=== PATIENT | male | born 1980 | race Caucasian/White ===

== ENCOUNTER 2017-04-30 17:39 | Emergency (ER) ==
[~2017-04-30] VITALS: Ht 170.2 cm; Wt 104.3 kg
--- OUTSIDE RECORDS SUMMARY | 2017-04-30 17:42 | XMS REPORT | Clinical Summary ---
Author Author [facility] Address Unknown Phone Unavailable Care Team Providers Care Workforce Management Analyst Name Role Phone Asked, Pcp PCP Unavailable Allergies Active Allergy Reactions Severity Noted Date Comments Phenytoin Sodium Extended 11/26/2008 Phenytoin Sodium Extended Swelling High 12/23/2016 Current Medications Prescription Sig. Disp. Refills Start End Date Status Date levothyroxine (SYNTHROID, Take by mouth. Active LEVOXYL) 100 mcg tablet LISINOPRIL ORAL Take by mouth. Active metFORMIN (GLUCOPHAGE) Take 500 mg by mouth 2 Active 500 mg tablet (two) times a day with meals. chlordiazePOXIDE Take 1 capsule (25 mg 42 capsule 0 12/26/19 (LIBRIUM) 25 MG capsule total) by mouth 3 (three) 17 17 times a day as needed for anxiety for up to 21 days. TID x Week 1 BID x Week 2 Daily x Week3 cyclobenzaprine Take 1 tablet (10 mg 20 tablet 0 12/26/19 01/25/20 (FLEXERIL) 10 mg tablet total) by mouth 2 (two) 17 17 times a day as needed for muscle spasms for up to 30 days. ondansetron (ZOFRAN, Take 1 tablet (4 mg 20 tablet 0 12/26/1909/06 HYDROCHLORIDE,) 4 MG total) by mouth every 8 17 17 tablet (eight) hours as needed for nausea or vomiting for up to 30 days. chlordiazePOXIDE Take 2 capsules (50 mg 40 capsule 0 12/24/19 (LIBRIUM) 25 MG capsule total) by mouth 3 (three) 17 17 times a day as needed for anxiety for up to 7 days. loperamide (IMODIUM) 2 mg Take 1 capsule (2 mg 12 capsule 0 12/24/19 01/03/20 capsule total) by mouth 4 (four) 17 17 times a day as needed for diarrhea for up to 10 days. ondansetron (ZOFRAN) 4 MG Take 1 tablet (4 mg 20 tablet 0 12/24/19 12/31/19 tablet total) by mouth every 6 17 17 (six) hours as needed for nausea or vomiting for up to 7 days. chlordiazePOXIDE Take 1 capsule (25 mg 10 capsule 0 01/21/20 (LIBRIUM) 25 MG capsule total) by mouth 3 (three) 17 17 times a day as needed for withdrawal for up to 3 days. chlordiazePOXIDE Take 1 capsule (25 mg 30 capsule 0 03/29/19 (LIBRIUM) 25 MG capsule total) by mouth 3 (three) 18 18 times a day as needed for withdrawal for up to 7 days. Active Problems Not on file Encounters Date Type Specialty Care Team Description 03/28/2017 Emergency Emergency Medicine Ngoc Bates, Alcohol withdrawal - DO syndrome without 03/29/2017 complication (Primary Dx); Heroin withdrawal 01/22/2017 Emergency Emergency Medicine Luke Peña MD Contusion of forehead, initial encounter (Primary Dx); Laceration of forehead, initial encounter 01/22/2017 Emergency Emergency Medicine 01/21/2017 Emergency Emergency Medicine Luke Peña MD Seizure (Primary Dx) - 01/22/2017 01/20/2017 Emergency Emergency Medicine Jackie Wallace Alcohol withdrawal - syndrome without 01/21/2017 complication (Primary Dx); Laceration of forehead, initial encounter 01/19/2017 Emergency Emergency Medicine Jackie Wallace Alcohol withdrawal - syndrome without 01/20/2017 complication (Primary Dx) 12/25/2016 Emergency Emergency Medicine Roger Luis MD Withdrawal complaint Micheal Taylor MD (Primary Dx); Drug abuse 12/23/2016 Emergency Emergency Medicine Chanelle Adamson Heroin withdrawal - (Primary Dx); 12/24/2016 Archie Gage Forehead lacerationChristo MD subsequent encounter; Seizure 11/30/2016 Emergency Emergency Medicine Norinsky, John B., Injury of head, initial DO encounter (Primary Dx) 11/19/2016 Emergency Emergency Medicine John Crowe Laceration of forehead, MD Archie initial encounter (Primary Dx) 11/12/2016 Emergency Emergency Medicine Jackie Wallace Laceration (Primary Dx) 11/12/2016 Emergency Emergency Medicine John Sandoval, Scalp laceration, initial DO encounter (Primary Dx); Head injury, initial encounter 07/13/2016 Emergency Emergency Medicine John Sandoval, Hyperglycemia (Primary DO Dx); Vomiting, intractability of vomiting not specified, presence of nausea not specified, unspecified vomiting type; Alcoholism 2016 [facility] Emergency Medicine Physician, Emergency, MD Encounter John Sandoval, DO 2016 Orders Only Emergency Medicine John Sandoval, DO after 04/29/2016 Immunizations Name Dates Previously Given Next Due Tdap 11/19/2016 Social History Tobacco Use Types Packs/Day Years Used Date Current Every Day Smoker 2 Smokeless Tobacco: Never Used Alcohol Use Drinks/Week oz/Week Comments Yes Sex Assigned at Date Recorded Not on file Last Filed Vital Signs Vital Sign Reading Time Taken Blood Pressure 152/89 03/29/2017 2:15 AM CREPING MACHINE OPERATOR HELPER Pulse 76 03/29/2017 2:15 AM CREPING MACHINE OPERATOR HELPER Temperature 36.8 C (98.3 F) 03/29/2017 2:15 AM CREPING MACHINE OPERATOR HELPER Respiratory Rate 15 03/29/2017 2:15 AM CREPING MACHINE OPERATOR HELPER Oxygen Saturation 96% 03/29/2017 2:15 AM CREPING MACHINE OPERATOR HELPER Inhaled Oxygen - - Concentration Weight 97.5 kg (215 lb) 01/22/2017 11:10 PM CREPING MACHINE OPERATOR HELPER Height 172.7 cm (5' 8") 03/28/2017 11:39 PM CREPING MACHINE OPERATOR HELPER Body Mass Index 32.69 01/22/2017 11:10 PM CREPING MACHINE OPERATOR HELPER Plan of Treatment Health Maintenance Due Date Last Done Comments INFLUENZA VACCINE 09/18/2016 Procedures Procedure Name Priority Date/Time Associated Diagnosis Comments IN RESUPERF WND FACE <2.5 Routine 11/18/2016 Results for this CM 4:00 AM CDT procedure are in the results section. IN RESUPERF WND FACE <2.5 Routine 11/12/2016 Results for this CM 10:24 PM CDT procedure are in the results section. after 04/29/2016 Results * Estimated GFR (03/29/2017 12:36 AM) Only the most recent of 9 results within the time period is included. Component Value Ref Range GFR Non Af Amer >90 mL/min/1.73 m2 GFR Af Amer >90 mL/min/1.73 m2 Comment: Chronic kidney disease: <60 mL/min/1.73m2 Kidney failure: <15 mL/min/1.73m2 The estimated GFR is calculated from the IDMS-traceable Modification of Diet in Renal Disease Equation. The accuracy of the calculation is poor when the creatinine is normal. Calculated values >90 mL/min/1.73m2 are not reported. This equation has not been validated in children (<18 years), women, the elderly (>70 years), or ethnic groups other than Caucasians and Americans. Specimen Performing Laboratory Plasma [place] [facility] [place] [address] [place] [address] * CBC with platelet and differential (03/29/2017 12:36 AM) Only the most recent of 9 results within the time period is included. Component Value Ref Range WBC 6.8 4.2 - 11.0 k/uL RBC 4.80 4.04 - 5.86 m/uL HGB 14.8 13.0 - 17.3 g/dL HCT 43.8 34.0 - 45.0 % MCV 91.3 80.0 - 98.0 fL MCH 30.8 27.0 - 34.0 pg MCHC 33.8 31.5 - 36.5 g/dL RDW - SD 44.2 37.0 - 51.0 fL MPV 8.8 7.4 - 10.4 fL Platelet count 187 150 - 400 k/uL Nucleated RBC 0.00 /100 WBC Neutrophils 61.7 36.0 - 66.0 % Lymphocytes 26.0 24.0 - 44.0 % Monocytes 9.0 (H) 0.0 - 6.0 % Eosinophils 2.5 0.0 - 6.0 % Basophils 0.4 0.0 - 1.2 % Immature granulocytes 0.4 0.0 - 1.0 % Specimen Performing Laboratory Blood [facility] [place] [facility] [address] [place] [address] * Creatine kinase, total (CPK) (03/29/2017 12:36 AM) Only the most recent of 3 results within the time period is included. Component Value Ref Range Creatine kinase 314 (H) 61 - 224 U/L Specimen Performing Laboratory Plasma specimen [facility] [place] [address] [place] [address] * Comprehensive metabolic panel (03/29/2017 12:36 AM) Only the most recent of 5 results within the time period is included. Component Value Ref Range Sodium 136 135 - 150 mEq/L Potassium 3.8 3.5 - 5.0 mEq/L Chloride 99 (L) 100 - 109 mEq/L CO2 30 24 - 32 mmol/L Anion gap 7 7 - 15 mEq/L Comment: Starting from May , anion gap calculation no longer incorporates potassium. Please note the change. BUN 8 7 - 18 mg/dL Creatinine 0.8 0.8 - 1.5 mg/dL Glucose 110 (H) 65 - 100 mg/dL Calcium 8.7 8.6 - 10.7 mg/dL Protein 8.1 6.3 - 8.2 g/dL Albumin 3.7 3.2 - 5.0 g/dL A/G ratio 0.8 0.7 - 3.8 Alkaline phosphatase 81 30 - 120 U/L AST 122 (H) 15 - 37 U/L ALT 149 (H) 30 - 65 U/L Total bilirubin 0.8 0.2 - 1.2 mg/dL Specimen Performing Laboratory Plasma specimen [facility] [address] [place] [address] * ECG ED Preliminary Interpretation - NOT AN ORDER (01/22/2017 2:01 AM) Only the most recent of 4 results within the time period is included. Narrative Luke Peña MD 01/22/20172:01 AM ECG ED Preliminary Interpretation - Not an Order Performed by: LUKE PEÑA Authorized by: LUKE PEÑA Rate: ECG rate:63 ECG rate assessment: normal Rhythm: Rhythm: sinus rhythm Ectopy: Ectopy: none QRS: QRS axis:Normal Conduction: Conduction: normal ST segments: ST segments:Normal T waves: T waves: normal * Troponin (01/21/2017 7:27 PM) Component Value Ref Range Troponin <0.01 0.00 - 0.60 ng/mL Comment: 0.11 - 1.49 ng/ml May indicate increased risk of acute coronary syndrome. >=1.5 ng/ml Consistent with acute myocardial infarction. The diagnostic value of a single normal or non-diagnostic result is questionable. Serial samples at 2-6 hour intervals are required to rule out acute myocardial injury. Specimen Performing Laboratory Plasma specimen [facility] [place] [address] [facility] [place] [address] * B natriuretic peptide (01/21/2017 7:27 PM) Component Value Ref Range BNP 35 0 - 100 pg/mL Specimen Performing Laboratory Blood [facility] [place] [address] [place] [address] * Lipase level (01/21/2017 7:27 PM) Only the most recent of 3 results within the time period is included. Component Value Ref Range Lipase 146 65 - 230 U/L Specimen Performing Laboratory Plasma specimen [facility] [place] [place] [facility] [address] [facility] [place] [address] * CT Head Wo Contrast (01/21/2017 7:11 PM) Only the most recent of 6 results within the time period is included. Specimen Performing Laboratory [facility] [address] [place] [address] Narrative EXAMINATION:CT HEAD WO CONTRAST CT IMAGING WAS PERFORMED WITH ITERATIVE RECONSTRUCTION TECHNIQUE AND/OR AUTOMATED EXPOSURE CONTROL TO REDUCE RADIATION DOSE. CLINICAL HISTORY:trauma COMPARISON:CT brain January 20, 2017. FINDINGS: 1.There is no acute intracranial abnormality demonstrated. Specifically there is no intracranial hemorrhage, mass effect or acute infarction. 2. There is an apparent small left frontal scalp contusion. There is also question of periorbital contusion on the left. There is no skull fracture. 3.There is no significant intracranial abnormality. 4.There is minimal mucosal thickening in the ethmoid sphenoid and maxillary sinuses. IMPRESSION: No acute intracranial abnormality and no change from the prior study. [facility] [id number] Procedure Note Interface, Radiology Results Incoming - 01/21/2017 7:22 PM CREPING MACHINE OPERATOR HELPER EXAMINATION: CT HEAD WO CONTRAST CT IMAGING WAS PERFORMED WITH ITERATIVE RECONSTRUCTION TECHNIQUE AND/OR AUTOMATED EXPOSURE CONTROL TO REDUCE RADIATION DOSE. CLINICAL HISTORY: trauma COMPARISON: CT brain January 20, 2017. FINDINGS: 1. There is no acute intracranial abnormality demonstrated. Specifically there is no intracranial hemorrhage, mass effect or acute infarction. 2. There is an apparent small left frontal scalp contusion. There is also question of periorbital contusion on the left. There is no skull fracture. 3. There is no significant intracranial abnormality. 4. There is minimal mucosal thickening in the ethmoid sphenoid and maxillary sinuses. IMPRESSION: No acute intracranial abnormality and no change from the prior study. [facility] [id number] * ECG 12 lead (01/21/2017 6:52 PM) Only the most recent of 5 results within the time period is included. Component Value Ref Range Ventricular rate 63 Atrial rate 63 IN interval 158 QRSD interval 82 QT interval 420 QTC interval 429 P axis 1 41 QRS axis 1 50 T wave axis 25 EKG impression Normal sinus rhythm-Normal ECG-In automated comparison with ECG of 20-JAN-2017 00:32,-No significant change was found- Specimen Performing Laboratory [facility] [address] [place] [address] * Thyroid stimulating hormone (01/20/2017 8:58 PM) Only the most recent of 2 results within the time period is included. Component Value Ref Range TSH 2.70 0.38 - 4.82 uIU/mL Specimen Performing Laboratory Plasma specimen [facility] [place] [address] [facility] [place] [address] * Alcohol level, blood (01/20/2017 8:58 PM) Only the most recent of 4 results within the time period is included. Component Value Ref Range Alcohol None Detected mg/dL Comment: Normal None Detected Legal Intoxication in [place] 80 mg/dL (0.08%) Toxic Concentration 200 mg/dL (0.2%) Potentially Fatal 350-500 mg/dL (0.35%-0.5%) Alcohol percent None Detected % Specimen Performing Laboratory Blood [facility] [place] [address] [facility] [place] [address] * Acetaminophen level (01/20/2017 8:58 PM) Only the most recent of 2 results within the time period is included. Component Value Ref Range Acetaminophen level <2.0 (L) 10.0 - 20.0 ug/mL Comment: Therapeutic 10-30 ug/mL Possible Toxicity 150-200 ug/mL Probable Toxicity >200 ug/mL Specimen Performing Laboratory Blood [facility] [place] [address] [facility] [place] [address] * Salicylate level (01/20/2017 8:58 PM) Only the most recent of 2 results within the time period is included. Component Value Ref Range Salicylate <1.7 mg/dL Comment: Therapeutic Range: 5 - 30 mg/dL Specimen Performing Laboratory Blood [facility] [place] [address] [place] [address] * Basic metabolic panel (01/20/2017 8:58 PM) Only the most recent of 4 results within the time period is included. Component Value Ref Range Sodium 137 135 - 150 mEq/L Potassium 3.3 (L) 3.5 - 5.0 mEq/L Chloride 105 100 - 109 mEq/L CO2 25 24 - 32 mmol/L Anion gap 7 7 - 15 mEq/L Comment: Starting from May , anion gap calculation no longer incorporates potassium. Please note the change. BUN 10 7 - 18 mg/dL Creatinine 0.9 0.8 - 1.5 mg/dL Glucose 91 65 - 100 mg/dL Calcium 8.6 8.6 - 10.7 mg/dL Specimen Performing Laboratory Plasma specimen [facility] [address] [place] [address] [place] [address] * XR Chest 1 Vw (01/20/2017 1:16 AM) [facility] [address] [place] [address] Narrative EXAMINATION: XR CHEST 1 VW CLINICAL HISTORY: psych eval withdrawal COMPARISON:01/06/2016. IMPRESSION: The lungs are clear. No pleural effusion or pneumothorax. The cardiomediastinal silhouette is normal. No acute osseous abnormalities. [facility] [id number] Procedure Note Interface, Radiology Results Incoming - 01/20/2017 1:26 AM CREPING MACHINE OPERATOR HELPER EXAMINATION: XR CHEST 1 VW CLINICAL HISTORY: psych eval withdrawal COMPARISON: 01/06/2016. IMPRESSION: The lungs are clear. No pleural effusion or pneumothorax. The cardiomediastinal silhouette is normal. No acute osseous abnormalities. [facility] [id number] * T4, free (01/20/2017 12:44 AM) Component Value Ref Range T4, free 0.85 0.70 - 1.61 ng/dL Specimen Performing Laboratory Plasma specimen [facility] [place] [address] [place] [address] * POC glucose (01/19/2017 10:30 PM) Only the most recent of 2 results within the time period is included. Component Value Ref Range POC glucose 91 65 - 100 mg/dL Comment: Meter ID: [id number] Rn Coronary Care Unit: Brody Rosa Specimen Performing Laboratory [facility] [place] [address] [place] [address]. [place] [address] * Hepatic function panel (12/25/2016 2:10 PM) Component Value Ref Range Albumin 3.8 3.2 - 5.0 g/dL Total bilirubin 0.4 0.2 - 1.2 mg/dL Bilirubin direct 0.1 0.0 - 0.4 mg/dL Alkaline phosphatase 112 30 - 120 U/L Protein 7.8 6.3 - 8.2 g/dL ALT 41 30 - 65 U/L AST 24 15 - 37 U/L Specimen Performing Laboratory Plasma specimen [facility] [place] [address] [place] [address]. [place] [address] * Partial thromboplastin time, activated (12/23/2016 10:43 PM) Only the most recent of 4 results within the time period is included. Component Value Ref Range PTT 32.2 23.0 - 36.0 sec Comment: PTT therapeutic range for unfractionated heparin is 61.0-112.0 seconds which corresponds to Anti-Xa 0.3-0.7 U/ml. Note: Change in Panic Value The PTT Panic Value is changing from 110 sec. to 100 sec. due to new instrumentation and reagents. Correlation studies have been performed to validate this result. Specimen Performing Laboratory Blood [facility] [place] [address] [place] [address]. [place] [address] * Prothrombin time with INR (12/23/2016 10:43 PM) Only the most recent of 4 results within the time period is included. Component Value Ref Range Prothrombin time 13.0 12.0 - 15.0 sec INR 0.97 0.92 - 1.12 Comment: For patients on anticoagulant therapy, reference ranges below: Indication: INR Value Treatment of Venous Thrombosis, 2.0-3.0 pulmonary emboli, or prophylaxis of a venous thrombosis, or systemic emboli. High dose, high risk patients 3.0-4.5 with mechanical valves. NOTE: INR values over 3.0 are sometimes associated with gastrointestinal hemorrhage, especially values over 4.0. Specimen Performing Laboratory Blood [facility] [place] [place] [facility] [address] [place] [address] * LACERATION REPAIR (11/18/2016 4:00 AM) Pelon Sandoval DO 11/18/20164:00 AM Laceration Repair Performed by: ASHLIE NICOLE Authorized by: JOHN SANDOVAL Consent: Consent obtained:Verbal Consent given by:Patient Risks discussed:Retained foreign body, infection, pain, poor cosmetic result, poor wound healing, nerve damage, need for additional repair and vascular damage Alternatives discussed:No treatment Anesthesia (see MAR for exact dosages): Anesthesia method:Local infiltration Local anesthetic:Lidocaine 1% w/o epi Laceration details: Location:Face Face location:Forehead Length (cm):1.5 Repair type: Repair type:Simple Pre-procedure details: Preparation:Patient was prepped and draped in usual sterile fashion Exploration: Hemostasis achieved with:Direct pressure Wound exploration: wound explored through full range of motion and entire depth of wound probed and visualized Wound extent: no muscle damage noted, no underlying fracture noted, no vascular damage noted and no amputation Contaminated: no Treatment: Area cleansed with:Betadine Amount of cleaning:Extensive Irrigation solution:Sterile saline Irrigation volume:100 Irrigation method:Pressure wash Visualized foreign bodies/material removed: no Skin repair: Repair method:Sutures Suture size:5-0 Suture material:Prolene Suture technique:Simple interrupted Number of sutures:5 Approximation: Approximation:Close Post-procedure details: Dressing:Antibiotic ointment Patient tolerance of procedure:Tolerated well, no immediate complications * LACERATION REPAIR (11/12/2016 10:24 PM) Pelon Wallace MD 11/12/2016 10:24 PM Laceration Repair Performed by: ASHLIE NICOLE Authorized by: JACKIE WALLACE Consent: Consent obtained:Verbal Consent given by:Patient Risks discussed:Infection, need for additional repair, nerve damage, poor wound healing, poor cosmetic result, vascular damage, retained foreign body, pain and tendon damage Alternatives discussed:Delayed treatment Anesthesia (see MAR for exact dosages): Anesthesia method:Local infiltration Local anesthetic:Lidocaine 1% w/o epi Laceration details: Location:Face Face location:Forehead Length (cm):2 Repair type: Repair type:Simple Pre-procedure details: Preparation:Patient was prepped and draped in usual sterile fashion Exploration: Wound extent: no areolar tissue violation noted, no fascia violation noted, no foreign bodies/material noted, no muscle damage noted, no nerve damage noted, no tendon damage noted, no underlying fracture noted, no vascular damage noted and no amputation Contaminated: no Treatment: Area cleansed with:Betadine Amount of cleaning:Extensive Irrigation solution:Sterile saline Irrigation volume:100 Irrigation method:Pressure wash Visualized foreign bodies/material removed: no Skin repair: Repair method:Sutures Suture size:4-0 Suture material:Prolene Suture technique:Simple interrupted Number of sutures:5 Approximation: Approximation:Close Post-procedure details: Dressing:Antibiotic ointment Patient tolerance of procedure:Tolerated well, no immediate complications * CT Abdomen Pelvis W Contrast (2016 8:41 AM) Specimen Performing Laboratory [address] [address] Narrative Examination: CT ABDOMEN W PELVIS W Clinical history: Abdominal pain Comparison: None Technique: Multiple computerized axial tomographic images were obtained of the abdomen and pelvis following administration of IV contrast.Sagittal and coronal computerized reformatted images were also obtained.Enteric contrast was not administered. CT scans are performed using radiation dose reduction techniques. Technical factors are evaluated and adjusted to ensure appropriate moderation of exposure.Automated dose management technology is applied to adjust radiation exposure while achieving a diagnostic quality image. IMPRESSION: Minimal atelectasis is present within the visualized lung bases. Abdomen: 1. Generalized hypodensity throughout the liver is compatible fatty infiltration. Mild lobulation of the peripheral margins of the liver, particularly inferiorly, could represent early changes of cirrhosis. The spleen is mildly enlarged. The splenic, superior mesenteric, and portal veins are patent. The pancreas, adrenal glands, and kidneys are unremarkable. 2. The pancreatic and biliary ducts are not dilated. The abdominal aorta is normal caliber. 3.The bowel is not dilated, though cannot be formally evaluated given absence of enteric contrast. A moderate amount of stool is present throughout the colon. 4.4 separate midline anterior abdominal wall defects are associated with herniation of fat. The largest defect is left of midline and above the umbilicus and is associated with herniation of an approximately 10.4 x 5.2 x 9.2 cm collection of fat. There is no herniated bowel. Pelvis: 1.The prostate is not enlarged. The bladder appears normal. 2.There is no acute osseous pathology. CONCLUSION: 1. FATTY LIVER, POSSIBLY WITH MINIMAL CIRRHOTIC CHANGE. MILD SPLENOMEGALY.. 2. MULTIPLE ANTERIOR ABDOMINAL WALL DEFECTS WITH FAT-CONTAINING HERNIAS. 3. PLEASE SEE ABOVE FOR FULL DETAILS. [facility] [id number] Procedure Note [facility], Radiology Conversion - 2016 8:52 AM CDT Examination: CT ABDOMEN W PELVIS W Clinical history: Abdominal pain Comparison: None Technique: Multiple computerized axial tomographic images were obtained of the abdomen and pelvis following administration of IV contrast.Sagittal and coronal computerized reformatted images were also obtained. Enteric contrast was not administered. CT scans are performed using radiation dose reduction techniques. Technical factors are evaluated and adjusted to ensure appropriate moderation of exposure. Automated dose management technology is applied to adjust radiation exposure while achieving a diagnostic quality image. IMPRESSION: Minimal atelectasis is present within the visualized lung bases. Abdomen: 1. Generalized hypodensity throughout the liver is compatible fatty infiltration. Mild lobulation of the peripheral margins of the liver, particularly inferiorly, could represent early changes of cirrhosis. The spleen is mildly enlarged. The splenic, superior mesenteric, and portal veins are patent. The pancreas, adrenal glands, and kidneys are unremarkable. 2. The pancreatic and biliary ducts are not dilated. The abdominal aorta is normal caliber. 3. The bowel is not dilated, though cannot be formally evaluated given absence of enteric contrast. A moderate amount of stool is present throughout the colon. 4. 4 separate midline anterior abdominal wall defects are associated with herniation of fat. The largest defect is left of midline and above the umbilicus and is associated with herniation of an approximately 10.4 x 5.2 x 9.2 cm collection of fat. There is no herniated bowel. Pelvis: 1. The prostate is not enlarged. The bladder appears normal. 2. There is no acute osseous pathology. CONCLUSION: 1. FATTY LIVER, POSSIBLY WITH MINIMAL CIRRHOTIC CHANGE. MILD SPLENOMEGALY.. 2. MULTIPLE ANTERIOR ABDOMINAL WALL DEFECTS WITH FAT-CONTAINING HERNIAS. 3. PLEASE SEE ABOVE FOR FULL DETAILS. [facility] [id number] * Urine culture screen (2016 7:51 AM) Component Value Ref Range Color, UA Yellow Appearance, UA Clear Specific gravity, UA 1.040 (H) 1.001 - 1.035 pH, UA 5.0 5.0 - 8.5 Protein, UA 2+ (A) Negative Glucose, UA 3+ (A) Negative Ketones, UA 1+ (A) Negative Bilirubin, UA Negative Negative Blood, UA Trace (A) Negative Nitrite, UA Negative Negative Urobilinogen, UA Negative <2.0 Leukocyte esterase, UA Negative Negative Epithelial cells, UA Few /HPF WBC, UA 1 0 - 1 /HPF RBC, UA 2 0 - 1 /HPF Bacteria, UA None seen None seen Yeast, UA None seen Yeast with pseudohyphae, None seen UA Specimen Performing Laboratory [facility] [place] [facility] [place] [address] [place] [address] after 04/29/2016
--- OUTSIDE RECORDS SUMMARY | 2017-04-30 17:42 | XMS REPORT ---
Author [facility] Address Unknown Phone Unavailable Care Team Providers Care [employer] Name Role Phone Unavailable Unavailable Problems This patient has no known problems. Allergies, Adverse Reactions, Alerts This patient has no known allergies or adverse reactions. Medications This patient has no known medications. Encounters Start Date/Time End Date/Time Encounter Type Admission Type Attending [facility] Facility Care Department Encounter ID 2016-08-23 01:10:50 Inpatient [facility] [id number] 2016-11-30 00:00:00 2016-12-18 00:00:00 [facility] [id number] 2016-12-17 21:45:00 2016-12-17 21:45:00 [facility] [id number] 2016-11-19 00:00:00 2016-11-21 00:00:00 [facility] [id number] 2016-11-12 00:00:00 2016-11-13 00:00:00 [facility] [id number] 2016-07-13 00:00:00 2016-11-08 00:00:00 [facility] [id number] 2016-09-12 13:37:14 2016-09-12 13:37:14 Outpatient [facility] [id number] 2016-09-03 00:00:00 2016-09-03 00:00:00 Outpatient [facility] [id number] 2016-09-03 00:00:00 2016-09-03 00:00:00 Outpatient [facility] [id number] 2016-08-23 22:07:54 2016-08-23 00:00:00 Inpatient [facility] [id number] 2016-08-17 17:25:07 2016-08-17 17:25:07 Emergency [facility] [id number] 2016-08-17 14:54:31 2016-08-17 14:54:31 Inpatient [facility] [id number]
[2017-04-30] MEDS ORDERED: MULTIVITAMINS- 12 INJECTION 10 ML, FOLIC ACID MDV 5 MG, THIAMINE HCL INJ 100 MG in SODI... IV ONE (18:00)
[2017-04-30 18:13] LABS: BASOPHILS % 0.6 % (0.0-1.0); EOSINOPHILS # (AUTO) 0.2 (0.0-0.4); EOSINOPHILS % 2.5 % (0.0-6.0); HEMATOCRIT 44.9 % (38.2-49.6); HEMOGLOBIN 15.9 g/dL (14.0-18.0); LYMPHOCYTES # (AUTO) 2.5 (1.0-3.2); MEAN CORPUSCULAR HGB CONC 35.4 g/dL (31-35); MEAN CORPUSCULAR VOLUME 90.3 fL (81-99); MONOCYTES # (AUTO) 0.7 (0.2-0.8); MONOCYTES % 9.7 % (4.4-11.3); NEUTROPHILS # (AUTO) 3.3 (2.1-6.9); NEUTROPHILS % 49.5 % (38.7-80.0); PLATELET COUNT 172 x10e3/uL (140-360); RED BLOOD COUNT 4.97 x10e6/uL (4.3-5.7); RED CELL DISTRIBUTION WIDTH 14.4 % (11.7-14.4)
[2017-04-30 18:15] LABS: BILIRUBIN,URINE NEGATIVE (NEGATIVE); CLARITY,URINE CLEAR (CLEAR); COLOR,URINE YELLOW (YELLOW); KETONES,URINE NEGATIVE (NEGATIVE); LEUKOCYTE ESTERASE ,URINE NEGATIVE (NEGATIVE); NITRITE,URINE NEGATIVE (NEGATIVE); URINE UROBILINOGEN 0.2 mg/dL (0.2 - 1)
[2017-04-30 18:16] LABS: AMPHETAMINES SCREEN,URINE POSITIVE (NEGATIVE); BENZODIAZEPINES SCREEN,URINE POSITIVE (NEGATIVE); PHENCYCLIDINE SCREEN,URINE NEGATIVE (NEGATIVE)
[2017-04-30 18:17] LABS: PROTEIN,URINE DIPSTICK 1+ (NEGATIVE)
[2017-04-30 18:21] LABS: MUCUS,URINE FEW (RARE); RBC,URINE 0-5 /HPF (0-5); WBC,URINE (MAN) 0-5 /HPF (0-5)
[2017-04-30 18:25] LABS: INR 1.04; PROTHROMBIN TIME 12.8 seconds (11.9-14.5)
[2017-04-30 18:26] LABS: PARTIAL THROMBOPLASTIN TIME 29.2 seconds (23.8-35.5)
[2017-04-30 18:33] LABS: ALANINE AMINOTRANSFERASE 394 IU/L (0-55); ALBUMIN/GLOBULIN RATIO 0.9 (0.8-2.0); ALKALINE PHOSPHATASE 131 IU/L (40-150); ANION GAP 18.9 mmol/L (8-16); BLOOD UREA NITROGEN 5 mg/dL (7-26); BUN/CREATININE RATIO 7 (6-25); CALCIUM 8.9 mg/dL (8.4-10.2); CARBON DIOXIDE 22 mmol/L (22-29); CHLORIDE 98 mmol/L (98-107); CREATINE KINASE 446 IU/L (30-200); CREATININE, SERUM 0.74 mg/dL (0.72-1.25); EST GLOMERULAR FILTRATION RATE > 60 ML/MIN (60-); GLUCOSE 187 mg/dL (74-118); LIPASE 73 U/L (8-78); POTASSIUM 3.9 mmol/L (3.5-5.1); SODIUM 135 mmol/L (136-145)
--- NOTE | 2017-04-30 18:33 | Diagnostic Imaging Report ---
PROCEDURE: A single AP view of the chest. COMPARISON: Patients [facility], , CHEST 2 VIEWS, 06/08/2016, 13:47. INDICATIONS: pain all over FINDINGS: Lines/tubes: None. Lungs: The lungs are well inflated and clear. There is no evidence of pneumonia or pulmonary edema. Pleura: There is no pleural effusion or pneumothorax. Heart and mediastinum: The heart and the mediastinum are unremarkable. Bones: No acute bony abnormality. IMPRESSION: 1. No acute cardiopulmonary abnormalities Lauri Melvin M.D. Dictated by: Lauri Melvin M.D. on 04/30/2017 at 18:32 Electronically approved by: Lauri Melvin M.D. on 04/30/2017 at 18:32
[2017-04-30 18:46] LABS: ACETAMINOPHEN < 3 ug/mL (10-30); PHENYTOIN (DILANTIN) < 0.5 ug/mL (10-20); SALICYLATE < 5.0 mg/dL (0-30); VALPROIC ACID < 2 ug/mL (50-100)
[2017-04-30 18:59] LABS: FREE THYROXINE INDEX 1.8754 (1.4-3.8); THYROID STIMULATING HORMONE 2.492 uIU/mL (0.350-4.940)
== END 2017-04-30 19:14 | disposition left against medical advice (07) ==
LOC: ER 17:39
DX: F15.90 Other stimulant use, unspecified, uncomplicated (principal); R52 Pain, unspecified; F17.210 Nicotine dependence, cigarettes, uncomplicated
CPT/HCPCS: 36415; 71045; 80053; 80164; 80185; 80307; 80320; 80329 ×2; 81001; 82550; 82553; 83690; 84436; 84443; 84479; 84484; 85025; 85610; 85730; 93005; 99283; J3411; J7030

== ENCOUNTER 2018-09-28 18:55 | Emergency (ER) | payer SELFPAY ==
[~2018-09-28] VITALS: Ht 170.2 cm; Wt 104.3 kg
--- OUTSIDE RECORDS SUMMARY | 2018-09-28 18:58 | XMS REPORT | Clinical Summary ---
Author Author [facility] Organization [facility] Address Unknown Phone Unavailable Care Team Providers Care Cafeteria Cashier Name Role Phone PCP Unavailable Allergies Comments Active Allergy Reactions Severity Noted Date Phenytoin Sodium Extended 11/26/2008 Medications End Date Status Medication Sig Dispensed Refills Start Date Active METFORMIN HCL (METFORMIN Take by 0 OR) mouth. Active Miscellaneous Medical by 1 Each 0 Supply MiscIndications: Misc.(Non-Ralph 7 Ventral incisional hernia g; Combo Route) route Please provide patient with rolling walker that is at bedside.. 10/06/2018 Active ciprofloxacin HCl (CIPRO) Take 1 tablet 82 tablet 0 750 mg tabletIndications: by mouth 2 9 Hardware complicating times daily wound infection, initial for 41 days. encounter 10/06/2018 Active doxycycline monohydrate Take 1 82 capsule 0 (MONODOX) 100 mg capsule by 9 capsuleIndications: mouth every Hardware complicating 12 hours for wound infection, initial 41 days. encounter Active levothyroxine (SYNTHROID) Take 1 tablet 90 tablet 1 25 mcg tabletIndications: by mouth 9 Hypothyroidism, every morning unspecified type (before breakfast). Active amLODIPine (NORVASC) 10 Take 1 tablet 90 tablet 0 mg tabletIndications: by mouth 9 Essential hypertension daily. Active cloNIDine HCl (CATAPRES) Take 1 tablet 90 tablet 0 0.1 mg tabletIndications: by mouth 9 ETOH abuse every 12 hours. 08/26/2018 Discontinued LEVOTHYROXINE SODIUM Take by 0 (SYNTHROID OR) mouth. 08/26/2018 Discontinued LISINOPRIL OR Take by 0 mouth. 08/26/2018 Discontinued DIVALPROEX SODIUM Take by 0 (DEPAKOTE OR) mouth. 08/26/2018 Discontinued acetaminophen-codeine Take 1 tablet 15 tablet 0 (TYLENOL/CODEINE #3) by mouth 7 300-30 mg per every 4 hours tabletIndications: as needed for Periumbilical pain, Pain. Hernia 08/26/2018 Discontinued ondansetron (ZOFRAN) 4 mg Take 1 tablet 10 tablet 0 tabletIndications: by mouth 7 Periumbilical pain, every 8 hours Hernia as needed for up to 10 doses for Nausea. 08/26/2018 Discontinued gabapentin (NEURONTIN) Take 1 60 capsule 0 300 mg capsule by 7 capsuleIndications: mouth 3 times Ventral incisional hernia daily. 08/26/2018 Discontinued traMADol (ULTRAM) 50 mg Take 2 60 tablet 0 tabletIndications: tablets by 7 Ventral incisional hernia mouth every 6 hours as needed for Pain. 08/26/2018 Discontinued ondansetron (ZOFRAN) 4 mg Take 1 tablet 20 tablet 0 tabletIndications: by mouth 7 Ventral incisional hernia every 8 hours as needed for Nausea. 09/15/2018 acetaminophen-codeine Take 1 tablet 20 tablet 0 (TYLENOL/CODEINE #3) by mouth 2 9 300-30 mg per times daily tabletIndications: as needed for Hardware complicating up to 20 days wound infection, initial for Pain. encounter 08/26/2018 Discontinued amLODIPine (NORVASC) 10 Take 1 tablet 90 tablet 0 mg tabletIndications: by mouth 9 Essential hypertension daily. 08/26/2018 Discontinued cloNIDine HCl (CATAPRES) Take 1 tablet 90 tablet 0 0.1 mg tabletIndications: by mouth 9 ETOH abuse every 12 hours. Active Problems Problem Noted Date Hypothyroidism 08/26/2018 Hardware complicating wound infection 08/23/2018 Infection following procedure 08/21/2018 Hypertension 08/21/2018 Diabetes mellitus 08/21/2018 COPD (chronic obstructive pulmonary disease) 08/21/2018 Currently unemployed and looking for work 08/21/2018 Problems related to release from [facility] 08/21/2018 Uninsured 08/21/2018 Deconditioned low back 08/21/2018 Homelessness 08/21/2018 Surgical site infection 08/20/2018 Overview: Added automatically from request for surgery [id number] Alcohol intoxication 07/17/2017 ETOH abuse 07/17/2017 Ventral incisional hernia s/p open repair with mesh 08/1808/18/2016 Periumbilical pain 08/17/2016 Hernia Generalized abdominal pain Jaundice Accidental acetaminophen overdose Cellulitis of left lower extremity Altered level of consciousness Resolved Problems Problem Noted Date Resolved Date Alcohol withdrawal syndrome with perceptual disturbance 08/20/2018 08/26/2018 Left ankle pain 08/26/2018 Encounters Care Team Description Date Type Specialty Christo Foster MD NO SHOW ENCOUNTER (Primary Dx) 09/19/2018 Office Visit Orthopedics Hari Yesicasherlyn Ashton 08/29/2018 Clinical Case Social Work Mgt Hari Yesicaneri Ashton 08/28/2018 Clinical Case Social Work Mgt 08/27/2018 Emergency Emergency Medicine Juanjo Danielson ResidentMD 08/21/2018 Anesthesia Event Jamie Castle MD Irrigation and debridement of left ankle and wound vac placement 08/21/2018 Surgery Latasha Murillo MD Agrawal, Anoop, MD Hardware complicating wound infection, initial encounter (Primary Dx); Cellulitis of left lower extremity; Chronic pain of left ankle; Altered level of consciousness; ETOH abuse; Surgical site infection; Alcohol withdrawal syndrome with perceptual disturbance; Hypertension, unspecified type; Ventral incisional hernia s/p open repair with mesh 08/18; Hypothyroidism, unspecified type; Essential hypertension 08/20/2018 Hospital - Encounter 08/26/2018 08/20/2018 Travel Sergei Lima MD Pain of left lower extremity (Primary Dx); Cellulitis of left lower extremity; ETOH abuse 08/09/2018 Emergency Emergency Medicine 08/09/2018 Travel Darwin Teixeira MD Trauma (Primary Dx); Accidental acetaminophen overdose, initial encounter 08/03/2018 Emergency Emergency Medicine - 08/04/2018 08/03/2018 Travel after 09/27/2017 Family History Relation Name Status Comments Father Other Social History Date Tobacco Use Types Packs/Day Years Used Current Every Day Smoker Smokeless Tobacco: Never Used Comments: depending how much i can get Drinks/Week oz/Week Comments Alcohol Use last ETOh 08/18/18 1/2 a gallon of wisky per day Yes Sex Assigned at Date Recorded Not on file Industry Job Start Date Occupation Not on file Not on file Not on file Travel End Travel History Travel Start No recent travel history available. Last Filed Vital Signs Reading Time Taken Comments Vital Sign 142/90 08/27/2018 5:05 PM CDT Blood Pressure 108 08/27/2018 5:05 PM CDT Pulse 37.2 C (98.9 F) 08/27/2018 5:05 PM CDT Temperature 16 08/27/2018 5:05 PM CDT Respiratory Rate 96% 08/27/2018 5:05 PM CDT Oxygen Saturation - - Inhaled Oxygen Concentration 104.3 kg (230 lb) 08/21/2018 12:05 AM CDT bed weight per pt i cant stand Weight 172.7 cm (5' 8") 08/21/2018 12:05 AM CDT Height 34.97 08/21/2018 12:05 AM CDT Body Mass Index Plan of Treatment Care Team Description Date Type Specialty 10/03/2018 Office Visit Infectious Diseases Health Maintenance Due Date Last Done Comments DM Foot Exam (Yearly) 1998 DM Microalbumin Urine 1998 Scrn (Yearly) DM Retinal Exam (Yearly) 1998 IMM Influenza Seasonal 11/18/2018Nov to April (>/=19 yrs) DM HGBA1C (Yearly) 08/23/2019 08/22/2018, 08/18/2016 Implants Device Identifier Shelf Expiration Date Model / Serial / Lot Implanted Type Area Manufactur er 11/17/2017 [id number] / / [id number] Proceed Surgical Mesh Anterior: Implanted: Qty: 1 on 08/20/2016 by Abdomen Rohit Reza MD at [facility] Procedures Comments Procedure Name Priority Date/Time Associated Diagnosis CONSULT CLINICAL CASE Routine 08/26/2018 MANAGEMENT (RN/SW) 10:02 AM CDT GLUCOSE POC Routine 08/26/2018 9:01 AM CDT CONSULT CLINICAL CASE Routine 08/26/2018 MANAGEMENT (RN/SW) 4:43 AM CDT BASIC METABOLIC PANEL Routine 08/26/2018 4:26 AM CDT CBC (WITHOUT Routine 08/26/2018 DIFFERENTIAL) 4:26 AM CDT PHOSPHORUS Routine 08/26/2018 4:26 AM CDT MAGNESIUM Routine 08/26/2018 4:26 AM CDT PT/INR/PTT Routine 08/26/2018 4:26 AM CDT GLUCOSE POC Routine 08/25/2018 8:39 PM CDT GLUCOSE POC Routine 08/25/2018 5:45 PM CDT GLUCOSE POC Routine 08/25/2018 12:08 PM CDT GLUCOSE POC Routine 08/25/2018 8:35 AM CDT BASIC METABOLIC PANEL Routine 08/25/2018 3:43 AM CDT CBC (WITHOUT Routine 08/25/2018 DIFFERENTIAL) 3:43 AM CDT PHOSPHORUS Routine 08/25/2018 3:43 AM CDT MAGNESIUM Routine 08/25/2018 3:43 AM CDT PT/INR/PTT Routine 08/25/2018 3:43 AM CDT GLUCOSE POC Routine 08/24/2018 8:33 PM CDT GLUCOSE POC Routine 08/24/2018 5:39 PM CDT GLUCOSE POC Routine 08/24/2018 12:38 PM CDT GLUCOSE POC Routine 08/24/2018 9:05 AM CDT BASIC METABOLIC PANEL Routine 08/24/2018 2:50 AM CDT CBC (WITHOUT Routine 08/24/2018 DIFFERENTIAL) 2:50 AM CDT PHOSPHORUS Routine 08/24/2018 2:50 AM CDT MAGNESIUM Routine 08/24/2018 2:50 AM CDT PT/INR/PTT Routine 08/24/2018 2:50 AM CDT GLUCOSE POC Routine 08/23/2018 8:48 PM CDT GLUCOSE POC Routine 08/23/2018 5:06 PM CDT GLUCOSE POC Routine 08/23/2018 12:36 PM CDT GLUCOSE POC Routine 08/23/2018 8:31 AM CDT FERRITIN Add-on 08/23/2018 1:57 AM CDT IRON PROFILE Add-on 08/23/2018 1:57 AM CDT BASIC METABOLIC PANEL Routine 08/23/2018 1:57 AM CDT CBC (WITHOUT Routine 08/23/2018 DIFFERENTIAL) 1:57 AM CDT PHOSPHORUS Routine 08/23/2018 1:57 AM CDT MAGNESIUM Routine 08/23/2018 1:57 AM CDT PT/INR/PTT Routine 08/23/2018 1:57 AM CDT VANCOMYCIN, TROUGH Routine 08/23/2018 1:57 AM CDT GLUCOSE POC Routine 08/22/2018 8:49 PM CDT IP CONSULT WITH INSIGHT Routine 08/22/2018 8:18 PM CDT GLUCOSE POC Routine 08/22/2018 6:03 PM CDT GLUCOSE POC Routine 08/22/2018 12:43 PM CDT NUTRITION CONSULT Routine 08/22/2018 ASSESSMENT 9:29 AM CDT GLUCOSE POC Routine 08/22/2018 9:00 AM CDT CBC Add-on 08/22/2018 2:14 AM CDT BASIC METABOLIC PANEL Add-on 08/22/2018 2:14 AM CDT CBC/DIFF Add-on 08/22/2018 2:14 AM CDT PHOSPHORUS Routine 08/22/2018 2:14 AM CDT MAGNESIUM Routine 08/22/2018 2:14 AM CDT PT/INR/PTT Routine 08/22/2018 2:14 AM CDT HEMOGLOBIN A1C Routine 08/22/2018 2:14 AM CDT GLUCOSE POC Routine 08/21/2018 9:07 PM CDT GLUCOSE POC Routine 08/21/2018 5:26 PM CDT WOUND VAC SYSTEM Routine 08/21/2018 2:52 PM CDT IP CONSULT TO PHYSICAL Routine 08/21/2018 THERAPY 2:52 PM CDT AFB STAIN AND CULTURE Routine 08/21/2018 11:37 AM CDT AFB STAIN AND CULTURE Routine 08/21/2018 11:31 AM CDT TISSUE CULTURE AND GRAM Routine 08/21/2018 Surgical site infection STAIN 10:59 AM CDT FUNGUS STAIN AND CULTURE Routine 08/21/2018 Surgical site infection 10:59 AM CDT ANAEROBE CULTURE Routine 08/21/2018 Surgical site infection 10:59 AM CDT TISSUE CULTURE AND GRAM Routine 08/21/2018 Surgical site infection STAIN 10:51 AM CDT FUNGUS STAIN AND CULTURE Routine 08/21/2018 Surgical site infection 10:51 AM CDT ANAEROBE CULTURE Routine 08/21/2018 Surgical site infection 10:51 AM CDT INTUBATION Routine 08/21/2018 10:41 AM CDT Procedure Note - Juanjo Danielson ResidentMD - 08/21/2018 10:41 AM CDT Intubation Date/Time: 08/21/2018 10:28 AM Urgency: elective Airway not difficult General Informatio n and Staff Patient location during procedure: OR Anesthesio logist: Sundar Bobo MD Resident/C RNA: Juanjo Danielson ResidentMD Performed: resident/C RNA Indicatio ns and Patient Condition Indication s for airway management : anesthesia Spontaneou s Ventilatio n: absent Sedation level: deep Preoxygena kenisha: yes Patient position: sniffing Mask difficulty assessment : 1 - vent by mask Final Airway Details Final airway type: supraglott ic airway Successful airway: I-Gel Size 4 Number of attempts at approach: 1 ORTHO - I&D [IRRIGATION 08/21/2018 Surgical site infection AND DEBRIDEMENT], 9:58 AM CDT EXTREMITY Special Needs tubing; 6L normal saline; culture swabs INFUSION PUMP Routine 08/21/2018 5:55 AM CDT CONSULT CLINICAL CASE Routine 08/21/2018 MANAGEMENT (RN/SW) 5:16 AM CDT IP CONSULT WITH INSIGHT Routine 08/21/2018 4:56 AM CDT HEPATITIS PANEL Routine 08/21/2018 3:16 AM CDT PHOSPHORUS Routine 08/21/2018 3:16 AM CDT MAGNESIUM Routine 08/21/2018 3:16 AM CDT FOLIC ACID Routine 08/21/2018 3:16 AM CDT VITAMIN B12 Routine 08/21/2018 3:16 AM CDT COMPREHENSIVE METABOLIC Routine 08/21/2018 PANEL 3:16 AM CDT PT/INR/PTT Routine 08/21/2018 3:16 AM CDT IP CONSULT TO PHYSICAL Routine 08/20/2018 THERAPY 9:50 PM CDT 12 LEAD EKG Routine 08/20/2018 5:01 PM CDT TROPONIN I POC Routine 08/20/2018 4:57 PM CDT ALCOHOL, MEDICAL USE ONLY Add-on 08/20/2018 4:45 PM CDT OSMOLALITY,SERUM Add-on 08/20/2018 4:45 PM CDT VALPROIC ACID STAT 08/20/2018 4:45 PM CDT AMMONIA STAT 08/20/2018 4:45 PM CDT ABG POC Routine 08/20/2018 4:04 PM CDT XRAY FOOT 3 VIEWS MIN STAT 08/20/2018 Cellulitis of left lower 3:56 PM CDT extremity XRAY ANKLE 3 VIEW MIN STAT 08/20/2018 Cellulitis of left lower 3:56 PM CDT extremity SED RATE STAT 08/20/2018 3:56 PM CDT C-REACTIVE PROTEIN HIGH STAT 08/20/2018 SENSITIVITY (CRP-HS) 3:56 PM CDT BMP POC Routine 08/20/2018 11:20 AM CDT CBC STAT 08/20/2018 11:16 AM CDT CBC/DIFF STAT 08/20/2018 11:16 AM CDT ABG POC Routine 08/09/2018 8:18 AM CDT BMP POC Routine 08/09/2018 8:18 AM CDT CBC STAT 08/09/2018 8:18 AM CDT LIVER PROFILE STAT 08/09/2018 8:18 AM CDT CBC/DIFF STAT 08/09/2018 8:18 AM CDT XRAY FOOT 3 VIEWS - STAT 08/09/2018 Pain of left lower ROUTINE 6:03 AM CDT extremity XRAY ANKLE 3 VIEWS - STAT 08/09/2018 Pain of left lower ROUTINE 6:03 AM CDT extremity XRAY ANKLE 2 VIEW MIN STAT 08/04/2018 Trauma 1:45 AM CDT XRAY TIBIA AND FIBULA 2 STAT 08/04/2018 Trauma VIEWS 1:45 AM CDT BMP POC Routine 08/03/2018 10:49 PM CDT ALCOHOL, MEDICAL USE ONLY STAT 08/03/2018 10:44 PM CDT PT/INR STAT 08/03/2018 10:44 PM CDT LIVER PROFILE STAT 08/03/2018 10:44 PM CDT SALICYLATE STAT 08/03/2018 10:44 PM CDT ACETAMINOPHEN STAT 08/03/2018 10:44 PM CDT CBC (WITHOUT STAT 08/03/2018 DIFFERENTIAL) 10:44 PM CDT after 09/27/2017 Results * GLUCOSE POC (08/26/2018 9:01 AM CDT) Only the most recent of 19 results within the time period is included. Glucose POC 187 (H) 74 - 106 mg/dL [facility] Specimen Blood Performing Organization Address [facility] Phone Number [facility] [address] [place] [address] * PT/INR/PTT (08/26/2018 4:26 AM CDT) Only the most recent of 6 results within the time period is included. PT 13.6 11.8 - 15.0 Seconds [facility] INR 1.1 Refer to INR ranges [facility] Comment: [facility] 2.0 - 3.0 for moderate intensity anticoagulation 2.5 - 3.5 for high intensity anticoagulation PTT 30.2 23.6 - 36.4 Seconds [facility] Comment: [facility] The recommended therapuetic range is an APTT 61-103 seconds which corresponds to 0.3-0.7 anti Xa u/ml. Specimen Blood Performing Organization Address [facility] Phone Number [facility] [address], [place] [id number] * PHOSPHORUS (08/26/2018 4:26 AM CDT) Only the most recent of 6 results within the time period is included. Phosphorus 4.9 2.5 - 5.0 mg/dL [facility] Specimen Blood Performing Organization Address [facility] Phone Number [facility] [address] [place] [address] * MAGNESIUM (08/26/2018 4:26 AM CDT) Only the most recent of 6 results within the time period is included. Magnesium 1.8 (L) 1.9 - 2.7 mg/dL [facility] Specimen Blood Performing Organization Address [facility] Phone Number [facility] [address] [place] [address] * CBC (WITHOUT DIFFERENTIAL) (08/26/2018 4:26 AM CDT) Only the most recent of 5 results within the time period is included. WBC 5.5 4.5 - 12.0 K/uL [facility] RBC 2.99 (L) 4.60 - 6.20 M/uL [facility] Hemoglobin 8.3 (L) 14.0 - 18.0 g/dL [facility] Hematocrit 27.2 (L) 40.0 - 54.0 % [facility] MCV 91.0 82.0 - 92.0 fL [facility] MCH 27.8 27.0 - 31.0 pg [facility] MCHC 30.5 (L) 32.0 - 36.0 g/dL [facility] RDW 47.3 (H) 35.1 - 43.9 fL [facility] Platelet 285 150 - 400 K/uL [facility] Mean Platelet 8.4 (L) 9.4 - 12.4 fL [facility] Volume [facility] Percent NRBC 0.0 % [facility] Specimen Blood Performing Organization Address [facility] Phone Number [facility] [address] [place] [address] * BASIC METABOLIC PANEL (08/26/2018 4:26 AM CDT) Only the most recent of 5 results within the time period is included. Sodium 136 136 - 145 mmol/L [facility] Potassium 4.3 3.5 - 5.1 mmol/L [facility] Chloride 102 98 - 107 mmol/L [facility] CO2 27 21 - 31 mmol/L [facility] Urea Nitrogen 11.0 7.0 - 25.0 mg/dL [facility] Creatinine 0.8 0.7 - 1.3 mg/dL [facility] Glucose 131 (H) 70 - 110 mg/dL [facility] Calcium, Total 9.2 8.6 - 10.3 mg/dL [facility] GFR, Estimated >90 >=90 mL/min/1.73 m2 [facility] Anion Gap 7 5 - 16 mmol/L [facility] Specimen Blood Performing Organization Address [facility] Phone Number [facility] [address] [place] [address] * FERRITIN (08/23/2018 1:57 AM CDT) Ferritin 51.2 23.9 - 336.2 ng/mL [facility] Specimen Blood Performing Organization Address [facility] Phone Number [facility] [address] [place] [address] * VANCOMYCIN, TROUGH (08/23/2018 1:57 AM CDT) Vancomycin, 8.4 (L) 10.0 - 20.0 ug/mL [facility] T[facility] Specimen Blood Performing Organization Address [facility] Phone Number [facility] [address] [place] [address] * IRON PROFILE (08/23/2018 1:57 AM CDT) Iron 16 (L) 50 - 212 ug/dL [facility] TIBC 477 (H) 250 - 450 ug/dL [facility] % Iron Sat 3 % [facility] Transferrin 340.70 203.00 - 362.00 [facility] mg/dL [facility] Specimen Blood Performing Organization Address [facility] Phone Number [facility] [address] [place] [address] * CBC (08/22/2018 2:14 AM CDT) Only the most recent of 3 results within the time period is included. WBC 5.7 4.5 - 12.0 K/uL [facility] RBC 3.05 (L) 4.60 - 6.20 M/uL [facility] Hemoglobin 8.6 (L) 14.0 - 18.0 g/dL [facility] Hematocrit 28.9 (L) 40.0 - 54.0 % [facility] MCV 94.8 (H) 82.0 - 92.0 fL [facility] MCH 28.2 27.0 - 31.0 pg [facility] MCHC 29.8 (L) 32.0 - 36.0 g/dL [facility] RDW 50.5 (H) 35.1 - 43.9 fL [facility] Platelet 347 150 - 400 K/uL [facility] Mean Platelet 8.5 (L) 9.4 - 12.4 fL [facility] Percent NRBC 0.0 % [facility] Neutrophil 73.5 (H) 34.0 - 67.9 % [facility] Lymphocyte 10.5 (L) 21.8 - 50.0 % [facility] Monocyte 8.7 5.3 - 12.0 % [facility] Eosinophil 6.1 (H) 0.8 - 5.0 % [facility] Basophil 0.5 0.2 - 1.2 % [facility] Pct Immat Gran 0.7 (H) 0.0 - 0.5 % [facility] Neutrophil, Abs 4.21 1.78 - 5.36 K/uL [facility] Lymphocyte, Abs 0.60 (L) 1.32 - 3.57 K/uL [facility] Monocyte, Abs 0.50 0.30 - 0.82 K/uL [facility] Eosinophil, Abs 0.35 0.04 - 0.54 K/uL [facility] Basophil, Abs 0.03 0.01 - 0.08 K/uL [facility] Absol Immat 0.04 (H) 0.00 - 0.03 K/uL [facility] Gran [facility] Absolute 0.00 K/uL [facility] NRBC-CV [facility] Specimen Blood Narrative Performed At once per hospital admission [facility] Performing Organization Address [facility] Phone Number [facility] [address] [place] [address] * HEMOGLOBIN A1C (08/22/2018 2:14 AM CDT) Hemoglobin A1c 5.9 % [facility] Estimated 123 (H) 70 - 110 mg/dL [facility] Average Glucose LAB[facility]ATORY Specimen Blood Narrative Performed At once per hospital admission [facility] Performing Organization Address [facility] Phone Number [facility] [address] [place] [address] * TISSUE CULTURE AND GRAM STAIN (08/21/2018 10:59 AM CDT) Only the most recent of 2 results within the time period is included. Tissue Culture METHICILLIN RESISTANT [facility] STAPHYLOCOCCUS AUREUS (AA) LABORATORY Tissue Culture ACINETOBACTER BAUMANNII (A) [facility] Gram Stain 2+ WBCs [facility] Gram Stain No organisms seen [facility] Specimen Tissue - Joint, ankle, left Antibiotic Method Susceptibility Organism Clindamycin SENSITIVITY >2 ug/mL: Resistant Methicillin resistant Staphylococcus aureus Erythromycin SENSITIVITY >4 ug/mL: Resistant Methicillin resistant Staphylococcus aureus Levofloxacin SENSITIVITY >4 ug/mL: Resistant Methicillin resistant Staphylococcus aureus Oxacillin SENSITIVITY >2 ug/mL: Resistant Methicillin resistant Staphylococcus aureus Penicillin G SENSITIVITY >1 ug/mL: Resistant Methicillin resistant Staphylococcus aureus Rifampin SENSITIVITY <=0.5 ug/mL: Susceptible Methicillin resistant Staphylococcus aureus Trimethoprim-Sulfamethoxazole SENSITIVITY <=0.5/9.5 ug/mL: Susceptible Methicillin resistant Staphylococcus aureus Tetracycline SENSITIVITY <=0.5 ug/mL: Susceptible Methicillin resistant Staphylococcus aureus Vancomycin SENSITIVITY 1 ug/mL: Susceptible Methicillin resistant Staphylococcus aureus Amikacin SENSITIVITY <=8 ug/mL: Susceptible Acinetobacter baumannii Ampicillin-Sulbactam SENSITIVITY 2/1 ug/mL: Susceptible Acinetobacter baumannii Cefepime SENSITIVITY <=1 ug/mL: Susceptible Acinetobacter baumannii Ceftazidime SENSITIVITY 8 ug/mL: Susceptible Acinetobacter baumannii Ceftriaxone SENSITIVITY 16 ug/mL: Intermediate Acinetobacter baumannii Ciprofloxacin SENSITIVITY <=0.5 ug/mL: Susceptible Acinetobacter baumannii Gentamicin SENSITIVITY <=2 ug/mL: Susceptible Acinetobacter baumannii Meropenem SENSITIVITY <=0.5 ug/mL: Susceptible Acinetobacter baumannii Tobramycin SENSITIVITY <=2 ug/mL: Susceptible Acinetobacter baumannii Trimethoprim-Sulfamethoxazole SENSITIVITY <=0.5/9.5 ug/mL: Susceptible Acinetobacter baumannii Performing Organization Address [facility] Phone Number [facility] [address] [place] [address] * FUNGUS STAIN AND CULTURE (08/21/2018 10:59 AM CDT) Only the most recent of 2 results within the time period is included. Fungus Culture No fungus isolated in 4 weeks [facility] Specimen Tissue - Joint, ankle, left Performing Organization Address [facility] Phone Number [facility] [address] [place] [address] * ANAEROBE CULTURE (08/21/2018 10:59 AM CDT) Only the most recent of 2 results within the time period is included. Anaerobe No anaerobes isolated in 5 [facility] Culture days [facility] Specimen Tissue - Joint, ankle, left Performing Organization Address [facility] Phone Number [facility] [address] [place] [address] * COMPREHENSIVE METABOLIC PANEL (08/21/2018 3:16 AM CDT) Sodium 138 136 - 145 mmol/L [facility] Potassium 4.1 3.5 - 5.1 mmol/L [facility] Chloride 100 98 - 107 mmol/L [facility] CO2 28 21 - 31 mmol/L [facility] Glucose 124 (H) 70 - 110 mg/dL [facility] Calcium, Total 9.7 8.6 - 10.3 mg/dL [facility] [facility] Urea Nitrogen 10.0 7.0 - 25.0 mg/dL [facility] Creatinine 0.6 (L) 0.7 - 1.3 mg/dL [facility] Alkaline 91 34 - 104 U/L [facility] ALT 71 (H) 7 - 52 U/L [facility] AST 89 (H) 13 - 39 U/L [facility] Total Bilirubin 0.5 0.2 - 1.2 mg/dL [facility] Total Protein 6.7 6.0 - 8.3 g/dL [facility] GFR, Estimated >90 >=90 mL/min/1.73 m2 [facility] Albumin 4.2 4.2 - 5.5 g/dL [facility] Anion Gap 10 5 - 16 mmol/L [facility] Specimen Blood Performing Organization Address [facility] Phone Number [facility] [address] [place] [address] * FOLIC ACID (08/21/2018 3:16 AM CDT) Folic Acid 15.1 5.9 - 24.8 ng/mL [facility] Specimen Blood Performing Organization Address [facility] Phone Number [facility] [address] [place] [address] * VITAMIN B12 (08/21/2018 3:16 AM CDT) Pathologist [facility] Vitamin B12 270 See comment pg/mL [facility] Comment: [facility] Normal: 180-914 pg/mL Intermittent: 145-180 pg/mL Deficient: <=145.0 pg/mL Specimen Blood Performing Organization Address [facility] Phone Number [facility] [address] [place] [address] * HEPATITIS PANEL (08/21/2018 3:16 AM CDT) Pathologist [facility] Hep C Vir Ab Negative Negative [facility] Hep B Surface Negative Negative [facility] Hep A Vir Ab Negative Negative [facility] Hep B Core Ab Negative Negative [facility] IgM [facility] Specimen Blood Performing Organization Address [facility] Phone Number [facility] [address] [place] [address] * 12 LEAD EKG (08/20/2018 5:01 PM CDT) Pathologist [facility] 12 LEAD EKG FOR [facility] Test Date:2018-08-20 Pat Name: LESVIA COTA Department: Room: [place] [address] Gender: M Metal Furrer: [id number] Requested By: LATASHA Alexander Order Number: [id number] Reading MD: Bhavna Arceo M.D. Measurements Intervals [place] Rate: 93 P:70 AK: 148 QRS: 60 QRSD: 87 T:45 QT: 378 QTc:472 Interpretive Statements SINUS RHYTHM Reviewed by Electronically Signed On 08-20-2018 17:53:26 CDT by Bhavna Arceo M.D. Specimen Performing Organization Address [facility] Phone Number [facility] * TROPONIN I POC (08/20/2018 4:57 PM CDT) Pathologist [facility] Troponin POC 0.01 0.00 - 0.08 ng/mL [facility] Specimen Blood, venous Performing Organization Address [facility] Phone Number [facility] [address] [place] [address] * VALPROIC ACID (08/20/2018 4:45 PM CDT) Valproic Acid 19.4 (L) 50.0 - 100.0 ug/mL [facility] Specimen Blood Performing Organization Address [facility] Phone Number [facility] [address] [place] [address] * OSMOLALITY,SERUM (08/20/2018 4:45 PM CDT) Osmolality, 290 266 - 300 mOsm/kg [facility] Serum [facility] Specimen Blood Performing Organization Address [facility] Phone [facility] [address] [place] [address] * AMMONIA (08/20/2018 4:45 PM CDT) Ammonia 74.0 (H) 16.0 - 53.0 umol/L [facility] Specimen Blood Performing Organization Address [facility] Phone Number [facility] [address] [place] [address] * ALCOHOL, MEDICAL USE ONLY (08/20/2018 4:45 PM CDT) Only the most recent of 2 results within the time period is included. ALCOHOL, SERUM 0.01 <0.10 g/dL [facility] Specimen Blood Performing Organization Address [facility] Phone Number [facility] [address] [place] [address] * ABG POC (08/20/2018 4:04 PM CDT) Only the most recent of 2 results within the time period is included. pH, Art POC 7.44 7.35 - 7.45 [facility] pCO2, Arterial 38.9 32 - 45 mmHg [facility] pO2, Arterial 35 (LL) 72 - 104 mmHg [facility] Base Excss Art 2 mmol/L [facility] HCO3, Arterial 27 (H) 22 - 26 mmol/L [facility] % Sat, Art POC 69 % [facility] TCO2, ART POC 28 21 - 32 mmol/L [facility] Lactic Acid POC 1.94 0.40 - 2.00 mmol/L [facility] Sample Type IARTComment: --- [facility] ETCO2 [facility] Specimen Blood, arterial Performing Organization Address City/State/Zipcode Phone Number [facility] [address] [place] [address] * XRAY FOOT 3 VIEWS MIN (08/20/2018 3:56 PM CDT) Specimen Impressions Performed At IMPRESSION: [facility] 1.Plate and screw fixation of comminuted fracture of the distal fibula with interval placement of a transsyndesmotic screw. 2.Transsyndesmotic screw is fractured at its mid shaft. If the report is "FINALIZED" it indicates that the attending/staff radiologist has reviewed the images and agrees with the resident's interpretation. Dictated By: Naren Loya MD, 08/20/2018 4:32 PM I have reviewed the study and agree with the findings in this report. Signed By: Meir Carlin MD, 08/20/2018 4:59 PM Narrative Performed At Left foot radiographs - 3 view(s), 3 images [facility] Left ankle radiographs - 3 view(s), 3 images HISTORY:Pain COMPARISON: Left foot and ankle radiographs dated 08/09/2018. DISCUSSION: Bone: Plate and screw fixation of previously described comminuted fracture of the distal fibula. Interval placement of transsyndesmotic screw, which is fractured at the mid shaft. Interval placement of metallic plate along the medial malleolus. Plantar calcaneal enthesopathy. No aggressive osseous lesion. Joints: The joint spaces are well-maintained. No dislocation. Soft tissues: Soft tissue swelling over the lateral malleolus. Procedure Note Interface, Rad/Mammog In - 08/20/2018 5:04 PM CDT Left foot radiographs - 3 view(s), 3 images Left ankle radiographs - 3 view(s), 3 images HISTORY: Pain COMPARISON: Left foot and ankle radiographs dated 08/09/2018. DISCUSSION: Bone: Plate and screw fixation of previously described comminuted fracture of the distal fibula. Interval placement of transsyndesmotic screw, which is fractured at the mid shaft. Interval placement of metallic plate along the medial malleolus. Plantar calcaneal enthesopathy. No aggressive osseous lesion. Joints: The joint spaces are well-maintained. No dislocation. Soft tissues: Soft tissue swelling over the lateral malleolus. IMPRESSION IMPRESSION: 1. Plate and screw fixation of comminuted fracture of the distal fibula with interval placement of a transsyndesmotic screw. 2. Transsyndesmotic screw is fractured at its mid shaft. If the report is "FINALIZED" it indicates that the attending/staff radiologist has reviewed the images and agrees with the resident's interpretation. Dictated By: Naren Loya MD, 08/20/2018 4:32 PM I have reviewed the study and agree with the findings in this report. Signed By: Meir Carlin MD, 08/20/2018 4:59 PM Performing Organization Address City/State/Zipcode Phone Number [facility] * XRAY ANKLE 3 VIEW MIN (08/20/2018 3:56 PM CDT) Specimen Impressions Performed At IMPRESSION: [facility] 1.Plate and screw fixation of comminuted fracture of the distal fibula with interval placement of a transsyndesmotic screw. 2.Transsyndesmotic screw is fractured at its mid shaft. If the report is "FINALIZED" it indicates that the attending/staff radiologist has reviewed the images and agrees with the resident's interpretation. Dictated By: Naren Loya MD, 08/20/2018 4:32 PM I have reviewed the study and agree with the findings in this report. Signed By: Meir Carlin MD, 08/20/2018 4:59 PM Narrative Performed At Left foot radiographs - 3 view(s), 3 images [facility] Left ankle radiographs - 3 view(s), 3 images HISTORY:Pain COMPARISON: Left foot and ankle radiographs dated 08/09/2018. DISCUSSION: Bone: Plate and screw fixation of previously described comminuted fracture of the distal fibula. Interval placement of transsyndesmotic screw, which is fractured at the mid shaft. Interval placement of metallic plate along the medial malleolus. Plantar calcaneal enthesopathy. No aggressive osseous lesion. Joints: The joint spaces are well-maintained. No dislocation. Soft tissues: Soft tissue swelling over the lateral malleolus. Procedure Note Interface, Rad/Mammog In - 08/20/2018 5:04 PM CDT Left foot radiographs - 3 view(s), 3 images Left ankle radiographs - 3 view(s), 3 images HISTORY: Pain COMPARISON: Left foot and ankle radiographs dated 08/09/2018. DISCUSSION: Bone: Plate and screw fixation of previously described comminuted fracture of the distal fibula. Interval placement of transsyndesmotic screw, which is fractured at the mid shaft. Interval placement of metallic plate along the medial malleolus. Plantar calcaneal enthesopathy. No aggressive osseous lesion. Joints: The joint spaces are well-maintained. No dislocation. Soft tissues: Soft tissue swelling over the lateral malleolus. IMPRESSION IMPRESSION: 1. Plate and screw fixation of comminuted fracture of the distal fibula with interval placement of a transsyndesmotic screw. 2. Transsyndesmotic screw is fractured at its mid shaft. If the report is "FINALIZED" it indicates that the attending/staff radiologist has reviewed the images and agrees with the resident's interpretation. Dictated By: Naren Loya MD, 08/20/2018 4:32 PM I have reviewed the study and agree with the findings in this report. Signed By: Meir Carlin MD, 08/20/2018 4:59 PM Performing Organization Address [facility] Phone Number [facility] * C-REACTIVE PROTEIN HIGH SENSITIVITY (CRP-HS) (08/20/2018 3:56 PM CDT) Pathologist [facility] CRP, High 21.6 (H) <1.0 mg/dL [facility] Specimen Blood Performing Organization Address [facility] Phone Number [facility] [address] [place] [address] * SED RATE (08/20/2018 3:56 PM CDT) Pathologist [facility] Sed Rate 40 (H) 0-<15 mm/Hr [facility] Specimen Blood Performing Organization Address [facility] Phone Number [facility] [address] [place] [address] * BMP POC (08/20/2018 11:20 AM CDT) Only the most recent of 3 results within the time period is included. Sodium POC 141 136 - 145 mmol/L [facility] Potassium POC 3.8 3.5 - 5.1 mmol/L [facility] Chloride POC 103 98 - 107 mmol/L [facility] TCO2 POC 27 21 - 32 mmol/L [facility] Urea Nitrogen 7 7 - 18 mg/dL [facility] Creatinine POC 0.7 0.6 - 1.3 mg/dL [facility] Glucose POC 189 (H) 74 - 106 mg/dL [facility] Ionized Calcium 1.17 1.15 - 1.29 mmol/L [facility] GFR, Estimated >90 >=90 mL/min/1.73 m2 [facility] Hemoglobin POC 9.5 (L)Comment: Physician 12 - 16 g/dL [facility] Hematocrit POC 28.0 (L) 37.0 - 47.0 % [facility] Specimen Blood, venous Performing Organization Address [facility] Phone Number [facility] [address] [place] [address] * LIVER PROFILE (08/09/2018 8:18 AM CDT) Only the most recent of 2 results within the time period is included. Total Protein 7.1 6.0 - 8.3 g/dL [facility] Total Bilirubin 0.7 0.2 - 1.2 mg/dL [facility] Alkaline 99 34 - 104 U/L [facility] AST 31 13 - 39 U/L [facility] Direct 0.3 (H) 0.0 - 0.2 mg/dL [facility] Bilirubin [facility] ALT 27 7 - 52 U/L [facility] Albumin 4.3 4.2 - 5.5 g/dL [facility] Specimen Blood Performing Organization Address [facility] Phone Number [facility] [address] [place] [address] * XRAY FOOT 3 VIEWS - ROUTINE (08/09/2018 6:03 AM CDT) Specimen Impressions Performed At IMPRESSION: [facility] 1.No acute radiographic abnormality. 2.Status post ORIF of a distal fibular fracture with plate and screw construct. No evidence of hardware failure or loosening. 3.Stable swelling of the ankle and foot. If the report is "FINALIZED" it indicates that the attending/staff radiologist has reviewed the images and agrees with the resident's interpretation. Dictated By: Eliud Atkinson DO, 08/09/2018 6:07 AM I have reviewed the study and agree with the findings in this report. Signed By: Radha Muñiz MD, 08/09/2018 8:59 AM Narrative Performed At EXAMINATION: XRAY FOOT 3 VIEWS - ROUTINE, XRAY ANKLE 3 VIEWS - ROUTINE [facility] SIDE: Left INDICATION: pain COMPARISON: None FINDINGS: BONES: Plate and screw construct along the lateral aspect of the distal fibula for an underlying incompletely healed comminuted fracture of the distal fibula. Fracture alignment is near anatomic. No evidence of hardware for anterior or loosening. No new fractures. Plantar calcaneal enthesophyte. JOINTS: No malalignment. SOFT TISSUES: Moderate swelling of the ankle and mild swelling of the foot, similar to comparison study. Procedure Note Interface, Rad/Mammog In - 08/09/2018 9:04 AM CDT EXAMINATION: XRAY FOOT 3 VIEWS - ROUTINE, XRAY ANKLE 3 VIEWS - ROUTINE SIDE: Left INDICATION: pain COMPARISON: None FINDINGS: BONES: Plate and screw construct along the lateral aspect of the distal fibula for an underlying incompletely healed comminuted fracture of the distal fibula. Fracture alignment is near anatomic. No evidence of hardware for anterior or loosening. No new fractures. Plantar calcaneal enthesophyte. JOINTS: No malalignment. SOFT TISSUES: Moderate swelling of the ankle and mild swelling of the foot, similar to comparison study. IMPRESSION IMPRESSION: 1. No acute radiographic abnormality. 2. Status post ORIF of a distal fibular fracture with plate and screw construct. No evidence of hardware failure or loosening. 3. Stable swelling of the ankle and foot. If the report is "FINALIZED" it indicates that the attending/staff radiologist has reviewed the images and agrees with the resident's interpretation. Dictated By: Eliud Atkinson DO, 08/09/2018 6:07 AM I have reviewed the study and agree with the findings in this report. Signed By: Radha Muñiz MD, 08/09/2018 8:59 AM Performing Organization Address City/State/Zipcode Phone Number [facility] * XRAY ANKLE 3 VIEWS - ROUTINE (08/09/2018 6:03 AM CDT) Specimen Impressions Performed At IMPRESSION: [facility] 1.No acute radiographic abnormality. 2.Status post ORIF of a distal fibular fracture with plate and screw construct. No evidence of hardware failure or loosening. 3.Stable swelling of the ankle and foot. If the report is "FINALIZED" it indicates that the attending/staff radiologist has reviewed the images and agrees with the resident's interpretation. Dictated By: Eliud Atkinson DO, 08/09/2018 6:07 AM I have reviewed the study and agree with the findings in this report. Signed By: Radha Muñiz MD, 08/09/2018 8:59 AM Narrative Performed At EXAMINATION: XRAY FOOT 3 VIEWS - ROUTINE, XRAY ANKLE 3 VIEWS - ROUTINE [facility] SIDE: Left INDICATION: pain COMPARISON: None FINDINGS: BONES: Plate and screw construct along the lateral aspect of the distal fibula for an underlying incompletely healed comminuted fracture of the distal fibula. Fracture alignment is near anatomic. No evidence of hardware for anterior or loosening. No new fractures. Plantar calcaneal enthesophyte. JOINTS: No malalignment. SOFT TISSUES: Moderate swelling of the ankle and mild swelling of the foot, similar to comparison study. Procedure Note Interface, Rad/Mammog In - 08/09/2018 9:04 AM CDT EXAMINATION: XRAY FOOT 3 VIEWS - ROUTINE, XRAY ANKLE 3 VIEWS - ROUTINE SIDE: Left INDICATION: pain COMPARISON: None FINDINGS: BONES: Plate and screw construct along the lateral aspect of the distal fibula for an underlying incompletely healed comminuted fracture of the distal fibula. Fracture alignment is near anatomic. No evidence of hardware for anterior or loosening. No new fractures. Plantar calcaneal enthesophyte. JOINTS: No malalignment. SOFT TISSUES: Moderate swelling of the ankle and mild swelling of the foot, similar to comparison study. IMPRESSION IMPRESSION: 1. No acute radiographic abnormality. 2. Status post ORIF of a distal fibular fracture with plate and screw construct. No evidence of hardware failure or loosening. 3. Stable swelling of the ankle and foot. If the report is "FINALIZED" it indicates that the attending/staff radiologist has reviewed the images and agrees with the resident's interpretation. Dictated By: Eliud Atkinson DO, 08/09/2018 6:07 AM I have reviewed the study and agree with the findings in this report. Signed By: Radha Muñiz MD, 08/09/2018 8:59 AM Performing Organization Address City/State/Zipcode Phone Number [facility] * XRAY ANKLE 2 VIEW MIN (08/04/2018 1:45 AM CDT) Specimen Impressions Performed At IMPRESSION: [facility] 1.No acute radiographic abnormality of the left tibia, fibula, and ankle. 2.A plate and screw surgical construct overlies and age-indeterminate nondisplaced fracture of the distal fibular diaphysis with subtle screw like lucencies at the tips of the second and third screws. However, no findings to suggest hardware failure. Dictated By: Laura Rodriguez MD, 08/04/2018 1:57 AM I have reviewed the study and agree with the findings in this report. Signed By: Endy Londono MD, 08/04/2018 2:12 AM Narrative Performed At EXAMINATION:XRAY TIBIA AND FIBULA 2 VIEWS, XRAY ANKLE 2 VIEW MIN [facility] SIDE: Left INDICATION: tenderness and warmth COMPARISON:None FINDINGS: BONES: No acute fracture. A plate and screw surgical construct overlies an age-indeterminate nondisplaced fracture of the distal fibular diaphysis. There is chronic lucencies at the tip of the second and third screws however, no findings to suggest hardware malfunction. A nonspecific osseous opacity posterior to the tibia, possibly a partially avulsed bone fragment. Small plantar calcaneal enthesophyte. JOINTS: No malalignment. SOFT TISSUES: Normal Procedure Note Interface, Rad/Mammog In - 08/04/2018 2:17 AM CDT EXAMINATION: XRAY TIBIA AND FIBULA 2 VIEWS, XRAY ANKLE 2 VIEW MIN SIDE: Left INDICATION: tenderness and warmth COMPARISON: None FINDINGS: BONES: No acute fracture. A plate and screw surgical construct overlies an age-indeterminate nondisplaced fracture of the distal fibular diaphysis. There is chronic lucencies at the tip of the second and third screws however, no findings to suggest hardware malfunction. A nonspecific osseous opacity posterior to the tibia, possibly a partially avulsed bone fragment. Small plantar calcaneal enthesophyte. JOINTS: No malalignment. SOFT TISSUES: Normal IMPRESSION IMPRESSION: 1. No acute radiographic abnormality of the left tibia, fibula, and ankle. 2. A plate and screw surgical construct overlies and age-indeterminate nondisplaced fracture of the distal fibular diaphysis with subtle screw like lucencies at the tips of the second and third screws. However, no findings to suggest hardware failure. Dictated By: Laura Rodriguez MD, 08/04/2018 1:57 AM I have reviewed the study and agree with the findings in this report. Signed By: Endy Londono MD, 08/04/2018 2:12 AM Performing Organization Address City/State/Zipcode Phone Number [facility] * XRAY TIBIA AND FIBULA 2 VIEWS (08/04/2018 1:45 AM CDT) Specimen Impressions Performed At IMPRESSION: [facility] 1.No acute radiographic abnormality of the left tibia, fibula, and ankle. 2.A plate and screw surgical construct overlies and age-indeterminate nondisplaced fracture of the distal fibular diaphysis with subtle screw like lucencies at the tips of the second and third screws. However, no findings to suggest hardware failure. Dictated By: Laura Rodriguez MD, 08/04/2018 1:57 AM I have reviewed the study and agree with the findings in this report. Signed By: Endy Londono MD, 08/04/2018 2:12 AM Narrative Performed At EXAMINATION:XRAY TIBIA AND FIBULA 2 VIEWS, XRAY ANKLE 2 VIEW MIN [facility] SIDE: Left INDICATION: tenderness and warmth COMPARISON:None FINDINGS: BONES: No acute fracture. A plate and screw surgical construct overlies an age-indeterminate nondisplaced fracture of the distal fibular diaphysis. There is chronic lucencies at the tip of the second and third screws however, no findings to suggest hardware malfunction. A nonspecific osseous opacity posterior to the tibia, possibly a partially avulsed bone fragment. Small plantar calcaneal enthesophyte. JOINTS: No malalignment. SOFT TISSUES: Normal Procedure Note Interface, Rad/Mammog In - 08/04/2018 2:17 AM CDT EXAMINATION: XRAY TIBIA AND FIBULA 2 VIEWS, XRAY ANKLE 2 VIEW MIN SIDE: Left INDICATION: tenderness and warmth COMPARISON: None FINDINGS: BONES: No acute fracture. A plate and screw surgical construct overlies an age-indeterminate nondisplaced fracture of the distal fibular diaphysis. There is chronic lucencies at the tip of the second and third screws however, no findings to suggest hardware malfunction. A nonspecific osseous opacity posterior to the tibia, possibly a partially avulsed bone fragment. Small plantar calcaneal enthesophyte. JOINTS: No malalignment. SOFT TISSUES: Normal IMPRESSION IMPRESSION: 1. No acute radiographic abnormality of the left tibia, fibula, and ankle. 2. A plate and screw surgical construct overlies and age-indeterminate nondisplaced fracture of the distal fibular diaphysis with subtle screw like lucencies at the tips of the second and third screws. However, no findings to suggest hardware failure. Dictated By: Laura Rodriguez MD, 08/04/2018 1:57 AM I have reviewed the study and agree with the findings in this report. Signed By: Endy Londono MD, 08/04/2018 2:12 AM Performing Organization Address [facility] Phone Number [facility] * SALICYLATE (08/03/2018 10:44 PM CDT) Salicylate <2.5 (L) 2.8 - 30 mg/dL [facility] Specimen Blood Performing Organization Address [facility] Phone Number [facility] [address] [place] [address] * PT/INR (08/03/2018 10:44 PM CDT) PT 13.2 11.8 - 15.0 Seconds [facility] INR 1.0 Refer to INR ranges [facility] Comment: LAB[facility]ATORY 2.0 - 3.0 for moderate intensity anticoagulation 2.5 - 3.5 for high intensity anticoagulation Specimen Blood Performing Organization Address [facility] Phone Number [facility] [address] [place] [address] * ACETAMINOPHEN (08/03/2018 10:44 PM CDT) Acetaminophen 103.81 (H) 10.00 - 30.00 ug/mL [facility] Comment: [facility]ORATORY Please refer to acetaminophen nomogram. Specimen Blood Performing Organization Address [facility] Phone Number [facility] [address] [place] [address] after 09/27/2017 Insurance Type Payer Benefit Subscriber ID Effective Phone Address Plan / Dates Group [facility] SELF-PAY SELF-PAY xxxxxxx 2016- [phone] [address] [place] [address] Advance Directives Date Inactivated Comments Code Status Date Activated 08/26/2018 2:45 PM Full Code 08/20/2018 9:50 PM 08/27/2016 6:31 PM Full Code 08/18/2016 4:12 AM
--- OUTSIDE RECORDS SUMMARY | 2018-09-28 18:59 | XMS REPORT | Clinical Summary ---
Author Author [facility] Address Unknown Phone Unavailable Care Team Providers Care Fumigator And Sterilizer Name Role Phone Asked, No Pcp PCP Unavailable Allergies Comments Active Allergy Reactions Severity Noted Date Reports oral swelling Phenytoin Sodium Extended Swelling High 12/23/2016 Phenytoin Sodium Extended 06/27/2017 Medications End Date Status Medication Sig Dispensed Refills Start Date Active gabapentin (NEURONTIN) Take 300 mg 0 300 mg capsule by mouth 2 7 (two) times a day. Active clonIDINE HCl (CATAPRES) Take 0.3 mg 0 0.3 MG tablet by mouth daily. Active levothyroxine (SYNTHROID, Take 25 mcg 0 LEVOXYL) 25 mcg tablet by mouth every morning. Active divalproex (DEPAKOTE) 500 Take 500 mg 0 MG EC tablet by mouth 2 (two) times a day. Active albuterol (PROAIR Inhale 2 0 HFA,PROVENTIL puffs every 6 HFA,VENTOLIN HFA) 90 (six) hours mcg/actuation inhaler as needed for wheezing. 08/14/2018 Discontinued lisinopril Take 1 tablet 30 tablet 0 (PRINIVIL,ZESTRIL) 20 mg (20 mg total) 8 tablet by mouth daily for 30 days. 08/14/2018 Discontinued lisinopril Take 20 mg by 0 (PRINIVIL,ZESTRIL) 10 mg mouth daily. tablet 08/14/2018 Discontinued metFORMIN (GLUCOPHAGE) Take 500 mg 0 500 mg tablet by mouth 2 (two) times a day with meals. 08/08/2018 Discontinued acetaminophen-codeine Take by 0 (TYLENOL WITH CODEINE #3) mouth. 7 300-30 mg per tablet 07/20/2018 divalproex (DEPAKOTE ER) DEPAKOTE ER 0 500 MG 24 hr tablet 500 MG 8 [id number] 10/18/2017 chlordiazePOXIDE Take 1 21 capsule 0 (LIBRIUM) 25 MG capsule capsule (25 8 mg total) by mouth 3 (three) times a day as needed for anxiety for up to 7 days. 08/08/2018 Discontinued ondansetron ODT (ZOFRAN Take 1 tablet 15 tablet 0 ODT) 4 MG disintegrating (4 mg total) 8 tablet by mouth every 8 (eight) hours as needed for vomiting for up to 15 doses. 11/28/2017 chlordiazePOXIDE Take 1 30 capsule 0 (LIBRIUM) 25 MG capsule capsule (25 8 mg total) by mouth 3 (three) times a day as needed for anxiety for up to 7 days. 02/23/2018 clindamycin (CLEOCIN) 150 Take 2 56 capsule 0 MG capsule capsules (300 8 mg total) by mouth 4 (four) times a day for 7 days. 08/05/2018 naproxen (NAPROSYN) 375 Take 1 tablet 20 tablet 0 MG tablet (375 mg 9 total) by mouth 2 (two) times a day with meals for 10 days. 08/19/2018 Discontinued ibuprofen (ADVIL,MOTRIN) Take 1 tablet 40 tablet 0 600 MG tablet (600 mg 9 total) by mouth every 6 (six) hours as needed for mild pain for up to 30 days. 08/19/2018 Discontinued buPROPion XL (WELLBUTRIN Take 150 mg 0 XL) 150 MG 24 hr tablet by mouth daily. 08/14/2018 Discontinued ibuprofen (ADVIL,MOTRIN) Take 1 tablet 30 tablet 0 600 MG tablet (600 mg 9 total) by mouth every 6 (six) hours as needed for mild pain for up to 30 doses. 08/19/2018 Discontinued acetaminophen-codeine Take 1-2 5 tablet 0 (TYLENOL WITH CODEINE #3) tablets by 9 300-30 mg per tablet mouth every 6 (six) hours as needed for moderate pain for up to 10 days. 08/19/2018 Discontinued lisinopril LISINOPRIL 20 0 (PRINIVIL,ZESTRIL) 20 mg MG TABS 8 tablet 09/21/2018 metFORMIN (GLUCOPHAGE) METFORMIN HCL 0 500 mg tablet 500 MG TABS 8 08/19/2018 Discontinued acetaminophen-codeine Take 1-2 15 tablet 0 (TYLENOL WITH CODEINE #3) tablets by 9 300-30 mg per tablet mouth every 6 (six) hours as needed for mild pain for up to 5 days. 09/18/2018 atorvastatin (LIPITOR) 80 Take 1 tablet 30 tablet 0 MG tablet (80 mg total) 9 by mouth nightly for 30 days. 08/21/2018 chlordiazePOXIDE 25 mg tid x 1 6 capsule 0 (LIBRIUM) 25 MG capsule day then bid 9 x 1 day then qd x 1 day 09/18/2018 OLANZapine zydis Take 1 tablet 30 tablet 0 (ZyPREXA) 5 MG (5 mg total) 9 disintegrating tablet by mouth every 8 (eight) hours as needed (agitation) for up to 30 days. 09/01/2018 traMADol (ULTRAM) 50 mg Take 1 tablet 12 tablet 0 tablet (50 mg total) 9 by mouth every 6 (six) hours as needed for moderate pain for up to 3 days. Active Problems Problem Noted Date Tear of deltoid ligament of ankle, left, initial encounter 08/08/2018 Alcohol withdrawal seizure without complication 09/17/2017 Alcohol withdrawal delirium 08/29/2017 Alcohol withdrawal 06/05/2017 Alcohol withdrawal syndrome with complication 05/30/2017 COPD (chronic obstructive pulmonary disease) 05/30/2017 Diabetes mellitus 05/30/2017 Hepatitis C 05/30/2017 Disease of thyroid gland 05/30/2017 Hypertension 05/30/2017 Balanitis 05/30/2017 Ventral incisional hernia 08/18/2016 Resolved Problems Problem Noted Date Resolved Date Isopropyl alcohol poisoning 08/17/2018 08/19/2018 Encounters Care Team Description Date Type Specialty 09/05/2018 Emergency Emergency Medicine - 09/06/2018 Micheal Taylor MD Hand senior system operator poisoning, accidental or unintentional, initial encounter (Primary Dx) 09/05/2018 Emergency Emergency Medicine Micheal Kirkland MD Chronic pain of left ankle (Primary Dx) 09/05/2018 Emergency Emergency Medicine Isaias Rodrigues Jr., MD Alcoholic intoxication without complication (HCC) (Primary Dx) 08/31/2018 Emergency Emergency Medicine Ever Alaniz MD Left ankle pain, unspecified chronicity (Primary Dx) 08/29/2018 Emergency Emergency Medicine Henrietta Garcia, FOUZIA 08/18/2018 [facility] Micheal Kirkland MD Roberts, DO Jewel Mohamud Tanseem Hamad Mohamed A, MD Bavare, Aliyah Dumas MD Isopropyl alcohol poisoning (Primary Dx); Altered mental status, unspecified altered mental status type; Chronic alcohol abuse; Chronic fracture 08/17/2018 [facility] Internal Medicine - Encounter 08/19/2018 Rajendra Ricketts MD Alcoholic intoxication with complication (HCC) (Primary Dx) 08/16/2018 Emergency Emergency Medicine Micheal Kirkland MD Chronic foot pain, left (Primary Dx); Malingering 08/16/2018 Emergency Emergency Medicine Roger Luis MD Left foot pain (Primary Dx) 08/14/2018 Emergency Emergency Medicine Jesus Laguerre MD Left foot pain (Primary Dx) 08/14/2018 Emergency Emergency Medicine 08/14/2018 Travel Ngoc Bates DO Closed fracture of left ankle, sequela (Primary Dx) 08/08/2018 Emergency Emergency Medicine Micheal Kirkland MD Bokhari, MD Karol Llanes Mai Abdelmoneim E.S, MD Tear of deltoid ligament of ankle, left, initial encounter (Primary Dx); Closed nondisplaced spiral fracture of shaft of left fibula, sequela 08/07/2018 Emergency Emergency Medicine - 08/08/2018 08/07/2018 Emergency Emergency Medicine 08/07/2018 Travel Mike Castro MD Alcoholic intoxication without complication (HCC) (Primary Dx) 08/06/2018 Emergency Emergency Medicine Ngoc Bates DO Alcoholic intoxication without complication (HCC) (Primary Dx) 08/06/2018 Emergency Emergency Medicine Jesus Laguerre MD Alcohol abuse (Primary Dx) 08/05/2018 Emergency Emergency Medicine - 08/06/2018 Dominga Case MD Chronic pain of left ankle (Primary Dx) 08/05/2018 Emergency Emergency Medicine Ngoc Bates DO Alcohol intoxication with delirium (HCC) (Primary Dx) 07/28/2018 Emergency Emergency Medicine 07/28/2018 Travel Donald Herring MD Chronic pain of left ankle (Primary Dx) 07/27/2018 Emergency Emergency Medicine Micheal Taylor MD Alcoholic intoxication with complication (HCC) (Primary Dx) 07/26/2018 Emergency Emergency Medicine - 07/27/2018 Archie Gage MD Acute left ankle pain (Primary Dx) 07/26/2018 Emergency Emergency Medicine Archie Gage MD Acute alcoholic intoxication with complication (HCC) (Primary Dx) 07/26/2018 Emergency Emergency Medicine Donald Herring MD Alcoholic intoxication without complication (HCC) (Primary Dx) 07/06/2018 Emergency Emergency Medicine 07/06/2018 Travel John Aquino DO Injury of head, initial encounter (Primary Dx); Laceration of scalp, initial encounter 06/05/2018 Emergency Emergency Medicine Archie Gage MD Facial contusion, initial encounter (Primary Dx); Facial abrasion, initial encounter; Acute alcoholic intoxication without complication (HCC) 05/18/2018 Emergency Emergency Medicine 05/18/2018 Travel Ngoc Bates DO Alcohol intoxication with delirium (HCC) (Primary Dx) 02/22/2018 Emergency Emergency Medicine 02/22/2018 Travel Jesus Laguerre MD Alcoholic intoxication with complication (HCC) (Primary Dx); Cellulitis of finger of right hand; Non-traumatic rhabdomyolysis 02/16/2018 Emergency Emergency Medicine Jesus Laguerre MD Altered mental status, unspecified altered mental status type (Primary Dx); Alcoholic intoxication without complication (HCC) 02/15/2018 Emergency Emergency Medicine Donald Herring MD Alcoholic intoxication without complication (HCC) (Primary Dx); Depression, unspecified depression type; Finger dislocation, subsequent encounter; Closed nondisplaced fracture of proximal phalanx of right little finger, initial encounter 01/01/2018 Emergency Emergency Medicine José Collado MD 01/01/2018 Transcribe Radiology Orders 01/01/2018 Travel Dominga Case MD Closed fracture subluxation of finger, initial encounter (Primary Dx) 11/27/2017 Emergency Emergency Medicine Jesus Laguerre MD Fall, initial encounter (Primary Dx); Closed head injury, initial encounter; Shoulder pain, unspecified chronicity, unspecified laterality 11/24/2017 Emergency Emergency Medicine Jesus Laguerre MD Closed head injury, initial encounter (Primary Dx); Facial laceration, initial encounter 11/22/2017 Emergency Emergency Medicine Wai Wallace MD Alcoholic intoxication with complication (HCC) (Primary Dx); Dehydration 11/21/2017 Emergency Emergency Medicine John Aquino, DO Drug withdrawal seizure without complication (Primary Dx) 10/11/2017 Emergency Emergency Medicine after 09/27/2017 Immunizations Name Dates Previously Given Next Due Tdap 05/18/2018, 07/27/2017, 07/12/2017, 06/27/2017, 11/19/2016 Family History Medical History Relation Name Comments No Known Problems Brother No Known Problems Cousin No Known Problems Daughter No Known Problems Father No Known Problems Maternal Grandfather No Known Problems Maternal Grandmother No Known Problems Mother No Known Problems Other No Known Problems Paternal Grandfather No Known Problems Paternal Grandmother No Known Problems Sister No Known Problems Son Asthma Neg Hx Diabetes Neg Hx Heart failure Neg Hx Hyperlipidemia Neg Hx Hypertension Neg Hx Migraines Neg Hx Osteoarthritis Neg Hx Rashes / Skin problems Neg Hx Rheum arthritis Neg Hx Seizures Neg Hx Stroke Neg Hx Thyroid disease Neg Hx Relation Name Status Comments Brother Cousin Daughter Father Maternal Grandfather Maternal Grandmother Mother Other Paternal Grandfather Paternal Grandmother Sister Son Social History Date Tobacco Use Types Packs/Day Years Used Current Every Day Smoker Cigarettes 1 10 Smokeless Tobacco: Never Used Tobacco Cessation: Ready to Quit: No Alcohol Use Drinks/Week oz/Week Comments Yes yesterday; Sex Assigned at Date Recorded Not on file Industry Job Start Date Occupation Not on file Not on file Not on file Travel End Travel History Travel Start No recent travel history available. Last Filed Vital Signs Time Taken Vital Sign Reading 09/05/2018 6:00 PM CDT Blood Pressure 140/68 09/05/2018 6:00 PM CDT Pulse 84 09/05/2018 3:28 PM CDT Temperature 36.5 C (97.7 F) 09/05/2018 6:00 PM CDT Respiratory Rate 18 09/05/2018 6:00 PM CDT Oxygen Saturation 97% - Inhaled Oxygen - Concentration 09/05/2018 3:27 PM CDT Weight 90.7 kg (200 lb) 09/05/2018 3:27 PM CDT Height 162.6 cm (5' 4") 09/05/2018 3:27 PM CDT Body Mass Index 34.33 Plan of Treatment Health Maintenance Due Date Last Done Comments DIABETIC RETINAL EYE EXAM 1980 DIABETIC FOOT EXAM 1990 INFLUENZA VACCINE 09/18/2018 Procedures Comments Procedure Name Priority Date/Time Associated Diagnosis ECG 12-LEAD STAT 09/05/2018 5:20 PM CDT ESTIMATED GFR STAT 09/05/2018 4:09 PM CDT THYROID STIMULATING STAT 09/05/2018 HORMONE 4:09 PM CDT SALICYLATE LEVEL STAT 09/05/2018 4:09 PM CDT ACETAMINOPHEN LEVEL STAT 09/05/2018 4:09 PM CDT CREATINE KINASE, TOTAL STAT 09/05/2018 (CPK) 4:09 PM CDT ALCOHOL LEVEL, BLOOD STAT 09/05/2018 4:09 PM CDT VENOUS BLOOD GAS STAT 09/05/2018 4:09 PM CDT HEPATIC FUNCTION PANEL STAT 09/05/2018 4:09 PM CDT BASIC METABOLIC PANEL STAT 09/05/2018 4:09 PM CDT HC COMPLETE BLD COUNT STAT 09/05/2018 W/AUTO DIFF 4:09 PM CDT XR ANKLE 3+ VW LEFT STAT 08/29/2018 4:28 PM CDT ALCOHOL LEVEL, BLOOD STAT 08/29/2018 4:20 PM CDT ESTIMATED GFR STAT 08/29/2018 4:20 PM CDT BASIC METABOLIC PANEL STAT 08/29/2018 4:20 PM CDT HC COMPLETE BLD COUNT STAT 08/29/2018 W/AUTO DIFF 4:20 PM CDT POC GLUCOSE Routine 08/19/2018 10:58 AM CDT ESTIMATED GFR Routine 08/19/2018 7:02 AM CDT PHOSPHORUS LEVEL Routine 08/19/2018 7:02 AM CDT MAGNESIUM LEVEL Routine 08/19/2018 7:02 AM CDT HC COMPLETE BLD COUNT Routine 08/19/2018 W/AUTO DIFF 7:02 AM CDT BASIC METABOLIC PANEL Routine 08/19/2018 7:02 AM CDT POC GLUCOSE Routine 08/19/2018 6:21 AM CDT POC GLUCOSE Routine 08/18/2018 8:41 PM CDT POC GLUCOSE Routine 08/18/2018 4:17 PM CDT LINE/DRAIN REMOVAL Routine 08/18/2018 Isopropyl alcohol 3:19 PM CDT poisoning XR CHEST 1 VW PORTABLE Routine 08/18/2018 6:41 AM CDT OSMOLALITY, SERUM Routine 08/18/2018 4:07 AM CDT ESTIMATED GFR Routine 08/18/2018 4:07 AM CDT HC COMPLETE BLD COUNT Routine 08/18/2018 W/AUTO DIFF 4:07 AM CDT BASIC METABOLIC PANEL Routine 08/18/2018 4:07 AM CDT ARTERIAL BLOOD GAS Routine 08/18/2018 3:04 AM CDT POC GLUCOSE Routine 08/18/2018 12:48 AM CDT POC GLUCOSE Routine 08/17/2018 9:37 PM CDT POC GLUCOSE Routine 08/17/2018 5:47 PM CDT URINE DRUGS OF ABUSE STAT 08/17/2018 SCREEN 2:45 PM CDT ARTERIAL BLOOD GAS STAT 08/17/2018 2:29 PM CDT POC GLUCOSE Routine 08/17/2018 12:39 PM CDT ESTIMATED GFR STAT 08/17/2018 12:02 PM CDT OSMOLALITY, SERUM STAT 08/17/2018 12:02 PM CDT COMPREHENSIVE METABOLIC STAT 08/17/2018 PANEL 12:02 PM CDT ALCOHOL LEVEL, BLOOD STAT 08/17/2018 12:02 PM CDT VALPROIC ACID LEVEL Routine 08/17/2018 12:02 PM CDT XR ABDOMEN 1 VW Routine 08/17/2018 11:40 AM CDT XR CHEST 1 VW PORTABLE Routine 08/17/2018 11:39 AM CDT VENOUS BLOOD GAS STAT 08/17/2018 11:34 AM CDT ARTERIAL BLOOD GAS Routine 08/17/2018 11:27 AM CDT HEMODIALYSIS CATHETER Routine 08/17/2018 Isopropyl alcohol PLACEMENT 11:21 AM CDT poisoning IN INSERT Routine 08/17/2018 Isopropyl alcohol CATH,ART,PERCUT,SHORTTERM 11:03 AM CDT poisoning GRAM STAIN STAT 08/17/2018 10:33 AM CDT URINE CULTURE STAT 08/17/2018 10:33 AM CDT LIPID PANEL STAT 08/17/2018 9:55 AM CDT PHOSPHORUS LEVEL STAT 08/17/2018 9:55 AM CDT MAGNESIUM LEVEL STAT 08/17/2018 9:55 AM CDT ESTIMATED GFR STAT 08/17/2018 9:55 AM CDT COMPREHENSIVE METABOLIC STAT 08/17/2018 PANEL 9:55 AM CDT LIPID PANEL Routine 08/17/2018 9:55 AM CDT HEMOGLOBIN A1C Routine 08/17/2018 9:55 AM CDT VENOUS BLOOD GAS STAT 08/17/2018 9:55 AM CDT OSMOLALITY, SERUM STAT 08/17/2018 9:55 AM CDT LACTIC ACID LEVEL, SEPSIS Timed 08/17/2018 - NOW AND REPEAT 2X EVERY 9:55 AM CDT 3 HOURS ARTERIAL BLOOD GAS Routine 08/17/2018 7:49 AM CDT POC GLUCOSE Routine 08/17/2018 7:08 AM CDT POC GLUCOSE Routine 08/17/2018 6:12 AM CDT URINALYSIS SCREEN AND STAT 08/17/2018 MICROSCOPY, WITH REFLEX 5:54 AM CDT TO CULTURE ECG ED PRELIMINARY Routine 08/17/2018 INTERPRETATION 5:41 AM CDT INTUBATION Routine 08/17/2018 5:41 AM CDT IN CRITICAL CARE, ADDL 30 Routine 08/17/2018 MIN 5:41 AM CDT IN CRITICAL CARE, E/M Routine 08/17/2018 30-74 MINUTES 5:[address] HEAD WO CONTRAST STAT 08/17/2018 5:26 AM CDT ECG 12-LEAD STAT 08/17/2018 5:06 AM CDT PARTIAL THROMBOPLASTIN STAT 08/17/2018 TIME (PTT) 5:00 AM CDT PROTHROMBIN TIME WITH INR STAT 08/17/2018 5:00 AM CDT ESTIMATED GFR STAT 08/17/2018 5:00 AM CDT CREATINE KINASE, TOTAL STAT 08/17/2018 (CPK) 5:00 AM CDT LIPASE LEVEL STAT 08/17/2018 5:00 AM CDT LACTIC ACID LEVEL, SEPSIS STAT 08/17/2018 - NOW AND REPEAT 2X EVERY 5:00 AM CDT 3 HOURS MAGNESIUM LEVEL STAT 08/17/2018 5:00 AM CDT PHOSPHORUS LEVEL STAT 08/17/2018 5:00 AM CDT COMPREHENSIVE METABOLIC STAT 08/17/2018 PANEL 5:00 AM CDT HC COMPLETE BLD COUNT STAT 08/17/2018 W/AUTO DIFF 5:00 AM CDT ALCOHOL LEVEL, BLOOD Routine 08/17/2018 5:00 AM CDT METHANOL LEVEL Routine 08/17/2018 5:[address] CERVICAL SPINE WO STAT 08/16/2018 CONTRAST 6:[address] MAXILLOFACIAL WO STAT 08/16/2018 CONTRAST 6:[address] HEAD WO CONTRAST STAT 08/16/2018 6:16 PM CDT ECG ED PRELIMINARY Routine 08/16/2018 INTERPRETATION 5:23 PM CDT ESTIMATED GFR STAT 08/16/2018 4:59 PM CDT ALCOHOL LEVEL, BLOOD STAT 08/16/2018 4:59 PM CDT TROPONIN STAT 08/16/2018 4:59 PM CDT CREATINE KINASE, TOTAL STAT 08/16/2018 (CPK) 4:59 PM CDT LIPASE LEVEL STAT 08/16/2018 4:59 PM CDT PHOSPHORUS LEVEL STAT 08/16/2018 4:59 PM CDT MAGNESIUM LEVEL STAT 08/16/2018 4:59 PM CDT COMPREHENSIVE METABOLIC STAT 08/16/2018 PANEL 4:59 PM CDT TYPE AND SCREEN Routine 08/16/2018 4:59 PM CDT HC COMPLETE BLD COUNT STAT 08/16/2018 W/AUTO DIFF 4:59 PM CDT ECG 12-LEAD STAT 08/16/2018 4:35 PM CDT XR ANKLE 3+ VW LEFT STAT 08/16/2018 5:23 AM CDT XR FOOT 2 VW LEFT STAT 08/14/2018 10:07 AM CDT XR ANKLE 2 VW LEFT STAT 08/14/2018 9:49 AM CDT THYROID STIMULATING Routine 08/07/2018 HORMONE 11:00 PM CDT ESTIMATED GFR STAT 08/07/2018 11:00 PM CDT ALCOHOL LEVEL, BLOOD STAT 08/07/2018 11:00 PM CDT COMPREHENSIVE METABOLIC STAT 08/07/2018 PANEL 11:00 PM CDT HC COMPLETE BLD COUNT STAT 08/07/2018 W/AUTO DIFF 11:00 PM CDT XR ANKLE 3+ VW LEFT STAT 08/07/2018 10:55 PM CDT ESTIMATED GFR Routine 08/06/2018 2:19 PM CDT COMPREHENSIVE METABOLIC Routine 08/06/2018 PANEL 2:19 PM CDT HC COMPLETE BLD COUNT Routine 08/06/2018 W/AUTO DIFF 2:19 PM CDT ECG 12-LEAD STAT 08/06/2018 12:28 PM CDT ECG ED PRELIMINARY Routine 08/06/2018 INTERPRETATION 12:22 PM CDT POC GLUCOSE Routine 08/06/2018 12:14 PM CDT ALCOHOL LEVEL, BLOOD Timed 08/06/2018 5:12 AM CDT ALCOHOL LEVEL, BLOOD Timed 08/06/2018 1:40 AM CDT URINE DRUGS OF ABUSE STAT 08/05/2018 SCREEN 7:44 PM CDT URINALYSIS SCREEN AND STAT 08/05/2018 MICROSCOPY, WITH REFLEX 7:44 PM CDT TO CULTURE URINE CULTURE STAT 08/05/2018 7:44 PM CDT ECG 12-LEAD STAT 08/05/2018 7:23 PM CDT ESTIMATED GFR STAT 08/05/2018 7:03 PM CDT ESTIMATED GFR STAT 08/05/2018 7:03 PM CDT SALICYLATE LEVEL STAT 08/05/2018 7:03 PM CDT CARBAMAZEPINE LEVEL STAT 08/05/2018 7:03 PM CDT ACETAMINOPHEN LEVEL STAT 08/05/2018 7:03 PM CDT CREATINE KINASE, TOTAL STAT 08/05/2018 (CPK) 7:03 PM CDT THYROID STIMULATING STAT 08/05/2018 HORMONE 7:03 PM CDT T4, FREE STAT 08/05/2018 7:03 PM CDT COMPREHENSIVE METABOLIC STAT 08/05/2018 PANEL 7:03 PM CDT HC COMPLETE BLD COUNT STAT 08/05/2018 W/AUTO DIFF 7:03 PM CDT ALCOHOL LEVEL, BLOOD STAT 08/05/2018 7:03 PM CDT HC COMPLETE BLD COUNT STAT 08/05/2018 W/AUTO DIFF 7:03 PM CDT COMPREHENSIVE METABOLIC STAT 08/05/2018 PANEL 7:[address] HEAD WO CONTRAST STAT 08/05/2018 6:46 PM CDT ECG ED PRELIMINARY Routine 08/05/2018 INTERPRETATION 6:12 PM CDT XR FOOT 3+ VW LEFT STAT 07/27/2018 4:34 AM CDT XR ANKLE 3+ VW LEFT STAT 07/27/2018 4:34 AM CDT ESTIMATED GFR STAT 07/27/2018 12:25 AM CDT ALCOHOL LEVEL, BLOOD STAT 07/27/2018 12:25 AM CDT BASIC METABOLIC PANEL STAT 07/27/2018 12:25 AM CDT HC COMPLETE BLD COUNT STAT 07/27/2018 W/AUTO DIFF 12:[address] HEAD WO CONTRAST STAT 07/26/2018 5:08 PM CDT XR CHEST 1 VW PORTABLE STAT 07/26/2018 4:23 PM CDT ESTIMATED GFR STAT 07/26/2018 4:01 PM CDT ALCOHOL LEVEL, BLOOD STAT 07/26/2018 4:01 PM CDT COMPREHENSIVE METABOLIC STAT 07/26/2018 PANEL 4:01 PM CDT PROTHROMBIN TIME WITH INR STAT 07/26/2018 4:01 PM CDT PARTIAL THROMBOPLASTIN STAT 07/26/2018 TIME (PTT) 4:01 PM CDT HC COMPLETE BLD COUNT STAT 07/26/2018 W/AUTO DIFF 4:01 PM CDT ECG ED PRELIMINARY Routine 07/26/2018 INTERPRETATION 3:51 PM CDT ECG 12-LEAD STAT 07/26/2018 3:28 PM CDT ALCOHOL LEVEL, BLOOD Timed 07/06/2018 8:20 AM CDT URINE DRUGS OF ABUSE STAT 07/06/2018 SCREEN 4:20 AM CDT URINALYSIS SCREEN AND Routine 07/06/2018 MICROSCOPY, WITH REFLEX 4:20 AM CDT TO CULTURE URINE CULTURE Routine 07/06/2018 4:[address] HEAD WO CONTRAST STAT 07/06/2018 3:53 AM CDT ESTIMATED GFR STAT 07/06/2018 1:26 AM CDT ACETAMINOPHEN LEVEL STAT 07/06/2018 1:26 AM CDT SALICYLATE LEVEL STAT 07/06/2018 1:26 AM CDT ALCOHOL LEVEL, BLOOD STAT 07/06/2018 1:26 AM CDT HC COMPLETE BLD COUNT STAT 07/06/2018 W/AUTO DIFF 1:26 AM CDT BASIC METABOLIC PANEL STAT 07/06/2018 1:[address] HEAD WO CONTRAST STAT 06/05/2018 7:48 PM CDT IN RESUPERF WND FACE <2.5 Routine 06/05/2018 CM 7:[address] CERVICAL SPINE WO STAT 05/18/2018 CONTRAST 1:[address] MAXILLOFACIAL WO STAT 05/18/2018 CONTRAST 1:[address] HEAD WO CONTRAST STAT 05/18/2018 1:07 PM CDT XR CHEST 1 VW PORTABLE STAT 05/18/2018 12:22 PM CDT XR HAND 3+ VW RIGHT STAT 05/18/2018 12:21 PM CDT XR HAND 3+ VW LEFT STAT 05/18/2018 12:21 PM CDT ECG 12-LEAD STAT 05/18/2018 11:58 AM CDT ALCOHOL LEVEL, BLOOD STAT 05/18/2018 11:55 AM CDT ESTIMATED GFR STAT 05/18/2018 11:55 AM CDT COMPREHENSIVE METABOLIC STAT 05/18/2018 PANEL 11:55 AM CDT PARTIAL THROMBOPLASTIN STAT 05/18/2018 TIME (PTT) 11:55 AM CDT PROTHROMBIN TIME WITH INR STAT 05/18/2018 11:55 AM CDT HC COMPLETE BLD COUNT STAT 05/18/2018 W/AUTO DIFF 11:55 AM CDT ECG ED PRELIMINARY Routine 05/18/2018 INTERPRETATION 11:[address] HEAD WO CONTRAST STAT 02/22/2018 7:24 AM FINISHED CARPET INSPECTOR ESTIMATED GFR STAT 02/22/2018 4:53 AM FINISHED CARPET INSPECTOR ALCOHOL LEVEL, BLOOD STAT 02/22/2018 4:53 AM FINISHED CARPET INSPECTOR TROPONIN STAT 02/22/2018 4:53 AM FINISHED CARPET INSPECTOR MAGNESIUM LEVEL STAT 02/22/2018 4:53 AM FINISHED CARPET INSPECTOR LACTIC ACID LEVEL, SEPSIS STAT 02/22/2018 - NOW AND REPEAT 2X EVERY 4:53 AM FINISHED CARPET INSPECTOR 3 HOURS HC COMPLETE BLD COUNT STAT 02/22/2018 W/AUTO DIFF 4:53 AM FINISHED CARPET INSPECTOR BASIC METABOLIC PANEL STAT 02/22/2018 4:53 AM FINISHED CARPET INSPECTOR POC GLUCOSE Routine 02/22/2018 3:34 AM FINISHED CARPET INSPECTOR CREATINE KINASE, TOTAL STAT 02/16/2018 (CPK) 2:08 AM FINISHED CARPET INSPECTOR XR HAND 3+ VW RIGHT STAT 02/16/2018 1:18 AM FINISHED CARPET INSPECTOR B NATRIURETIC PEPTIDE STAT 02/15/2018 8:10 PM FINISHED CARPET INSPECTOR CREATINE KINASE, TOTAL STAT 02/15/2018 (CPK) 8:10 PM FINISHED CARPET INSPECTOR TROPONIN STAT 02/15/2018 8:10 PM FINISHED CARPET INSPECTOR ESTIMATED GFR STAT 02/15/2018 8:10 PM FINISHED CARPET INSPECTOR VALPROIC ACID LEVEL STAT 02/15/2018 8:10 PM FINISHED CARPET INSPECTOR LITHIUM LEVEL STAT 02/15/2018 8:10 PM FINISHED CARPET INSPECTOR ACETAMINOPHEN LEVEL STAT 02/15/2018 8:10 PM FINISHED CARPET INSPECTOR ALCOHOL LEVEL, BLOOD STAT 02/15/2018 8:10 PM FINISHED CARPET INSPECTOR HC COMPLETE BLD COUNT STAT 02/15/2018 W/AUTO DIFF 8:10 PM FINISHED CARPET INSPECTOR THYROID STIMULATING STAT 02/15/2018 HORMONE 8:10 PM FINISHED CARPET INSPECTOR T4, FREE STAT 02/15/2018 8:10 PM FINISHED CARPET INSPECTOR COMPREHENSIVE METABOLIC STAT 02/15/2018 PANEL 8:10 PM FINISHED CARPET INSPECTOR CT HEAD WO CONTRAST STAT 02/15/2018 7:46 PM FINISHED CARPET INSPECTOR ALCOHOL LEVEL, BLOOD Timed 01/01/2018 10:15 AM FINISHED CARPET INSPECTOR URINE DRUGS OF ABUSE STAT 01/01/2018 SCREEN 3:20 AM FINISHED CARPET INSPECTOR URINALYSIS SCREEN AND STAT 01/01/2018 MICROSCOPY, WITH REFLEX 3:20 AM FINISHED CARPET INSPECTOR TO CULTURE ESTIMATED GFR STAT 01/01/2018 3:06 AM FINISHED CARPET INSPECTOR ACETAMINOPHEN LEVEL STAT 01/01/2018 3:06 AM FINISHED CARPET INSPECTOR SALICYLATE LEVEL STAT 01/01/2018 3:06 AM FINISHED CARPET INSPECTOR HCG QUALITATIVE, SERUM STAT 01/01/2018 SCREEN 3:06 AM FINISHED CARPET INSPECTOR BETA HYDROXYBUTYRATE STAT 01/01/2018 3:06 AM FINISHED CARPET INSPECTOR ALCOHOL LEVEL, BLOOD STAT 01/01/2018 3:06 AM FINISHED CARPET INSPECTOR TROPONIN STAT 01/01/2018 3:06 AM FINISHED CARPET INSPECTOR CREATINE KINASE, TOTAL STAT 01/01/2018 (CPK) 3:06 AM FINISHED CARPET INSPECTOR HEPATIC FUNCTION PANEL STAT 01/01/2018 3:06 AM FINISHED CARPET INSPECTOR MAGNESIUM LEVEL STAT 01/01/2018 3:06 AM FINISHED CARPET INSPECTOR PARTIAL THROMBOPLASTIN STAT 01/01/2018 TIME (PTT) 3:06 AM FINISHED CARPET INSPECTOR PROTHROMBIN TIME WITH INR STAT 01/01/2018 3:06 AM FINISHED CARPET INSPECTOR HC COMPLETE BLD COUNT STAT 01/01/2018 W/AUTO DIFF 3:06 AM FINISHED CARPET INSPECTOR BASIC METABOLIC PANEL STAT 01/01/2018 3:06 AM FINISHED CARPET INSPECTOR XR HAND 3+ VW RIGHT STAT 01/01/2018 3:05 AM FINISHED CARPET INSPECTOR VENOUS BLOOD GAS STAT 01/01/2018 3:04 AM FINISHED CARPET INSPECTOR ECG 12-LEAD STAT 01/01/2018 2:51 AM FINISHED CARPET INSPECTOR ECG ED PRELIMINARY Routine 01/01/2018 INTERPRETATION 2:35 AM FINISHED CARPET INSPECTOR XR HAND 3+ VW RIGHT STAT 11/27/2017 3:[address] MAXILLOFACIAL WO STAT 11/27/2017 CONTRAST 3:[address] HEAD WO CONTRAST STAT 11/27/2017 3:[address] HEAD WO CONTRAST STAT 11/24/2017 10:30 PM CDT XR SHOULDER 2+ VW RIGHT STAT 11/24/2017 8:48 PM CDT ESTIMATED GFR STAT 11/21/2017 7:11 AM CDT CREATINE KINASE, TOTAL STAT 11/21/2017 (CPK) 7:11 AM CDT BASIC METABOLIC PANEL STAT 11/21/2017 7:11 AM CDT URINE DRUGS OF ABUSE STAT 11/21/2017 SCREEN 4:36 AM CDT URINALYSIS SCREEN AND STAT 11/21/2017 MICROSCOPY, WITH REFLEX 4:36 AM CDT TO CULTURE CREATINE KINASE, TOTAL STAT 11/21/2017 (CPK) 4:34 AM CDT ESTIMATED GFR STAT 11/21/2017 4:34 AM CDT SALICYLATE LEVEL STAT 11/21/2017 4:34 AM CDT ACETAMINOPHEN LEVEL STAT 11/21/2017 4:34 AM CDT ALCOHOL LEVEL, BLOOD STAT 11/21/2017 4:34 AM CDT THYROID STIMULATING STAT 11/21/2017 HORMONE 4:34 AM CDT BASIC METABOLIC PANEL STAT 11/21/2017 4:34 AM CDT HC COMPLETE BLD COUNT STAT 11/21/2017 W/AUTO DIFF 4:34 AM CDT URINE CULTURE STAT 11/21/2017 4:34 AM CDT ECG 12-LEAD STAT 10/11/2017 7:23 AM CDT HEPATIC FUNCTION PANEL STAT 10/11/2017 7:12 AM CDT TROPONIN STAT 10/11/2017 7:12 AM CDT ALCOHOL LEVEL, BLOOD STAT 10/11/2017 7:12 AM CDT ZZESTIMATED GFR STAT 10/11/2017 7:12 AM CDT LACTIC ACID LEVEL, SEPSIS STAT 10/11/2017 - NOW AND REPEAT 2X EVERY 7:12 AM CDT 3 HOURS CREATINE KINASE, TOTAL STAT 10/11/2017 (CPK) 7:12 AM CDT BASIC METABOLIC PANEL STAT 10/11/2017 7:12 AM CDT HC COMPLETE BLD COUNT STAT 10/11/2017 W/AUTO DIFF 7:12 AM CDT after 09/27/2017 Results * ECG 12 lead (09/05/2018 5:20 PM CDT) Only the most recent of 9 results within the time period is included. Pathologist [facility] Ventricular 98 [facility] MUSE rate Atrial rate 98 [facility] MUSE IN interval 154 [facility] M[facility] QRSD interval 82 [facility] MUSE QT interval 364 [facility] M[facility] QTC interval 464 [facility] M[facility] P axis 1 45 [facility] MUSE QRS axis 1 32 [facility] MUSE T wave axis 36 [facility] MUSE EKG impression Normal sinus rhythm-Normal [facility] MUSE ECG-In automated comparison with ECG of 17-AUG-2018 05:06,-premature ventricular complexes are no longer present-Nonspecific T wave abnormality no longer evident in Lateral leads- Specimen Narrative Performed At Performing Organization Address City/State/Zipcode Phone Number [facility] MUSE [address] [place] [address] * Estimated GFR (09/05/2018 4:09 PM CDT) Only the most recent of 21 results within the time period is included. [facility] Estimated GFR >=90 mL/min/1.73 m2 [place] Comment: JEW [facility] G1 >=90 Normal or high G2 60-89Mildly decreased [id number] Mildly to moderately decreased [id number] Moderately to severely decreased G4 15-29Severely decreased G5 <15Kidney failure The eGFR was calculated using the Chronic Kidney Disease Epidemiology Collaboration (CKD-EPI) equation. Interpretation is based on recommendations of the National Kidney Foundation-Kidney Disease Outcomes Quality Initiative (NKF-KDOQI) published in 2014. Specimen Plasma specimen Performing Organization Address City/State/Zipcode Phone Number [facility] [address] [place] [address] PATHOLOGY AND GENOMIC MEDICINE [facility] [address] * CBC with platelet and differential (09/05/2018 4:09 PM CDT) Only the most recent of 19 results within the time period is included. WBC 11.0 4.2 - 11.0 k/uL [facility] RBC 3.49 (L) 4.04 - 5.86 m/uL [facility] HGB 9.5 (L) 13.0 - 17.3 g/dL [facility] HCT 30.0 (L) 34.0 - 45.0 % [facility] MCV 86.0 80.0 - 98.0 fL [facility] MCH 27.2 27.0 - 34.0 pg [facility] MCHC 31.7 31.5 - 36.5 g/dL [facility] RDW - SD 45.3 37.0 - 51.0 fL [facility] MPV 8.5 7.4 - 10.4 fL [facility] Platelet count 418 (H) 150 - 400 k/uL [facility] Nucleated RBC 0.00 /100 WBC [facility] Neutrophils 61.3 36.0 - 66.0 % [facility] Lymphocytes 22.1 (L) 24.0 - 44.0 % [facility] Monocytes 9.4 (H) 0.0 - 6.0 % [facility] Eosinophils 5.7 0.0 - 6.0 % [facility] Basophils 1.0 0.0 - 1.2 % [facility] Immature 0.5 0.0 - 1.0 % [place] granulocytes [facility] Specimen Blood Performing Organization Address City/[facility]/Zipcode Phone Number [facility] [address] [place] [address] PATHOLOGY AND GENOMIC MEDICINE [facility] [address] * Thyroid stimulating hormone (09/05/2018 4:09 PM CDT) Only the most recent of 5 results within the time period is included. Pathologist [facility] TSH 3.82 0.27 - 4.20 uIU/mL [facility] Specimen Plasma specimen Performing Organization Address City/[facility] Centercode Phone Number [facility] [address] [place] [address] PATHOLOGY AND GENOMIC MEDICINE [facility] [address] [place] [address] * Venous blood gas (09/05/2018 4:09 PM CDT) Only the most recent of 4 results within the time period is included. Pathologist [facility] pH, venous 7.353 7.320 - 7.420 units [facility] pCO2, venous 36.3 (L) 45.0 - 51.0 mmHg [facility] pO2, venous 56.9 (H) 25.0 - 40.0 mmHg [facility] O2 saturation, 85.8 (H) 40.0 - 70.0 % [facility] Base excess, -5.4 (L) -2.0 - 2.0 mEq/L [place] venous [facility] Bicarbonate 20.2 (L) 21.0 - 28.0 mEq/L [facility] O2 content 11.2 VOL% [facility] FiO2, inspired 21.0 % [place] O2% [facility] Carboxyhemoglob 3.1 (H) 0.0 - 1.4 % [place] in Comment: JEW Reference Ranges: [place] Carboxyhemoglobin [facility] Non smoker: 0.0 - 2.0% Smoker: 2.1 - 5.0% Heavy smoker: 5.1 - 9% Methemoglobin 0.5 0.0 - 1.0 % [facility] Hemoglobin, 9.6 (L) 14.0 - 18.0 g/dL [place] blood gas [facility] Specimen Blood Performing Organization Address [facility] Centercode Phone Number [facility] [address] [place] [address] PATHOLOGY AND GENOMIC MEDICINE [facility] [address] * Creatine kinase, total (CPK) (09/05/2018 4:09 PM CDT) Only the most recent of 10 results within the time period is included. Creatine kinase 319 (H) 39 - 308 U/L [facility] Specimen Plasma specimen Performing Organization Address [facility] Centercoaz Phone Number [facility] [address] [place] [address] PATHOLOGY AND GENOMIC MEDICINE [facility] [address] [place] [address] * Alcohol level, blood (09/05/2018 4:09 PM CDT) Only the most recent of 20 results within the time period is included. Alcohol 174.9 mg/dL [place] Comment: [facility] Detected Legal Intoxication in [place] 80 mg/dL (0.08%) Toxic Concentration 200 mg/dL (0.2%) Potentially Fatal 350-500 mg/dL (0.35%-0.5%) Alcohol percent 0.175 % [facility] Specimen Blood Performing Organization Address [facility] Centercode Phone Number [facility] [address] [place] [address] PATHOLOGY AND GENOMIC MEDICINE [facility] [address] * Acetaminophen level (09/05/2018 4:09 PM CDT) Only the most recent of 6 results within the time period is included. Acetaminophen <15.3 10.0 - 30.0 ug/mL [place] level Comment: JEW Therapeutic [place] 10-30 HOSPITAL ug/mL Possible Toxicity 150-200 ug/mL Probable Toxicity >200 ug/mL Specimen Blood Performing Organization Address City/[facility]/Zipcode Phone Number [facility] [address] [place] [phone] PATHOLOGY AND GENOMIC MEDICINE [facility] [address] * Salicylate level (09/05/2018 4:09 PM CDT) Only the most recent of 5 results within the time period is included. Pathologist [facility] Salicylate <0.4 (L) 3.0 - 30.0 mg/dL [place] Comment: JEW Therapeutic Range: [place]ERSON 5 - 30 mg/dL HOSPITAL Specimen Blood Performing Organization Address City/[facility] Centercode Phone Number [facility] [address] [place] [address] PATHOLOGY AND GENOMIC MEDICINE [address] * Hepatic function panel (09/05/2018 4:09 PM CDT) Only the most recent of 3 results within the time period is included. [facility] Albumin 3.9 3.5 - 5.0 g/dL [facility] Total bilirubin <0.3 0.2 - 1.2 mg/dL [facility] Bilirubin <0.2 0.0 - 0.4 mg/dL [place] direct [facility] Alkaline 130 (H) 0 - 129 U/L [place] phosphatase [facility] Protein 7.8 6.3 - 8.3 g/dL [facility] ALT 31 5 - 50 U/L [facility] AST 42 10 - 50 U/L [facility] Specimen Plasma specimen Performing Organization Address City/[facility] Centercode Phone Number [facility] [address] [place] [address] PATHOLOGY AND GENOMIC MEDICINE [address] * Basic metabolic panel (09/05/2018 4:09 PM CDT) Only the most recent of 11 results within the time period is included. [facility] Sodium 137 135 - 150 mEq/L [facility] Potassium 4.4 3.5 - 5.0 mEq/L [facility] Chloride 100 98 - 112 mEq/L [facility] CO2 19 (L) 24 - 31 mmol/L [facility] Anion gap 18@ANIO (H) 7 - 15 mEq/L [facility] BUN 11 7 - 18 mg/dL [facility] Creatinine 1.00 0.70 - 1.20 mg/dL [facility] Glucose 129 (H) 65 - 100 mg/dL [facility] Calcium 8.9 8.3 - 10.2 mg/dL [facility] Specimen Plasma specimen Performing Organization Address City/State/Zipcode Phone Number [facility] [address] [facility] [place] [address] PATHOLOGY AND GENOMIC MEDICINE [facility] [address] [facility] [place] [address] HOSPITAL * XR Ankle 3+ Vw Left (08/29/2018 4:28 PM CDT) Only the most recent of 4 results within the time period is included. Specimen Narrative Performed At EXAMINATION:XR ANKLE 3VW LEFT HM RADIANT CLINICAL HISTORY:hx of surgeryankle paintook his splint off COMPARISON:08/16/2018 IMPRESSION: Evidence of hardware failure with fractured syndesmotic screw as noted below. There is a plate and screw fixation along the lateral aspect of the distal fibular shaft and lateral malleolus. A screw extending from the fibula to the tibial plafond has fractured. This is new from prior exam. There is some heterotopic ossification between the distal tibia and fibula. There is soft tissue swelling about the lateral aspect of the ankle. [id number] Procedure Note Hm Interface, Radiology Results Incoming - 08/29/2018 4:43 PM CDT EXAMINATION: XR ANKLE 3 VW LEFT CLINICAL HISTORY: hx of surgery ankle pain took his splint off COMPARISON: 08/16/2018 IMPRESSION: Evidence of hardware failure with fractured syndesmotic screw as noted below. There is a plate and screw fixation along the lateral aspect of the distal fibular shaft and lateral malleolus. A screw extending from the fibula to the tibial plafond has fractured. This is new from prior exam. There is some heterotopic ossification between the distal tibia and fibula. There is soft tissue swelling about the lateral aspect of the ankle. [id number] Performing Organization Address City/State/Zipcode Phone Number [facility] [address] [place] [address] * POC glucose (08/19/2018 10:58 AM CDT) Only the most recent of 12 results within the time period is included. POC glucose 163 (H) 65 - 100 mg/dL [place] Comment: JEW Meter ID: [id number] [place] Real Estate Closing Coordinator: Rosamaria [facility] Specimen Performing Organization Address City/State/Zipcode Phone Number [facility] [address] [place] [address] PATHOLOGY AND [facility] MEDICINE [address] * Phosphorus level (08/19/2018 7:02 AM CDT) Only the most recent of 4 results within the time period is included. Phosphorus 5.5 (H) 2.4 - 4.5 mg/dL [facility] Specimen Plasma specimen Performing Organization Address City/[facility]ercode Phone Number [facility] [address] [place] [address] PATHOLOGY [address] * Magnesium level (08/19/2018 7:02 AM CDT) Only the most recent of 6 results within the time period is included. Magnesium 2.00 1.60 - 2.60 mg/dL [facility] Specimen Plasma specimen Performing Organization Address City/[facility]ercode Phone Number [facility] [address] [place] [address] PATHOLOGY AND [facility] MEDICINE [address] * Line/Drain Removal (08/18/2018 3:19 PM CDT) Narrative Performed At Marian Vieyra NP 08/18/20183:28 PM Line/Drain Removal Date/Time: 08/18/2018 3:19 PM Performed by: Marian Vieyra NP Authorized by: Marian Vieyra NP Pre-procedure details: Line or drain removed:Other (Trialysis Catheter 13 fr) Patient position:Supine Removal procedure: Number of people performing procedure:2 Catheter intact?:Yes Insertion site:No redness, no swelling and no drainage Breath held: Yes Valsalva performed: performed Pressure applied to site?: Yes Dressing applied::4x4 sterile gauze, occlusive and transparent dressing Estimated blood loss (mL):1 Specimen(s):None Complications:None Attending physician:Jewel Patient tolerance of procedure: Patient tolerated the procedure well with no immediate complications Comments: Undersigned GEOGRAPHIC INFORMATION SYSTEMS DIRECTOR performed catheter removal.Bedside RN maintained direct pressure, and subsequently applied occlusive dressing. * XR Chest 1 Vw Portable (08/18/2018 6:41 AM CDT) Only the most recent of 4 results within the time period is included. Specimen Narrative Performed At EXAMINATION:XR CHEST 1 VW PORTABLE RADI[facility] CLINICAL HISTORY:ICU ptstable with no clinical status changes, patient on ventilatorresp failure COMPARISON:August 17 IMPRESSION: Pulmonary vascular congestion is decreased from prior The heart remains enlarged. Small bilateral pleural effusions are present and unchanged Mild degenerative changes in the bony structures. Endotracheal tube and nasogastric tube have been removed, other support lines unchanged [id number] Procedure Note Hm Interface, Radiology Results Incoming - 08/18/2018 6:57 AM CDT EXAMINATION: XR CHEST 1 VW PORTABLE CLINICAL HISTORY: ICU pt stable with no clinical status changes, patient on ventilator resp failure COMPARISON: August 17 IMPRESSION: Pulmonary vascular congestion is decreased from prior The heart remains enlarged. Small bilateral pleural effusions are present and unchanged Mild degenerative changes in the bony structures. Endotracheal tube and nasogastric tube have been removed, other support lines unchanged [facility]-[id number] Performing Organization Address City/State/Zipcode Phone Number [facility] [address] [place] [address] * Osmolality, serum (08/18/2018 4:07 AM CDT) Only the most recent of 3 results within the time period is included. Osmolality 312 (H) 275 - 295 mOsm/kg [facility] Specimen Blood Performing Organization Address City/State/Zipcode Phone Number [address] [address] PATHOLOGY AND GENOMIC MEDICINE [facility] [address] * Arterial blood gas (08/18/2018 3:04 AM CDT) Only the most recent of 4 results within the time period is included. Real Estate Closing Coordinator JSXB [facility] Collection site ART LINE [facility] O2 therapy VENT AC [facility] Respiratory 15 bpm [place] rate [facility] Tidal volume 450.0 mL [facility] .PEEP 5 cmH2O [facility] pH, arterial 7.480 (H) 7.350 - 7.450 units [facility] pCO2, arterial 41.5 35.0 - 45.0 mmHg [facility] pO2, arterial 84.8 80.0 - 90.0 mmHg [facility] O2 saturation, 97.3 95.0 - 100.0 % [facility] Base excess, 7.4 mEq/L [facility] Bicarbonate 30.9 (H) 21.0 - 28.0 mEq/L [facility] O2 content 12.4 VOL% [facility] FiO2, inspired 25.0 % [place] O2% [facility] Carboxyhemoglob 1.6 (H) 0.0 - 1.4 % [place] in Comment: JEW Reference Ranges: [facility] Massachusetts[facility]oglobin [facility] Non smoker: 0.0 - 2.0% Smoker: 2.1 - 5.0% Heavy smoker: 5.1 - 9% Methemoglobin 0.4 0.0 - 1.0 % [facility] Hemoglobin, 9.2 (L) 14.0 - 18.0 g/dL [place] blood gas [facility] pO2, A-a 47.4 mmHg [facility] Specimen Blood Performing Organization Address City/State/Zipcode Phone Number [facility] DEPARTMENT OF [address] [place] [phone] PATHOLOGY AND GENOMIC MEDICINE [place] [id number] [address] * Urine drugs of abuse screen (08/17/2018 2:45 PM CDT) Only the most recent of 5 results within the time period is included. Amphetamine Negative [place] screen, urine [facility] Barbiturate Negative [place] screen, urine [facility] Benzodiazepine Positive (A) [place] screen, urine [facility] Cocaine screen, Negative [place] urine [facility] Methadone Negative [place] metabolite JEW (EDDP), urine [facility] Opiates screen, Negative [place] urine [facility] Phencyclidine Negative [place] screen, urine [facility] Cannabinoid Negative [place] screen, urine Comment: JEW Drug screen minimum [place] [facility] Amphetamines 1000 ng/mL Barbiturates 200 ng/mL Benzodiazepines 300 ng/mL Cocaine 300 ng/mL Methadone 300 ng/mL Opiates 300 ng/mL Oxycodone 300 ng/mL Phencyclidine 25 ng/mL Cannabinoids 50 ng/mL Tricyclics 1000 ng/mL Results are from screening tests and should only be used for medical evaluation. Drug testing for legal purposes requires definitive (or confirmatory) testing methods, which are available upon request. Contact the laboratory if definitive testing is required. Specimen Urine Performing Organization Address City/[facility] Centercode Phone Number [facility] [address] [place] [address] PATHOLOGY AND GENOMIC MEDICINE [address] * Valproic acid level (08/17/2018 12:02 PM CDT) Only the most recent of 2 results within the time period is included. Pathologist [facility] Valproic acid <3.1 (L) 50.0 - 100.0 ug/mL [place] Comment: JEW Therapeutic Range: PATERSON 50 - 100 ug/mL HOSPITAL Specimen Blood Performing Organization Address City/State/Zipcode Phone Number [facility] [address] [place] [address] PATHOLOGY AND GENOMIC MEDICINE [facility] [address] * Comprehensive metabolic panel (08/17/2018 12:02 PM CDT) Only the most recent of 11 results within the time period is included. Sodium 144 135 - 150 mEq/L [facility] Potassium 3.8 3.5 - 5.0 mEq/L [facility] Chloride 107 98 - 112 mEq/L [facility] CO2 19 (L) 24 - 31 mmol/L [facility] Anion gap 18@ANIO (H) 7 - 15 mEq/L [facility] BUN 4 (L) 7 - 18 mg/dL [facility] Creatinine 0.60 (L) 0.70 - 1.20 mg/dL [facility] Glucose 136 (H) 65 - 100 mg/dL [facility] Calcium 8.3 8.3 - 10.2 mg/dL [facility] Protein 7.4 6.3 - 8.3 g/dL [facility] Albumin 3.7 3.5 - 5.0 g/dL [facility] A/G ratio 1.0 0.7 - 3.8 [facility] Alkaline 100 0 - 129 U/L [place] phosphatase [facility] AST 250 (H) 10 - 50 U/L [facility] ALT 91 (H) 5 - 50 U/L [facility] Total bilirubin 0.3 0.2 - 1.2 mg/dL [facility] Specimen Plasma specimen Performing Organization Address City/State/Zipcode Phone Number [facility] [address] [facility] [place] [phone] PATHOLOGY AND GENOMIC MEDICINE [facility] [address] [place] [address] HOSPITAL * XR Abdomen 1 Vw (08/17/2018 11:40 AM CDT) Specimen Narrative Performed At EXAMINATION:XR ABDOMEN 1 VW RADIANT CLINICAL HISTORY:NGT placement COMPARISON:None. IMPRESSION: Nasogastric tube terminates in the body of the stomach There is a nonspecific bowel gas pattern. No free air is identified. Phleboliths are present in the pelvis. Age related changes are present throughout the bony structures without evidence of a suspicious focal lesion. [facility]-[id number] Procedure Note Interface, Radiology Results Incoming - 08/17/2018 11:48 AM CDT EXAMINATION: XR ABDOMEN 1 VW CLINICAL HISTORY: NGT placement COMPARISON: None. IMPRESSION: Nasogastric tube terminates in the body of the stomach There is a nonspecific bowel gas pattern. No free air is identified. Phleboliths are present in the pelvis. Age related changes are present throughout the bony structures without evidence of a suspicious focal lesion. [facility]-[id number] Performing Organization Address City/State/Zipcode Phone Number [facility] [address] [place] [address] * HEMODIALYSIS CATHETER PLACEMENT (08/17/2018 11:21 AM CDT) Narrative Performed At Marian Vieyra NP 08/17/2018 11:38 AM Hemodialysis catheter placement Date/Time: 08/17/2018 10:20 AM Performed by: Marian Vieyra NP Authorized by: Marian Vieyra NP Consent: Consent obtained:Verbal Consent given by:Patient (Pt's mother) Risks discussed:Bleeding, infection, incorrect placement and pneumothorax Justice protocol: Procedure explained and questions answered to patient or proxy's satisfaction: yes Relevant documents present and verified: yes Test results available and properly labeled: yes Imaging studies available: yes Required blood products, implants, devices, and special equipment available: yes Site/side marked: yes Immediately prior to procedure, a time out was called: yes Patient identity confirmed:Anonymous protocol, patient vented/unresponsive Pre-procedure details: Indication:Vascular access for HD Hand hygiene: Hand hygiene performed prior to insertion Sterile barrier technique: All elements of maximal sterile technique followed Skin preparation:2% chlorhexidine Skin preparation agent: Skin preparation agent completely dried prior to procedure Sedation: Sedation Type:Systemic Systemic used::Propofol Anesthesia (see MAR for exact dosages): Anesthesia method:Local infiltration Local anesthetic:Lidocaine 1% w/o epi Procedure details: Procedure supplies:Trialysis Catheter size:13french Catheter Site Laterality:Right Post-procedure details: Post-procedure:Line sutured and dressing applied Patient tolerance of procedure:Tolerated well, no immediate complications * Arterial Line Insertion (08/17/2018 11:03 AM CDT) Narrative Performed At Marian Vieyra NP 08/17/2018 11:10 AM Arterial Line Insertion Date/Time: 08/17/2018 9:45 AM Performed by: Marian Vieyra NP Authorized by: Marian Vieyra NP Consent: Consent obtained:Verbal Consent given by:Parent (Pt's mother) Risks discussed:Bleeding, pain and ischemia Justice protocol: Procedure explained and questions answered to patient or proxy's satisfaction: yes Relevant documents present and verified: yes Test results available and properly labeled: yes Imaging studies available: yes Required blood products, implants, devices, and special equipment available: yes Site/side marked: yes Immediately prior to procedure a time out was called: yes Patient identity confirmed:Anonymous protocol, patient vented/unresponsive Indications: Indications: hemodynamic monitoring and multiple ABGs Pre-procedure details: Skin preparation:2% Chlorhexidine Sedation: Sedation type:Moderate (conscious) sedation Anesthesia (see MAR for exact dosages): Anesthesia method:Local infiltration Local anesthetic:Lidocaine 1% w/o epi Procedure details: Location:R radial Arturo's test performed: yes Arturo's test abnormal: yes Placement technique:Ultrasound guided Number of attempts:2 Transducer: waveform confirmed and dampened amplitude Post-procedure details: Post-procedure:Sterile dressing applied, sutured and secured with tape CMS:Unchanged Patient tolerance of procedure:Tolerated well, no immediate complications Comments: Arterial blood flow inadequate on first attempt. Second attempt with excellent, consistent return and no difficulty advancing catheter over wire. Catheter was secured with both butterfly strip suture as well as silk suture and chlorhexidine impregnated dressing applied * Gram stain (08/17/2018 10:33 AM CDT) Gram stain No WBC's or organisms seen. THOMPSON result Comment: JEW Specimen Information HOSPITAL Specimen Source: Urine Specimen Site: Catheterized Specimen Urine - Catheterized Performing Organization Address City/[facility] Phone Number [facility] DEPARTMENT [facility] [place] [address] PATHOLOGY AND GENOMIC MEDICINE [address] * Urine culture (08/17/2018 10:33 AM CDT) Only the most recent of 4 results within the time period is included. Urine culture No growth after 24 hours [place] isolate Comment: JEW Specimen Information HOSPITAL Specimen Source: Urine Specimen Site: Catheterized Specimen Urine - Catheterized Performing Organization Address City/State/Zipcode Phone Number [facility] DEPARTMENT OF [address] [place] [address] PATHOLOGY AND GENOMIC MEDICINE [facility] [address] [place] [address] [facility] * Lactic acid level, SEPSIS - Now and repeat 2x every 3 hours (08/17/2018 9:55 AM CDT) Only the most recent of 4 results within the time period is included. Pathologist [facility] Lactic acid 1.4 0.5 - 2.2 mmol/L [facility] Specimen Blood Performing Organization Address City/State/Zipcode Phone Number [facility] [address] [place] [address] PATHOLOGY AND GENOMIC MEDICINE [facility] [address] [place] [address] * Hemoglobin A1c (08/17/2018 9:55 AM CDT) Pathologist [facility] Hemoglobin A1C 5.5 4.0 - 5.6 % [place] Comment: JEW HbA1c cutoffs for diagnosing PATERSON diabetes: HOSPITAL 4.0% - 5.6%=normal 5.7% - 6.4%=increased risk for diabetes (prediabetes) >=6.5%=diabetes Goals for glycemic control (ADA 2016) < 7.0%Target for non adults with diabetes. More or less stringent targets may be appropriate for individual patients. <7.5% Target for Children and adolescents with type 1 diabetes. Specimen Blood Performing Organization Address City/State/Zipcode Phone Number [facility] [address] [place] [phone] PATHOLOGY AND GENOMIC MEDICINE [address] * Lipid panel (08/17/2018 9:55 AM CDT) Cholesterol 226 (H) 0 - 199 mg/dL [facility] Triglycerides 273 (H) 0 - 149 mg/dL [facility] HDL cholesterol 42 40 - 9,999 mg/dL [facility] LDL cholesterol 194 (H)Comment: Result 0 - 99 mg/dL [place] obtained by direct LDL JEW measurement [facility] Lipid panel See below [place] interpretation Comment: JEW Total Cholesterol PATERSON (mg/dL) [facility] LDL Cholesterol (mg/dL) <200 Desirable <100 Optimal 200-239Borderline -[id number] 29Near or above optimal >=240High 130-159Borderline- high 160-189High >=190Very high HDL Cholesterol (mg/dL) Triglycerides (mg/dL) <40Low <150 Normal >=60 High 150-199Borderline- high 200-499High >=500Very high Risk Catergories that modify LDL goals. Risk Catergories LDL goal (mg/dL) CHD and CHD risk equivalent <100 (10-year risk >20%) Multiple (2+) risk factors <130 (10-year risk=<20%) 0-1 risk factors <160 (<10-year risk) Defining levels of lipids in metabolic syndrome Triglycerides >=150 mg/dL HDL Cholesterol Men <40 mg/dL Women <50 mg/dL Non-HDL cholesterol is a second target for therapy in persons with high triglycerides (>=200 mg/dL) Specimen Plasma specimen Performing Organization Address City/State/Zipcode Phone Number [facility] [place] OF [address] [facility] [place] [address] PATHOLOGY AND GENOMIC MEDICINE [facility] [address] [place] [address] * Urinalysis screen and microscopy, with reflex to culture (08/17/2018 5:54 AM CDT) Only the most recent of 5 results within the time period is included. Specimen site Catheterized [facility] Color, UA Yellow [facility] Appearance, UA Clear [facility] Specific 1.013 1.001 - 1.035 [place] gravity, UA [facility] pH, UA 6.0 5.0 - 8.5 [facility] Protein, UA 2+ (A) Negative [facility] Glucose, UA Negative Negative [facility] Ketones, UA Trace (A) Negative [facility] Bilirubin, UA Negative Negative [facility] Blood, UA Large (A) Negative [facility] Nitrite, UA Negative Negative [facility] Urobilinogen, Negative <2.0 [facility] Leukocyte Negative Negative [place] esterase, UA [facility] Epithelial Few /HPF [place] cells, UA [facility] WBC, UA 6 (H) 0 - 1 /HPF [facility] RBC, UA 36 (H) 0 - 5 /HPF [facility] Bacteria, UA None seen None seen [facility] Yeast, UA None seen [facility] Yeast with None seen [place] pseudohyphae, [facility] Specimen Urine Performing Organization Address City/State/Zipcode Phone Number [facility] OF [address] [place] [address] PATHOLOGY AND GENOMIC MEDICINE [facility] [address] * ECG ED Preliminary Interpretation - Not an Order (08/17/2018 5:41 AM CDT) Only the most recent of 7 results within the time period is included. Narrative Performed At Micheal Kirkland MD 08/17/20189:05 PM ECG ED Preliminary Interpretation - Not an Order Performed by: Micheal Kirkland MD Authorized by: Micheal Kirkland MD ECG reviewed by ED Physician in the absence of a pharmacy specialist: yes Rate: ECG rate:118 ECG rate assessment: tachycardic Rhythm: Rhythm: sinus tachycardia Ectopy: Ectopy: PVCs QRS: QRS axis:Normal QRS intervals:Normal T waves: T waves: non-specific Comments: QTC: 44 * CRITICAL CARE (08/17/2018 5:41 AM CDT) Narrative Performed At Micheal Kirkland MD 08/17/20189:05 PM Critical Care Performed by: Micheal Kirkland MD Authorized by: Micheal Kirkland MD Critical care provider statement: Critical care time (minutes):76 Critical care time was exclusive of:Separately billable procedures and treating other patients Critical care was necessary to treat or prevent imminent or life-threatening deterioration of the following conditions:Metabolic crisis, toxidrome and [employer] failure or compromise (toxic alcohol intoxication requring intubation and dialysis catheter placement and admission to the ICU) Critical care was time spent personally by me on the following activities:Blood draw for specimens, development of treatment plan with patient or surrogate, discussions with consultants, discussions with primary provider, ordering and performing treatments and interventions, ordering and review of radiographic studies, ordering and review of laboratory studies, pulse oximetry, re-evaluation of patient's condition, evaluation of patient's response to treatment, review of old charts, examination of patient, ventilator management and obtaining history from patient or surrogate Danilo 'yes' if you are taking over critical care for this patient from another provider.: no * Intubation (08/17/2018 5:41 AM CDT) Narrative Performed At Micheal Kirkland MD 08/17/20189:05 PM Intubation Performed by: Micheal Kirkland MD Authorized by: Micheal Kirkland MD Consent: Consent obtained:Emergent situation Justice protocol: Patient identity confirmed:Arm band Pre-procedure details: Patient status:Unresponsive Mallampati score:2 Pretreatment medications:None Induction:Propofol Paralytics:Rocuronium Procedure details: Preoxygenation:Bag valve mask CPR in progress: no Intubation method:Oral Technique:Video laryngoscopy Laryngoscope blade:Mac 3 Grade view:2 Difficult airway?: No Tube size (mm):7.5 Tube type:Cuffed Number of attempts:1 Ventilation between attempts: no Cricoid pressure: no Tube visualized through cords: no Placement assessment: ETT to lip:23 ETT to teeth:21 Tube secured with:ETT angel Breath sounds:Equal Placement verification: chest rise, condensation, CXR verification, direct visualization, equal breath sounds, ETCO2 detector and tube exhalation CXR findings:ETT in proper place Post-procedure details: Patient tolerance of procedure:Tolerated well, no immediate complications * CT Head Wo Contrast (08/17/2018 5:26 AM CDT) Only the most recent of 11 results within the time period is included. Specimen Narrative Performed At Examination:CT HEAD WO CONTRAST [facility] Clinical History: ams Comparison: None. CT scan of the brain was performed without intravenous contrast. CT scans are performed using radiation dose reduction techniques.Technical factors are evaluated and adjusted to ensure appropriate moderation of exposure.Automated dose management technology is applied to adjust radiation exposure while achieving a diagnostic quality image.CT imaging was performed with iterative reconstruction techniques and/or automated exposure control to reduce radiation dose. No mass effect or midline shift is seen. The ventricles are normal in size. No intracranial hemorrhage is seen. The visualized bony structures shows no acute abnormality. Alejo-white junctions are preserved. IMPRESSION: 1. No acute or focal intracranial abnormality identified. [id number] Procedure Note Interface, Radiology Results Incoming - 08/17/2018 5:56 AM CDT Examination: CT HEAD WO CONTRAST Clinical History: ams Comparison: None. CT scan of the brain was performed without intravenous contrast. CT scans are performed using radiation dose reduction techniques. Technical factors are evaluated and adjusted to ensure appropriate moderation of exposure. Automated dose management technology is applied to adjust radiation exposure while achieving a diagnostic quality image. CT imaging was performed with iterative reconstruction techniques and/or automated exposure control to reduce radiation dose. No mass effect or midline shift is seen. The ventricles are normal in size. No intracranial hemorrhage is seen. The visualized bony structures shows no acute abnormality. Alejo-white junctions are preserved. IMPRESSION: 1. No acute or focal intracranial abnormality identified. [facility]-[id number] Performing Organization Address City/[facility] Phone Number [facility] [address] [place] [address] * Methanol level (08/17/2018 5:00 AM CDT) Pathologist [facility] Methanol <5 mg/dL [facility] Comment: INTERPRETIVE INFORMATION:Methanol Therapeutic Range: No therapeutic range - Limit of detection: 5 mg/dL Toxic: Greater than 20 mg/dL Toxic concentrations may cause intoxication, metabolic acidosis, ocular toxicity, [employer]D SOFTWARE ENGINEER depression and fatality if patients do not receive medical treatment. See Compliance Statement B: [email or web address] Performed by [facility], [address] [place] [address] [email or web address], Juan Estrella MD - Lab. Director Specimen Serum Performing Organization Address [facility] Phone Number [facility] [address] [place] [address] [facility] [address] [place] [address] * Partial thromboplastin time, activated (08/17/2018 5:00 AM CDT) Only the most recent of 4 results within the time period is included. Pathologist [facility] PTT 28.2 23.0 - 36.0 sec [place] Comment: JEW PTT therapeutic range for PATERSON unfractionated heparin is HOSPITAL 61.0-112.0 seconds which corresponds to Anti-Xa 0.3-0.7 U/ml. Note:Change in Panic Value The PTT Panic Value is changing from 110 sec. to 100 sec. due to new instrumentation and reagents. Correlation studies have been performed to validate this result. Specimen Blood Performing Organization Address City/[facility] Cent[facility]ode Phone Number [facility] [address] [place] [phone] PATHOLOGY AND [facility] MEDICINE [address] * Prothrombin time with INR (08/17/2018 5:00 AM CDT) Only the most recent of 4 results within the time period is included. Prothrombin 12.9 11.5 - 14.5 sec [facility] INR 1.00 [place] Comment: JEW For patients on anticoagulant PATERSON therapy, reference ranges HOSPITAL below: Indication: INR Value Treatment of Venous Thrombosis, 2.0-3.0 pulmonary emboli, or prophylaxis of a venous thrombosis, or systemic emboli. High dose, high risk patients 3.0-4.5 with mechanical valves. NOTE:INR values over 3.0 are sometimes associated with gastrointestinal hemorrhage, especially values over 4.0. Specimen Blood Performing Organization Address [facility] Cent[facility]ode Phone Number [facility] OF [address] * Lipase level (08/17/2018 5:00 AM CDT) Only the most recent of 2 results within the time period is included. Lipase 24 13 - 60 U/L [facility] Specimen Plasma specimen Performing Organization Address [facility] Centercode Phone Number [facility] OF [address] [place] [address] PATHOLOGY AND [facility] MEDICINE [address] * CT Cervical Spine Wo Contrast (08/16/2018 6:16 PM CDT) Only the most recent of 2 results within the time period is included. Specimen Narrative Performed At EXAMINATION: CT CERVICAL SPINE WO CONTRAST [facility] CLINICAL HISTORY: C-spine traumamyelopathy COMPARISON:None TECHNIQUE: Axial noncontrast enhanced images of the cervical spine were obtained with coronal and sagittal reconstructed algorithms. CT imaging was performed with iterative reconstruction techniques and/or automated exposure control to reduce radiation dose. FINDINGS: No fracture or acute subluxation is identified. The paraspinous soft tissues are unremarkable. Minimal degenerative changes of the cervical spine are noted. No significant disc bulge or herniation is seen. No significant canal or foraminal stenosis is identified. No incidental thyroid lesion is identified. IMPRESSION: No acute abnormality of the cervical spine is identified. [facility]-[id number] Procedure Note Interface, Radiology Results - 08/16/2018 6:24 PM CDT EXAMINATION: CT CERVICAL SPINE WO CONTRAST CLINICAL HISTORY: C-spine trauma myelopathy COMPARISON: None TECHNIQUE: Axial noncontrast enhanced images of the cervical spine were obtained with coronal and sagittal reconstructed algorithms. CT imaging was performed with iterative reconstruction techniques and/or automated exposure control to reduce radiation dose. FINDINGS: No fracture or acute subluxation is identified. The paraspinous soft tissues are unremarkable. Minimal degenerative changes of the cervical spine are noted. No significant disc bulge or herniation is seen. No significant canal or foraminal stenosis is identified. No incidental thyroid lesion is identified. IMPRESSION: No acute abnormality of the cervical spine is identified. [facility]-[id number] Performing Organization Address City/State/Zipcode Phone Number [facility] [address] [place] [address] * CT Maxillofacial Wo Contrast (08/16/2018 6:16 PM CDT) Only the most recent of 3 results within the time period is included. Specimen Narrative Performed At EXAMINATION: CT MAXILLOFACIAL WO CONTRAST [facility] CLINICAL HISTORY: Facial traumafx suspected, Maxface trauma blunt, Nasal fxsuspected COMPARISON:None TECHNIQUE: Axial noncontrastenhanced images through the maxillofacial bones were obtained with bone and soft tissue algorithms. Coronal and sagittal reconstructions were also performed. CT imaging was performed with iterative reconstruction techniques and/or automated exposure control to reduce radiation dose. FINDINGS: Scalp contusion is noted over the right frontal skull and left zygoma. No fracture is seen. The paranasal sinuses are clear. Orbital soft tissues are unremarkable. The temporomandibular joints are well located. IMPRESSION: Superficial soft tissue injuries. No fracture is seen. [facility]-[id number] Procedure Note Interface, Radiology Results Incoming - 08/16/2018 6:23 PM CDT EXAMINATION: CT MAXILLOFACIAL WO CONTRAST CLINICAL HISTORY: Facial trauma fx suspected, Maxface trauma blunt, Nasal fx suspected COMPARISON: None TECHNIQUE: Axial noncontrast enhanced images through the maxillofacial bones were obtained with bone and soft tissue algorithms. Coronal and sagittal reconstructions were also performed. CT imaging was performed with iterative reconstruction techniques and/or automated exposure control to reduce radiation dose. FINDINGS: Scalp contusion is noted over the right frontal skull and left zygoma. No fracture is seen. The paranasal sinuses are clear. Orbital soft tissues are unremarkable. The temporomandibular joints are well located. IMPRESSION: Superficial soft tissue injuries. No fracture is seen. [facility]-[id number] Performing Organization Address City/[facility]/Zipcode Phone Number [facility] [address] [place] [address] * Troponin (08/16/2018 4:59 PM CDT) Only the most recent of 5 results within the time period is included. Troponin 0.032 0.000 - 0.040 ng/mL [place] Comment: [facility] changed methodology effective: HOSPITAL 06/24/2018 at 10:00 am The new method has a 99th percentile cutoff of 0.040 ng/mL Specimen Plasma specimen Performing Organization Address [facility] [place] [address] PATHOLOGY AND [facility] MEDICINE [address] * Type and screen (08/16/2018 4:59 PM CDT) ABO grouping O [facility] Rh type POS [facility] Antibody screen NEG [place] (gel) [facility] Specimen Blood Performing Organization Address [facility] Center[facility] Phone Number [facility] [place] [phone] PATHOLOGY AND GENOMIC MEDICINE [address] * XR Foot 2 Vw Left (08/14/2018 10:07 AM CDT) Specimen Narrative Performed At EXAMINATION:XR FOOT 2 VW LEFT [facility] CLINICAL HISTORY:Dislocationhip COMPARISON:07/27/2018 IMPRESSION: Stable hardware in the lateral malleolus. Interval placement of drain syndesmotic screw and washer adjacent to the medial malleolus. Please refer to ankle x-rays on the same date. 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 No acute fractures, dislocations or malalignment of the bones of the midfoot or forefoot [id number] Procedure Note Interface, Radiology Results Incoming - 08/14/2018 10:32 AM CDT EXAMINATION: XR FOOT 2 VW LEFT CLINICAL HISTORY: Dislocation hip COMPARISON: 07/27/2018 IMPRESSION: Stable hardware in the lateral malleolus. Interval placement of drain syndesmotic screw and washer adjacent to the medial malleolus. Please refer to ankle x-rays on the same date. 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 No acute fractures, dislocations or malalignment of the bones of the midfoot or forefoot [id number] Performing Organization Address [facility] Phone Number [facility] [address] [place] [address] * XR Ankle 2 Vw Left (08/14/2018 9:49 AM CDT) Specimen Narrative Performed At EXAMINATION:XR ANKLE 2 VW LEFT [facility] CLINICAL HISTORY:Fracture non-unionankle COMPARISON:None. IMPRESSION: There is a plate along the lateral fibula with screws traversing the tibia and fibula. A small plate along the medial tibia is noted. Inferior calcaneal spur is noted. Soft tissue swelling about the ankle is seen. Inferior calcaneal spur is seen. [id number] Procedure Note Interface, Radiology Results Incoming - 08/14/2018 9:55 AM CDT EXAMINATION: XR ANKLE 2 VW LEFT CLINICAL HISTORY: Fracture non-union ankle COMPARISON: None. IMPRESSION: There is a plate along the lateral fibula with screws traversing the tibia and fibula. A small plate along the medial tibia is noted. Inferior calcaneal spur is noted. Soft tissue swelling about the ankle is seen. Inferior calcaneal spur is seen. [id number] Performing Organization Address [facility] Centercoaz Phone Number [facility]PITALCity [facility] [address] [place] [address] * T4, free (08/05/2018 7:03 PM CDT) Only the most recent of 2 results within the time period is included. T4, free 0.89 (L) 0.90 - 1.70 ng/dL [facility] Specimen Plasma specimen Performing Organization Address City/State/Zipcode Phone Number [facility] [place] [address] [place] [address] PATHOLOGY AND GENOMIC MEDICINE [facility] [address] [place] [address] HOSPITAL * Carbamazepine level (08/05/2018 7:03 PM CDT) Carbamazepine <2.6 (L) 4.0 - 12.0 ug/mL [place] Comment: JEW Therapeutic Range: [place] 4 - 12 ug/mL HOSPITAL Specimen Blood Performing Organization Address City/[facility] Centercode Phone Number [facility] [address] [place] [address] PATHOLOGY AND GENOMIC MEDICINE [facility] [address] [place] [address] HOSPITAL * XR Foot 3+ Vw Left (07/27/2018 4:34 AM CDT) Specimen Narrative Performed At EXAMINATION:XR FOOT 3VW LEFT [facility] CLINICAL HISTORY:Foot painchronicetiol unknowninitial exam COMPARISON:None. IMPRESSION: Overlying splint/bandages limit evaluation of fine detail. No evidence of acute left foot fracture or dislocation. At the superficial plantar soft tissues at level of first metatarsophalangeal joint, there is a 3 mm angular density which may represent a foreign body. Fixation hardware of left distal fibula, partially visualized; see also concurrent ankle radiographs. [facility]-[id number] Procedure Note Hm Interface, Radiology Results Incoming - 07/27/2018 5:01 AM CDT EXAMINATION: XR FOOT 3 VW LEFT CLINICAL HISTORY: Foot pain chronic etiol unknown initial exam COMPARISON: None. IMPRESSION: Overlying splint/bandages limit evaluation of fine detail. No evidence of acute left foot fracture or dislocation. At the superficial plantar soft tissues at level of first metatarsophalangeal joint, there is a 3 mm angular density which may represent a foreign body. Fixation hardware of left distal fibula, partially visualized; see also concurrent ankle radiographs. [id number] Performing Organization Address City/State/Zipcode Phone Number [facility] [address] [place] [address] * Laceration Repair (06/05/2018 7:39 PM CDT) Narrative Performed At John Aquino DO 06/08/20187:13 AM Laceration Repair Performed by: John Aquino DO Authorized by: John Aquino DO Consent: Consent obtained:Verbal Consent given by:Patient Risks discussed:Pain, infection, need for additional repair and poor cosmetic result Alternatives discussed:No treatment, delayed treatment, observation and referral Anesthesia (see MAR for exact dosages): Anesthesia method:Local infiltration Local anesthetic:Lidocaine 1% w/o epi Laceration details: Location:Face Face location:Nose Repair type: Repair type:Simple Pre-procedure details: Preparation:Patient was prepped and draped in usual sterile fashion and imaging obtained to evaluate for foreign bodies Exploration: Contaminated: no Treatment: Amount of cleaning:Standard Irrigation solution:Sterile saline Skin repair: Repair method:Sutures Suture size:5-0 Number of sutures:4 Approximation: Approximation:Loose Post-procedure details: Dressing:Open (no dressing) Patient tolerance of procedure:Tolerated well, no immediate complications * XR Hand 3+ Vw Right (05/18/2018 12:21 PM CDT) Only the most recent of 4 results within the time period is included. Specimen Narrative Performed At EXAMINATION:XR HAND 3VW RIGHT [facility] CLINICAL HISTORY:trauma COMPARISON:January 01, 2018 IMPRESSION: 1.Postoperative changes are noted at the fifth proximal interphalangeal joint where there are 2 surgical clips. 2. The joint space appears irregular suggesting previous trauma or infection and there is a very slight dorsal subluxation. 3. There is soft tissue swelling involving the entire digit.The bone appears to have improved density compared to the previous exam which would argue against continuing infection. [facility]-[id number] Procedure Note Interface, Radiology Results Incoming - 05/18/2018 12:40 PM CDT EXAMINATION: XR HAND 3 VW RIGHT CLINICAL HISTORY: trauma COMPARISON: January 01, 2018 IMPRESSION: 1. Postoperative changes are noted at the fifth proximal interphalangeal joint where there are 2 surgical clips. 2. The joint space appears irregular suggesting previous trauma or infection and there is a very slight dorsal subluxation. 3. There is soft tissue swelling involving the entire digit. The bone appears to have improved density compared to the previous exam which would argue against continuing infection. [facility]-[id number] Performing Organization Address City/State/Zipcode Phone Number [facility] [address] [place] [address] * XR Hand 3+ Vw Left (05/18/2018 12:21 PM CDT) Specimen Narrative Performed At EXAMINATION:XR HAND 3VW LEFT [facility] CLINICAL HISTORY:trauma COMPARISON:None. IMPRESSION: There is no evidence of acute left hand fracture or dislocation. There are no radiopaque foreign bodies. [facility]-[id number] Procedure Note Hm Interface, Radiology Results Incoming - 05/18/2018 12:35 PM CDT EXAMINATION: XR HAND 3 VW LEFT CLINICAL HISTORY: trauma COMPARISON: None. IMPRESSION: There is no evidence of acute left hand fracture or dislocation. There are no radiopaque foreign bodies. [facility]-[id number] Performing Organization Address [facility]/Zipcode Phone Number [facility] [address] [place] [address] * B natriuretic peptide (02/15/2018 8:10 PM FINISHED CARPET INSPECTOR) BNP 18 0 - 100 pg/mL [facility] [place] [place] Specimen Blood Performing Organization Address [facility] Centercoaz Phone Number [facility] [place] [address] PATHOLOGY AND GENOMIC MEDICINE [address] * [place] level (02/15/2018 8:10 PM FINISHED CARPET INSPECTOR) [place] <0.05 (L) 0.60 - 1.20 mmol/L [facility] Specimen Serum Performing Organization Address [facility] Centercode Phone Number [facility] DEPARTMENT OF [address] [place] [phone] PATHOLOGY AND GENOMIC MEDICINE [address] * Beta hydroxybutyrate (01/01/2018 3:06 AM FINISHED CARPET INSPECTOR) Beta 0.26 0.02 - 0.27 mmol/L [place] hydroxybutyrate [facility] Specimen Blood Performing Organization Address [facility] Centercode Phone Number [facility] [address] [place] [address] PATHOLOGY AND GENOMIC MEDICINE [address] * hCG qualitative, serum screen (01/01/2018 3:06 AM FINISHED CARPET INSPECTOR) Pathologist [facility] hCG Negative [place] qualitative, Comment: BHUMI VARGAS serum The manufacturers stated [facility] sensitivity of HcG test for HOSPITAL serum is >/=10 mIU/ml and urine is >/=20mIU/ml. Specimen Blood Performing Organization Address City/[facility]/Zipcode Phone Number [facility] [place] [address] [place] [address] PATHOLOGY AND GENOMIC MEDICINE [place] BHUMI VARGAS [address] [place] [id number] [place] [address] * XR Shoulder 2+ Vw Right (11/24/2017 8:48 PM CDT) Specimen Narrative Performed At Examination: XR SHOULDER 2VW RIGHT [facility] Clinical history: pain Comparison: July 06, 2015 Impression: 1. There is no fracture or acute osseous pathology. 2. 0.5 cm calcification overlying the inferior medial aspect of the humeral head may represent an intra-articular body. Mild glenohumeral degeneration was better demonstrated on the comparison examination. [facility]-[id number] Procedure Note Hm Interface, Radiology Results Incoming - 11/24/2017 9:11 PM CDT Examination: XR SHOULDER 2 VW RIGHT Clinical history: pain Comparison: July 06, 2015 Impression: 1. There is no fracture or acute osseous pathology. 2. 0.5 cm calcification overlying the inferior medial aspect of the humeral head may represent an intra-articular body. Mild glenohumeral degeneration was better demonstrated on the comparison examination. [facility]-[id number] Performing Organization Address City/[facility] Centercode Phone Number [facility] [address] [place] [address] * Estimated GFR (10/11/2017 7:12 AM CDT) GFR Non Af Amer >90 mL/min/1.73 m2 [facility] OF PATHOLOGY AND GENOMIC MEDICINE GFR Af Amer >90 mL/min/1.73 m2 [facility] Comment: OF PATHOLOGY Chronic kidney disease: <60 AND GENOMIC mL/min/1.73m2 MEDICINE Kidney failure: <15 mL/min/1.73m2 The estimated GFR is calculated from the IDMS-traceable Modification of Diet in Renal Disease Equation. The accuracy of the calculation is poor when the creatinine is normal. Calculated values >90 mL/min/1.73m2 are not reported. This equation has not been validated in children (<18 years), women, the elderly (>70 years), or ethnic groups other than Caucasians and Americans. Specimen Plasma specimen Performing Organization Address City/State/Zipcode Phone Number [place] [phone] [place] [address] PATHOLOGY AND GENOMIC MEDICINE after 09/27/2017 Advance Directives Patient has advance care planning documents, and code status on file. For more i nformation, please contact: Jim Bateman [address] [place] [address] Date Inactivated Comments Code Status Date Activated 06/01/2017 9:35 PM Full Code 05/30/2017 6:03 AM Code Status decision reached by: Patient
--- OUTSIDE RECORDS SUMMARY | 2018-09-28 19:01 | XMS REPORT | Continuity of Care Document ---
Author Author [employer] Address Unknown Phone Unavailable Care Team Providers Care Director [employer]eral Name Role Phone [employer] Unavailable Unavailable Problems Problem Status Onset Date Classification Date Reported Comments Source Hypothyroidism Active 08/26/2018 08/28/2018 [facility] Hardware complicating wound infection Active 08/23/2018 08/28/2018 [facility] Infection following procedure Active 08/21/2018 08/28/2018 [facility] Hypertension Active 08/21/2018 08/28/2018 [facility] Diabetes mellitus Active 08/21/2018 08/28/2018 [facility] COPD Active 08/21/2018 08/28/2018 [facility] Currently unemployed and looking for work Active 08/21/2018 08/28/2018 [facility] Uninsured Active 08/21/2018 08/28/2018 [facility] Deconditioned low back Active 08/21/2018 08/28/2018 [facility] Homelessness Active 08/21/2018 08/28/2018 [facility] Surgical site infection Active 08/20/2018 08/28/2018 [facility] Alcohol intoxication Active 07/17/2017 08/28/2018 [facility] ETOH abuse Active 07/17/2017 08/28/2018 [facility] Ventral incisional hernia s/p open repair with mesh 08/18 Active 08/18/2016 08/28/2018 [facility] Periumbilical pain Active 08/17/2016 08/28/2018 [facility] Hernia Active 08/28/2018 [facility] Generalized abdominal pain Active 08/28/2018 [facility] Jaundice Active 08/28/2018 [facility] Accidental acetaminophen overdose Active 08/28/2018 [facility] Cellulitis of left lower extremity Active 08/28/2018 [facility] Altered level of consciousness Active 08/28/2018 [facility] Chronic pain of left ankle Active 08/28/2018 [facility] Alcohol withdrawal syndrome with perceptual disturbance Active 08/28/2018 [facility] Hypertension, unspecified type Active 08/28/2018 [facility] Ventral incisional hernia Active 08/28/2018 [facility] Hypothyroidism, unspecified type Active 08/28/2018 [facility] Essential hypertension Active 08/28/2018 [facility] Hardware complicating wound infection, initial encounter Active 08/28/2018 [facility] Left ankle pain Active 08/28/2018 [facility] Pain of left lower extremity Active 08/28/2018 [facility] Trauma Active 08/28/2018 [facility] Accidental acetaminophen overdose, initial encounter Active 08/28/2018 [facility] Medications Medication Details Route Status Patient Instructions Ordering Provider Order Date Source levothyroxine (SYNTHROID) 25 mcg tablet Take 1 tablet by mouth every morning (before breakfast). Oral Active 08/27/2018 [facility] amLODIPine (NORVASC) 10 mg tablet Take 1 tablet by mouth daily. Oral No Longer Active 08/27/2018 [facility] LEVOTHYROXINE SODIUM (SYNTHROID OR) Take by mouth. Oral No Longer Active 08/26/2018 [facility] LISINOPRIL OR Take by mouth. Oral No Longer Active 08/26/2018 [facility] DIVALPROEX SODIUM (DEPAKOTE OR) Take by mouth. Oral No Longer Active 08/26/2018 [facility] ciprofloxacin HCl (CIPRO) 750 mg tablet Take 1 tablet by mouth 2 times daily for 41 days. Oral Active 08/26/2018 [facility] doxycycline monohydrate (MONODOX) 100 mg capsule Take 1 capsule by mouth every 12 hours for 41 days. Oral Active 08/26/2018 [facility] acetaminophen-codeine (TYLENOL/CODEINE #3) 300-30 mg per tablet Take 1 tablet by mouth 2 times daily as needed for up to 20 days for Pain. Oral Active 08/26/2018 [facility] cloNIDine HCl (CATAPRES) 0.1 mg tablet Take 1 tablet by mouth every 12 hours. Oral Inactive 08/26/2018 [facility] Gabapentin 300 Mg Capsule Take 1 capsule by mouth 3 times daily. Oral Active 08/27/2016 [facility] Tramadol 50 Mg Tablet Take 2 tablets by mouth every 6 hours as needed for Pain. Oral Active 08/27/2016 [facility] Ondansetron Hcl 4 Mg Tablet Zofran 4 Mg Tablet Take 1 tablet by mouth every 8 hours as needed for Nausea. Oral Active 08/27/2016 [facility] Miscellaneous Medical Supply Misc by Mis.(Non-Drug; Combo Route) route Please provide patient with rolling walker that is at bedside.. Active 08/27/2016 [facility] gabapentin (NEURONTIN) 300 mg capsule Take 1 capsule by mouth 3 times daily. Oral No Longer Active 08/27/2016 [facility] traMADol (ULTRAM) 50 mg tablet Take 2 tablets by mouth every 6 hours as needed for Pain. Oral No Longer Active 08/27/2016 [facility] ondansetron (ZOFRAN) 4 mg tablet Take 1 tablet by mouth every 8 hours as needed for Nausea. Oral No Longer Active 08/27/2016 [facility] Miscellaneous Medical Supply Misc by [facility].(Non-Drug; Combo Route) route Please provide patient with rolling walker that is at bedside.. Active 08/27/2016 [facility] Acetaminophen 300 Mg-Codeine 30 Mg Tablet Tylenol-Codeine #3 300 Mg-30 Mg Tablet Take 1 tablet by mouth every 4 hours as needed for Pain. Oral Active 08/17/2016 [facility] Ondansetron Hcl 4 Mg Tablet Zofran 4 Mg Tablet Take 1 tablet by mouth every 8 hours as needed for up to 10 doses for Nausea. Oral Active 08/17/2016 [facility] acetaminophen-codeine (TYLENOL/CODEINE #3) 300-30 mg per tablet Take 1 tablet by mouth every 4 hours as needed for Pain. Oral No Longer Active 08/17/2016 [facility] ondansetron (ZOFRAN) 4 mg tablet Take 1 tablet by mouth every 8 hours as needed for up to 10 doses for Nausea. Oral No Longer Active 08/17/2016 [facility] LEVOTHYROXINE SODIUM (SYNTHROID OR) Take by mouth. Oral Active [facility] LISINOPRIL OR Take by mouth. Oral Active [facility] METFORMIN HCL (METFORMIN OR) Take by mouth. Oral Active [facility] DIVALPROEX SODIUM (DEPAKOTE OR) Take by mouth. Oral Active [facility] Allergies, Adverse Reactions, Alerts Substance Category Reaction Severity Reaction type Status Date Reported Comments Source Phenytoin Sodium Extended Propensity to adverse reactions to drug Active 11/26/2008 [facility] Phenytoin Unknown Allergy to Substance Active 04/30/2017 [facility] Immunizations No Data Provided for This Section Results Order Name Results Value Reference Range Date Interpretation Comments Source ANAEROBE CULTURE <td ID="[id number]">Anaerobe Culture</td><td>No anaerobes isolated in 5 days</td><td/><td>[facility]</td><td ID="[id number]"/> No anaerobes isolated in 5 days 08/26/2018 [facility] GLUCOSE POC Glucose POC 187 74 - 106 08/26/2018 [facility] GLUCOSE POC Lab Interpretation Abnormal 08/26/2018 [facility] BASIC METABOLIC PANEL <td ID="[id number]">Sodium</td><td>136</td><td>136 - 145 mmol/L</td><td>[facility]</td><td ID="[id number]"/> 136 136 - 145 08/26/2018 [facility] BASIC METABOLIC PANEL <td ID="[id number]">Potassium</td><td>4.3</td><td>3.5 - 5.1 mmol/L</td><td>[facility]</td><td ID="[id number]"/> 4.3 3.5 - 5.1 08/26/2018 [facility] BASIC METABOLIC PANEL <td ID="[id number]">Chloride</td><td>102</td><td>98 - 107 mmol/L</td><td>[facility]</td><td ID="[id number]"/> 102 98 - 107 08/26/2018 [facility] BASIC METABOLIC PANEL CO2 27 21 - 31 08/26/2018 [facility] BASIC METABOLIC PANEL Urea Nitrogen 11.0 7 - 25 08/26/2018 [facility] BASIC METABOLIC PANEL Creatinine 0.8 0.7 - 1.3 08/26/2018 [facility] BASIC METABOLIC PANEL Glucose 131 70 - 110 08/26/2018 [facility] BASIC METABOLIC PANEL Calcium, Total 9.2 8.6 - 10.3 08/26/2018 [facility] BASIC METABOLIC PANEL GFR, Estimated >90 >=90 mL/min/1.73 m2 08/26/2018 [facility] BASIC METABOLIC PANEL Anion Gap 7 5 - 16 08/26/2018 [facility] BASIC METABOLIC PANEL Lab Interpretation Abnormal 08/26/2018 [facility] MAGNESIUM Magnesium 1.8 1.9 - 2.7 08/26/2018 [facility] MAGNESIUM Lab Interpretation Abnormal 08/26/2018 [facility] PHOSPHORUS <td ID="[id number]">Phosphorus</td><td>4.9</td><td>2.5 - 5.0 mg/dL</td><td>[facility]</td><td ID="[id number]"/> 4.9 2.5 - 5 08/26/2018 [facility] PHOSPHORUS Lab Interpretation Normal 08/26/2018 [facility] PT/INR/PTT <td ID="[id number]">PT</td><td>13.6</td><td>11.8 - 15.0 Seconds</td><td>[facility]</td><td ID="[id number]"/> 13.6 11.8 - 15.0 08/26/2018 [facility] PT/INR/PTT INR 1.1 Refer to INR ranges 08/26/2018
2.0 - 3.0 for moderate intensity anticoagulation
2.5 - 3.5 for high intensity anticoagulation

[facility] PT/INR/PTT PTT 30.2 23.6 - 36.4 08/26/2018
The recommended therapuetic range is an APTT 61-103 seconds which corresponds to 0.3-0.7 anti Xa u/ml.
[facility] PT/INR/PTT Lab Interpretation Normal 08/26/2018 [facility] CBC (WITHOUT DIFFERENTIAL) <td ID="[id number]">WBC</td><td>5.5</td><td>4.5 - 12.0 K/uL</td><td>[facility]</td><td ID="[id number]"/> 5.5 4.5 - 12 08/26/2018 [facility] CBC (WITHOUT DIFFERENTIAL) <td ID="[id number]">RBC</td><td><span style="flagData">2.99</span><span style="flagData"> (L)</span></td><td>4.60 - 6.20 M/uL</td><td>[facility]</td><td ID="[id number]"/> 2.99 4.60 - 6.20 08/26/2018 [facility] CBC (WITHOUT DIFFERENTIAL) <td ID="[id number]">Hemoglobin</td><td><span style="flagData">8.3</span><span style="flagData"> (L)</span></td><td>14.0 - 18.0 g/dL</td><td>[facility]</td><td ID="[id number]"/> 8.3 14 - 18 08/26/2018 [facility] CBC (WITHOUT DIFFERENTIAL) <td ID="[id number]">Hematocrit</td><td><span style="flagData">27.2</span><span style="flagData"> (L)</span></td><td>40.0 - 54.0 %</td><td>[facility]</td><td ID="[id number]"/> 27.2 40 - 54 08/26/2018 [facility] CBC (WITHOUT DIFFERENTIAL) <td ID="[id number]">MCV</td><td>91.0</td><td>82.0 - 92.0 fL</td><td>[facility]</td><td ID="[id number]"/> 91.0 82 - 92 08/26/2018 [facility] CBC (WITHOUT DIFFERENTIAL) <td ID="[id number]">MCH</td><td>27.8</td><td>27.0 - 31.0 pg</td><td>[facility]</td><td ID="[id number]"/> 27.8 27 - 31 08/26/2018 [facility] CBC (WITHOUT DIFFERENTIAL) <td ID="[id number]">MCHC</td><td><span style="flagData">30.5</span><span style="flagData"> (L)</span></td><td>32.0 - 36.0 g/dL</td><td>[facility]</td><td ID="[id number]"/> 30.5 32 - 36 08/26/2018 [facility] CBC (WITHOUT DIFFERENTIAL) <td ID="[id number]">RDW</td><td><span style="flagData">47.3</span><span style="flagData"> (H)</span></td><td>35.1 - 43.9 fL</td><td>[facility]</td><td ID="[id number]"/> 47.3 35.1 - 43.9 08/26/2018 [facility] CBC (WITHOUT DIFFERENTIAL) <td ID="[id number]">Platelet</td><td>285</td><td>150 - 400 K/uL</td><td>[facility]</td><td ID="[id number]"/> 285 150 - 400 08/26/2018 [facility] CBC (WITHOUT DIFFERENTIAL) <td ID="[id number]">Mean Platelet Volume</td><td><span style="flagData">8.4</span><span style="flagData"> (L)</span></td><td>9.4 - 12.4 fL</td><td>[facility]</td><td ID="[id number]"/> 8.4 9.4 - 12.4 08/26/2018 [facility] CBC (WITHOUT DIFFERENTIAL) Percent NRBC 0.0 08/26/2018 [facility] CBC (WITHOUT DIFFERENTIAL) Lab Interpretation Abnormal 08/26/2018 [facility] TISSUE CULTURE AND GRAM STAIN <td ID="[id number]">Gram Stain</td><td>2+ WBCs</td><td/><td>[facility]</td><td ID="[id number]"/> 2+ WBCs 08/24/2018 [facility] TISSUE CULTURE AND GRAM STAIN <td ID="[id number]">Gram Stain</td><td>No organisms seen</td><td/><td>[facility]</td><td ID="[id number]"/> No organisms seen 08/24/2018 [facility] TISSUE CULTURE AND GRAM STAIN Lab Interpretation Abnormal 08/24/2018 [facility] FERRITIN Ferritin 51.2 23.9 - 336.2 08/23/2018 [facility] FERRITIN Lab Interpretation Normal 08/23/2018 [facility] IRON PROFILE Iron 16 50 - 212 08/23/2018 [facility] IRON PROFILE TIBC 477 250 - 450 08/23/2018 [facility] IRON PROFILE % Iron Sat 3 08/23/2018 [facility] IRON PROFILE Transferrin 340.70 203 - 362 08/23/2018 [facility] IRON PROFILE Lab Interpretation Abnormal 08/23/2018 [facility] VANCOMYCIN, TROUGH Vancomycin, Trough 8.4 10 - 20 08/23/2018 [facility] VANCOMYCIN, TROUGH Lab Interpretation Abnormal 08/23/2018 [facility] CBC <td ID="[id number]">WBC</td><td>5.7</td><td>4.5 - 12.0 K/uL</td><td>[facility]</td><td ID="[id number]"/> 5.7 4.5 - 12 08/22/2018 [facility] CBC <td ID="[id number]">RBC</td><td><span style="flagData">3.05</span><span style="flagData"> (L)</span></td><td>4.60 - 6.20 M/uL</td><td>[facility]</td><td ID="[id number]"/> 3.05 4.60 - 6.20 08/22/2018 [facility] CBC <td ID="[id number]">Hemoglobin</td><td><span style="flagData">8.6</span><span style="flagData"> (L)</span></td><td>14.0 - 18.0 g/dL</td><td>[facility]</td><td ID="[id number]"/> 8.6 14 - 18 08/22/2018 [facility] CBC <td ID="[id number]">Hematocrit</td><td><span style="flagData">28.9</span><span style="flagData"> (L)</span></td><td>40.0 - 54.0 %</td><td>[facility]</td><td ID="[id number]"/> 28.9 40 - 54 08/22/2018 [facility] CBC <td ID="[id number]">MCV</td><td><span style="flagData">94.8</span><span style="flagData"> (H)</span></td><td>82.0 - 92.0 fL</td><td>[facility]</td><td ID="[id number]"/> 94.8 82 - 92 08/22/2018 [facility] CBC <td ID="[id number]">MCH</td><td>28.2</td><td>27.0 - 31.0 pg</td><td>[facility]</td><td ID="[id number]"/> 28.2 27 - 31 08/22/2018 [facility] CBC <td ID="[id number]">[facility]</td><td><span style="flagData">29.8</span><span style="flagData"> (L)</span></td><td>32.0 - 36.0 g/dL</td><td>[facility]</td><td ID="[id number]"/> 29.8 32 - 36 08/22/2018 [facility] CBC <td ID="[id number]">RDW</td><td><span style="flagData">50.5</span><span style="flagData"> (H)</span></td><td>35.1 - 43.9 fL</td><td>[facility]</td><td ID="[id number]"/> 50.5 35.1 - 43.9 08/22/2018 [facility] CBC <td ID="[id number]">Platelet</td><td>347</td><td>150 - 400 K/uL</td><td>[facility]</td><td ID="[id number]"/> 347 150 - 400 08/22/2018 [facility] CBC <td ID="[id number]">Mean Platelet Volume</td><td><span style="flagData">8.5</span><span style="flagData"> (L)</span></td><td>9.4 - 12.4 fL</td><td>[facility]</td><td ID="[id number]"/> 8.5 9.4 - 12.4 08/22/2018 [facility] CBC Percent NRBC 0.0 08/22/2018 [facility] CBC <td ID="[id number]">Neutrophil</td><td><span style="flagData">73.5</span><span style="flagData"> (H)</span></td><td>34.0 - 67.9 %</td><td>[facility]</td><td ID="[id number]"/> 73.5 34 - 67.9 08/22/2018 [facility] CBC <td ID="[id number]">Lymphocyte</td><td><span style="flagData">10.5</span><span style="flagData"> (L)</span></td><td>21.8 - 50.0 %</td><td>[facility]</td><td ID="[id number]"/> 10.5 21.8 - 50 08/22/2018 [facility] CBC <td ID="[id number]">Monocyte</td><td>8.7</td><td>5.3 - 12.0 %</td><td>[facility]</td><td ID="[id number]"/> 8.7 5.3 - 12 08/22/2018 [facility] CBC <td ID="[id number]">Eosinophil</td><td><span style="flagData">6.1</span><span style="flagData"> (H)</span></td><td>0.8 - 5.0 %</td><td>[facility]</td><td ID="[id number]"/> 6.1 0.8 - 5 08/22/2018 [facility] CBC <td ID="[id number]">Basophil</td><td>0.5</td><td>0.2 - 1.2 %</td><td>[facility]</td><td ID="[id number]"/> 0.5 0.2 - 1.2 08/22/2018 [facility] CBC Pct Immat Gran 0.7 0 - 0.5 08/22/2018 [facility] CBC Neutrophil, Abs 4.21 1.78 - 5.36 08/22/2018 [facility] CBC Lymphocyte, Abs 0.60 1.32 - 3.57 08/22/2018 [facility] CBC Monocyte, Abs 0.50 0.3 - 0.82 08/22/2018 [facility] CBC Eosinophil, Abs 0.35 0.04 - 0.54 08/22/2018 [facility] CBC Basophil, Abs 0.03 0.01 - 0.08 08/22/2018 [facility] CBC Absol Immat Gran 0.04 0 - 0.03 08/22/2018 [facility] CBC Absolute NRBC-CV 0.00 08/22/2018 [facility] CBC <p>once per hospital admission</p> once per hospital admission 08/22/2018 [facility] CBC Lab Interpretation Abnormal 08/22/2018 [facility] HEMOGLOBIN A1C <td ID="[id number]">Hemoglobin A1c</td><td>5.9</td><td>%</td><td>[facility]</td><td ID="[id number]"/> 5.9 08/22/2018 [facility] HEMOGLOBIN A1C Estimated Average Glucose 123 70 - 110 08/22/2018 [facility] HEMOGLOBIN A1C <p>once per hospital admission</p> once per hospital admission 08/22/2018 [facility] HEMOGLOBIN A1C Lab Interpretation Abnormal 08/22/2018 [facility] HEPATITIS PANEL <td ID="[id number]">Hep C Vir Ab IgG</td><td>Negative</td><td>Negative</td><td>[facility]</td><td ID="[id number]"/> Negative Negative 08/21/2018 [facility] HEPATITIS PANEL <td ID="[id number]">Hep B Surface Ag</td><td>Negative</td><td>Negative</td><td>[facility]</td><td ID="[id number]"/> Negative Negative 08/21/2018 [facility] HEPATITIS PANEL <td ID="[id number]">Hep A Vir Ab IgM</td><td>Negative</td><td>Negative</td><td>[facility]</td><td ID="[id number]"/> Negative Negative 08/21/2018 [facility] HEPATITIS PANEL <td ID="[id number]">Hep B Core Ab IgM</td><td>Negative</td><td>Negative</td><td>[facility]</td><td ID="[id number]"/> Negative Negative 08/21/2018 [facility] HEPATITIS PANEL Lab Interpretation Normal 08/21/2018 [facility] VITAMIN B12 Vitamin B12 270 See comment 08/21/2018 Normal: 180-914 pg/mL
Intermittent: 145-180 pg/mL
Deficient: <=145.0 pg/mL
[facility] FOLIC ACID Folic Acid 15.1 5.9 - 24.8 08/21/2018 [facility] FOLIC ACID Lab Interpretation Normal 08/21/2018 [facility] COMPREHENSIVE METABOLIC PANEL <td ID="[id number]">Sodium</td><td>138</td><td>136 - 145 mmol/L</td><td>[facility]</td><td ID="[id number]"/> 138 136 - 145 08/21/2018 [facility] COMPREHENSIVE METABOLIC PANEL <td ID="[id number]">Potassium</td><td>4.1</td><td>3.5 - 5.1 mmol/L</td><td>[facility]</td><td ID="[id number]"/> 4.1 3.5 - 5.1 08/21/2018 [facility] COMPREHENSIVE METABOLIC PANEL <td ID="[id number]">Chloride</td><td>100</td><td>98 - 107 mmol/L</td><td>[facility]</td><td ID="[id number]"/> 100 98 - 107 08/21/2018 [facility] COMPREHENSIVE METABOLIC PANEL CO2 28 21 - 31 08/21/2018 [facility] COMPREHENSIVE METABOLIC PANEL Glucose 124 70 - 110 08/21/2018 [facility] COMPREHENSIVE METABOLIC PANEL Calcium, Total 9.7 8.6 - 10.3 08/21/2018 [facility] COMPREHENSIVE METABOLIC PANEL Urea Nitrogen 10.0 7 - 25 08/21/2018 [facility] COMPREHENSIVE METABOLIC PANEL Creatinine 0.6 0.7 - 1.3 08/21/2018 [facility] COMPREHENSIVE METABOLIC PANEL Alkaline Phosphatase 91 34 - 104 08/21/2018 [facility] COMPREHENSIVE METABOLIC PANEL ALT 71 7 - 52 08/21/2018 [facility] COMPREHENSIVE METABOLIC PANEL AST 89 13 - 39 08/21/2018 [facility] COMPREHENSIVE METABOLIC PANEL <td ID="[id number]">Total Bilirubin</td><td>0.5</td><td>0.2 - 1.2 mg/dL</td><td>[facility]</td><td ID="[id number]"/> 0.5 0.2 - 1.2 08/21/2018 [facility] COMPREHENSIVE METABOLIC PANEL <td ID="[id number]">Total Protein</td><td>6.7</td><td>6.0 - 8.3 g/dL</td><td>[facility]</td><td ID="[id number]"/> 6.7 6 - 8.3 08/21/2018 [facility] COMPREHENSIVE METABOLIC PANEL GFR, Estimated >90 >=90 mL/min/1.73 m2 08/21/2018 [facility] COMPREHENSIVE METABOLIC PANEL <td ID="[id number]">Albumin</td><td>4.2</td><td>4.2 - 5.5 g/dL</td><td>[facility]</td><td ID="[id number]"/> 4.2 4.2 - 5.5 08/21/2018 [facility] COMPREHENSIVE METABOLIC PANEL Anion Gap 10 5 - 16 08/21/2018 [facility] COMPREHENSIVE METABOLIC PANEL Lab Interpretation Abnormal 08/21/2018 [facility] OSMOLALITY,SERUM Osmolality, Serum 290 266 - 300 08/21/2018 [facility] OSMOLALITY,SERUM Lab Interpretation Normal 08/21/2018 [facility] ALCOHOL, MEDICAL USE ONLY ALCOHOL, SERUM - RESULT (BKR) 0.01 <0.10 08/21/2018 [facility] ALCOHOL, MEDICAL USE ONLY Lab Interpretation Normal 08/21/2018 [facility] AMMONIA Ammonia 74.0 16 - 53 08/20/2018 [facility] AMMONIA Lab Interpretation Abnormal 08/20/2018 [facility] 12 LEAD EKG 12 LEAD EKG FOR [facility] Test Date:2018-08-20 Pat Name: LESVIA RUSSO Department: : [facility] A 03 Gender: MTechnician: [id number] :1980 Requested By: LATASHA Alexander Order Number: [id number] MD: Bhavna Arceo M.D. Measurements IntervalsAxis Rate: 93 P:70 ME: 148QRS:60 QRSD: 87 T:45 QT: 378 QTc:472 Interpretive Statements SINUS RHYTHM Reviewed by Electronically Signed On 08-20-2018 17:53:26 CDT by Bhavna Arceo M.D. 08/20/2018 [facility] VALPROIC ACID Valproic Acid 19.4 50 - 100 08/20/2018 [facility] VALPROIC ACID Lab Interpretation Abnormal 08/20/2018 [facility] TROPONIN I POC Troponin POC 0.01 0 - 0.08 08/20/2018 [facility] TROPONIN I POC Lab Interpretation Normal 08/20/2018 [facility] C-REACTIVE PROTEIN HIGH SENSITIVITY (CRP-HS) CRP, High Sensitivity 21.6 <1.0 08/20/2018 [facility] C-REACTIVE PROTEIN HIGH SENSITIVITY (CRP-HS) Lab Interpretation Abnormal 08/20/2018 [facility] SED RATE Sed Rate 40 0 - 15 08/20/2018 [facility] SED RATE Lab Interpretation Abnormal 08/20/2018 [facility] ABG POC pH, Art POC 7.44 7.35 - 7.45 08/20/2018 [facility] ABG POC pCO2, Arterial POC 38.9 32 - 45 08/20/2018 [facility] POC pO2, Arterial POC 35 72 - 104 08/20/2018 [facility] POC Base Excss Art POC 2 08/20/2018 [facility] POC HCO3, Arterial POC 27 22 - 26 08/20/2018 [facility] POC % Sat, Art POC 69 08/20/2018 [facility] POC TCO2, ART POC 28 21 - 32 08/20/2018 [facility] POC Lactic Acid POC 1.94 0.4 - 2 08/20/2018 [facility] POC Sample Type IART 08/20/2018 --- [facility] POC ETCO2 ETCO2 [facility] 08/20/2018 [facility] POC Lab Interpretation Abnormal 08/20/2018 [facility] POC Sodium POC 141 136 - 145 08/20/2018 [facility] POC Potassium POC 3.8 3.5 - 5.1 08/20/2018 [facility] POC Chloride POC 103 98 - 107 08/20/2018 [facility] POC TCO2 POC 27 21 - 32 08/20/2018 [facility] POC Urea Nitrogen POC 7 7 - 18 08/20/2018 [facility] POC Creatinine POC 0.7 0.6 - 1.3 08/20/2018 [facility] POC Glucose POC 189 74 - 106 08/20/2018 [facility] POC Ionized Calcium POC 1.17 1.15 - 1.29 08/20/2018 [facility] POC GFR, Estimated >90 >=90 mL/min/1.73 m2 08/20/2018 [facility] POC Hemoglobin POC 9.5 12 - 16 08/20/[address] [facility] POC Hematocrit POC 28.0 37 - 47 08/20/2018 [facility] POC Lab Interpretation Abnormal 08/20/2018 [facility] LIVER PROFILE <td ID="[id number]">Total Protein</td><td>7.1</td><td>6.0 - 8.3 g/dL</td><td>[facility]</td><td ID="[id number]"/> 7.1 6 - 8.3 08/09/2018 [facility] LIVER PROFILE <td ID="[id number]">Total Bilirubin</td><td>0.7</td><td>0.2 - 1.2 mg/dL</td><td>[facility]</td><td ID="[id number]"/> 0.7 0.2 - 1.2 08/09/2018 [facility] LIVER PROFILE Alkaline Phosphatase 99 34 - 104 08/09/2018 [facility] LIVER PROFILE AST 31 13 - 39 08/09/2018 [facility] LIVER PROFILE <td ID="[id number]">Direct Bilirubin</td><td><span style="flagData">0.3</span><span style="flagData"> (H)</span></td><td>0.0 - 0.2 mg/dL</td><td>[facility]</td><td ID="[id number]"/> 0.3 0 - 0.2 08/09/2018 [facility] LIVER PROFILE ALT 27 7 - 52 08/09/2018 [facility] LIVER PROFILE <td ID="[id number]">Albumin</td><td>4.3</td><td>4.2 - 5.5 g/dL</td><td>[facility]</td><td ID="[id number]"/> 4.3 4.2 - 5.5 08/09/2018 [facility] LIVER PROFILE Lab Interpretation Abnormal 08/09/2018 [facility] ACETAMINOPHEN Acetaminophen 103.81 10 - 30 08/04/2018
Please refer to acetaminophen nomogram.
[facility] ACETAMINOPHEN Lab Interpretation Abnormal 08/04/2018 [facility] SALICYLATE Salicylate <2.5 2.8 - 30 08/04/2018 [facility] SALICYLATE Lab Interpretation Abnormal 08/04/2018 [facility] PT/INR <td ID="[id number]">PT</td><td>13.2</td><td>11.8 - 15.0 Seconds</td><td>[facility]</td><td ID="[id number]"/> 13.2 11.8 - 15.0 08/04/2018 [facility] PT/INR INR 1.0 Refer to INR ranges 08/04/2018
2.0 - 3.0 for moderate intensity anticoagulation
2.5 - 3.5 for high intensity anticoagulation

[facility] PT/INR Lab Interpretation Normal 08/04/2018 [facility] POC CO2 POC 23 21 - 32 07/23/2017 [facility] POC Chloride POC 98 98 - 107 07/23/2017 [facility] POC Potassium POC 3.9 3.5 - 5.1 07/23/2017 [facility] POC Sodium POC 135 136 - 145 07/23/[address] [facility] POC Glucose POC 303 74 - 106 07/23/[address] [facility] POC Urea Nitrogen POC 8 7 - 18 07/23/2017 [facility] POC Creatinine POC 0.7 0.6 - 1.3 07/23/2017 [facility] POC Calcium Ionized POC 1.01 1.15 - 1.29 07/23/[address] [facility] POC Hemoglobin POC 13.6 14 - 18 07/23/2017 [facility] POC Hematocrit POC 40.0 40 - 54 07/23/2017 [facility] POC GFR, Estimated >60 mL/min/1.73 m2 07/23/2017 [facility] POC GFR, Estim, Afr-Am >60 mL/min/1.73 m2 07/23/2017 [facility] POC Lab Interpretation Abnormal 07/23/2017 [facility] ALCOHOL Alcohol 0.132 <0.1 07/23/2017 [facility] ALCOHOL Lab Interpretation Abnormal 07/23/2017 [facility] LIVER PROFILE T Protein 6.9 6 - 8.3 07/23/2017 [facility] LIVER PROFILE Albumin 4.3 4.2 - 5.5 07/23/2017 [facility] LIVER [facility] T Bilirubin 1.3 0.2 - 1.2 07/23/2017 [facility] LIVER PROFILE Alk Phos 189 34 - 104 07/23/2017 [facility] LIVER PROFILE AST 154 13 - 39 07/23/2017 [facility] LIVER PROFILE ALT 155 7 - 52 07/23/2017 [facility] LIVER PROFILE D Bilirubin 0.5 0 - 0.2 07/23/2017 [facility] LIVER PROFILE Lab Interpretation Abnormal 07/23/2017 [facility] PT/INR PT 12.5 Seconds 11.8 - 15.0 07/23/2017 [facility] PT/INR INR 0.9 SUGGESTED THERAPEUTIC RANGES: INR 2.0-3.0 for MODERATE INTENSITY ANTICOAGULATION INR 2.5-3.5 for HIGH INTENSITY ANTICOAGULATION 07/23/2017 [facility] UA CHEMISTRIES Color Yellow 07/23/2017 [facility] UA CHEMISTRIES Clarity Clear 07/23/2017 [facility] UA CHEMISTRIES Spec [place] 1.031 1.001 - 1.035 07/23/2017 [facility] UA CHEMISTRIES pH 6.0 5 - 8 07/23/2017 [facility] UA CHEMISTRIES Protein 2+ NEG 07/23/2017 Abnormal [facility] UA CHEMISTRIES Glucose 3+ NEG 07/23/2017 Abnormal [facility] UA CHEMISTRIES Ketone Negative NEG 07/23/2017 [facility] UA CHEMISTRIES Bilirubin Negative NEG 07/23/2017 [facility] UA CHEMISTRIES Nitrate Negative NEG 07/23/2017 [facility] UA CHEMISTRIES Urobilinogen <1.0 0.2 - 1 07/23/2017 [facility] UA CHEMISTRIES Leukocyte Negative NEG 07/23/2017 [facility] UA CHEMISTRIES Blood 1+ NEG 07/23/2017 Abnormal [facility] UA CHEMISTRIES RBC 1 /HPF 0 - 4 07/23/2017 [facility] UA CHEMISTRIES WBC <1 0 - 5 07/23/2017 [facility] UA CHEMISTRIES Epithelial Cell <1 /HPF 07/23/2017 [facility] UA CHEMISTRIES Lab Interpretation Abnormal 07/23/2017 [facility] OCCULT BLOOD ICT Occult Blood [facility] Negative [facility] POC 7.42 7.33 - 7.43 07/23/2017 [facility] VBG POC pCO2, Jay POC 36.7 mm Hg 38.0 - 50.0 07/23/2017 [facility] VBG POC pO2, Jay POC 63 mm Hg 50 - 75 07/23/2017 [facility] VBG POC Base Excess, Jay POC 0 [facility] HCO3, Jay POC 23.8 22 - 26 07/23/2017 [facility] VBG POC % Sat, Jay POC 92 60 - 85 07/23/2017 [facility] L[facility] Jay POC 1.84 0.4 - 2 07/23/2017 [facility]BG POC Sample Type Jay 07/23/2017 [facility] VBG POC TCO2, JAY POC 25 21 - 32 07/23/2017 [facility] VBG POC Lab Interpretation Abnormal 07/23/2017 [facility] 12 LEAD EKG 12 LEAD EKG FOR [facility] Test Date:2017-07-23 Pat Name: LESVIA RUSSO Department: : Gender: MTechnician: [id number] :1980 Requested By: Order Number:Reading MD: ray tavarez Measurements IntervalsAxis Rate: 91 P:58 ME: 162QRS:45 QRSD: 84 T:53 QT: 376 QTc:463 Interpretive Statements SINUS RHYTHM SEPTAL MYOCARDIAL INFARCTION, PROBABLY OLD Electronically Signed On 07-23-17 14:45:39 CDT by ray tavarez 07/23/2017 [facility] CBC/DIFF WBC 7.7 4.5 - 12 07/23/2017 [facility] CBC/DIFF RBC 4.06 M/uL 4.60 - 6.20 07/23/2017 Low [facility] CBC/DIFF Hemoglobin 13.5 14 - 18 07/23/2017 [facility] CBC/DIFF Hematocrit 39.5 40 - 54 07/23/2017 [facility] CBC/DIFF MCV 97 82 - 92 07/23/2017 [facility] CBC/DIFF MCH 33.3 27 - 31 07/23/2017 [facility] CBC/DIFF MCHC 34.2 32 - 36 07/23/2017 [facility] CBC/DIFF RDW 47.2 35.1 - 43.9 07/23/2017 [facility] CBC/DIFF Platelet 233 150 - 400 07/23/2017 [facility] CBC/DIFF Mean Platelet Volume 9.7 9.4 - 12.4 07/23/2017 [facility] CBC/DIFF Percent NRBC 0.0 07/23/2017 [facility] CBC/DIFF Absolute NRBC 0.00 07/23/2017 [facility] CBC/DIFF Neutrophil 60.1 34 - 67.9 07/23/2017 [facility] CBC/DIFF Lymphocyte 24.4 21.8 - 50 07/23/2017 [facility] CBC/DIFF Monocyte 12.2 5.3 - 12 07/23/2017 [facility] CBC/DIFF Eosinophil 2.2 0.8 - 5 07/23/2017 [facility] CBC/DIFF Basophil 0.6 0.2 - 1.2 07/23/2017 [facility] CBC/DIFF Pct Immat Gran 0.5 0.0 - 0.5 07/23/2017 [facility] CBC/DIFF Neutrophil, Abs 4.63 1.78 - 5.36 07/23/2017 [facility] CBC/DIFF Lymphocyte, Abs 1.88 1.32 - 3.57 07/23/2017 [facility] CBC/DIFF Monocyte, Abs 0.94 0.3 - 0.82 07/23/2017 [facility] CBC/DIFF Eosinophil, Abs 0.17 0.04 - 0.54 07/23/2017 [facility] CBC/DIFF Basophil, Abs 0.05 0.01 - 0.08 07/23/2017 [facility] CBC/DIFF Absol Immat Gran 0.04 0 - 0.03 07/23/2017 [facility] CBC/DIFF Lab Interpretation Abnormal 07/23/2017 [facility] CK CK 865 30 - 223 07/23/2017 [facility] CK Lab Interpretation Abnormal 07/23/2017 [facility] HIV-1/HIV-2 ROUTINE SCREENING HIV-1/HIV-2 Negative NEG 07/23/2017 [facility] LIPASE Lipase 93 11 - 82 07/23/2017 [facility] LIPASE Lab Interpretation Abnormal 07/23/2017 [facility] Automated urine sediment leukocyte count by microscopy (number/high power field) Automated urine sediment leukocyte count by microscopy (number/high power field) <5 0 - 5 04/30/2017 [facility] Bacteria detection in urine sediment by light microscopy Bacteria detection in urine sediment by light microscopy NONE NONE 04/30/2017 [facility] Barbiturates screen, urine Barbiturates screen, urine NEGATIVE NEGATIVE 04/30/2017 [facility] Epithelial cells detection in urine sediment by light microscopy Epithelial cells detection in urine sediment by light microscopy NONE NONE 04/30/2017 [facility] Erythrocytes detection in urine sediment by light microscopy Erythrocytes detection in urine sediment by light microscopy <5 0 - 5 04/30/2017 [facility] Mucus detection in urine sediment by light microscopy Mucus detection in urine sediment by light microscopy FEW RARE 04/30/2017 [facility] Specific gravity of Urine by Test strip Specific gravity of Urine by Test strip 1.010 1.010 - 1.025 04/30/2017 [facility] Urine amphetamines detection by screen method > 1000 ng/mL Urine amphetamines detection by screen method > 1000 ng/mL POSITIVE NEGATIVE 04/30/2017 [facility] Urine benzodiazepines detection by screening method Urine benzodiazepines detection by screening method POSITIVE NEGATIVE 04/30/2017 [facility] Urine cannabinoids detection by screening method Urine cannabinoids detection by screening method NEGATIVE NEGATIVE 04/30/2017 [facility] Urine clarity Urine clarity CLEAR CLEAR 04/30/2017 [facility] Urine cocaine measurement (mass/volume) Urine cocaine measurement (mass/volume) NEGATIVE NEGATIVE 04/30/2017 [facility] Urine color determination Urine color determination YELLOW YELLOW 04/30/2017 [facility] Urine erythrocytes detection Urine erythrocytes detection TRACE NEGATIVE 04/30/2017 [facility] Urine glucose detection Urine glucose detection NEGATIVE NEGATIVE 04/30/2017 [facility] Urine ketones detection by automated test strip Urine ketones detection by automated test strip NEGATIVE NEGATIVE 04/30/2017 [facility] Urine leukocyte esterase detection by dipstick Urine leukocyte esterase detection by dipstick NEGATIVE NEGATIVE 04/30/2017 [facility] Urine methadone screen Urine methadone screen NEGATIVE NEGATIVE 04/30/2017 [facility] Urine nitrite detection Urine nitrite detection NEGATIVE NEGATIVE 04/30/2017 [facility] Urine opiates screening test Urine opiates screening test NEGATIVE NEGATIVE 04/30/2017 [facility] Urine pH measurement by automated test strip Urine pH measurement by automated test strip 5 5 - 7 04/30/2017 [facility] Urine phencyclidine detection by screening method Urine phencyclidine detection by screening method NEGATIVE NEGATIVE 04/30/2017 [facility] Urine protein measurement by test strip (mass/volume) Urine protein measurement by test strip (mass/volume) 1+ NEGATIVE 04/30/2017 [facility] Urine total bilirubin measurement (mass/volume) Urine total bilirubin measurement (mass/volume) NEGATIVE NEGATIVE 04/30/2017 [facility] Urine urobilinogen measurement by test strip (mass/volume) Urine urobilinogen measurement by test strip (mass/volume) 0.2 0.2 - 1 04/30/2017 [facility] Urine Methamphetamines Screen POSITIVE NEGATIVE 04/30/2017 [facility] Activated partial thromboplastin time (aPTT) in platelet poor plasma bycoagulation assay Activated partial thromboplastin time (aPTT) in platelet poor plasma bycoagulation assay 29.2 23.8 - 35.5 04/30/2017 [facility] Automated blood basophil count (count/volume) Automated blood basophil count (count/volume) 0.0 0.0 - 0.1 04/30/2017 [facility] Automated blood basophil count as percentage of total leukocytes Automated blood basophil count as percentage of total leukocytes 0.6 0.0 - 1.0 04/30/2017 [facility] Automated blood eosinophil count Automated blood eosinophil count 0.2 0.0 - 0.4 04/30/2017 [facility] Automated blood eosinophil count as percentage of total leukocytes Automated blood eosinophil count as percentage of total leukocytes 2.5 0.0 - 6.0 04/30/2017 [facility] Automated blood hematocrit (volume fraction) Automated blood hematocrit (volume fraction) 44.9 38.2 - 49.6 04/30/2017 [facility] Automated blood lymphocyte count as percentage ot total leukocytes Automated blood lymphocyte count as percentage ot total leukocytes 37.0 18.0 - 39.1 04/30/2017 [facility] Automated blood monocyte count as percentage of total leukocytes Automated blood monocyte count as percentage of total leukocytes 9.7 4.4 - 11.3 04/30/2017 [facility] Automated blood neutrophil count Automated blood neutrophil count 3.3 2.1 - 6.9 04/30/2017 [facility] Automated blood platelet count (count/volume) Automated blood platelet count (count/volume) 172 140 - 360 04/30/2017 [facility] Automated blood segmented neutrophil count as percentage of total leukocytes Automated blood segmented neutrophil count as percentage of total leukocytes 49.5 38.7 - 80.0 04/30/2017 [facility] Automated erythrocyte mean corpuscular hemoglobin (mass per erythrocyte) Automated erythrocyte mean corpuscular hemoglobin (mass per erythrocyte) 32.0 28 - 32 04/30/2017 [facility] Automated erythrocyte mean corpuscular hemoglobin concentration measurement (mass/volume) Automated erythrocyte mean corpuscular hemoglobin concentration measurement (mass/volume) 35.4 31 - 35 04/30/2017 [facility] Automated erythrocyte mean corpuscular volume Automated erythrocyte mean corpuscular volume 90.3 81 - 99 04/30/2017 [facility] Blood erythrocytes automated count (number/volume) Blood erythrocytes automated count (number/volume) 4.97 4.3 - 5.7 04/30/2017 [facility] Blood hemoglobin measurement (moles/volume) Blood hemoglobin measurement (moles/volume) 15.9 14.0 - 18.0 04/30/2017 [facility] Blood leukocytes automated count (number/volume) Blood leukocytes automated count (number/volume) 6.70 4.8 - 10.8 04/30/2017 [facility] Blood lymphocytes count (number/volume) Blood lymphocytes count (number/volume) 2.5 1.0 - 3.2 04/30/2017 [facility] Blood monocytes automated count (number/volume) Blood monocytes automated count (number/volume) 0.7 0.2 - 0.8 04/30/2017 [facility] Estimated glomerular filtration rate (GFR) determination Estimated glomerular filtration rate (GFR) determination >60 60 04/30/2017 [facility] Free thyroxine index Free thyroxine index 1.8754 1.4 - 3.8 04/30/2017 [facility] Glucose measurement Glucose measurement 187 74 - 118 04/30/2017 [facility] INR in Platelet poor plasma by Coagulation assay INR in Platelet poor plasma by Coagulation assay 1.04 04/30/2017 [facility] [facility] Plasma globulin measurement (mass/volume) Plasma globulin measurement (mass/volume) 4.3 2.3 - 3.5 04/30/2017 [facility] Prothrombin time (PT) in platelet poor plasma by coagulation assay Prothrombin time (PT) in platelet poor plasma by coagulation assay 12.8 11.9 - 14.5 04/30/2017 [facility] Serum or plasma acetaminophen measurement by screening method (mass/volume) Serum or plasma acetaminophen measurement by screening method (mass/volume) <3 10 - 30 04/30/2017 [facility] Serum or plasma alanine aminotransferase measurement (enzymatic activity/volume) Serum or plasma alanine aminotransferase measurement (enzymatic activity/volume) 394 0 - 55 04/30/2017 [facility] Serum or plasma albumin measurement (mass/volume) Serum or plasma albumin measurement (mass/volume) 4.0 3.5 - 5.0 04/30/2017 [facility] Serum or plasma albumin/globulin mass ratio Serum or plasma albumin/globulin mass ratio 0.9 0.8 - 2.0 04/30/2017 [facility] Serum or plasma alkaline phosphatase measurement (enzymatic activity/volume) Serum or plasma alkaline phosphatase measurement (enzymatic activity/volume) 131 40 - 150 04/30/2017 [facility] Serum or plasma anion gap Serum or plasma anion gap 18.9 8 - 16 04/30/2017 [facility] Serum or plasma calcium measurement (mass/volume) Serum or plasma calcium measurement (mass/volume) 8.9 8.4 - 10.2 04/30/2017 [facility] Serum or plasma carbon dioxide, total measurement (moles/volume) Serum or plasma carbon dioxide, total measurement (moles/volume) 22 22 - 29 04/30/2017 [facility] Serum or plasma chloride measurement (moles/volume) Serum or plasma chloride measurement (moles/volume) 98 98 - 107 04/30/2017 [facility] Serum or plasma creatine kinase MB measurement (mass/volume) Serum or plasma creatine kinase MB measurement (mass/volume) 6.40 0 - 5.0 04/30/2017 [facility] Serum or plasma creatine kinase measurement (enzymatic activity/volume) Serum or plasma creatine kinase measurement (enzymatic activity/volume) 446 30 - 200 04/30/2017 [facility] Serum or plasma creatinine measurement (mass/volume) Serum or plasma creatinine measurement (mass/volume) 0.74 0.72 - 1.25 04/30/2017 [facility] Serum or plasma ethanol measurement (mass/volume) Serum or plasma ethanol measurement (mass/volume) 214.6 0.0 - 10.0 04/30/2017 [facility] Serum or plasma lipase measurement (enzymatic activity/volume) Serum or plasma lipase measurement (enzymatic activity/volume) 73 8 - 78 04/30/2017 [facility] Serum or plasma phenytoin measurement (mass/volume) Serum or plasma phenytoin measurement (mass/volume) <0.5 10 - 20 04/30/2017 [facility] Serum or plasma potassium measurement (moles/volume) Serum or plasma potassium measurement (moles/volume) 3.9 3.5 - 5.1 04/30/2017 [facility] Serum or plasma protein measurement (mass/volume) Serum or plasma protein measurement (mass/volume) 8.3 6.5 - 8.1 04/30/2017 [facility] Serum or plasma salicylates measurement (mass/volume) Serum or plasma salicylates measurement (mass/volume) <5.0 0 - 30 04/30/2017 [facility] Serum or plasma sodium measurement (moles/volume) Serum or plasma sodium measurement (moles/volume) 135 136 - 145 04/30/2017 [facility] Serum or plasma thyrotropin measurement by detection limit <=0.005 miu/l (units/volume) Serum or plasma thyrotropin measurement by detection limit <=0.005 miu/l (units/volume) 2.492 0.350 - 4.940 04/30/2017 [facility] Serum or plasma thyroxine (T4) measurement (mass/volume) Serum or plasma thyroxine (T4) measurement (mass/volume) 6.26 4.5 - 10.9 04/30/2017 [facility] Serum or plasma total bilirubin measurement (mass/volume) Serum or plasma total bilirubin measurement (mass/volume) 1.0 0.2 - 1.2 04/30/2017 [facility] Serum or plasma triiodothyronine resin uptake (T3RU) Serum or plasma triiodothyronine resin uptake (T3RU) 29.96 22.5 - 37.0 04/30/2017 [facility] Serum or plasma urea nitrogen measurement (mass/volume) Serum or plasma urea nitrogen measurement (mass/volume) 5 7 - 26 04/30/2017 [facility] Serum or plasma urea nitrogen/creatinine mass ratio Serum or plasma urea nitrogen/creatinine mass ratio 7 6 - 25 04/30/2017 [facility] Serum or plasma valproate measurement (mass/volume) Serum or plasma valproate measurement (mass/volume) <2 50 - 100 04/30/2017 [facility] Troponin I measurement by highly sensitive enzyme immunoassay Troponin I measurement by highly sensitive enzyme immunoassay <0.001 0 - 0.300 04/30/2017 [facility] Red Cell Distribution Width 14.4 11.7 - 14.4 04/30/2017 [facility] IM GRANULOCYTES % 0.7 0.0 - 1.0 04/30/2017 [facility] Absolute Immature Granulocyte (auto 0.05 0 - 0.1 04/30/2017 [facility] Aspartate Amino Transf (AST/SGOT) 399 5 - 34 04/30/2017 [facility] GLUCOSE POC Glucose POC 119 74 - 106 08/27/2016 [facility] GLUCOSE POC Lab Interpretation Abnormal 08/27/2016 [facility] BASIC METABOLIC PANEL CO2 28.8 21 - 32 08/27/2016 [facility] BASIC METABOLIC PANEL Chloride 97 98 - 107 08/27/2016 [facility] BASIC METABOLIC PANEL Potassium 4.1 3.5 - 5.1 08/27/2016 [facility] BASIC METABOLIC PANEL Sodium 136 136 - 145 08/27/2016 [facility] BASIC METABOLIC PANEL Glucose 105 70 - 99 08/27/2016 [facility] BASIC METABOLIC PANEL Urea Nitrogen 7 7 - 18 08/27/2016 [facility] BASIC METABOLIC PANEL Creatinine 0.63 0.6 - 1.3 08/27/2016 [facility] BASIC METABOLIC PANEL Anion Gap 10.2 08/27/2016 [facility] BASIC METABOLIC PANEL Calcium 8.6 8.5 - 10.2 08/27/2016 [facility] BASIC METABOLIC PANEL GFR, Estimated >60 mL/min/1.73 m2 08/27/2016 [facility] BASIC METABOLIC PANEL GFR, Estim, Afr-Am >60 mL/min/1.73 m2 08/27/2016 [facility] BASIC METABOLIC PANEL Lab Interpretation Abnormal 08/27/2016 [facility] CBC WBC 11.0 4.5 - 12 08/27/2016 [facility] CBC RBC 2.92 M/uL 4.60 - 6.20 08/27/2016 [facility] CBC Hemoglobin 9.2 14 - 18 08/27/2016 [facility] CBC Hematocrit 27.6 40 - 54 08/27/2016 [facility] CBC MCV 95 82 - 92 08/27/2016 [facility] CBC MCH 31.5 27 - 31 08/27/2016 [facility] CBC MCHC 33.3 32 - 36 08/27/2016 [facility] CBC RDW 44.8 35.1 - 43.9 08/27/2016 [facility] CBC Platelet 296 150 - 400 08/27/2016 [facility] CBC Mean Platelet Volume 8.9 9.4 - 12.4 08/27/2016 [facility] CBC Percent NRBC 1.2 08/27/2016 [facility] CBC Absolute NRBC 0.13 08/27/2016 [facility] CBC Lab Interpretation Abnormal 08/27/2016 [facility] MAGNESIUM Magnesium 1.9 1.8 - 2.4 08/27/2016 [facility] PHOSPHORUS Phosphorus 4.2 2.5 - 4.9 08/27/2016 [facility] TYPE AND CROSSMATCH (RBCS-LAB) ABO/RH O Positive 08/23/2016 [facility] TYPE AND CROSSMATCH (RBCS-LAB) Antibody Screen Negative 08/23/2016 [facility] TYPE AND CROSSMATCH (RBCS-LAB) Sample Expiration 08/26/2016 08/23/2016 [facility] TYPE AND CROSSMATCH (RBCS-LAB) Unit Number [id number] 08/23/2016 [facility] TYPE AND CROSSMATCH (RBCS-LAB) Blood Component Leuko-poor red cells 08/23/2016 [facility] TYPE AND CROSSMATCH (RBCS-LAB) UNIT DIVISION 0 08/23/2016 [facility] TYPE AND CROSSMATCH (RBCS-LAB) Status of Unit Issued,final 08/23/2016 [facility] TYPE AND CROSSMATCH (RBCS-LAB) Transfusion Status OK to transfuse 08/23/2016 [facility] TYPE AND CROSSMATCH (RBCS-LAB) Crossmatch Result Compatible 08/23/2016 [facility] HGB/HCT Hemoglobin 6.3 14 - 18 08/22/2016 [facility] HGB/HCT Hematocrit 19.5 40 - 54 08/22/2016 [facility] HGB/HCT Lab Interpretation Abnormal 08/22/2016 [facility] ANESTHESIA PERIPHERAL BLOCK <p>Archie Pack Resident ( 08/20/20161:40 PM</p><p>Peripheral Nerve Block</p><p>Block type: other (Quadratus Lumborum)</p><p>Patient location during procedure: pre-op holding</p><p>Start time: 08/20/2016 9:10 AM</p><p>End time: 08/20/2016 9:25 AM& lt;/p><p>Indication: post-op pain management</p><p>Staffing</p><p>Anesthesiologist: MARLENY VARGAS</p>& lt;p>MAGNETO SPECIALIST/Resident: DOLORES PERSAUD</p><p>Pre-procedure Checklist</p><p>Completed: Patient identity confirmed. Surgical consent.< /p><p>Immediately prior to the procedure a time out was called. A time </p><p>out verifies correct patient, procedure, equipment, manager support </ p><p>and site/side marked and Risk, benefits, and alternatives were </p><p>discussed</p><p>Procedure Details</p><p>Patient position: supine</p><p>Prep: ChloraPrep</p><p>Monitoring: blood pressure, continuous pulse ox, EKG and heart </p><p>rate</p><p>Anesthesia laterality: Bilateral.</p><p>Location/Level of Injections: Quadratus Lumborum</p>& lt;p>Injection technique: single shot</p><p>Procedures: ultrasound guided</p><p>Local anesthetic or IV sedation: IV sedation given</p><p>Maximum sterile barrier: antiseptic prep, cap worn, hand hygiene </p><p>performed and mask worn</p><p>Needle</p><p>Needle type: Other (Echogenic ) </p><p>Needle gauge: 22</p><p>Needle localization: ultrasound guidance</p>&am p;lt;p>Assessment</p><p>Injection assessment: local visualized surrounding nerve on </p><p>ultrasound</p><p>Heart rate change: no</p><p>Slow fractionated injection: yes</p><p>Additional Notes</p><p>Bilateral quadratus lumborum blocks placed under ultrasound </p><p>guidance. Bilaterally 20cc injected at quadratus lumborum. </p><p>Patient tolerated well. Exam following block showed decreased </p><p>sensation to cold in expected nerve distributions.</p><p> </p><p> </p><p >Intubation</p><p>Date/Time: 08/20/2016 9:58 AMNo</p><p>Mask assessment: 2 - vent by mask + OA or adjuvant +/- NMBA</p><p>Intubation method: video- assisted</p><p>Laryngoscope size: Mac 3 (Payne blade )</p><p>Number of attempts: 2</p><p>Cricoid pressure: no</p><p>Cords visualized: grade 1</p><p>Post-procedure assessment: chest rise and ETCO2 monitor</p><p>Breath sounds: equal and absent over the epigastrium</p><p>Comments: Intubation with Payne video blade 3.0 by CA-1 with </p><p>placement of 8.0 cuffed ETT on second attempt.ETT secured at 22 </p><p>cm.</p><p> </p> Archie Pack, Resident ( 08/20/20161:40 PMPeripheral Nerve BlockBlock type: other (Quadratus Lumborum)Patient location during procedure: pre-op holdingStart time: 08/20/2016 9:10 AMEnd time: 08/20/2016 9:25 AMIndication: post-op pain managementStaffingAnesthesiologist: MARLENY VARGAS CCRNA/Resident: DOLORES PERSAUDPre-procedure ChecklistCompleted: Patient identity confirmed. Surgical consent.Immediately prior to the procedure a time out was called. A time out verifies correct patient, procedure, equipment, manager support and site/side marked and Risk, benefits, and alternatives were discussedProcedure DetailsPatient position: supinePrep: ChloraPrepMonitoring: blood pressure, continuous pulse ox, EKG and heart rateAnesthesia laterality: Bilateral.Location/Level of Injections: Quadratus LumborumInjection technique: single shotProcedures: ultrasound guidedLocal anesthetic or IV sedation: IV sedation givenMaximum sterile barrier: antiseptic prep, cap worn, hand hygiene performed and mask wornNeedleNeedle type: Other (Echogenic ) Needle gauge: 22Needle localization: ultrasound guidanceAssessmentInjection assessment: local visualized surrounding nerve on ultrasoundHeart rate change: noSlow fractionated injection: yesAdditional NotesBilateral quadratus lumborum blocks placed under ultrasound guidance. Bilaterally 20cc injected at quadratus lumborum. Patient tolerated well. Exam following block showed decreased sensation to cold in expected nerve distributions. IntubationDate/Time: 08/20/2016 9:58 AMNoMask assessment: 2 - vent by mask + OA or adjuvant +/- NMBAIntubation method: video-assistedLaryngoscope size: Mac 3 (Payne blade )Number of attempts: 2Cricoid pressure: noCords visualized: grade 1Post-procedure assessment: chest rise and ETCO2 monitorBreath sounds: equal and absent over the epi gastriumComments: Intubation with Payne video blade 3.0 by CA-1 with placement of 8.0 cuffed ETT on second attempt.ETT secured at 22 cm. 08/20/2016 [facility] INTUBATION <p>Archie Pack Resident (MD 08/20/20161:40 PM</p><p>Peripheral Nerve Block</p><p>Block type: other (Quadratus Lumborum)</p><p>Patient location during procedure: pre-op holding</p><p>Start time: 08/20/2016 9:10 AM</p><p>End time: 08/20/2016 9:25 AM& lt;/p><p>Indication: post-op pain management</p><p>Staffing</p><p>Anesthesiologist: MARLENY VARGAS</p>& lt;p>MAGNETO SPECIALIST/Resident: DOLORES PERSAUD</p><p>Pre-procedure Checklist</p><p>Completed: Patient identity confirmed. Surgical consent.< /p><p>Immediately prior to the procedure a time out was called. A time </p><p>out verifies correct patient, procedure, equipment, manager support </ p><p>and site/side marked and Risk, benefits, and alternatives were </p><p>discussed</p><p>Procedure Details</p><p>Patient position: supine</p><p>Prep: ChloraPrep</p><p>Monitoring: blood pressure, continuous pulse ox, EKG and heart </p><p>rate</p><p>Anesthesia laterality: Bilateral.</p><p>Location/Level of Injections: Quadratus Lumborum</p>& lt;p>Injection technique: single shot</p><p>Procedures: ultrasound guided</p><p>Local anesthetic or IV sedation: IV sedation given</p><p>Maximum sterile barrier: antiseptic prep, cap worn, hand hygiene </p><p>performed and mask worn</p><p>Needle</p><p>Needle type: Other (Echogenic ) </p><p>Needle gauge: 22</p><p>Needle localization: ultrasound guidance</p>&am p;lt;p>Assessment</p><p>Injection assessment: local visualized surrounding nerve on </p><p>ultrasound</p><p>Heart rate change: no</p><p>Slow fractionated injection: yes</p><p>Additional Notes</p><p>Bilateral quadratus lumborum blocks placed under ultrasound </p><p>guidance. Bilaterally 20cc injected at quadratus lumborum. </p><p>Patient tolerated well. Exam following block showed decreased </p><p>sensation to cold in expected nerve distributions.</p><p> </p><p> </p><p >Intubation</p><p>Date/Time: 08/20/2016 9:58 AMNo</p><p>Mask assessment: 2 - vent by mask + OA or adjuvant +/- NMBA</p><p>Intubation method: video- assisted</p><p>Laryngoscope size: Mac 3 (Payne blade )</p><p>Number of attempts: 2</p><p>Cricoid pressure: no</p><p>Cords visualized: grade 1</p><p>Post-procedure assessment: chest rise and ETCO2 monitor</p><p>Breath sounds: equal and absent over the epigastrium</p><p>Comments: Intubation with Payne video blade 3.0 by CA-1 with </p><p>placement of 8.0 cuffed ETT on second attempt.ETT secured at 22 </p><p>cm.</p><p> </p> Archie Pack Resident ( 08/20/20161:40 PMPeripheral Nerve BlockBlock type: other (Quadratus Lumborum)Patient location during procedure: pre-op holdingStart time: 08/20/2016 9:10 AMEnd time: 08/20/2016 9:25 AMIndication: post-op pain managementStaffingAnesthesiologist: MARLENY VARGAS CCRNA/Resident: DOLORES PERSAUDPre-procedure ChecklistCompleted: Patient identity confirmed. Surgical consent.Immediately prior to the procedure a time out was called. A time out verifies correct patient, procedure, equipment, manager support and site/side marked and Risk, benefits, and alternatives were discussedProcedure DetailsPatient position: supinePrep: ChloraPrepMonitoring: blood pressure, continuous pulse ox, EKG and heart rateAnesthesia laterality: Bilateral.Location/Level of Injections: Quadratus LumborumInjection technique: single shotProcedures: ultrasound guidedLocal anesthetic or IV sedation: IV sedation givenMaximum sterile barrier: antiseptic prep, cap worn, hand hygiene performed and mask wornNeedleNeedle type: Other (Echogenic ) Needle gauge: 22Needle localization: ultrasound guidanceAssessmentInjection assessment: local visualized surrounding nerve on ultrasoundHeart rate change: noSlow fractionated injection: yesAdditional NotesBilateral quadratus lumborum blocks placed under ultrasound guidance. Bilaterally 20cc injected at quadratus lumborum. Patient tolerated well. Exam following block showed decreased sensation to cold in expected nerve distributions. IntubationDate/Time: 08/20/2016 9:58 AMNoMask assessment: 2 - vent by mask + OA or adjuvant +/- NMBAIntubation method: video-assistedLaryngoscope size: Mac 3 (Payne blade )Number of attempts: 2Cricoid pressure: noCords visualized: grade 1Post-procedure assessment: chest rise and ETCO2 monitorBreath sounds: equal and absent over the epi gastriumComments: Intubation with Payne video blade 3.0 by CA-1 with placement of 8.0 cuffed ETT on second attempt.ETT secured at 22 cm. 08/20/2016 [facility] HEMOGLOBIN A1C Hemoglobin A1c 9.7 4.3 - 6.1 08/18/2016 [facility] HEMOGLOBIN A1C Est Average Gluc 231.7 08/18/2016 [facility] HEMOGLOBIN A1C Lab Interpretation Abnormal 08/18/2016 [facility] Pathology Reports No Data Provided for This Section Diagnostic Reports Report Value Date Source XRAY ANKLE 3 VIEW MIN IMPRESSION: 1.Plate and screw fixation of comminuted fracture of the distal fibulawith interval placement of a transsyndesmotic screw.2.Transsyndesmotic screw is fractured at its mid shaft. If the report is "FINALIZED" it indicates that the attending/staffradiologist has reviewed the images and agrees with the resident'sinterpretation. Dictated By: Naren Loya MD, 08/20/2018 4:32 PM I have reviewed the study and agree with the findings in this report. Signed By: Meir Carlin MD, 08/20/2018 4:59 PM Left foot radiographs - 3 view(s), 3 imagesLeft ankle radiographs - 3 view(s), 3 images HISTORY:Pain COMPARISON: Left foot and ankle radiographs dated 08/09/2018. DISCUSSION:Bone:Plate and screw fixation of previously described comminuted fracture ofthe distal fibula. Interval placement of transsyndesmotic screw, which is fractured at themid shaft.Interval placement of metallic plate along the medial malleolus.Plantar calcaneal enthesopathy.No aggressive osseous lesion. Joints:The joint spaces are well-maintained.No dislocation. Soft tissues:Soft tissue swelling over the lateral malleolus. Interface, Rad/Mammog In - 08/20/2018 5:04 PM CDTLeft foot radiographs - 3 view(s), 3 images [...] By: Meir Carlin MD, 08/20/2018 4:59 PM 08/20/2018 [facility] XRAY FOOT 3 VIEWS MIN IMPRESSION: 1.Plate and screw fixation of comminuted fracture of the distal fibulawith interval placement of a transsyndesmotic screw.2.Transsyndesmotic screw is fractured at its mid shaft. If the report is "FINALIZED" it indicates that the attending/staffradiologist has reviewed the images and agrees with the resident'sinterpretation. Dictated By: Naren Loya MD, 08/20/2018 4:32 PM I have reviewed the study and agree with the findings in this report. Signed By: Meir Carlin MD, 08/20/2018 4:59 PM Left foot radiographs - 3 view(s), 3 imagesLeft ankle radiographs - 3 view(s), 3 images HISTORY:Pain COMPARISON: Left foot and ankle radiographs dated 08/09/2018. DISCUSSION:Bone:Plate and screw fixation of previously described comminuted fracture ofthe distal fibula. Interval placement of transsyndesmotic screw, which is fractured at themid shaft.Interval placement of metallic plate along the medial malleolus.Plantar calcaneal enthesopathy.No aggressive osseous lesion. Joints:The joint spaces are well-maintained.No dislocation. Soft tissues:Soft tissue swelling over the lateral malleolus. Interface, Rad/Mammog In - 08/20/2018 5:04 PM CDTLeft foot radiographs - 3 view(s), 3 images [...] By: Meir Carlin MD, 08/20/2018 4:59 PM 08/20/2018 [facility] XRAY ANKLE 3 VIEWS - ROUTINE IMPRESSION: 1.No acute radiographic abnormality.2.Status post ORIF of a distal fibular fracture with plate and screwconstruct. No evidence of hardware failure or loosening.3.Stable swelling of the ankle and foot. If the report is "FINALIZED" it indicates that the attending/staffradiologist has reviewed the images and agrees with the resident'sinterpretation. Dictated By: Eliud Atkinson DO, 08/09/2018 6:07 AM I have reviewed the study and agree with the findings in this report. Signed By: Radha Muñiz MD, 08/09/2018 8:59 AM EXAMINATION: XRAY FOOT 3 VIEWS - ROUTINE, XRAY ANKLE 3 VIEWS - ROUTINESIDE: LeftINDICATION: pain COMPARISON: None FINDINGS: BONES:Plate and screw construct along the lateral aspect of the distal fibulafor an underlying incompletely healed comminuted fracture of the distalfibula. Fracture alignment is near anatomic. No evidence of hardware foranterior or loosening. No new fractures. Plantar calcaneal enthesophyte. JOINTS:No malalignment. SOFT TISSUES:Moderate swelling of the ankle and mild swelling of the foot, similar tocomparison study. Interface, Rad/Mammog In - 08/09/2018 9:04 AM CDTEXAMINATION: XRAY FOOT 3 VIEWS - ROUTINE, XRAY [...] By: Radha Muñiz MD, 08/09/2018 8:59 AM 08/09/2018 [facility] XRAY FOOT 3 VIEWS - ROUTINE IMPRESSION: 1.No acute radiographic abnormality.2.Status post ORIF of a distal fibular fracture with plate and screwconstruct. No evidence of hardware failure or loosening.3.Stable swelling of the ankle and foot. If the report is "FINALIZED" it indicates that the attending/staffradiologist has reviewed the images and agrees with the resident'sinterpretation. Dictated By: Eliud Atkinson DO, 08/09/2018 6:07 AM I have reviewed the study and agree with the findings in this report. Signed By: Radha Muñiz MD, 08/09/2018 8:59 AM EXAMINATION: XRAY FOOT 3 VIEWS - ROUTINE, XRAY ANKLE 3 VIEWS - ROUTINESIDE: LeftINDICATION: pain COMPARISON: None FINDINGS: BONES:Plate and screw construct along the lateral aspect of the distal fibulafor an underlying incompletely healed comminuted fracture of the distalfibula. Fracture alignment is near anatomic. No evidence of hardware foranterior or loosening. No new fractures. Plantar calcaneal enthesophyte. JOINTS:No malalignment. SOFT TISSUES:Moderate swelling of the ankle and mild swelling of the foot, similar tocomparison study. Interface, Rad/Mammog In - 08/09/2018 9:04 AM CDTEXAMINATION: XRAY FOOT 3 VIEWS - ROUTINE, XRAY [...] By: Radha Muñiz MD, 08/09/2018 8:59 AM 08/09/2018 [facility] [facility] XRAY TIBIA AND FIBULA 2 VIEWS IMPRESSION: 1.No acute radiographic abnormality of the left tibia, fibula, andankle.2.A plate and screw surgical construct overlies and age-indeterminatenondisplaced fracture of the distal fibular diaphysis with subtle screwlike lucencies at the tips of the second and third screws. However, nofindings to suggest hardware failure. Dictated By: Laura Rodriguez MD, 08/04/2018 1:57 AM I have reviewed the study and agree with the findings in this report. Signed By: Endy Londono MD, 08/04/2018 2:12 AM EXAMINATION:XRAY TIBIA AND FIBULA 2 VIEWS, XRAY ANKLE 2 VIEW MINSIDE: LeftINDICATION: tenderness and warmth COMPARISON:None FINDINGS:BONES:No acute fracture.A plate and screw surgical construct overlies an age- indeterminatenondisplaced fracture of the distal fibular diaphysis. There is chroniclucencies at the tip of the second and third screws however, no findingsto suggest hardware malfunction.A nonspecific osseous opacity posterior to the tibia, possibly apartially avulsed bone fragment.Small plantar calcaneal enthesophyte. JOINTS:No malalignment. SOFT TISSUES:Normal Interface, Rad/Mammog In - 08/04/2018 2:17 AM CDTEXAMINATION: XRAY TIBIA AND FIBULA 2 VIEWS, XRAY [...] By: Endy Londono MD, 08/04/2018 2:12 AM 08/04/2018 [facility] XRAY ANKLE 2 VIEW MIN IMPRESSION: 1.No acute radiographic abnormality of the left tibia, fibula, andankle.2.A plate and screw surgical construct overlies and age-indeterminatenondisplaced fracture of the distal fibular diaphysis with subtle screwlike lucencies at the tips of the second and third screws. However, nofindings to suggest hardware failure. Dictated By: Laura Rodriguez MD, 08/04/2018 1:57 AM I have reviewed the study and agree with the findings in this report. Signed By: Endy Londono MD, 08/04/2018 2:12 AM EXAMINATION:XRAY TIBIA AND FIBULA 2 VIEWS, XRAY ANKLE 2 VIEW MINSIDE: LeftINDICATION: tenderness and warmth COMPARISON:None FINDINGS:BONES:No acute fracture.A plate and screw surgical construct overlies an age- indeterminatenondisplaced fracture of the distal fibular diaphysis. There is chroniclucencies at the tip of the second and third screws however, no findingsto suggest hardware malfunction.A nonspecific osseous opacity posterior to the tibia, possibly apartially avulsed bone fragment.Small plantar calcaneal enthesophyte. JOINTS:No malalignment. SOFT TISSUES:Normal Interface, Rad/Mammog In - 08/04/2018 2:17 AM CDTEXAMINATION: XRAY TIBIA AND FIBULA 2 VIEWS, XRAY [...] By: Endy Londono MD, 08/04/2018 2:12 AM 08/04/2018 [facility] CT ABDOMEN AND PELVIS CONTRAST IMPRESSION: 1. Mild nonspecific inflammatory changes of the subcutaneous fatadjacent to midline laparotomy scar related to prior hernia repairs. 2. Possible tiny recurrent ventral abdominal hernia without evidence offatstrangulation or focal inflammation. Dictated By: Ever Lopez MD, 07/23/2017 7:01 PM I have reviewed the study and agree with the findings in this report. Signed By: Nahum Lucio DO, 07/23/2017 8:55 PM EXAM: CT Abdomen and Pelvis WITH contrastINDICATION: abdominal pain, many prior surgeries, bleeding fromumbilicusCOMPARISON: CT abdomen pelvis 08/17/2016TECHNIQUE:Abdomen and pelvis were scanned utilizing a multidetector helicalscanner from the diaphragm to the ischial tuberosities afteradministration of IV contrast. Coronal and sagittal reformations wereobtained. Routine protocol is performed. IV CONTRAST: 150 mL of Omnipaque 300ORAL CONTRAST: NoneRADIATION DOSE: Total DLP: 1078 mGy*cmEstimated effective dose: DLP x 0.015 mSv COMPLICATIONS: None FINDINGS: LINES and TUBES: LOWER TH ORAX: Normal. HEPATOBILIARY: No focal hepatic lesions.No biliary ductal dilatation. Diffusely decreased attenuation of the liver, compatible with hepaticsteatosis. GALLBLADDER: No radiopaque stones or sludge. No wall thickening. SPLEEN: No splenomegaly. PANCREAS: No focal masses or ductal dilatation. ADRENALS: No adrenal nodules. KIDNEYS/URETERS: Kidneys enhance symmetrically. No hydronephrosis. Nocystic or solid mass lesions. No stones. GI TRACT: No abnormal distention, wall thickening, or evidence of bowelobstruction.Appendix is normal. PELVIC ORGANS/BLADDER: Unremarkable. LYMPH NODES: No lymphadenopathy. VESSELS: Unremarkable. PERITONEUM / RETROPERITONEUM: No free air or fluid. BONES: Unremarkable. SOFT TISSUES: Midline laparotomy scars related to prior hernia repairs. Approximately 1 cm anterior bulging of normal appearing mesenteric fatat the site of prior supraumbilical hernia may represent smallrecurrence (image 90, series 4)Moderate inflammatory stranding of the subcutaneous soft tissuesadjacent to a scar at midline. Mild periumbilical skin thickening. Interface, Rad/Mammog In - 07/23/2017 9:00 PM CDT EXAM: CT Abdomen and Pelvis WITH contrast INDICATION: abdominal pain, many prior surgeries, bleeding from umbilicus COMPARISON: CT abdomen pelvis 08/17/2016 TECHNIQUE: Abdomen and pelvis were scanned utilizing a multidetector helical scanner from the diaphragm to the ischial tuberosities after administration of IV contrast. Coronal and sagittal reformations were obtained. Routine protocol is performed. IV CONTRAST: 150 mL of Omnipaque 300 ORAL CONTRAST: None RADIATION DOSE: Total DLP: 1078 mGy*cm Estimated effective dose: DLP x 0.015 mSv COMPLICATIONS: None FINDINGS: LINES and TUBES: LOWER THORAX: Normal. HEPATOBILIARY: No focal hepatic lesions. No biliary ductal dilatation. Diffusely decreased attenuation of the liver, compatible with hepatic steatosis. GALLBLADDER: No radiopaque stones or sludge. No wall thickening. SPLEEN: No splenomegaly. PANCREAS: No focal masses or ductal dilatation. ADRENALS: No adrenal nodules. KIDNEYS/URETERS: Kidneys enhance symmetrically. No hydronephrosis. No cystic or solid mass lesions. No stones. GI TRACT: No abnormal distention, wall thickening, or evidence of bowel obstruction. Appendix is normal. PELVIC ORGANS/BLADDER: Unremarkable. LYMPH NODES: No lymphadenopathy. VESSELS: Unremarkable. PERITONEUM / RETROPERITONEUM: No free air or fluid. BONES: Unremarkable. SOFT TISSUES: Midline laparotomy scars related to prior hernia repairs. Approximately 1 cm anterior bulging of normal appearing mesenteric fat at the site of prior supraumbilical hernia may represent small recurrence (image 90, series 4) Moderate inflammatory stranding of the subcutaneous soft tissues adjacent to a scar at midline. Mild periumbilical skin thickening. IMPRESSION IMPRESSION: 1. Mild nonspecific inflammatory changes of the subcutaneous fat adjacent to midline laparotomy scar related to prior hernia repairs. 2. Possible tiny recurrent ventral abdominal hernia without evidence of fat strangulation or focal inflammation. Dictated By: Ever Lopez MD, 07/23/2017 7:01 PM I have reviewed the study and agree with the findings in this report. Signed By: Nahum Lucio DO, 07/23/2017 8:55 PM 07/23/2017 [facility] XRAY ABDOMEN (KUB) IMPRESSION:1.Nonobstructive bowel gas pattern.2.Moderate amount of stool seen in the colon. A "PRELIMINARY" report was made available via [employer] at the time ofdictation by the resident indicated below. If the report is described as"FINALIZED" it indicates the attending/staff radiologist below hasreviewed the images and agrees with the resident's interpretation. Dictated By: Ashly De León MD, 08/23/2016 1:55 PM I have reviewed the study and agree with the findings in this report. Signed By: Endy Londono MD, 08/23/2016 4:39 PM EXAM:XRAY ABDOMEN (KUB) FETOGRAM INDICATION: abdominal pa in COMPARISON:CT abdomen and pelvis on 08/17/2016. DISCUSSION: LINES/TUBES: Surgical graham seen overlying the abdomen. 2 drainagetubes are present, with distal tips projected on the upper abdomen. BOWEL: Nonobstructive bowel gas pattern.No pneumoperitoneum. Moderateamount of stool in colon. OTHER: No abnormal abdominal calcifications. No mass effect ororganomegaly. BONES:Unremarkable. Interface, Rad/Mammog In - 08/23/2016 4:44 PM CDTEXAM: XRAY ABDOMEN (KUB) FETOGRAM INDICATION: abdominal pain COMPARISON: CT abdomen and pelvis on 08/17/2016. DISCUSSION: LINES/TUBES: Surgical graham seen overlying the abdomen. 2 drainage tubes are present, with distal tips projected on the upper abdomen. BOWEL: Nonobstructive bowel gas pattern. No pneumoperitoneum. Moderate amount of stool in colon. OTHER: No abnormal abdominal calcifications. No mass effect or organomegaly. BONES: Unremarkable. IMPRESSION: 1. Nonobstructive bowel gas pattern. 2. Moderate amount of stool seen in the colon. A "PRELIMINARY" report was made available via [employer] at the time of dictation by the resident indicated below. If the report is described as "FINALIZED" it indicates the attending/staff radiologist below has reviewed the images and agrees with the resident's interpretation. Dictated By: Ashly De León MD, 08/23/2016 1:55 PM I have reviewed the study and agree with the findings in this report. Signed By: Endy Londono MD, 08/23/2016 4:39 PM 08/23/2016 [facility] Consultation Notes No Data Provided for This Section Discharge Summaries No Data Provided for This Section History and Physicals No Data Provided for This Section Vital Signs Vital Sign Value Date Comments Source Systolic (mm Hg) 142 08/27/2018 [facility] Diastolic (mm Hg) 90 08/27/2018 [facility] Heart Rate 108 08/27/2018 [facility] Temperature Oral (F) 37.17 Calista 08/27/2018 [facility] Respitory Rate 16 08/27/2018 [facility] Height 172.7 cm 08/21/2018 [facility] Weight 104.327 08/21/2018 [facility] Systolic (mm Hg) 163 07/24/2017 [facility] Diastolic (mm Hg) 105 07/24/2017 [facility] Heart Rate 92 07/24/2017 [facility] Temperature Oral (F) 37 Calista 07/24/2017 [facility] Respitory Rate 18 07/24/2017 [facility] Height 170.2 cm 08/18/2016 [facility] Weight 102.468 08/18/2016 [facility] BMI Calculated 35.38 08/18/2016 [facility] Encounters Location Location Details Encounter Type Encounter Number Reason For Visit Attending Provider ADM Date DC Date Status Source 5F [facility] Encounter [id number] Periumbilical pain Hernia Ventral incisional hernia Post-op pain Santiago Villafuerte MD 08/17/2016 08/27/2016 [facility] 4F Post Anesthesia 1 (PAC1) Anesthesia Event [id number] Nahomi Aguilar 08/19/2016 [facility] 4F Post Anesthesia 1 (PAC1) Surgery [id number] Rohit Reza MD 08/20/2016 [facility] Office Visit [id number] Ventral incisional hernia Jose Yu MD 09/12/2016 09/12/2016 [facility] Registered Emergency Room [id number] ASHLY TALAMANTES MD 04/30/2017 [facility] ([facility] [id number] ETOH abuse Norberto Garcia MD 07/18/2017 07/18/2017 [facility] Emergency [place] [facility] [id number] Generalized abdominal pain Hepatomegaly Jaundice Heroin withdrawal Alcohol withdrawal syndrome, with delirium Brody Jaimes MD 07/23/2017 07/24/2017 [facility] Travel [id number] 08/03/2018 [facility] Emergency [place] [facility] [id number] Darwin Teixeira MD 08/04/2018 08/04/2018 [facility] Travel [id number] 08/09/2018 [facility] Emergency [place] [facility] [id number] Sergei Lima MD 08/09/2018 08/09/2018 [facility] Travel [id number] 08/20/2018 [facility] 3A [facility] Encounter [id number] Latasha Murillo MD 08/20/2018 08/26/2018 [facility] 4F Post Anesthesia 1 (PAC1) BT Surgery [id number] Jamie Castle MD 08/21/2018 08/21/2018 [facility] 4F Post Anesthesia 1 (PAC1) BT Anesthesia Event [id number] Juanjo Danielson ResidentCA 08/21/2018 08/21/2018 [facility] [id number] 08/27/2018 08/28/2018 [facility] Procedures Procedure Code Date Perfomer Comments Source CONSULT CLINICAL CASE MANAGEMENT (RN/SW) [id number] 08/26/2018 [facility] [place] GLUCOSE POC 90295 08/26/2018 [facility] CONSULT CLINICAL CASE MANAGEMENT (RN/SW) 400059 08/26/2018 [facility] [place] [facility] PT/INR/PTT 73399 08/26/2018 [facility] MAGNESIUM 84168 08/26/2018 [facility] PHOSPHORUS 97625 08/26/2018 [facility] CBC (WITHOUT DIFFERENTIAL) 90203 08/26/2018 [facility] BASIC METABOLIC PANEL 12890 08/26/2018 [facility] GLUCOSE POC 72271 08/26/2018 [facility] [place] GLUCOSE POC 85180 08/26/2018 [facility] [place] GLUCOSE POC 24579 08/25/2018 [facility] [place] GLUCOSE POC 73450 08/25/2018 [facility] [place] PT/INR/PTT 59013 08/25/2018 [facility] MAGNESIUM 29250 08/25/2018 [facility] PHOSPHORUS 91307 08/25/2018 [facility] CBC (WITHOUT DIFFERENTIAL) 98542 08/25/2018 [facility] BASIC METABOLIC PANEL 91083 08/25/2018 [facility] GLUCOSE POC 50313 08/25/2018 [facility] GLUCOSE POC 37113 08/25/2018 [facility] GLUCOSE POC 45818 08/24/2018 [facility] [place] GLUCOSE POC 97019 08/24/2018 [facility] [place] PT/INR/PTT 19249 08/24/2018 [facility] MAGNESIUM 60760 08/24/2018 [facility] PHOSPHORUS 53278 08/24/2018 [facility] CBC (WITHOUT DIFFERENTIAL) 23524 08/24/2018 [facility] BASIC METABOLIC PANEL 19842 08/24/2018 [facility] GLUCOSE POC 24837 08/24/2018 [facility] [place] GLUCOSE POC 49910 08/24/2018 [facility] [place] GLUCOSE POC 44642 08/23/2018 [facility] [place] GLUCOSE POC 35431 08/23/2018 [facility] [place] VANCOMYCIN, TROUGH 73587 08/23/2018 [facility] 40260 08/23/2018 [facility] MAGNESIUM 53468 08/23/2018 [facility] PHOSPHORUS 84127 08/23/2018 [facility] CBC (WITHOUT DIFFERENTIAL) 94390 08/23/2018 [facility] [place] BASIC METABOLIC PANEL 97829 08/23/2018 [facility] [place] IRON PROFILE 70909 08/23/2018 [facility] FERRITIN 81201 08/23/2018 [facility] GLUCOSE POC 84364 08/23/2018 [facility] [place] IP CONSULT WITH INSIGHT 71400 08/23/2018 [facility] [place] [facility] GLUCOSE POC 86557 08/23/2018 [facility] [place] GLUCOSE POC 93313 08/22/2018 [facility] [place] NUTRITION CONSULT ASSESSMENT 47070 08/22/2018 [facility] [place] [facility] GLUCOSE POC 97142 08/22/2018 [facility] [place] [facility] HEMOGLOBIN A1C 06214 08/22/2018 [facility] [place] PT/INR/PTT 73590 08/22/2018 [facility] MAGNESIUM 39660 08/22/2018 [facility] PHOSPHORUS 68103 08/22/2018 [facility] CBC/DIFF 77142 08/22/2018 [facility] [place] BASIC METABOLIC PANEL 34218 08/22/2018 [facility] CBC 45465 08/22/2018 [facility] GLUCOSE POC 97992 08/22/2018 [facility] [place] [facility] GLUCOSE POC 37855 08/22/2018 [facility] IP CONSULT TO PHYSICAL THERAPY [id number] 08/22/2018 [facility] WOUND VAC SYSTEM 38232 08/22/2018 [facility] AFB STAIN AND CULTURE 30005 08/21/2018 [facility] [employer] STAIN AND CULTURE 37949 08/21/2018 [facility] ANAEROBE CULTURE 28002 08/21/2018 [facility] FUNGUS STAIN AND CULTURE 09928 08/21/2018 [facility] TISSUE CULTURE AND GRAM STAIN 12997 08/21/2018 [facility] ANAEROBE CULTURE 45705 08/21/2018 [facility] FUNGUS STAIN AND CULTURE 24022 08/21/2018 [facility] TISSUE CULTURE AND GRAM STAIN 99247 08/21/2018 [facility] INTUBATION [id number] 08/21/2018 [facility] ORTHO - I&D [IRRIGATION AND DEBRIDEMENT], EXTREMITY 08/21/2018 [facility] INFUSION PUMP [id number] 08/21/2018 [facility] CONSULT CLINICAL CASE MANAGEMENT (RN/SW) 919266 08/21/2018 [facility] IP CONSULT WITH INSIGHT 29873 08/21/2018 [facility] PT/INR/PTT 43829 08/21/2018 [facility] COMPREHENSIVE METABOLIC PANEL 49991 08/21/2018 [facility] VITAMIN B12 13883 08/21/2018 [facility] FOLIC ACID [id number] 08/21/2018 [facility] MAGNESIUM 55880 08/21/2018 [facility] PHOSPHORUS 89939 08/21/2018 [facility] HEPATITIS PANEL 51834 08/21/2018 [facility] IP CONSULT TO PHYSICAL THERAPY [id number] 08/21/2018 [facility] 12 LEAD EKG 26095 08/21/2018 [facility] TROPONIN I POC 36274 08/21/2018 [facility] AMMONIA 10362 08/21/2018 [facility] VALPROIC ACID [id number] 08/21/2018 [facility] OSMOLALITY,SERUM 03587 08/21/2018 [facility] ALCOHOL, MEDICAL USE ONLY 26000 08/21/2018 [facility] ABG POC 67022 08/21/2018 [facility] XRAY ANKLE 3 [place] 27360 08/21/2018 [facility] XRAY FOOT 3 VIEWS MIN 44440 08/21/2018 [facility] C-REACTIVE PROTEIN HIGH SENSITIVITY (CRP-HS) 28372 08/21/2018 [facility] SED RATE 66987 08/21/2018 [facility] BMP POC 21596 08/20/2018 Unknown [facility] CBC/DIFF 67166 08/20/2018 [facility] CBC 20031 08/20/2018 [facility] CBC/DIFF 33164 08/09/2018 [facility] LIVER PROFILE 83903 08/09/2018 [facility] CBC 73840 08/09/2018 [facility] BMP POC 58654 08/09/2018 [facility] ABG POC 81110 08/09/2018 [facility] XRAY ANKLE 3 VIEWS - ROUTINE 93309 08/09/2018 [facility] XRAY FOOT 3 VIEWS - ROUTINE 05972 08/09/2018 [facility] XRAY TIBIA AND FIBULA 2 VIEWS 22097 08/04/2018 [facility] XRAY ANKLE 2 VIEW MIN 01750 08/04/2018 [facility] BMP POC 25268 08/04/2018 Unknown [facility] CBC (WITHOUT DIFFERENTIAL) 17911 08/04/2018 [facility] ACETAMINOPHEN 21511 08/04/2018 [facility] SALICYLATE 73951 08/04/2018 [facility] LIVER PROFILE 47983 08/04/2018 [facility] PT/INR 90959 08/04/2018 [facility] ALCOHOL, MEDICAL USE ONLY 79999 08/04/2018 [facility] OPEN VENTRAL HERNIA REPAIR WITH PROCEED MESH, EXTENSIVE LYSIS OF ADHESIONS. 08/20/2016 [facility] Assessment and Plan No Data Provided for This Section Plan of Care Plan of Care Date Source DM HGBA1C (Yearly) 08/23/2019 [facility] IMM Influenza Seasonal Nov to April (>/=19 yrs) 11/18/2018 [facility] Upcoming EncountersDateTypeSpecialtyCare TeamDescription 09/09/2018 Office Visit Family Practice [facility] [address] [phone] Casimiro Julien [address] [place], [place] [phone] (Fax) Health MaintenanceDue DateLast DoneComments DM Foot Exam (Yearly) 1998 DM Microalbumin Urine Scrn (Yearly) 1998 DM Retinal Exam (Yearly) 1998 IMM Influenza Seasonal Oct to April (>/=19 yrs) 11/18/2018 DM HGBA1C (Yearly) 08/23/2019 08/22/2018, 08/18/2016 08/28/2018 [facility] Not on file 08/09/2017 [facility] Not on file 08/08/2017 [facility] Discharge Date 04/30/17 7:14pm Disposition ELOPED Condition at Discharge Other Forms Provided Work/School Excuse Prescriptions See Medication Section 04/30/2017 [facility] DM Foot Exam (Yearly) 1998 [facility] Social History Social History Date Source Tobacco UseTypesPacks/DayYears UsedDate Current Every Day Smoker Smokeless Tobacco: Never Used Comments: depending how much i can get Alcohol UseDrinks/Weekoz/WeekComments Yes last ETOh 08/18/18 1/2 a gallon of wisky per day Sex Assigned at BirthDate Recorded Not on file 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 08/21/2018 [facility] Smoking Status Start Date Stop Date Current every day smoker 04/30/2017 [facility] Family History Value Date Source RelationNameStatusComments Father Other 08/28/2018 [facility] Advance Directives Order Name Results Value Date Source Advance Directives Advance Directives Latest Code Status on FileCode StatusDate ActivatedDate InactivatedComments Full Code 08/20/2018 9:50 PM 08/26/2018 2:45 PM Full Code 08/18/2016 4:12 AM 08/27/2016 6:31 PM 08/28/2018 [facility] Advance Directives Advance Directives Directive Response Recorded Date/Time Does the patient have an advance directive? No 06/08/16 12:15pm If yes, is advance directive on file with [facility]? No 06/08/16 12:15pm If not on file with [facility] will patient provide a copy? No 06/08/16 12:15pm 04/30/2017 [facility] Functional Status No Data Provided for This Section
--- OUTSIDE RECORDS SUMMARY | 2018-09-28 19:01 | XMS REPORT | Clinical Summary ---
Author Author [facility] Organization [facility] Address Unknown Phone Unavailable Care Team Providers Care Plastic Top Assembler Name Role Phone PCP Unavailable Allergies Comments [...] for wound infection, initial 41 days. encounter 09/15/2018 Active acetaminophen-codeine Take 1 tablet 20 tablet 0 (TYLENOL/CODEINE #3) by mouth 2 9 300-30 mg per times daily tabletIndications: as needed for Hardware complicating up to 20 days wound infection, initial for Pain. encounter Active levothyroxine (SYNTHROID) Take 1 tablet [...] every 8 hours as needed for Nausea. 08/26/2018 Discontinued amLODIPine (NORVASC) 10 Take 1 [...] work 08/21/2018 Problems related to release from long term 08/21/2018 Uninsured 08/21/2018 Deconditioned low back 08/21/2018 Homelessness 08/21/2018 Surgical site infection 08/20/2018 Overview: Added automatically from request for surgery [id number] Alcohol intoxication 07/17/2017 ETOH abuse 07/17/2017 Ventral incisional hernia s/p open repair with mesh 08/1808/18/2016 Periumbilical pain 08/17/2016 Hernia Generalized abdominal pain Jaundice Accidental acetaminophen overdose Cellulitis of left lower extremity Altered level of consciousness Resolved Problems Problem Noted Date Resolved Date Alcohol withdrawal syndrome with perceptual disturbance 08/20/2018 08/26/2018 Left ankle pain 08/26/2018 Encounters Care Team Description Date Type Specialty 08/27/2018 Emergency Emergency Medicine Juanjo Danielson ResidentPA 08/21/2018 Anesthesia Event Jamie Castle MD Irrigation [...] Emergency Medicine - 08/04/2018 08/03/2018 Travel after 08/27/2017 Family History Relation Name Status Comments Father [...] Treatment Care Team Description Date Type Specialty Nora Hand MD [facility] [address] [place] [address] Casimiro Julien MD [address] [place] [address] 09/09/2018 Office Visit Family Practice Health Maintenance Due Date Last Done Comments DM Foot Exam (Yearly) 1998 DM Microalbumin Urine 1998 Scrn (Yearly) DM Retinal Exam (Yearly) 1998 IMM Influenza Seasonal 11/18/2018Nov to April (>/=19 yrs) DM HGBA1C (Yearly) 08/23/2019 08/22/2018, 08/18/2016 Implants Device Identifier Shelf Expiration Date Model / Serial / Lot Implanted Type Area Manufactur er 11/17/2017 [id number] / / [id number] Proceed Surgical Mesh Anterior: Implanted: Qty: 1 on 08/20/2016 by Rohit Nicole MD at [facility] Procedures Comments Procedure Name Priority Date/Time Associated [...] STAT 08/03/2018 DIFFERENTIAL) 10:44 PM CDT after 08/27/2017 Results * GLUCOSE POC (08/26/2018 9:01 AM CDT) Only the most recent of 19 results within the time period is included. Pathologist [facility] Glucose POC 187 (H) 74 - 106 mg/dL [facility] Specimen Blood Performing Organization Address [facility] Phone Number [facility] [address] [place] [address] * PT/INR/PTT (08/26/2018 4:26 AM CDT) Only the most recent of 6 results within the time period is included. Pathologist [facility] PT 13.6 11.8 - 15.0 Seconds [facility] INR 1.1 Refer to INR ranges [facility] Comment: LABORATORY 2.0 - 3.0 for moderate intensity anticoagulation 2.5 - 3.5 for high intensity anticoagulation PTT 30.2 23.6 - 36.4 Seconds [facility] Comment: LABORATORY The recommended therapuetic range is an APTT 61-103 seconds which corresponds to 0.3-0.7 anti Xa u/ml. Specimen Blood Performing Organization Address [facility] Phone Number [facility] [address] [place] [address] * PHOSPHORUS (08/26/2018 4:26 AM CDT) Only the most recent of 6 results within the time period is included. Pathologist [facility] Phosphorus 4.9 2.5 - 5.0 mg/dL [facility] Specimen Blood Performing Organization Address [facility] Phone Number [facility] [address] [place] [address] * MAGNESIUM (08/26/2018 4:26 AM CDT) Only the most recent of 6 results within the time period is included. Magnesium 1.8 (L) 1.9 - 2.7 mg/dL [facility] Specimen Blood Performing Organization Address [facility] Phone Number [facility] [address] [place], [place] [id number] * CBC (WITHOUT DIFFERENTIAL) (08/26/2018 4:26 AM [...] [facility] Specimen Blood Performing Organization Address [facility] Phone Number [facility] [address] [place] [address] * BASIC METABOLIC PANEL (08/26/2018 [...] Specimen Blood Performing Organization Address [facility] Phone Number [facility] [address], [place] [id number] * FERRITIN (08/23/2018 1:57 AM CDT) Ferritin 51.2 23.9 - 336.2 ng/mL [facility] Specimen Blood Performing Organization Address [facility] Phone Number [facility] [address] [place] [address] * VANCOMYCIN, TROUGH (08/23/2018 1:57 AM CDT) Vancomycin, 8.4 (L) 10.0 - 20.0 ug/mL [facility] Trough [facility] Specimen Blood Performing Organization Address [facility] Phone Number [facility] [address] [place] [address] * IRON PROFILE (08/23/2018 1:57 AM CDT) Iron 16 (L) 50 - 212 ug/dL [facility] TIBC 477 (H) 250 - 450 ug/dL [facility] % Iron Sat 3 % [facility] Transferrin 340.70 203.00 - 362.00 [facility] mg/dL [facility] Specimen Blood Performing Organization Address [facility] Phone Number [facility] [address] [place] [address] * CBC (08/22/2018 2:14 AM CDT) Only [...] admission [facility] Performing Organization Address [facility] Phone Number [facility] [address] [place] [address] * HEMOGLOBIN A1C (08/22/2018 2:14 AM CDT) Hemoglobin A1c 5.9 % [facility] Estimated 123 (H) 70 - 110 mg/dL [facility] Average Glucose LABORATORY Specimen Blood Narrative Performed At once per hospital admission [facility] Performing Organization Address [facility] Phone Number [facility] [address] [place] [address] * TISSUE CULTURE AND GRAM STAIN (08/21/2018 10:59 AM CDT) Only the most recent of 2 results within the time period is included. Tissue Culture METHICILLIN RESISTANT [facility] STAPHYLOCOCCUS AUREUS (AA) LABORATORY Tissue Culture ACINETOBACTER BAUMANNII (A) [facility] Gram Stain 2+ WBCs [facility] Gram Stain No organisms seen [facility] Specimen Tissue - Joint, ankle, left [...] ug/mL: Susceptible Acinetobacter baumannii Performing Organization Address [facility] Phone Number [facility] [address] [place] [address] * ANAEROBE CULTURE (08/21/2018 10:59 AM CDT) Only the most recent of 2 results within the time period is included. Anaerobe No anaerobes isolated in 5 [facility] Culture days LABORATORY Specimen Tissue - Joint, ankle, left Performing Organization Address [facility] Phone Number [facility] [address] [place] [address] * COMPREHENSIVE METABOLIC PANEL (08/21/2018 3:16 AM CDT) Sodium 138 136 - 145 mmol/L [facility] Potassium 4.1 3.5 - 5.1 mmol/L [...] [facility] Specimen Blood Performing Organization Address [facility] Phone Number [facility] [address] [place] [address] * FOLIC ACID (08/21/2018 3:16 AM CDT) Pathologist [facility] Folic Acid 15.1 5.9 - 24.8 ng/mL [facility] Specimen Blood Performing Organization Address [facility] Phone Number [facility] [address] [place] [address] * VITAMIN B12 (08/21/2018 3:16 AM CDT) Pathologist [facility] Vitamin B12 270 See comment pg/mL [facility] Comment: [facility] Normal: 180-914 pg/mL Intermittent: 145-180 pg/mL Deficient: <=145.0 pg/mL Specimen Blood Performing Organization Address [facility] Phone Number [facility] [address] [place] [address] * HEPATITIS PANEL (08/21/2018 3:16 AM CDT) [facility] Hep C Vir Ab Negative Negative [facility] IgG [facility] Hep B Surface Negative Negative [facility] Ag [facility] Hep A Vir Ab Negative Negative [facility] IgM [facility] Hep B Core Ab Negative Negative [facility] IgM [facility] Specimen Blood Performing Organization Address [facility] Phone Number [facility] [address] [place] [address] * 12 LEAD EKG (08/20/2018 5:01 PM CDT) [facility] [address] [facility] Test Date:2018-08-20 Pat [facility] Department: Room: [place] [id number] Gender: M Head Setter: [id number] [birth year] Requested By: LATASHA Alexander Order Number: [id number] Reading MD: Bhavna Arceo M.D. Measurements Intervals [place] Rate: 93 P:70 [place]: 148 QRS: 60 QRSD: 87 T:45 QT: 378 QTc:472 Interpretive Statements SINUS RHYTHM Reviewed by Electronically Signed On 08-20-2018 17:53:26 CDT by Bhavna Arceo M.D. Specimen Performing Organization Address [facility] Phone Number [place] * TROPONIN I POC (08/20/2018 4:57 PM CDT) [facility] Troponin POC 0.01 0.00 - 0.08 ng/mL [facility] Specimen Blood, venous Performing Organization Address [facility] Phone Number [facility] [address] [place] [address] * VALPROIC ACID (08/20/2018 4:45 PM CDT) [facility] Valproic Acid 19.4 (L) 50.0 - 100.0 ug/mL [facility] Specimen Blood Performing Organization Address [facility] Phone Number [facility] [address] [place] [address] * OSMOLALITY,SERUM (08/20/2018 4:45 PM CDT) Osmolality, 290 266 - 300 mOsm/kg [facility] Serum [facility] Specimen Blood Performing Organization Address [facility] Phone Number [facility] [address] [place] [address] * AMMONIA (08/20/2018 4:45 PM CDT) Ammonia 74.0 (H) 16.0 - 53.0 umol/L [facility] Specimen Blood Performing Organization Address [facility] Phone Number [facility] [address] [place] [address] * ALCOHOL, MEDICAL USE ONLY (08/20/2018 4:45 PM CDT) Only the most recent of 2 results within the time period is included. ALCOHOL, SERUM 0.01 <0.10 g/dL [facility] - RESULT ([facility]) LABORATORY Specimen Blood Performing Organization Address [facility] Phone Number [facility] [address] [place] [address] * ABG POC (08/20/2018 4:04 PM CDT) [...] LABORATORY Specimen Blood, arterial Performing Organization Address [facility] Phone Number [facility] [address] [place] [address] * XRAY FOOT 3 VIEWS MIN (08/20/2018 [...] foot radiographs - 3 view(s), 3 images SMS Left ankle radiographs - 3 view(s), 3 [...] foot radiographs - 3 view(s), 3 images SMS Left ankle radiographs - 3 view(s), 3 [...] MD, 08/20/2018 4:59 PM Performing Organization Address [facility] Phone Number SMS * C-REACTIVE PROTEIN HIGH SENSITIVITY (CRP-HS) (08/20/2018 3:56 PM CDT) CRP, High 21.6 (H) <1.0 mg/dL [facility] Sensitivity [facility] Specimen Blood Performing Organization Address [facility] Phone Number [facility] [address] [place] [address] * SED RATE (08/20/2018 3:56 PM CDT) Sed Rate 40 (H) 0-<15 mm/Hr [facility] Specimen Blood Performing Organization Address [facility] Phone Number [facility] [address] [place] [address] * BMP POC (08/20/2018 11:20 AM CDT) [...] LABORATORY Specimen Blood, venous Performing Organization Address [facility] Phone Number [facility] [address] [place] [address] * LIVER PROFILE (08/09/2018 8:18 AM CDT) [...] [facility] Specimen Blood Performing Organization Address [facility] Phone Number [facility] [address] [place] [address] * XRAY FOOT 3 VIEWS - ROUTINE [...] ROUTINE, XRAY ANKLE 3 VIEWS - ROUTINE [place] SIDE: Left INDICATION: pain COMPARISON: None FINDINGS: [...] MD, 08/04/2018 2:12 AM Performing Organization Address [facility] Phone Number SMS * SALICYLATE (08/03/2018 10:44 PM CDT) Salicylate <2.5 (L) 2.8 - 30 mg/dL [facility] Specimen Blood Performing Organization Address [facility]/Zipcode Phone Number [facility] [address] [place] [address] * PT/INR (08/03/2018 10:44 PM CDT) PT 13.2 11.8 - 15.0 Seconds [facility] INR 1.0 Refer to INR ranges [facility] Comment: LABORATORY 2.0 - 3.0 for moderate intensity anticoagulation 2.5 - 3.5 for high intensity anticoagulation Specimen Blood Performing Organization Address [facility] Phone Number [facility] [address] [place] [address] * ACETAMINOPHEN (08/03/2018 10:44 PM CDT) Acetaminophen 103.81 (H) 10.00 - 30.00 ug/mL [facility] Comment: LABORATORY Please refer to acetaminophen nomogram. Specimen Blood Performing Organization Address [facility] Phone Number [facility] [address] [place] [address] after 08/27/2017 Insurance Type Payer Benefit Subscriber ID Effective Phone Address Plan / Dates Group [facility] SELF-PAY SELF-PAY xxxxxxx [id number] [place] [address] Advance Directives Date Inactivated Comments Code Status Date Activated 08/26/2018 2:45 PM Full Code 08/20/2018 9:50 PM 08/27/2016 6:31 PM Full Code 08/18/2016 4:12 AM
--- OUTSIDE RECORDS SUMMARY | 2018-09-28 19:02 | XMS REPORT | Continuity of Care Document ---
Author Author [facility] Organization [facility] Address Unknown Phone Unavailable Care Team Providers Care Histology Aide Name Role Phone PCPNO PCP Unavailable Advance Directives Directive Response Recorded Date/Time Does the Patient have an Advance Directive? Unknown 09/12/18 7:30pm Chief Complaint and Reason for Visit Chief Complaint ETOH Intoxication Reason for Visit Left against medical advice Alcohol abuse Seizure disorder Tachycardia Problems Medical Problem Onset Date Status Seizure Unknown Acute Past Problems Medical Problem Onset Date Status Chronic pain of left ankle Unknown Acute Alcohol use Unknown Acute Cervical transverse process fracture Unknown Acute History of recent trauma Unknown Acute Left ankle pain Unknown Acute Chronic neck pain Unknown Acute Epileptic seizure, generalized Unknown Acute Acute alcoholic intoxication Unknown Acute Alcohol abuse Unknown Acute Seizure disorder Unknown Acute Tachycardia Unknown Acute Left against medical advice Unknown Acute Medications Current Home Medications Medication Dose Units Route Directions Days Qty Instructions Start Date Acetaminophen/Codeine Phosphate (Tylenol #4) 1 Tab Tab 1 Tab Oral Every 6 Hours as needed for Pain 20 Tablet 09/10/18 Clonazepam (Klonopin) 0.5 Mg Tab 0.5 Mg Oral Twice A Day 30 Tablet 09/11/18 Divalproex Sodium (Depakote) 500 Mg Tabec 500 Mg Oral Twice A Day 60 Tablet 09/11/18 Levetiracetam (Keppra) 500 Mg Tab 500 Mg Oral Twice A Day 60 Tablet 09/10/18 Levetiracetam (Keppra) 500 Mg Tab 500 Mg Oral Twice A Day 20 Tablet 09/12/18 Social History Social History Problem Response Recorded Date/Time Onset Date Status Hx Tobacco Use Yes 09/12/2018 8:22pm Not Applicable Not Applicable Smoking Status Start Date Stop Date Current Every Day Smoker Hospital Discharge Instructions No hospital discharge instruction information available. Plan of Care Discharge Date 09/12/18 9:20pm Disposition AGAINST MEDICAL ADVICE 07 Condition at Discharge Stable Instructions/Education Provided Seizures, Adult (DC) Alcohol Abuse and Alcoholism (DC) Leaving Against Medical Advice Forms Provided Procedures & Tests Performed Work/School Release Prescriptions See Medication Section Referrals [facility] [place] NO PCP Note: ALCOHOL & DRUG ABUSE [facility]OL[facility] ANONYMOUS [facility] SUPPORT Additional Instructions/Education There are no medical contraindication for incarceration. Patient is medically cleared for fdc. Please read and follow all discharge instructions provided. Please follow-up with the orthopedic clinic of your choice or with [facility] within 1 week for reassessment. Please go to homeless [facility] for housing. Please take your medications as prescribed. Gradually decrease your alcohol consumption. Please follow-up with primary care provider of your choice, [facility] on Saturday for reassessment. Please go to 1 of the alcohol/detox facilities listed below within 48 hours for assistance with your alcohol abuse. Please return to the emergency department immediately if seizure occurs, sudden severe onset of headache, focal weakness or numbness, desire to hurt yourself or others develops, feelings of hopelessness, hearing command or threatening voices, and voices, visual hallucinations, decreased urine output or any other symptoms of significance or concerns develop. Functional Status Query Response Date Recorded Onset Within the Last 7 Days No Problem Identified September 12, 2018 7:30pm Allergies, Adverse Reactions, Alerts Allergen Type Severity Reaction Status Last Updated Phenytoin Allergy Unknown Active 09/10/18 Immunizations Query Response on File Recorded Date/Time HX of Pneumococcal Vaccine Unknown 09/12/18 12:21am HX of Influenza Vaccine Unknown 09/12/18 12:21am Tetanus Status Unknown 09/12/18 8:22pm Vital Signs Acute Vital Signs Vital Response Date/Time Temperature (Fahrenheit) 98.8 degrees F (97.6 - 99.5) 09/12/2018 12:21am Pulse Rate (adult) 110 bpm (60 - 100) 09/12/2018 7:30pm Pulse Rate 110 bpm 09/12/2018 9:36pm Respiratory Rate 14 breaths per minute (12 - 24) 09/12/2018 7:30pm Respiratory Rate 14 breaths per minute 09/12/2018 9:36pm Blood Pressure Systolic 135 mm Hg (100 - 140) 09/12/2018 7:30pm Blood Pressure Systolic 135 mm Hg 09/12/2018 9:36pm Blood Pressure Diastolic 75 mm Hg (60 - 90) 09/12/2018 7:30pm Blood Pressure Diastolic 75 mm Hg 09/12/2018 9:36pm Results Laboratory Results Test Name Result Units Flags Reference Collection Date/Time Result Date/Time Comments Red Blood Cell Morphology Normal 09/06/2018 7:04pm 09/06/2018 7:58pm Neutrophils (%) (Auto) 68 % 47-75 09/10/2018 4:00am 09/10/2018 2:31pm Immature Granulocyte % (Auto) 1 % H 0-0 09/10/2018 4:00am 09/10/2018 2:31pm Lymphocytes (%) (Auto) 20 % L 25-44 09/10/2018 4:00am 09/10/2018 2:31pm Monocytes (%) (Auto) 10 % 3-10 09/10/2018 4:00am 09/10/2018 2:31pm Eosinophils (%) (Auto) 2 % 0-7 09/10/2018 4:00am 09/10/2018 2:31pm Basophils (%) (Auto) 1 % 0-1 09/10/2018 4:00am 09/10/2018 2:31pm Nucleated Red Blood Cells % 0.0 % 0-0.2 09/10/2018 4:00am 09/10/2018 2:31pm Neutrophils # (Auto) 7.0 10*3/uL H 1.3-6.7 09/10/2018 4:00am 09/10/2018 2:31pm Immature Granulocyte # (Auto) 0.1 10*3/uL H 0.0-0.0 09/10/2018 4:00am 09/10/2018 2:31pm Lymphocytes # (Auto) 2.0 10*3/uL 1.4-4.1 09/10/2018 4:00am 09/10/2018 2:31pm Monocytes # (Auto) 1.0 10*3/uL 0-1.3 09/10/2018 4:00am 09/10/2018 2:31pm Eosinophils # (Auto) 0.2 10*3/uL 0-0.8 09/10/2018 4:00am 09/10/2018 2:31pm Basophils # (Auto) 0.1 10*3/uL 0-0.1 09/10/2018 4:00am 09/10/2018 2:31pm Nucleated Red Blood Cells # 0.00 10*3/uL 0-0.01 09/10/2018 4:00am 09/10/2018 2:31pm White Blood Count 9.7 10*3/uL 4.5-11.5 09/12/2018 12:15am 09/12/2018 12:43am Red Blood Count 3.03 10*6/uL L 4.4-6.2 09/12/2018 12:1509/12/2018 12:43am Hemoglobin 8.0 g/dL L 13.0-17.5 09/12/2018 12:1509/12/2018 12:43am Hematocrit 26.9 % L 39.0-52.5 09/12/2018 12:1509/12/2018 12:43am Mean Corpuscular Volume 89 fL 80-94 09/12/2018 12:1509/12/2018 12:43am Mean Corpuscular Hemoglobin 26.4 pg L 27.0-33.0 09/12/2018 12:1509/12/2018 12:43am Mean Corpuscular Hemoglobin Concent 29.7 g/dL L 33.0-37.0 09/12/2018 12:1509/12/2018 12:43am Red Cell Distribution Width 14.6 % H 10.7-14.5 09/12/2018 12:15am 09/12/2018 12:43am Platelet Count 306 10*3/uL 150-450 09/12/2018 12:15am 09/12/2018 12:43am Mean Platelet Volume 8.6 fl 5.7-10.7 09/12/2018 12:15am 09/12/2018 12:43am Manual Differential ----- 09/12/2018 12:15am 09/12/2018 12:43am Neutrophils % (Manual) 56 % 42-75 09/12/2018 12:15am 09/12/2018 1:26am Lymphocytes % (Manual) 28 % 21-51 09/12/2018 12:15am 09/12/2018 1:26am Monocytes % (Manual) 13 % H 1-9 09/12/2018 12:15am 09/12/2018 1:26am Eosinophils % (Manual) 2 % 0-7 09/12/2018 12:15am 09/12/2018 1:26am Basophils % (Manual) 1 % 0-2 09/12/2018 12:15am 09/12/2018 1:26am Platelet Estimate Adequate 09/12/2018 12:15am 09/12/2018 1:26am Anisocytosis 1+ 09/12/2018 12:15am 09/12/2018 1:26am Polychromasia 1+ 09/12/2018 12:15am 09/12/2018 1:26am Hypochromasia 2+ 09/12/2018 12:15am 09/12/2018 1:26am Prothrombin Time 9.9 sec 9.4-12.0 09/12/2018 12:15am 09/12/2018 12:50am Reference range studies have been peformed on new reagent and reference range has been changed on 01/08/17. Prothromb Time International Ratio 1.0 Ratio 0.8-1.2 09/12/2018 12:15am 09/12/2018 12:50am *INR values, while recommended for monitoring all stages of oral anticoagulant therapy, may be less reliable during the initiation period of treatment. INR THERAPEUTIC RANGE: Conventional Dose=2.0 - 3.0 Intensive Dose=2.5 - 3.5 Activated Partial Thromboplast Time 27.2 sec 21.0-33.0 09/12/2018 12:15am 09/12/2018 12:50am For heparin monitoring, aPTT 44.0-66.0 seconds corresponds to heparin 0.3-0.7 IU/mL. Reference range and heparin studies were performed on new reagent on 11/13/17. Urine Source URINE 09/12/2018 12:55am 09/12/2018 1:05am Urine Color Colorless Yel-Macrina * 09/12/2018 12:55am 09/12/2018 1:25am Urine Appearance Clear Clear * 09/12/2018 12:55am 09/12/2018 1:25am Urine pH 6.0 5.0-8.0 09/12/2018 12:55am 09/12/2018 1:25am Urine Specific [place] 1.006 1.005-1.030 09/12/2018 12:55am 09/12/2018 1:25am Urine Protein 50 mg/dL H Negative * 09/12/2018 12:55am 09/12/2018 1:25am Urine Glucose (UA) Negative mg/dL Negative * 09/12/2018 12:55am 09/12/2018 1:25am Urine Ketones Negative mg/dL Negative * 09/12/2018 12:55am 09/12/2018 1:25am Urine Occult Blood Negative Negative * 09/12/2018 12:55am 09/12/2018 1:25am Urine Nitrite Negative Negative 09/12/2018 12:55am 09/12/2018 1:25am Urine Bilirubin Negative mg/dL Negative 09/12/2018 12:55am 09/12/2018 1:25am Urine Urobilinogen Negative mg/dL 0.0-1.0 09/12/2018 12:55am 09/12/2018 1:25am Urine Leukocyte Esterase Negative Teo/uL Negative 09/12/2018 12:55am 09/12/2018 1:25am Microscopic Urinalysis (T) ----- 09/12/2018 12:55am 09/12/2018 1:25am Urine RBC 0-2 /HPF 0-2 09/12/2018 12:55am 09/12/2018 1:28am Urine WBC 0-5 /HPF 0-5 09/12/2018 12:55am 09/12/2018 1:28am Urine Epithelial Cells None Seen /HPF Few 09/12/2018 12:55am 09/12/2018 1:28am Urine Crystals None Seen /HPF None * 09/12/2018 12:55am 09/12/2018 1:28am Urine Bacteria None Seen /HPF None 09/12/2018 12:55am 09/12/2018 1:28am Urine Casts None Seen /LPF None * 09/12/2018 12:55am 09/12/2018 1:28am Urine Hyaline Casts None Seen /LPF 0-1 09/12/2018 12:55am 09/12/2018 1:28am Urine Yeast None Seen /HPF None 09/12/2018 12:55am 09/12/2018 1:28am Urinalysis Comment * * 09/12/2018 12:55am 09/12/2018 1:25am Ref Range=* Clinical evaluation required. Urine Culture Indicated Not Ind 09/12/2018 12:55am 09/12/2018 1:28am Sodium Level 134 mmol/L L 136-145 09/12/2018 12:15am 09/12/2018 1:04am Potassium Level 3.9 mmol/L 3.5-5.1 09/12/2018 12:15am 09/12/2018 1:04am Chloride Level 98 mmol/L 98-107 09/12/2018 12:15am 09/12/2018 1:04am Carbon Dioxide Level 18 mmol/L L 24-33 09/12/2018 12:15am 09/12/2018 1:04am Anion Gap 22 H 8-18 09/12/2018 12:15am 09/12/2018 1:04am Blood Urea Nitrogen 6 mg/dL 6-20 09/12/2018 12:15am 09/12/2018 1:04am Creatinine 0.6 mg/dL L 0.9-1.5 09/12/2018 12:15am 09/12/2018 1:04am Note: Acetaminophen and N-acetylcysteine can cause falsely low measurements of creatinine. Correlation with patient's medication history is recommended. Estimat Glomerular Filtration Rate 160 H 81-133 09/12/2018 12:15am 09/12/2018 1:04am Stages of Patients with Estimated GFR Known Kidney Disease (ml/min/1.73 sq.meters) Stage 1 - Kidney damage w/normal 90 mL/min or greater or increased GFR Stage 2 - Kidney disease w/mildly 60-89 mL/min decreased GFR Stage 3 - Moderately decreased GFR 30-59 mL/min Stage 4 - Severely decreased GFR 15-29 mL/min Stage 5 - Kidney failure 14 mL/min or less To estimate the GFR for Americans, multiply the result provided by 1.21. Glucose Level 167 mg/dL H 60-100 09/12/2018 12:15am 09/12/2018 1:04am Calcium Level 8.6 mg/dL L 9.1-10.9 09/12/2018 12:15am 09/12/2018 1:04am Total Bilirubin < 0.2 mg/dL 0.0-1.0 09/12/2018 12:15am 09/12/2018 1:04am Aspartate Amino Transf (AST/SGOT) 21 U/L 0-40 09/12/2018 12:15am 09/12/2018 1:04am Alanine Aminotransferase (ALT/SGPT) 23 U/L 0-41 09/12/2018 12:15am 09/12/2018 1:04am Total Protein 7.2 g/dL 6.4-8.3 09/12/2018 12:15am 09/12/2018 1:04am Albumin 3.8 g/dL 3.5-5.0 09/12/2018 12:15am 09/12/2018 1:04am Alkaline Phosphatase 138 U/L H 53-128 09/12/2018 12:15am 09/12/2018 1:04am Troponin T 0.05 ng/mL H 0.00-0.03 09/12/2018 12:15am 09/12/2018 1:06am Results called to LIZZETTE FRANZ at 0104 on 09/12/18 by [id number]. Result read-back successful. Y Troponin T Interpretation: >0.03-0.10 ng/mL Indeterminate for Myocardial Infarction; Suggest Correlation with the Serial Cardiac Studies. Other Conditions Resulting in Myocardial Cell Damage can Potentially Increase Cardiac Troponin-T Levels Above the Expected Value. Clinical Studies have Documented These Conditions to Include Unstable Angina, Congestive Heart Failure, Trauma, Myocarditis, and Cardiac Surgery or Invasive Testing. Exogenous Biotin may cause false decrease in this test. . Ethyl Alcohol Level < 11 mg/dL Not Available 09/12/2018 1:20pm 09/12/2018 1:45pm This assay for Ethanol is intended for MEDICAL USE ONLY and should be correlated with clinical findings. Urine Methamphetamines Screen Negative ng/mL Uubvjv=783 09/12/2018 12:55am 09/12/2018 1:38am Urine Propoxyphene Screen Negative ng/mL Yrizwi=539 09/12/2018 12:55am 09/12/2018 1:38am Urine Amphetamines Screen Negative ng/mL Ediedx=305 09/12/2018 12:55am 09/12/2018 1:38am Urine Buprenorphine Negative ng/mL Cutoff=10 09/12/2018 12:55am 09/12/2018 1:38am Urine Barbiturates Screen Negative ng/mL Uclinu=998 09/12/2018 12:55am 09/12/2018 1:38am Urine Benzodiazepines Screen Positive ng/mL A Naeskd=368 09/12/2018 12:55am 09/12/2018 1:38am Results called to CARROLL VIVAR at 0137 on 09/12/18 by [id number]. Result read-back successful. Y Urine Cocaine Screen Negative ng/mL Sfxcuq=724 09/12/2018 12:55am 09/12/2018 1:38am Urine Methadone, Qualitative Negative ng/mL Wkazeg=709 09/12/2018 12:55am 09/12/2018 1:38am Urine Opiates Screen Positive ng/mL A Wczcak=561 09/12/2018 12:55am 09/12/2018 1:38am Results called to CARROLL VIVAR at 0138 on 09/12/18 by [id number]. Result read-back successful. Y Urine Phencyclidine Screen Negative ng/mL Cutoff=25 09/12/2018 12:55am 09/12/2018 1:38am Urine Cannabinoids Negative ng/mL Cutoff=50 09/12/2018 12:55am 09/12/2018 1:38am Ur Tricyclic Antidepressants Screen Negative ng/mL Mmghyx=988 09/12/2018 12:55am 09/12/2018 1:38am Urine Oxycodone Screen Negative ng/mL Ksrrnw=183 09/12/2018 12:55am 09/12/2018 1:38am Urine Specific [place] 1.006 1.005-1.030 09/12/2018 12:55am 09/12/2018 1:38am Urine pH 6.0 5.0-8.0 09/12/2018 12:55am 09/12/2018 1:38am Urine Drug Screen Comment See Note 09/12/2018 12:55am 09/12/2018 1:38am If Specific [place] is <1.005 or pH is <4.0 or >9.0, then specimen is suspicious of alteration. This qualitative Screening Test is intended for patient care purposes only. Order a "Drug Screen with Confirmation" to obtain a confirmed analytical result. Bedside Troponin I 0.00 ng/mL 0.00-0.07 09/12/2018 3:45am 09/12/2018 3:59am *NOTE: ED bedside Cardiac Marker results may not correlate directly with results from Clinical Lab due to differences in methodologies. Procedures Procedure Status Date Provider(s) Computed tomography of head or brain without contrast Completed 09/06/18 RANDI MONTESINOS DO Computed tomography of cervical spine without contrast Completed 09/06/18 RANDI MONTESINOS DO Computed tomography of head or brain without contrast Completed 09/10/18 ROLO THOMPSON MD Computed tomography of cervical spine without contrast Completed 09/10/18 ROLO THOMPSON MD X-ray of ankle, three or more views Completed 09/10/18 ROLO THOMPSON MD X-ray of chest, single view Completed 09/10/18 ROLO THOMPSON MD ECG (electrocardiogram) Completed 09/10/18 ROLO THOMPSON MD Computed tomography of head or brain without contrast Completed 09/11/18 MANDI POPE MD Computed tomography of cervical spine without contrast Completed 09/11/18 MANDI POPE MD X-ray of ankle, three or more views Completed 09/11/18 PILO SHETTY MD ECG (electrocardiogram) Completed 09/12/18 ALANIS DOSS MD Computed tomography of head or brain without contrast Completed 09/12/18 RONALD PATEL MD Encounters Encounter Location Arrival/Admit Date Discharge/Depart Date Attending Provider Departed Emergency Room [facility] 09/12/18 7:22pm 09/12/18 9:20pm ALANIS DOSS MD Departed Emergency Room [facility] 09/11/18 11:59pm 09/12/18 4:52pm MANDI POPE MD Departed Emergency Room [facility] 09/11/18 10:16am 09/11/18 3:45pm PILO SHETTY MD Departed Emergency Room [facility] 09/10/18 12:58pm 09/10/18 6:52pm ROLO THOMPSON MD Departed Emergency Room [facility] 09/06/18 11:41pm 09/07/18 1:08am RANDI MONTESINOS DO Departed Emergency Room [facility] 09/06/18 6:44pm 09/06/18 8:59pm RANDI MONTESINOS DO Recent Diagnosis Alcohol abuse Tachycardia
--- OUTSIDE RECORDS SUMMARY | 2018-09-28 19:02 | XMS REPORT | Continuity of Care Document ---
Author Author [facility] Organization [facility] Address Unknown Phone Unavailable Support Name Relationship Address Phone RANDI MONTESINOS DO Caregiver [address] [place] [address] Advance Directives Directive Response Recorded Date/Time Does the Patient have an Advance Directive? No 09/06/18 6:43pm Chief Complaint and Reason for Visit Chief Complaint ETOH Intoxication Problems No problem information available. Medications No medication information available. Social History No social history information available. Hospital Discharge Instructions No hospital discharge instruction information available. Plan of Care Discharge Date 09/06/18 8:59pm Disposition AGAINST MEDICAL ADVICE 07 Condition at Discharge Unknown Prescriptions See Medication Section Functional Status No functional status information available. Allergies, Adverse Reactions, Alerts No allergy information available. Immunizations No immunization information available. Vital Signs Acute Vital Signs Vital Response Date/Time Temperature (Fahrenheit) 97.7 degrees F (97.6 - 99.5) 09/06/2018 6:31pm Pulse Rate (adult) 106 bpm (60 - 100) 09/06/2018 6:31pm Respiratory Rate 14 breaths per minute (12 - 24) 09/06/2018 6:31pm Blood Pressure Systolic 138 mm Hg (100 - 140) 09/06/2018 6:31pm Blood Pressure Diastolic 113 mm Hg (60 - 90) 09/06/2018 6:31pm Height 5 ft 8 in 09/06/2018 6:00pm Weight 244 lb 09/06/2018 6:00pm Body Mass Index 37.1 kg/m^2 09/06/2018 6:00pm Results Laboratory Results Test Name Result Units Flags Reference Collection Date/Time Result Date/Time Comments White Blood Count 11.9 10*3/uL H 4.5-11.5 09/06/2018 7:04pm 09/06/2018 7:24pm Red Blood Count 3.34 10*6/uL L 4.4-6.2 09/06/2018 7:04pm 09/06/2018 7:24pm Hemoglobin 9.0 g/dL L 13.0-17.5 09/06/2018 7:04pm 09/06/2018 7:24pm Hematocrit 29.9 % L 39.0-52.5 09/06/2018 7:04pm 09/06/2018 7:24pm Mean Corpuscular Volume 90 fL 80-94 09/06/2018 7:04pm 09/06/2018 7:24pm Mean Corpuscular Hemoglobin 26.9 pg L 27.0-33.0 09/06/2018 7:04pm 09/06/2018 7:24pm Mean Corpuscular Hemoglobin Concent 30.1 g/dL L 33.0-37.0 09/06/2018 7:04pm 09/06/2018 7:24pm Red Cell Distribution Width 14.6 % H 10.7-14.5 09/06/2018 7:04pm 09/06/2018 7:24pm Platelet Count 403 10*3/uL 150-450 09/06/2018 7:04pm 09/06/2018 7:24pm Mean Platelet Volume 8.6 fl 5.7-10.7 09/06/2018 7:04pm 09/06/2018 7:24pm Manual Differential ----- 09/06/2018 7:04pm 09/06/2018 7:24pm Neutrophils % (Manual) 74 % 42-75 09/06/2018 7:04pm 09/06/2018 7:58pm Lymphocytes % (Manual) 16 % L 21-51 09/06/2018 7:04pm 09/06/2018 7:58pm Monocytes % (Manual) 9 % 1-9 09/06/2018 7:04pm 09/06/2018 7:58pm Basophils % (Manual) 1 % 0-2 09/06/2018 7:04pm 09/06/2018 7:58pm Platelet Estimate Adequate 09/06/2018 7:04pm 09/06/2018 7:58pm Red Blood Cell Morphology Normal 09/06/2018 7:04pm 09/06/2018 7:58pm Urine Source URINE 09/06/2018 6:28pm 09/06/2018 7:13pm Urine Color Colorless Yel-Macrina * 09/06/2018 6:28pm 09/06/2018 7:19pm Urine Appearance Clear Clear * 09/06/2018 6:09/06/2018 7:19pm Urine pH 5.5 5.0-8.0 09/06/2018 6:09/06/2018 7:19pm Urine Specific [place] 1.011 1.005-1.030 09/06/2018 6:28pm 09/06/2018 7:19pm Urine Protein 20 mg/dL H Negative * 09/06/2018 6:09/06/2018 7:19pm Urine Glucose (UA) 70 mg/dL H Negative * 09/06/2018 6:09/06/2018 7:19pm Urine Ketones Negative mg/dL Negative * 09/06/2018 6:09/06/2018 7:19pm Urine Occult Blood Negative Negative * 09/06/2018 6:09/06/2018 7:19pm Urine Nitrite Negative Negative 09/06/2018 6:09/06/2018 7:19pm Urine Bilirubin Negative mg/dL Negative 09/06/2018 6:09/06/2018 7:19pm Urine Urobilinogen Negative mg/dL 0.0-1.0 09/06/2018 6:09/06/2018 7:19pm Urine Leukocyte Esterase Negative Teo/uL Negative 09/06/2018 6:09/06/2018 7:19pm Microscopic Urinalysis (T) ----- 09/06/2018 6:09/06/2018 7:19pm Urine RBC 0-2 /HPF 0-2 09/06/2018 6:09/06/2018 7:23pm Urine WBC 0-5 /HPF 0-5 09/06/2018 6:2809/06/2018 7:23pm Urine Epithelial Cells None Seen /HPF Few 09/06/2018 6:2809/06/2018 7:23pm Urine Crystals None Seen /HPF None * 09/06/2018 6:09/06/2018 7:23pm Urine Bacteria None Seen /HPF None 09/06/2018 6:2809/06/2018 7:23pm Urine Casts None Seen /LPF None * 09/06/2018 6:28pm 09/06/2018 7:23pm Urine Hyaline Casts None Seen /LPF 0-1 09/06/2018 6:28pm 09/06/2018 7:23pm Urine Yeast None Seen /HPF None 09/06/2018 6:28pm 09/06/2018 7:23pm Urinalysis Comment * * 09/06/2018 6:28pm 09/06/2018 7:19pm Ref Range=* Clinical evaluation required. Urine Culture Indicated Not Ind 09/06/2018 6:28pm 09/06/2018 7:23pm Sodium Level 137 mmol/L 136-145 09/06/2018 7:04pm 09/06/2018 8:51pm Potassium Level 4.1 mmol/L 3.5-5.1 09/06/2018 7:04pm 09/06/2018 8:51pm Chloride Level 102 mmol/L 98-107 09/06/2018 7:04pm 09/06/2018 8:51pm Carbon Dioxide Level 17 mmol/L L 24-33 09/06/2018 7:04pm 09/06/2018 8:51pm Anion Gap 22 H 8-18 09/06/2018 7:04pm 09/06/2018 8:51pm Blood Urea Nitrogen 7 mg/dL 6-20 09/06/2018 7:04pm 09/06/2018 8:51pm Creatinine 0.7 mg/dL L 0.9-1.5 09/06/2018 7:04pm 09/06/2018 8:51pm Note: Acetaminophen and N-acetylcysteine can cause falsely low measurements of creatinine. Correlation with patient's medication history is recommended. Estimat Glomerular Filtration Rate 134 H 81-133 09/06/2018 7:04pm 09/06/2018 8:51pm Stages of Patients with Estimated GFR Known [...] the result provided by [email or web address]. Glucose Level 113 mg/dL H 60-100 09/06/2018 7:04pm 09/06/2018 8:51pm Calcium Level 8.7 mg/dL L 9.1-10.9 09/06/2018 7:04pm 09/06/2018 8:51pm Total Bilirubin < 0.2 mg/dL 0.0-1.0 09/06/2018 7:04pm 09/06/2018 8:51pm Aspartate Amino Transf (AST/SGOT) 33 U/L 0-40 09/06/2018 7:04pm 09/06/2018 8:51pm Alanine Aminotransferase (ALT/SGPT) 27 U/L 0-41 09/06/2018 7:04pm 09/06/2018 8:51pm Total Protein 7.4 g/dL 6.4-8.3 09/06/2018 7:04pm 09/06/2018 8:51pm Albumin 4.5 g/dL 3.5-5.0 09/06/2018 7:04pm 09/06/2018 8:51pm Alkaline Phosphatase 139 U/L H 53-128 09/06/2018 7:04pm 09/06/2018 8:51pm Ethyl Alcohol Level 211 mg/dL Not Available 09/06/2018 7:04pm 09/06/2018 8:20pm Results called to FEDE JIN at 2018 on 09/06/18 by CHRISTINE. Result read-back successful. Y This assay for Ethanol is intended for MEDICAL USE ONLY and should be correlated with clinical findings. Urine Methamphetamines Screen Negative ng/mL Mceudx=134 09/06/2018 6:28pm 09/06/2018 7:34pm Urine Propoxyphene Screen Negative ng/mL Jpizqo=025 09/06/2018 6:28pm 09/06/2018 7:34pm Urine Amphetamines Screen Negative ng/mL Xebhxm=524 09/06/2018 6:28pm 09/06/2018 7:34pm Urine Buprenorphine Negative ng/mL Cutoff=10 09/06/2018 6:28pm 09/06/2018 7:34pm Urine Barbiturates Screen Negative ng/mL Cixljd=585 09/06/2018 6:28pm 09/06/2018 7:34pm Urine Benzodiazepines Screen Positive ng/mL A Rqtwgb=541 09/06/2018 6:28pm 09/06/2018 7:34pm Results called to VERITO RETANA at 1933 on 09/06/18 by GUALBERTO. Result read-back successful. Y Urine Cocaine Screen Negative ng/mL Hsubwf=075 09/06/2018 6:28pm 09/06/2018 7:34pm Urine Methadone, Qualitative Negative ng/mL Oxflxc=501 09/06/2018 6:28pm 09/06/2018 7:34pm Urine Opiates Screen Negative ng/mL Cgqhfv=099 09/06/2018 6:28pm 09/06/2018 7:34pm Urine Phencyclidine Screen Negative ng/mL Cutoff=25 09/06/2018 6:28pm 09/06/2018 7:34pm Urine Cannabinoids Negative ng/mL Cutoff=50 09/06/2018 6:28pm 09/06/2018 7:34pm Ur Tricyclic Antidepressants Screen Negative ng/mL Gqrcmu=967 09/06/2018 6:28pm 09/06/2018 7:34pm Urine Oxycodone Screen Negative ng/mL Oglzcw=178 09/06/2018 6:28pm 09/06/2018 7:34pm Urine Specific [place] 1.011 1.005-1.030 09/06/2018 6:28pm 09/06/2018 7:34pm Urine pH 5.5 5.0-8.0 09/06/2018 6:28pm 09/06/2018 7:34pm Urine Drug Screen Comment See Note 09/06/2018 6:28pm 09/06/2018 7:34pm If Specific [place] is <1.005 or pH is <4.0 or >9.0, then specimen is suspicious of alteration. This qualitative Screening Test is intended for patient care purposes only. Order a "Drug Screen with Confirmation" to obtain a confirmed analytical result. Procedures Procedure Status Date Provider(s) Computed tomography of head or brain without contrast Active 09/06/18 RANDI MONTESINOS DO Computed tomography of cervical spine without contrast Active 09/06/18 RANDI MONTESINOS DO Encounters Encounter Location Arrival/Admit Date Discharge/Depart Date Attending Provider Departed Emergency Room KIERSTEN Mominbeth 09/06/18 6:44pm 09/06/18 8:59pm RANDI MONTESINOS DO
--- OUTSIDE RECORDS SUMMARY | 2018-09-28 19:02 | XMS REPORT | Clinical Summary ---
Author Author [facility] Organization [facility] Address Unknown Phone Unavailable Care Team Providers Care Passenger Screener Name Role Phone PCP Unavailable Allergies Active Allergy Reactions Severity Noted Date Comments Phenytoin Sodium Extended 11/26/2008 Current Medications Prescription Sig. Disp. Refills Start End Date Status Date LEVOTHYROXINE SODIUM Take by mouth. Active (SYNTHROID OR) LISINOPRIL OR Take by mouth. Active METFORMIN HCL (METFORMIN Take by mouth. Active OR) DIVALPROEX SODIUM Take by mouth. Active (DEPAKOTE OR) acetaminophen-codeine Take 1 tablet by mouth 15 tablet 0 08/18/19 Active (TYLENOL/CODEINE #3) every 4 hours as needed 17 300-30 mg per for Pain. tabletIndications: Periumbilical pain, Hernia ondansetron (ZOFRAN) 4 mg Take 1 tablet by mouth 10 tablet 0 08/18/19 Active tabletIndications: every 8 hours as needed 17 Periumbilical pain, for up to 10 doses for Hernia Nausea. gabapentin (NEURONTIN) Take 1 capsule by mouth 3 60 capsule 0 08/28/19 Active 300 mg times daily. 17 capsuleIndications: Ventral incisional hernia traMADol (ULTRAM) 50 mg Take 2 tablets by mouth 60 tablet 0 08/28/19 Active tabletIndications: every 6 hours as needed 17 Ventral incisional hernia for Pain. ondansetron (ZOFRAN) 4 mg Take 1 tablet by mouth 20 tablet 0 08/28/19 Active tabletIndications: every 8 hours as needed 17 Ventral incisional hernia for Nausea. Miscellaneous Medical by [facility].(Non-Drug; Combo 1 Each 0 08/28/19 Active Supply MiscIndications: Route) route Please 17 Ventral incisional hernia provide patient with rolling walker that is at bedside.. Active Problems Problem Noted Date Alcohol intoxication 07/17/2017 ETOH abuse 07/17/2017 Ventral incisional hernia s/p open repair with mesh 08/1808/18/2016 Periumbilical pain 08/17/2016 Hernia Generalized abdominal pain Jaundice Encounters Date Type Specialty Care Team Description 07/23/2017 Emergency Emergency Medicine Brody Jaimes MD Generalized abdominal pain (Primary Dx); Hepatomegaly; Jaundice; Heroin withdrawal; Alcohol withdrawal syndrome, with delirium 07/17/2017 Emergency Emergency Medicine Norberto Gacria MD ETOH abuse (Primary Dx) - 07/18/2017 09/12/2016 Office Visit General Surgery Jose Yu MD Ventral incisional hernia Tj Lovell MD 08/20/2016 Surgery Rohit Reza MD OPEN VENTRAL HERNIA REPAIR WITH PROCEED MESH, EXTENSIVE LYSIS OF ADHESIONS. 08/19/2016 Anesthesia Nahomi Yu, Event ResidentMD 08/17/2016 Hospital Santiago Villafuerte MD Periumbilical pain; - Encounter Hernia; 08/27/2016 Ventral incisional hernia; Post-op pain after 08/08/2016 Social History Tobacco Use Types Packs/Day Years Used Date Current Every Day Smoker Smokeless Tobacco: Never Used Alcohol Use Drinks/Week oz/Week Comments Yes last EtOH 06/2016 Sex Assigned at Date Recorded Not on file Last Filed Vital Signs Vital Sign Reading Time Taken Blood Pressure 163/105 07/23/2017 7:00 PM CDT Pulse 92 07/23/2017 7:00 PM CDT Temperature 37 C (98.6 F) 07/23/2017 7:00 PM CDT Respiratory Rate 18 07/23/2017 7:00 PM CDT Oxygen Saturation 94% 07/23/2017 7:00 PM CDT Inhaled Oxygen - - Concentration Weight 102.5 kg (225 lb 14.4 oz) 08/18/2016 1:34 PM CDT Height 170.2 cm (5' 7") 08/18/2016 1:34 PM CDT Body Mass Index 35.38 08/18/2016 1:34 PM CDT Plan of Treatment Not on file Implants Implanted Type Area Net Architect Device Expiration Model / Identifier Date Serial / Lot Proceed Surgical Mesh Anterior: 11/17/2017 [id number] / Implanted: Qty: 1 on 08/20/2016 by Abdomen / Rohit Reza MD [id number] Procedures Procedure Name Priority Date/Time Associated Diagnosis Comments OPEN VENTRAL HERNIA 08/20/2016 Hernia, ventral REPAIR WITH PROCEED MESH, 11:15 AM CDT EXTENSIVE LYSIS OF ADHESIONS. after 08/08/2016 Results * BMP POC (07/23/2017 8:43 PM) Only the most recent of 4 results within the time period is included. Component Value Ref Range CO2 POC 23 21 - 32 mmol/L Chloride POC 98 98 - 107 mmol/L Potassium POC 3.9 3.50 - 5.10 mmol/L Sodium POC 135 (L) 136 - 145 mmol/L Glucose POC 303 (H) 74 - 106 mg/dL Urea Nitrogen POC 8 7 - 18 mg/dL Creatinine POC 0.7 0.6 - 1.3 mg/dL Calcium Ionized POC 1.01 (L) 1.15 - 1.29 mmol/L Hemoglobin POC 13.6 (L) 14.0 - 18.0 g/dL Hematocrit POC 40.0 40.0 - 54.0 % GFR, Estimated >60 mL/min/1.73 m2 GFR, Estim, Afr-Am >60 mL/min/1.73 m2 Specimen Performing Laboratory [facility] * CT ABDOMEN AND PELVIS CONTRAST (07/23/2017 6:01 PM) Only the most recent of 2 results within the time period is included. Specimen Performing Laboratory SMS Impressions IMPRESSION: 1. Mild nonspecific inflammatory changes of the subcutaneous fat adjacent to midline laparotomy scar related to prior hernia repairs. 2. Possible tiny recurrent ventral abdominal hernia without evidence of fatstrangulation or focal inflammation. Dictated By: Ever Lopez MD, 07/23/2017 7:01 PM I have reviewed the study and agree with the findings in this report. Signed By: Nahum Lucio DO, 07/23/2017 8:55 PM Narrative EXAM: CT Abdomen and Pelvis WITH contrast [...] LOWER THORAX: Normal. HEPATOBILIARY: No focal hepatic lesions.No biliary [...] distention, wall thickening, or evidence of bowel obstruction.Appendix is normal. PELVIC ORGANS/BLADDER: Unremarkable. LYMPH NODES: [...] scar at midline. Mild periumbilical skin thickening. Procedure Note Interface, Rad/Mammog In - 07/23/2017 9:00 PM [...] By: Nahum Lucio DO, 07/23/2017 8:55 PM * PT/INR (07/23/2017 4:58 PM) Only the most recent of 2 results within the time period is included. Component Value Ref Range PT 12.5 11.8 - 15.0 Seconds INR 0.9 SUGGESTED THERAPEUTIC RANGES: INR 2.0-3.0 for MODERATE INTENSITY ANTICOAGULATION INR 2.5-3.5 for HIGH INTENSITY ANTICOAGULATION Specimen Performing Laboratory Blood [facility] * LIVER PROFILE (07/23/2017 4:58 PM) Only the most recent of 3 results within the time period is included. Component Value Ref Range T Protein 6.9 6.0 - 8.3 g/dL Albumin 4.3 4.2 - 5.5 g/dL T Bilirubin 1.3 (H) 0.2 - 1.2 mg/dL Alk Phos 189 (H) 34 - 104 U/L AST 154 (H) 13 - 39 U/L ALT 155 (H) 7 - 52 U/L D Bilirubin 0.5 (H) 0.0 - 0.2 mg/dL Specimen Performing Laboratory [facility] * ALCOHOL (07/23/2017 4:58 PM) Only the most recent of 2 results within the time period is included. Component Value Ref Range Alcohol 0.132 (H) <0.1 g/dL Specimen Performing Laboratory [facility] * UA CHEMISTRIES (07/23/2017 4:32 PM) Only the most recent of 2 results within the time period is included. Component Value Ref Range Color Yellow Clarity Clear Spec Benn[place] 1.031 1.001 - 1.035 pH 6.0 5 - 8 Protein 2+ (A) NEG Glucose 3+ (A) NEG Ketone Negative NEG Bilirubin Negative NEG Nitrate Negative NEG Urobilinogen <1.0 0.2 - 1.0 EU/dL Leukocyte Negative NEG Blood 1+ (A) NEG RBC 1 0 - 4 /HPF WBC <1 0 - 5 /HPF Epithelial Cell <1 /HPF Specimen Performing Laboratory Urine [facility] * OCCULT BLOOD ICT (07/23/2017 4:07 PM) Component Value Ref Range Occult Blood ICT Negative NEG Specimen Performing Laboratory Stool [facility] * VBG POC (07/23/2017 2:46 PM) Only the most recent of 2 results within the time period is included. Component Value Ref Range pH, Jay POC 7.42 7.33 - 7.43 pCO2, Jay POC 36.7 (L) 38.0 - 50.0 mm Hg pO2, Jay POC 63 50 - 75 mm Hg Base Excess, Jay POC 0 mmol/L HCO3, Jay POC 23.8 22.0 - 26.0 mmol/L % Sat, Jay POC 92 (H) 60 - 85 % Lactic Acid, Jay POC 1.84 0.4 - 2.0 mmol/L Sample Type Jay TCO2, JAY POC 25 21 - 32 mmol/L Specimen Performing Laboratory [facility] * 12 LEAD EKG (07/23/2017 2:34 PM) Only the most recent of 2 results within the time period is included. Component Value Ref Range 12 LEAD EKG FOR [facility] Test Date:2017-07-23 Pat Name: LESVIA RUSSO Department: : Gender: OPAL echnician: [id number] :1980 Requested By: Order Number: Reading MD: ray tavarez Measurements Intervals [place] Rate: 91 P:58 IA: 162QRS :45 QRSD: 84 T:53 QT: 376 QTc:463 Interpretive Statements SINUS RHYTHM SEPTAL MYOCARDIAL INFARCTION, PROBABLY OLD Electronically Signed On 07-23-17 14:45:39 CDT by ray tavarez Specimen Performing Laboratory SMS * HIV-1/HIV-2 ROUTINE SCREENING (07/23/2017 2:30 PM) Only the most recent of 2 results within the time period is included. Component Value Ref Range HIV-1/HIV-2 Negative NEG Specimen Performing Laboratory [facility] * LIPASE (07/23/2017 2:30 PM) Only the most recent of 2 results within the time period is included. Component Value Ref Range Lipase 93 (H) 11 - 82 U/L Specimen Performing Laboratory Blood [facility] * CK (07/23/2017 2:30 PM) Component Value Ref Range CK 865 (H) 30 - 223 U/L Specimen Performing Laboratory [facility] * CBC/DIFF (07/23/2017 2:30 PM) Only the most recent of 2 results within the time period is included. Component Value Ref Range WBC 7.7 4.5 - 12.0 K/uL RBC 4.06 (L) 4.60 - 6.20 M/uL Hemoglobin 13.5 (L) 14.0 - 18.0 g/dL Hematocrit 39.5 (L) 40.0 - 54.0 % MCV 97 (H) 82 - 92 fL MCH 33.3 (H) 27.0 - 31.0 pg MCHC 34.2 32.0 - 36.0 g/dL RDW 47.2 (H) 35.1 - 43.9 fL Platelet 233 150 - 400 K/uL Mean Platelet Volume 9.7 9.4 - 12.4 fL Percent NRBC 0.0 Absolute NRBC 0.00 Neutrophil 60.1 34.0 - 67.9 % Lymphocyte 24.4 21.8 - 50.0 % Monocyte 12.2 (H) 5.3 - 12.0 % Eosinophil 2.2 0.8 - 5.0 % Basophil 0.6 0.2 - 1.2 % Pct Immat Gran 0.5 0.0 - 0.5 Neutrophil, Abs 4.63 1.78 - 5.36 K/uL Lymphocyte, Abs 1.88 1.32 - 3.57 K/uL Monocyte, Abs 0.94 (H) 0.30 - 0.82 K/uL Eosinophil, Abs 0.17 0.04 - 0.54 K/uL Basophil, Abs 0.05 0.01 - 0.08 K/uL Absol Immat Gran 0.04 (H) 0.00 - 0.03 K/uL Specimen Performing Laboratory Blood MISYS * GLUCOSE POC (08/27/2016 11:51 AM) Only the most recent of 36 results within the time period is included. Component Value Ref Range Glucose POC 119 (H) 74 - 106 mg/dL Specimen Performing Laboratory [facility] * PHOSPHORUS (08/27/2016 3:23 AM) Only the most recent of 10 results within the time period is included. Component Value Ref Range Phosphorus 4.2 2.5 - 4.9 mg/dL Specimen Performing Laboratory Blood MISYS * MAGNESIUM (08/27/2016 3:23 AM) Only the most recent of 10 results within the time period is included. Component Value Ref Range Magnesium 1.9 1.8 - 2.4 mg/dL Specimen Performing Laboratory Blood MISYS * CBC (08/27/2016 3:23 AM) Only the most recent of 10 results within the time period is included. Component Value Ref Range WBC 11.0 4.5 - 12.0 K/uL RBC 2.92 (L) 4.60 - 6.20 M/uL Hemoglobin 9.2 (L) 14.0 - 18.0 g/dL Hematocrit 27.6 (L) 40.0 - 54.0 % MCV 95 (H) 82 - 92 fL MCH 31.5 (H) 27.0 - 31.0 pg MCHC 33.3 32.0 - 36.0 g/dL RDW 44.8 (H) 35.1 - 43.9 fL Platelet 296 150 - 400 K/uL Mean Platelet Volume 8.9 (L) 9.4 - 12.4 fL Percent NRBC 1.2 Absolute NRBC 0.13 Specimen Performing Laboratory Blood MISYS * BASIC METABOLIC PANEL (08/27/2016 3:23 AM) Only the most recent of 10 results within the time period is included. Component Value Ref Range CO2 28.8 21 - 32 mmol/L Chloride 97 (L) 98 - 107 mmol/L Potassium 4.1 3.50 - 5.10 mmol/L Sodium 136 136 - 145 mmol/L Glucose 105 (H) 70 - 99 mg/dL Urea Nitrogen 7 7 - 18 mg/dL Creatinine 0.63 0.60 - 1.30 mg/dL Anion Gap 10.2 Calcium 8.6 8.50 - 10.20 mg/dL GFR, Estimated >60 mL/min/1.73 m2 GFR, Estim, Afr-Am >60 mL/min/1.73 m2 Specimen Performing Laboratory Blood MISYS * TRANSFUSE TYPE AND CROSSMATCH (RBCS-NURSING) (08/23/2016 6:07 AM) * TYPE AND CROSSMATCH (RBCS-LAB) (08/23/2016 2:00 AM) Component Value Ref Range ABO/RH O Positive Antibody Screen Negative Sample Expiration 08/26/2016 Unit Number [id number] Blood Component Leuko-poor red cells UNIT DIVISION 0 Status of Unit Issued,final Transfusion Status OK to transfuse Crossmatch Result Compatible Specimen Performing Laboratory Blood MISYS * XRAY ABDOMEN (KUB) (08/23/2016 1:31 AM) Specimen Performing Laboratory SMS Impressions IMPRESSION: 1.Nonobstructive bowel gas pattern. 2.Moderate amount of stool seen in the colon. A "PRELIMINARY" report was made available via Lightswitch at the time of dictation by the resident indicated below. If the report is described as "FINALIZED" it indicates the attending/staff radiologist below has reviewed the images and agrees with the resident's interpretation. Dictated By: Johs De León MD, 08/23/2016 1:55 PM I have reviewed the study and agree with the findings in this report. Signed By: Endy Londono MD, 08/23/2016 4:39 PM Narrative EXAM:XRAY ABDOMEN (KUB) FETOGRAM INDICATION: abdominal pain COMPARISON:CT abdomen and pelvis on 08/17/2016. DISCUSSION: LINES/TUBES: Surgical graham seen overlying the abdomen. 2 drainage tubes are present, with distal tips projected on the upper abdomen. BOWEL: Nonobstructive bowel gas pattern.No pneumoperitoneum. Moderate amount of stool in colon. OTHER: No abnormal abdominal calcifications. No mass effect or organomegaly. BONES:Unremarkable. Procedure Note Interface, Rad/Mammog In - 08/23/2016 4:44 PM CDT EXAM: XRAY ABDOMEN (KUB) FETOGRAM INDICATION: abdominal pain [...] A "PRELIMINARY" report was made available via Lightswitch at the time of dictation by the resident indicated below. If the report is described as "FINALIZED" it indicates the attending/staff radiologist below has reviewed the images and agrees with the resident's interpretation. Dictated By: Josh De León MD, 08/23/2016 1:55 PM I have reviewed the study and agree with the findings in this report. Signed By: Endy Londono MD, 08/23/2016 4:39 PM * HGB/HCT (08/22/2016 10:55 PM) Component Value Ref Range Hemoglobin 6.3 (LL) 14.0 - 18.0 g/dL Hematocrit 19.5 (LL) 40.0 - 54.0 % Specimen Performing Laboratory [facility] * INTUBATION (08/20/2016 1:40 PM) Narrative Archie Pack Resident ( 08/20/20161:40 PM Peripheral Nerve Block Block type: other (Quadratus Lumborum) Patient location during procedure: pre-op holding Start time: 08/20/2016 9:10 AM End time: 08/20/2016 9:25 AM Indication: post-op pain management Staffing Anesthesiologist: MARLENY VARGAS PLANING MACHINE OPERATOR/Resident: DOLORES PERSAUD Pre-procedure Checklist Completed: Patient identity confirmed. Surgical consent. Immediately prior to the procedure a time out was called. A time out verifies correct patient, procedure, equipment, passport support manager and site/side marked and Risk, benefits, and alternatives were discussed Procedure Details Patient position: supine Prep: ChloraPrep Monitoring: blood pressure, continuous pulse ox, EKG and heart rate Anesthesia laterality: Bilateral. Location/Level of Injections: Quadratus Lumborum Injection technique: single shot Procedures: ultrasound guided Local anesthetic or IV sedation: IV sedation given Maximum sterile barrier: antiseptic prep, cap worn, hand hygiene performed and mask worn Needle Needle type: Other (Echogenic ) Needle gauge: 22 Needle localization: ultrasound guidance Assessment Injection assessment: local visualized surrounding nerve on ultrasound Heart rate change: no Slow fractionated injection: yes Additional Notes Bilateral quadratus lumborum blocks placed under ultrasound guidance. Bilaterally 20cc injected at quadratus lumborum. Patient tolerated well. Exam following block showed decreased sensation to cold in expected nerve distributions. Intubation Date/Time: 08/20/2016 9:58 AMNo Mask assessment: 2 - vent by mask + OA or adjuvant +/- NMBA Intubation method: video-assisted Laryngoscope size: Mac 3 (Payne blade ) Number of attempts: 2 Cricoid pressure: no Cords visualized: grade 1 Post-procedure assessment: chest rise and ETCO2 monitor Breath sounds: equal and absent over the epigastrium Comments: Intubation with Payne video blade 3.0 by CA-1 with placement of 8.0 cuffed ETT on second attempt.ETT secured at 22 cm. * ANESTHESIA PERIPHERAL BLOCK (08/20/2016 1:40 PM) Archie Rockwell Resident (MD 08/20/20161:40 PM Peripheral Nerve Block Block type: other (Quadratus Lumborum) Patient location during procedure: pre-op holding Start time: 08/20/2016 9:10 AM End time: 08/20/2016 9:25 AM Indication: post-op pain management Staffing Anesthesiologist: MARLENY VARGAS PLANING MACHINE OPERATOR/Resident: DOLORES PERSAUD Pre-procedure Checklist Completed: Patient identity confirmed. Surgical consent. Immediately prior to the procedure a time out was called. A time out verifies correct patient, procedure, equipment, passport support manager and site/side marked and Risk, benefits, and alternatives were discussed Procedure Details Patient position: supine Prep: ChloraPrep Monitoring: blood pressure, continuous pulse ox, EKG and heart rate Anesthesia laterality: Bilateral. Location/Level of Injections: Quadratus Lumborum Injection technique: single shot Procedures: ultrasound guided Local anesthetic or IV sedation: IV sedation given Maximum sterile barrier: antiseptic prep, cap worn, hand hygiene performed and mask worn Needle Needle type: Other (Echogenic ) Needle gauge: 22 Needle localization: ultrasound guidance Assessment Injection assessment: local visualized surrounding nerve on ultrasound Heart rate change: no Slow fractionated injection: yes Additional Notes Bilateral quadratus lumborum blocks placed under ultrasound guidance. Bilaterally 20cc injected at quadratus lumborum. Patient tolerated well. Exam following block showed decreased sensation to cold in expected nerve distributions. Intubation Date/Time: 08/20/2016 9:58 AMNo Mask assessment: 2 - vent by mask + OA or adjuvant +/- NMBA Intubation method: video-assisted Laryngoscope size: Mac 3 (Payne blade ) Number of attempts: 2 Cricoid pressure: no Cords visualized: grade 1 Post-procedure assessment: chest rise and ETCO2 monitor Breath sounds: equal and absent over the epigastrium Comments: Intubation with Payne video blade 3.0 by CA-1 with placement of 8.0 cuffed ETT on second attempt.ETT secured at 22 cm. * HEMOGLOBIN A1C (08/18/2016 4:25 AM) Component Value Ref Range Hemoglobin A1c 9.7 (H) 4.3 - 6.1 % Est Average Gluc 231.7 mg/dL Specimen Performing Laboratory Blood MISYS after 08/08/2016
--- OUTSIDE RECORDS SUMMARY | 2018-09-28 19:02 | XMS REPORT | Continuity of Care Document ---
Author Author [facility] Organization [facility] Address Unknown Phone Unavailable Care Team Providers Care Director Of Billing Name Role Phone PCPNO PCP Unavailable Advance Directives Directive Response Recorded Date/Time Does the Patient have an Advance Directive? No 09/11/18 10:41am Chief Complaint and Reason for Visit Chief Complaint Seizure Reason for Visit Epileptic seizure, generalized Seizure Problems Medical Problem Onset Date Status Seizure Unknown Acute Past Problems Medical Problem Onset Date Status Chronic pain of left ankle Unknown Acute Alcohol use Unknown Acute Cervical transverse process fracture Unknown Acute History of recent trauma Unknown Acute Left ankle pain Unknown Acute Chronic neck pain Unknown Acute Epileptic seizure, generalized Unknown Acute Medications Current Home Medications Medication [...] Oral Twice A Day 60 Tablet 09/10/18 Social History Social History Problem Response Recorded Date/Time Onset Date Status Hx Tobacco Use Yes 09/11/2018 10:41am Not Applicable Not Applicable Smoking Status Start Date Stop Date Current Every Day Smoker Hospital Discharge Instructions No hospital discharge instruction information available. Plan of Care Discharge Date 09/11/18 3:45pm Disposition HOME, SELF-CARE 01 Condition at Discharge Stable Instructions/Education Provided Seizures, Adult (DC) Forms Provided Procedures & Tests Performed Work/School Release Prescriptions See Medication Section Referrals NO PCP [facility] Additional Instructions/Education 1. Thank you for allowing us to provide emergent medical care to you or your family member. We consider it a privilege to have served you during your illness or injury. 2. The examination and treatment that you have received has been on an emergency basis only and is not intended as an effort to provide complete medical care. It is impossible to recognize and treat all elements of an illness or injury in a single ER visit. 3. If you have received a prescription, please fill it TODAY and follow the instructions carefully. If you need a 24 hour pharmacy, the one closest available [facility], [place] [address]. 4. Follow up immediately with your regular doctor (within the next 48 hours). Please follow up with any specialists we may have discussed and provided you information or referrals on. Also, there may be some results we have found which are non-emergent but need to be followed up. When you see your primary doctor, have them call and obtain a full copy of the results from our Emergency Department. [facility] phone # [phone]. Please obtain a copy of the results immediately to follow up with your PCP. Ask for medical records. This must be done immediately within 24-48 hours. This is important for continuity of care and if not done, may lead to further issues in your medical care. 5. If you do NOT have a primary care doctor, please call and make an appointment with one of the following options: [facility] Find [facility] Physician Line: [facility] [address] [place]. [facility] [address]. . [facility] [address] [place] [phone]. [facility] [address] [facility] [facility] [address]. [facility] [address] Tristen Rhoades [facility] [address]. They may provide you with an alternate address for followup. Please make appointment immediately. Failure to do so could lead to issues in your medical care. This is important for continuity of care. 6. Return to the immediately ER for any new, worsening, or concerning symptoms. We are open 24 hours a day and you may return any time. We are happy to see you again to make sure everything is okay. 7. As part of your discharge instructions, we are including the following list of resources to help you obtain follow up treatment. 1. [facility] Find a Physician Referral Line.................................................[phone] 2. [facility], [address] [place] [address] ....[phone] .. 4. [facility] [address], [place] ...[phone] 5. [facility].......................[phone] 6. [facility]-[address] [place] [address]..............[phone] 7. [facility] [place] [address] ....[phone] 8. [facility] [address], [place] .....[phone] 9. [facility], [address],[place], [place] [phone] 10. [facility] [place] .................................[phone] 11. [facility]), ............[phone] [place] [address] 12. Family [facility] ................................................[phone] 13. [facility] ......................................................[phone] 14. Intake and Crisis/[facility] ..............[phone] [address] [facility] 15. [facility], [address] [place] [address] .................[phone] Substance Abuse Access [facility] Treatment Access Service ([facility]) [address], [place] [phone] PRIVATE/PUBLIC SERVICES *Assists with Medication (if the client is an established patient) [facility]: [facility] ........................[phone] [facility]: *[employer] ...........................................[phone] *[facility], [place] ...........................[phone] *[facility], [place] ........................[phone] [facility] ................................[phone] [facility] ...................................[phone] [facility] Clinic ......................................[phone] [facility]: *[facility] (Open M,W,F 9:00am-12:00pm) ..........[phone] *[facility] (Open M,W,F 10:00am-2:00pm) ..........[phone] [facility] ......................................[phone] [facility] ........................................[phone] *[facility]-(Pct.1&2) [phone] *[facility]-(Pct.1&2) ..[phone] [facility] .........[phone] [facility] .......[phone] [facility]...... [phone] [facility] ...................................[phone] [facility]: *[facility] [address] Place (Assist time 1 year) ......................[phone] *[facility] (Assist time 1 year) ............[phone] *JEANETTE Lewis (only [address] zip code) .........................[phone] *Critical access hospital Clinic .......................[phone] [facility] .................................[phone] [facility] .....................................[phone] [facility] ........................[phone] [facility] Pre-[facility] ......................................[phone] [facility] Medical [facility] (Referrals Only) ..........[phone] [facility]: *[facility] .................................[phone] *[facility] ..................................[phone] [facility] ..............[phone] [facility] ..............................................[phone] [facility] .................................[phone] [facility] .............................................[phone] [facility] .................................[phone] [facility]: *[facility] ...................................[phone] *[facility] (pct 1&2) [phone] [facility] .......................................[phone] [facility]: *[facility] ............................[phone] *[facility] .....................................[phone] *[facility] ..........................[phone] *[facility] ....................................[phone] [facility] Clinic .......................................[phone] [facility]: [facility] .......................................[phone] [facility] ........................................[phone] ADDITIONAL SUGGESTIONS FOR MEDICATION ASSISTANCE: The Medicine Program INTERNET: http://www.Txt[employer] [address] email: help@Txt4 [place] [phone] Phone: Helps people apply for enrollment in one or more of the many patient assistance programs available through the [employer]. There is a $5.00 processing fee which is refundable if there is no program available. If the patient is approved the medications are sent to a physician's office to be dispensed. The patient should inquire at their physicians office before enrolling in this program. [employer]OL[employer]ERS [employer] HEALTH CARE: INTERNET: http://www.volunteersinhealthcare.org Web site that provides information and eligibility on medication assistance programs through [employer]. The web site is information only--the patient along with their physician can pursue eligibility with the applicable pharmaceutical company. Consider talking to you physician about office sample or comparable medication which may be less costly. If on Medicaid, consider talking with you physician about writing your prescription for a 90-day supply. Medicaid will allow 3 prescriptions per month for a 90 day supply. Up to 9 medicaitons could be alternately filled without a lapse in coverage. If on Medicare and currently being prescribed medication for respiratoy treatment administered through a nebulizer, Medicare Part B will cover medication. Consider using a pharmacy that will flie Medicare for the medication. Also, on your smart phone, there is an application called [employer]. This jane assists with finding the cheapest prescription in the area. Patient Instructions: Please read the instructions given to you regarding your condition, Functional Status Query Response Date Recorded Onset Within the Last 7 Days No Problem Identified September 11, 2018 10:41am Allergies, Adverse Reactions, Alerts Allergen Type Severity Reaction Status Last Updated Phenytoin Allergy Unknown Active 09/10/18 Immunizations Query Response on File Recorded Date/Time HX of Pneumococcal Vaccine Yes 09/11/18 10:41am HX of Influenza Vaccine No 09/11/18 10:41am Tetanus Status Less Than 5 Years 09/11/18 10:41am Vital Signs Acute Vital Signs Vital Response Date/Time Temperature (Fahrenheit) 98.0 degrees F (97.6 - 99.5) 09/11/2018 3:46pm Pulse Rate (adult) 102 bpm (60 - 100) 09/11/2018 2:30pm Pulse Rate 102 bpm 09/11/2018 3:46pm Respiratory Rate 17 breaths per minute (12 - 24) 09/11/2018 2:30pm Respiratory Rate 17 breaths per minute 09/11/2018 3:46pm Blood Pressure Systolic 140 mm Hg (100 - 140) 09/11/2018 2:30pm Blood Pressure Systolic 140 mm Hg 09/11/2018 3:46pm Blood Pressure Diastolic 98 mm Hg (60 - 90) 09/11/2018 2:30pm Blood Pressure Diastolic 98 mm Hg 09/11/2018 3:46pm Results Laboratory Results Test Name Result Units Flags Reference Collection Date/Time Result Date/Time Comments Neutrophils % (Manual) 74 % 42-75 09/06/2018 [...] 7:19pm Urine Appearance Clear Clear * 09/06/2018 6:28pm 09/06/2018 7:19pm Urine pH 5.5 5.0-8.0 09/06/2018 6:28pm 09/06/2018 7:19pm Urine Specific [place] 1.011 1.005-1.030 09/06/2018 6:09/06/2018 7:19pm Urine Protein 20 mg/dL H Negative * 09/06/2018 6:28pm 09/06/2018 7:19pm Urine Glucose (UA) 70 mg/dL H Negative * 09/06/2018 6:2809/06/2018 7:19pm Urine Ketones Negative mg/dL Negative * 09/06/2018 6:2809/06/2018 7:19pm Urine Occult Blood Negative Negative * 09/06/2018 6:09/06/2018 7:19pm Urine Nitrite Negative Negative 09/06/2018 6:09/06/2018 7:19pm Urine Bilirubin Negative mg/dL Negative 09/06/2018 6:28pm 09/06/2018 7:19pm Urine Urobilinogen Negative mg/dL 0.0-1.0 09/06/2018 6:2809/06/2018 7:19pm Urine Leukocyte Esterase Negative Teo/uL Negative 09/06/2018 6:2809/06/2018 7:19pm Microscopic Urinalysis (T) ----- 09/06/2018 6:09/06/2018 7:19pm Urine RBC 0-2 /HPF 0-2 09/06/2018 6:28pm 09/06/2018 7:23pm Urine WBC 0-5 /HPF 0-5 09/06/2018 6:2809/06/2018 7:23pm Urine Epithelial Cells None Seen /HPF Few 09/06/2018 6:28pm 09/06/2018 7:23pm Urine Crystals None Seen /HPF None * 09/06/2018 6:28pm 09/06/2018 7:23pm Urine Bacteria None Seen /HPF None 09/06/2018 6:09/06/2018 7:23pm Urine Casts None Seen /LPF None * 09/06/2018 6:28pm 09/06/2018 7:23pm Urine Hyaline Casts None Seen /LPF 0-1 09/06/2018 6:28pm 09/06/2018 7:23pm Urine Yeast None Seen /HPF None 09/06/2018 6:28pm 09/06/2018 7:23pm Urinalysis Comment * * 09/06/2018 6:28pm 09/06/2018 7:19pm Ref Range=* Clinical evaluation required. Urine Culture Indicated Not Ind 09/06/2018 6:28pm 09/06/2018 7:23pm White Blood Count 10.3 10*3/uL 4.5-11.5 09/10/2018 4:00am 09/10/2018 2:31pm Red Blood Count 3.15 10*6/uL L 4.4-6.2 09/10/2018 4:0009/10/2018 2:31pm Hemoglobin 8.5 g/dL L 13.0-17.5 09/10/2018 4:0009/10/2018 2:31pm Hematocrit 27.4 % L 39.0-52.5 09/10/2018 4:0009/10/2018 2:31pm Mean Corpuscular Volume 87 fL 80-94 09/10/2018 4:0009/10/2018 2:31pm Mean Corpuscular Hemoglobin 27.0 pg 27.0-33.0 09/10/2018 4:0009/10/2018 2:31pm Mean Corpuscular Hemoglobin Concent 31.0 g/dL L 33.0-37.0 09/10/2018 4:0009/10/2018 2:31pm Red Cell Distribution Width 14.6 % H 10.7-14.5 09/10/2018 4:0009/10/2018 2:31pm Platelet Count 332 10*3/uL 150-450 09/10/2018 4:0009/10/2018 2:31pm Mean Platelet Volume 8.6 fl 5.7-10.7 09/10/2018 4:0009/10/2018 2:31pm Neutrophils (%) (Auto) 68 % 47-75 09/10/2018 4:0009/10/2018 2:31pm Immature Granulocyte % (Auto) 1 % H 0-0 09/10/2018 4:0009/10/2018 2:31pm Lymphocytes (%) (Auto) 20 % L 25-44 09/10/2018 4:0009/10/2018 2:31pm Monocytes (%) (Auto) 10 % 3-10 [...] 0.00 10*3/uL 0-0.01 09/10/2018 4:00am 09/10/2018 2:31pm Manual Differential Not Ind 09/10/2018 4:0009/10/2018 2:31pm Sodium Level 134 mmol/L L 136-145 09/10/2018 4:00am 09/10/2018 2:55pm Potassium Level 3.8 mmol/L 3.5-5.1 09/10/2018 4:00am 09/10/2018 2:55pm Chloride Level 96 mmol/L L 98-107 09/10/2018 4:00am 09/10/2018 2:55pm Carbon Dioxide Level 17 mmol/L L 24-33 09/10/2018 4:00am 09/10/2018 2:55pm Anion Gap 25 H 8-18 09/10/2018 4:00am 09/10/2018 2:55pm Blood Urea Nitrogen 6 mg/dL 6-20 09/10/2018 4:00am 09/10/2018 2:55pm Creatinine 0.5 mg/dL L 0.9-1.5 09/10/2018 4:00am 09/10/2018 2:55pm Note: Acetaminophen and N-acetylcysteine can cause falsely low measurements of creatinine. Correlation with patient's medication history is recommended. Estimat Glomerular Filtration Rate 198 H 81-133 09/10/2018 4:00am 09/10/2018 2:55pm Stages of Patients with Estimated GFR Known [...] the result provided by [email or web address]. Glucose Level 153 mg/dL H 60-100 09/10/2018 4:00am 09/10/2018 2:55pm Calcium Level 8.9 mg/dL L 9.1-10.9 09/10/2018 4:00am 09/10/2018 2:55pm Total Bilirubin 0.2 mg/dL 0.0-1.0 09/10/2018 4:00am 09/10/2018 2:55pm Aspartate Amino Transf (AST/SGOT) 23 U/L 0-40 09/10/2018 4:00am 09/10/2018 2:55pm Alanine Aminotransferase (ALT/SGPT) 28 U/L 0-41 09/10/2018 4:00am 09/10/2018 2:55pm Total Protein 7.4 g/dL 6.4-8.3 09/10/2018 4:00am 09/10/2018 2:55pm Albumin 3.8 g/dL 3.5-5.0 09/10/2018 4:00am 09/10/2018 2:55pm Alkaline Phosphatase 126 U/L 53-128 09/10/2018 4:00am 09/10/2018 2:55pm Ethyl Alcohol Level 130 mg/dL Not Available 09/10/2018 4:00am 09/10/2018 2:57pm Results called to RASHAWN MARIE at 1456 on 09/10/18 by [id number]. Result read-back successful. Y This assay for Ethanol is intended for MEDICAL USE ONLY and should be correlated with clinical findings. Urine Methamphetamines Screen Negative ng/mL Aiftnn=061 09/10/2018 2:00pm 09/10/2018 2:38pm Urine Propoxyphene Screen Negative ng/mL Qurjac=479 09/10/2018 2:00pm 09/10/2018 2:38pm Urine Amphetamines Screen Negative ng/mL Zupzrd=965 09/10/2018 2:00pm 09/10/2018 2:38pm Urine Buprenorphine Negative ng/mL Cutoff=10 09/10/2018 2:00pm 09/10/2018 2:38pm Urine Barbiturates Screen Negative ng/mL Fsxyxl=988 09/10/2018 2:00pm 09/10/2018 2:38pm Urine Benzodiazepines Screen Positive ng/mL A Wjmlwu=013 09/10/2018 2:00pm 09/10/2018 2:38pm Results called to JUVENTINO CALDERON at 1438 on 09/10/18 by [id number]. Result read-back successful. Y Urine Cocaine Screen Negative ng/mL Jgwdjf=776 09/10/2018 2:00pm 09/10/2018 2:38pm Urine Methadone, Qualitative Negative ng/mL Lcauqt=308 09/10/2018 2:00pm 09/10/2018 2:38pm Urine Opiates Screen Negative ng/mL Exabai=919 09/10/2018 2:00pm 09/10/2018 2:38pm Urine Phencyclidine Screen Negative ng/mL Cutoff=25 09/10/2018 2:00pm 09/10/2018 2:38pm Urine Cannabinoids Negative ng/mL Cutoff=50 09/10/2018 2:00pm 09/10/2018 2:38pm Ur Tricyclic Antidepressants Screen Negative ng/mL Aqnwjm=201 09/10/2018 2:00pm 09/10/2018 2:38pm Urine Oxycodone Screen Negative ng/mL Xhcggu=300 09/10/2018 2:00pm 09/10/2018 2:38pm Urine Specific [place] 1.009 1.005-1.030 09/10/2018 2:00pm 09/10/2018 2:15pm Urine pH 6.0 5.0-8.0 09/10/2018 2:00pm 09/10/2018 2:15pm Urine Drug Screen Comment See Note 09/10/2018 2:00pm 09/10/2018 2:38pm If Specific [place] is <1.005 or pH is <4.0 or [...] X-ray of ankle, three or more views Active 09/11/18 PILO SHETTY MD Encounters Encounter Location Arrival/Admit Date Discharge/Depart Date Attending Provider Departed Emergency Room [facility] 09/11/18 10:16am 09/11/18 3:45pm PILO SHETTY MD Departed Emergency Room [facility] 09/10/18 12:58pm 09/10/18 6:52pm ROLO THOMPSON MD Departed Emergency Room [facility] 09/06/18 11:41pm 09/07/18 1:08am RANDI MONTESINOS DO Departed Emergency Room [facility] 09/06/18 6:44pm 09/06/18 8:59pm RANDI MONTESINOS DO Recent Diagnosis
--- OUTSIDE RECORDS SUMMARY | 2018-09-28 19:02 | XMS REPORT | Continuity of Care Document ---
Author Author [facility] Organization [facility] Address Unknown Phone Unavailable Care Team Providers Care Application Software Developer Name Role Phone PCPNO PCP Unavailable Advance Directives Directive Response Recorded Date/Time Does the Patient have an Advance Directive? Unknown 09/12/18 12:21am Chief Complaint and Reason for Visit Chief Complaint ETOH Intoxication Reason for Visit Acute alcoholic intoxication Problems Medical Problem Onset Date Status Seizure Unknown Acute Past Problems Medical Problem Onset Date Status Chronic pain of left ankle Unknown Acute Alcohol use Unknown Acute Cervical transverse process fracture Unknown Acute History of recent trauma Unknown Acute Left ankle pain Unknown Acute Chronic neck pain Unknown Acute Epileptic seizure, generalized Unknown Acute Acute alcoholic intoxication Unknown Acute Medications Current Home Medications Medication [...] Date Status Hx Tobacco Use Yes 09/12/2018 4:37am Not Applicable Not Applicable Smoking Status Start Date Stop Date Current Every Day Smoker Hospital Discharge Instructions No hospital discharge instruction information available. Plan of Care Discharge Date 09/12/18 4:52pm Disposition AGAINST MEDICAL ADVICE 07 Condition at Discharge Stable Instructions/Education Provided Alcohol Poisoning (DC) Polysubstance Abuse Polysubstance Abuse (DC) Forms Provided DC Against Medical Advice Work/School Release Prescriptions See Medication Section Referrals NO PCP Note: Additional Instructions/Education Follow up with [facility] next week Ambulate with crutches Functional Status Query Response Date Recorded Onset Within the Last 7 Days No Problem Identified September 11, 2018 10:41am Allergies, Adverse Reactions, Alerts Allergen Type Severity Reaction Status Last Updated Phenytoin Allergy Unknown Active 09/10/18 Immunizations Query Response on File Recorded Date/Time HX of Pneumococcal Vaccine Unknown 09/12/18 12:21am HX of Influenza Vaccine Unknown 09/12/18 12:21am Tetanus Status Unknown 09/12/18 4:37am Vital Signs Acute Vital Signs Vital Response Date/Time Temperature (Fahrenheit) 98.8 degrees F (97.6 - 99.5) 09/12/2018 12:21am Pulse Rate (adult) 98 bpm (60 - 100) 09/12/2018 2:50pm Pulse Rate 102 bpm 09/11/2018 3:46pm Respiratory Rate 20 breaths per minute (12 - 24) 09/12/2018 2:50pm Respiratory Rate 17 breaths per minute 09/11/2018 3:46pm Blood Pressure Systolic 122 mm Hg (100 - 140) 09/12/2018 2:50pm Blood Pressure Systolic 140 mm Hg 09/11/2018 3:46pm Blood Pressure Diastolic 74 mm Hg (60 - 90) 09/12/2018 2:50pm Blood Pressure Diastolic 98 mm Hg 09/11/2018 [...] 12:43am Hemoglobin 8.0 g/dL L 13.0-17.5 09/12/2018 12:15am 09/12/2018 12:43am Hematocrit 26.9 % L 39.0-52.5 09/12/2018 12:15am 09/12/2018 12:43am Mean Corpuscular Volume 89 fL 80-94 09/12/2018 12:1509/12/2018 12:43am Mean Corpuscular Hemoglobin 26.4 pg L 27.0-33.0 09/12/2018 12:15am 09/12/2018 12:43am Mean Corpuscular Hemoglobin Concent 29.7 g/dL L 33.0-37.0 09/12/2018 12:15am 09/12/2018 12:43am Red Cell Distribution Width 14.6 % [...] and heparin studies were performed on [facility] on 11/13/17. Urine Source URINE 09/12/2018 12:55am 09/12/2018 1:05am Urine Color Colorless Yel-Macrina * 09/12/2018 12:55am 09/12/2018 1:25am Urine Appearance Clear Clear * 09/12/2018 12:55am 09/12/2018 1:25am Urine pH 6.0 5.0-8.0 09/12/2018 12:55am 09/12/2018 1:25am Urine Specific [place] 1.006 1.005-1.030 09/12/2018 12:55am 09/12/2018 1:25am Urine [...] LIZZETTE FRANZ at 0104 on 09/12/18 by [id number]. Result read-back successful. Y Troponin T Interpretation: [...] clinical findings. Urine Methamphetamines Screen Negative ng/mL Yrjiog=286 09/12/2018 12:55am 09/12/2018 1:38am Urine Propoxyphene Screen Negative ng/mL Xshvsr=376 09/12/2018 12:55am 09/12/2018 1:38am Urine Amphetamines Screen Negative ng/mL Fznxia=973 09/12/2018 12:55am 09/12/2018 1:38am Urine Buprenorphine Negative ng/mL Cutoff=10 09/12/2018 12:55am 09/12/2018 1:38am Urine Barbiturates Screen Negative ng/mL Xjsnih=821 09/12/2018 12:55am 09/12/2018 1:38am Urine Benzodiazepines Screen Positive ng/mL A Oeauzk=995 09/12/2018 12:55am 09/12/2018 1:38am Results called to CARROLL VIVAR at 0137 on 09/12/18 by Waluzi. Result read-back successful. Y Urine Cocaine Screen Negative ng/mL Mwrleo=829 09/12/2018 12:55am 09/12/2018 1:38am Urine Methadone, Qualitative Negative ng/mL Smelqb=368 09/12/2018 12:55am 09/12/2018 1:38am Urine Opiates Screen Positive ng/mL A Imwtkm=890 09/12/2018 12:55am 09/12/2018 1:38am Results called to CARROLL VIVAR at 0138 on 09/12/18 by [id number]. Result read-back successful. Y Urine Phencyclidine Screen Negative ng/mL Cutoff=25 09/12/2018 12:55am 09/12/2018 1:38am Urine Cannabinoids Negative ng/mL Cutoff=50 09/12/2018 12:55am 09/12/2018 1:38am Ur Tricyclic Antidepressants Screen Negative ng/mL Zzluhn=956 09/12/2018 12:55am 09/12/2018 1:38am Urine Oxycodone Screen Negative ng/mL Qffapa=088 09/12/2018 12:55am 09/12/2018 1:38am Urine Specific [place] 1.006 1.005-1.030 09/12/2018 12:55am 09/12/2018 1:38am Urine pH 6.0 5.0-8.0 09/12/2018 12:55am 09/12/2018 1:38am Urine Drug Screen Comment See Note 09/12/2018 12:55am 09/12/2018 1:38am If Specific [place] is <1.005 or pH is <4.0 or [...] Discharge/Depart Date Attending Provider Departed Emergency Room [facility] 09/11/18 11:59pm 09/12/18 4:52pm MANDI POPE MD Departed Emergency Room [facility] 09/11/18 10:16am 09/11/18 3:45pm PILO SHETTY MD Departed Emergency Room [facility] 09/10/18 12:58pm 09/10/18 6:52pm ROLO THOMPSON MD Departed Emergency Room [facility] 09/06/18 11:41pm 09/07/18 1:08am RANDI MONTESINOS DO Departed Emergency Room [facility] 09/06/18 6:44pm 09/06/18 8:59pm RANDI MONTESINOS DO Recent Diagnosis
--- OUTSIDE RECORDS SUMMARY | 2018-09-28 19:02 | XMS REPORT | Clinical Summary ---
Author Author [facility] Organization [facility] Address Unknown Phone Unavailable Care Team Providers Care Outcomes Specialist Name Role Phone PCP Unavailable Allergies Active [...] incisional hernia for Nausea. Miscellaneous Medical by [facility].(Non-Drug; Combo 1 Each 0 08/28/19 Active Supply [...] with delirium 07/17/2017 Emergency Emergency Medicine Norberto Garcia MD ETOH abuse (Primary Dx) - 07/18/2017 09/12/2016 Office Visit General Surgery Jose Yu MD Ventral incisional hernia Tj Lovell MD 08/20/2016 Surgery Rohit Reza MD OPEN VENTRAL HERNIA REPAIR WITH PROCEED MESH, EXTENSIVE LYSIS OF ADHESIONS. 08/19/2016 Anesthesia Nahomi Yu, Event ResidentMD 08/17/2016 Hospital Santiago Villafuerte MD Periumbilical pain; - Encounter Hernia; 08/27/2016 Ventral incisional hernia; Post-op pain after 08/07/2016 Social History Tobacco Use Types Packs/Day Years [...] Not on file Implants Implanted Type Area Pipe Layer Helper Device Expiration Model / Identifier Date Serial / Lot Proceed Surgical Mesh Anterior: 11/17/2017 [id number] / Implanted: Qty: 1 on 08/20/2016 by Abdomen / Rohit Reza MD [id number] Procedures Procedure Name Priority Date/Time Associated Diagnosis Comments OPEN VENTRAL HERNIA 08/20/2016 Hernia, ventral REPAIR WITH PROCEED MESH, 11:15 AM CDT EXTENSIVE LYSIS OF ADHESIONS. 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 2.Moderate amount of stool seen in the colon. A "PRELIMINARY" report was made available via Chatty at the time of dictation by the [...] A "PRELIMINARY" report was made available via Chatty at the time of dictation by the [...] Indication: post-op pain management Staffing Anesthesiologist: MARLENY AVRGAS RESPITE COORDINATOR/Resident: DOLORES PERSAUD Pre-procedure Checklist Completed: Patient identity confirmed. Surgical consent. Immediately prior to the procedure a time out was called. A time out verifies correct patient, procedure, equipment, emotional support teacher and site/side marked and Risk, benefits, and [...] post-op pain management Staffing Anesthesiologist: MARLENY VARGAS RESPITE COORDINATOR/Resident: DOLORES PERSAUD Pre-procedure Checklist Completed: Patient identity confirmed. Surgical consent. Immediately prior to the procedure a time out was called. A time out verifies correct patient, procedure, equipment, emotional support teacher and site/side marked and Risk, benefits, and [...] mg/dL Specimen Performing Laboratory Blood MISYS after 08/07/2016
--- OUTSIDE RECORDS SUMMARY | 2018-09-28 19:02 | XMS REPORT | Continuity of Care Document ---
Author Author [facility] Organization [facility] Address Unknown Phone Unavailable Care Team Providers Care Rope Cleaner Name Role Phone PCPNO PCP Unavailable Advance Directives Directive Response Recorded Date/Time Does the Patient have an Advance Directive? No 09/10/18 1:01pm Chief Complaint and Reason for Visit Chief Complaint Seizure Reason for Visit Seizure Left ankle pain Chronic neck pain Problems Medical Problem Onset Date Status Seizure Unknown Acute Past Problems Medical Problem Onset Date Status Chronic pain of left ankle Unknown Acute Alcohol use Unknown Acute Cervical transverse process fracture Unknown Acute History of recent trauma Unknown Acute Left ankle pain Unknown Acute Chronic neck pain Unknown Acute Medications Current Home Medications Medication Dose Units Route Directions Days Qty Instructions Start Date Acetaminophen/Codeine Phosphate (Tylenol #4) 1 Tab Tab 1 Tab Oral Every 6 Hours as needed for Pain 20 Tablet 09/10/18 Levetiracetam (Keppra) 500 Mg Tab 500 Mg Oral Twice A Day 60 Tablet 09/10/18 Social History Social History Problem Response Recorded Date/Time Onset Date Status Hx Tobacco Use Yes 09/10/2018 1:01pm Not Applicable Not Applicable Smoking Status Start Date Stop Date Current Every Day Smoker Hospital Discharge Instructions No hospital discharge instruction information available. Plan of Care Discharge Date 09/10/18 6:52pm Disposition HOME, SELF-CARE 01 Condition at Discharge Stable Instructions/Education Provided Seizures, Adult (DC) General (DC) Prescriptions See Medication Section Referrals [facility] PCP Note: [facility] Address: [address] [place] [address] Additional Instructions/Education 1. Thank you for allowing [...] have received a prescription, please fill it IMMEDIATELY upon leaving the Emergency Department and follow the instructions carefully. The 3 closest pharmacies that are available 24 hrs a day are: - [facility] [address] [place] [address]. - [facility] [address] [id number]. Phone # - [phone] - [place] [address] [facility] [address]. 4. Follow up immediately with your regular [...] of the results from our Emergency Department. [facility] phone # [phone]. Please obtain a copy of the results immediately to follow up with your PCP. Ask for medical records. This must be done immediately within 24-48 hours. This is important for continuity of care and if not done, may lead to further issues in your medical care. Also you may obtain a copy of your medical records by calling phone # [phone]. Take these copies to your Primary care physician immedaitely. Failure to do this can lead to future debilitating or lfie threatening conditions. 5. If you do NOT have a primary care doctor, please call and make an appointment with one of the following options: [facility] Find a Physician Line: [facility] [address] [facility] [address]. . [facility] [address] [facility] [address]. [place] [address] [facility] [address]. [facility] [address] Tristen Alonso [facility] [address]. They may provide you with an alternate address for followup. Please make appointment immediately. Failure to do so could lead to issues in your medical care, debilitating, or life threatening conditions. This is important for continuity of care. [...] treatment. 1. [facility] Find a Physician Referral Line.................................................[phone] 2. [facility] [address] [place] [address] ....[phone] .. 4. [facility] [address] [place], [place] ...[phone] 5. [facility].......................[phone] 6. [facility] [place] [address]..............[phone] 7. [facility] [place] [address] ....[phone] 8. [facility] [address] [place], [place] .....[phone] 9. [facility], [address] [facility] [address],[place], [place] [phone] 10. [facility] [place], [place] .................................[phone] 11. [facility] ([facility]), ............[phone] [address] [place], [place] 12. Family [facility] ................................................[phone] 13. [facility] ......................................................[phone] 14. Intake and Crisis/[facility] ..............[phone] [place] [address] 15. [facility], [address] [place] [address] .................[phone] SUBSTANCE ABUSE ACCESS [facility] (SETT) [address], [place] [phone] PRIVATE/PUBLIC SERVICES *Assists with Medication (if the client is an established patient) [facility]: [facility] ........................[phone] [facility]: *[employer] ...........................................[phone] *[facility] [place] ...........................[phone] *[facility] [place] ........................[phone] [facility] [place] ................................[phone] [facility] ...................................[phone] [facility] Clinic ......................................[phone] [facility]: *[facility] (Open M,W,F 9:00am-12:00pm) ..........[phone] *[facility] (Open M,W,F 10:00am-2:00pm) ..........[phone] [facility] ......................................[phone] [facility] ........................................[phone] *[facility]-(Pct.1&2) [phone] *[facility]-(Pct.1&2) ..[phone] [facility] .........[phone] [facility] .......[phone] [facility]...... [phone] [facility] ...................................[phone] [facility]: *[facility] (Assist time 1 year) ......................[phone] *[facility] (Assist time 1 year) ............[phone] *JEANETTE Lewis (only [address] zip code) .........................[phone] *[facility] .......................[phone] [facility] .................................[phone] [facility] .....................................[phone] [facility] ........................[phone] [facility] Pre- Clinic ......................................[phone] [facility] (Referrals Only) ..........[phone] [facility]: *[facility] .................................[phone] *[facility] ..................................[phone] [facility] ..............[phone] [facility] ..............................................[phone] [facility] .................................[phone] [facility] .............................................[phone] [facility] .................................[phone] [facility]: *[facility] ...................................[phone] *[facility] (pct 1&2) [phone] [facility] .......................................[phone] [facility]: *[facility] Services ............................[phone] *[facility] .....................................[phone] *[facility] ..........................[phone] *[facility] ....................................[phone] [facility] .......................................[phone] [facility] .......................................[phone] [facility] ........................................[phone] ADDITIONAL SUGGESTIONS FOR MEDICATION ASSISTANCE: The Medicine Program INTERNET: http://www.[employer] [address] email: [email or web address]@[email or web address] [place] [address] Phone: Helps people apply for enrollment in one or more of the many patient assistance programs available through the [employer]. There is a $5.00 processing fee which is refundable if there is no program available. If the patient is approved the medications are sent to a physician's office to be dispensed. The patient should inquire at their physicians office before enrolling in this program. [employer]: INTERNET: http://www.volunteersinhealthcare.org Web site that provides information and eligibility on medication assistance programs through [employer]. The web site is information only--the patient [...] smart phone, there is an application called [employer]. This jane assists with finding the cheapest prescription in the area. Functional Status Query Response Date Recorded Onset Within the Last 7 Days No Problem Identified September 10, 2018 1:01pm Allergies, Adverse Reactions, Alerts Allergen Type Severity Reaction Status Last Updated Phenytoin Allergy Unknown Active 09/10/18 Immunizations Query Response on File Recorded Date/Time HX of Pneumococcal Vaccine No 09/10/18 1:01pm HX of Influenza Vaccine No 09/10/18 1:01pm Tetanus Status Unknown 09/10/18 1:01pm Vital Signs Acute Vital Signs Vital Response Date/Time Temperature (Fahrenheit) 97.7 degrees F (97.6 - 99.5) 09/10/2018 6:51pm Pulse Rate (adult) 103 bpm (60 - 100) 09/10/2018 6:44pm Pulse Rate 103 bpm 09/10/2018 6:51pm Respiratory Rate 20 breaths per minute (12 - 24) 09/10/2018 6:44pm Respiratory Rate 20 breaths per minute 09/10/2018 6:51pm Blood Pressure Systolic 159 mm Hg (100 - 140) 09/10/2018 6:44pm Blood Pressure Systolic 159 mm Hg 09/10/2018 6:51pm Blood Pressure Diastolic 93 mm Hg (60 - 90) 09/10/2018 6:44pm Blood Pressure Diastolic 93 mm Hg 09/10/2018 6:51pm Height 5 ft 8 in 09/10/2018 12:45pm Weight 234 lb 09/10/2018 12:45pm Body Mass Index 35.6 kg/m^2 09/10/2018 12:45pm Results Laboratory Results Test Name Result Units [...] 7:04pm 09/06/2018 7:58pm Urine Source URINE 09/06/2018 6:09/06/2018 7:13pm Urine Color Colorless Yel-Macrina * 09/06/2018 6:28pm 09/06/2018 7:19pm Urine Appearance Clear Clear * 09/06/2018 6:28pm 09/06/2018 7:19pm Urine pH 5.5 5.0-8.0 09/06/2018 6:28pm 09/06/2018 7:19pm Urine Specific [place] 1.011 1.005-1.030 09/06/2018 6:28pm 09/06/2018 7:19pm Urine Protein 20 mg/dL H Negative * 09/06/2018 6:28pm 09/06/2018 7:19pm Urine Glucose (UA) 70 mg/dL H Negative * 09/06/2018 6:28pm 09/06/2018 7:19pm Urine Ketones Negative mg/dL Negative * 09/06/2018 6:pm 09/06/2018 7:19pm Urine Occult Blood Negative Negative * 09/06/2018 6:09/06/2018 7:19pm Urine Nitrite Negative Negative 09/06/2018 6:09/06/2018 7:19pm Urine Bilirubin Negative mg/dL Negative 09/06/2018 6:pm 09/06/2018 7:19pm Urine Urobilinogen Negative mg/dL 0.0-1.0 09/06/2018 6:09/06/2018 7:19pm Urine Leukocyte Esterase Negative Teo/uL Negative 09/06/2018 6:28pm 09/06/2018 7:19pm Microscopic Urinalysis (T) ----- 09/06/2018 6:09/06/2018 7:19pm Urine RBC 0-2 /HPF 0-2 09/06/2018 6:28pm 09/06/2018 7:23pm Urine WBC 0-5 /HPF 0-5 09/06/2018 6:28pm 09/06/2018 7:23pm Urine Epithelial Cells None Seen /HPF Few 09/06/2018 6:28pm 09/06/2018 7:23pm Urine Crystals None Seen /HPF None * 09/06/2018 6:28pm 09/06/2018 7:23pm Urine Bacteria None Seen /HPF None 09/06/2018 6:28pm 09/06/2018 7:23pm Urine Casts None Seen /LPF None [...] Blood Count 3.15 10*6/uL L 4.4-6.2 09/10/2018 4:00am 09/10/2018 2:31pm Hemoglobin 8.5 g/dL L 13.0-17.5 09/10/2018 4:00am 09/10/2018 2:31pm Hematocrit 27.4 % L 39.0-52.5 09/10/2018 4:00am 09/10/2018 2:31pm Mean Corpuscular Volume 87 fL 80-94 09/10/2018 4:00am 09/10/2018 2:31pm Mean Corpuscular Hemoglobin 27.0 pg 27.0-33.0 09/10/2018 4:00am 09/10/2018 2:31pm Mean Corpuscular Hemoglobin Concent 31.0 g/dL L 33.0-37.0 09/10/2018 4:00am 09/10/2018 2:31pm Red Cell Distribution Width 14.6 % H 10.7-14.5 09/10/2018 4:00am 09/10/2018 2:31pm Platelet Count 332 10*3/uL 150-450 09/10/2018 4:00am 09/10/2018 2:31pm Mean Platelet Volume 8.6 fl 5.7-10.7 09/10/2018 4:0009/10/2018 2:31pm Neutrophils (%) (Auto) 68 % 47-75 09/10/2018 4:0009/10/2018 2:31pm Immature Granulocyte % (Auto) 1 % H 0-0 09/10/2018 4:0009/10/2018 2:31pm Lymphocytes (%) (Auto) 20 % L 25-44 09/10/2018 4:0009/10/2018 2:31pm Monocytes (%) (Auto) 10 % 3-10 09/10/2018 4:0009/10/2018 2:31pm Eosinophils (%) (Auto) 2 % 0-7 09/10/2018 4:0009/10/2018 2:31pm Basophils (%) (Auto) 1 % 0-1 09/10/2018 4:0009/10/2018 2:31pm Nucleated Red Blood Cells % 0.0 % 0-0.2 09/10/2018 4:0009/10/2018 2:31pm Neutrophils # (Auto) 7.0 10*3/uL H 1.3-6.7 09/10/2018 4:0009/10/2018 2:31pm Immature Granulocyte # (Auto) 0.1 10*3/uL H 0.0-0.0 09/10/2018 4:0009/10/2018 2:31pm Lymphocytes # (Auto) 2.0 10*3/uL 1.4-4.1 09/10/2018 4:0009/10/2018 2:31pm Monocytes # (Auto) 1.0 10*3/uL 0-1.3 09/10/2018 4:0009/10/2018 2:31pm Eosinophils # (Auto) 0.2 10*3/uL 0-0.8 09/10/2018 4:0009/10/2018 2:31pm Basophils # (Auto) 0.1 10*3/uL 0-0.1 09/10/2018 4:0009/10/2018 2:31pm Nucleated Red Blood Cells # 0.00 10*3/uL 0-0.01 09/10/2018 4:0009/10/2018 2:31pm Manual Differential Not Ind 09/10/2018 4:00am 09/10/2018 2:31pm Sodium Level 134 mmol/L L 136-145 [...] 4:00am 09/10/2018 2:57pm Results called to RASHAWN OWENS/TARSHA at 1456 on 09/10/18 by [id number]. Result read-back successful. Y This assay for Ethanol is intended for MEDICAL USE ONLY and should be correlated with clinical findings. Urine Methamphetamines Screen Negative ng/mL Mecpao=426 09/10/2018 2:00pm 09/10/2018 2:38pm Urine Propoxyphene Screen Negative ng/mL Yhfkiq=828 09/10/2018 2:00pm 09/10/2018 2:38pm Urine Amphetamines Screen Negative ng/mL Rahrck=832 09/10/2018 2:00pm 09/10/2018 2:38pm Urine Buprenorphine Negative ng/mL Cutoff=10 09/10/2018 2:00pm 09/10/2018 2:38pm Urine Barbiturates Screen Negative ng/mL Xipgdz=463 09/10/2018 2:00pm 09/10/2018 2:38pm Urine Benzodiazepines Screen Positive ng/mL A Ccgvtb=273 09/10/2018 2:00pm 09/10/2018 2:38pm Results called to JUVENTINO CALDERON at 1438 on 09/10/18 by [id number]. Result read-back successful. Y Urine Cocaine Screen Negative ng/mL Ithgkv=114 09/10/2018 2:00pm 09/10/2018 2:38pm Urine Methadone, Qualitative Negative ng/mL Craxvr=753 09/10/2018 2:00pm 09/10/2018 2:38pm Urine Opiates Screen Negative ng/mL Nendfq=145 09/10/2018 2:00pm 09/10/2018 2:38pm Urine Phencyclidine Screen Negative ng/mL Cutoff=25 09/10/2018 2:00pm 09/10/2018 2:38pm Urine Cannabinoids Negative ng/mL Cutoff=50 09/10/2018 2:00pm 09/10/2018 2:38pm Ur Tricyclic Antidepressants Screen Negative ng/mL Xqosfh=580 09/10/2018 2:00pm 09/10/2018 2:38pm Urine Oxycodone Screen Negative ng/mL Yryyvg=699 09/10/2018 2:00pm 09/10/2018 2:38pm Urine Specific [place] 1.009 1.005-1.030 09/10/2018 2:00pm 09/10/2018 2:15pm Urine pH 6.0 5.0-8.0 09/10/2018 2:00pm 09/10/2018 2:15pm Urine Drug Screen Comment See Note 09/10/2018 2:00pm 09/10/2018 2:38pm If Specific [place] is <1.005 or pH is <4.0 or [...] ECG (electrocardiogram) Completed 09/10/18 ROLO THOMPSON MD Encounters Encounter Location Arrival/Admit Date Discharge/Depart Date Attending Provider Departed Emergency Room [facility] 09/10/18 12:58pm 09/10/18 6:52pm ROLO THOMPSON MD Departed Emergency Room [facility] 09/06/18 11:41pm 09/07/18 1:08am RANDI MONTESINOS DO Departed Emergency Room [facility] 09/06/18 6:44pm 09/06/18 8:59pm RANDI MONTESINOS DO Recent Diagnosis
--- OUTSIDE RECORDS SUMMARY | 2018-09-28 19:02 | XMS REPORT | Continuity of Care Document ---
Author Author [facility] Organization [facility] Address Unknown Phone Unavailable Support Name Relationship Address Phone RANDI MONTESINOS DO Caregiver [address] [place] [address] Advance Directives Directive Response Recorded Date/Time Does the Patient have an Advance Directive? No 09/06/18 11:16pm Chief Complaint and Reason for Visit Chief Complaint Extremity Pain/Swelling NonTra Reason for Visit Chronic pain of left ankle Alcohol use [id number] History of recent trauma Problems Medical Problem Onset Date Status Seizure Unknown Acute Past Problems Medical Problem Onset Date Status Chronic pain of left ankle Unknown Acute Alcohol use Unknown Acute Cervical transverse process fracture Unknown Acute History of recent trauma Unknown Acute Medications No medication information available. Social History Social History Problem Response Recorded Date/Time Onset Date Status Hx Tobacco Use Yes 09/07/2018 12:16am Not Applicable Not Applicable Hospital Discharge Instructions No hospital discharge instruction information available. Plan of Care Discharge Date 09/07/18 1:08am Disposition HOME, SELF-CARE 01 Condition at Discharge Stable Instructions/Education Provided Neck Fracture Alcohol Use - When Is Drinking a Problem? Muscle and Bone Pain (DC) Forms Provided Procedures & Tests Performed Work/School Release Prescriptions See Medication Section Referrals [facility] Address: [address] [place] [address] FARRAH SIMMONS MD Address: [address] [place] [address] Additional Instructions/Education Continue to wear cervical collar as instructed by your physician. Can swap our cervical collar for the collar that was given to you prior to your discharge from your recent traumatic injury. If you cannot follow-up with that physician, I have also given you follow-up instructions with a neurosurgeon. Functional Status Query Response Date Recorded Onset Within the Last 7 Days No Problem Identified September 06, 2018 11:16pm Allergies, Adverse Reactions, Alerts Allergen Type Severity Reaction Status Last Updated NO KNOWN ALLERGY Allergy Unknown Active 09/06/18 Immunizations Query Response on File Recorded Date/Time HX of Pneumococcal Vaccine Unknown 09/06/18 11:16pm HX of Influenza Vaccine Unknown 09/06/18 11:16pm Tetanus Status Unknown 09/07/18 12:16am Vital Signs Acute Vital Signs Vital Response Date/Time Temperature (Fahrenheit) 98.0 degrees F (97.6 - 99.5) 09/07/2018 1:07am Pulse Rate (adult) 98 bpm (60 - 100) 09/06/2018 11:18pm Pulse Rate 88 bpm 09/07/2018 1:07am Respiratory Rate 22 breaths per minute (12 - 24) 09/06/2018 11:18pm Respiratory Rate 15 breaths per minute 09/07/2018 1:07am Blood Pressure Systolic 141 mm Hg (100 - 140) 09/06/2018 11:18pm Blood Pressure Systolic 141 mm Hg 09/07/2018 1:07am Blood Pressure Diastolic 84 mm Hg (60 - 90) 09/06/2018 11:18pm Blood Pressure Diastolic 75 mm Hg 09/07/2018 1:07am Height 5 ft 7 in 09/06/2018 11:12pm Weight 260 lb 09/06/2018 11:12pm Body Mass Index 40.7 kg/m^2 09/06/2018 11:18pm Results Laboratory Results Test Name Result Units [...] 5.0-8.0 09/06/2018 6:28pm 09/06/2018 7:19pm Urine Specific [place] 1.011 1.005-1.030 09/06/2018 6:28pm 09/06/2018 7:19pm Urine [...] Crystals None Seen /HPF None * 09/06/2018 6:pm 09/06/2018 7:23pm Urine Bacteria None Seen /HPF None 09/06/2018 6:pm 09/06/2018 7:23pm Urine Casts None Seen /LPF None * 09/06/2018 6:pm 09/06/2018 7:23pm Urine Hyaline Casts None Seen /LPF 0-1 09/06/2018 6:28pm 09/06/2018 7:23pm Urine Yeast None Seen /HPF None 09/06/2018 6:09/06/2018 7:23pm Urinalysis Comment * * 09/06/2018 6:09/06/2018 7:19pm Ref Range=* Clinical evaluation required. Urine [...] clinical findings. Urine Methamphetamines Screen Negative ng/mL Nykgrx=278 09/06/2018 6:28pm 09/06/2018 7:34pm Urine Propoxyphene Screen Negative ng/mL Qbjfxi=029 09/06/2018 6:28pm 09/06/2018 7:34pm Urine Amphetamines Screen Negative ng/mL Otpnqd=679 09/06/2018 6:28pm 09/06/2018 7:34pm Urine Buprenorphine Negative ng/mL Cutoff=10 09/06/2018 6:28pm 09/06/2018 7:34pm Urine Barbiturates Screen Negative ng/mL Gxrvfq=218 09/06/2018 6:28pm 09/06/2018 7:34pm Urine Benzodiazepines Screen Positive ng/mL A Udyxeh=841 09/06/2018 6:28pm 09/06/2018 7:34pm Results called to VERITO RETANA at 1933 on 09/06/18 by [email or web address]. Result read-back successful. Y Urine Cocaine Screen Negative ng/mL Uajeec=584 09/06/2018 6:28pm 09/06/2018 7:34pm Urine Methadone, Qualitative Negative ng/mL Gcubji=855 09/06/2018 6:28pm 09/06/2018 7:34pm Urine Opiates Screen Negative ng/mL Moqtlv=507 09/06/2018 6:28pm 09/06/2018 7:34pm Urine Phencyclidine Screen Negative ng/mL Cutoff=25 09/06/2018 6:28pm 09/06/2018 7:34pm Urine Cannabinoids Negative ng/mL Cutoff=50 09/06/2018 6:28pm 09/06/2018 7:34pm Ur Tricyclic Antidepressants Screen Negative ng/mL Rywmiy=885 09/06/2018 6:28pm 09/06/2018 7:34pm Urine Oxycodone Screen Negative ng/mL Rbdlph=770 09/06/2018 6:28pm 09/06/2018 7:34pm Urine Specific [place] 1.011 1.005-1.030 09/06/2018 6:28pm 09/06/2018 7:34pm Urine pH 5.5 5.0-8.0 09/06/2018 6:28pm 09/06/2018 7:34pm Urine Drug Screen Comment See Note 09/06/2018 6:28pm 09/06/2018 7:34pm If Specific [place] is <1.005 or pH is <4.0 or [...] without contrast Completed 09/06/18 RANDI MONTESINOS DO Encounters Encounter Location Arrival/Admit Date Discharge/Depart Date Attending Provider Departed Emergency Room [facility] 09/06/18 11:41pm 09/07/18 1:08am RANDI MONTESINOS DO Departed Emergency Room [facility] 09/06/18 6:44pm 09/06/18 8:59pm RANDI MONTESINOS DO Recent Diagnosis
--- OUTSIDE RECORDS SUMMARY | 2018-09-28 19:03 | XMS REPORT | Continuity of Care Document ---
Author Author [facility] Organization [facility] Address Unknown Phone Unavailable Care Team Providers Care Dragline Operator Helper Name Role Phone SELWYN WIN MD Attphys Carson Nicole MD Admphys PCPNO PCP Unavailable Insurance Providers Guarantor Robert Russo Address [address] [place] [id number] Email N Payer Medicaid [place] Policy Number [id number] Subscriber's Name Robert Vega Relationship Self / Same As Patient Effective Date 18 Advance Directives Directive Response Recorded Date/Time Does the Patient have an Advance Directive? No 09/03/18 3:50am Chief Complaint and Reason for Visit Chief Complaint ACUTE ALCOHOL INTOXICATION, POSTPERATIVE PAIN, Reason for Visit Acetaminophen overdose Ankle fracture, left Alcohol use disorder History of diabetes mellitus History of chronic hypertension Acetaminophen overdose Ankle fracture, left Alcohol use disorder Probable underlying antisocial personality traits or disorder Problems Medical Problem Onset Date Status History of diabetes mellitus Unknown Chronic History of chronic hypertension Unknown Chronic Acetaminophen overdose Unknown Acute Ankle fracture, left Unknown Chronic Alcohol use disorder Unknown Probable underlying antisocial personality traits or disorder Unknown Past Problems Medical Problem Onset Date Status Postoperative pain Unknown Acute Postoperative pain Unknown Acute Suicide attempt by acetaminophen overdose Unknown Acute Postoperative pain Unknown Acute Acute alcohol intoxication Unknown Acute Medications Current Home Medications Medication Dose Units Route Directions Days Qty Instructions Start Date Famotidine (Pepcid) 20 Mg Tab 20 Mg Oral Twice A Day 20 Tablet 09/04/18 Ketorolac Tromethamine (Toradol) 10 Mg Tab 10 Mg Oral Every 6 - 8 Hours for Pain 20 Tablet 09/04/18 Social History Social History Problem Response Recorded Date/Time Onset Date Status Hx Tobacco Use Y - 1 PPD 09/03/2018 7:38pm Not Applicable Not Applicable Smoking Status Start Date Stop Date Current Every Day Smoker Hospital Discharge Instructions Patient Instructions Physician Instructions Discharge Follow Up: Fm/Pt to Make Appointment - f/u with Ortho physician outpatient in [place] in 2-3 weeks Exercise Instructions: Activity as Tolerated Diet Instruction: Regular Nursing Instructions Discharge Transportation: Private Automobile Accompanied By: Family Belongings Sent Home with Patient: Yes Additional Discharge Information: FOLLOWUP ORDERED Pt/Fm/Caregiver Expressed Understanding of Portal Enrollment: Yes Pt/Family/Caregiver Received Discharge Home Medication List: Yes Prescription(s) Given: Yes Discharge Care Plan #1 Problem: DISCHARGE INSTRUCTIONS Goal: PATIENT WILL VERBALIZE UNDERSTANDING OF DISCHARGE INSTRUCTIONS Instructions: FOLLOW ALL DISCHARGE INSTRUCTIONS AND KEEP FOLLOWUP APPOINTMENTS. TAKE MEDICATIONS PRESCRIBED BY THE DOCTOR. RETURN TO THE EMERGENCY ROOM IF SYMPTOMS WORSEN. Plan of Care Discharge Date 09/04/18 3:30pm Disposition HOME, SELF-CARE 01 Instructions/Education Provided Acetaminophen Poisoning (DC) Alcohol Withdrawal (DC) Forms Provided Antimicrobial Stewardship General Discharge Instructions Prescription Opioid Safety Prescriptions See Medication Section Functional Status Query Response Date Recorded Onset Within the Last 7 Days No Problem Identified September 03, 2018 3:50am Allergies, Adverse Reactions, Alerts Allergen Type Severity Reaction Status Last Updated Phenytoin Allergy Unknown Active 08/31/18 Immunizations Query Response on File Recorded Date/Time HX of Pneumococcal Vaccine Unknown 09/02/18 4:42pm HX of Influenza Vaccine Unknown 09/02/18 4:42pm Tetanus Status Unknown 09/02/18 4:42pm Vital Signs Acute Vital Signs Vital Response Date/Time Temperature (Fahrenheit) 98.5 degrees F (97.6 - 99.5) 09/04/2018 12:00pm Pulse Rate (adult) 98 bpm (60 - 100) 09/04/2018 12:00pm Pulse Rate 103 bpm 09/01/2018 7:56pm Respiratory Rate 18 breaths per minute (12 - 24) 09/04/2018 12:00pm Respiratory Rate 18 breaths per minute 09/01/2018 7:56pm Blood Pressure Systolic 167 mm Hg (100 - 140) 09/04/2018 12:00pm Blood Pressure Systolic 150 mm Hg 09/01/2018 7:56pm Blood Pressure Diastolic 140 mm Hg (60 - 90) 09/04/2018 12:00pm Blood Pressure Diastolic 99 mm Hg 09/01/2018 7:56pm Height 5 ft 8 in 09/02/2018 4:42pm Weight 230 lb 09/02/2018 4:42pm Body Mass Index 35.0 kg/m^2 09/03/2018 3:50am Results Laboratory Results Test Name Result Units Flags Reference Collection Date/Time Result Date/Time Comments White Blood Count 10.9 10*3/uL H 4.5-10.0 09/03/2018 7:00am 09/03/2018 7:20am Red Blood Count 3.63 10*6/uL L 4.70-6.10 09/03/2018 7:00am 09/03/2018 7:20am Hemoglobin 10.0 g/dL L 14.0-18.0 09/03/2018 7:00am 09/03/2018 7:20am Hematocrit 30.8 % L 42.0-52.0 09/03/2018 7:00am 09/03/2018 7:20am Mean Corpuscular Volume 84.8 fL 80.0-97.0 09/03/2018 7:00am 09/03/2018 7:20am Mean Corpuscular Hemoglobin 27.5 pg 27.0-32.0 09/03/2018 7:00am 09/03/2018 7:20am Mean Corpuscular Hemoglobin Concent 32.5 % 32.0-36.0 09/03/2018 7:00am 09/03/2018 7:20am Red Cell Distribution Width 14.0 % 0.0-15.5 09/03/2018 7:00am 09/03/2018 7:20am Platelet Count 272 10*3/uL 130-400 09/03/2018 7:00am 09/03/2018 7:20am Mean Platelet Volume 8.2 fL L 9.2-12.2 09/03/2018 7:00am 09/03/2018 7:20am Neutrophils (%) (Auto) 71.9 % 50-80 09/03/2018 7:00am 09/03/2018 7:20am Immature Granulocyte % (Auto) 0.40 % 0.0-0.43 09/03/2018 7:00am 09/03/2018 7:20am Lymphocytes (%) (Auto) 16.3 % L 20.0-45.0 09/03/2018 7:00am 09/03/2018 7:20am Monocytes (%) (Auto) 8.6 % 2-10 09/03/2018 7:00am 09/03/2018 7:20am Eosinophils (%) (Auto) 2.1 % 0-7 09/03/2018 7:00am 09/03/2018 7:20am Basophils (%) (Auto) 0.7 % 0-3 09/03/2018 7:00am 09/03/2018 7:20am Nucleated Red Blood Cells % 0.0 % 0-0.2 09/03/2018 7:00am 09/03/2018 7:20am Neutrophils # (Auto) 7.9 10*3/uL H 1.4-7.0 09/03/2018 7:00am 09/03/2018 7:20am Immature Granulocyte # (Auto) 0.0400 thou/uL H 0.0-0.0310 09/03/2018 7:00am 09/03/2018 7:20am Lymphocytes # (Auto) 1.8 10*3/uL 1.2-4.0 09/03/2018 7:00am 09/03/2018 7:20am Monocytes # (Auto) 0.9 10*3/uL H 0.1-0.8 09/03/2018 7:00am 09/03/2018 7:20am Eosinophils # (Auto) 0.2 10*3/uL 0.0-0.6 09/03/2018 7:00am 09/03/2018 7:20am Basophils # (Auto) 0.1 10*3/uL 0.0-0.3 09/03/2018 7:00am 09/03/2018 7:20am Nucleated Red Blood Cells # 0.000 thou/uL 0-0.012 09/03/2018 7:00am 09/03/2018 7:20am Prothrombin Time 12.1 sec 10.2-12.9 09/03/2018 7:00am 09/03/2018 7:35am Prothromb Time International Ratio 1.1 INR 0.9-1.1 09/03/2018 7:00am 09/03/2018 7:35am Activated Partial Thromboplast Time 30.0 sec 25.1-36.5 09/03/2018 7:00am 09/03/2018 7:35am PTT Critical Values: non-therapeutic: +/> 90 seconds therapeutic: +/> 180 seconds CONTACT CLINICAL PHARMACIST FOR ASSISTANCE WITH HEPARIN PROTOCOLS. Urine Color Yellow Yellow 09/02/2018 7:42pm 09/02/2018 8:10pm Urine Appearance CLEAR Clear 09/02/2018 7:42pm 09/02/2018 8:10pm Urine pH 5.5 pH 5.0-8.0 09/02/2018 7:42pm 09/02/2018 8:10pm Urine Specific [place] 1.025 1.005-1.030 09/02/2018 7:42pm 09/02/2018 8:10pm Urine Protein 100 mg/dL H Negative 09/02/2018 7:42pm 09/02/2018 8:10pm Urine Glucose (UA) Negative mg/dL Negative 09/02/2018 7:42pm 09/02/2018 8:10pm Urine Ketones Negative mg/dL Negative 09/02/2018 7:42pm 09/02/2018 8:10pm Urine Occult Blood Negative Negative 09/02/2018 7:42pm 09/02/2018 8:10pm Urine Nitrite Negative Negative 09/02/2018 7:42pm 09/02/2018 8:10pm Urine Bilirubin Negative Negative 09/02/2018 7:42pm 09/02/2018 8:10pm Urine Urobilinogen Normal mg/dL Normal 09/02/2018 7:42pm 09/02/2018 8:10pm Urine Leukocyte Esterase Negative Negative 09/02/2018 7:42pm 09/02/2018 8:10pm Urine RBC 0-2 /HPF 0-2 09/02/2018 7:42pm 09/02/2018 8:10pm Urine WBC 0-2 /HPF 0-2 09/02/2018 7:42pm 09/02/2018 8:10pm Urine Squamous Epithelial Cells 1+ Few /LPF 0 - 1+ 09/02/2018 7:42pm 09/02/2018 8:10pm Urine Bacteria +/- Rare /HPF 0-+/- 09/02/2018 7:42pm 09/02/2018 8:10pm Urine Culture Indicated No, Criteria Not Met 09/02/2018 7:42pm 09/02/2018 8:10pm Sodium Level 132 mmol/L 131-143 09/03/2018 7:0009/03/2018 7:51am Potassium Level 4.2 mmol/L 3.5-5.1 09/03/2018 7:0009/03/2018 7:51am Chloride Level 97 mmol/L L 98-107 09/03/2018 7:0009/03/2018 7:51am Carbon Dioxide Level 25 mmol/L 21-32 09/03/2018 7:0009/03/2018 7:49am Anion Gap 10.0 mmol/L 3.0-11.0 09/03/2018 7:0009/03/2018 7:51am Blood Urea Nitrogen 10.0 mg/dL 7.0-18.0 09/03/2018 7:0009/03/2018 7:49am Creatinine 0.733 mg/dL 0.700-1.30 09/03/2018 7:0009/03/2018 7:52am Estimat Glomerular Filtration Rate > 60 >60 09/03/2018 7:0009/03/2018 7:52am Glucose Level 134 mg/dL H 74-106 09/03/2018 7:0009/03/2018 7:49am Calcium Level 9.0 mg/dL 8.5-10.1 09/03/2018 7:0009/03/2018 7:48am Total Bilirubin 0.5 mg/dL 0.2-1.0 09/03/2018 7:0009/03/2018 7:53am Direct Bilirubin 0.2 mg/dL 0.0-0.2 09/03/2018 7:0009/03/2018 7:51am Indirect Bilirubin 0.3 mg/dL 09/03/2018 7:0009/03/2018 7:53am Aspartate Amino Transf (AST/SGOT) 20 U/L 15-37 09/03/2018 7:0009/03/2018 7:52am Alanine Aminotransferase (ALT/SGPT) 31 U/L 16-61 09/03/2018 7:0009/03/2018 7:51am Total Protein 7.0 g/dL 6.4-8.2 09/03/2018 7:0009/03/2018 7:53am Albumin 3.8 g/dL 3.4-5.0 09/03/2018 7:0009/03/2018 7:49am Alkaline Phosphatase 120 U/L H 45-117 09/03/2018 7:00am 09/03/2018 7:54am Mean Blood Glucose 114 mg/dL 09/03/2018 7:00am 09/03/2018 7:45am Hemoglobin A1c 6.0 % 4.2-6.3 09/03/2018 7:00am 09/03/2018 7:45am Ranges for Hemoglobin A1C in diabetic patients: Hemoglobin A1C Degree of glucose control <7.0% Well-controlled >8.0% Poorly-controlled Degrees of glucose control based on goals set by the [place] [employer]. Thyroid Stimulating Hormone (TSH) 4.680 uIU/mL H 0.358-3.74 09/02/2018 4:55pm 09/02/2018 5:38pm Acetaminophen Level < 2.0 ug/mL L 10.0-30.0 09/03/2018 7:00am 09/03/2018 7:52am Salicylates Level 3.2 mg/dL 2.8-20.0 09/02/2018 4:55pm 09/02/2018 5:29pm Ethyl Alcohol Level 249.0 mg/dL 09/02/2018 4:55pm 09/02/2018 5:25pm Urine Amphetamines Screen Negative Negative 09/02/2018 7:42pm 09/02/2018 8:25pm Cut-off value for Amphetamine, Urine is 1000 ng/mL. Urine Barbiturates Screen Negative Negative 09/02/2018 7:42pm 09/02/2018 8:25pm Cut-off value for Barbiturates, Urine is 200 ng/mL. Urine Benzodiazepines Screen Positive H Negative 09/02/2018 7:42pm 09/02/2018 8:25pm Positive urine drug screen results are unconfirmed and are to be used for medical purposes only. If confirmation is necessary, please contact the laboratory within seven days of specimen received date. Cut-off value for Benzodiazepine, Urine is 200 ng/mL. Urine Cocaine Screen Negative Negative 09/02/2018 7:42pm 09/02/2018 8:25pm Cut-off value for Cocaine, Urine is 300 ng/mL. Urine Methadone, Qualitative Negative Negative 09/02/2018 7:42pm 09/02/2018 8:25pm Cut-off value for Methadone, Urine is 300 ng/mL. Urine Opiates Screen Negative Negative 09/02/2018 7:42pm 09/02/2018 8:25pm Cut-off value for Opiates, Urine is 300 ng/mL. Urine Phencyclidine Screen Negative Negative 09/02/2018 7:42pm 09/02/2018 8:25pm Cut-off value for Phencyclidine, Urine is 25 ng/mL. Urine Cannabinoids Negative Negative 09/02/2018 7:42pm 09/02/2018 8:25pm Cut-off value for Cannabinoids, Urine is 50 ng/mL. Urine pH 5.5 5.0-8.0 09/02/2018 7:42pm 09/02/2018 8:25pm Arterial Blood pH 7.405 7.350-7.450 09/02/2018 5:09/02/2018 5:31pm Arterial Blood Partial Pressure CO2 26.9 mmHg CL 35.0-45.0 09/02/2018 5:09/02/2018 5:31pm Arterial Blood Partial Pressure O2 93.6 mmHg 75.0-100.0 09/02/2018 5:09/02/2018 5:31pm Arterial Blood HCO3 16.5 mmHg L 22.0-25.0 09/02/2018 5:09/02/2018 5:31pm Arterial Blood Base Excess -6.9 mmol/L L -2-2 09/02/2018 5:09/02/2018 5:31pm Arterial Blood Oxygen Saturation 96.5 % 95.0-98.0 09/02/2018 5:09/02/2018 5:31pm Arterial Blood Carboxyhemoglobin 0.3 % L 0.5-1.5 09/02/2018 5:09/02/2018 5:31pm Arterial Blood Methemoglobin 0.3 % 0.0-1.5 09/02/2018 5:09/02/2018 5:31pm Arterial Blood Oxyhemoglobin 95.9 % 94.0-97.0 09/02/2018 5:09/02/2018 5:31pm Reduced Hemoglobin 3.5 % 0.0-5.0 09/02/2018 5:09/02/2018 5:31pm Blood Gas Specimen Type Blood Arterial 09/02/2018 5:09/02/2018 5:31pm Blood Gas Puncture Site Left Radial 09/02/2018 5:21pm 09/02/2018 5:31pm Arturo Test Yes 09/02/2018 5:21pm 09/02/2018 5:31pm Blood Gas Vent Mode ROOM AIR 09/02/2018 5:21pm 09/02/2018 5:31pm Blood Gas Flow-by 21.00 09/02/2018 5:21pm 09/02/2018 5:31pm Blood Gas Critical Value Called To DR. FRAIRE 09/02/2018 5:pm 09/02/2018 5:31pm Blood Gas Notified Time [id number] 09/02/2018 5:21pm 09/02/2018 5:31pm Blood Kiss Machine Operator Identification [id number] 09/02/2018 5:pm 09/02/2018 5:31pm Blood Gas Instrument [id number] 09/02/2018 5:21pm 09/02/2018 5:31pm Procedures Procedure Status Date Provider(s) X-ray of tibia and fibula, two views Completed 08/31/18 LIZBET FRAIRE MD Computed tomography of head or brain without contrast Completed 09/02/18 LIZBET FRAIRE MD X-ray of chest, single view Completed 09/02/18 LIZBET FRAIRE MD ECG (electrocardiogram) Completed 09/02/18 LIZBET FRAIRE MD Computed tomography of lower extremity without contrast Completed 09/03/18 CARSON NICOLE MD ECG (electrocardiogram) Completed 09/02/18 LIZBET FRAIRE MD Electrocardiogram report Completed 09/02/18 LIZBET FRAIRE MD Electrocardiogram report Completed 09/02/18 LIZBET FRAIRE MD Encounters Encounter Location Arrival/Admit Date Discharge/Depart Date Attending Provider Discharged Inpatient [facility] 09/02/18 9:19pm 09/04/18 3:30pm SELWYN WIN MD Departed Emergency Room [facility] 09/01/18 4:02pm 09/01/18 7:59pm LIZBET FRAIRE MD Departed Emergency Room [facility] 08/31/18 6:24pm 08/31/18 8:37pm LIZBET FRAIRE MD Recent Diagnosis Acetaminophen overdose Ankle fracture, left Alcohol use disorder History of diabetes mellitus History of chronic hypertension Acetaminophen overdose Ankle fracture, left Alcohol use disorder Probable underlying antisocial personality traits or disorder
--- OUTSIDE RECORDS SUMMARY | 2018-09-28 19:03 | XMS REPORT | Continuity of Care Document ---
Author Author [facility] Organization 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 No 08/31/18 6:03pm Chief Complaint and Reason for Visit Chief Complaint Extremity Injury - Lower Reason for Visit Postoperative pain Problems Active ProblemsNo active problem information available. Past Problems Medical Problem Onset Date Status Postoperative pain Unknown Acute Medications No medication information available. Social History Social History Problem Response Recorded Date/Time Onset Date Status Hx Tobacco Use Yes 08/31/2018 6:03pm Not Applicable Not Applicable Smoking Status Start Date Stop Date Current Every Day Smoker Hospital Discharge Instructions No hospital discharge instruction information available. Plan of Care Discharge Date 08/31/18 8:37pm Disposition HOME, SELF-CARE 01 Condition at Discharge Stable Instructions/Education Provided Postoperative Pain (DC) Prescriptions See Medication Section Referrals PCP NOT FOUND Additional Instructions/Education Call your doctor to arrange a follow-up appointment in the next 1-3 days for further evaluation of your symptoms. Ask your doctor to review the findings of this ER visit and to assist you in management of your medical concerns. Return to the ER if your condition worsens or if you have new concerns. Continue your medications as prescribed. For pain and fever control it is okay for you to use Aleve or Motrin along with Tylenol according to their labeled instructions. Functional Status Query Response Date Recorded Onset Within the Last 7 Days No Problem Identified August 31, 2018 6:03pm Allergies, Adverse Reactions, Alerts Allergen Type Severity Reaction Status Last Updated Phenytoin Allergy Unknown Active 08/31/18 Immunizations Query Response on File Recorded Date/Time HX of Pneumococcal Vaccine Unknown 08/31/18 6:03pm HX of Influenza Vaccine Unknown 08/31/18 6:03pm Tetanus Status Unknown 08/31/18 6:03pm Vital Signs Acute Vital Signs Vital Response Date/Time Pulse Rate (adult) 109 bpm (60 - 100) 08/31/2018 6:03pm Pulse Rate 109 bpm 08/31/2018 8:15pm Respiratory Rate 18 breaths per minute (12 - 24) 08/31/2018 6:03pm Respiratory Rate 18 breaths per minute 08/31/2018 8:15pm Blood Pressure Systolic 130 mm Hg (100 - 140) 08/31/2018 6:03pm Blood Pressure Systolic 130 mm Hg 08/31/2018 8:15pm Blood Pressure Diastolic 86 mm Hg (60 - 90) 08/31/2018 6:03pm Blood Pressure Diastolic 86 mm Hg 08/31/2018 8:15pm Height 5 ft 4 in 08/31/2018 6:03pm Weight 230 lb 08/31/2018 6:03pm Body Mass Index 39.5 kg/m^2 08/31/2018 6:03pm Results No relevant diagnostic test, laboratory data and/or discharge summary informatio n available. Procedures Procedure Status Date Provider(s) X-ray of tibia and fibula, two views Active 08/31/18 LIZBET FRAIRE MD Encounters Encounter Location Arrival/Admit Date Discharge/Depart Date Attending Provider Departed Emergency Room [facility] 08/31/18 6:24pm 08/31/18 8:37pm LIZBET FRAIRE MD Recent Diagnosis
--- OUTSIDE RECORDS SUMMARY | 2018-09-28 19:03 | XMS REPORT | Continuity of Care Document ---
Author Author [facility] Organization [facility] Address Unknown Phone Unavailable Care Team Providers Care Rail Crew Member Name Role Phone PCPNO PCP Unavailable Insurance Providers Guarantor Robert Russo Address [place] [address] Email N Payer Medicaid [place] Policy Number [id number] Subscriber's Name Robert Russo Relationship Self / Same As Patient Advance Directives Directive Response Recorded Date/Time Does the Patient have an Advance Directive? No 09/01/18 3:26pm Chief Complaint and Reason for Visit Chief Complaint Psych Complaint Reason for Visit Postoperative pain Problems Active ProblemsNo active problem information available. Past Problems Medical Problem Onset Date Status Postoperative pain Unknown Acute Postoperative pain Unknown Acute Medications No medication information available. Social History Social History Problem Response Recorded Date/Time Onset Date Status Hx Tobacco Use Yes 09/01/2018 7:44pm Not Applicable Not Applicable Smoking Status Start Date Stop Date Current Every Day Smoker Hospital Discharge Instructions No hospital discharge instruction information available. Plan of Care Discharge Date 09/01/18 7:59pm Disposition HOME, SELF-CARE 01 Condition at Discharge Stable Instructions/Education Provided Postoperative Pain (DC) Prescriptions See Medication Section Referrals NO PCP Note: Additional Instructions/Education Call your doctor to arrange [...] Last 7 Days No Problem Identified September 01, 2018 3:26pm Allergies, Adverse Reactions, Alerts Allergen Type Severity Reaction Status Last Updated Phenytoin Allergy Unknown Active 08/31/18 Immunizations Query Response on File Recorded Date/Time HX of Pneumococcal Vaccine Unknown 09/01/18 3:26pm HX of Influenza Vaccine Unknown 09/01/18 3:26pm Tetanus Status Unknown 09/01/18 7:44pm Vital Signs Acute Vital Signs Vital Response Date/Time Temperature (Fahrenheit) 98.1 degrees F (97.6 - 99.5) 09/01/2018 7:56pm Pulse Rate (adult) 103 bpm (60 - 100) 09/01/2018 3:26pm Pulse Rate 103 bpm 09/01/2018 7:56pm Respiratory Rate 18 breaths per minute (12 - 24) 09/01/2018 3:26pm Respiratory Rate 18 breaths per minute 09/01/2018 7:56pm Blood Pressure Systolic 150 mm Hg (100 - 140) 09/01/2018 3:26pm Blood Pressure Systolic 150 mm Hg 09/01/2018 7:56pm Blood Pressure Diastolic 99 mm Hg (60 - 90) 09/01/2018 3:26pm Blood Pressure Diastolic 99 mm Hg 09/01/2018 7:56pm Height 5 ft 2 in 09/01/2018 3:26pm Weight 230 lb 09/01/2018 3:26pm Body Mass Index 42.1 kg/m^2 09/01/2018 3:26pm Results No relevant diagnostic test, laboratory data and/or discharge summary informatio n available. Procedures Procedure Status Date Provider(s) X-ray of tibia and fibula, two views Completed 08/31/18 LIZBET FRAIRE MD Encounters Encounter Location Arrival/Admit Date Discharge/Depart Date Attending Provider Departed Emergency Room [facility] 09/01/18 4:02pm 09/01/18 7:59pm LIZBET FRAIRE MD Departed Emergency Room [facility] 08/31/18 6:24pm 08/31/18 8:37pm LIZBET FRAIRE MD Recent Diagnosis
--- OUTSIDE RECORDS SUMMARY | 2018-09-28 19:08 | XMS REPORT ---
Author Author [facility] Address Unknown Phone Unavailable Care Team Providers Care Dehydrogenation Operator Head Name Role Phone Deshawn CUMMINS Unavailable Unavailable PROVIDER, TEMP ED Unavailable Unavailable Chavez Gilbert Unavailable Unavailable KAYA WELSH Unavailable Unavailable Sharer, Addis Unavailable Unavailable Kaz Piedra Unavailable Unavailable Denton Caballero Unavailable Unavailable Jose Leyva Unavailable Unavailable Francisco Chase Unavailable Unavailable Loreto TALAMANTES Unavailable Unavailable Payers Payer Name Policy Type Policy Number Effective Date Expiration Date Problems This patient has no known problems. Allergies, Adverse Reactions, Alerts Allergy Name Allergy Type Status Severity Reaction(s) Onset Date Inactive Date Treating Clinician Comments No Known Allergies DA Active U 2018-09-27 00:00:00 phenytoin DA Active U 2018-09-16 00:00:00 phenytoin DA Active U 2018-09-15 00:00:00 phenytoin DA Active U 2018-07-31 00:00:00 phenytoin DA Active U 2018-07-28 00:00:00 No Known Allergies DA Active U 2018-07-13 00:00:00 phenytoin DA Active U 2018-07-09 00:00:00 phenytoin DA Active U 2013-12-19 00:00:00 Medications This patient has no known medications. Encounters Start Date/Time End Date/Time Encounter Type Admission Type Attending [facility] Care Department Encounter ID 2016-08-23 01:10:50 Inpatient [facility] [id number] 2018-10-03 00:00:00 2018-10-03 00:00:00 Outpatient [facility] [id number] 2018-09-19 00:00:00 2018-09-19 00:00:00 Outpatient [facility] [id number] 2018-09-09 00:00:00 2018-09-09 00:00:00 Outpatient [facility] [id number] 2018-08-27 18:55:00 2018-08-27 18:55:00 Emergency E [facility] [id number] 2018-08-27 17:04:00 2018-08-27 17:04:00 Emergency [facility] [id number] 2018-08-22 21:24:41 2018-08-22 21:24:41 Outpatient [facility] [id number] 2018-08-20 14:11:12 2018-08-20 14:11:12 Inpatient [facility] [id number] 2018-08-10 02:44:00 2018-08-09 20:35:00 Inpatient U [facility] MED [id number] 2017-09-20 00:00:00 2017-09-29 00:00:00 [facility]patient [facility] [id number] 2017-09-25 05:03:00 2017-09-25 05:03:00 Outpatient [facility] [id number] 2017-07-27 00:00:00 2017-07-30 00:00:00 [facility] [id number] 2017-07-23 16:34:02 2017-07-23 16:34:02 Emergency [facility] [id number] 2017-07-23 14:51:18 2017-07-23 14:51:18 Emergency [facility] [id number] 2017-07-20 00:00:00 2017-07-21 00:00:00 Outpatient [facility] [id number] 2017-07-18 01:24:18 2017-07-18 01:24:18 Emergency [facility] [id number] 2017-07-17 22:10:08 2017-07-17 22:10:08 Emergency [facility] [id number] 2017-07-17 00:00:00 2017-07-17 00:00:00 Emergency [facility] [id number] 2016-11-30 00:00:00 2016-12-18 00:00:00 [facility] [id number] 2016-11-19 00:00:00 2016-11-21 00:00:00 Outpatient [facility] [id number] 2016-11-12 00:00:00 2016-11-13 00:00:00 Outpatient [facility] [id number] 2016-07-13 00:00:00 2016-11-08 00:00:00 [facility] [id number] 2016-09-12 13:37:14 2016-09-12 13:37:14 Outpatient [facility] [id number] 2016-09-03 00:00:00 2016-09-03 00:00:00 Outpatient [facility] [id number] 2016-09-03 00:00:00 2016-09-03 00:00:00 Outpatient [facility] [id number] 2016-08-23 22:07:54 2016-08-23 00:00:00 Inpatient [facility] [id number] 2016-08-17 17:25:07 2016-08-17 17:25:07 Emergency [facility] [id number] 2016-08-17 14:54:31 2016-08-17 14:54:31 [facility] [id number] Results Test Description Test Time Test Comments Text Results Atomic Results Result Comments BASIC METABOLIC PANEL 2018-09-28 11:52:00 SODIUM (test code=NA) 140 mmol/L 136-145 POTASSIUM (test code=K) 3.9 mmol/L 3.5-5.1 CHLORIDE (test code=CL) 107.0 mmol/L 98-107 CARBON DIOXIDE (test code=CO2) 22.0 mmol/L 21-32 ANION GAP (test code=GAP) 14.9 10-20 GLUCOSE (test code=GLU) 145 mg/dL 74-106 BLOOD UREA NITROGEN (test code=BUN) 8 mg/dL 7-18 GLOMERULAR FILTRATION RATE (test code=GFR) > 60 mL/min >=60 Estimated GFR by using Modified MDRD formula.Chronic kidney disease is defined as either kidney damageor GFR <60 mL/min/1.73 m2 for >3 months. CREATININE (test code=CREAT) 0.70 mg/dL 0.7-1.3 BUN/CREATININE RATIO (test code=BUN/CREA) 11.4 10-20 CALCIUM (test code=CA) 8.6 mg/dL 8.5-10.1 HEPATIC FUNCTION [id number] 11:52:00* Test Item Value Reference Range Comments TOTAL PROTEIN (test code=PROT) 7.5 gram/dL 6.4-8.2 ALBUMIN (test code=ALB) 3.7 g/dL 3.4-5.0 GLOBULIN (test code=GLOB) 3.8 gram/dL 2.7-4.2 ALBUMIN/GLOBULIN RATIO (test code=A/G) 1.0 0.75-1.50 BILIRUBIN TOTAL (test code=BILT) 0.30 mg/dL 0.0-1.0 BILIRUBIN DIRECT (test code=BILD) 0.08 mg/dL 0.0-0.20 SGOT/AST (test code=AST) 37 IUnit/L 15-37 SGPT/ALT (test code=ALT) 59 IUnit/L 12-78 ALKALINE PHOSPHATASE TOTAL (test code=ALKP) 123 IUnit/L 45-117 Note change in reference range due to change in reagent. OSMOLALITY [id number] 11:52:00* Test Item Value Reference Range Comments OSMOLALITY SERUM (test code=OSMO) 387.5 mOsm/kg 275-295 [id number] 11:52:00* Test Item Value Reference Range Comments ACETAMINOPHEN (test code=ACET) < 10 mcg/mL 10-30 A RANGE OF 10-30 mcg/mL IS A THERAPEUTIC RANGE. TOXIC CONCENTRATIONS: >150 mcg/mL AT 4 HOURS AFTER INGESTION >=50 mcg/mL AT 12 HOURS AFTER INGESTION [id number] 11:52:00* Test Item Value Reference Range Comments SALICYLATE (test code=BARI) 2.3 mg/dL 2.8-20.0 [id number] 11:52:00* Test Item Value Reference Range Comments ALCOHOL (test code=ALC) 361 mg/dL 0.0-3.0 INTERPRETIVE DATA NOTE: POSITIVE SCREENING RESULTS SHOULD BE CONSIDERED PRESUMPTIVE.WHEN COLLECTED FOR MEDICAL PURPOSES ONLY. SPECIMEN WILL NOTBE COLLECTED BY CHAIN OF CUSTODY.IF A CONFIRMATION OF POSITIVE RESULTS IS DESIRED, ACONFIRMATION TEST MUST BE REQUESTED BY THE PHYSICIAN AT ANADDITIONAL CHARGE TO THE PATIENT. BASIC METABOLIC [id number] 11:42:00* Test Item Value Reference Range Comments SODIUM (test code=NA) 140 mmol/L 136-145 POTASSIUM (test code=K) 3.9 mmol/L 3.5-5.1 CHLORIDE (test code=CL) 107.0 mmol/L 98-107 CARBON DIOXIDE (test code=CO2) mmol/L 21-32 ANION GAP (test code=GAP) 10-20 GLUCOSE (test code=GLU) mg/dL 74-106 BLOOD UREA NITROGEN (test code=BUN) mg/dL 7-18 GLOMERULAR FILTRATION RATE (test code=GFR) mL/min >=60 CREATININE (test code=CREAT) mg/dL 0.7-1.3 BUN/CREATININE RATIO (test code=BUN/CREA) 10-20 CALCIUM (test code=CA) mg/dL 8.5-10.1 HEPATIC FUNCTION [id number] 11:42:00* Test Item Value Reference Range Comments TOTAL PROTEIN (test code=PROT) gram/dL 6.4-8.2 ALBUMIN (test code=ALB) g/dL 3.4-5.0 GLOBULIN (test code=GLOB) gram/dL 2.7-4.2 ALBUMIN/GLOBULIN RATIO (test code=A/G) 0.75-1.50 BILIRUBIN TOTAL (test code=BILT) mg/dL 0.0-1.0 BILIRUBIN DIRECT (test code=BILD) mg/dL 0.0-0.20 SGOT/AST (test code=AST) IUnit/L 15-37 SGPT/ALT (test code=ALT) IUnit/L 12-78 ALKALINE PHOSPHATASE TOTAL (test code=ALKP) IUnit/L 45-117 OSMOLALITY [id number] 11:42:00* Test Item Value Reference Range Comments OSMOLALITY SERUM (test code=OSMO) 387.5 mOsm/kg 275-295 [id number] 11:42:00* Test Item Value Reference Range Comments ACETAMINOPHEN (test code=ACET) mcg/mL 10-30 [id number] 11:42:00* Test Item Value Reference Range Comments SALICYLATE (test code=BARI) mg/dL 2.8-20.0 [id number] 11:42:00* Test Item Value Reference Range Comments ALCOHOL (test code=ALC) mg/dL 0-3 BASIC METABOLIC [id number] 11:33:00* Test Item Value Reference Range Comments SODIUM (test code=NA) 140 mmol/L 136-145 POTASSIUM (test code=K) 3.9 mmol/L 3.5-5.1 CHLORIDE (test code=CL) 107.0 mmol/L 98-107 CARBON DIOXIDE (test code=CO2) mmol/L 21-32 ANION GAP (test code=GAP) 10-20 GLUCOSE (test code=GLU) mg/dL 74-106 BLOOD UREA NITROGEN (test code=BUN) mg/dL 7-18 GLOMERULAR FILTRATION RATE (test code=GFR) mL/min >=60 CREATININE (test code=CREAT) mg/dL 0.7-1.3 BUN/CREATININE RATIO (test code=BUN/CREA) 10-20 CALCIUM (test code=CA) mg/dL 8.5-10.1 HEPATIC FUNCTION [id number] 11:33:00* Test Item Value Reference Range Comments TOTAL PROTEIN (test code=PROT) gram/dL 6.4-8.2 ALBUMIN (test code=ALB) g/dL 3.4-5.0 GLOBULIN (test code=GLOB) gram/dL 2.7-4.2 ALBUMIN/GLOBULIN RATIO (test code=A/G) 0.75-1.50 BILIRUBIN TOTAL (test code=BILT) mg/dL 0.0-1.0 BILIRUBIN DIRECT (test code=BILD) mg/dL 0.0-0.20 SGOT/AST (test code=AST) IUnit/L 15-37 SGPT/ALT (test code=ALT) IUnit/L 12-78 ALKALINE PHOSPHATASE TOTAL (test code=ALKP) IUnit/L 45-117 OSMOLALITY [id number] 11:33:00* Test Item Value Reference Range Comments OSMOLALITY SERUM (test code=OSMO) mOsm/kg 275-295 [id number] 11:33:00* Test Item Value Reference Range Comments ACETAMINOPHEN (test code=ACET) mcg/mL 10-30 [id number] 11:33:00* Test Item Value Reference Range Comments SALICYLATE (test code=BARI) mg/dL 2.8-20.0 [id number] 11:33:00* Test Item Value Reference Range Comments ALCOHOL (test code=ALC) mg/dL 0-3 CBC W/O [id number] 11:12:00* Test Item Value Reference Range Comments WHITE BLOOD CELL (test code=WBC) 8.0 K/mm3 4.5-12.5 RED BLOOD CELL (test code=RBC) 3.43 mill/mm3 4.0-5.8 HEMOGLOBIN (test code=HGB) 8.7 gram/dL 13.0-17.5 HEMATOCRIT (test code=HCT) 28.4 % 42.0-52.0 MEAN CELL VOLUME (test code=MCV) 82.8 fL 80-98 MEAN CELL HGB (test code=MCH) 25.4 picogram 27.0-33.0 MEAN CELL HGB CONCETRATION (test code=MCHC) 30.6 gram/dL 33.0-36.0 RED CELL DISTRIBUTION WIDTH (test code=RDW) 15.5 % 11.6-16.2 PLATELET COUNT (test code=PLT) 372 K/mm3 150-450 MEAN PLATELET VOLUME (test code=MPV) 8.4 fL 6.7-11.0 - XR FOOT 3 + V [id number] 06:05:00 FAX: Ludivina Champion [phone] [place]: B St: REG Name: LESVIA MCCLELLAN [facility] : [birth year] Age/S: 38/M [address] [facility] Unit #: [id number] Loc: [place], [place] [address] Phys: Ludivina Almonte MD Acct: [id number] Dis Date: Status: REG ER PHONE #: [phone] Exam Date: 09/28/2018 0550 FAX #: [phone] Reason: swelling, pain EXAMS: CPT CODE: [id number] XR FOOT 3 + [place] [address] HISTORY: Swelling and pain Location: C3 FINDINGS: 3 images of the left ankle and 3 images left foot are provided. Operative changes of prior internal fixation of the left ankle are provided. There has been fracture of the long syndes motic screw. No acute fracture, dislocation, or other acute osseous abnorm ality is demonstrated. IMPRESSION: 1. Fracture involving syndesmotic screw. There is mild lucency adjac ent to the screw is well. 2. No acute fracture or other acute osseous a bnormality. at 0605 Reported and signed by: Jackie Levi MD CC: Ludivina Almonte MD [employer] nologist: BELLE MCALLISTER RT(R) Trnscrd Date/Ti me/By: 09/28/2018 (06) : By: [email or web address] Orig Print D/T: S: 09/28/2018 (0608) PAGE 1 Signed Report - XR ANKLE 3 + V [id number] 06:05:00 FAX: Ludivina Champion [phone] [place]: St: REG Name: LESVIA MCCLELLAN [facility] : [birth year] Age/S: 38/M [facility] [facility] Unit #: [id number] Loc: [place] [address] Phys: Ludivina Almonte MD Acct: [id number] Dis Date: Status: REG ER PHONE #: [phone] Exam Date: 09/28/2018 0545 FAX #: [phone] Reason: swelling, pain EXAMS: CPT CODE: [id number] XR ANKLE 3 + V LT 19431 HISTORY: Swelling and pain Location: C3 FINDINGS: 3 images of the left ankle and 3 images left foot are provided. Operative changes of prior internal fixation of the left ankle are provided. There has been fracture of the long syndes motic screw. No acute fracture, dislocation, or other acute osseous abnorm ality is demonstrated. IMPRESSION: 1. Fracture involving syndesmotic screw. There is mild lucency adjac ent to the screw is well. 2. No acute fracture or other acute osseous a bnormality. at 0605 Reported and signed by: Jackie Levi MD CC: Ludivina Almonte MD Tech nologist: RT ANTOINETTE(R) Trnscrd Date/Ti me/By: 09/28/2018 (0605) : By: [email or web address] Orig Print D/T: S: 09/28/2018 (0608) PAGE 1 Signed Report URINALYSIS [id number] 02:32:00* Test Item Value Reference Range Comments UA COLOR (test code=COLU) COLORLESS YELLOW UA APPEARANCE (test code=APPU) CLEAR CLEAR UA GLUCOSE DIPSTICK (test code=DGLUU) NEGATIVE mg/dL NEGATIVE UA BILIRUBIN DIPSTICK (test code=BILU) NEGATIVE mg/dL NEGATIVE UA KETONE DIPSTICK (test code=KETU) NEGATIVE mg/dL NEGATIVE UA SPECIFIC GRAVITY (test code=SGU) 1.031 1.001-1.035 UA BLOOD DIPSTICK (test code=KILO) Negative mg/dL NEGATIVE UA PH DIPSTICK (test code=PRICILA) 5.5 5.0-8.0 UA PROTEIN DIPSTICK (test code=PROU) 20 (Trace) mg/dL NEGATIVE UA UROBILINIOGEN DIPSTICK (test code=URO) Normal mg/dL NEGATIVE UA NITRITE DIPSTICK (test code=ELIOT) NEGATIVE NEGATIVE UA LEUKOCYTE ESTERASE W REFLEX (test code=LEUUR) NEGATIVE Teo/uL NEGATIVE UA WBC (test code=WBCU) NONE SEEN per HPF 0-5 UA RBC (test code=RBCU) 0-2 #/HPF 0-5 UA EPITHELIAL CELLS (test code=EPIU) FEW per HPF FEW UA BACTERIA (test code=BACU) NONE SEEN #/HPF NONE Urine Source? Clean Catch- CT CHEST [id number] 00:22:00 [facility] 1980 Age/S: 38 / M [address] Unit #: [id number] [place]: [place] [address] Phys: Jose Almonte MD Acct: [id number] Di s Date: Status: REG ER PHONE #: Exam Date: 09/27/2018 2354 FAX #: Reason: fall, hypoxia EXAMS: CPT CODE: [id number] CT CHEST W/CO NTRAST 52015 EXAM: CT CHEST, ABDOMEN AND PELVIS WITH IV CONTRAST DICTATION LOCATION: H48 HISTORY: Male, 38 years of age with fall, intoxication, seizure TECHNIQUE: Contrast: Nonionic IV contrast was given. No GI contrast was given. Arterial phase: Chest Portal venous phase: Abdomen and pelvis Delayed phase: abdomen and pelvis Reconstructions: Coronal and sa gittal planes One or more of the following dose reduction techniques were used: Automated exposure control; adjustment of the mA and/or kV according to the patient size; and/or use of iterative reconstruction technique. COMPARISON: Previous CT chest abdomen and pelvis 07/14/2018 FINDINGS: Statements: Exam quality is acceptable. THORA CIC: Lines and tubes: None. Cardiac: No cardiomegaly or pe ricardial effusion. Coronary artery atherosclerotic calcification: None d etected. Pulmonary arteries: Normal size. Aorta: No thoracic or abdominal aortic aneurysm or dissection. Mediastinu m and neck: No adenopathy by CT size criteria. The thyroid gland is normal . Lungs and Pleura: No pleural effusion. No pneumothorax. No pulmo nary mass, infiltrate, or consolidation. No central endobronchial masses. ABDOMEN AND PELVIS: Hepatobiliary: The liver is normal witho ut focal lesion. The gallbladder is normal. No biliary dilation. Pancreas: Normal. Spleen: Normal. PAGE 1 Signed Report (CONTINUED) Name: LESVIA RUSSO [facility] : 1980 Age/S: 38 / M [address] [facility] Unit #: [id number] Loc: [place] [address] Phys: Ludivina Almonte MD Acct: [id number] Dis Date: Status: REG ER PHONE #: [phone] Exam Date: 09/27/2018 2351 FAX #: [phone] Reason: fa ll, hypoxia EXAMS: CPT CODE: [id number] CT CHEST W/CONTRAST 22020 <Continued> Adrenals: Normal. Genitourinary: No solid renal mass, significant cortical thinning, renal stone or hydronephrosis. Ureters are unremarkable. Urinary bladder is distended but otherwise unremarkable. The visualized reproductive organs are unremarkable. Gastrointestinal: No bowel obstruction or perienteric inflammation. The appendix is normal. Vascular: Portal vein is patent. IVC unremarkable. Iliac vessels are unremarkable. Lymphatics: No enlarged lymph nodes by CT size criteria. Bones/Soft Tissues: No significant subcutaneous contusion or hematoma. There is a comminuted nonhealed fracture of the left side of the manubrium which looks nonacute as the edges are eburnated. No acute osseous abnormality. No ventral hernias. Peritoneum/Other: No free intraperitoneal air. No free intraperitoneal fluid. IMPRESSION: 1. Subacute/chronic nonhealed comminuted fracture of the left side of the manubrium. In retrospect, this was probably present on chest CT of 07/14/2018 but subtle and nondisplaced at that time. 2. No acute findings in the chest, abdomen or pelvis. 3. Urinary bladder is distended. at 0022 Reported and signed by: Tami Gomez MD CC: Ludivina Almonte MD Technol ogist:Micheal Andrew, RT(R)(CT) CTDI: DLP: Trnscb Date/Time: 09/28/2018 (0022) [email or web address] Orig Print D/T: S: 09/28/2018 (0025) PAGE 2 Signed Report - CT ABD PELVIS [id number] 00:22:00 Name: LESVIA RUSSO [facility] : 1980 Age/S: 38 / M [address] [facility] Unit #: [id number] Loc: [place] [address] Phys: Ludivina Almonte MD Acct: [id number] Dis Date: Status: REG ER PHONE #: [phone] Exam Date: 09/27/20182350 FAX #: [phone] Reason: fall, intoxication EXAMS: CPT CODE: [id number] CT ABD PELVIS W/CONT 42539 EXAM: CT CHEST, ABDOMEN AND PELVIS WITH IV CONTRAST DICTATION LOCATION: H48 HISTORY: Male, 38 years of age with fall, intoxication, seizure TECHNIQUE: Contrast: Nonionic IV contrast was given. No GI contrast was given. Arterial phase: Chest Portal venous phase: Abdomen and pelvis Delayed phase: abdomen and pelvis Reconstructions: Coronal and sagittal planes One or more of the following dose reduction techniques were used: Automated exposure control; adjustment of the mA and/or kV according to the patient size; and/or use of iterative reconstruction technique. COMPARISON: Previous CT chest abdomen and pelvis 07/14/2018 FINDINGS: Statements: Exam quality is acceptable. THORACIC: Lines and tubes: None. Cardiac: No cardiomegaly or pe ricardial effusion. Coronary artery atherosclerotic calcification: None d etected. Pulmonary arteries: Normal size. Aorta: No thoracic or abdominal aortic aneurysm or dissection. Mediastinu m and neck: No adenopathy by CT size criteria. The thyroid gland is normal . Lungs and Pleura: No pleural effusion. No pneumothorax. No pulmo nary mass, infiltrate, or consolidation. No central endobronchial masses. ABDOMEN AND PELVIS: Hepatobiliary: The liver is normal witho ut focal lesion. The gallbladder is normal. No biliary dilation. Pancreas: Normal. Spleen: Normal. PAGE 1 Signed Report (CONTINUED) Name: LESVIA RUSSO [facility] : 1980 Age/S: 38 / M [address] [facility] Unit #: [id number] Loc: [place] [address] Phys: Ludivina Almonte MD Acct: [id number] Dis Date: Status: REG ER PHONE #: [phone] Exam Date: 09/27/20182350 FAX #: [phone] Reason: fa ll, intoxication EXAMS: CPT CODE: [id number] CT ABD PELVIS W/CONT 00791 <Continued> Adrenals: Normal. Genitourinary: No solid renal mass, significant cortical thinning, renal stone or hydronephrosis. Ureters are unremarkable. Urinary bladder is distended but otherwise unremarkable. The visualized reproductive organs are unremarkable. Gastrointestinal: No bowel obstruction or perienteric inflammation. The appendix is normal. Vascular: Portal vein is patent. IVC unremarkable. Iliac vessels are unremarkable. Lymphatics: No enlarged lymph nodes by CT size criteria. Bones/Soft Tissues: No significant subcutaneous contusion or hematoma. There is a comminuted nonhealed fracture of the left side of the manubrium which looks nonacute as the edges are eburnated. No acute osseous abnormality. No ventral hernias. Peritoneum/Other: No free intraperitoneal air. No free intraperitoneal fluid. IMPRESSION: 1. Subacute/chronic nonhealed comminuted fracture of the left side of the manubrium. In retrospect, this was probably present on chest CT of 07/14/2018 but subtle and nondisplaced at that time. 2. No acute findings in the chest, abdomen or pelvis. 3. Urinary bladder is distended. at 0022 Reported and signed by: Tami Gomez MD CC: Ludivina Almonte MD Technol ogist:Micheal Andrew, RT(R)(CT) CTDI: DLP: Trnscb Date/Time: 09/28/2018 (0022) [email or web address] Orig Print D/T: S: 09/28/2018 (0025) PAGE 2 Signed Report - CT C-SPINE W/O [id number] 23:26:00 Name: LESVIA RUSSO [facility] : 1980 Age/S: 38 / M [address] [facility] Unit #: [id number] [place]: [place] [address] Phys: Ludivina Almonte MD Acct: [id number] Dis Date: Status: REG ER PHONE #: [phone] Exam Date: 09/27/2018 2311 FAX #: [phone] Reason: fall, intoxication EXAMS: CPT CODE: [id number] CT C-SPINE W/O CONTRAST 91122 DICTATION LOCATION: H48 HISTORY: Male, 38 years of age with fall, intoxication EXAM: CT SCAN OF THE CERVICAL SPINE WITHOUT IV CONTRAST COMPARISON: Previous CT C- spine 07/14/2018 TECHNIQUE: Helical axial images were obtained without IV contrast. Axial, sagittal, and coronal reconstructions were performed. One or more of the following dose reduction techniques were used: Automated exposure control; adjustment of the mA and/or kV according to the patient size; and/or use of iterative reconstruction technique. FINDINGS: There is no acute fracture, posttraumatic subluxation or prevertebral soft tissue swelling. No significant central canal or foraminal stenosis. No focal disc herniations are identified. Mild spondylosis seen at C5 and C6. Incidental note made of wax plug in right external auditory canal. IMPRESSION: No acute fracture or subluxation in the cervical spine. at 8572 Reported and signed by: Tami Gomez MD CC: Ludivina Almonte MD Technologist:Micheal Andrew, RT(R)(CT) CTDI: DLP: Trnscb Date/Time: 09/27/2018 (9193) [email or web address] Orig P rint D/T: S: 09/27/2018 (4436) PAGE 1 Signed Report - CT HEAD/BRAIN W/O [id number] 23:22:00 Name: LESVIA RUSSO [facility] : 1980 Age/S: 38 / M [address] [facility] Unit #: [id number] Loc: [place] [address] Phys: Jose Almonte MD Acct: [id number] Di s Date: Status: REG ER PHONE #: Exam Date: 09/27/2018 2311 FAX #: Reason: fall. intoxication EXAMS: CPT CODE: [id number] CT HEAD/BRAIN W/O CONT 70752 DICTATION LOCATION: H48 HISTORY: Male, 38 years of age with fall, intoxication, seizure EXAM: CT BRAIN WITHOUT CONTRAST COMPARISON: Previous CT brain without contrast 08/01/2018 TECHNIQUE: Transaxial images were obtained through the brain without IV contrast. One or more of the following dose reduction techniques were used: Automated exposure control; adjustment of the mA and/or kV according to the patient size; and/or use of iterative reconstruction technique. FINDINGS: Mild soft tissue swelling seen in the frontal scalp. There is no acute intra-axial o r extra-axial hemorrhage, mass, mass effect or midline shift. No acute los s of the cortical echols/white junctions. No hydrocephalus. There is no acu te calvarial fracture. The sinuses and mastoids are clear. IMPRESSION: No acute calvarial fracture, intracranial hemorrhage, inf arct, or mass. Electronically Signed by Tami Gomez MD on 019 at 2322 Reported and signed by: Tami Gomez MD CC: Ludivina Almonte MD Techno logist:Micheal Andrew, RT(R)(CT) CTDI: DLP: Trnscb Date/Time : 09/27/2018 (822) [email or web address] Orig Print D/T: S: 09/28/19 19 (8772) PAGE 1 Signed Report [id number] 22:41:00* Test Item Value Reference Range Comments TROPONIN-I (test code=TROPI) <0.015 ng/mL 0-0.045 BASIC METABOLIC [id number] 22:12:00* Test Item Value Reference Range Comments SODIUM (test code=NA) 143 mmol/L 136-145 POTASSIUM (test code=K) 4.6 mmol/L 3.5-5.1 CHLORIDE (test code=CL) 111.0 mmol/L 98-107 CARBON DIOXIDE (test code=CO2) 21.0 mmol/L 21-32 ANION GAP (test code=GAP) 15.6 10-20 GLUCOSE (test code=GLU) 164 mg/dL 74-106 BLOOD UREA NITROGEN (test code=BUN) 7 mg/dL 7-18 GLOMERULAR FILTRATION RATE (test code=GFR) > 60 mL/min >=60 Estimated GFR by using Modified MDRD formula.Chronic kidney disease is defined as either kidney damageor GFR <60 mL/min/1.73 m2 for >3 months. CREATININE (test code=CREAT) 0.70 mg/dL 0.7-1.3 BUN/CREATININE RATIO (test code=BUN/CREA) 9.4 10-20 CALCIUM (test code=CA) 8.2 mg/dL 8.5-10.1 [id number] 22:12:00* Test Item Value Reference Range Comments ALCOHOL (test code=ALC) 427 mg/dL 0.0-3.0 INTERPRETIVE DATA NOTE: POSITIVE SCREENING RESULTS SHOULD BE CONSIDERED PRESUMPTIVE.WHEN COLLECTED FOR MEDICAL PURPOSES ONLY. SPECIMEN WILL NOTBE COLLECTED BY CHAIN OF CUSTODY.IF A CONFIRMATION OF POSITIVE RESULTS IS DESIRED, ACONFIRMATION TEST MUST BE REQUESTED BY THE PHYSICIAN AT ANADDITIONAL CHARGE TO THE PATIENT. HEPATIC FUNCTION [id number] 22:12:00* Test Item Value Reference Range Comments TOTAL PROTEIN (test code=PROT) 7.9 gram/dL 6.4-8.2 ALBUMIN (test code=ALB) 3.7 g/dL 3.4-5.0 GLOBULIN (test code=GLOB) 4.2 gram/dL 2.7-4.2 ALBUMIN/GLOBULIN RATIO (test code=A/G) 0.9 0.75-1.50 BILIRUBIN TOTAL (test code=BILT) 0.30 mg/dL 0.0-1.0 BILIRUBIN DIRECT (test code=BILD) 0.06 mg/dL 0.0-0.20 SGOT/AST (test code=AST) 50 IUnit/L 15-37 SGPT/ALT (test code=ALT) 66 IUnit/L 12-78 ALKALINE PHOSPHATASE TOTAL (test code=ALKP) 132 IUnit/L 45-117 Note change in reference range due to change in reagent. [id number] 22:12:00* Test Item Value Reference Range Comments LIPASE (test code=LIP) 163 U/L 73.0-393.0 CREATINE KINASE (CK)2018-09-27 22:12:00* Test Item Value Reference Range Comments CREATINE KINASE (CK) (test code=CK) 247 IUnit/L 26-208 CBC W/AUTO [id number] 21:51:00* Test Item Value Reference Range Comments WHITE BLOOD CELL (test code=WBC) 7.7 K/mm3 4.5-12.5 RED BLOOD CELL (test code=RBC) 3.59 mill/mm3 4.0-5.8 HEMOGLOBIN (test code=HGB) 9.2 gram/dL 13.0-17.5 HEMATOCRIT (test code=HCT) 29.7 % 42.0-52.0 MEAN CELL VOLUME (test code=MCV) 82.7 fL 80-98 MEAN CELL HGB (test code=MCH) 25.6 picogram 27.0-33.0 MEAN CELL HGB CONCETRATION (test code=MCHC) 31.0 gram/dL 33.0-36.0 RED CELL DISTRIBUTION WIDTH (test code=RDW) 15.2 % 11.6-16.2 RED CELL DISTRIBUTION WIDTH SD (test code=RDW-SD) 46.3 fL 37.0-51.0 PLATELET COUNT (test code=PLT) 412 K/mm3 150-450 MEAN PLATELET VOLUME (test code=MPV) 8.3 fL 6.7-11.0 NEUTROPHIL % (test code=NT%) 50.4 % 39.0-69.0 IMMATURE GRANULOCYTE % (test code=IG%) 0.8 % 0.0-5.0 LYMPHOCYTE % (test code=LY%) 35.2 % 25.0-55.0 MONOCYTE % (test code=MO%) 9.9 % 0.0-10.0 EOSINOPHIL % (test code=EO%) 2.7 % 0.0-5.0 BASOPHIL % (test code=BA%) 1.0 % 0.0-1.0 NUCLEATED RBC % (test code=NRBC%) 0.0 % 0-0 NEUTROPHIL # (test code=NT#) 3.85 K/mm3 1.8-7.7 IMMATURE GRANULOCYTE # (test code=IG#) 0.06 x10 3/uL 0-0.03 LYMPHOCYTE # (test code=LY#) 2.69 K/mm3 1.0-5.0 MONOCYTE # (test code=MO#) 0.76 K/mm3 0-0.8 EOSINOPHIL # (test code=EO#) 0.21 K/mm3 0.0-0.5 BASOPHIL # (test code=BA#) 0.08 K/mm3 0.0-0.2 NUCLEATED RBC # (test code=NRBC#) 0.00 K/mm3 0.0-0.1 MANUAL DIFF REQUIRED (test code=MDIFF) NO - XR CHEST 1 [id number] 21:38:00 FAX: Ludivina Champion [phone] [place]: St: REG Name: LESVIA MCCLELLAN [facility] : [birth year] Age/S: 38/M [address] [facility] Unit #: [id number] Loc: [place] [address] Phys: Ludivina Almonte MD Acct: [id number] Dis Date: Status: REG ER PHONE #: [phone] Exam Date: 09/27/20182134 FAX #: [phone] Reason: tachycardia, fall EXAMS: CPT CODE: [id number] XR CHEST 1 V 24732 REASON FOR EXAM: tachycardia, fall EXAM ORDER DATE: 09/27/2018 9:21 PM Ordering Mable: Ludivina Almonte MD PROCEDURE: - XR CHEST 1 V COMPARISON: 07/14/2018 FINDINGS: Portable AP frontal view of the chest obtained at 9:33 PM shows diffuse patchy airspace opacities. The re is no evidence of effusion. The heart size is within normal limits. Pul monary vasculatures are minimally congested. IMPRESSION: Hypoaerated lungs Electronically Signed by Mable Duong on 9 at 2138 Reported and signed by: Gold Duong M.D. CC: Ludivina Almonte MD Techno logist: Jackie PORTER(R) Trnscrd Date/Time /By: 09/27/2018 (2137) : By: Brianna Orig Print D/T: S: 09/27/2018 ( 2141) PAGE 1 Signed Report URINALYSIS [id number] 15:27:00* Test Item Value Reference Range Comments UA COLOR (test code=COLU) Light-Yellow YELLOW UA APPEARANCE (test code=APPU) CLEAR CLEAR UA GLUCOSE DIPSTICK (test code=DGLUU) NEGATIVE mg/dL NEGATIVE UA BILIRUBIN DIPSTICK (test code=BILU) NEGATIVE mg/dL NEGATIVE UA KETONE DIPSTICK (test code=KETU) NEGATIVE mg/dL NEGATIVE UA SPECIFIC GRAVITY (test code=SGU) 1.012 1.001-1.035 UA BLOOD DIPSTICK (test code=KILO) Negative mg/dL NEGATIVE UA PH DIPSTICK (test code=PRICILA) 6.0 5.0-8.0 UA PROTEIN DIPSTICK (test code=PROU) 50 (1+) mg/dL NEGATIVE UA UROBILINIOGEN DIPSTICK (test code=URO) Normal mg/dL NEGATIVE UA NITRITE DIPSTICK (test code=ELIOT) NEGATIVE NEGATIVE UA LEUKOCYTE ESTERASE W REFLEX (test code=LEUUR) NEGATIVE Teo/uL NEGATIVE UA WBC (test code=WBCU) 0-5 per HPF 0-5 UA RBC (test code=RBCU) 0-2 #/HPF 0-5 UA EPITHELIAL CELLS (test code=EPIU) None seen per HPF FEW UA BACTERIA (test code=BACU) NONE SEEN #/HPF NONE UA MUCUS (test code=MUCU) FEW #/LPF FEW Urine Source? Clean CatchDRUGS OF ABUSE SCREEN [id number] 15:27:00* Test Item Value Reference Range Comments URN COCAINE (test code=COCAURN) NEGATIVE <300 ng/mL URN CANNABINOIDS (test code=CANNABURN) NEGATIVE <50 ng/mL URN AMPHETAMINE (test code=AMPHETURN) NEGATIVE <1000 ng/mL URN BARBITURATE (test code=BARBITURN) NEGATIVE <200 ng/mL URN BENZODIAZEPINE (test code=BENZOURN) NEGATIVE <200 ng/mL URN OPIATES (test code=OPIATURN) NEGATIVE <300 ng/mL URN PHENCYCLIDINE (PCP) (test code=PHENCURN) NEGATIVE <25 ng/mL URN METHADONE (test code=METHAURN) NEGATIVE <300 ng/mL Urine Source? Clean CatchURINALYSIS [id number] 15:10:00* Test Item Value Reference Range Comments UA COLOR (test code=COLU) Light-Yellow YELLOW UA APPEARANCE (test code=APPU) CLEAR CLEAR UA GLUCOSE DIPSTICK (test code=DGLUU) NEGATIVE mg/dL NEGATIVE UA BILIRUBIN DIPSTICK (test code=BILU) NEGATIVE mg/dL NEGATIVE UA KETONE DIPSTICK (test code=KETU) NEGATIVE mg/dL NEGATIVE UA SPECIFIC GRAVITY (test code=SGU) 1.012 1.001-1.035 UA BLOOD DIPSTICK (test code=KILO) Negative mg/dL NEGATIVE UA PH DIPSTICK (test code=PRICILA) 6.0 5.0-8.0 UA PROTEIN DIPSTICK (test code=PROU) 50 (1+) mg/dL NEGATIVE UA UROBILINIOGEN DIPSTICK (test code=URO) Normal mg/dL NEGATIVE UA NITRITE DIPSTICK (test code=ELIOT) NEGATIVE NEGATIVE UA LEUKOCYTE ESTERASE W REFLEX (test code=LEUUR) NEGATIVE Teo/uL NEGATIVE UA WBC (test code=WBCU) 0-5 per HPF 0-5 UA RBC (test code=RBCU) 0-2 #/HPF 0-5 UA EPITHELIAL CELLS (test code=EPIU) None seen per HPF FEW UA BACTERIA (test code=BACU) NONE SEEN #/HPF NONE UA MUCUS (test code=MUCU) FEW #/LPF FEW Urine Source? Clean CatchDRUGS OF ABUSE SCREEN [id number] 15:10:00* Test Item Value Reference Range Comments URN COCAINE (test code=COCAURN) <300 ng/mL URN CANNABINOIDS (test code=CANNABURN) <50 ng/mL URN AMPHETAMINE (test code=AMPHETURN) <1000 ng/mL URN BARBITURATE (test code=BARBITURN) <200 ng/mL URN BENZODIAZEPINE (test code=BENZOURN) <200 ng/mL URN OPIATES (test code=OPIATURN) <300 ng/mL URN PHENCYCLIDINE (PCP) (test code=PHENCURN) <25 ng/mL URN METHADONE (test code=METHAURN) <300 ng/mL Urine Source? Clean Catch- XR CHEST 1 [id number] 15:02:00 FAX: Jayjay Zaman DO [place]: B St: REG Name: LESVIA MCCLELLAN [facility] : [birth year] Age/S: 38/M [address] Unit #: [id number] Loc: [place] [address] Phys: Jayjay Zaman DO Acct: [id number] Dis Date: Status: REG ER PHONE #: [phone] Exam Date: 09/27/2018 6418 FAX #: [phone] Reason: Altered Mental Status EXAMS: CPT CODE: [id number] XR CHEST 1 V 22633 EXAM: Chest x-ray, one view; INFORMATION: AMS, intoxicated; IMPRESSION: 1. No acute cardiothoracic abnormalities. 2. No significant change compared with a recent study from August 20182018. Do orozco Signed by Mable Pride on 09/27/2018 a t 1502 Reported and signed by: Tim Davidson ch, M.D. CC: Jayjay Zaman DO Technologist: Matthew PORTER(Deshawn) Trnscrd Date/Time/By: 09/27/2018 (150) : By: TanaGRW Orig P rint D/T: S: 09/27/2018 (6644) PAGE 1 Signed Report BASIC METABOLIC [id number] 14:58:00* Test Item Value Reference Range Comments SODIUM (test code=NA) 141 mmol/L 136-145 POTASSIUM (test code=K) 4.1 mmol/L 3.5-5.1 CHLORIDE (test code=CL) 109.0 mmol/L 98-107 CARBON DIOXIDE (test code=CO2) 19.0 mmol/L 21-32 ANION GAP (test code=GAP) 17.1 10-20 GLUCOSE (test code=GLU) 157 mg/dL 74-106 BLOOD UREA NITROGEN (test code=BUN) 8 mg/dL 7-18 GLOMERULAR FILTRATION RATE (test code=GFR) > 60 mL/min >=60 Estimated GFR by using Modified MDRD formula.Chronic kidney disease is defined as either kidney damageor GFR <60 mL/min/1.73 m2 for >3 months. CREATININE (test code=CREAT) 0.70 mg/dL 0.7-1.3 BUN/CREATININE RATIO (test code=BUN/CREA) 12.0 10-20 CALCIUM (test code=CA) 8.7 mg/dL 8.5-10.1 HEPATIC FUNCTION [id number] 14:58:00* Test Item Value Reference Range Comments TOTAL PROTEIN (test code=PROT) 8.2 gram/dL 6.4-8.2 ALBUMIN (test code=ALB) 4.1 g/dL 3.4-5.0 GLOBULIN (test code=GLOB) 4.1 gram/dL 2.7-4.2 ALBUMIN/GLOBULIN RATIO (test code=A/G) 1.0 0.75-1.50 BILIRUBIN TOTAL (test code=BILT) 0.20 mg/dL 0.0-1.0 BILIRUBIN DIRECT (test code=BILD) 0.12 mg/dL 0.0-0.20 SGOT/AST (test code=AST) 56 IUnit/L 15-37 SGPT/ALT (test code=ALT) 81 IUnit/L 12-78 ALKALINE PHOSPHATASE TOTAL (test code=ALKP) 152 IUnit/L 45-117 Note change in reference range due to change in reagent. CREATINE KINASE (CK)2018-09-27 14:58:00* Test Item Value Reference Range Comments CREATINE KINASE (CK) (test code=CK) 220 IUnit/L 26-208 [id number] 14:58:00* Test Item Value Reference Range Comments LIPASE (test code=LIP) 187 U/L 73.0-393.0 [id number] 14:58:00* Test Item Value Reference Range Comments TROPONIN-I (test code=TROPI) <0.015 ng/mL 0-0.045 [id number] 14:58:00* Test Item Value Reference Range Comments ACETAMINOPHEN (test code=ACET) < 10 mcg/mL 10-30 A RANGE OF 10-30 mcg/mL IS A THERAPEUTIC RANGE. TOXIC CONCENTRATIONS: >150 mcg/mL AT 4 HOURS AFTER INGESTION >=50 mcg/mL AT 12 HOURS AFTER INGESTION [id number] 14:58:00* Test Item Value Reference Range Comments SALICYLATE (test code=BARI) 1.8 mg/dL 2.8-20.0 [id number] 14:58:00* Test Item Value Reference Range Comments ALCOHOL (test code=ALC) 331 mg/dL 0.0-3.0 INTERPRETIVE DATA NOTE: POSITIVE SCREENING RESULTS SHOULD BE CONSIDERED PRESUMPTIVE.WHEN COLLECTED FOR MEDICAL PURPOSES ONLY. SPECIMEN WILL NOTBE COLLECTED BY CHAIN OF CUSTODY.IF A CONFIRMATION OF POSITIVE RESULTS IS DESIRED, ACONFIRMATION TEST MUST BE REQUESTED BY THE PHYSICIAN AT ANADDITIONAL CHARGE TO THE PATIENT. - CT C-SPINE W/O [id number] 14:56:00 Name: LESVIA RUSSO [facility] : 1980 Age/S: 38 / M [address] [facility] Unit #: [id number] Loc: [place] [address] Phys: Jayjay Zaman DO Acct: [id number] Dis Date: Status: REG ER PHONE #: [phone] Exam Date: 09/27/2018 1447 FAX #: [phone] Reason: intoxicated, possible fall EXAMS: CPT CODE: [id number] CT C-SPINE W/O CONTRAST 18967 EXAM: CT of the cervical spine without contrast; INFORMATION: AMS, intoxicated; TECHNIQUE: CT dose reduction protocol; Helical scans of the cervical spine with sagittal and coronal reconstructions; FINDINGS: There is good alignment of the cervical spine; vertebral bodies and posterior elements are intact; the height of intervertebral discs is maintained. Soft tissue windows show no evidence of epidural or p aravertebral hematoma. IMPRESSION: 1. No rmal CT scan of the cervical spine; 2. No evidence of acute osseous trau ma. at 5891 Rep orted and signed by: Tim Pride M.D. CC: Jayjay Zaman DO Technologist:Edda Glynn RT(R),CT; CTDI: DLP: Trnscb Date/Time: 09/27/2018 (6358) [email or web address] Orig Print D/T: S: 09/27/2018 (2462) PAGE 1 Signed Report - CT HEAD/BRAIN W/O CONT 2018-09-27 14:54:00 Name: LESVIA RUSSO [facility] : 1980 Age/S: 38 / M [address] Unit #: [id number] Loc: [place] [address] Phys: Jayjay Zaman DO Acct: [id number] Dis Date: Status: REG ER PHONE #: [phone] Exam Date: 09/27/2018 1447 FAX #: [phone] Reason: Altered Mental Status EXAMS: CPT CODE: [id number] CT HEAD/BRAIN W/O CONT 20410 EXAM: CT of the head without contrast; INFORMATION: Altered mental status, intoxicated; TECHNIQUE: CT dose reduction protocol; 2.5 mm axial scans; IMPRESSION: 1. No evidence of intracranial hemorrhage, acute territorial infarction, mass lesions or midline shift. 2. No evidence of skull fracture. 3. No change compared with a recent study from September 16, 2018. (Persistent small right frontal scalp hematoma.) at 1908 Reported and signed by: Tim Pride M.D. CC: Jayjay Zaman DO Technologist:Edda Glynn RT(R),CT; CTDI: DLP: Trnscb Date/Time: 09/27/2018 (3230) TanaGRW Orig Print D/T: S: 09/27/2018 (9762) PAGE 1 Signed Report [id number] 14:38:00* Test Item Value Reference Range Comments AMMONIA (test code=AMM) 59 umol/L 11-32 BASIC METABOLIC [id number] 14:34:00* Test Item Value Reference Range Comments SODIUM (test code=NA) 141 mmol/L 136-145 POTASSIUM (test code=K) 4.1 mmol/L 3.5-5.1 CHLORIDE (test code=CL) 109.0 mmol/L 98-107 CARBON DIOXIDE (test code=CO2) mmol/L 21-32 ANION GAP (test code=GAP) 10-20 GLUCOSE (test code=GLU) mg/dL 74-106 BLOOD UREA NITROGEN (test code=BUN) mg/dL 7-18 GLOMERULAR FILTRATION RATE (test code=GFR) mL/min >=60 CREATININE (test code=CREAT) mg/dL 0.7-1.3 BUN/CREATININE RATIO (test code=BUN/CREA) 10-20 CALCIUM (test code=CA) mg/dL 8.5-10.1 HEPATIC FUNCTION [id number] 14:34:00* Test Item Value Reference Range Comments TOTAL PROTEIN (test code=PROT) gram/dL 6.4-8.2 ALBUMIN (test code=ALB) g/dL 3.4-5.0 GLOBULIN (test code=GLOB) gram/dL 2.7-4.2 ALBUMIN/GLOBULIN RATIO (test code=A/G) 0.75-1.50 BILIRUBIN TOTAL (test code=BILT) mg/dL 0.0-1.0 BILIRUBIN DIRECT (test code=BILD) mg/dL 0.0-0.20 SGOT/AST (test code=AST) IUnit/L 15-37 SGPT/ALT (test code=ALT) IUnit/L 12-78 ALKALINE PHOSPHATASE TOTAL (test code=ALKP) IUnit/L 45-117 CREATINE KINASE (CK)2018-09-27 14:34:00* Test Item Value Reference Range Comments CREATINE KINASE (CK) (test code=CK) IUnit/L 26-208 [id number] 14:34:00* Test Item Value Reference Range Comments LIPASE (test code=LIP) U/L 73.0-393.0 [id number] 14:34:00* Test Item Value Reference Range Comments TROPONIN-I (test code=TROPI) ng/mL 0-0.045 [id number] 14:34:00* Test Item Value Reference Range Comments ACETAMINOPHEN (test code=ACET) mcg/mL 10-30 [id number] 14:34:00* Test Item Value Reference Range Comments SALICYLATE (test code=BARI) mg/dL 2.8-20.0 [id number] 14:34:00* Test Item Value Reference Range Comments ALCOHOL (test code=ALC) mg/dL 0-3 CBC W/AUTO [id number] 14:30:00* Test Item Value Reference Range Comments WHITE BLOOD CELL (test code=WBC) 9.0 K/mm3 4.5-12.5 RED BLOOD CELL (test code=RBC) 3.79 mill/mm3 4.0-5.8 HEMOGLOBIN (test code=HGB) 9.5 gram/dL 13.0-17.5 HEMATOCRIT (test code=HCT) 31.2 % 42.0-52.0 MEAN CELL VOLUME (test code=MCV) 82.3 fL 80-98 MEAN CELL HGB (test code=MCH) 25.1 picogram 27.0-33.0 MEAN CELL HGB CONCETRATION (test code=MCHC) 30.4 gram/dL 33.0-36.0 RED CELL DISTRIBUTION WIDTH (test code=RDW) 15.3 % 11.6-16.2 RED CELL DISTRIBUTION WIDTH SD (test code=RDW-SD) 46.2 fL 37.0-51.0 PLATELET COUNT (test code=PLT) 429 K/mm3 150-450 MEAN PLATELET VOLUME (test code=MPV) 8.1 fL 6.7-11.0 NEUTROPHIL % (test code=NT%) 59.0 % 39.0-69.0 IMMATURE GRANULOCYTE % (test code=IG%) 0.3 % 0.0-5.0 LYMPHOCYTE % (test code=LY%) 28.1 % 25.0-55.0 MONOCYTE % (test code=MO%) 9.3 % 0.0-10.0 EOSINOPHIL % (test code=EO%) 2.2 % 0.0-5.0 BASOPHIL % (test code=BA%) 1.1 % 0.0-1.0 NUCLEATED RBC % (test code=NRBC%) 0.0 % 0-0 NEUTROPHIL # (test code=NT#) 5.29 K/mm3 1.8-7.7 IMMATURE GRANULOCYTE # (test code=IG#) 0.03 x10 3/uL 0-0.03 LYMPHOCYTE # (test code=LY#) 2.53 K/mm3 1.0-5.0 MONOCYTE # (test code=MO#) 0.84 K/mm3 0-0.8 EOSINOPHIL # (test code=EO#) 0.20 K/mm3 0.0-0.5 BASOPHIL # (test code=BA#) 0.10 K/mm3 0.0-0.2 NUCLEATED RBC # (test code=NRBC#) 0.00 K/mm3 0.0-0.1 MANUAL DIFF REQUIRED (test code=MDIFF) NO [id number] 11:41:00* Test Item Value Reference Range Comments GLUBED (test code=GLUBED) 113 MG/DL 70-110 Performed by certified auxiliary equipment operator at [facility] [id number] 08:17:00* Test Item Value Reference Range Comments GLUBED (test code=GLUBED) 125 MG/DL 70-110 Performed by certified auxiliary equipment operator at [facility] CBC W/AUTO [id number] 07:42:00* Test Item Value Reference Range Comments WHITE BLOOD CELL (test code=WBC) 5.01 x10 3/uL 4.5-11.0 RED BLOOD CELL (test code=RBC) 3.24 x10 6/uL 4.00-5.60 HEMOGLOBIN (test code=HGB) 8.4 g/dL 12.5-16.9 HEMATOCRIT (test code=HCT) 27.8 % 37.5-50.7 MEAN CELL VOLUME (test code=MCV) 85.8 fL 81.0-99.0 MEAN CELL HGB (test code=MCH) 25.9 pg 27.0-33.0 MEAN CELL HGB CONCETRATION (test code=MCHC) 30.2 g/dL 33.0-37.0 RED CELL DISTRIBUTION WIDTH CV (test code=RDW) 15.0 % 11.5-14.5 RED CELL DISTRIBUTION WIDTH SD (test code=RDW-SD) 47.3 fL 37.0-54.0 PLATELET COUNT (test code=PLT) 432 x10 3/uL 150-400 MEAN PLATELET VOLUME (test code=MPV) 8.3 fL 7.0-9.0 NEUTROPHIL % (test code=NT%) 40.5 % 56.0-77.0 IMMATURE GRANULOCYTE % (test code=IG%) 1.0 % 0.0-2.0 LYMPHOCYTE % (test code=LY%) 42.3 % 14.0-32.0 MONOCYTE % (test code=MO%) 10.8 % 4.8-9.0 EOSINOPHIL % (test code=EO%) 4.4 % 0.3-3.7 BASOPHIL % (test code=BA%) 1.0 % 0.0-2.0 NUCLEATED RBC % (test code=NRBC%) 0.0 % 0-0 NEUTROPHIL # (test code=NT#) 2.03 x10 3/uL 2.0-7.6 IMMATURE GRANULOCYTE # (test code=IG#) 0.05 x10 3/uL 0.00-0.03 LYMPHOCYTE # (test code=LY#) 2.12 x10 3/uL 1.0-3.8 MONOCYTE # (test code=MO#) 0.54 x10 3/uL 0.1-0.8 EOSINOPHIL # (test code=EO#) 0.22 x10 3/uL 0.0-0.2 BASOPHIL # (test code=BA#) 0.05 x10 3/uL 0.0-0.2 NUCLEATED RBC # (test code=NRBC#) 0.00 x10 3/uL 0.0-0.1 MANUAL DIFF REQUIRED (test code=MDIFF) NO BASIC METABOLIC [id number] 07:34:00* Test Item Value Reference Range Comments SODIUM (test code=NA) 141 mEq/L 134-147 POTASSIUM (test code=K) 4.2 mEq/L 3.4-5.0 CHLORIDE (test code=CL) 108 mEq/L 100-108 CARBON DIOXIDE (test code=CO2) 24 mEq/L 21-33 ANION GAP (test code=GAP) 13 0-20 GLUCOSE (test code=GLU) 119 mg/dL 70-110 BLOOD UREA NITROGEN (test code=BUN) 7 mg/dL 7-18 GLOMERULAR FILTRATION RATE (test code=GFR) 108.2 105-110 Units of measure=ml/min/1.73 m2 CREATININE (test code=CREAT) 0.8 mg/dL 0.6-1.3 CALCIUM (test code=CA) 8.5 mg/dL 8.0-10.5 [id number] 20:35:00* Test Item Value Reference Range Comments GLUBED (test code=GLUBED) 129 MG/DL 70-110 Performed by certified auxiliary equipment operator at [facility] [id number] 17:06:00* Test Item Value Reference Range Comments GLUBED (test code=GLUBED) 108 MG/DL 70-110 Performed by certified auxiliary equipment operator at [facility] [id number] 13:09:00* Test Item Value Reference Range Comments GLUBED (test code=GLUBED) 148 MG/DL 70-110 Performed by certified auxiliary equipment operator at [facility] BASIC METABOLIC [id number] 08:25:00* Test Item Value Reference Range Comments SODIUM (test code=NA) 139 mEq/L 134-147 POTASSIUM (test code=K) 3.9 mEq/L 3.4-5.0 CHLORIDE (test code=CL) 107 mEq/L 100-108 CARBON DIOXIDE (test code=CO2) 23 mEq/L 21-33 ANION GAP (test code=GAP) 13 0-20 GLUCOSE (test code=GLU) 113 mg/dL 70-110 BLOOD UREA NITROGEN (test code=BUN) 7 mg/dL 7-18 GLOMERULAR FILTRATION RATE (test code=GFR) 108.2 105-110 Units of measure=ml/min/1.73 m2 CREATININE (test code=CREAT) 0.8 mg/dL 0.6-1.3 CALCIUM (test code=CA) 8.4 mg/dL 8.0-10.5 CBC W/AUTO [id number] 07:52:00* Test Item Value Reference Range Comments WHITE BLOOD CELL (test code=WBC) 4.82 x10 3/uL 4.5-11.0 RED BLOOD CELL (test code=RBC) 3.13 x10 6/uL 4.00-5.60 HEMOGLOBIN (test code=HGB) 8.1 g/dL 12.5-16.9 HEMATOCRIT (test code=HCT) 26.8 % 37.5-50.7 MEAN CELL VOLUME (test code=MCV) 85.6 fL 81.0-99.0 MEAN CELL HGB (test code=MCH) 25.9 pg 27.0-33.0 MEAN CELL HGB CONCETRATION (test code=MCHC) 30.2 g/dL 33.0-37.0 RED CELL DISTRIBUTION WIDTH CV (test code=RDW) 14.9 % 11.5-14.5 RED CELL DISTRIBUTION WIDTH SD (test code=RDW-SD) 46.6 fL 37.0-54.0 PLATELET COUNT (test code=PLT) 416 x10 3/uL 150-400 MEAN PLATELET VOLUME (test code=MPV) 8.5 fL 7.0-9.0 NEUTROPHIL % (test code=NT%) 41.5 % 56.0-77.0 IMMATURE GRANULOCYTE % (test code=IG%) 0.6 % 0.0-2.0 LYMPHOCYTE % (test code=LY%) 38.0 % 14.0-32.0 MONOCYTE % (test code=MO%) 11.8 % 4.8-9.0 EOSINOPHIL % (test code=EO%) 6.6 % 0.3-3.7 BASOPHIL % (test code=BA%) 1.5 % 0.0-2.0 NUCLEATED RBC % (test code=NRBC%) 0.0 % 0-0 NEUTROPHIL # (test code=NT#) 2.00 x10 3/uL 2.0-7.6 IMMATURE GRANULOCYTE # (test code=IG#) 0.03 x10 3/uL 0.00-0.03 LYMPHOCYTE # (test code=LY#) 1.83 x10 3/uL 1.0-3.8 MONOCYTE # (test code=MO#) 0.57 x10 3/uL 0.1-0.8 EOSINOPHIL # (test code=EO#) 0.32 x10 3/uL 0.0-0.2 BASOPHIL # (test code=BA#) 0.07 x10 3/uL 0.0-0.2 NUCLEATED RBC # (test code=NRBC#) 0.00 x10 3/uL 0.0-0.1 MANUAL DIFF REQUIRED (test code=MDIFF) NO [id number] 07:46:00* Test Item Value Reference Range Comments GLUBED (test code=GLUBED) 123 MG/DL 70-110 Performed by certified auxiliary equipment operator at [facility] [id number] 20:57:00* Test Item Value Reference Range Comments GLUBED (test code=GLUBED) 151 MG/DL 70-110 Performed by certified auxiliary equipment operator at [facility] [id number] 17:37:00* Test Item Value Reference Range Comments GLUBED (test code=GLUBED) 140 MG/DL 70-110 Performed by certified auxiliary equipment operator at [facility] [id number] 17:37:00* Test Item Value Reference Range Comments GLUBED (test code=GLUBED) 113 MG/DL 70-110 Performed by certified auxiliary equipment operator at [facility] VANCOMYCIN [id number] 16:31:00* Test Item Value Reference Range Comments VANCOMYCIN TROUGH (test code=VANCT) 13.4 mcg/mL 10.0-20.0 10-15 mcg/mL - Cellulitis, Urinary Tract Infection. 15-20 mcg/mL - Bacteremia, Infective Endocarditis, Meningitis, Osteomyelitis, Pneumonia, Severe Skin/Soft- Tissue Infection, Spinal Abscess. - MRI LW JNT W WO CONT [id number] 11:35:00 FAX: Jenny Mcmillan MD [phone] [place]: St: ADM Name: LESVIA MCCLELLAN [facility] : [birth year] 81 Age/S: 38/M [address] [place] [address] Unit #: [id number] Loc: G.[address] [place] [address] Phys: Jenny Mcmillan MD Acct: [id number] Dis Date: Status: ADM IN PHONE #: [phone] Exam Date: 09/21/20181926 FAX #: [phone] Reason: pain, redness, hx of ORIF, noncompliance "disch EXAMS: CPT CODE: [id number] [place] [id number] - MRI LW T W WO CONT LT, 09/21/2018 12:01 AM INDICATION: Leg cellulitis. COMPARISON: Radiograph 09/20/2018 TECHNIQUE: Multi-planar, multi-sequence MR im aging of the left lower extremity extremity was performed using routine pr otocol before and after the intravenous administration of 21 mL of gadoli nium-based contrast. AREA IMAGED: Distal left leg and ankle FINDINGS: . Soft tissues: Subcutaneous edema noted with soft tissue infiltration. No focal fluid collections. Assessment of soft ti ssues is somewhat limited by hardware artifact. There is thickening of th e central cord of the plantar fascia at insertion as well as in the central noninsertional component. No evidence for tear. . Bones: Status post lateral plate and screw fixation of distal fibula. Assessment of the hardware and the fibula is limited secondary to extensive artifact. There is also artifact from repair of the syndesmosis with syndesmotic screw and type treasure fixation. The remaining marrow signal within the remaining os seous structures appears unremarkable. . Joints: Tibiotalar joint i s grossly preserved. Negative for large joint effusion. Assessment limit ed secondary artifact. Anatomic alignment the visualized midfoot. . Ligaments: Grossly intact deltoid complex. Limited assessment lateral l igaments secondary to extensive artifact from hardware. At least a portio n of the ATFL and posterior talofibular ligament are visualized and appear intact. Syndesmotic ligaments not well assessed. . Tendons: The fl exor and peroneal tendons intact. The extensor and Achilles tendons are a lso unremarkable. IMPRESSION: 1. Limited asse ssment secondary to hardware artifact. 2. Status post lateral plate and screw fixation of the fibula. Assessment of the hardware and degree of healing is limited secondary to extensive artifact. Correlated with pr evious radiograph and if indicated consider CT. 3. Additional p ostsurgical changes from syndesmotic fixation. 4. Mild subcutaneous kerline ma. No focal fluid collections. PAGE 1 Signed Report (CONTINUED) FAX: Jenny Mcmillan MD [phone] [place]: St: ADM Name: LESVIA RUSSO [facility] : 1980 Age/S: 38/M [address] [place] [address] Unit #: [id number] Loc: G548 [place] [address] Phys: Jenny Mcmillan MD Acct: [id number] Dis Date: Status: ADM IN PHONE #: [phone] Exam Date: 09/21/20181926 FAX #: [phone] Reason: pain, redness, hx of ORIF, noncompliance "disch EXAMS: CPT CODE: [id number] [place] [address] < Continued> 5. 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 6. No acute ligamentous or tendon injury SL: YOLANDA at 1135 Reported and signed by: Ever Stoll M.D. CC: Jenny Mcmillan MD Technologist: Romina Borrero RT(MR)(CT) Trnscrd Date/Time/By: 09/22/2018 (1135) : By: [email or web address] Orig Print D/T: S: 09/22/2018 (113) PAGE 2 Signed Report [id number] 09:14:00* Test Item Value Reference Range Comments GLUBED (test code=GLUBED) 111 MG/DL 70-110 Performed by certified auxiliary equipment operator at [facility] CBC W/AUTO [id number] 08:33:00* Test Item Value Reference Range Comments WHITE BLOOD CELL (test code=WBC) 5.86 x10 3/uL 4.5-11.0 RED BLOOD CELL (test code=RBC) 3.10 x10 6/uL 4.00-5.60 HEMOGLOBIN (test code=HGB) 8.1 g/dL 12.5-16.9 HEMATOCRIT (test code=HCT) 27.3 % 37.5-50.7 MEAN CELL VOLUME (test code=MCV) 88.1 fL 81.0-99.0 MEAN CELL HGB (test code=MCH) 26.1 pg 27.0-33.0 MEAN CELL HGB CONCETRATION (test code=MCHC) 29.7 g/dL 33.0-37.0 RED CELL DISTRIBUTION WIDTH CV (test code=RDW) 15.0 % 11.5-14.5 RED CELL DISTRIBUTION WIDTH SD (test code=RDW-SD) 48.6 fL 37.0-54.0 PLATELET COUNT (test code=PLT) 447 x10 3/uL 150-400 MEAN PLATELET VOLUME (test code=MPV) 8.5 fL 7.0-9.0 NEUTROPHIL % (test code=NT%) 44.2 % 56.0-77.0 IMMATURE GRANULOCYTE % (test code=IG%) 0.7 % 0.0-2.0 LYMPHOCYTE % (test code=LY%) 35.3 % 14.0-32.0 MONOCYTE % (test code=MO%) 12.6 % 4.8-9.0 EOSINOPHIL % (test code=EO%) 6.0 % 0.3-3.7 BASOPHIL % (test code=BA%) 1.2 % 0.0-2.0 NUCLEATED RBC % (test code=NRBC%) 0.0 % 0-0 NEUTROPHIL # (test code=NT#) 2.59 x10 3/uL 2.0-7.6 IMMATURE GRANULOCYTE # (test code=IG#) 0.04 x10 3/uL 0.00-0.03 LYMPHOCYTE # (test code=LY#) 2.07 x10 3/uL 1.0-3.8 MONOCYTE # (test code=MO#) 0.74 x10 3/uL 0.1-0.8 EOSINOPHIL # (test code=EO#) 0.35 x10 3/uL 0.0-0.2 BASOPHIL # (test code=BA#) 0.07 x10 3/uL 0.0-0.2 NUCLEATED RBC # (test code=NRBC#) 0.00 x10 3/uL 0.0-0.1 MANUAL DIFF REQUIRED (test code=MDIFF) NO BASIC METABOLIC [id number] 08:18:00* Test Item Value Reference Range Comments SODIUM (test code=NA) 137 mEq/L 134-147 POTASSIUM (test code=K) 4.4 mEq/L 3.4-5.0 CHLORIDE (test code=CL) 105 mEq/L 100-108 CARBON DIOXIDE (test code=CO2) 24 mEq/L 21-33 ANION GAP (test code=GAP) 12 0-20 GLUCOSE (test code=GLU) 152 mg/dL 70-110 BLOOD UREA NITROGEN (test code=BUN) 9 mg/dL 7-18 GLOMERULAR FILTRATION RATE (test code=GFR) 94.4 105-110 Units of measure=ml/min/1.73 m2 CREATININE (test code=CREAT) 0.9 mg/dL 0.6-1.3 CALCIUM (test code=CA) 8.6 mg/dL 8.0-10.5 [id number] 21:19:00* Test Item Value Reference Range Comments GLUBED (test code=GLUBED) 147 MG/DL 70-110 Performed by certified auxiliary equipment operator at [facility] [id number] 16:57:00* Test Item Value Reference Range Comments GLUBED (test code=GLUBED) 123 MG/DL 70-110 Performed by certified auxiliary equipment operator at [facility] [id number] 13:24:00* Test Item Value Reference Range Comments GLUBED (test code=GLUBED) 133 MG/DL 70-110 Performed by certified auxiliary equipment operator at [facility] [id number] 09:06:00* Test Item Value Reference Range Comments HGBA1C% (test code=HGBA1C%) 6.3 %A1C 4.8-6.0 [id number] 08:51:00* Test Item Value Reference Range Comments GLUBED (test code=GLUBED) 103 MG/DL 70-110 Performed by certified auxiliary equipment operator at [facility] CBC W/AUTO [id number] 08:44:00* Test Item Value Reference Range Comments WHITE BLOOD CELL (test code=WBC) 8.29 x10 3/uL 4.5-11.0 RED BLOOD CELL (test code=RBC) 3.41 x10 6/uL 4.00-5.60 HEMOGLOBIN (test code=HGB) 8.7 g/dL 12.5-16.9 HEMATOCRIT (test code=HCT) 28.6 % 37.5-50.7 MEAN CELL VOLUME (test code=MCV) 83.9 fL 81.0-99.0 MEAN CELL HGB (test code=MCH) 25.5 pg 27.0-33.0 MEAN CELL HGB CONCETRATION (test code=MCHC) 30.4 g/dL 33.0-37.0 RED CELL DISTRIBUTION WIDTH CV (test code=RDW) 14.7 % 11.5-14.5 RED CELL DISTRIBUTION WIDTH SD (test code=RDW-SD) 45.4 fL 37.0-54.0 PLATELET COUNT (test code=PLT) 473 x10 3/uL 150-400 MEAN PLATELET VOLUME (test code=MPV) 8.6 fL 7.0-9.0 NEUTROPHIL % (test code=NT%) 60.6 % 56.0-77.0 IMMATURE GRANULOCYTE % (test code=IG%) 0.6 % 0.0-2.0 LYMPHOCYTE % (test code=LY%) 23.0 % 14.0-32.0 MONOCYTE % (test code=MO%) 10.6 % 4.8-9.0 EOSINOPHIL % (test code=EO%) 4.5 % 0.3-3.7 BASOPHIL % (test code=BA%) 0.7 % 0.0-2.0 NUCLEATED RBC % (test code=NRBC%) 0.0 % 0-0 NEUTROPHIL # (test code=NT#) 5.02 x10 3/uL 2.0-7.6 IMMATURE GRANULOCYTE # (test code=IG#) 0.05 x10 3/uL 0.00-0.03 LYMPHOCYTE # (test code=LY#) 1.91 x10 3/uL 1.0-3.8 MONOCYTE # (test code=MO#) 0.88 x10 3/uL 0.1-0.8 EOSINOPHIL # (test code=EO#) 0.37 x10 3/uL 0.0-0.2 BASOPHIL # (test code=BA#) 0.06 x10 3/uL 0.0-0.2 NUCLEATED RBC # (test code=NRBC#) 0.00 x10 3/uL 0.0-0.1 MANUAL DIFF REQUIRED (test code=MDIFF) NO BASIC METABOLIC [id number] 07:39:00* Test Item Value Reference Range Comments SODIUM (test code=NA) 139 mEq/L 134-147 POTASSIUM (test code=K) 3.6 mEq/L 3.4-5.0 CHLORIDE (test code=CL) 105 mEq/L 100-108 CARBON DIOXIDE (test code=CO2) 20 mEq/L 21-33 ANION GAP (test code=GAP) 18 0-20 GLUCOSE (test code=GLU) 98 mg/dL 70-110 BLOOD UREA NITROGEN (test code=BUN) 12 mg/dL 7-18 GLOMERULAR FILTRATION RATE (test code=GFR) 126.2 105-110 Units of measure=ml/min/1.73 m2 CREATININE (test code=CREAT) 0.7 mg/dL 0.6-1.3 CALCIUM (test code=CA) 8.7 mg/dL 8.0-10.5 THYROID STIMULATING [id number] 07:39:00* Test Item Value Reference Range Comments THYROID STIMULATING HORMONE (test code=TSH) 4.92 0.42-5.47 Results in deana-International Units/mL [id number] 00:35:00* Test Item Value Reference Range Comments GLUBED (test code=GLUBED) 120 MG/DL 70-110 Performed by certified auxiliary equipment operator at [facility] CBC W/AUTO [id number] 22:24:00* Test Item Value Reference Range Comments WHITE BLOOD CELL (test code=WBC) 9.39 x10 3/uL 4.5-11.0 RED BLOOD CELL (test code=RBC) 3.22 x10 6/uL 4.00-5.60 HEMOGLOBIN (test code=HGB) 8.4 g/dL 12.5-16.9 HEMATOCRIT (test code=HCT) 27.5 % 37.5-50.7 MEAN CELL VOLUME (test code=MCV) 85.4 fL 81.0-99.0 MEAN CELL HGB (test code=MCH) 26.1 pg 27.0-33.0 MEAN CELL HGB CONCETRATION (test code=MCHC) 30.5 g/dL 33.0-37.0 RED CELL DISTRIBUTION WIDTH CV (test code=RDW) 14.7 % 11.5-14.5 RED CELL DISTRIBUTION WIDTH SD (test code=RDW-SD) 45.4 fL 37.0-54.0 PLATELET COUNT (test code=PLT) 426 x10 3/uL 150-400 MEAN PLATELET VOLUME (test code=MPV) 8.4 fL 7.0-9.0 NEUTROPHIL % (test code=NT%) 64.7 % 56.0-77.0 IMMATURE GRANULOCYTE % (test code=IG%) 0.6 % 0.0-2.0 LYMPHOCYTE % (test code=LY%) 21.6 % 14.0-32.0 MONOCYTE % (test code=MO%) 9.2 % 4.8-9.0 EOSINOPHIL % (test code=EO%) 3.5 % 0.3-3.7 BASOPHIL % (test code=BA%) 0.4 % 0.0-2.0 NUCLEATED RBC % (test code=NRBC%) 0.0 % 0-0 NEUTROPHIL # (test code=NT#) 6.07 x10 3/uL 2.0-7.6 IMMATURE GRANULOCYTE # (test code=IG#) 0.06 x10 3/uL 0.00-0.03 LYMPHOCYTE # (test code=LY#) 2.03 x10 3/uL 1.0-3.8 MONOCYTE # (test code=MO#) 0.86 x10 3/uL 0.1-0.8 EOSINOPHIL # (test code=EO#) 0.33 x10 3/uL 0.0-0.2 BASOPHIL # (test code=BA#) 0.04 x10 3/uL 0.0-0.2 NUCLEATED RBC # (test code=NRBC#) 0.00 x10 3/uL 0.0-0.1 MANUAL DIFF REQUIRED (test code=MDIFF) NO SED RATE [id number] 22:24:00* Test Item Value Reference Range Comments SED RATE WESTERGREN (test code=SEDW) 71 mm/hr 0-15 COMPREHENSIVE METABOLIC [id number] 22:15:00* Test Item Value Reference Range Comments SODIUM (test code=NA) 136 mEq/L 134-147 POTASSIUM (test code=K) 3.4 mEq/L 3.4-5.0 CHLORIDE (test code=CL) 101 mEq/L 100-108 CARBON DIOXIDE (test code=CO2) 27 mEq/L 21-33 ANION GAP (test code=GAP) 11 0-20 GLUCOSE (test code=GLU) 145 mg/dL 70-110 BLOOD UREA NITROGEN (test code=BUN) 17 mg/dL 7-18 GLOMERULAR FILTRATION RATE (test code=GFR) 83.6 105-110 Units of measure=ml/min/1.73 m2 CREATININE (test code=CREAT) 1.0 mg/dL 0.6-1.3 TOTAL PROTEIN (test code=PROT) 7.7 g/dL 6.4-8.2 ALBUMIN (test code=ALB) 3.50 g/dL 3.4-5.0 CALCIUM (test code=CA) 8.6 mg/dL 8.0-10.5 BILIRUBIN TOTAL (test code=BILT) 0.30 mg/dL 0.0-1.0 SGOT/AST (test code=AST) 55 IUnit/L 15-37 SGPT/ALT (test code=ALT) 58 IUnit/L 15-65 ALKALINE PHOSPHATASE TOTAL (test code=ALKP) 141 IUnit/L 20-125 C REACTIVE [id number] 22:12:00* Test Item Value Reference Range Comments C REACTIVE PROTEIN (test code=CRP) 12.0 MG/L 0.0-2.9 COMPREHENSIVE METABOLIC [id number] 22:12:00* Test Item Value Reference Range Comments SODIUM (test code=NA) 136 mEq/L 134-147 POTASSIUM (test code=K) 3.4 mEq/L 3.4-5.0 CHLORIDE (test code=CL) 101 mEq/L 100-108 CARBON DIOXIDE (test code=CO2) 27 mEq/L 21-33 ANION GAP (test code=GAP) 11 0-20 GLUCOSE (test code=GLU) 145 mg/dL 70-110 BLOOD UREA NITROGEN (test code=BUN) 17 mg/dL 7-18 GLOMERULAR FILTRATION RATE (test code=GFR) 83.6 105-110 Units of measure=ml/min/1.73 m2 CREATININE (test code=CREAT) 1.0 mg/dL 0.6-1.3 TOTAL PROTEIN (test code=PROT) g/dL 6.4-8.2 ALBUMIN (test code=ALB) 3.50 g/dL 3.4-5.0 CALCIUM (test code=CA) 8.6 mg/dL 8.0-10.5 BILIRUBIN TOTAL (test code=BILT) mg/dL 0.0-1.0 SGOT/AST (test code=AST) 55 IUnit/L 15-37 SGPT/ALT (test code=ALT) 58 IUnit/L 15-65 ALKALINE PHOSPHATASE TOTAL (test code=ALKP) IUnit/L 20-125 CBC W/AUTO [id number] 21:55:00* Test Item Value Reference Range Comments WHITE BLOOD CELL (test code=WBC) 9.39 x10 3/uL 4.5-11.0 RED BLOOD CELL (test code=RBC) 3.22 x10 6/uL 4.00-5.60 HEMOGLOBIN (test code=HGB) 8.4 g/dL 12.5-16.9 HEMATOCRIT (test code=HCT) 27.5 % 37.5-50.7 MEAN CELL VOLUME (test code=MCV) 85.4 fL 81.0-99.0 MEAN CELL HGB (test code=MCH) 26.1 pg 27.0-33.0 MEAN CELL HGB CONCETRATION (test code=MCHC) 30.5 g/dL 33.0-37.0 RED CELL DISTRIBUTION WIDTH CV (test code=RDW) 14.7 % 11.5-14.5 RED CELL DISTRIBUTION WIDTH SD (test code=RDW-SD) 45.4 fL 37.0-54.0 PLATELET COUNT (test code=PLT) 426 x10 3/uL 150-400 MEAN PLATELET VOLUME (test code=MPV) 8.4 fL 7.0-9.0 NEUTROPHIL % (test code=NT%) 64.7 % 56.0-77.0 IMMATURE GRANULOCYTE % (test code=IG%) 0.6 % 0.0-2.0 LYMPHOCYTE % (test code=LY%) 21.6 % 14.0-32.0 MONOCYTE % (test code=MO%) 9.2 % 4.8-9.0 EOSINOPHIL % (test code=EO%) 3.5 % 0.3-3.7 BASOPHIL % (test code=BA%) 0.4 % 0.0-2.0 NUCLEATED RBC % (test code=NRBC%) 0.0 % 0-0 NEUTROPHIL # (test code=NT#) 6.07 x10 3/uL 2.0-7.6 IMMATURE GRANULOCYTE # (test code=IG#) 0.06 x10 3/uL 0.00-0.03 LYMPHOCYTE # (test code=LY#) 2.03 x10 3/uL 1.0-3.8 MONOCYTE # (test code=MO#) 0.86 x10 3/uL 0.1-0.8 EOSINOPHIL # (test code=EO#) 0.33 x10 3/uL 0.0-0.2 BASOPHIL # (test code=BA#) 0.04 x10 3/uL 0.0-0.2 NUCLEATED RBC # (test code=NRBC#) 0.00 x10 3/uL 0.0-0.1 MANUAL DIFF REQUIRED (test code=MDIFF) NO SED RATE [id number] 21:55:00* Test Item Value Reference Range Comments SED RATE WESTERGREN (test code=SEDW) mm/hr 0-15 - XR ANKLE 3 + V [id number] 21:12:00 FAX: Jair Ibanez DO [phone] [place]: St: REG Name: LESVIA MCCLELLAN [facility] : [birth year] Age/S: 38/M [address] [place] [address] Unit #: [id number] Loc: [address] [address] Phys: Jair Dunham DO Acct: [id number] Dis Date: Status: REG ER PHONE #: [phone] Exam Date: 09/20/20182052 FAX #: [phone] Reason: LEFT ANKLE PAIN EXAMS: CPT CODE: [id number] XR ANKLE 3 + [place] [address] Left ankle 3 view HI STORY: Left ankle pain. Comparison made to 09/05/18 ankle series. FINDINGS: Lag screw transversing the distal left tib ia and fibula is fractured, no change from prior. Lucency seen surroundin g the lag screw as well as fibular fixation screws noted. There is perios teal reaction at a comminuted distal left fibular fracture with stable ali gnment. Bimalleolar ankle edema is again noted. IMPRESSIO N: 1. Loosening of screws associated with a fibular fixation plate and a tibiofibular lag screw noted. Superinfection of jed dware/osteomyelitis is not excluded radiographically. 2. Stable appeara nce of healing distal left fibular fracture. SL:01 at 2112 Reported and sig jared by: Cristopher Collins M.D. CC: Jair Dunham DO Technologist: Mitzi Up, RT(R); Re Estrada RT(R) [facility] Date/Time/By: 09/20/2018 (2111) : By: Smitha Orig Print D/T: S: 09/20/2018 (2115) PAGE 1 Signed Report [id number] 20:02:00 * Test Item Value Reference Range Comments GLUBED (test code=GLUBED) 153 MG/DL 70-110 Performed by certified auxiliary equipment operator at [facility] [id number] 03:01:00* Test Item Value Reference Range Comments ALCOHOL (test code=ALC) 140 mg/dL 0.0-3.0 INTERPRETIVE DATA NOTE: POSITIVE SCREENING RESULTS SHOULD BE CONSIDERED PRESUMPTIVE.WHEN COLLECTED FOR MEDICAL PURPOSES ONLY. SPECIMEN WILL NOTBE COLLECTED BY CHAIN OF CUSTODY.IF A CONFIRMATION OF POSITIVE RESULTS IS DESIRED, ACONFIRMATION TEST MUST BE REQUESTED BY THE PHYSICIAN AT ANADDITIONAL CHARGE TO THE PATIENT. URINALYSIS [id number] 02:24:00* Test Item Value Reference Range Comments UA COLOR (test code=COLU) Light-Yellow YELLOW UA APPEARANCE (test code=APPU) CLEAR CLEAR UA GLUCOSE DIPSTICK (test code=DGLUU) NEGATIVE mg/dL NEGATIVE UA BILIRUBIN DIPSTICK (test code=BILU) NEGATIVE mg/dL NEGATIVE UA KETONE DIPSTICK (test code=KETU) NEGATIVE mg/dL NEGATIVE UA SPECIFIC GRAVITY (test code=SGU) 1.025 1.001-1.035 UA BLOOD DIPSTICK (test code=KILO) Negative mg/dL NEGATIVE UA PH DIPSTICK (test code=PRICILA) 6.0 5.0-8.0 UA PROTEIN DIPSTICK (test code=PROU) 200 (2+) mg/dL NEGATIVE UA UROBILINIOGEN DIPSTICK (test code=URO) Normal mg/dL NEGATIVE UA NITRITE DIPSTICK (test code=ELIOT) NEGATIVE NEGATIVE UA LEUKOCYTE ESTERASE W REFLEX (test code=LEUUR) NEGATIVE Teo/uL NEGATIVE UA WBC (test code=WBCU) 0-5 per HPF 0-5 UA RBC (test code=RBCU) 0-2 #/HPF 0-5 UA EPITHELIAL CELLS (test code=EPIU) FEW per HPF FEW UA BACTERIA (test code=BACU) NONE SEEN #/HPF NONE UA MUCUS (test code=MUCU) FEW #/LPF FEW Urine Source? Clean CatchDRUGS OF ABUSE SCREEN [id number] 02:24:00* Test Item Value Reference Range Comments URN COCAINE (test code=COCAURN) NEGATIVE <300 ng/mL URN CANNABINOIDS (test code=CANNABURN) NEGATIVE <50 ng/mL URN AMPHETAMINE (test code=AMPHETURN) NEGATIVE <1000 ng/mL URN BARBITURATE (test code=BARBITURN) NEGATIVE <200 ng/mL URN BENZODIAZEPINE (test code=BENZOURN) POSITIVE <200 ng/mL This test provides only a preliminary test result. A morespecific alternate chemical method must be used in order toobtain a confirmed analytical result. Gas chromatography/mass spectrometry (GC/MS) is thepreferred confirmatory method. Other chemical confirmationmethods are available. Clinical consideration and professional judgment should be applied to any drug of abusetest result, particularly when preliminary positive resultsare used.Unconfirmed screening results must not be used fornon-medical purposes (e.g., employment testing, legaltesting). URN OPIATES (test code=OPIATURN) NEGATIVE <300 ng/mL URN PHENCYCLIDINE (PCP) (test code=PHENCURN) NEGATIVE <25 ng/mL URN METHADONE (test code=METHAURN) NEGATIVE <300 ng/mL Urine Source? Clean CatchURINALYSIS [id number] 02:14:00* Test Item Value Reference Range Comments UA COLOR (test code=COLU) Light-Yellow YELLOW UA APPEARANCE (test code=APPU) CLEAR CLEAR UA GLUCOSE DIPSTICK (test code=DGLUU) NEGATIVE mg/dL NEGATIVE UA BILIRUBIN DIPSTICK (test code=BILU) NEGATIVE mg/dL NEGATIVE UA KETONE DIPSTICK (test code=KETU) NEGATIVE mg/dL NEGATIVE UA SPECIFIC GRAVITY (test code=SGU) 1.025 1.001-1.035 UA BLOOD DIPSTICK (test code=KILO) Negative mg/dL NEGATIVE UA PH DIPSTICK (test code=PRICILA) 6.0 5.0-8.0 UA PROTEIN DIPSTICK (test code=PROU) 200 (2+) mg/dL NEGATIVE UA UROBILINIOGEN DIPSTICK (test code=URO) Normal mg/dL NEGATIVE UA NITRITE DIPSTICK (test code=ELIOT) NEGATIVE NEGATIVE UA LEUKOCYTE ESTERASE W REFLEX (test code=LEUUR) NEGATIVE Teo/uL NEGATIVE UA WBC (test code=WBCU) 0-5 per HPF 0-5 UA RBC (test code=RBCU) 0-2 #/HPF 0-5 UA EPITHELIAL CELLS (test code=EPIU) FEW per HPF FEW UA BACTERIA (test code=BACU) NONE SEEN #/HPF NONE UA MUCUS (test code=MUCU) FEW #/LPF FEW Urine Source? Clean CatchDRUGS OF ABUSE SCREEN [id number] 02:14:00* Test Item Value Reference Range Comments URN COCAINE (test code=COCAURN) <300 ng/mL URN CANNABINOIDS (test code=CANNABURN) <50 ng/mL URN AMPHETAMINE (test code=AMPHETURN) <1000 ng/mL URN BARBITURATE (test code=BARBITURN) <200 ng/mL URN BENZODIAZEPINE (test code=BENZOURN) <200 ng/mL URN OPIATES (test code=OPIATURN) <300 ng/mL URN PHENCYCLIDINE (PCP) (test code=PHENCURN) <25 ng/mL URN METHADONE (test code=METHAURN) <300 ng/mL Urine Source? Clean CatchBASIC METABOLIC [id number] 21:44:00* Test Item Value Reference Range Comments SODIUM (test code=NA) 140 mmol/L 136-145 POTASSIUM (test code=K) 3.7 mmol/L 3.5-5.1 CHLORIDE (test code=CL) 106.0 mmol/L 98-107 CARBON DIOXIDE (test code=CO2) 22.0 mmol/L 21-32 ANION GAP (test code=GAP) 15.7 10-20 GLUCOSE (test code=GLU) 171 mg/dL 74-106 BLOOD UREA NITROGEN (test code=BUN) 8 mg/dL 7-18 GLOMERULAR FILTRATION RATE (test code=GFR) > 60 mL/min >=60 Estimated GFR by using Modified MDRD formula.Chronic kidney disease is defined as either kidney damageor GFR <60 mL/min/1.73 m2 for >3 months. CREATININE (test code=CREAT) 0.80 mg/dL 0.7-1.3 BUN/CREATININE RATIO (test code=BUN/CREA) 10.0 10-20 CALCIUM (test code=CA) 9.4 mg/dL 8.5-10.1 HEPATIC FUNCTION [id number] 21:44:00* Test Item Value Reference Range Comments TOTAL PROTEIN (test code=PROT) 8.2 gram/dL 6.4-8.2 ALBUMIN (test code=ALB) 3.6 g/dL 3.4-5.0 GLOBULIN (test code=GLOB) 4.6 gram/dL 2.7-4.2 ALBUMIN/GLOBULIN RATIO (test code=A/G) 0.8 0.75-1.50 BILIRUBIN TOTAL (test code=BILT) 0.20 mg/dL 0.0-1.0 BILIRUBIN DIRECT (test code=BILD) 0.10 mg/dL 0.0-0.20 SGOT/AST (test code=AST) 40 IUnit/L 15-37 SGPT/ALT (test code=ALT) 35 IUnit/L 12-78 ALKALINE PHOSPHATASE TOTAL (test code=ALKP) 190 IUnit/L 45-117 Note change in reference range due to change in reagent. OSMOLALITY [id number] 21:44:00* Test Item Value Reference Range Comments OSMOLALITY SERUM (test code=OSMO) 381.5 mOsm/kg 275-295 [id number] 21:44:00* Test Item Value Reference Range Comments ACETAMINOPHEN (test code=ACET) < 10 mcg/mL 10-30 A RANGE OF 10-30 mcg/mL IS A THERAPEUTIC RANGE. TOXIC CONCENTRATIONS: >150 mcg/mL AT 4 HOURS AFTER INGESTION >=50 mcg/mL AT 12 HOURS AFTER INGESTION [id number] 21:44:00* Test Item Value Reference Range Comments SALICYLATE (test code=BARI) 3.2 mg/dL 2.8-20.0 [id number] 21:44:00* Test Item Value Reference Range Comments ALCOHOL (test code=ALC) 295 mg/dL 0.0-3.0 INTERPRETIVE DATA NOTE: POSITIVE SCREENING RESULTS SHOULD BE CONSIDERED PRESUMPTIVE.WHEN COLLECTED FOR MEDICAL PURPOSES ONLY. SPECIMEN WILL NOTBE COLLECTED BY CHAIN OF CUSTODY.IF A CONFIRMATION OF POSITIVE RESULTS IS DESIRED, ACONFIRMATION TEST MUST BE REQUESTED BY THE PHYSICIAN AT ANADDITIONAL CHARGE TO THE PATIENT. BASIC METABOLIC [id number] 21:38:00* Test Item Value Reference Range Comments SODIUM (test code=NA) 140 mmol/L 136-145 POTASSIUM (test code=K) 3.7 mmol/L 3.5-5.1 CHLORIDE (test code=CL) 106.0 mmol/L 98-107 CARBON DIOXIDE (test code=CO2) mmol/L 21-32 ANION GAP (test code=GAP) 10-20 GLUCOSE (test code=GLU) mg/dL 74-106 BLOOD UREA NITROGEN (test code=BUN) mg/dL 7-18 GLOMERULAR FILTRATION RATE (test code=GFR) mL/min >=60 CREATININE (test code=CREAT) mg/dL 0.7-1.3 BUN/CREATININE RATIO (test code=BUN/CREA) 10-20 CALCIUM (test code=CA) mg/dL 8.5-10.1 HEPATIC FUNCTION [id number] 21:38:00* Test Item Value Reference Range Comments TOTAL PROTEIN (test code=PROT) gram/dL 6.4-8.2 ALBUMIN (test code=ALB) g/dL 3.4-5.0 GLOBULIN (test code=GLOB) gram/dL 2.7-4.2 ALBUMIN/GLOBULIN RATIO (test code=A/G) 0.75-1.50 BILIRUBIN TOTAL (test code=BILT) mg/dL 0.0-1.0 BILIRUBIN DIRECT (test code=BILD) mg/dL 0.0-0.20 SGOT/AST (test code=AST) IUnit/L 15-37 SGPT/ALT (test code=ALT) IUnit/L 12-78 ALKALINE PHOSPHATASE TOTAL (test code=ALKP) IUnit/L 45-117 OSMOLALITY [id number] 21:38:00* Test Item Value Reference Range Comments OSMOLALITY SERUM (test code=OSMO) 381.5 mOsm/kg 275-295 [id number] 21:38:00* Test Item Value Reference Range Comments ACETAMINOPHEN (test code=ACET) mcg/mL 10-30 [id number] 21:38:00* Test Item Value Reference Range Comments SALICYLATE (test code=BARI) mg/dL 2.8-20.0 [id number] 21:38:00* Test Item Value Reference Range Comments ALCOHOL (test code=ALC) mg/dL 0-3 BASIC METABOLIC [id number] 21:36:00* Test Item Value Reference Range Comments SODIUM (test code=NA) 140 mmol/L 136-145 POTASSIUM (test code=K) 3.7 mmol/L 3.5-5.1 CHLORIDE (test code=CL) 106.0 mmol/L 98-107 CARBON DIOXIDE (test code=CO2) mmol/L 21-32 ANION GAP (test code=GAP) 10-20 GLUCOSE (test code=GLU) mg/dL 74-106 BLOOD UREA NITROGEN (test code=BUN) mg/dL 7-18 GLOMERULAR FILTRATION RATE (test code=GFR) mL/min >=60 CREATININE (test code=CREAT) mg/dL 0.7-1.3 BUN/CREATININE RATIO (test code=BUN/CREA) 10-20 CALCIUM (test code=CA) mg/dL 8.5-10.1 HEPATIC FUNCTION [id number] 21:36:00* Test Item Value Reference Range Comments TOTAL PROTEIN (test code=PROT) gram/dL 6.4-8.2 ALBUMIN (test code=ALB) g/dL 3.4-5.0 GLOBULIN (test code=GLOB) gram/dL 2.7-4.2 ALBUMIN/GLOBULIN RATIO (test code=A/G) 0.75-1.50 BILIRUBIN TOTAL (test code=BILT) mg/dL 0.0-1.0 BILIRUBIN DIRECT (test code=BILD) mg/dL 0.0-0.20 SGOT/AST (test code=AST) IUnit/L 15-37 SGPT/ALT (test code=ALT) IUnit/L 12-78 ALKALINE PHOSPHATASE TOTAL (test code=ALKP) IUnit/L 45-117 OSMOLALITY [id number] 21:36:00* Test Item Value Reference Range Comments OSMOLALITY SERUM (test code=OSMO) mOsm/kg 275-295 [id number] 21:36:00* Test Item Value Reference Range Comments ACETAMINOPHEN (test code=ACET) mcg/mL 10-30 [id number] 21:36:00* Test Item Value Reference Range Comments SALICYLATE (test code=BARI) mg/dL 2.8-20.0 [id number] 21:36:00* Test Item Value Reference Range Comments ALCOHOL (test code=ALC) mg/dL 0-3 CBC W/O [id number] 21:36:00* Test Item Value Reference Range Comments WHITE BLOOD CELL (test code=WBC) 8.5 K/mm3 4.5-12.5 RED BLOOD CELL (test code=RBC) 3.57 mill/mm3 4.0-5.8 HEMOGLOBIN (test code=HGB) 9.2 gram/dL 13.0-17.5 HEMATOCRIT (test code=HCT) 30.3 % 42.0-52.0 MEAN CELL VOLUME (test code=MCV) 84.9 fL 80-98 MEAN CELL HGB (test code=MCH) 25.8 picogram 27.0-33.0 MEAN CELL HGB CONCETRATION (test code=MCHC) 30.4 gram/dL 33.0-36.0 RED CELL DISTRIBUTION WIDTH (test code=RDW) 14.9 % 11.6-16.2 PLATELET COUNT (test code=PLT) 287 K/mm3 150-450 RESULT VERIFIED BY REPEAT ANALYSIS MEAN PLATELET VOLUME (test code=MPV) 10.3 fL 6.7-11.0 BASIC METABOLIC [id number] 15:04:00* Test Item Value Reference Range Comments SODIUM (test code=NA) 141 mmol/L 136-145 POTASSIUM (test code=K) 3.5 mmol/L 3.5-5.1 CHLORIDE (test code=CL) 106.0 mmol/L 98-107 CARBON DIOXIDE (test code=CO2) 23.0 mmol/L 21-32 ANION GAP (test code=GAP) 15.5 10-20 GLUCOSE (test code=GLU) 131 mg/dL 74-106 BLOOD UREA NITROGEN (test code=BUN) 5 mg/dL 7-18 GLOMERULAR FILTRATION RATE (test code=GFR) > 60 mL/min >=60 Estimated GFR by using Modified MDRD formula.Chronic kidney disease is defined as either kidney damageor GFR <60 mL/min/1.73 m2 for >3 months. CREATININE (test code=CREAT) 0.80 mg/dL 0.7-1.3 BUN/CREATININE RATIO (test code=BUN/CREA) 6.3 10-20 CALCIUM (test code=CA) 9.3 mg/dL 8.5-10.1 [id number] 15:04:00* Test Item Value Reference Range Comments ALCOHOL (test code=ALC) 65 mg/dL 0.0-3.0 INTERPRETIVE DATA NOTE: POSITIVE SCREENING RESULTS SHOULD BE CONSIDERED PRESUMPTIVE.WHEN COLLECTED FOR MEDICAL PURPOSES ONLY. SPECIMEN WILL NOTBE COLLECTED BY CHAIN OF CUSTODY.IF A CONFIRMATION OF POSITIVE RESULTS IS DESIRED, ACONFIRMATION TEST MUST BE REQUESTED BY THE PHYSICIAN AT ANADDITIONAL CHARGE TO THE PATIENT. BASIC METABOLIC [id number] 14:54:00* Test Item Value Reference Range Comments SODIUM (test code=NA) 141 mmol/L 136-145 POTASSIUM (test code=K) 3.5 mmol/L 3.5-5.1 CHLORIDE (test code=CL) 106.0 mmol/L 98-107 CARBON DIOXIDE (test code=CO2) mmol/L 21-32 ANION GAP (test code=GAP) 10-20 GLUCOSE (test code=GLU) mg/dL 74-106 BLOOD UREA NITROGEN (test code=BUN) mg/dL 7-18 GLOMERULAR FILTRATION RATE (test code=GFR) mL/min >=60 CREATININE (test code=CREAT) mg/dL 0.7-1.3 BUN/CREATININE RATIO (test code=BUN/CREA) 10-20 CALCIUM (test code=CA) mg/dL 8.5-10.1 [id number] 14:54:00* Test Item Value Reference Range Comments ALCOHOL (test code=ALC) mg/dL 0-3 [id number] 14:16:00* Test Item Value Reference Range Comments GLUBED (test code=GLUBED) 123 mg/dL 74-106 Performed by certified auxiliary equipment operator at [facility] OSMOLALITY [id number] 13:50:00* Test Item Value Reference Range Comments OSMOLALITY SERUM (test code=OSMO) 382 mOsm/kg 275-295 BASIC METABOLIC [id number] 08:46:00* Test Item Value Reference Range Comments SODIUM (test code=NA) 138 mmol/L 136-145 POTASSIUM (test code=K) 3.4 mmol/L 3.5-5.1 CHLORIDE (test code=CL) 104.0 mmol/L 98-107 CARBON DIOXIDE (test code=CO2) 23.0 mmol/L 21-32 ANION GAP (test code=GAP) 14.4 10-20 GLUCOSE (test code=GLU) 171 mg/dL 74-106 BLOOD UREA NITROGEN (test code=BUN) 7 mg/dL 7-18 GLOMERULAR FILTRATION RATE (test code=GFR) > 60 mL/min >=60 Estimated GFR by using Modified MDRD formula.Chronic kidney disease is defined as either kidney damageor GFR <60 mL/min/1.73 m2 for >3 months. CREATININE (test code=CREAT) 1.00 mg/dL 0.7-1.3 BUN/CREATININE RATIO (test code=BUN/CREA) 7.2 10-20 CALCIUM (test code=CA) 9.6 mg/dL 8.5-10.1 HEPATIC FUNCTION [id number] 08:46:00* Test Item Value Reference Range Comments TOTAL PROTEIN (test code=PROT) 8.9 gram/dL 6.4-8.2 ALBUMIN (test code=ALB) 3.6 g/dL 3.4-5.0 GLOBULIN (test code=GLOB) 5.3 gram/dL 2.7-4.2 ALBUMIN/GLOBULIN RATIO (test code=A/G) 0.7 0.75-1.50 BILIRUBIN TOTAL (test code=BILT) 0.30 mg/dL 0.0-1.0 BILIRUBIN DIRECT (test code=BILD) 0.14 mg/dL 0.0-0.20 SGOT/AST (test code=AST) 36 IUnit/L 15-37 SGPT/ALT (test code=ALT) 36 IUnit/L 12-78 ALKALINE PHOSPHATASE TOTAL (test code=ALKP) 198 IUnit/L 45-117 Note change in reference range due to change in reagent. [id number] 08:46:00* Test Item Value Reference Range Comments ACETAMINOPHEN (test code=ACET) < 10 mcg/mL 10-30 A RANGE OF 10-30 mcg/mL IS A THERAPEUTIC RANGE. TOXIC CONCENTRATIONS: >150 mcg/mL AT 4 HOURS AFTER INGESTION >=50 mcg/mL AT 12 HOURS AFTER INGESTIONPreviously reported result: mcg/mLEdited by: TOBY on 09/16/18:0846 [id number] 08:46:00* Test Item Value Reference Range Comments SALICYLATE (test code=BARI) 3.6 mg/dL 2.8-20.0 [id number] 08:46:00* Test Item Value Reference Range Comments ALCOHOL (test code=ALC) 286 mg/dL 0-3 INTERPRETATION: ETHYL ALCOHOL VALUES 50 MG/DL - NOT INTOXICATED 100 MG/DL - INTOXICATED 350-450 MG/DL- SEVERELY INTOXICATED >=550 MG/DL - FATAL INTOXICATION BASIC METABOLIC [id number] 08:43:00* Test Item Value Reference Range Comments SODIUM (test code=NA) 138 mmol/L 136-145 POTASSIUM (test code=K) 3.4 mmol/L 3.5-5.1 CHLORIDE (test code=CL) 104.0 mmol/L 98-107 CARBON DIOXIDE (test code=CO2) 23.0 mmol/L 21-32 ANION GAP (test code=GAP) 14.4 10-20 GLUCOSE (test code=GLU) 171 mg/dL 74-106 BLOOD UREA NITROGEN (test code=BUN) 7 mg/dL 7-18 GLOMERULAR FILTRATION RATE (test code=GFR) > 60 mL/min >=60 Estimated GFR by using Modified MDRD formula.Chronic kidney disease is defined as either kidney damageor GFR <60 mL/min/1.73 m2 for >3 months. CREATININE (test code=CREAT) 1.00 mg/dL 0.7-1.3 BUN/CREATININE RATIO (test code=BUN/CREA) 7.2 10-20 CALCIUM (test code=CA) 9.6 mg/dL 8.5-10.1 HEPATIC FUNCTION [id number] 08:43:00* Test Item Value Reference Range Comments TOTAL PROTEIN (test code=PROT) 8.9 gram/dL 6.4-8.2 ALBUMIN (test code=ALB) 3.6 g/dL 3.4-5.0 GLOBULIN (test code=GLOB) 5.3 gram/dL 2.7-4.2 ALBUMIN/GLOBULIN RATIO (test code=A/G) 0.7 0.75-1.50 BILIRUBIN TOTAL (test code=BILT) 0.30 mg/dL 0.0-1.0 BILIRUBIN DIRECT (test code=BILD) 0.14 mg/dL 0.0-0.20 SGOT/AST (test code=AST) 36 IUnit/L 15-37 SGPT/ALT (test code=ALT) 36 IUnit/L 12-78 ALKALINE PHOSPHATASE TOTAL (test code=ALKP) 198 IUnit/L 45-117 Note change in reference range due to change in reagent. [id number] 08:43:00* Test Item Value Reference Range Comments ACETAMINOPHEN (test code=ACET) 286 mcg/mL 10-30 Results called to [id number] by TOBY 09/16/18 0843Critical results verified and read back by Nurse? YA RANGE OF 10-30 mcg/mL IS A THERAPEUTIC RANGE. TOXIC CONCENTRATIONS: >150 mcg/mL AT 4 HOURS AFTER INGESTION >=50 mcg/mL AT 12 HOURS AFTER INGESTION [id number] 08:43:00* Test Item Value Reference Range Comments SALICYLATE (test code=BARI) 3.6 mg/dL 2.8-20.0 [id number] 08:43:00* Test Item Value Reference Range Comments ALCOHOL (test code=ALC) mg/dL 0-3 BASIC METABOLIC [id number] 08:18:00* Test Item Value Reference Range Comments SODIUM (test code=NA) 138 mmol/L 136-145 POTASSIUM (test code=K) 3.4 mmol/L 3.5-5.1 CHLORIDE (test code=CL) 104.0 mmol/L 98-107 CARBON DIOXIDE (test code=CO2) mmol/L 21-32 ANION GAP (test code=GAP) 10-20 GLUCOSE (test code=GLU) mg/dL 74-106 BLOOD UREA NITROGEN (test code=BUN) mg/dL 7-18 GLOMERULAR FILTRATION RATE (test code=GFR) mL/min >=60 CREATININE (test code=CREAT) mg/dL 0.7-1.3 BUN/CREATININE RATIO (test code=BUN/CREA) 10-20 CALCIUM (test code=CA) mg/dL 8.5-10.1 HEPATIC FUNCTION [id number] 08:18:00* Test Item Value Reference Range Comments TOTAL PROTEIN (test code=PROT) gram/dL 6.4-8.2 ALBUMIN (test code=ALB) g/dL 3.4-5.0 GLOBULIN (test code=GLOB) gram/dL 2.7-4.2 ALBUMIN/GLOBULIN RATIO (test code=A/G) 0.75-1.50 BILIRUBIN TOTAL (test code=BILT) mg/dL 0.0-1.0 BILIRUBIN DIRECT (test code=BILD) mg/dL 0.0-0.20 SGOT/AST (test code=AST) IUnit/L 15-37 SGPT/ALT (test code=ALT) IUnit/L 12-78 ALKALINE PHOSPHATASE TOTAL (test code=ALKP) IUnit/L 45-117 [id number] 08:18:00* Test Item Value Reference Range Comments ACETAMINOPHEN (test code=ACET) mcg/mL 10-30 [id number] 08:18:00* Test Item Value Reference Range Comments SALICYLATE (test code=BARI) mg/dL 2.8-20.0 [id number] 08:18:00* Test Item Value Reference Range Comments ALCOHOL (test code=ALC) mg/dL 0-3 CBC W/AUTO [id number] 08:06:00* Test Item Value Reference Range Comments WHITE BLOOD CELL (test code=WBC) 11.3 K/mm3 4.5-12.5 RED BLOOD CELL (test code=RBC) 3.53 mill/mm3 4.0-5.8 HEMOGLOBIN (test code=HGB) 9.2 gram/dL 13.0-17.5 HEMATOCRIT (test code=HCT) 30.0 % 42.0-52.0 MEAN CELL VOLUME (test code=MCV) 85.0 fL 80-98 MEAN CELL HGB (test code=MCH) 26.1 picogram 27.0-33.0 MEAN CELL HGB CONCETRATION (test code=MCHC) 30.7 gram/dL 33.0-36.0 RED CELL DISTRIBUTION WIDTH (test code=RDW) 14.6 % 11.6-16.2 RED CELL DISTRIBUTION WIDTH SD (test code=RDW-SD) 45.3 fL 37.0-51.0 PLATELET COUNT (test code=PLT) 379 K/mm3 150-450 MEAN PLATELET VOLUME (test code=MPV) 8.5 fL 6.7-11.0 NEUTROPHIL % (test code=NT%) 70.5 % 39.0-69.0 IMMATURE GRANULOCYTE % (test code=IG%) 2.0 % 0.0-5.0 LYMPHOCYTE % (test code=LY%) 16.3 % 25.0-55.0 MONOCYTE % (test code=MO%) 9.1 % 0.0-10.0 EOSINOPHIL % (test code=EO%) 1.7 % 0.0-5.0 BASOPHIL % (test code=BA%) 0.4 % 0.0-1.0 NUCLEATED RBC % (test code=NRBC%) 0.4 % 0-0 NEUTROPHIL # (test code=NT#) 7.99 K/mm3 1.8-7.7 IMMATURE GRANULOCYTE # (test code=IG#) 0.23 x10 3/uL 0-0.03 LYMPHOCYTE # (test code=LY#) 1.85 K/mm3 1.0-5.0 MONOCYTE # (test code=MO#) 1.03 K/mm3 0-0.8 EOSINOPHIL # (test code=EO#) 0.19 K/mm3 0.0-0.5 BASOPHIL # (test code=BA#) 0.05 K/mm3 0.0-0.2 NUCLEATED RBC # (test code=NRBC#) 0.04 K/mm3 0.0-0.1 - CT HEAD/BRAIN W/O [id number] 07:49:00 Name: LESVIA RUSSO [facility] : 1980 Age/S: 38 / M [address] [facility] Unit #: [id number] Loc: [place] [address] Phys: Cricket Galaviz MD Acct: [id number] Dis Date: Status: REG ER PHONE #: [phone] Exam Date: 09/16/2018 0735 FAX #: [phone] Reason: Altered Mental Status EXAMS: CPT CODE: [id number] CT HEAD/BRAIN W/O CONT 87243 HISTORY: Altered Mental Status, seizure TECHNIQUE: Noncontrast 2.[address] of the head. Examination acquired within 24 hours of arrival. Automated exposure control for dose reduction; DLP: 782 mGy-cm. COMPARISON: Previous day FINDINGS: No acute hemorrhage. No CT evidence of acute infarct. No intracranial mass or mass effect. No hydrocephalus. No extra-axial fluid collection. Visualized paranasal sinuses are clear. Mastoid air cells and middle ear cavities are clear. Orbital contents are unremarkable. Calvarium and skull base are intact. Frontal scalp and left periorbital soft tissue swelling. Small right frontal parietal scalp hematoma. IMPRESSION: No acute intracranial process. No significant interval change. El ectronically Signed by Nury Rogers D.O. on 09/16/2018 at 0749 Reported and signed by: Nury Rogers D.O. CC: Cricket Galaviz MD Technologist:RT Tiffany(R),CT CTDI: DLP: Trnscb Date/Time: 09/16/2018 (0749) [id number] Orig Print D/T: S: 09/16/2018 (0753) PAGE 1 Signed Report CBC W/AUTO [id number] 20:38:00* Test Item Value Reference Range Comments WHITE BLOOD CELL (test code=WBC) 7.5 K/mm3 4.5-12.5 RED BLOOD CELL (test code=RBC) 3.15 mill/mm3 4.0-5.8 HEMOGLOBIN (test code=HGB) 8.4 gram/dL 13.0-17.5 HEMATOCRIT (test code=HCT) 26.9 % 42.0-52.0 MEAN CELL VOLUME (test code=MCV) 85.4 fL 80-98 MEAN CELL HGB (test code=MCH) 26.7 picogram 27.0-33.0 MEAN CELL HGB CONCETRATION (test code=MCHC) 31.2 gram/dL 33.0-36.0 RED CELL DISTRIBUTION WIDTH (test code=RDW) 14.8 % 11.6-16.2 RED CELL DISTRIBUTION WIDTH SD (test code=RDW-SD) 45.4 fL 37.0-51.0 PLATELET COUNT (test code=PLT) 358 K/mm3 150-450 MEAN PLATELET VOLUME (test code=MPV) 9.0 fL 6.7-11.0 NEUTROPHIL % (test code=NT%) 59.7 % 39.0-69.0 IMMATURE GRANULOCYTE % (test code=IG%) 0.9 % 0.0-5.0 LYMPHOCYTE % (test code=LY%) 24.7 % 25.0-55.0 MONOCYTE % (test code=MO%) 9.9 % 0.0-10.0 EOSINOPHIL % (test code=EO%) 4.4 % 0.0-5.0 BASOPHIL % (test code=BA%) 0.4 % 0.0-1.0 NUCLEATED RBC % (test code=NRBC%) 0.3 % 0-0 NEUTROPHIL # (test code=NT#) 4.47 K/mm3 1.8-7.7 IMMATURE GRANULOCYTE # (test code=IG#) 0.07 x10 3/uL 0-0.03 LYMPHOCYTE # (test code=LY#) 1.85 K/mm3 1.0-5.0 MONOCYTE # (test code=MO#) 0.74 K/mm3 0-0.8 EOSINOPHIL # (test code=EO#) 0.33 K/mm3 0.0-0.5 BASOPHIL # (test code=BA#) 0.03 K/mm3 0.0-0.2 NUCLEATED RBC # (test code=NRBC#) 0.02 K/mm3 0.0-0.1 MANUAL DIFF REQUIRED (test code=MDIFF) NO, ONLY SCAN NEEDED DIFFERENTIAL [id number] 20:38:00* Test Item Value Reference Range Comments STAIN ACCEPTABILITY (test code=STN ACCEPTABLE) STAIN ACCEPTABLE ANISOCYTOSIS (test code=ANISO) 1+ MICROCYTOSIS (test code=MICR) 1+ PLATELET ESTIMATE (test code=PLTEST) ADEQUATE PLATELET MORPHOLOGY (test code=PLTMORPH) NORMAL URINALYSIS [id number] 20:15:00* Test Item Value Reference Range Comments UA COLOR (test code=COLU) COLORLESS YELLOW UA APPEARANCE (test code=APPU) CLEAR CLEAR UA GLUCOSE DIPSTICK (test code=DGLUU) NEGATIVE mg/dL NEGATIVE UA BILIRUBIN DIPSTICK (test code=BILU) NEGATIVE mg/dL NEGATIVE UA KETONE DIPSTICK (test code=KETU) NEGATIVE mg/dL NEGATIVE UA SPECIFIC GRAVITY (test code=SGU) 1.004 1.001-1.035 UA BLOOD DIPSTICK (test code=KILO) Negative mg/dL NEGATIVE UA PH DIPSTICK (test code=PRICILA) 5.5 5.0-8.0 UA PROTEIN DIPSTICK (test code=PROU) 10 (Trace) mg/dL NEGATIVE UA UROBILINIOGEN DIPSTICK (test code=URO) Normal mg/dL NEGATIVE UA NITRITE DIPSTICK (test code=ELIOT) NEGATIVE NEGATIVE UA LEUKOCYTE ESTERASE W REFLEX (test code=LEUUR) NEGATIVE Teo/uL NEGATIVE UA WBC (test code=WBCU) 0-5 per HPF 0-5 UA RBC (test code=RBCU) 0-3 #/HPF 0-5 UA EPITHELIAL CELLS (test code=EPIU) FEW per HPF FEW UA BACTERIA (test code=BACU) NONE SEEN #/HPF NONE UA MUCUS (test code=MUCU) FEW #/LPF FEW Urine Source? Clean CatchDRUGS OF ABUSE SCREEN [id number] 20:15:00* Test Item Value Reference Range Comments URN COCAINE (test code=COCAURN) NEGATIVE <300 ng/mL URN CANNABINOIDS (test code=CANNABURN) NEGATIVE <50 ng/mL URN AMPHETAMINE (test code=AMPHETURN) NEGATIVE <1000 ng/mL URN BARBITURATE (test code=BARBITURN) NEGATIVE <200 ng/mL URN BENZODIAZEPINE (test code=BENZOURN) NEGATIVE <200 ng/mL URN OPIATES (test code=OPIATURN) POSITIVE <300 ng/mL This test provides only a preliminary test result. A morespecific alternate chemical method must be used in order toobtain a confirmed analytical result. Gas chromatography/mass spectrometry (GC/MS) is thepreferred confirmatory method. Other chemical confirmationmethods are available. Clinical consideration and professional judgment should be applied to any drug of abusetest result, particularly when preliminary positive resultsare used.Unconfirmed screening results must not be used fornon-medical purposes (e.g., employment testing, legaltesting). URN PHENCYCLIDINE (PCP) (test code=PHENCURN) NEGATIVE <25 ng/mL URN METHADONE (test code=METHAURN) NEGATIVE <300 ng/mL Urine Source? Clean Catch- CT HEAD/BRAIN W/O [id number] 20:11:00 Name: LESVIA RUSSO [facility] : 1980 Age/S: 38 / M [address] Unit #: [id number] Loc: [place] [address] Phys: Jayjay Zaman DO Acct: [id number] Dis Date: Status: REG ER PHONE #: Exam Date: 09/15/20181947 FAX #: Reason: Altered Mental Status EXAMS: CPT CODE: [id number] CT HEAD/BRAIN W/O CONT 76762 REASON FOR EXAM: Altered Mental Status EXAM ORDER DATE: 09/15/2018 6:37 PM Ordering MLeonardo: Jayjay Zaman DO PROCEDURE: - CT HEAD/BRAIN W /O CONT COMPARISON: 07/30/2018 FINDINGS: CT images of the brain were obtained without IV contrast. Dose modulation, iterative reconstruction, and/or weight based adjustment of the MA/KV was utilized t o reduce the radiation dose to as low as reasonably achievable. The brain parenchyma is within normal limits. The echols-white matter d elineation is unremarkable. The ventricles, cisterns, and sulci are unrema rkable. There is no evidence of hemorrhage, mass, mass effect. There is n o evidence of acute or old infarct. The calvarium is intact. Exam is mcneil ited due to motion artifacts. IMPRESSION: Unremarkable brain. at 2010 Reported and signed by: Gold Duong M.D. CC: Jayjay Zaman DO Technologist:Ruthie Castellanos cia RT(R); JACKIE Antoine CTDI: DLP: Trnscb Date/Time: 09/15/2018 (2010 ) t.VTL Orig Print D/T: S: 09/15/2018 (2013) PAG E 1 Signed Report URINALYSIS [id number] 19:56:00* Test Item Value Reference Range Comments UA COLOR (test code=COLU) COLORLESS YELLOW UA APPEARANCE (test code=APPU) CLEAR CLEAR UA GLUCOSE DIPSTICK (test code=DGLUU) NEGATIVE mg/dL NEGATIVE UA BILIRUBIN DIPSTICK (test code=BILU) NEGATIVE mg/dL NEGATIVE UA KETONE DIPSTICK (test code=KETU) NEGATIVE mg/dL NEGATIVE UA SPECIFIC GRAVITY (test code=SGU) 1.004 1.001-1.035 UA BLOOD DIPSTICK (test code=KILO) Negative mg/dL NEGATIVE UA PH DIPSTICK (test code=PRICILA) 5.5 5.0-8.0 UA PROTEIN DIPSTICK (test code=PROU) 10 (Trace) mg/dL NEGATIVE UA UROBILINIOGEN DIPSTICK (test code=URO) Normal mg/dL NEGATIVE UA NITRITE DIPSTICK (test code=ELIOT) NEGATIVE NEGATIVE UA LEUKOCYTE ESTERASE W REFLEX (test code=LEUUR) NEGATIVE Teo/uL NEGATIVE UA WBC (test code=WBCU) 0-5 per HPF 0-5 UA RBC (test code=RBCU) 0-3 #/HPF 0-5 UA EPITHELIAL CELLS (test code=EPIU) FEW per HPF FEW UA BACTERIA (test code=BACU) NONE SEEN #/HPF NONE UA MUCUS (test code=MUCU) FEW #/LPF FEW Urine Source? Clean CatchDRUGS OF ABUSE SCREEN [id number] 19:56:00* Test Item Value Reference Range Comments URN COCAINE (test code=COCAURN) <300 ng/mL URN CANNABINOIDS (test code=CANNABURN) <50 ng/mL URN AMPHETAMINE (test code=AMPHETURN) <1000 ng/mL URN BARBITURATE (test code=BARBITURN) <200 ng/mL URN BENZODIAZEPINE (test code=BENZOURN) <200 ng/mL URN OPIATES (test code=OPIATURN) <300 ng/mL URN PHENCYCLIDINE (PCP) (test code=PHENCURN) <25 ng/mL URN METHADONE (test code=METHAURN) <300 ng/mL Urine Source? Clean Catch- XR CHEST 1 [id number] 19:30:00 FAX: Jayjay Zaman DO [place]: B St: REG Name: LESVIA MCCLELLAN [facility] : [birth year] Age/S: 38/M [address] Unit #: [id number] Loc: [place] [address] Phys: Jayjay Zaman DO Acct: [id number] Dis Date: Status: REG ER PHONE #: [phone] Exam Date: 09/15/20181923 FAX #: [phone] Reason: Altered Mental Status EXAMS: CPT CODE: [id number] XR CHEST 1 V 94738 REASON FOR EXAM: Altered M ental Status EXAM ORDER DATE: 09/15/2018 6:37 PM Jeremy steward M.D.: Jayjay Zaman DO PROCEDURE: - XR CHEST 1 V COMPARISON: 07/31/2018 FINDINGS: Portable AP frontal view of jonathan moralez chest obtained at 7:24 PM shows clear lungs without evidence of consoli dation. There is no evidence of effusion. The heart size is within normal limits. Pulmonary vasculatures are minimally congested. I MPRESSION: Hypoaerated lungs Electronically Signed by Mable Denny 09/15/2018 at 1930 Reported and signed by: Bill Barger CC: Jayjay Zaman DO Technologist: Cristal Gilliam(R) Trnscrd Date/Time/By: 09/15/2018 (1929) : By: GauravL Orig Print D/T: S: 0 09/15/2018 (1933) PAGE 1 Signed [facility] BASIC METABOLIC [id number] 19:20:00* Test Item Value Reference Range Comments SODIUM (test code=NA) 137 mmol/L 136-145 POTASSIUM (test code=K) 4.7 mmol/L 3.5-5.1 CHLORIDE (test code=CL) 106.0 mmol/L 98-107 CARBON DIOXIDE (test code=CO2) 22.0 mmol/L 21-32 ANION GAP (test code=GAP) 13.7 10-20 GLUCOSE (test code=GLU) 141 mg/dL 74-106 BLOOD UREA NITROGEN (test code=BUN) 5 mg/dL 7-18 GLOMERULAR FILTRATION RATE (test code=GFR) > 60 mL/min >=60 Estimated GFR by using Modified MDRD formula.Chronic kidney disease is defined as either kidney damageor GFR <60 mL/min/1.73 m2 for >3 months. CREATININE (test code=CREAT) 0.70 mg/dL 0.7-1.3 BUN/CREATININE RATIO (test code=BUN/CREA) 7.2 10-20 CALCIUM (test code=CA) 8.4 mg/dL 8.5-10.1 HEPATIC FUNCTION [id number] 19:20:00* Test Item Value Reference Range Comments TOTAL PROTEIN (test code=PROT) 7.5 gram/dL 6.4-8.2 ALBUMIN (test code=ALB) 3.3 g/dL 3.4-5.0 GLOBULIN (test code=GLOB) 4.2 gram/dL 2.7-4.2 ALBUMIN/GLOBULIN RATIO (test code=A/G) 0.8 0.75-1.50 BILIRUBIN TOTAL (test code=BILT) 0.30 mg/dL 0.0-1.0 BILIRUBIN DIRECT (test code=BILD) 0.08 mg/dL 0.0-0.20 SGOT/AST (test code=AST) 40 IUnit/L 15-37 SGPT/ALT (test code=ALT) 32 IUnit/L 12-78 ALKALINE PHOSPHATASE TOTAL (test code=ALKP) 174 IUnit/L 45-117 Note change in reference range due to change in reagent. [id number] 19:20:00* Test Item Value Reference Range Comments TROPONIN-I (test code=TROPI) <0.015 ng/mL 0-0.045 [id number] 19:20:00* Test Item Value Reference Range Comments ACETAMINOPHEN (test code=ACET) < 10 mcg/mL 10-30 A RANGE OF 10-30 mcg/mL IS A THERAPEUTIC RANGE. TOXIC CONCENTRATIONS: >150 mcg/mL AT 4 HOURS AFTER INGESTION >=50 mcg/mL AT 12 HOURS AFTER INGESTION [id number] 19:20:00* Test Item Value Reference Range Comments SALICYLATE (test code=BARI) < 1.7 mg/dL 2.8-20.0 [id number] 19:20:00* Test Item Value Reference Range Comments ALCOHOL (test code=ALC) 293 mg/dL 0.0-3.0 INTERPRETIVE DATA NOTE: POSITIVE SCREENING RESULTS SHOULD BE CONSIDERED PRESUMPTIVE.WHEN COLLECTED FOR MEDICAL PURPOSES ONLY. SPECIMEN WILL NOTBE COLLECTED BY CHAIN OF CUSTODY.IF A CONFIRMATION OF POSITIVE RESULTS IS DESIRED, ACONFIRMATION TEST MUST BE REQUESTED BY THE PHYSICIAN AT ANADDITIONAL CHARGE TO THE PATIENT. [id number] 19:11:00* Test Item Value Reference Range Comments AMMONIA (test code=AMM) 32 umol/L 11-32 BASIC METABOLIC [id number] 19:06:00* Test Item Value Reference Range Comments SODIUM (test code=NA) 137 mmol/L 136-145 POTASSIUM (test code=K) 4.7 mmol/L 3.5-5.1 CHLORIDE (test code=CL) 106.0 mmol/L 98-107 CARBON DIOXIDE (test code=CO2) mmol/L 21-32 ANION GAP (test code=GAP) 10-20 GLUCOSE (test code=GLU) mg/dL 74-106 BLOOD UREA NITROGEN (test code=BUN) mg/dL 7-18 GLOMERULAR FILTRATION RATE (test code=GFR) mL/min >=60 CREATININE (test code=CREAT) mg/dL 0.7-1.3 BUN/CREATININE RATIO (test code=BUN/CREA) 10-20 CALCIUM (test code=CA) mg/dL 8.5-10.1 HEPATIC FUNCTION [id number] 19:06:00* Test Item Value Reference Range Comments TOTAL PROTEIN (test code=PROT) gram/dL 6.4-8.2 ALBUMIN (test code=ALB) g/dL 3.4-5.0 GLOBULIN (test code=GLOB) gram/dL 2.7-4.2 ALBUMIN/GLOBULIN RATIO (test code=A/G) 0.75-1.50 BILIRUBIN TOTAL (test code=BILT) mg/dL 0.0-1.0 BILIRUBIN DIRECT (test code=BILD) mg/dL 0.0-0.20 SGOT/AST (test code=AST) IUnit/L 15-37 SGPT/ALT (test code=ALT) IUnit/L 12-78 ALKALINE PHOSPHATASE TOTAL (test code=ALKP) IUnit/L 45-117 [id number] 19:06:00* Test Item Value Reference Range Comments TROPONIN-I (test code=TROPI) ng/mL 0-0.045 [id number] 19:06:00* Test Item Value Reference Range Comments ACETAMINOPHEN (test code=ACET) mcg/mL 10-30 [id number] 19:06:00* Test Item Value Reference Range Comments SALICYLATE (test code=BARI) mg/dL 2.8-20.0 [id number] 19:06:00* Test Item Value Reference Range Comments ALCOHOL (test code=ALC) mg/dL 0-3 CBC W/AUTO [id number] 18:54:00* Test Item Value Reference Range Comments WHITE BLOOD CELL (test code=WBC) 7.5 K/mm3 4.5-12.5 RED BLOOD CELL (test code=RBC) 3.15 mill/mm3 4.0-5.8 HEMOGLOBIN (test code=HGB) 8.4 gram/dL 13.0-17.5 HEMATOCRIT (test code=HCT) 26.9 % 42.0-52.0 MEAN CELL VOLUME (test code=MCV) 85.4 fL 80-98 MEAN CELL HGB (test code=MCH) 26.7 picogram 27.0-33.0 MEAN CELL HGB CONCETRATION (test code=MCHC) 31.2 gram/dL 33.0-36.0 RED CELL DISTRIBUTION WIDTH (test code=RDW) 14.8 % 11.6-16.2 RED CELL DISTRIBUTION WIDTH SD (test code=RDW-SD) 45.4 fL 37.0-51.0 PLATELET COUNT (test code=PLT) 358 K/mm3 150-450 MEAN PLATELET VOLUME (test code=MPV) 9.0 fL 6.7-11.0 NEUTROPHIL % (test code=NT%) 59.7 % 39.0-69.0 IMMATURE GRANULOCYTE % (test code=IG%) 0.9 % 0.0-5.0 LYMPHOCYTE % (test code=LY%) 24.7 % 25.0-55.0 MONOCYTE % (test code=MO%) 9.9 % 0.0-10.0 EOSINOPHIL % (test code=EO%) 4.4 % 0.0-5.0 BASOPHIL % (test code=BA%) 0.4 % 0.0-1.0 NUCLEATED RBC % (test code=NRBC%) 0.3 % 0-0 NEUTROPHIL # (test code=NT#) 4.47 K/mm3 1.8-7.7 IMMATURE GRANULOCYTE # (test code=IG#) 0.07 x10 3/uL 0-0.03 LYMPHOCYTE # (test code=LY#) 1.85 K/mm3 1.0-5.0 MONOCYTE # (test code=MO#) 0.74 K/mm3 0-0.8 EOSINOPHIL # (test code=EO#) 0.33 K/mm3 0.0-0.5 BASOPHIL # (test code=BA#) 0.03 K/mm3 0.0-0.2 NUCLEATED RBC # (test code=NRBC#) 0.02 K/mm3 0.0-0.1 MANUAL DIFF REQUIRED (test code=MDIFF) NO, ONLY SCAN NEEDED DIFFERENTIAL [id number] 18:54:00* Test Item Value Reference Range Comments STAIN ACCEPTABILITY (test code=STN ACCEPTABLE) CABOT RINGS (test code=CAB) MORPHOLOGY COMMENT (test code=MOC) PLATELET ESTIMATE (test code=PLTEST) PLATELET MORPHOLOGY (test code=PLTMORPH) CBC W/AUTO [id number] 18:54:00* Test Item Value Reference Range Comments WHITE BLOOD CELL (test code=WBC) 7.5 K/mm3 4.5-12.5 RED BLOOD CELL (test code=RBC) 3.15 mill/mm3 4.0-5.8 HEMOGLOBIN (test code=HGB) 8.4 gram/dL 13.0-17.5 HEMATOCRIT (test code=HCT) 26.9 % 42.0-52.0 MEAN CELL VOLUME (test code=MCV) 85.4 fL 80-98 MEAN CELL HGB (test code=MCH) 26.7 picogram 27.0-33.0 MEAN CELL HGB CONCETRATION (test code=MCHC) 31.2 gram/dL 33.0-36.0 RED CELL DISTRIBUTION WIDTH (test code=RDW) 14.8 % 11.6-16.2 RED CELL DISTRIBUTION WIDTH SD (test code=RDW-SD) 45.4 fL 37.0-51.0 PLATELET COUNT (test code=PLT) 358 K/mm3 150-450 MEAN PLATELET VOLUME (test code=MPV) 9.0 fL 6.7-11.0 NEUTROPHIL % (test code=NT%) 59.7 % 39.0-69.0 IMMATURE GRANULOCYTE % (test code=IG%) 0.9 % 0.0-5.0 LYMPHOCYTE % (test code=LY%) 24.7 % 25.0-55.0 MONOCYTE % (test code=MO%) 9.9 % 0.0-10.0 EOSINOPHIL % (test code=EO%) 4.4 % 0.0-5.0 BASOPHIL % (test code=BA%) 0.4 % 0.0-1.0 NUCLEATED RBC % (test code=NRBC%) 0.3 % 0-0 NEUTROPHIL # (test code=NT#) 4.47 K/mm3 1.8-7.7 IMMATURE GRANULOCYTE # (test code=IG#) 0.07 x10 3/uL 0-0.03 LYMPHOCYTE # (test code=LY#) 1.85 K/mm3 1.0-5.0 MONOCYTE # (test code=MO#) 0.74 K/mm3 0-0.8 EOSINOPHIL # (test code=EO#) 0.33 K/mm3 0.0-0.5 BASOPHIL # (test code=BA#) 0.03 K/mm3 0.0-0.2 NUCLEATED RBC # (test code=NRBC#) 0.02 K/mm3 0.0-0.1 MANUAL DIFF REQUIRED (test code=MDIFF) NO, ONLY SCAN NEEDED DIFFERENTIAL [id number] 18:54:00* Test Item Value Reference Range Comments STAIN ACCEPTABILITY (test code=STN ACCEPTABLE) MORPHOLOGY COMMENT (test code=MOC) PLATELET ESTIMATE (test code=PLTEST) PLATELET MORPHOLOGY (test code=PLTMORPH) CBC W/AUTO [id number] 18:54:00* Test Item Value Reference Range Comments WHITE BLOOD CELL (test code=WBC) 7.5 K/mm3 4.5-12.5 RED BLOOD CELL (test code=RBC) 3.15 mill/mm3 4.0-5.8 HEMOGLOBIN (test code=HGB) 8.4 gram/dL 13.0-17.5 HEMATOCRIT (test code=HCT) 26.9 % 42.0-52.0 MEAN CELL VOLUME (test code=MCV) 85.4 fL 80-98 MEAN CELL HGB (test code=MCH) 26.7 picogram 27.0-33.0 MEAN CELL HGB CONCETRATION (test code=MCHC) 31.2 gram/dL 33.0-36.0 RED CELL DISTRIBUTION WIDTH (test code=RDW) 14.8 % 11.6-16.2 RED CELL DISTRIBUTION WIDTH SD (test code=RDW-SD) 45.4 fL 37.0-51.0 PLATELET COUNT (test code=PLT) 358 K/mm3 150-450 MEAN PLATELET VOLUME (test code=MPV) 9.0 fL 6.7-11.0 NEUTROPHIL % (test code=NT%) 59.7 % 39.0-69.0 IMMATURE GRANULOCYTE % (test code=IG%) 0.9 % 0.0-5.0 LYMPHOCYTE % (test code=LY%) 24.7 % 25.0-55.0 MONOCYTE % (test code=MO%) 9.9 % 0.0-10.0 EOSINOPHIL % (test code=EO%) 4.4 % 0.0-5.0 BASOPHIL % (test code=BA%) 0.4 % 0.0-1.0 NUCLEATED RBC % (test code=NRBC%) 0.3 % 0-0 NEUTROPHIL # (test code=NT#) 4.47 K/mm3 1.8-7.7 IMMATURE GRANULOCYTE # (test code=IG#) 0.07 x10 3/uL 0-0.03 LYMPHOCYTE # (test code=LY#) 1.85 K/mm3 1.0-5.0 MONOCYTE # (test code=MO#) 0.74 K/mm3 0-0.8 EOSINOPHIL # (test code=EO#) 0.33 K/mm3 0.0-0.5 BASOPHIL # (test code=BA#) 0.03 K/mm3 0.0-0.2 NUCLEATED RBC # (test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 2018, 0446 hours HISTORY: Pain. Left ankle with infection. TECHNIQUE: Frontal, oblique and lateral radiograph of the left ankle are submitted COMPARISON: 08/11/2018. FINDINGS: . If indicated, follow-up radiograph or MRI can be obtained for complete assessment. Fracture of the distal left fibula is seen p osterior stabilization with metallic plate and screws. Increased lucency along the medial cortex of the distal fibula, irregular calcification ivan g the posterior aspect of the distal fibula and nonhealing of the fracture may be related to infection as per history. A horizontal screw ext ending from the distal fibular lateral the distal tibia is fractured. A s mall plate along the medial aspect of the medial malleolus, new since prio r study There is no new fracture. There is no dislocation. There is soft tissue swelling. A small plantar calcaneal spur is present IMPRESSION: 1. Distal left fibular fracture with cortical evie cency and irregular bone formation with fracture line evident, may be du e to infection. Please correlate. 2. A horizontal screw extend ing from the distal fibula to distal tibia is fractured in the midportio n. A new small plantar projected medial to the medial malleolus. The m etallic plate and screws stabilizing the distal fibula are stable. 3. Soft tissue swelling. SL:[[id number]-H] at 1758 Reported and signed by: Josse Chowdhury M.D. PAGE 1 Signed Report (CONTINUED) FAX: Komal Mas [phone] [place]: St: REG Name: LESVIA RUSSO [facility] : 1980 Age/S: 38/M [address] [place] [address] Unit #: [id number] Loc: [place] [address] Phys: Komal Wood Acct: [id number] Dis Date: Status: REG ER PHONE #: [phone] Exam Date: 09/05/2018 0502 FAX #: [phone] Reason: pain EXAMS: CPT CODE: [id number] XR ANKLE 3 + V LT [address]242 <Continued> CC: Komal KAT Technologist: RT [place](R) Trnscrd Date/Time/By: 09/05/2018 (9545) : By: [email or web address] Orig Print D/T: S: 09/05/2018 (9787) PAGE 2 Signed Report GLUBED 2018-09-05 05:25:00* Test Item Value Reference Range Comments GLUBED (test code=GLUBED) 97 MG/DL 70-110 Performed by certified auxiliary equipment operator at [facility] [id number] 17:23:00* Test Item Value Reference Range Comments GLUBED (test code=GLUBED) 167 MG/DL 70-110 Performed by certified auxiliary equipment operator at [facility] [id number] 12:10:00* Test Item Value Reference Range Comments GLUBED (test code=GLUBED) 119 MG/DL 70-110 Performed by certified auxiliary equipment operator at [facility] CBC W/AUTO [id number] 09:03:00* Test Item Value Reference Range Comments WHITE BLOOD CELL (test code=WBC) 7.29 x10 3/uL 4.5-11.0 RED BLOOD CELL (test code=RBC) 2.69 x10 6/uL 4.00-5.60 HEMOGLOBIN (test code=HGB) 8.1 g/dL 12.5-16.9 HEMATOCRIT (test code=HCT) 24.9 % 37.5-50.7 MEAN CELL VOLUME (test code=MCV) 92.6 fL 81.0-99.0 MEAN CELL HGB (test code=MCH) 30.1 pg 27.0-33.0 MEAN CELL HGB CONCETRATION (test code=MCHC) 32.5 g/dL 33.0-37.0 RED CELL DISTRIBUTION WIDTH CV (test code=RDW) 13.9 % 11.5-14.5 RED CELL DISTRIBUTION WIDTH SD (test code=RDW-SD) 46.8 fL 37.0-54.0 PLATELET COUNT (test code=PLT) 184 x10 3/uL 150-400 MEAN PLATELET VOLUME (test code=MPV) 9.3 fL 7.0-9.0 NEUTROPHIL % (test code=NT%) 67.2 % 56.0-77.0 IMMATURE GRANULOCYTE % (test code=IG%) 0.5 % 0.0-2.0 LYMPHOCYTE % (test code=LY%) 21.1 % 14.0-32.0 MONOCYTE % (test code=MO%) 9.9 % 4.8-9.0 EOSINOPHIL % (test code=EO%) 1.0 % 0.3-3.7 BASOPHIL % (test code=BA%) 0.3 % 0.0-2.0 NUCLEATED RBC % (test code=NRBC%) 0.0 % 0-0 NEUTROPHIL # (test code=NT#) 4.90 x10 3/uL 2.0-7.6 IMMATURE GRANULOCYTE # (test code=IG#) 0.04 x10 3/uL 0.00-0.03 LYMPHOCYTE # (test code=LY#) 1.54 x10 3/uL 1.0-3.8 MONOCYTE # (test code=MO#) 0.72 x10 3/uL 0.1-0.8 EOSINOPHIL # (test code=EO#) 0.07 x10 3/uL 0.0-0.2 BASOPHIL # (test code=BA#) 0.02 x10 3/uL 0.0-0.2 NUCLEATED RBC # (test code=NRBC#) 0.00 x10 3/uL 0.0-0.1 MANUAL DIFF REQUIRED (test code=MDIFF) NO BASIC METABOLIC [id number] 08:48:00* Test Item Value Reference Range Comments SODIUM (test code=NA) 131 mEq/L 134-147 POTASSIUM (test code=K) 4.1 mEq/L 3.4-5.0 CHLORIDE (test code=CL) 100 mEq/L 100-108 CARBON DIOXIDE (test code=CO2) 22 mEq/L 21-33 ANION GAP (test code=GAP) 13 0-20 GLUCOSE (test code=GLU) 117 mg/dL 70-110 BLOOD UREA NITROGEN (test code=BUN) 9 mg/dL 7-18 GLOMERULAR FILTRATION RATE (test code=GFR) 126.2 105-110 Units of measure=ml/min/1.73 m2 CREATININE (test code=CREAT) 0.7 mg/dL 0.6-1.3 CALCIUM (test code=CA) 8.8 mg/dL 8.0-10.5 [id number] 07:55:00* Test Item Value Reference Range Comments GLUBED (test code=GLUBED) 173 MG/DL 70-110 Performed by certified auxiliary equipment operator at [facility] [id number] 20:41:00* Test Item Value Reference Range Comments GLUBED (test code=GLUBED) 187 MG/DL 70-110 Performed by certified auxiliary equipment operator at [facility] [id number] 17:18:00* Test Item Value Reference Range Comments GLUBED (test code=GLUBED) 173 MG/DL 70-110 Performed by certified auxiliary equipment operator at [facility] [id number] 12:54:00* Test Item Value Reference Range Comments GLUBED (test code=GLUBED) 170 MG/DL 70-110 Performed by certified auxiliary equipment operator at [facility] - XR FLUOROSCOPY 0-60 [id number] 09:26:00 FAX: Cody Valladares Jr [phone] [place]: St: [facility] FAX: Rocio Rooney [phone] Name: LESVIA RUSSO [facility] : 1980 Age/S: 38/M [address] [place] [address] Unit #: [id number] [facility] Phys: Cody Dukes Jr, MD Acct: [id number] Dis Date: Status: ADM IN PHONE #: [phone] Exam Date: 08/12/2018 0755 FAX #: [phone] Reason: LT ANKLE FRACTURE EXAMS: CPT CODE: [id number] XR FLUOROSCOPY 0-60 MIN 40328 Intraprocedural fluoroscopy was provided by the Department of Radiology. Any images obtained were interpreted by the surgeon intraop eratively. Reference air kerma: 0.54 mGy, fluoroscopy time 20 seco nds SL: [id number] Electronically S igned by Mable Son on 08/12/2018 at 0926 Reported and signed by: Peterson Son M.D. CC: Cody coto Jr, MD; Mayra Rooney MD Technologist: Anastasiia Millard, RT(R) Trnscrd Date/Time/By: 08/12/2018 (09) : By: pankaj MARTINEZ Orig Print D/T: S: 08/12/2018 (0992) P AGE 1 Signed Report GLUBED 2018-08-12 08:39:00* Test Item Value Reference Range Comments GLUBED (test code=GLUBED) 111 MG/DL 70-110 Performed by certified auxiliary equipment operator at [facility] PROTHROMBIN [id number] 04:21:00* Test Item Value Reference Range Comments PROTHROMBIN TIME PATIENT (test code=PTP) 11.1 SECONDS 9.3-12.9 INTERNATIONAL NORMAL RATIO (test code=INR) 1.0 0.8-1.2 TARGET INR BY INDICATION Indication INR1. Prophylaxis of venous thrombosis 2.0 - 3.0 (orthopedic surgery), Prophylaxis of venous thrombosis (other than high-risk surgery), Treatment of Deep Vein Thrombosis/Pulmonary Embolism, Prevention of systemic embolism - Tissue heart valves, Acute Myocardial Infarction (to prevent systemic embolism), Valvular heart disease, Atrial Fibrillation, Bileaflet mechanical valve in aortic position.2. Mechanical prosthetic valves (high risk), 2.5 - 3.5 Presence of Lupus Anticoagulant or Antiphospholipid Antibodies, Prevention of systemic embolism - Acute Myocardial Infarction (to prevent recurrent infarct). THROMBOPLASTIN TIME [id number] 04:21:00* Test Item Value Reference Range Comments THROMBOPLASTIN TIME PARTIAL (test code=PTT) 32.5 Seconds 25.0-39.5 Therapeutic Range: 50.4 - 88.3 Seconds Effective 06/03/2018 PROTHROMBIN [id number] 04:21:00* Test Item Value Reference Range Comments PROTHROMBIN TIME PATIENT (test code=PTP) 11.1 SECONDS 9.3-12.9 INTERNATIONAL NORMAL RATIO (test code=INR) 1.0 0.8-1.2 TARGET INR BY INDICATION Indication INR1. Prophylaxis of venous thrombosis 2.0 - 3.0 (orthopedic surgery), Prophylaxis of venous thrombosis (other than high-risk surgery), Treatment of Deep Vein Thrombosis/Pulmonary Embolism, Prevention of systemic embolism - Tissue heart valves, Acute Myocardial Infarction (to prevent systemic embolism), Valvular heart disease, Atrial Fibrillation, Bileaflet mechanical valve in aortic position.2. Mechanical prosthetic valves (high risk), 2.5 - 3.5 Presence of Lupus Anticoagulant or Antiphospholipid Antibodies, Prevention of systemic embolism - Acute Myocardial Infarction (to prevent recurrent infarct). THROMBOPLASTIN TIME [id number] 04:21:00* Test Item Value Reference Range Comments THROMBOPLASTIN TIME PARTIAL (test code=PTT) 32.5 Seconds 25.0-39.5 Therapeutic Range: 50.4 - 88.3 Seconds Effective 06/03/2018 PROTHROMBIN [id number] 04:21:00* Test Item Value Reference Range Comments PROTHROMBIN TIME PATIENT (test code=PTP) 11.1 SECONDS 9.3-12.9 INTERNATIONAL NORMAL RATIO (test code=INR) 1.0 0.8-1.2 TARGET INR BY INDICATION Indication INR1. Prophylaxis of venous thrombosis 2.0 - 3.0 (orthopedic surgery), Prophylaxis of venous thrombosis (other than high-risk surgery), Treatment of Deep Vein Thrombosis/Pulmonary Embolism, Prevention of systemic embolism - Tissue heart valves, Acute Myocardial Infarction (to prevent systemic embolism), Valvular heart disease, Atrial Fibrillation, Bileaflet mechanical valve in aortic position.2. Mechanical prosthetic valves (high risk), 2.5 - 3.5 Presence of Lupus Anticoagulant or Antiphospholipid Antibodies, Prevention of systemic embolism - Acute Myocardial Infarction (to prevent recurrent infarct). THROMBOPLASTIN TIME [id number] 04:21:00* Test Item Value Reference Range Comments THROMBOPLASTIN TIME PARTIAL (test code=PTT) 32.5 Seconds 25.0-39.5 Therapeutic Range: 50.4 - 88.3 Seconds Effective 06/03/2018 BASIC METABOLIC [id number] 04:17:00* Test Item Value Reference Range Comments SODIUM (test code=NA) 133 mEq/L 134-147 POTASSIUM (test code=K) 4.3 mEq/L 3.4-5.0 CHLORIDE (test code=CL) 101 mEq/L 100-108 CARBON DIOXIDE (test code=CO2) 25 mEq/L 21-33 ANION GAP (test code=GAP) 11 0-20 GLUCOSE (test code=GLU) 109 mg/dL 70-110 BLOOD UREA NITROGEN (test code=BUN) 10 mg/dL 7-18 GLOMERULAR FILTRATION RATE (test code=GFR) 94.4 105-110 Units of measure=ml/min/1.73 m2 CREATININE (test code=CREAT) 0.9 mg/dL 0.6-1.3 CALCIUM (test code=CA) 9.0 mg/dL 8.0-10.5 BASIC METABOLIC [id number] 04:17:00* Test Item Value Reference Range Comments SODIUM (test code=NA) 133 mEq/L 134-147 POTASSIUM (test code=K) 4.3 mEq/L 3.4-5.0 CHLORIDE (test code=CL) 101 mEq/L 100-108 CARBON DIOXIDE (test code=CO2) 25 mEq/L 21-33 ANION GAP (test code=GAP) 11 0-20 GLUCOSE (test code=GLU) 109 mg/dL 70-110 BLOOD UREA NITROGEN (test code=BUN) 10 mg/dL 7-18 GLOMERULAR FILTRATION RATE (test code=GFR) 94.4 105-110 Units of measure=ml/min/1.73 m2 CREATININE (test code=CREAT) 0.9 mg/dL 0.6-1.3 CALCIUM (test code=CA) 9.0 mg/dL 8.0-10.5 BASIC METABOLIC [id number] 04:17:00* Test Item Value Reference Range Comments SODIUM (test code=NA) 133 mEq/L 134-147 POTASSIUM (test code=K) 4.3 mEq/L 3.4-5.0 CHLORIDE (test code=CL) 101 mEq/L 100-108 CARBON DIOXIDE (test code=CO2) 25 mEq/L 21-33 ANION GAP (test code=GAP) 11 0-20 GLUCOSE (test code=GLU) 109 mg/dL 70-110 BLOOD UREA NITROGEN (test code=BUN) 10 mg/dL 7-18 GLOMERULAR FILTRATION RATE (test code=GFR) 94.4 105-110 Units of measure=ml/min/1.73 m2 CREATININE (test code=CREAT) 0.9 mg/dL 0.6-1.3 CALCIUM (test code=CA) 9.0 mg/dL 8.0-10.5 CBC W/AUTO [id number] 03:55:00* Test Item Value Reference Range Comments WHITE BLOOD CELL (test code=WBC) 5.07 x10 3/uL 4.5-11.0 RED BLOOD CELL (test code=RBC) 2.89 x10 6/uL 4.00-5.60 HEMOGLOBIN (test code=HGB) 8.3 g/dL 12.5-16.9 HEMATOCRIT (test code=HCT) 26.7 % 37.5-50.7 MEAN CELL VOLUME (test code=MCV) 92.4 fL 81.0-99.0 MEAN CELL HGB (test code=MCH) 28.7 pg 27.0-33.0 MEAN CELL HGB CONCETRATION (test code=MCHC) 31.1 g/dL 33.0-37.0 RED CELL DISTRIBUTION WIDTH CV (test code=RDW) 14.1 % 11.5-14.5 RED CELL DISTRIBUTION WIDTH SD (test code=RDW-SD) 47.8 fL 37.0-54.0 PLATELET COUNT (test code=PLT) 155 x10 3/uL 150-400 MEAN PLATELET VOLUME (test code=MPV) 8.9 fL 7.0-9.0 NEUTROPHIL % (test code=NT%) 48.9 % 56.0-77.0 IMMATURE GRANULOCYTE % (test code=IG%) 0.2 % 0.0-2.0 LYMPHOCYTE % (test code=LY%) 28.2 % 14.0-32.0 MONOCYTE % (test code=MO%) 14.0 % 4.8-9.0 EOSINOPHIL % (test code=EO%) 8.1 % 0.3-3.7 BASOPHIL % (test code=BA%) 0.6 % 0.0-2.0 NUCLEATED RBC % (test code=NRBC%) 0.0 % 0-0 NEUTROPHIL # (test code=NT#) 2.48 x10 3/uL 2.0-7.6 IMMATURE GRANULOCYTE # (test code=IG#) 0.01 x10 3/uL 0.00-0.03 LYMPHOCYTE # (test code=LY#) 1.43 x10 3/uL 1.0-3.8 MONOCYTE # (test code=MO#) 0.71 x10 3/uL 0.1-0.8 EOSINOPHIL # (test code=EO#) 0.41 x10 3/uL 0.0-0.2 BASOPHIL # (test code=BA#) 0.03 x10 3/uL 0.0-0.2 NUCLEATED RBC # (test code=NRBC#) 0.00 x10 3/uL 0.0-0.1 MANUAL DIFF REQUIRED (test code=MDIFF) NO CBC W/AUTO [id number] 03:55:00* Test Item Value Reference Range Comments WHITE BLOOD CELL (test code=WBC) 5.07 x10 3/uL 4.5-11.0 RED BLOOD CELL (test code=RBC) 2.89 x10 6/uL 4.00-5.60 HEMOGLOBIN (test code=HGB) 8.3 g/dL 12.5-16.9 HEMATOCRIT (test code=HCT) 26.7 % 37.5-50.7 MEAN CELL VOLUME (test code=MCV) 92.4 fL 81.0-99.0 MEAN CELL HGB (test code=MCH) 28.7 pg 27.0-33.0 MEAN CELL HGB CONCETRATION (test code=MCHC) 31.1 g/dL 33.0-37.0 RED CELL DISTRIBUTION WIDTH CV (test code=RDW) 14.1 % 11.5-14.5 RED CELL DISTRIBUTION WIDTH SD (test code=RDW-SD) 47.8 fL 37.0-54.0 PLATELET COUNT (test code=PLT) 155 x10 3/uL 150-400 MEAN PLATELET VOLUME (test code=MPV) 8.9 fL 7.0-9.0 NEUTROPHIL % (test code=NT%) 48.9 % 56.0-77.0 IMMATURE GRANULOCYTE % (test code=IG%) 0.2 % 0.0-2.0 LYMPHOCYTE % (test code=LY%) 28.2 % 14.0-32.0 MONOCYTE % (test code=MO%) 14.0 % 4.8-9.0 EOSINOPHIL % (test code=EO%) 8.1 % 0.3-3.7 BASOPHIL % (test code=BA%) 0.6 % 0.0-2.0 NUCLEATED RBC % (test code=NRBC%) 0.0 % 0-0 NEUTROPHIL # (test code=NT#) 2.48 x10 3/uL 2.0-7.6 IMMATURE GRANULOCYTE # (test code=IG#) 0.01 x10 3/uL 0.00-0.03 LYMPHOCYTE # (test code=LY#) 1.43 x10 3/uL 1.0-3.8 MONOCYTE # (test code=MO#) 0.71 x10 3/uL 0.1-0.8 EOSINOPHIL # (test code=EO#) 0.41 x10 3/uL 0.0-0.2 BASOPHIL # (test code=BA#) 0.03 x10 3/uL 0.0-0.2 NUCLEATED RBC # (test code=NRBC#) 0.00 x10 3/uL 0.0-0.1 MANUAL DIFF REQUIRED (test code=MDIFF) NO CBC W/AUTO [id number] 03:55:00* Test Item Value Reference Range Comments WHITE BLOOD CELL (test code=WBC) 5.07 x10 3/uL 4.5-11.0 RED BLOOD CELL (test code=RBC) 2.89 x10 6/uL 4.00-5.60 HEMOGLOBIN (test code=HGB) 8.3 g/dL 12.5-16.9 HEMATOCRIT (test code=HCT) 26.7 % 37.5-50.7 MEAN CELL VOLUME (test code=MCV) 92.4 fL 81.0-99.0 MEAN CELL HGB (test code=MCH) 28.7 pg 27.0-33.0 MEAN CELL HGB CONCETRATION (test code=MCHC) 31.1 g/dL 33.0-37.0 RED CELL DISTRIBUTION WIDTH CV (test code=RDW) 14.1 % 11.5-14.5 RED CELL DISTRIBUTION WIDTH SD (test code=RDW-SD) 47.8 fL 37.0-54.0 PLATELET COUNT (test code=PLT) 155 x10 3/uL 150-400 MEAN PLATELET VOLUME (test code=MPV) 8.9 fL 7.0-9.0 NEUTROPHIL % (test code=NT%) 48.9 % 56.0-77.0 IMMATURE GRANULOCYTE % (test code=IG%) 0.2 % 0.0-2.0 LYMPHOCYTE % (test code=LY%) 28.2 % 14.0-32.0 MONOCYTE % (test code=MO%) 14.0 % 4.8-9.0 EOSINOPHIL % (test code=EO%) 8.1 % 0.3-3.7 BASOPHIL % (test code=BA%) 0.6 % 0.0-2.0 NUCLEATED RBC % (test code=NRBC%) 0.0 % 0-0 NEUTROPHIL # (test code=NT#) 2.48 x10 3/uL 2.0-7.6 IMMATURE GRANULOCYTE # (test code=IG#) 0.01 x10 3/uL 0.00-0.03 LYMPHOCYTE # (test code=LY#) 1.43 x10 3/uL 1.0-3.8 MONOCYTE # (test code=MO#) 0.71 x10 3/uL 0.1-0.8 EOSINOPHIL # (test code=EO#) 0.41 x10 3/uL 0.0-0.2 BASOPHIL # (test code=BA#) 0.03 x10 3/uL 0.0-0.2 NUCLEATED RBC # (test code=NRBC#) 0.00 x10 3/uL 0.0-0.1 MANUAL DIFF REQUIRED (test code=MDIFF) NO CBC W/AUTO [id number] 03:55:00* Test Item Value Reference Range Comments WHITE BLOOD CELL (test code=WBC) 5.07 x10 3/uL 4.5-11.0 RED BLOOD CELL (test code=RBC) 2.89 x10 6/uL 4.00-5.60 HEMOGLOBIN (test code=HGB) 8.3 g/dL 12.5-16.9 HEMATOCRIT (test code=HCT) 26.7 % 37.5-50.7 MEAN CELL VOLUME (test code=MCV) 92.4 fL 81.0-99.0 MEAN CELL HGB (test code=MCH) 28.7 pg 27.0-33.0 MEAN CELL HGB CONCETRATION (test code=MCHC) 31.1 g/dL 33.0-37.0 RED CELL DISTRIBUTION WIDTH CV (test code=RDW) 14.1 % 11.5-14.5 RED CELL DISTRIBUTION WIDTH SD (test code=RDW-SD) 47.8 fL 37.0-54.0 PLATELET COUNT (test code=PLT) 155 x10 3/uL 150-400 MEAN PLATELET VOLUME (test code=MPV) 8.9 fL 7.0-9.0 NEUTROPHIL % (test code=NT%) 48.9 % 56.0-77.0 IMMATURE GRANULOCYTE % (test code=IG%) 0.2 % 0.0-2.0 LYMPHOCYTE % (test code=LY%) 28.2 % 14.0-32.0 MONOCYTE % (test code=MO%) 14.0 % 4.8-9.0 EOSINOPHIL % (test code=EO%) 8.1 % 0.3-3.7 BASOPHIL % (test code=BA%) 0.6 % 0.0-2.0 NUCLEATED RBC % (test code=NRBC%) 0.0 % 0-0 NEUTROPHIL # (test code=NT#) 2.48 x10 3/uL 2.0-7.6 IMMATURE GRANULOCYTE # (test code=IG#) 0.01 x10 3/uL 0.00-0.03 LYMPHOCYTE # (test code=LY#) 1.43 x10 3/uL 1.0-3.8 MONOCYTE # (test code=MO#) 0.71 x10 3/uL 0.1-0.8 EOSINOPHIL # (test code=EO#) 0.41 x10 3/uL 0.0-0.2 BASOPHIL # (test code=BA#) 0.03 x10 3/uL 0.0-0.2 NUCLEATED RBC # (test code=NRBC#) 0.00 x10 3/uL 0.0-0.1 MANUAL DIFF REQUIRED (test code=MDIFF) NO [id number] 20:59:00* Test Item Value Reference Range Comments GLUBED (test code=GLUBED) 113 MG/DL 70-110 Performed by certified auxiliary equipment operator at [facility] [id number] 17:41:00* Test Item Value Reference Range Comments GLUBED (test code=GLUBED) 159 MG/DL 70-110 Performed by certified auxiliary equipment operator at [facility] [id number] 13:47:00* Test Item Value Reference Range Comments GLUBED (test code=GLUBED) 128 MG/DL 70-110 Performed by certified auxiliary equipment operator at [facility] [id number] 10:24:00* Test Item Value Reference Range Comments GLUBED (test code=GLUBED) 147 MG/DL 70-110 Performed by certified auxiliary equipment operator at [facility] - XR ANKLE 3 + V [id number] 10:07:00 FAX: Gladys Alaniz MD [phone] [place]: St: ADM FAX: Y Cody Dukes Jr [phone] Name: LESVIA RUSSO [facility] [place] : 1980 Age/S: 38/M [address] [place] [address] Unit #: [id number] Loc: [place] [address] Phys: Cody Dukes Jr, MD Acct: [id number] Dis Date: Status: ADM IN PHONE #: [phone] Exam Date: 08/11/2018935 FAX #: [phone] Reason: fracture EXAMS: CPT CODE: [id number] XR ANKLE 3 + V LT [id number] EXAMINATION: Left ankle 3 views 08/11/2018. CLINICAL HISTORY: Fracture, left lower extremity cellulitis. COMPARISON: Left ankle 3 views 07/30/2018. FINDINGS: 3 views of the left ankle are provided for interpretation in 3 images. RT. Hardware is evident in the distal left fibula traversing a comminuted fracture. The fracture alignment is not significantly changed. The more proximal p ortion of the fracture is less conspicuous on the prior examination and mi nimal callus is evident medially. There is increased radiodensity in the soft tissues of the distal interosseous region as well as lateral to the d istal fibula when compared to the prior examination. Lateral to the proximal portion of the compression plate, multiple small punctate radiodensities are present. There is widening of the ankle mortise medially. Diffuse soft tissue swelling is evident. IMPRESSION: 1. Stable orthopedic hardware with distal left fibular fracture less conspicuous, stable in alignment. 2. Diffuse soft tissue swelling. 3. Widening of the ankle mortise medially. 4. Punctate radiodensities lateral to the proximal orthopedic hardware are of uncertain location. If these are within the soft tissues, foreign bodies are a consideration. at 1007 Reported and signed by: Cristal Menendez M.D. CC: Gladys Alaniz MD; Cody Dukes Jr, MD Technologist: RT Marlene(Deshawn)Deshawn Trnscrd Date/Time/By: 08/11/2018 (1007) : By: TanaWS Orig Print D/T: S: 08/11/2018 (1011) PAGE 1 Signed Report BASIC METABOLIC [id number] 04:00:00* Test Item Value Reference Range Comments SODIUM (test code=NA) 135 mEq/L 134-147 POTASSIUM (test code=K) 3.9 mEq/L 3.4-5.0 CHLORIDE (test code=CL) 103 mEq/L 100-108 CARBON DIOXIDE (test code=CO2) 22 mEq/L 21-33 ANION GAP (test code=GAP) 14 0-20 GLUCOSE (test code=GLU) 135 mg/dL 70-110 BLOOD UREA NITROGEN (test code=BUN) 9 mg/dL 7-18 GLOMERULAR FILTRATION RATE (test code=GFR) 94.4 105-110 Units of measure=ml/min/1.73 m2 CREATININE (test code=CREAT) 0.9 mg/dL 0.6-1.3 CALCIUM (test code=CA) 8.6 mg/dL 8.0-10.5 CBC W/AUTO [id number] 03:42:00* Test Item Value Reference Range Comments WHITE BLOOD CELL (test code=WBC) 5.76 x10 3/uL 4.5-11.0 RED BLOOD CELL (test code=RBC) 2.93 x10 6/uL 4.00-5.60 HEMOGLOBIN (test code=HGB) 8.6 g/dL 12.5-16.9 HEMATOCRIT (test code=HCT) 26.8 % 37.5-50.7 MEAN CELL VOLUME (test code=MCV) 91.5 fL 81.0-99.0 MEAN CELL HGB (test code=MCH) 29.4 pg 27.0-33.0 MEAN CELL HGB CONCETRATION (test code=MCHC) 32.1 g/dL 33.0-37.0 RED CELL DISTRIBUTION WIDTH CV (test code=RDW) 14.1 % 11.5-14.5 RED CELL DISTRIBUTION WIDTH SD (test code=RDW-SD) 47.6 fL 37.0-54.0 PLATELET COUNT (test code=PLT) 140 x10 3/uL 150-400 MEAN PLATELET VOLUME (test code=MPV) 8.6 fL 7.0-9.0 NEUTROPHIL % (test code=NT%) 57.6 % 56.0-77.0 IMMATURE GRANULOCYTE % (test code=IG%) 0.7 % 0.0-2.0 LYMPHOCYTE % (test code=LY%) 21.5 % 14.0-32.0 MONOCYTE % (test code=MO%) 12.2 % 4.8-9.0 EOSINOPHIL % (test code=EO%) 7.5 % 0.3-3.7 BASOPHIL % (test code=BA%) 0.5 % 0.0-2.0 NUCLEATED RBC % (test code=NRBC%) 0.0 % 0-0 NEUTROPHIL # (test code=NT#) 3.32 x10 3/uL 2.0-7.6 IMMATURE GRANULOCYTE # (test code=IG#) 0.04 x10 3/uL 0.00-0.03 LYMPHOCYTE # (test code=LY#) 1.24 x10 3/uL 1.0-3.8 MONOCYTE # (test code=MO#) 0.70 x10 3/uL 0.1-0.8 EOSINOPHIL # (test code=EO#) 0.43 x10 3/uL 0.0-0.2 BASOPHIL # (test code=BA#) 0.03 x10 3/uL 0.0-0.2 NUCLEATED RBC # (test code=NRBC#) 0.00 x10 3/uL 0.0-0.1 MANUAL DIFF REQUIRED (test code=MDIFF) NO HGBA1C%2018-08-10 23:17:00* Test Item Value Reference Range Comments HGBA1C% (test code=HGBA1C%) 5.8 %A1C 4.8-6.0 [id number] 23:17:00* Test Item Value Reference Range Comments GLUBED (test code=GLUBED) 146 MG/DL 70-110 Performed by certified auxiliary equipment operator at [facility] CBC W/AUTO [id number] 23:04:00* Test Item Value Reference Range Comments WHITE BLOOD CELL (test code=WBC) 5.29 x10 3/uL 4.5-11.0 RED BLOOD CELL (test code=RBC) 3.01 x10 6/uL 4.00-5.60 HEMOGLOBIN (test code=HGB) 8.9 g/dL 12.5-16.9 HEMATOCRIT (test code=HCT) 27.7 % 37.5-50.7 MEAN CELL VOLUME (test code=MCV) 92.0 fL 81.0-99.0 MEAN CELL HGB (test code=MCH) 29.6 pg 27.0-33.0 MEAN CELL HGB CONCETRATION (test code=MCHC) 32.1 g/dL 33.0-37.0 RED CELL DISTRIBUTION WIDTH CV (test code=RDW) 14.1 % 11.5-14.5 RED CELL DISTRIBUTION WIDTH SD (test code=RDW-SD) 47.2 fL 37.0-54.0 PLATELET COUNT (test code=PLT) 134 x10 3/uL 150-400 MEAN PLATELET VOLUME (test code=MPV) 8.4 fL 7.0-9.0 NEUTROPHIL % (test code=NT%) 56.7 % 56.0-77.0 IMMATURE GRANULOCYTE % (test code=IG%) 0.4 % 0.0-2.0 LYMPHOCYTE % (test code=LY%) 21.0 % 14.0-32.0 MONOCYTE % (test code=MO%) 13.6 % 4.8-9.0 EOSINOPHIL % (test code=EO%) 7.9 % 0.3-3.7 BASOPHIL % (test code=BA%) 0.4 % 0.0-2.0 NUCLEATED RBC % (test code=NRBC%) 0.0 % 0-0 NEUTROPHIL # (test code=NT#) 3.00 x10 3/uL 2.0-7.6 IMMATURE GRANULOCYTE # (test code=IG#) 0.02 x10 3/uL 0.00-0.03 LYMPHOCYTE # (test code=LY#) 1.11 x10 3/uL 1.0-3.8 MONOCYTE # (test code=MO#) 0.72 x10 3/uL 0.1-0.8 EOSINOPHIL # (test code=EO#) 0.42 x10 3/uL 0.0-0.2 BASOPHIL # (test code=BA#) 0.02 x10 3/uL 0.0-0.2 NUCLEATED RBC # (test code=NRBC#) 0.00 x10 3/uL 0.0-0.1 MANUAL DIFF REQUIRED (test code=MDIFF) NO SED RATE [id number] 23:04:00* Test Item Value Reference Range Comments SED RATE WESTERGREN (test code=SEDW) 40 mm/hr 0-15 COMPREHENSIVE METABOLIC [id number] 22:30:00* Test Item Value Reference Range Comments SODIUM (test code=NA) 135 mEq/L 134-147 POTASSIUM (test code=K) 4.0 mEq/L 3.4-5.0 CHLORIDE (test code=CL) 103 mEq/L 100-108 CARBON DIOXIDE (test code=CO2) 24 mEq/L 21-33 ANION GAP (test code=GAP) 12 0-20 GLUCOSE (test code=GLU) 141 mg/dL 70-110 BLOOD UREA NITROGEN (test code=BUN) 8 mg/dL 7-18 GLOMERULAR FILTRATION RATE (test code=GFR) 83.6 105-110 Units of measure=ml/min/1.73 m2 CREATININE (test code=CREAT) 1.0 mg/dL 0.6-1.3 TOTAL PROTEIN (test code=PROT) 7.2 g/dL 6.4-8.2 ALBUMIN (test code=ALB) 3.40 g/dL 3.4-5.0 CALCIUM (test code=CA) 8.5 mg/dL 8.0-10.5 BILIRUBIN TOTAL (test code=BILT) 0.50 mg/dL 0.0-1.0 SGOT/AST (test code=AST) 30 IUnit/L 15-37 SGPT/ALT (test code=ALT) 33 IUnit/L 15-65 ALKALINE PHOSPHATASE TOTAL (test code=ALKP) 117 IUnit/L 20-125 LIPID PROFILE (CORONARY RISK)2018-08-10 22:30:00* Test Item Value Reference Range Comments TRIGLYCERIDES (test code=TRIG) 270 mg/dL 40-150 CHOLESTEROL (test code=CHOL) 229 mg/dL <200 CHOLESTEROL/HDL RATIO (test code=CHOLHDL) 5.87 RATIO 3.43-4.97 RISK ASSOCIATED WITH CHOL/HDL RATIOS: RISK MALE FEMALE1/2 AVERAGE 3.43 3.27AVERAGE 4.97 4.442X AVERAGE 9.55 7.053X AVERAGE 23.39 11.04 NOTE THAT THE REFERENCE VALUE IS RELATEDTO RISK LEVELS RECOMMENDED BY THE NATL.HEART, LUNG, AND BLOOD INST. HDL CHOLESTEROL (test code=HDL) 39.0 mg/dL 32-72 LIPOPROTEIN LDL (test code=LDL) 148 mg/dL 0-100 <100 [id number] NEAR OPTIMAL/ABOVE [id number] HIGH>XQ=170 VERY HIGH*Guidelines provided by the National Cholesterol EducationProgram Adult Treatment Panel III T4 [id number] 22:30:00* Test Item Value Reference Range Comments T4 FREE (test code=T4F) 0.8 ng/dL 0.77-1.61 THYROID STIMULATING [id number] 22:30:00* Test Item Value Reference Range Comments THYROID STIMULATING HORMONE (test code=TSH) 4.94 0.42-5.47 Results in deana-International Units/mL URINALYSIS [id number] 22:18:00* Test Item Value Reference Range Comments UA COLOR (test code=COLU) YELLOW YEL/STRAW UA APPEARANCE (test code=APPU) CLEAR CLEAR UA GLUCOSE DIPSTICK (test code=DGLUU) NEGATIVE NEGATIVE UA BILIRUBIN DIPSTICK (test code=BILU) NEGATIVE NEGATIVE UA KETONE DIPSTICK (test code=KETU) TRACE NEGATIVE UA SPECIFIC GRAVITY (test code=SGU) 1.012 1.005-1.030 UA BLOOD DIPSTICK (test code=KILO) NEGATIVE NEGATIVE UA PH DIPSTICK (test code=PRICILA) 5.0 5.0-7.0 UA PROTEIN DIPSTICK (test code=PROU) NEGATIVE NEGATIVE UA UROBILINIOGEN DIPSTICK (test code=URO) 0.2 mg/dL 0.2-1.0 UA NITRITE DIPSTICK (test code=ELIOT) NEGATIVE NEGATIVE UA LEUKOCYTE ESTERASE DIPSTICK (test code=LEUU) NEGATIVE NEGATIVE UA WBC (test code=WBCU) 4-9 WBC/HPF 0-3 UA RBC (test code=RBCU) 0-3 RBC/HPF 0-3 UA BACTERIA (test code=BACU) NONE SEEN /HPF NONE SEEN UA SQUAMOUS CELLS (test code=SQU) NONE SEEN /HPF NONE SEEN UA MUCUS (test code=MUCU) TRACE /LPF NONE SEEN CBC W/AUTO [id number] 22:08:00* Test Item Value Reference Range Comments WHITE BLOOD CELL (test code=WBC) 5.29 x10 3/uL 4.5-11.0 RED BLOOD CELL (test code=RBC) 3.01 x10 6/uL 4.00-5.60 HEMOGLOBIN (test code=HGB) 8.9 g/dL 12.5-16.9 HEMATOCRIT (test code=HCT) 27.7 % 37.5-50.7 MEAN CELL VOLUME (test code=MCV) 92.0 fL 81.0-99.0 MEAN CELL HGB (test code=MCH) 29.6 pg 27.0-33.0 MEAN CELL HGB CONCETRATION (test code=MCHC) 32.1 g/dL 33.0-37.0 RED CELL DISTRIBUTION WIDTH CV (test code=RDW) 14.1 % 11.5-14.5 RED CELL DISTRIBUTION WIDTH SD (test code=RDW-SD) 47.2 fL 37.0-54.0 PLATELET COUNT (test code=PLT) 134 x10 3/uL 150-400 MEAN PLATELET VOLUME (test code=MPV) 8.4 fL 7.0-9.0 NEUTROPHIL % (test code=NT%) 56.7 % 56.0-77.0 IMMATURE GRANULOCYTE % (test code=IG%) 0.4 % 0.0-2.0 LYMPHOCYTE % (test code=LY%) 21.0 % 14.0-32.0 MONOCYTE % (test code=MO%) 13.6 % 4.8-9.0 EOSINOPHIL % (test code=EO%) 7.9 % 0.3-3.7 BASOPHIL % (test code=BA%) 0.4 % 0.0-2.0 NUCLEATED RBC % (test code=NRBC%) 0.0 % 0-0 NEUTROPHIL # (test code=NT#) 3.00 x10 3/uL 2.0-7.6 IMMATURE GRANULOCYTE # (test code=IG#) 0.02 x10 3/uL 0.00-0.03 LYMPHOCYTE # (test code=LY#) 1.11 x10 3/uL 1.0-3.8 MONOCYTE # (test code=MO#) 0.72 x10 3/uL 0.1-0.8 EOSINOPHIL # (test code=EO#) 0.42 x10 3/uL 0.0-0.2 BASOPHIL # (test code=BA#) 0.02 x10 3/uL 0.0-0.2 NUCLEATED RBC # (test code=NRBC#) 0.00 x10 3/uL 0.0-0.1 MANUAL DIFF REQUIRED (test code=MDIFF) NO SED RATE [id number] 22:08:00* Test Item Value Reference Range Comments SED RATE WESTERGREN (test code=SEDW) mm/hr 0-15 [id number] 23:01:00* Test Item Value Reference Range Comments ALCOHOL (test code=ALC) 46 mg/dL 0.0-3.0 INTERPRETIVE DATA NOTE: POSITIVE SCREENING RESULTS SHOULD BE CONSIDERED PRESUMPTIVE.WHEN COLLECTED FOR MEDICAL PURPOSES ONLY. SPECIMEN WILL NOTBE COLLECTED BY CHAIN OF CUSTODY.IF A CONFIRMATION OF POSITIVE RESULTS IS DESIRED, ACONFIRMATION TEST MUST BE REQUESTED BY THE PHYSICIAN AT ANADDITIONAL CHARGE TO THE PATIENT. BASIC METABOLIC [id number] 18:16:00* Test Item Value Reference Range Comments SODIUM (test code=NA) 135 mmol/L 136-145 POTASSIUM (test code=K) 3.8 mmol/L 3.5-5.1 CHLORIDE (test code=CL) 102.0 mmol/L 98-107 CARBON DIOXIDE (test code=CO2) 24.0 mmol/L 21-32 ANION GAP (test code=GAP) 12.8 10-20 GLUCOSE (test code=GLU) 135 mg/dL 74-106 BLOOD UREA NITROGEN (test code=BUN) 6 mg/dL 7-18 GLOMERULAR FILTRATION RATE (test code=GFR) > 60 mL/min >=60 Estimated GFR by using Modified MDRD formula.Chronic kidney disease is defined as either kidney damageor GFR <60 mL/min/1.73 m2 for >3 months. CREATININE (test code=CREAT) 0.80 mg/dL 0.7-1.3 BUN/CREATININE RATIO (test code=BUN/CREA) 7.5 10-20 CALCIUM (test code=CA) 8.3 mg/dL 8.5-10.1 HEPATIC FUNCTION [id number] 18:16:00* Test Item Value Reference Range Comments TOTAL PROTEIN (test code=PROT) 7.1 gram/dL 6.4-8.2 ALBUMIN (test code=ALB) 3.3 g/dL 3.4-5.0 GLOBULIN (test code=GLOB) 3.8 gram/dL 2.7-4.2 ALBUMIN/GLOBULIN RATIO (test code=A/G) 0.9 0.75-1.50 BILIRUBIN TOTAL (test code=BILT) 0.50 mg/dL 0.0-1.0 BILIRUBIN DIRECT (test code=BILD) 0.22 mg/dL 0.0-0.20 SGOT/AST (test code=AST) 55 IUnit/L 15-37 SGPT/ALT (test code=ALT) 60 IUnit/L 12-78 ALKALINE PHOSPHATASE TOTAL (test code=ALKP) 141 IUnit/L 45-117 Note change in reference range due to change in reagent. [id number] 18:16:00* Test Item Value Reference Range Comments ALCOHOL (test code=ALC) 229 mg/dL 0.0-3.0 INTERPRETIVE DATA NOTE: POSITIVE SCREENING RESULTS SHOULD BE CONSIDERED PRESUMPTIVE.WHEN COLLECTED FOR MEDICAL PURPOSES ONLY. SPECIMEN WILL NOTBE COLLECTED BY CHAIN OF CUSTODY.IF A CONFIRMATION OF POSITIVE RESULTS IS DESIRED, ACONFIRMATION TEST MUST BE REQUESTED BY THE PHYSICIAN AT ANADDITIONAL CHARGE TO THE PATIENT. URINALYSIS [id number] 17:58:00* Test Item Value Reference Range Comments UA COLOR (test code=COLU) Light-Yellow YELLOW UA APPEARANCE (test code=APPU) CLEAR CLEAR UA GLUCOSE DIPSTICK (test code=DGLUU) NEGATIVE mg/dL NEGATIVE UA BILIRUBIN DIPSTICK (test code=BILU) NEGATIVE mg/dL NEGATIVE UA KETONE DIPSTICK (test code=KETU) NEGATIVE mg/dL NEGATIVE UA SPECIFIC GRAVITY (test code=SGU) 1.008 1.001-1.035 UA BLOOD DIPSTICK (test code=KILO) Negative mg/dL NEGATIVE UA PH DIPSTICK (test code=PRICILA) 6.0 5.0-8.0 UA PROTEIN DIPSTICK (test code=PROU) 10 (Trace) mg/dL NEGATIVE UA UROBILINIOGEN DIPSTICK (test code=URO) Normal mg/dL NEGATIVE UA NITRITE DIPSTICK (test code=ELIOT) NEGATIVE NEGATIVE UA LEUKOCYTE ESTERASE W REFLEX (test code=LEUUR) NEGATIVE Teo/uL NEGATIVE UA WBC (test code=WBCU) 0-5 per HPF 0-5 UA RBC (test code=RBCU) 0-2 #/HPF 0-5 UA EPITHELIAL CELLS (test code=EPIU) FEW per HPF FEW UA BACTERIA (test code=BACU) NONE SEEN #/HPF NONE Urine Source? Clean CatchDRUGS OF ABUSE SCREEN [id number] 17:58:00* Test Item Value Reference Range Comments URN COCAINE (test code=COCAURN) NEGATIVE <300 ng/mL URN CANNABINOIDS (test code=CANNABURN) NEGATIVE <50 ng/mL URN AMPHETAMINE (test code=AMPHETURN) NEGATIVE <1000 ng/mL URN BARBITURATE (test code=BARBITURN) NEGATIVE <200 ng/mL URN BENZODIAZEPINE (test code=BENZOURN) POSITIVE <200 ng/mL This test provides only a preliminary test result. A morespecific alternate chemical method must be used in order toobtain a confirmed analytical result. Gas chromatography/mass spectrometry (GC/MS) is thepreferred confirmatory method. Other chemical confirmationmethods are available. Clinical consideration and professional judgment should be applied to any drug of abusetest result, particularly when preliminary positive resultsare used.Unconfirmed screening results must not be used fornon-medical purposes (e.g., employment testing, legaltesting). URN OPIATES (test code=OPIATURN) NEGATIVE <300 ng/mL URN PHENCYCLIDINE (PCP) (test code=PHENCURN) NEGATIVE <25 ng/mL URN METHADONE (test code=METHAURN) NEGATIVE <300 ng/mL Urine Source? Clean Catch- XR ANKLE 2 VIEWS [id number] 17:58:00 FAX: Terrence Morris MD [phone] [place]: B St: REG Name: LESVIA MCCLELLAN [facility] : [birth year] Age/S: 38/M [address] [facility] Unit #: [id number] Loc: [place] [address] Phys: Terrence Morris MD Acct: [id number] Dis Date: Status: REG ER PHONE #: [phone] Exam Date: 08/02/20181749 FAX #: [phone] Reason: ankle pain EXAMS: CPT CODE: [id number] [place] [address] [place] [address] HISTORY: Ankle pain. COMPARISON: July 14, 2018. AP and lateral view of the left ankle: Healing segmental fracture of the distal fibular lateral malleolus with metallic compression plate and screws stabilizing the fracture along the lateral margin in good anatomic alignment. Mild soft tissue sw elling. Ankle mortise is preserved. Small ankle joint fluid is noted. F racture fragment seen displaced posteriorly on the lateral view only. George ntar calcaneal enthesophyte. Os peroneum. IMPRESSION: Healing fracture of the distal fibular lateral malleolus in good anatomic alignment. Stabilizing metallic compression plate and screws seen laterally. Soft tissue swelling and joint fluid. Electronical ly Signed by Mable Gutierres on 08/02/2018 at 1758 Rep orted and signed by: Dawson Gutierres M.D. CC: Terrence Morris MD Technologist: Jackie Mosqueda RT(R) Trnscrd Date/Time/By: 08/02/2018 (1757) : By: Carmen BoatengTH4 Orig Print D/T: S: 08/02/2018 (865) PAG E 1 Signed Report CBC W/O [id number] 17:36:00* Test Item Value Reference Range Comments WHITE BLOOD CELL (test code=WBC) 8.8 K/mm3 4.5-12.5 RED BLOOD CELL (test code=RBC) 3.18 mill/mm3 4.0-5.8 HEMOGLOBIN (test code=HGB) 9.3 gram/dL 13.0-17.5 HEMATOCRIT (test code=HCT) 29.0 % 42.0-52.0 MEAN CELL VOLUME (test code=MCV) 91.2 fL 80-98 MEAN CELL HGB (test code=MCH) 29.2 picogram 27.0-33.0 MEAN CELL HGB CONCETRATION (test code=MCHC) 32.1 gram/dL 33.0-36.0 RED CELL DISTRIBUTION WIDTH (test code=RDW) 13.7 % 11.6-16.2 PLATELET COUNT (test code=PLT) 381 K/mm3 150-450 MEAN PLATELET VOLUME (test code=MPV) 8.2 fL 6.7-11.0 URINALYSIS [id number] 17:35:00* Test Item Value Reference Range Comments UA COLOR (test code=COLU) Light-Yellow YELLOW UA APPEARANCE (test code=APPU) CLEAR CLEAR UA GLUCOSE DIPSTICK (test code=DGLUU) NEGATIVE mg/dL NEGATIVE UA BILIRUBIN DIPSTICK (test code=BILU) NEGATIVE mg/dL NEGATIVE UA KETONE DIPSTICK (test code=KETU) NEGATIVE mg/dL NEGATIVE UA SPECIFIC GRAVITY (test code=SGU) 1.008 1.001-1.035 UA BLOOD DIPSTICK (test code=KILO) Negative mg/dL NEGATIVE UA PH DIPSTICK (test code=PRICILA) 6.0 5.0-8.0 UA PROTEIN DIPSTICK (test code=PROU) 10 (Trace) mg/dL NEGATIVE UA UROBILINIOGEN DIPSTICK (test code=URO) Normal mg/dL NEGATIVE UA NITRITE DIPSTICK (test code=ELIOT) NEGATIVE NEGATIVE UA LEUKOCYTE ESTERASE W REFLEX (test code=LEUUR) NEGATIVE Teo/uL NEGATIVE UA WBC (test code=WBCU) per HPF 0-5 UA RBC (test code=RBCU) per HPF 0-5 UA EPITHELIAL CELLS (test code=EPIU) per HPF Few UA BACTERIA (test code=BACU) per HPF NONE Urine Source? Clean CatchDRUGS OF ABUSE SCREEN [id number] 17:35:00* Test Item Value Reference Range Comments URN COCAINE (test code=COCAURN) <300 ng/mL URN CANNABINOIDS (test code=CANNABURN) <50 ng/mL URN AMPHETAMINE (test code=AMPHETURN) <1000 ng/mL URN BARBITURATE (test code=BARBITURN) <200 ng/mL URN BENZODIAZEPINE (test code=BENZOURN) <200 ng/mL URN OPIATES (test code=OPIATURN) <300 ng/mL URN PHENCYCLIDINE (PCP) (test code=PHENCURN) <25 ng/mL URN METHADONE (test code=METHAURN) <300 ng/mL Urine Source? Clean CatchURINALYSIS [id number] 17:35:00* Test Item Value Reference Range Comments UA COLOR (test code=COLU) Light-Yellow YELLOW UA APPEARANCE (test code=APPU) CLEAR CLEAR UA GLUCOSE DIPSTICK (test code=DGLUU) NEGATIVE mg/dL NEGATIVE UA BILIRUBIN DIPSTICK (test code=BILU) NEGATIVE mg/dL NEGATIVE UA KETONE DIPSTICK (test code=KETU) NEGATIVE mg/dL NEGATIVE UA SPECIFIC GRAVITY (test code=SGU) 1.008 1.001-1.035 UA BLOOD DIPSTICK (test code=KILO) Negative mg/dL NEGATIVE UA PH DIPSTICK (test code=PRICILA) 6.0 5.0-8.0 UA PROTEIN DIPSTICK (test code=PROU) 10 (Trace) mg/dL NEGATIVE UA UROBILINIOGEN DIPSTICK (test code=URO) Normal mg/dL NEGATIVE UA NITRITE DIPSTICK (test code=ELIOT) NEGATIVE NEGATIVE UA LEUKOCYTE ESTERASE W REFLEX (test code=LEUUR) NEGATIVE Teo/uL NEGATIVE UA WBC (test code=WBCU) 0-5 per HPF 0-5 UA RBC (test code=RBCU) 0-2 #/HPF 0-5 UA EPITHELIAL CELLS (test code=EPIU) FEW per HPF FEW UA BACTERIA (test code=BACU) NONE SEEN #/HPF NONE Urine Source? Clean CatchDRUGS OF ABUSE SCREEN [id number] 17:35:00* Test Item Value Reference Range Comments URN COCAINE (test code=COCAURN) <300 ng/mL URN CANNABINOIDS (test code=CANNABURN) <50 ng/mL URN AMPHETAMINE (test code=AMPHETURN) <1000 ng/mL URN BARBITURATE (test code=BARBITURN) <200 ng/mL URN BENZODIAZEPINE (test code=BENZOURN) <200 ng/mL URN OPIATES (test code=OPIATURN) <300 ng/mL URN PHENCYCLIDINE (PCP) (test code=PHENCURN) <25 ng/mL URN METHADONE (test code=METHAURN) <300 ng/mL Urine Source? Clean [id number] 22:46:00* Test Item Value Reference Range Comments AMMONIA (test code=AMM) 38 umol/L 11-32 URINALYSIS [id number] 22:14:00* Test Item Value Reference Range Comments UA COLOR (test code=COLU) Light-Yellow YELLOW UA APPEARANCE (test code=APPU) CLEAR CLEAR UA GLUCOSE DIPSTICK (test code=DGLUU) NEGATIVE mg/dL NEGATIVE UA BILIRUBIN DIPSTICK (test code=BILU) NEGATIVE mg/dL NEGATIVE UA KETONE DIPSTICK (test code=KETU) NEGATIVE mg/dL NEGATIVE UA SPECIFIC GRAVITY (test code=SGU) 1.014 1.001-1.035 UA BLOOD DIPSTICK (test code=KILO) Negative mg/dL NEGATIVE UA PH DIPSTICK (test code=PRICILA) 5.5 5.0-8.0 UA PROTEIN DIPSTICK (test code=PROU) 30 (1+) mg/dL NEGATIVE UA UROBILINIOGEN DIPSTICK (test code=URO) Normal mg/dL NEGATIVE UA NITRITE DIPSTICK (test code=ELIOT) NEGATIVE NEGATIVE UA LEUKOCYTE ESTERASE W REFLEX (test code=LEUUR) NEGATIVE Teo/uL NEGATIVE UA WBC (test code=WBCU) 0-5 per HPF 0-5 UA RBC (test code=RBCU) 0-2 #/HPF 0-5 UA EPITHELIAL CELLS (test code=EPIU) None seen per HPF FEW UA BACTERIA (test code=BACU) NONE SEEN #/HPF NONE UA MUCUS (test code=MUCU) FEW #/LPF FEW Urine Source? Clean CatchDRUGS OF ABUSE SCREEN [id number] 22:14:00* Test Item Value Reference Range Comments URN COCAINE (test code=COCAURN) NEGATIVE <300 ng/mL URN CANNABINOIDS (test code=CANNABURN) NEGATIVE <50 ng/mL URN AMPHETAMINE (test code=AMPHETURN) NEGATIVE <1000 ng/mL URN BARBITURATE (test code=BARBITURN) NEGATIVE <200 ng/mL URN BENZODIAZEPINE (test code=BENZOURN) POSITIVE <200 ng/mL This test provides only a preliminary test result. A morespecific alternate chemical method must be used in order toobtain a confirmed analytical result. Gas chromatography/mass spectrometry (GC/MS) is thepreferred confirmatory method. Other chemical confirmationmethods are available. Clinical consideration and professional judgment should be applied to any drug of abusetest result, particularly when preliminary positive resultsare used.Unconfirmed screening results must not be used fornon-medical purposes (e.g., employment testing, legaltesting). URN OPIATES (test code=OPIATURN) POSITIVE <300 ng/mL This test provides only a preliminary test result. A morespecific alternate chemical method must be used in order toobtain a confirmed analytical result. Gas chromatography/mass spectrometry (GC/MS) is thepreferred confirmatory method. Other chemical confirmationmethods are available. Clinical consideration and professional judgment should be applied to any drug of abusetest result, particularly when preliminary positive resultsare used.Unconfirmed screening results must not be used fornon-medical purposes (e.g., employment testing, legaltesting). URN PHENCYCLIDINE (PCP) (test code=PHENCURN) NEGATIVE <25 ng/mL URN METHADONE (test code=METHAURN) NEGATIVE <300 ng/mL Urine Source? Clean CatchURINALYSIS [id number] 21:30:00* Test Item Value Reference Range Comments UA COLOR (test code=COLU) Light-Yellow YELLOW UA APPEARANCE (test code=APPU) CLEAR CLEAR UA GLUCOSE DIPSTICK (test code=DGLUU) NEGATIVE mg/dL NEGATIVE UA BILIRUBIN DIPSTICK (test code=BILU) NEGATIVE mg/dL NEGATIVE UA KETONE DIPSTICK (test code=KETU) NEGATIVE mg/dL NEGATIVE UA SPECIFIC GRAVITY (test code=SGU) 1.014 1.001-1.035 UA BLOOD DIPSTICK (test code=KILO) Negative mg/dL NEGATIVE UA PH DIPSTICK (test code=PRICILA) 5.5 5.0-8.0 UA PROTEIN DIPSTICK (test code=PROU) 30 (1+) mg/dL NEGATIVE UA UROBILINIOGEN DIPSTICK (test code=URO) Normal mg/dL NEGATIVE UA NITRITE DIPSTICK (test code=ELIOT) NEGATIVE NEGATIVE UA LEUKOCYTE ESTERASE W REFLEX (test code=LEUUR) NEGATIVE Teo/uL NEGATIVE UA WBC (test code=WBCU) 0-5 per HPF 0-5 UA RBC (test code=RBCU) 0-2 #/HPF 0-5 UA EPITHELIAL CELLS (test code=EPIU) None seen per HPF FEW UA BACTERIA (test code=BACU) NONE SEEN #/HPF NONE UA MUCUS (test code=MUCU) FEW #/LPF FEW Urine Source? Clean CatchDRUGS OF ABUSE SCREEN [id number] 21:30:00* Test Item Value Reference Range Comments URN COCAINE (test code=COCAURN) <300 ng/mL URN CANNABINOIDS (test code=CANNABURN) <50 ng/mL URN AMPHETAMINE (test code=AMPHETURN) <1000 ng/mL URN BARBITURATE (test code=BARBITURN) <200 ng/mL URN BENZODIAZEPINE (test code=BENZOURN) <200 ng/mL URN OPIATES (test code=OPIATURN) <300 ng/mL URN PHENCYCLIDINE (PCP) (test code=PHENCURN) <25 ng/mL URN METHADONE (test code=METHAURN) <300 ng/mL Urine Source? Clean CatchURINALYSIS [id number] 21:26:00* Test Item Value Reference Range Comments UA COLOR (test code=COLU) Light-Yellow YELLOW UA APPEARANCE (test code=APPU) CLEAR CLEAR UA GLUCOSE DIPSTICK (test code=DGLUU) NEGATIVE mg/dL NEGATIVE UA BILIRUBIN DIPSTICK (test code=BILU) NEGATIVE mg/dL NEGATIVE UA KETONE DIPSTICK (test code=KETU) NEGATIVE mg/dL NEGATIVE UA SPECIFIC GRAVITY (test code=SGU) 1.014 1.001-1.035 UA BLOOD DIPSTICK (test code=KILO) Negative mg/dL NEGATIVE UA PH DIPSTICK (test code=PRICILA) 5.5 5.0-8.0 UA PROTEIN DIPSTICK (test code=PROU) 30 (1+) mg/dL NEGATIVE UA UROBILINIOGEN DIPSTICK (test code=URO) Normal mg/dL NEGATIVE UA NITRITE DIPSTICK (test code=ELIOT) NEGATIVE NEGATIVE UA LEUKOCYTE ESTERASE W REFLEX (test code=LEUUR) NEGATIVE Teo/uL NEGATIVE UA WBC (test code=WBCU) per HPF 0-5 UA RBC (test code=RBCU) per HPF 0-5 UA EPITHELIAL CELLS (test code=EPIU) per HPF Few UA BACTERIA (test code=BACU) per HPF NONE Urine Source? Clean CatchDRUGS OF ABUSE SCREEN [id number] 21:26:00* Test Item Value Reference Range Comments URN COCAINE (test code=COCAURN) <300 ng/mL URN CANNABINOIDS (test code=CANNABURN) <50 ng/mL URN AMPHETAMINE (test code=AMPHETURN) <1000 ng/mL URN BARBITURATE (test code=BARBITURN) <200 ng/mL URN BENZODIAZEPINE (test code=BENZOURN) <200 ng/mL URN OPIATES (test code=OPIATURN) <300 ng/mL URN PHENCYCLIDINE (PCP) (test code=PHENCURN) <25 ng/mL URN METHADONE (test code=METHAURN) <300 ng/mL Urine Source? Clean [id number] 19:04:00* Test Item Value Reference Range Comments ACETAMINOPHEN (test code=ACET) < 10 mcg/mL 10-30 A RANGE OF 10-30 mcg/mL IS A THERAPEUTIC RANGE. TOXIC CONCENTRATIONS: >150 mcg/mL AT 4 HOURS AFTER INGESTION >=50 mcg/mL AT 12 HOURS AFTER INGESTION [id number] 19:04:00* Test Item Value Reference Range Comments SALICYLATE (test code=BARI) < 1.7 mg/dL 2.8-20.0 - CT HEAD/BRAIN W/O [id number] 18:14:00 Name: RENÉMIGUEL A CHIUN [facility] : 1980 Age/S: 38 / M [address] Unit #: [id number] Loc: [place] [address] Phys: Richie Bella MD Acct: [id number] Dis Date: Status: REG ER PHONE #: [phone] Exam Date: 08/01/2018 1631 FAX #: [phone] Reason: Altered Mental Status EXAMS: CPT CODE: [id number] CT HEAD/BRAIN W/O CONT 75722 REASON FOR EXAM: Altered Mental Status EXAM ORDER DATE: 08/01/2018 4:16 PM Ordering Mable: Richie Bella MD PROCEDURE: - CT HEAD/BRAIN W/O CONT COMPARISON: FINDINGS: CT images of the brain were obtained without IV contrast. Dose modulation, iterative reconstruction, and/or weight based adjustment of the MA/KV was utilized to reduce the radiation dose to as low as reasonably achievable. The brain parenchyma is within normal limits. The echols-white matter delineation is unremarkable. The ventricles, cisterns, and sulci are unremarkable. There is no evidence of hemorrhage, mass, mass effect. There is no evidence of acute or old infarct. The calvarium is intact. IMPRESSION: Unremarkable brain. Small focal soft tissue contusion the left periorbital region. at 1814 Reported and signed by: Gold Duong M.D. CC: Richie Bella MD Technologist:Ruthie Enamorado RT(R); Lashawn CTDI: DLP: Trnscb Date/Time: 08/01/2018 (1813) [email or web address] Orig Print D/T: S: 08/01/2018 (1816) PAGE 1 Signed Report BASIC METABOLIC [id number] 17:51:00* Test Item Value Reference Range Comments SODIUM (test code=NA) 135 mmol/L 136-145 POTASSIUM (test code=K) 3.8 mmol/L 3.5-5.1 CHLORIDE (test code=CL) 100.0 mmol/L 98-107 CARBON DIOXIDE (test code=CO2) 24.0 mmol/L 21-32 ANION GAP (test code=GAP) 14.8 10-20 GLUCOSE (test code=GLU) 118 mg/dL 74-106 BLOOD UREA NITROGEN (test code=BUN) 9 mg/dL 7-18 GLOMERULAR FILTRATION RATE (test code=GFR) > 60 mL/min >=60 Estimated GFR by using Modified MDRD formula.Chronic kidney disease is defined as either kidney damageor GFR <60 mL/min/1.73 m2 for >3 months. CREATININE (test code=CREAT) 0.97 mg/dL 0.7-1.3 BUN/CREATININE RATIO (test code=BUN/CREA) 9.3 10-20 CALCIUM (test code=CA) 8.7 mg/dL 8.5-10.1 HEPATIC FUNCTION [id number] 17:51:00* Test Item Value Reference Range Comments TOTAL PROTEIN (test code=PROT) 7.0 gram/dL 6.4-8.2 ALBUMIN (test code=ALB) 3.3 g/dL 3.4-5.0 GLOBULIN (test code=GLOB) 3.7 gram/dL 2.7-4.2 ALBUMIN/GLOBULIN RATIO (test code=A/G) 0.9 0.75-1.50 BILIRUBIN TOTAL (test code=BILT) 0.60 mg/dL 0.0-1.0 BILIRUBIN DIRECT (test code=BILD) 0.29 mg/dL 0.0-0.20 SGOT/AST (test code=AST) 71 IUnit/L 15-37 SGPT/ALT (test code=ALT) 64 IUnit/L 12-78 ALKALINE PHOSPHATASE TOTAL (test code=ALKP) 140 IUnit/L 45-117 Note change in reference range due to change in reagent. [id number] 17:51:00* Test Item Value Reference Range Comments TROPONIN-I (test code=TROPI) <0.015 ng/mL 0-0.045 [id number] 17:51:00* Test Item Value Reference Range Comments ALCOHOL (test code=ALC) 134 mg/dL 0.0-3.0 INTERPRETIVE DATA NOTE: POSITIVE SCREENING RESULTS SHOULD BE CONSIDERED PRESUMPTIVE.WHEN COLLECTED FOR MEDICAL PURPOSES ONLY. SPECIMEN WILL NOTBE COLLECTED BY CHAIN OF CUSTODY.IF A CONFIRMATION OF POSITIVE RESULTS IS DESIRED, ACONFIRMATION TEST MUST BE REQUESTED BY THE PHYSICIAN AT ANADDITIONAL CHARGE TO THE PATIENT. BASIC METABOLIC [id number] 17:43:00* Test Item Value Reference Range Comments SODIUM (test code=NA) 135 mmol/L 136-145 POTASSIUM (test code=K) 3.8 mmol/L 3.5-5.1 CHLORIDE (test code=CL) 100.0 mmol/L 98-107 CARBON DIOXIDE (test code=CO2) 24.0 mmol/L 21-32 ANION GAP (test code=GAP) 14.8 10-20 GLUCOSE (test code=GLU) 118 mg/dL 74-106 BLOOD UREA NITROGEN (test code=BUN) 9 mg/dL 7-18 GLOMERULAR FILTRATION RATE (test code=GFR) > 60 mL/min >=60 Estimated GFR by using Modified MDRD formula.Chronic kidney disease is defined as either kidney damageor GFR <60 mL/min/1.73 m2 for >3 months. CREATININE (test code=CREAT) 0.97 mg/dL 0.7-1.3 BUN/CREATININE RATIO (test code=BUN/CREA) 9.3 10-20 CALCIUM (test code=CA) 8.7 mg/dL 8.5-10.1 HEPATIC FUNCTION [id number] 17:43:00* Test Item Value Reference Range Comments TOTAL PROTEIN (test code=PROT) 7.0 gram/dL 6.4-8.2 ALBUMIN (test code=ALB) 3.3 g/dL 3.4-5.0 GLOBULIN (test code=GLOB) 3.7 gram/dL 2.7-4.2 ALBUMIN/GLOBULIN RATIO (test code=A/G) 0.9 0.75-1.50 BILIRUBIN TOTAL (test code=BILT) 0.60 mg/dL 0.0-1.0 BILIRUBIN DIRECT (test code=BILD) 0.29 mg/dL 0.0-0.20 SGOT/AST (test code=AST) 71 IUnit/L 15-37 SGPT/ALT (test code=ALT) 64 IUnit/L 12-78 ALKALINE PHOSPHATASE TOTAL (test code=ALKP) IUnit/L 45-117 [id number] 17:43:00* Test Item Value Reference Range Comments TROPONIN-I (test code=TROPI) ng/mL 0-0.045 [id number] 17:43:00* Test Item Value Reference Range Comments ALCOHOL (test code=ALC) mg/dL 0-3 BASIC METABOLIC [id number] 17:32:00* Test Item Value Reference Range Comments SODIUM (test code=NA) 135 mmol/L 136-145 POTASSIUM (test code=K) 3.8 mmol/L 3.5-5.1 CHLORIDE (test code=CL) 100.0 mmol/L 98-107 CARBON DIOXIDE (test code=CO2) mmol/L 21-32 ANION GAP (test code=GAP) 10-20 GLUCOSE (test code=GLU) mg/dL 74-106 BLOOD UREA NITROGEN (test code=BUN) mg/dL 7-18 GLOMERULAR FILTRATION RATE (test code=GFR) mL/min >=60 CREATININE (test code=CREAT) mg/dL 0.7-1.3 BUN/CREATININE RATIO (test code=BUN/CREA) 10-20 CALCIUM (test code=CA) mg/dL 8.5-10.1 HEPATIC FUNCTION [id number] 17:32:00* Test Item Value Reference Range Comments TOTAL PROTEIN (test code=PROT) gram/dL 6.4-8.2 ALBUMIN (test code=ALB) g/dL 3.4-5.0 GLOBULIN (test code=GLOB) gram/dL 2.7-4.2 ALBUMIN/GLOBULIN RATIO (test code=A/G) 0.75-1.50 BILIRUBIN TOTAL (test code=BILT) mg/dL 0.0-1.0 BILIRUBIN DIRECT (test code=BILD) mg/dL 0.0-0.20 SGOT/AST (test code=AST) IUnit/L 15-37 SGPT/ALT (test code=ALT) IUnit/L 12-78 ALKALINE PHOSPHATASE TOTAL (test code=ALKP) IUnit/L 45-117 [id number] 17:32:00* Test Item Value Reference Range Comments TROPONIN-I (test code=TROPI) ng/mL 0-0.045 [id number] 17:32:00* Test Item Value Reference Range Comments ALCOHOL (test code=ALC) mg/dL 0-3 CBC W/AUTO [id number] 16:58:00* Test Item Value Reference Range Comments WHITE BLOOD CELL (test code=WBC) 8.0 K/mm3 4.5-12.5 RED BLOOD CELL (test code=RBC) 3.06 mill/mm3 4.0-5.8 HEMOGLOBIN (test code=HGB) 9.1 gram/dL 13.0-17.5 HEMATOCRIT (test code=HCT) 28.2 % 42.0-52.0 MEAN CELL VOLUME (test code=MCV) 92.2 fL 80-98 MEAN CELL HGB (test code=MCH) 29.7 picogram 27.0-33.0 MEAN CELL HGB CONCETRATION (test code=MCHC) 32.3 gram/dL 33.0-36.0 RED CELL DISTRIBUTION WIDTH (test code=RDW) 13.9 % 11.6-16.2 RED CELL DISTRIBUTION WIDTH SD (test code=RDW-SD) 46.4 fL 37.0-51.0 PLATELET COUNT (test code=PLT) 398 K/mm3 150-450 MEAN PLATELET VOLUME (test code=MPV) 8.3 fL 6.7-11.0 NEUTROPHIL % (test code=NT%) 53.9 % 39.0-69.0 IMMATURE GRANULOCYTE % (test code=IG%) 0.9 % 0.0-5.0 LYMPHOCYTE % (test code=LY%) 30.2 % 25.0-55.0 MONOCYTE % (test code=MO%) 8.5 % 0.0-10.0 EOSINOPHIL % (test code=EO%) 5.1 % 0.0-5.0 BASOPHIL % (test code=BA%) 1.4 % 0.0-1.0 NUCLEATED RBC % (test code=NRBC%) 0.0 % 0-0 NEUTROPHIL # (test code=NT#) 4.31 K/mm3 1.8-7.7 IMMATURE GRANULOCYTE # (test code=IG#) 0.07 x10 3/uL 0-0.03 LYMPHOCYTE # (test code=LY#) 2.41 K/mm3 1.0-5.0 MONOCYTE # (test code=MO#) 0.68 K/mm3 0-0.8 EOSINOPHIL # (test code=EO#) 0.41 K/mm3 0.0-0.5 BASOPHIL # (test code=BA#) 0.11 K/mm3 0.0-0.2 NUCLEATED RBC # (test code=NRBC#) 0.00 K/mm3 0.0-0.1 BASIC METABOLIC [id number] 02:20:00* Test Item Value Reference Range Comments SODIUM (test code=NA) 135 mmol/L 136-145 POTASSIUM (test code=K) 4.0 mmol/L 3.5-5.1 CHLORIDE (test code=CL) 99.0 mmol/L 98-107 CARBON DIOXIDE (test code=CO2) 27.0 mmol/L 21-32 ANION GAP (test code=GAP) 13.0 10-20 GLUCOSE (test code=GLU) 137 mg/dL 74-106 BLOOD UREA NITROGEN (test code=BUN) 7 mg/dL 7-18 GLOMERULAR FILTRATION RATE (test code=GFR) > 60 mL/min >=60 Estimated GFR by using Modified MDRD formula.Chronic kidney disease is defined as either kidney damageor GFR <60 mL/min/1.73 m2 for >3 months. CREATININE (test code=CREAT) 0.90 mg/dL 0.7-1.3 BUN/CREATININE RATIO (test code=BUN/CREA) 7.8 10-20 CALCIUM (test code=CA) 9.2 mg/dL 8.5-10.1 BASIC METABOLIC [id number] 02:14:00* Test Item Value Reference Range Comments SODIUM (test code=NA) 135 mmol/L 136-145 POTASSIUM (test code=K) 4.0 mmol/L 3.5-5.1 CHLORIDE (test code=CL) 99.0 mmol/L 98-107 CARBON DIOXIDE (test code=CO2) mmol/L 21-32 ANION GAP (test code=GAP) 10-20 GLUCOSE (test code=GLU) mg/dL 74-106 BLOOD UREA NITROGEN (test code=BUN) mg/dL 7-18 GLOMERULAR FILTRATION RATE (test code=GFR) mL/min >=60 CREATININE (test code=CREAT) mg/dL 0.7-1.3 BUN/CREATININE RATIO (test code=BUN/CREA) 10-20 CALCIUM (test code=CA) mg/dL 8.5-10.1 CBC W/AUTO [id number] 02:13:00* Test Item Value Reference Range Comments WHITE BLOOD CELL (test code=WBC) 8.0 K/mm3 4.5-12.5 RED BLOOD CELL (test code=RBC) 3.38 mill/mm3 4.0-5.8 HEMOGLOBIN (test code=HGB) 9.9 gram/dL 13.0-17.5 HEMATOCRIT (test code=HCT) 30.7 % 42.0-52.0 MEAN CELL VOLUME (test code=MCV) 90.8 fL 80-98 MEAN CELL HGB (test code=MCH) 29.3 picogram 27.0-33.0 MEAN CELL HGB CONCETRATION (test code=MCHC) 32.2 gram/dL 33.0-36.0 RED CELL DISTRIBUTION WIDTH (test code=RDW) 13.5 % 11.6-16.2 RED CELL DISTRIBUTION WIDTH SD (test code=RDW-SD) 44.6 fL 37.0-51.0 PLATELET COUNT (test code=PLT) 471 K/mm3 150-450 MEAN PLATELET VOLUME (test code=MPV) 8.8 fL 6.7-11.0 NEUTROPHIL % (test code=NT%) 58.2 % 39.0-69.0 IMMATURE GRANULOCYTE % (test code=IG%) 0.8 % 0.0-5.0 LYMPHOCYTE % (test code=LY%) 26.8 % 25.0-55.0 MONOCYTE % (test code=MO%) 7.3 % 0.0-10.0 EOSINOPHIL % (test code=EO%) 5.4 % 0.0-5.0 BASOPHIL % (test code=BA%) 1.5 % 0.0-1.0 NUCLEATED RBC % (test code=NRBC%) 0.3 % 0-0 NEUTROPHIL # (test code=NT#) 4.67 K/mm3 1.8-7.7 IMMATURE GRANULOCYTE # (test code=IG#) 0.06 x10 3/uL 0-0.03 LYMPHOCYTE # (test code=LY#) 2.14 K/mm3 1.0-5.0 MONOCYTE # (test code=MO#) 0.58 K/mm3 0-0.8 EOSINOPHIL # (test code=EO#) 0.43 K/mm3 0.0-0.5 BASOPHIL # (test code=BA#) 0.12 K/mm3 0.0-0.2 NUCLEATED RBC # (test code=NRBC#) 0.02 K/mm3 0.0-0.1 MANUAL DIFF REQUIRED (test code=MDIFF) NO [id number] 21:39:00* Test Item Value Reference Range Comments GLUBED (test code=GLUBED) 146 mg/dL 74-106 Performed by certified auxiliary equipment operator at [facility] [id number] 14:34:00* Test Item Value Reference Range Comments GLYCOSYLATED HEMOGLOBIN (HA1C) (test code=GLYHGB) 6.3 % HbA1 4.8-6.0 ESTIMATED AVERAGE GLUCOSE (test code=EAG) 134 MG/DL [id number] 13:00:00* Test Item Value Reference Range Comments PHOSPHORUS (test code=PHOS) 3.8 mg/dL 2.5-4.9 [id number] 13:00:00* Test Item Value Reference Range Comments LIPASE (test code=LIP) 174 U/L 73.0-393.0 [id number] 13:00:00* Test Item Value Reference Range Comments MAGNESIUM (test code=MAG) 1.6 mg/dL 1.8-2.4 VITAMIN [id number] 13:00:00* Test Item Value Reference Range Comments VITAMIN B12 (test code=VITB12) 516 pg/mL 193-986 FOLIC [id number] 13:00:00* Test Item Value Reference Range Comments FOLIC ACID (test code=FOL) 18.5 ng/mL 3.10-17.50 [id number] 12:39:00* Test Item Value Reference Range Comments GLUBED (test code=GLUBED) 110 mg/dL 74-106 Performed by certified auxiliary equipment operator at [facility] [id number] 11:40:00* Test Item Value Reference Range Comments AMMONIA (test code=AMM) 28 umol/L 11-32 BASIC METABOLIC [id number] 10:37:00* Test Item Value Reference Range Comments SODIUM (test code=NA) 133 mmol/L 136-145 POTASSIUM (test code=K) 3.8 mmol/L 3.5-5.1 CHLORIDE (test code=CL) 99.0 mmol/L 98-107 CARBON DIOXIDE (test code=CO2) 25.0 mmol/L 21-32 ANION GAP (test code=GAP) 12.8 10-20 GLUCOSE (test code=GLU) 115 mg/dL 74-106 BLOOD UREA NITROGEN (test code=BUN) 6 mg/dL 7-18 GLOMERULAR FILTRATION RATE (test code=GFR) > 60 mL/min >=60 Estimated GFR by using Modified MDRD formula.Chronic kidney disease is defined as either kidney damageor GFR <60 mL/min/1.73 m2 for >3 months. CREATININE (test code=CREAT) 0.80 mg/dL 0.7-1.3 BUN/CREATININE RATIO (test code=BUN/CREA) 7.5 10-20 CALCIUM (test code=CA) 9.0 mg/dL 8.5-10.1 HEPATIC FUNCTION [id number] 10:37:00* Test Item Value Reference Range Comments TOTAL PROTEIN (test code=PROT) 7.9 gram/dL 6.4-8.2 ALBUMIN (test code=ALB) 3.8 g/dL 3.4-5.0 GLOBULIN (test code=GLOB) 4.1 gram/dL 2.7-4.2 ALBUMIN/GLOBULIN RATIO (test code=A/G) 0.9 0.75-1.50 BILIRUBIN TOTAL (test code=BILT) 0.70 mg/dL 0.0-1.0 BILIRUBIN DIRECT (test code=BILD) 0.33 mg/dL 0.0-0.20 SGOT/AST (test code=AST) 51 IUnit/L 15-37 SGPT/ALT (test code=ALT) 57 IUnit/L 12-78 ALKALINE PHOSPHATASE TOTAL (test code=ALKP) 137 IUnit/L 45-117 Note change in reference range due to change in reagent. CREATINE KINASE (CK)2018-07-31 10:37:00* Test Item Value Reference Range Comments CREATINE KINASE (CK) (test code=CK) 356 IUnit/L 26-208 THYROID STIMULATING [id number] 10:37:00* Test Item Value Reference Range Comments THYROID STIMULATING HORMONE (test code=TSH) 2.990 uIU/mL 0.36-3.74 TSH REFERENCE RANGES: EUTHYROID: 0.35 - 4.3 mIU/mL HYPO : > 5.5 mIU/mL HYPER : < 0.35 mIU/mL [id number] 10:37:00* Test Item Value Reference Range Comments TROPONIN-I (test code=TROPI) <0.015 ng/mL 0-0.045 [id number] 10:37:00* Test Item Value Reference Range Comments ACETAMINOPHEN (test code=ACET) < 10 mcg/mL 10-30 A RANGE OF 10-30 mcg/mL IS A THERAPEUTIC RANGE. TOXIC CONCENTRATIONS: >150 mcg/mL AT 4 HOURS AFTER INGESTION >=50 mcg/mL AT 12 HOURS AFTER INGESTION [id number] 10:37:00* Test Item Value Reference Range Comments SALICYLATE (test code=BARI) 5.9 mg/dL 2.8-20.0 [id number] 10:37:00* Test Item Value Reference Range Comments ALCOHOL (test code=ALC) < 3 mg/dL 0.0-3.0 INTERPRETIVE DATA NOTE: POSITIVE SCREENING RESULTS SHOULD BE CONSIDERED PRESUMPTIVE.WHEN COLLECTED FOR MEDICAL PURPOSES ONLY. SPECIMEN WILL NOTBE COLLECTED BY CHAIN OF CUSTODY.IF A CONFIRMATION OF POSITIVE RESULTS IS DESIRED, ACONFIRMATION TEST MUST BE REQUESTED BY THE PHYSICIAN AT ANADDITIONAL CHARGE TO THE PATIENT. URINALYSIS [id number] 10:37:00* Test Item Value Reference Range Comments UA COLOR (test code=COLU) COLORLESS YELLOW UA APPEARANCE (test code=APPU) CLEAR CLEAR UA GLUCOSE DIPSTICK (test code=DGLUU) NEGATIVE mg/dL NEGATIVE UA BILIRUBIN DIPSTICK (test code=BILU) NEGATIVE mg/dL NEGATIVE UA KETONE DIPSTICK (test code=KETU) NEGATIVE mg/dL NEGATIVE UA SPECIFIC GRAVITY (test code=SGU) 1.004 1.001-1.035 UA BLOOD DIPSTICK (test code=KILO) Negative mg/dL NEGATIVE UA PH DIPSTICK (test code=PRICILA) 6.0 5.0-8.0 UA PROTEIN DIPSTICK (test code=PROU) NEGATIVE mg/dL NEGATIVE UA UROBILINIOGEN DIPSTICK (test code=URO) Normal mg/dL NEGATIVE UA NITRITE DIPSTICK (test code=ELIOT) NEGATIVE NEGATIVE UA LEUKOCYTE ESTERASE W REFLEX (test code=LEUUR) NEGATIVE Teo/uL NEGATIVE UA WBC (test code=WBCU) 0-5 per HPF 0-5 Urine Source? Clean CatchDRUGS OF ABUSE SCREEN [id number] 10:37:00* Test Item Value Reference Range Comments URN COCAINE (test code=COCAURN) NEGATIVE <300 ng/mL URN CANNABINOIDS (test code=CANNABURN) NEGATIVE <50 ng/mL URN AMPHETAMINE (test code=AMPHETURN) NEGATIVE <1000 ng/mL URN BARBITURATE (test code=BARBITURN) NEGATIVE <200 ng/mL URN BENZODIAZEPINE (test code=BENZOURN) POSITIVE <200 ng/mL This test provides only a preliminary test result. A morespecific alternate chemical method must be used in order toobtain a confirmed analytical result. Gas chromatography/mass spectrometry (GC/MS) is thepreferred confirmatory method. Other chemical confirmationmethods are available. Clinical consideration and professional judgment should be applied to any drug of abusetest result, particularly when preliminary positive resultsare used.Unconfirmed screening results must not be used fornon-medical purposes (e.g., employment testing, legaltesting). URN OPIATES (test code=OPIATURN) NEGATIVE <300 ng/mL URN PHENCYCLIDINE (PCP) (test code=PHENCURN) NEGATIVE <25 ng/mL URN METHADONE (test code=METHAURN) NEGATIVE <300 ng/mL Urine Source? Clean CatchCBC W/AUTO [id number] 10:32:00* Test Item Value Reference Range Comments WHITE BLOOD CELL (test code=WBC) 11.1 K/mm3 4.5-12.5 RED BLOOD CELL (test code=RBC) 3.39 mill/mm3 4.0-5.8 HEMOGLOBIN (test code=HGB) 9.8 gram/dL 13.0-17.5 HEMATOCRIT (test code=HCT) 31.2 % 42.0-52.0 MEAN CELL VOLUME (test code=MCV) 92.0 fL 80-98 MEAN CELL HGB (test code=MCH) 28.9 picogram 27.0-33.0 MEAN CELL HGB CONCETRATION (test code=MCHC) 31.4 gram/dL 33.0-36.0 RED CELL DISTRIBUTION WIDTH (test code=RDW) 13.8 % 11.6-16.2 RED CELL DISTRIBUTION WIDTH SD (test code=RDW-SD) 45.9 fL 37.0-51.0 PLATELET COUNT (test code=PLT) 497 K/mm3 150-450 RESULT VERIFIED BY REPEAT ANALYSIS MEAN PLATELET VOLUME (test code=MPV) 9.2 fL 6.7-11.0 NEUTROPHIL % (test code=NT%) 68.4 % 39.0-69.0 IMMATURE GRANULOCYTE % (test code=IG%) 1.2 % 0.0-5.0 LYMPHOCYTE % (test code=LY%) 17.7 % 25.0-55.0 MONOCYTE % (test code=MO%) 8.5 % 0.0-10.0 EOSINOPHIL % (test code=EO%) 2.8 % 0.0-5.0 BASOPHIL % (test code=BA%) 1.4 % 0.0-1.0 NUCLEATED RBC % (test code=NRBC%) 0.3 % 0-0 NEUTROPHIL # (test code=NT#) 7.56 K/mm3 1.8-7.7 IMMATURE GRANULOCYTE # (test code=IG#) 0.13 x10 3/uL 0-0.03 LYMPHOCYTE # (test code=LY#) 1.96 K/mm3 1.0-5.0 MONOCYTE # (test code=MO#) 0.94 K/mm3 0-0.8 EOSINOPHIL # (test code=EO#) 0.31 K/mm3 0.0-0.5 BASOPHIL # (test code=BA#) 0.15 K/mm3 0.0-0.2 NUCLEATED RBC # (test code=NRBC#) 0.03 K/mm3 0.0-0.1 MANUAL DIFF REQUIRED (test code=MDIFF) NO CBC W/AUTO [id number] 10:31:00* Test Item Value Reference Range Comments WHITE BLOOD CELL (test code=WBC) 11.1 K/mm3 4.5-12.5 RED BLOOD CELL (test code=RBC) 3.39 mill/mm3 4.0-5.8 HEMOGLOBIN (test code=HGB) 9.8 gram/dL 13.0-17.5 HEMATOCRIT (test code=HCT) 31.2 % 42.0-52.0 MEAN CELL VOLUME (test code=MCV) 92.0 fL 80-98 MEAN CELL HGB (test code=MCH) 28.9 picogram 27.0-33.0 MEAN CELL HGB CONCETRATION (test code=MCHC) 31.4 gram/dL 33.0-36.0 RED CELL DISTRIBUTION WIDTH (test code=RDW) 13.8 % 11.6-16.2 RED CELL DISTRIBUTION WIDTH SD (test code=RDW-SD) 45.9 fL 37.0-51.0 PLATELET COUNT (test code=PLT) 497 K/mm3 150-450 RESULT VERIFIED BY REPEAT ANALYSIS MEAN PLATELET VOLUME (test code=MPV) 9.2 fL 6.7-11.0 NEUTROPHIL % (test code=NT%) 68.4 % 39.0-69.0 IMMATURE GRANULOCYTE % (test code=IG%) 1.2 % 0.0-5.0 LYMPHOCYTE % (test code=LY%) 17.7 % 25.0-55.0 MONOCYTE % (test code=MO%) 8.5 % 0.0-10.0 EOSINOPHIL % (test code=EO%) 2.8 % 0.0-5.0 BASOPHIL % (test code=BA%) 1.4 % 0.0-1.0 NUCLEATED RBC % (test code=NRBC%) 0.3 % 0-0 NEUTROPHIL # (test code=NT#) 7.56 K/mm3 1.8-7.7 IMMATURE GRANULOCYTE # (test code=IG#) 0.13 x10 3/uL 0-0.03 LYMPHOCYTE # (test code=LY#) 1.96 K/mm3 1.0-5.0 MONOCYTE # (test code=MO#) 0.94 K/mm3 0-0.8 EOSINOPHIL # (test code=EO#) 0.31 K/mm3 0.0-0.5 BASOPHIL # (test code=BA#) 0.15 K/mm3 0.0-0.2 NUCLEATED RBC # (test code=NRBC#) 0.03 K/mm3 0.0-0.1 BASIC METABOLIC [id number] 10:29:00* Test Item Value Reference Range Comments SODIUM (test code=NA) 133 mmol/L 136-145 POTASSIUM (test code=K) 3.8 mmol/L 3.5-5.1 CHLORIDE (test code=CL) 99.0 mmol/L 98-107 CARBON DIOXIDE (test code=CO2) mmol/L 21-32 ANION GAP (test code=GAP) 10-20 GLUCOSE (test code=GLU) mg/dL 74-106 BLOOD UREA NITROGEN (test code=BUN) mg/dL 7-18 GLOMERULAR FILTRATION RATE (test code=GFR) mL/min >=60 CREATININE (test code=CREAT) mg/dL 0.7-1.3 BUN/CREATININE RATIO (test code=BUN/CREA) 10-20 CALCIUM (test code=CA) mg/dL 8.5-10.1 HEPATIC FUNCTION [id number] 10:29:00* Test Item Value Reference Range Comments TOTAL PROTEIN (test code=PROT) gram/dL 6.4-8.2 ALBUMIN (test code=ALB) g/dL 3.4-5.0 GLOBULIN (test code=GLOB) gram/dL 2.7-4.2 ALBUMIN/GLOBULIN RATIO (test code=A/G) 0.75-1.50 BILIRUBIN TOTAL (test code=BILT) mg/dL 0.0-1.0 BILIRUBIN DIRECT (test code=BILD) mg/dL 0.0-0.20 SGOT/AST (test code=AST) IUnit/L 15-37 SGPT/ALT (test code=ALT) IUnit/L 12-78 ALKALINE PHOSPHATASE TOTAL (test code=ALKP) IUnit/L 45-117 CREATINE KINASE (CK)2018-07-31 10:29:00* Test Item Value Reference Range Comments CREATINE KINASE (CK) (test code=CK) IUnit/L 26-208 THYROID STIMULATING [id number] 10:29:00* Test Item Value Reference Range Comments THYROID STIMULATING HORMONE (test code=TSH) uIU/mL 0.36-3.74 [id number] 10:29:00* Test Item Value Reference Range Comments TROPONIN-I (test code=TROPI) ng/mL 0-0.045 [id number] 10:29:00* Test Item Value Reference Range Comments ACETAMINOPHEN (test code=ACET) mcg/mL 10-30 [id number] 10:29:00* Test Item Value Reference Range Comments SALICYLATE (test code=BARI) mg/dL 2.8-20.0 [id number] 10:29:00* Test Item Value Reference Range Comments ALCOHOL (test code=ALC) mg/dL 0-3 PROTHROMBIN [id number] 10:23:00* Test Item Value Reference Range Comments PROTHROMBIN TIME PATIENT (test code=PTP) 12.5 seconds 9.0-14.0 INTERNATIONAL NORMAL RATIO (test code=INR) 1.1 0.8-1.2 The therapeutic range for oral anticoagulant therapy formost indications is an international normalized ratio (INR)of between 2.0 and 3.0. The recommended therapeutic INRrange for various clinical situations is listed below: Clinical Situation INR range Pulmonary e mbolism treatment (2.0-3.0)Venous thrombosis treatmentVenous thrombosis prophylaxis (high risk surgery)Prevention of systemic embolism from: Acute myocardial infarction Valvular heart disease Atrial fibrillation Mechanical prosthetic heart valves (2.5-3.5) IS PATIENT ON ANTICOAGULANTS? NTHROMBOPLASTIN TIME [id number] 10:23:00* Test Item Value Reference Range Comments THROMBOPLASTIN TIME PARTIAL (test code=PTT) 30.4 seconds 25.0-36.5 IS PATIENT ON ANTICOAGULANTS? NURINALYSIS [id number] 09:44:00* Test Item Value Reference Range Comments UA COLOR (test code=COLU) COLORLESS YELLOW UA APPEARANCE (test code=APPU) CLEAR CLEAR UA GLUCOSE DIPSTICK (test code=DGLUU) NEGATIVE mg/dL NEGATIVE UA BILIRUBIN DIPSTICK (test code=BILU) NEGATIVE mg/dL NEGATIVE UA KETONE DIPSTICK (test code=KETU) NEGATIVE mg/dL NEGATIVE UA SPECIFIC GRAVITY (test code=SGU) 1.004 1.001-1.035 UA BLOOD DIPSTICK (test code=KILO) Negative mg/dL NEGATIVE UA PH DIPSTICK (test code=PRICILA) 6.0 5.0-8.0 UA PROTEIN DIPSTICK (test code=PROU) NEGATIVE mg/dL NEGATIVE UA UROBILINIOGEN DIPSTICK (test code=URO) Normal mg/dL NEGATIVE UA NITRITE DIPSTICK (test code=ELIOT) NEGATIVE NEGATIVE UA LEUKOCYTE ESTERASE W REFLEX (test code=LEUUR) NEGATIVE Teo/uL NEGATIVE UA WBC (test code=WBCU) 0-5 per HPF 0-5 Urine Source? Clean CatchDRUGS OF ABUSE SCREEN [id number] 09:44:00* Test Item Value Reference Range Comments URN COCAINE (test code=COCAURN) <300 ng/mL URN CANNABINOIDS (test code=CANNABURN) <50 ng/mL URN AMPHETAMINE (test code=AMPHETURN) <1000 ng/mL URN BARBITURATE (test code=BARBITURN) <200 ng/mL URN BENZODIAZEPINE (test code=BENZOURN) <200 ng/mL URN OPIATES (test code=OPIATURN) <300 ng/mL URN PHENCYCLIDINE (PCP) (test code=PHENCURN) <25 ng/mL URN METHADONE (test code=METHAURN) <300 ng/mL Urine Source? Clean CatchURINALYSIS [id number] 09:40:00* Test Item Value Reference Range Comments UA COLOR (test code=COLU) COLORLESS YELLOW UA APPEARANCE (test code=APPU) CLEAR CLEAR UA GLUCOSE DIPSTICK (test code=DGLUU) NEGATIVE mg/dL NEGATIVE UA BILIRUBIN DIPSTICK (test code=BILU) NEGATIVE mg/dL NEGATIVE UA KETONE DIPSTICK (test code=KETU) NEGATIVE mg/dL NEGATIVE UA SPECIFIC GRAVITY (test code=SGU) 1.004 1.001-1.035 UA BLOOD DIPSTICK (test code=KILO) Negative mg/dL NEGATIVE UA PH DIPSTICK (test code=PRICILA) 6.0 5.0-8.0 UA PROTEIN DIPSTICK (test code=PROU) NEGATIVE mg/dL NEGATIVE UA UROBILINIOGEN DIPSTICK (test code=URO) Normal mg/dL NEGATIVE UA NITRITE DIPSTICK (test code=ELIOT) NEGATIVE NEGATIVE UA LEUKOCYTE ESTERASE W REFLEX (test code=LEUUR) NEGATIVE Teo/uL NEGATIVE UA WBC (test code=WBCU) per HPF 0-5 UA RBC (test code=RBCU) per HPF 0-5 UA EPITHELIAL CELLS (test code=EPIU) per HPF Few UA BACTERIA (test code=BACU) per HPF NONE Urine Source? Clean CatchDRUGS OF ABUSE SCREEN [id number] 09:40:00* Test Item Value Reference Range Comments URN COCAINE (test code=COCAURN) <300 ng/mL URN CANNABINOIDS (test code=CANNABURN) <50 ng/mL URN AMPHETAMINE (test code=AMPHETURN) <1000 ng/mL URN BARBITURATE (test code=BARBITURN) <200 ng/mL URN BENZODIAZEPINE (test code=BENZOURN) <200 ng/mL URN OPIATES (test code=OPIATURN) <300 ng/mL URN PHENCYCLIDINE (PCP) (test code=PHENCURN) <25 ng/mL URN METHADONE (test code=METHAURN) <300 ng/mL Urine Source? Clean Catch- XR CHEST 1 [id number] 09:23:00 FAX: Trista Velásquez MD [phone] [place]: St: REG Name: LESVIA MCCLELLAN [facility] : [birth year] 81 Age/S: 38/M [address] [facility] Unit #: [id number] Loc: [place] [address] Phys: Trista Velásquez MD Acct: [id number] Dis Date: Status: REG ER PHONE #: [phone] Exam Date: 07/31/2018 09 FAX #: [phone] Reason: Altered Mental Status EXAMS: CPT CODE: [id number] XR CHEST 1 V 00652 HISTORY: Confusion. COMPARISON: July 30, 2018. No acute infiltrates, effusion or conge stion is noted. The cardiac and mediastinal silhouette are within normal limits. IMPRESSION: No acute infiltra madalyn, effusion or congestion. at 0923 Reported and signed by: Dawson Gutierres M.D. CC: Trista Velásquez MD Technologist: LOUISA AGEE JR Trnscrd Date/Time/By: 07/31/2018 (922) : By: [email or web address] Orig Print D/T: S: 07/31/2018 (3280) PAGE 1 Signed Report ETHYLENE [id number] 19:06:00* Test Item Value Reference Range Comments ETHYLENE GLYCOL (test code=ETHGLY) NON DETECTED mcg/mL NonDetected Test performed by: [employer]. [address] [place] [id number]. Administrative Assistant Data Entry: Isaias Meyer, Ph.D.RESULTS CALLED BY SAUNDRA JenningsLAB.[facility] 07/30/18 1906Reference Range:Toxic Blood Level: >300 ug/ml [id number] 15:42:00* Test Item Value Reference Range Comments TROPONIN-I (test code=TROPI) <0.015 ng/mL 0-0.045 COMMENTS TO [employer] MANAGER: COLLECT 3 HOURS AFTER PREVIOUS SAMPLEOSMOLALITY [id number] 11:50:00* Test Item Value Reference Range Comments OSMOLALITY SERUM (test code=OSMO) 342 mOsm/kg 275-295 [id number] 11:04:00* Test Item Value Reference Range Comments ALCOHOL (test code=ALC) 160 mg/dL 0.0-3.0 INTERPRETIVE DATA NOTE: POSITIVE SCREENING RESULTS SHOULD BE CONSIDERED PRESUMPTIVE.WHEN COLLECTED FOR MEDICAL PURPOSES ONLY. SPECIMEN WILL NOTBE COLLECTED BY CHAIN OF CUSTODY.IF A CONFIRMATION OF POSITIVE RESULTS IS DESIRED, ACONFIRMATION TEST MUST BE REQUESTED BY THE PHYSICIAN AT ANADDITIONAL CHARGE TO THE PATIENT. - CT C-SPINE W/O [id number] 10:52:00 [facility] 1980 Age[facility]S: 38 / M [address] [facility] Unit #: [id number] Loc: [place] [address] Phys: Mitzi Molina DO Acct: [id number] Dis Date: Status: REG ER PHONE #: [phone] Exam Date: 07/30/2018 1026 FAX #: [phone] Reason: Neck Pain EXAMS: CPT CODE: [id number] CT C-SPINE W/O CONTRAST 34370 HISTORY: Neck pain. COMPARISON: July 18, 2018. CT cervical spine without contrast: Automated exposure control. No acute fracture of the cervical spine. No prevertebral soft tissue swelling is noted. Scattered posterior marginal disc osteophytes. No significant canal or foraminal stenosis. Thyroid glands are unremarkable. Esophageal wall is not thickened. Superior mediastinum is unremarkable. Lung apices are clear. Anatomic alignment. Vertebral body heights are maintained. Disc spaces are preserv ed. Uncovertebral joints are preserved as well. Nondisplaced fract ure of the lateral margin of the left sternum at the level of the sternocl avicular junction. IMPRESSION: No acute fractu re of the cervical spine. Anatomic alignment. Vertebral body heights are maintained. Nondisplaced vertical fracture through the lateral margin of the left sternum at the sternoclavicular junction. at 1052 Reported and signed by: Dawson Gutierres M.D. CC: Mitzi Molina DO Technologist:ALTAF ARMENDARIZ RT (Deshawn),CT CTDI: DLP: Trnscb Date/Time: 07/30/2018 (1052) t.MARCIER. TH4 Orig Print D/T: S: 07/30/2018 (8887) PAGE 1 Signed Report - CT HEAD/BRAIN W/O [id number] 10:45:00 Name: LESVIA RUSSO [facility] : 1980 Age/S: 38 / M [address] [facility] Unit #: [id number] Loc: [place] [address] Phys: Mitzi Molina DO Acct: [id number] Dis Date: Status: REG ER PHONE #: [phone] Exam Date: 07/30/2018 1026 FAX #: [phone] Reason: HEADACHE EXAMS: CPT CODE: [id number] CT HEAD/BRAIN W/O CONT 06722 HISTORY: Headache. COMPARISON: July 29, 2018. CT brain without contrast: Automated exposure control. No acute intracranial bleeds or extra-axial collections and there is no acute territorial vascular infarction. Resolved septum pellucidum hemorrhage from multiple previous examination with mild thickening. The echols- white matter differentiation is preserved. The sulci, gyri, ventricles and subarachnoid spaces and the basilar cisterns are normal for patient's age. No herniation or hydrocephalus or midline shift is noted. Fourth ventricle remains midline. Portions of the visualized paranasal sinuses are unremarkable. No obvious bony calvarial defect is noted. Left preorbital and right superior frontal scalp swelling without subjacent fracture. IMPRESSION: No acute intracranial bleeds or extra-axial collections. No acute territorial vascular infarction. No herniation or hydrocephalus or midline shift. at 1045 Reported and signed by: Dawson Gutierres M.D. CC: Mitzi Molina DO Technologist:ALTAF ARMENDARIZ RT(R),CT CTDI: DLP: Trnscb Date/Time: 07/30/2018 (1328) t.SDR.TH4 Orig Print D/T: S: 07/30/2018 (1040) PAGE 1 Signed Report DRUGS OF ABUSE SCREEN [id number] 10:37:00* Test Item Value Reference Range Comments URN COCAINE (test code=COCAURN) NEGATIVE NEGATIVE URN CANNABINOIDS (test code=CANNABURN) NEGATIVE NEGATIVE URN AMPHETAMINE (test code=AMPHETURN) NEGATIVE NEGATIVE URN BARBITURATE (test code=BARBITURN) NEGATIVE NEGATIVE URN BENZODIAZEPINE (test code=BENZOURN) POSITIVE NEGATIVE URN OPIATES (test code=OPIATURN) NEGATIVE NEGATIVE URN PHENCYCLIDINE (PCP) (test code=PHENCURN) NEGATIVE NEGATIVE LACTIC [id number] 09:56:00* Test Item Value Reference Range Comments LACTIC ACID (test code=LACT) 1.8 MMOL/L 0.4-1.9 [id number] 09:33:00* Test Item Value Reference Range Comments ACETAMINOPHEN (test code=ACET) < 10 mcg/mL 0-30 A RANGE OF 10-30 UG/ML IS A THERAPEUTIC RANGE. TOXIC CONCENTRATIONS: >150 UG/ML AFTER 4 HOURS OF INGESTION > 50 UG/ML AFTER 12 HOURS OF INGESTION [id number] 09:33:00* Test Item Value Reference Range Comments SALICYLATE (test code=BARI) 1.3 mg/dL 2.8-20.0 BASIC METABOLIC [id number] 09:28:00* Test Item Value Reference Range Comments SODIUM (test code=NA) 139 mmol/L 136-145 POTASSIUM (test code=K) 3.4 mmol/L 3.5-5.1 CHLORIDE (test code=CL) 100 mmol/L 101-109 CARBON DIOXIDE (test code=CO2) 25.5 mmol/L 21-32 ANION GAP (test code=GAP) 17 mmol/L 10-20 GLUCOSE (test code=GLU) 179 mg/dL 74-106 BLOOD UREA NITROGEN (test code=BUN) 6 mg/dL 3-21 GLOMERULAR FILTRATION RATE (test code=GFR) > 60 mL/min >=60 Estimated GFR by using Modified MDRD formula.Chronic kidney disease is defined as either kidney damageor GFR <60 mL/min/1.73 m2 for >3 months. CREATININE (test code=CREAT) 0.90 mg/dL 0.55-1.3 BUN/CREATININE RATIO (test code=BUN/CREA) 6.7 10-20 CALCIUM (test code=CA) 8.3 mg/dL 8.4-10.2 HEPATIC FUNCTION [id number] 09:28:00* Test Item Value Reference Range Comments TOTAL PROTEIN (test code=PROT) 8.2 g/dL 6.5-8.4 ALBUMIN (test code=ALB) 4.0 g/dL 3.4-4.8 GLOBULIN (test code=GLOB) 4.2 G/DL 1-10 ALBUMIN/GLOBULIN RATIO (test code=A/G) 0.95 RATIO 0.75-1.50 BILIRUBIN TOTAL (test code=BILT) 0.70 mg/dL 0.0-1.0 BILIRUBIN DIRECT (test code=BILD) 0.40 mg/dL 0.0-0.30 SGOT/AST (test code=AST) 62 U/L 6-32 SGPT/ALT (test code=ALT) 64 U/L 12-78 Note: Change in REFERENCE RANGE due to new reagent method. ALKALINE PHOSPHATASE TOTAL (test code=ALKP) 158 U/L 38-126 [id number] 09:28:00* Test Item Value Reference Range Comments LIPASE (test code=LIP) 258 U/L 128-270 [id number] 09:28:00* Test Item Value Reference Range Comments MAGNESIUM (test code=MAG) 1.9 mg/dL 1.6-2.3 [id number] 09:28:00* Test Item Value Reference Range Comments TROPONIN-I (test code=TROPI) <0.015 ng/mL 0.00-0.056 PROTHROMBIN [id number] 09:27:00* Test Item Value Reference Range Comments PROTHROMBIN TIME PATIENT (test code=PTP) 10.3 seconds 9.0-13.0 INTERNATIONAL NORMAL RATIO (test code=INR) 1.0 0.8-1.2 The therapeutic range for oral anticoagulant therapy formost indications is an international normalized ratio (INR)of between 2.0 and 3.0. The recommended therapeutic INRrange for various clinical situations is listed below: Clinical Situation INR range Pulmonary e mbolism treatment (2.0-3.0)Venous thrombosis treatmentVenous thrombosis prophylaxis (high risk surgery)Prevention of systemic embolism from: Acute myocardial infarction Valvular heart disease Atrial fibrillation Mechanical prosthetic heart valves (2.5-3.5) IS PATIENT ON ANTICOAGULANTS? NTHROMBOPLASTIN TIME [id number] 09:27:00* Test Item Value Reference Range Comments THROMBOPLASTIN TIME PARTIAL (test code=PTT) 24.1 seconds 25.5-34.3 Therapeutic Range for patients on Heparin Therapy is 2 to2.5 times their baseline PTT level. IS PATIENT ON ANTICOAGULANTS? N- XR CHEST 1 [id number] 09:27:00 [facility] 1980 Age/S:38 /M [address] [facility] Unit#:[id number] Loc: [place] [address] Phys: Tony Molinamartin DO Dis Date: PHONE #: [phone] Status: REG ER FAX #: [phone] Exam Date: 07/30/2018 Re ason: CHEST PAIN EXAMS: CPT CODE: [id number] XR CHEST 1 V 59105 HISTORY: Chest pain. C OMPARISON: July 30, 2018. No acute infiltrates, effusion or conges tion is noted. Suboptimal inspiration. Mild cardiomegaly. IMPRESSION: No acute infiltrates, effusion or congestion. at 0907 Reported and signed by: Dawson Gutierres M.D. CC: Mitzi Molina DO Technologist: ALTAF ARMENDARIZ, RT(R),CT Trnscrpt Data: 07/30/2018 (926) t.SDR.TH4 Orig Print D/T: S: 07/30/2018 (0532) PAGE 1 Signed Report CBC W/O [id number] 09:25:00* Test Item Value Reference Range Comments WHITE BLOOD CELL (test code=WBC) 9.9 K/mm3 4.5-12.5 RED BLOOD CELL (test code=RBC) 3.48 mill/mm3 4.0-5.8 HEMOGLOBIN (test code=HGB) 10.3 gram/dL 13.0-17.5 HEMATOCRIT (test code=HCT) 31.3 % 42.0-52.0 MEAN CELL VOLUME (test code=MCV) 89.9 fL 80-98 MEAN CELL HGB (test code=MCH) 29.6 picogram 27.0-33.0 MEAN CELL HGB CONCETRATION (test code=MCHC) 32.9 gram/dL 33.0-36.0 RED CELL DISTRIBUTION WIDTH (test code=RDW) 13.8 % 11.6-16.2 RED CELL DISTRIBUTION WIDTH SD (test code=RDW-SD) 45.8 fL 37.0-51.0 PLATELET COUNT (test code=PLT) 606 K/mm3 150-450 RESULT VERIFIED BY REPEAT ANALYSIS MEAN PLATELET VOLUME (test code=MPV) 8.9 fL 6.7-11.0 BASIC METABOLIC [id number] 09:22:00* Test Item Value Reference Range Comments SODIUM (test code=NA) 139 mmol/L 136-145 POTASSIUM (test code=K) 3.4 mmol/L 3.5-5.1 CHLORIDE (test code=CL) 100 mmol/L 101-109 CARBON DIOXIDE (test code=CO2) 25.5 mmol/L 21-32 ANION GAP (test code=GAP) 17 mmol/L 10-20 GLUCOSE (test code=GLU) 179 mg/dL 74-106 BLOOD UREA NITROGEN (test code=BUN) 6 mg/dL 3-21 GLOMERULAR FILTRATION RATE (test code=GFR) > 60 mL/min >=60 Estimated GFR by using Modified MDRD formula.Chronic kidney disease is defined as either kidney damageor GFR <60 mL/min/1.73 m2 for >3 months. CREATININE (test code=CREAT) 0.90 mg/dL 0.55-1.3 BUN/CREATININE RATIO (test code=BUN/CREA) 6.7 10-20 CALCIUM (test code=CA) 8.3 mg/dL 8.4-10.2 HEPATIC FUNCTION [id number] 09:22:00* Test Item Value Reference Range Comments TOTAL PROTEIN (test code=PROT) gram/dL 6.4-8.2 ALBUMIN (test code=ALB) g/dL 3.4-5.0 GLOBULIN (test code=GLOB) g/dL 2.7-4.2 ALBUMIN/GLOBULIN RATIO (test code=A/G) 0.75-1.50 BILIRUBIN TOTAL (test code=BILT) mg/dL 0.2-1.2 BILIRUBIN DIRECT (test code=BILD) mg/dL 0.0-0.20 SGOT/AST (test code=AST) IUnit/L 15-37 SGPT/ALT (test code=ALT) U/L 10-69 ALKALINE PHOSPHATASE TOTAL (test code=ALKP) IUnit/L 45-117 [id number] 09:22:00* Test Item Value Reference Range Comments LIPASE (test code=LIP) Unit/L 144-286 [id number] 09:22:00* Test Item Value Reference Range Comments MAGNESIUM (test code=MAG) mg/dL 1.8-2.4 [id number] 09:22:00* Test Item Value Reference Range Comments TROPONIN-I (test code=TROPI) ng/mL 0-0.045 [id number] 04:10:00* Test Item Value Reference Range Comments AMMONIA (test code=AMM) 48 umol/L 11-32 BASIC METABOLIC [id number] 03:27:00* Test Item Value Reference Range Comments SODIUM (test code=NA) 137 mmol/L 136-145 POTASSIUM (test code=K) 3.7 mmol/L 3.5-5.1 CHLORIDE (test code=CL) 102.0 mmol/L 98-107 CARBON DIOXIDE (test code=CO2) 20.0 mmol/L 21-32 ANION GAP (test code=GAP) 18.7 10-20 GLUCOSE (test code=GLU) 145 mg/dL 74-106 BLOOD UREA NITROGEN (test code=BUN) 7 mg/dL 7-18 GLOMERULAR FILTRATION RATE (test code=GFR) > 60 mL/min >=60 Estimated GFR by using Modified MDRD formula.Chronic kidney disease is defined as either kidney damageor GFR <60 mL/min/1.73 m2 for >3 months. CREATININE (test code=CREAT) 0.80 mg/dL 0.7-1.3 BUN/CREATININE RATIO (test code=BUN/CREA) 8.8 10-20 CALCIUM (test code=CA) 8.4 mg/dL 8.5-10.1 HEPATIC FUNCTION [id number] 03:27:00* Test Item Value Reference Range Comments TOTAL PROTEIN (test code=PROT) 7.2 gram/dL 6.4-8.2 ALBUMIN (test code=ALB) 3.7 g/dL 3.4-5.0 GLOBULIN (test code=GLOB) 3.5 gram/dL 2.7-4.2 ALBUMIN/GLOBULIN RATIO (test code=A/G) 1.1 0.75-1.50 BILIRUBIN TOTAL (test code=BILT) 0.60 mg/dL 0.0-1.0 BILIRUBIN DIRECT (test code=BILD) 0.32 mg/dL 0.0-0.20 SGOT/AST (test code=AST) 45 IUnit/L 15-37 SGPT/ALT (test code=ALT) 59 IUnit/L 12-78 ALKALINE PHOSPHATASE TOTAL (test code=ALKP) 154 IUnit/L 45-117 Note change in reference range due to change in reagent. CREATINE KINASE (CK)2018-07-30 03:27:00* Test Item Value Reference Range Comments CREATINE KINASE (CK) (test code=CK) 395 IUnit/L 26-208 THYROID STIMULATING [id number] 03:27:00* Test Item Value Reference Range Comments THYROID STIMULATING HORMONE (test code=TSH) 3.000 uIU/mL 0.36-3.74 TSH REFERENCE RANGES: EUTHYROID: 0.35 - 4.3 mIU/mL HYPO : > 5.5 mIU/mL HYPER : < 0.35 mIU/mL [id number] 03:27:00* Test Item Value Reference Range Comments TROPONIN-I (test code=TROPI) <0.015 ng/mL 0-0.045 [id number] 03:27:00* Test Item Value Reference Range Comments ACETAMINOPHEN (test code=ACET) < 10 mcg/mL 10-30 A RANGE OF 10-30 mcg/mL IS A THERAPEUTIC RANGE. TOXIC CONCENTRATIONS: >150 mcg/mL AT 4 HOURS AFTER INGESTION >=50 mcg/mL AT 12 HOURS AFTER INGESTION [id number] 03:27:00* Test Item Value Reference Range Comments SALICYLATE (test code=BARI) < 1.7 mg/dL 2.8-20.0 [id number] 03:27:00* Test Item Value Reference Range Comments ALCOHOL (test code=ALC) 112 mg/dL 0.0-3.0 INTERPRETIVE DATA NOTE: POSITIVE SCREENING RESULTS SHOULD BE CONSIDERED PRESUMPTIVE.WHEN COLLECTED FOR MEDICAL PURPOSES ONLY. SPECIMEN WILL NOTBE COLLECTED BY CHAIN OF CUSTODY.IF A CONFIRMATION OF POSITIVE RESULTS IS DESIRED, ACONFIRMATION TEST MUST BE REQUESTED BY THE PHYSICIAN AT ANADDITIONAL CHARGE TO THE PATIENT. BASIC METABOLIC [id number] 03:24:00* Test Item Value Reference Range Comments SODIUM (test code=NA) 137 mmol/L 136-145 POTASSIUM (test code=K) 3.7 mmol/L 3.5-5.1 CHLORIDE (test code=CL) 102.0 mmol/L 98-107 CARBON DIOXIDE (test code=CO2) 20.0 mmol/L 21-32 ANION GAP (test code=GAP) 18.7 10-20 GLUCOSE (test code=GLU) 145 mg/dL 74-106 BLOOD UREA NITROGEN (test code=BUN) 7 mg/dL 7-18 GLOMERULAR FILTRATION RATE (test code=GFR) > 60 mL/min >=60 Estimated GFR by using Modified MDRD formula.Chronic kidney disease is defined as either kidney damageor GFR <60 mL/min/1.73 m2 for >3 months. CREATININE (test code=CREAT) 0.80 mg/dL 0.7-1.3 BUN/CREATININE RATIO (test code=BUN/CREA) 8.8 10-20 CALCIUM (test code=CA) 8.4 mg/dL 8.5-10.1 HEPATIC FUNCTION [id number] 03:24:00* Test Item Value Reference Range Comments TOTAL PROTEIN (test code=PROT) 7.2 gram/dL 6.4-8.2 ALBUMIN (test code=ALB) 3.7 g/dL 3.4-5.0 GLOBULIN (test code=GLOB) 3.5 gram/dL 2.7-4.2 ALBUMIN/GLOBULIN RATIO (test code=A/G) 1.1 0.75-1.50 BILIRUBIN TOTAL (test code=BILT) 0.60 mg/dL 0.0-1.0 BILIRUBIN DIRECT (test code=BILD) 0.32 mg/dL 0.0-0.20 SGOT/AST (test code=AST) 45 IUnit/L 15-37 SGPT/ALT (test code=ALT) 59 IUnit/L 12-78 ALKALINE PHOSPHATASE TOTAL (test code=ALKP) 154 IUnit/L 45-117 Note change in reference range due to change in reagent. CREATINE KINASE (CK)2018-07-30 03:24:00* Test Item Value Reference Range Comments CREATINE KINASE (CK) (test code=CK) 395 IUnit/L 26-208 THYROID STIMULATING [id number] 03:24:00* Test Item Value Reference Range Comments THYROID STIMULATING HORMONE (test code=TSH) uIU/mL 0.36-3.74 [id number] 03:24:00* Test Item Value Reference Range Comments TROPONIN-I (test code=TROPI) <0.015 ng/mL 0-0.045 [id number] 03:24:00* Test Item Value Reference Range Comments ACETAMINOPHEN (test code=ACET) < 10 mcg/mL 10-30 A RANGE OF 10-30 mcg/mL IS A THERAPEUTIC RANGE. TOXIC CONCENTRATIONS: >150 mcg/mL AT 4 HOURS AFTER INGESTION >=50 mcg/mL AT 12 HOURS AFTER INGESTION [id number] 03:24:00* Test Item Value Reference Range Comments SALICYLATE (test code=BARI) < 1.7 mg/dL 2.8-20.0 [id number] 03:24:00* Test Item Value Reference Range Comments ALCOHOL (test code=ALC) 112 mg/dL 0.0-3.0 INTERPRETIVE DATA NOTE: POSITIVE SCREENING RESULTS SHOULD BE CONSIDERED PRESUMPTIVE.WHEN COLLECTED FOR MEDICAL PURPOSES ONLY. SPECIMEN WILL NOTBE COLLECTED BY CHAIN OF CUSTODY.IF A CONFIRMATION OF POSITIVE RESULTS IS DESIRED, ACONFIRMATION TEST MUST BE REQUESTED BY THE PHYSICIAN AT ANADDITIONAL CHARGE TO THE PATIENT. BASIC METABOLIC [id number] 03:16:00* Test Item Value Reference Range Comments SODIUM (test code=NA) 137 mmol/L 136-145 POTASSIUM (test code=K) 3.7 mmol/L 3.5-5.1 CHLORIDE (test code=CL) 102.0 mmol/L 98-107 CARBON DIOXIDE (test code=CO2) 20.0 mmol/L 21-32 ANION GAP (test code=GAP) 18.7 10-20 GLUCOSE (test code=GLU) 145 mg/dL 74-106 BLOOD UREA NITROGEN (test code=BUN) 7 mg/dL 7-18 GLOMERULAR FILTRATION RATE (test code=GFR) mL/min >=60 CREATININE (test code=CREAT) mg/dL 0.7-1.3 BUN/CREATININE RATIO (test code=BUN/CREA) 10-20 CALCIUM (test code=CA) 8.4 mg/dL 8.5-10.1 HEPATIC FUNCTION [id number] 03:16:00* Test Item Value Reference Range Comments TOTAL PROTEIN (test code=PROT) gram/dL 6.4-8.2 ALBUMIN (test code=ALB) 3.7 g/dL 3.4-5.0 GLOBULIN (test code=GLOB) gram/dL 2.7-4.2 ALBUMIN/GLOBULIN RATIO (test code=A/G) 0.75-1.50 BILIRUBIN TOTAL (test code=BILT) mg/dL 0.0-1.0 BILIRUBIN DIRECT (test code=BILD) mg/dL 0.0-0.20 SGOT/AST (test code=AST) IUnit/L 15-37 SGPT/ALT (test code=ALT) IUnit/L 12-78 ALKALINE PHOSPHATASE TOTAL (test code=ALKP) IUnit/L 45-117 CREATINE KINASE (CK)2018-07-30 03:16:00* Test Item Value Reference Range Comments CREATINE KINASE (CK) (test code=CK) IUnit/L 26-208 THYROID STIMULATING [id number] 03:16:00* Test Item Value Reference Range Comments THYROID STIMULATING HORMONE (test code=TSH) uIU/mL 0.36-3.74 [id number] 03:16:00* Test Item Value Reference Range Comments TROPONIN-I (test code=TROPI) ng/mL 0-0.045 [id number] 03:16:00* Test Item Value Reference Range Comments ACETAMINOPHEN (test code=ACET) mcg/mL 10-30 [id number] 03:16:00* Test Item Value Reference Range Comments SALICYLATE (test code=BARI) mg/dL 2.8-20.0 [id number] 03:16:00* Test Item Value Reference Range Comments ALCOHOL (test code=ALC) mg/dL 0-3 BASIC METABOLIC [id number] 03:11:00* Test Item Value Reference Range Comments SODIUM (test code=NA) 137 mmol/L 136-145 POTASSIUM (test code=K) 3.7 mmol/L 3.5-5.1 CHLORIDE (test code=CL) 102.0 mmol/L 98-107 CARBON DIOXIDE (test code=CO2) mmol/L 21-32 ANION GAP (test code=GAP) 10-20 GLUCOSE (test code=GLU) mg/dL 74-106 BLOOD UREA NITROGEN (test code=BUN) mg/dL 7-18 GLOMERULAR FILTRATION RATE (test code=GFR) mL/min >=60 CREATININE (test code=CREAT) mg/dL 0.7-1.3 BUN/CREATININE RATIO (test code=BUN/CREA) 10-20 CALCIUM (test code=CA) mg/dL 8.5-10.1 HEPATIC FUNCTION [id number] 03:11:00* Test Item Value Reference Range Comments TOTAL PROTEIN (test code=PROT) gram/dL 6.4-8.2 ALBUMIN (test code=ALB) g/dL 3.4-5.0 GLOBULIN (test code=GLOB) gram/dL 2.7-4.2 ALBUMIN/GLOBULIN RATIO (test code=A/G) 0.75-1.50 BILIRUBIN TOTAL (test code=BILT) mg/dL 0.0-1.0 BILIRUBIN DIRECT (test code=BILD) mg/dL 0.0-0.20 SGOT/AST (test code=AST) IUnit/L 15-37 SGPT/ALT (test code=ALT) IUnit/L 12-78 ALKALINE PHOSPHATASE TOTAL (test code=ALKP) IUnit/L 45-117 CREATINE KINASE (CK)2018-07-30 03:11:00* Test Item Value Reference Range Comments CREATINE KINASE (CK) (test code=CK) IUnit/L 26-208 THYROID STIMULATING [id number] 03:11:00* Test Item Value Reference Range Comments THYROID STIMULATING HORMONE (test code=TSH) uIU/mL 0.36-3.74 [id number] 03:11:00* Test Item Value Reference Range Comments TROPONIN-I (test code=TROPI) ng/mL 0-0.045 [id number] 03:11:00* Test Item Value Reference Range Comments ACETAMINOPHEN (test code=ACET) mcg/mL 10-30 [id number] 03:11:00* Test Item Value Reference Range Comments SALICYLATE (test code=BARI) mg/dL 2.8-20.0 [id number] 03:11:00* Test Item Value Reference Range Comments ALCOHOL (test code=ALC) mg/dL 0-3 URINALYSIS [id number] 02:06:00* Test Item Value Reference Range Comments UA COLOR (test code=COLU) Light-Yellow YELLOW UA APPEARANCE (test code=APPU) CLEAR CLEAR UA GLUCOSE DIPSTICK (test code=DGLUU) 30 (Trace) mg/dL NEGATIVE UA BILIRUBIN DIPSTICK (test code=BILU) NEGATIVE mg/dL NEGATIVE UA KETONE DIPSTICK (test code=KETU) NEGATIVE mg/dL NEGATIVE UA SPECIFIC GRAVITY (test code=SGU) 1.012 1.001-1.035 UA BLOOD DIPSTICK (test code=KILO) Negative mg/dL NEGATIVE UA PH DIPSTICK (test code=PRICILA) 6.0 5.0-8.0 UA PROTEIN DIPSTICK (test code=PROU) 30 (1+) mg/dL NEGATIVE UA UROBILINIOGEN DIPSTICK (test code=URO) Normal mg/dL NEGATIVE UA NITRITE DIPSTICK (test code=ELIOT) NEGATIVE NEGATIVE UA LEUKOCYTE ESTERASE W REFLEX (test code=LEUUR) NEGATIVE Teo/uL NEGATIVE UA WBC (test code=WBCU) 0-5 per HPF 0-5 UA RBC (test code=RBCU) 0-2 #/HPF 0-5 UA EPITHELIAL CELLS (test code=EPIU) None seen per HPF FEW UA BACTERIA (test code=BACU) MANY #/HPF NONE Urine Source? Clean CatchDRUGS OF ABUSE SCREEN [id number] 02:06:00* Test Item Value Reference Range Comments URN COCAINE (test code=COCAURN) NEGATIVE <300 ng/mL URN CANNABINOIDS (test code=CANNABURN) NEGATIVE <50 ng/mL URN AMPHETAMINE (test code=AMPHETURN) NEGATIVE <1000 ng/mL URN BARBITURATE (test code=BARBITURN) NEGATIVE <200 ng/mL URN BENZODIAZEPINE (test code=BENZOURN) POSITIVE <200 ng/mL This test provides only a preliminary test result. A morespecific alternate chemical method must be used in order toobtain a confirmed analytical result. Gas chromatography/mass spectrometry (GC/MS) is thepreferred confirmatory method. Other chemical confirmationmethods are available. Clinical consideration and professional judgment should be applied to any drug of abusetest result, particularly when preliminary positive resultsare used.Unconfirmed screening results must not be used fornon-medical purposes (e.g., employment testing, legaltesting). URN OPIATES (test code=OPIATURN) POSITIVE <300 ng/mL This test provides only a preliminary test result. A morespecific alternate chemical method must be used in order toobtain a confirmed analytical result. Gas chromatography/mass spectrometry (GC/MS) is thepreferred confirmatory method. Other chemical confirmationmethods are available. Clinical consideration and professional judgment should be applied to any drug of abusetest result, particularly when preliminary positive resultsare used.Unconfirmed screening results must not be used fornon-medical purposes (e.g., employment testing, legaltesting). URN PHENCYCLIDINE (PCP) (test code=PHENCURN) NEGATIVE <25 ng/mL URN METHADONE (test code=METHAURN) NEGATIVE <300 ng/mL Urine Source? Clean CatchURINALYSIS [id number] 01:47:00* Test Item Value Reference Range Comments UA COLOR (test code=COLU) Light-Yellow YELLOW UA APPEARANCE (test code=APPU) CLEAR CLEAR UA GLUCOSE DIPSTICK (test code=DGLUU) 30 (Trace) mg/dL NEGATIVE UA BILIRUBIN DIPSTICK (test code=BILU) NEGATIVE mg/dL NEGATIVE UA KETONE DIPSTICK (test code=KETU) NEGATIVE mg/dL NEGATIVE UA SPECIFIC GRAVITY (test code=SGU) 1.012 1.001-1.035 UA BLOOD DIPSTICK (test code=KILO) Negative mg/dL NEGATIVE UA PH DIPSTICK (test code=PRICILA) 6.0 5.0-8.0 UA PROTEIN DIPSTICK (test code=PROU) 30 (1+) mg/dL NEGATIVE UA UROBILINIOGEN DIPSTICK (test code=URO) Normal mg/dL NEGATIVE UA NITRITE DIPSTICK (test code=ELIOT) NEGATIVE NEGATIVE UA LEUKOCYTE ESTERASE W REFLEX (test code=LEUUR) NEGATIVE Teo/uL NEGATIVE UA WBC (test code=WBCU) 0-5 per HPF 0-5 UA RBC (test code=RBCU) 0-2 #/HPF 0-5 UA EPITHELIAL CELLS (test code=EPIU) None seen per HPF FEW UA BACTERIA (test code=BACU) MANY #/HPF NONE Urine Source? Clean CatchDRUGS OF ABUSE SCREEN [id number] 01:47:00* Test Item Value Reference Range Comments URN COCAINE (test code=COCAURN) <300 ng/mL URN CANNABINOIDS (test code=CANNABURN) <50 ng/mL URN AMPHETAMINE (test code=AMPHETURN) <1000 ng/mL URN BARBITURATE (test code=BARBITURN) <200 ng/mL URN BENZODIAZEPINE (test code=BENZOURN) <200 ng/mL URN OPIATES (test code=OPIATURN) <300 ng/mL URN PHENCYCLIDINE (PCP) (test code=PHENCURN) <25 ng/mL URN METHADONE (test code=METHAURN) <300 ng/mL Urine Source? Clean CatchCBC W/AUTO [id number] 01:46:00* Test Item Value Reference Range Comments WHITE BLOOD CELL (test code=WBC) 11.0 K/mm3 4.5-12.5 RED BLOOD CELL (test code=RBC) 3.22 mill/mm3 4.0-5.8 HEMOGLOBIN (test code=HGB) 9.4 gram/dL 13.0-17.5 HEMATOCRIT (test code=HCT) 29.3 % 42.0-52.0 MEAN CELL VOLUME (test code=MCV) 91.0 fL 80-98 MEAN CELL HGB (test code=MCH) 29.2 picogram 27.0-33.0 MEAN CELL HGB CONCETRATION (test code=MCHC) 32.1 gram/dL 33.0-36.0 RED CELL DISTRIBUTION WIDTH (test code=RDW) 13.8 % 11.6-16.2 RED CELL DISTRIBUTION WIDTH SD (test code=RDW-SD) 45.5 fL 37.0-51.0 PLATELET COUNT (test code=PLT) 535 K/mm3 150-450 MEAN PLATELET VOLUME (test code=MPV) 9.0 fL 6.7-11.0 NEUTROPHIL % (test code=NT%) 59.7 % 39.0-69.0 IMMATURE GRANULOCYTE % (test code=IG%) 1.6 % 0.0-5.0 LYMPHOCYTE % (test code=LY%) 25.6 % 25.0-55.0 MONOCYTE % (test code=MO%) 9.5 % 0.0-10.0 EOSINOPHIL % (test code=EO%) 2.5 % 0.0-5.0 BASOPHIL % (test code=BA%) 1.1 % 0.0-1.0 NUCLEATED RBC % (test code=NRBC%) 0.0 % 0-0 NEUTROPHIL # (test code=NT#) 6.55 K/mm3 1.8-7.7 IMMATURE GRANULOCYTE # (test code=IG#) 0.18 x10 3/uL 0-0.03 LYMPHOCYTE # (test code=LY#) 2.81 K/mm3 1.0-5.0 MONOCYTE # (test code=MO#) 1.04 K/mm3 0-0.8 EOSINOPHIL # (test code=EO#) 0.27 K/mm3 0.0-0.5 BASOPHIL # (test code=BA#) 0.12 K/mm3 0.0-0.2 NUCLEATED RBC # (test code=NRBC#) 0.00 K/mm3 0.0-0.1 MANUAL DIFF REQUIRED (test code=MDIFF) NO [id number] 01:09:00* Test Item Value Reference Range Comments GLUBED (test code=GLUBED) 99 mg/dL 74-106 Performed by certified auxiliary equipment operator at [facility] - CT HEAD/BRAIN W/O [id number] 00:46:00 Name: LESVIA RUSSO [facility] : 1980 Age/S: 38 / M [address] [facility] Unit #: [id number] Loc: [place] [address] Phys: Trista Velásquez MD Acct: [id number] Dis Date: Status: REG ER PHONE #: [phone] Exam Date: 07/29/2018 2340 FAX #: [phone] Reason: Altered Mental Status EXAMS: CPT CODE: [id number] CT HEAD/BRAIN W/O CONT 54641 EXAM: - CT HEAD/BRAIN W/O CONT HISTORY: AMS. Head injury. TECHNIQUE: Axial tomograms through the brain were obtained without intravenous contrast. This exam was performed according to our departmental dose-optimization program, which includes automated exposure control, adjustment of the mA and/or kV according to patient size and/or use of iterative reconstruction technique. COMPARISON: July 18, 2018. FINDINGS: There is no intracranial hemorrhage, mass, or mass effect. The v entricular system and sulci are age-appropriate. There is no evidence of a cute infarction. The osseous structures and orbits, show no signif icant abnormalities. The visualized sinuses are relatively clear. There is left periorbital soft tissue swelling laterally. IMPRES REAGAN: No evidence of acute intracranial hemorrhage. at 0046 Reported and signed by: Joshua Castro MD CC: Trista Prajapati MD Technologist:CARI SALTER CT CTDI: DLP: Trnscb Date/Time: 07/30/2018 (45) [email or web address] Orig Print D/T: S: 07/30/2018 (0049) PAGE 1 Signed Report - XR ANKLE 3 + V [id number] 00:36:00 FAX: Trista Velásquez MD [phone] [place]: St: REG Name: LESVIA MCCLELLAN [facility] : [birth year] Age/S: 38/M [address] [facility] Unit #: [id number] Loc: [place] [address] Phys: Trista Velásquez MD Acct: [id number] Dis Date: Status: REG ER PHONE #: [phone] Exam Date: 07/29/2018 0021 FAX #: [phone] Reason: PAIN, RECENT FRACTURE, SWELLING EXAMS: CPT CODE: [id number] XR ANKLE 3 + V LT 03628 LOCATION: Q15 HISTORY: 38-year-old male who presents with left ankle pain and swelling. The pa tient has a history of a recent fracture. COMMENT: F rontal, oblique, and lateral radiographs of the left ankle were examined. There is orthopedic hardware overlying the distal fibula, traversi ng a fracture in the distal fibular metaphysis. There is no radiographic evidence of hardware failure. The distal tibia is intact and the hindfoot skeleton is intact. The soft tissues are diffusely sw ollen. No gas or radiopaque foreign objects are seen in the soft tissues. IMPRESSION: Diffuse soft tissue swelling is se en in this patient's left ankle. Orthopedic hardware is seen o verlying the distal fibula. There is no radiographic evidence of hardwar e failure. at 0036 Reported and signed by: Jackie Morris M.D. CC: Trista Velásquez MD Technologist: Nicolle Colmenares Trnscrd Date/Time/By: 07/30/2018 (0036) : By: [email or web address] [email or web address] Orig Print D/T: S: 07/30/2018 (0039) PAG E 1 Signed Report - XR CHEST 1 [id number] 00:28:00 FAX: Trista Velásquez MD [phone] [place]: St: REG Name: LESVIA MCCLELLAN [facility] : [birth year] Age/S: 38/M [address] [facility] Unit #: [id number] Loc: [place] [address] Phys: Trista Velásquez MD Acct: [id number] Dis Date: Status: REG ER PHONE #: [phone] Exam Date: 07/29/2018 002 FAX #: [phone] Reason: Altered Mental Status EXAMS: CPT CODE: [id number] XR CHEST 1 V 36113 EXAM: - XR CHEST 1 V HISTORY: AMS. FINDINGS: Single AP view of the chest is provided. Heart size and vascularity are within normal limits. The lungs are clear of focal consolidation. No effusion, pneumothorax, or acute osseous abnormality. IMPRESSION: No radi ographic evidence of acute cardiopulmonary process. Electronically S igned by Joshua Castro MD on 07/30/2018 at 0028 Reporte d and signed by: Joshua Castro MD CC: Trista Velásquez MD Technologist: Nicolle Colmenares Trnscrd Date/Time/By: 07/30/2018 (0028) : By: Chidi [email or web address] Orig Print D/T: S: 07/30/2018 (0031) PAGE 1 Signed Report URINALYSIS [id number] 15:02:00* Test Item Value Reference Range Comments UA COLOR (test code=COLU) Light-Yellow YELLOW UA APPEARANCE (test code=APPU) CLEAR CLEAR UA GLUCOSE DIPSTICK (test code=DGLUU) NEGATIVE mg/dL NEGATIVE UA BILIRUBIN DIPSTICK (test code=BILU) NEGATIVE mg/dL NEGATIVE UA KETONE DIPSTICK (test code=KETU) NEGATIVE mg/dL NEGATIVE UA SPECIFIC GRAVITY (test code=SGU) 1.008 1.001-1.035 UA BLOOD DIPSTICK (test code=KILO) Negative mg/dL NEGATIVE UA PH DIPSTICK (test code=PRICILA) 6.0 5.0-8.0 UA PROTEIN DIPSTICK (test code=PROU) 30 (1+) mg/dL NEGATIVE UA UROBILINIOGEN DIPSTICK (test code=URO) Normal mg/dL NEGATIVE UA NITRITE DIPSTICK (test code=ELIOT) NEGATIVE NEGATIVE UA LEUKOCYTE ESTERASE W REFLEX (test code=LEUUR) NEGATIVE Teo/uL NEGATIVE UA WBC (test code=WBCU) 0-5 per HPF 0-5 UA RBC (test code=RBCU) 0-2 #/HPF 0-5 UA BACTERIA (test code=BACU) NONE SEEN #/HPF NONE Urine Source? Clean CatchDRUGS OF ABUSE SCREEN [id number] 15:02:00* Test Item Value Reference Range Comments URN COCAINE (test code=COCAURN) NEGATIVE <300 ng/mL URN CANNABINOIDS (test code=CANNABURN) NEGATIVE <50 ng/mL URN AMPHETAMINE (test code=AMPHETURN) NEGATIVE <1000 ng/mL URN BARBITURATE (test code=BARBITURN) NEGATIVE <200 ng/mL URN BENZODIAZEPINE (test code=BENZOURN) POSITIVE <200 ng/mL This test provides only a preliminary test result. A morespecific alternate chemical method must be used in order toobtain a confirmed analytical result. Gas chromatography/mass spectrometry (GC/MS) is thepreferred confirmatory method. Other chemical confirmationmethods are available. Clinical consideration and professional judgment should be applied to any drug of abusetest result, particularly when preliminary positive resultsare used.Unconfirmed screening results must not be used fornon-medical purposes (e.g., employment testing, legaltesting). URN OPIATES (test code=OPIATURN) POSITIVE <300 ng/mL This test provides only a preliminary test result. A morespecific alternate chemical method must be used in order toobtain a confirmed analytical result. Gas chromatography/mass spectrometry (GC/MS) is thepreferred confirmatory method. Other chemical confirmationmethods are available. Clinical consideration and professional judgment should be applied to any drug of abusetest result, particularly when preliminary positive resultsare used.Unconfirmed screening results must not be used fornon-medical purposes (e.g., employment testing, legaltesting). URN PHENCYCLIDINE (PCP) (test code=PHENCURN) NEGATIVE <25 ng/mL URN METHADONE (test code=METHAURN) NEGATIVE <300 ng/mL Urine Source? Clean CatchURINALYSIS [id number] 14:21:00* Test Item Value Reference Range Comments UA COLOR (test code=COLU) Light-Yellow YELLOW UA APPEARANCE (test code=APPU) CLEAR CLEAR UA GLUCOSE DIPSTICK (test code=DGLUU) NEGATIVE mg/dL NEGATIVE UA BILIRUBIN DIPSTICK (test code=BILU) NEGATIVE mg/dL NEGATIVE UA KETONE DIPSTICK (test code=KETU) NEGATIVE mg/dL NEGATIVE UA SPECIFIC GRAVITY (test code=SGU) 1.008 1.001-1.035 UA BLOOD DIPSTICK (test code=KILO) Negative mg/dL NEGATIVE UA PH DIPSTICK (test code=PRICILA) 6.0 5.0-8.0 UA PROTEIN DIPSTICK (test code=PROU) 30 (1+) mg/dL NEGATIVE UA UROBILINIOGEN DIPSTICK (test code=URO) Normal mg/dL NEGATIVE UA NITRITE DIPSTICK (test code=ELIOT) NEGATIVE NEGATIVE UA LEUKOCYTE ESTERASE W REFLEX (test code=LEUUR) NEGATIVE Teo/uL NEGATIVE UA WBC (test code=WBCU) 0-5 per HPF 0-5 UA RBC (test code=RBCU) 0-2 #/HPF 0-5 UA BACTERIA (test code=BACU) NONE SEEN #/HPF NONE Urine Source? Clean CatchDRUGS OF ABUSE SCREEN [id number] 14:21:00* Test Item Value Reference Range Comments URN COCAINE (test code=COCAURN) <300 ng/mL URN CANNABINOIDS (test code=CANNABURN) <50 ng/mL URN AMPHETAMINE (test code=AMPHETURN) <1000 ng/mL URN BARBITURATE (test code=BARBITURN) <200 ng/mL URN BENZODIAZEPINE (test code=BENZOURN) <200 ng/mL URN OPIATES (test code=OPIATURN) <300 ng/mL URN PHENCYCLIDINE (PCP) (test code=PHENCURN) <25 ng/mL URN METHADONE (test code=METHAURN) <300 ng/mL Urine Source? Clean CatchURINALYSIS [id number] 14:19:00* Test Item Value Reference Range Comments UA COLOR (test code=COLU) Light-Yellow YELLOW UA APPEARANCE (test code=APPU) CLEAR CLEAR UA GLUCOSE DIPSTICK (test code=DGLUU) NEGATIVE mg/dL NEGATIVE UA BILIRUBIN DIPSTICK (test code=BILU) NEGATIVE mg/dL NEGATIVE UA KETONE DIPSTICK (test code=KETU) NEGATIVE mg/dL NEGATIVE UA SPECIFIC GRAVITY (test code=SGU) 1.008 1.001-1.035 UA BLOOD DIPSTICK (test code=KILO) Negative mg/dL NEGATIVE UA PH DIPSTICK (test code=PRICILA) 6.0 5.0-8.0 UA PROTEIN DIPSTICK (test code=PROU) 30 (1+) mg/dL NEGATIVE UA UROBILINIOGEN DIPSTICK (test code=URO) Normal mg/dL NEGATIVE UA NITRITE DIPSTICK (test code=ELIOT) NEGATIVE NEGATIVE UA LEUKOCYTE ESTERASE W REFLEX (test code=LEUUR) NEGATIVE Teo/uL NEGATIVE UA WBC (test code=WBCU) per HPF 0-5 UA RBC (test code=RBCU) per HPF 0-5 UA EPITHELIAL CELLS (test code=EPIU) per HPF Few UA BACTERIA (test code=BACU) per HPF NONE Urine Source? Clean CatchDRUGS OF ABUSE SCREEN [id number] 14:19:00* Test Item Value Reference Range Comments URN COCAINE (test code=COCAURN) <300 ng/mL URN CANNABINOIDS (test code=CANNABURN) <50 ng/mL URN AMPHETAMINE (test code=AMPHETURN) <1000 ng/mL URN BARBITURATE (test code=BARBITURN) <200 ng/mL URN BENZODIAZEPINE (test code=BENZOURN) <200 ng/mL URN OPIATES (test code=OPIATURN) <300 ng/mL URN PHENCYCLIDINE (PCP) (test code=PHENCURN) <25 ng/mL URN METHADONE (test code=METHAURN) <300 ng/mL Urine Source? Clean CatchBASIC METABOLIC [id number] 10:19:00* Test Item Value Reference Range Comments SODIUM (test code=NA) 138 mmol/L 136-145 POTASSIUM (test code=K) 4.3 mmol/L 3.5-5.1 CHLORIDE (test code=CL) 103.0 mmol/L 98-107 CARBON DIOXIDE (test code=CO2) 21.0 mmol/L 21-32 ANION GAP (test code=GAP) 18.3 10-20 GLUCOSE (test code=GLU) 159 mg/dL 74-106 BLOOD UREA NITROGEN (test code=BUN) 5 mg/dL 7-18 GLOMERULAR FILTRATION RATE (test code=GFR) > 60 mL/min >=60 Estimated GFR by using Modified MDRD formula.Chronic kidney disease is defined as either kidney damageor GFR <60 mL/min/1.73 m2 for >3 months. CREATININE (test code=CREAT) 0.80 mg/dL 0.7-1.3 BUN/CREATININE RATIO (test code=BUN/CREA) 6.3 10-20 CALCIUM (test code=CA) 8.1 mg/dL 8.5-10.1 HEPATIC FUNCTION [id number] 10:19:00* Test Item Value Reference Range Comments TOTAL PROTEIN (test code=PROT) 7.2 gram/dL 6.4-8.2 ALBUMIN (test code=ALB) 3.5 g/dL 3.4-5.0 GLOBULIN (test code=GLOB) 3.7 gram/dL 2.7-4.2 ALBUMIN/GLOBULIN RATIO (test code=A/G) 1.0 0.75-1.50 BILIRUBIN TOTAL (test code=BILT) 0.60 mg/dL 0.0-1.0 BILIRUBIN DIRECT (test code=BILD) 0.16 mg/dL 0.0-0.20 SGOT/AST (test code=AST) 52 IUnit/L 15-37 SGPT/ALT (test code=ALT) 56 IUnit/L 12-78 ALKALINE PHOSPHATASE TOTAL (test code=ALKP) 137 IUnit/L 45-117 Note change in reference range due to change in reagent. [id number] 10:19:00* Test Item Value Reference Range Comments ACETAMINOPHEN (test code=ACET) < 10 mcg/mL 10-30 A RANGE OF 10-30 mcg/mL IS A THERAPEUTIC RANGE. TOXIC CONCENTRATIONS: >150 mcg/mL AT 4 HOURS AFTER INGESTION >=50 mcg/mL AT 12 HOURS AFTER INGESTION [id number] 10:19:00* Test Item Value Reference Range Comments SALICYLATE (test code=BARI) 4.9 mg/dL 2.8-20.0 [id number] 10:19:00* Test Item Value Reference Range Comments ALCOHOL (test code=ALC) 238 mg/dL 0.0-3.0 INTERPRETIVE DATA NOTE: POSITIVE SCREENING RESULTS SHOULD BE CONSIDERED PRESUMPTIVE.WHEN COLLECTED FOR MEDICAL PURPOSES ONLY. SPECIMEN WILL NOTBE COLLECTED BY CHAIN OF CUSTODY.IF A CONFIRMATION OF POSITIVE RESULTS IS DESIRED, ACONFIRMATION TEST MUST BE REQUESTED BY THE PHYSICIAN AT ANADDITIONAL CHARGE TO THE PATIENT. BASIC METABOLIC [id number] 10:07:00* Test Item Value Reference Range Comments SODIUM (test code=NA) 138 mmol/L 136-145 POTASSIUM (test code=K) 4.3 mmol/L 3.5-5.1 CHLORIDE (test code=CL) 103.0 mmol/L 98-107 CARBON DIOXIDE (test code=CO2) mmol/L 21-32 ANION GAP (test code=GAP) 10-20 GLUCOSE (test code=GLU) mg/dL 74-106 BLOOD UREA NITROGEN (test code=BUN) mg/dL 7-18 GLOMERULAR FILTRATION RATE (test code=GFR) mL/min >=60 CREATININE (test code=CREAT) mg/dL 0.7-1.3 BUN/CREATININE RATIO (test code=BUN/CREA) 10-20 CALCIUM (test code=CA) mg/dL 8.5-10.1 HEPATIC FUNCTION [id number] 10:07:00* Test Item Value Reference Range Comments TOTAL PROTEIN (test code=PROT) gram/dL 6.4-8.2 ALBUMIN (test code=ALB) g/dL 3.4-5.0 GLOBULIN (test code=GLOB) gram/dL 2.7-4.2 ALBUMIN/GLOBULIN RATIO (test code=A/G) 0.75-1.50 BILIRUBIN TOTAL (test code=BILT) mg/dL 0.0-1.0 BILIRUBIN DIRECT (test code=BILD) mg/dL 0.0-0.20 SGOT/AST (test code=AST) IUnit/L 15-37 SGPT/ALT (test code=ALT) IUnit/L 12-78 ALKALINE PHOSPHATASE TOTAL (test code=ALKP) IUnit/L 45-117 [id number] 10:07:00* Test Item Value Reference Range Comments ACETAMINOPHEN (test code=ACET) mcg/mL 10-30 [id number] 10:07:00* Test Item Value Reference Range Comments SALICYLATE (test code=BARI) mg/dL 2.8-20.0 [id number] 10:07:00* Test Item Value Reference Range Comments ALCOHOL (test code=ALC) mg/dL 0-3 CBC W/O [id number] 09:56:00* Test Item Value Reference Range Comments WHITE BLOOD CELL (test code=WBC) 12.1 K/mm3 4.5-12.5 RED BLOOD CELL (test code=RBC) 3.43 mill/mm3 4.0-5.8 HEMOGLOBIN (test code=HGB) 9.9 gram/dL 13.0-17.5 HEMATOCRIT (test code=HCT) 30.6 % 42.0-52.0 MEAN CELL VOLUME (test code=MCV) 89.2 fL 80-98 MEAN CELL HGB (test code=MCH) 28.9 picogram 27.0-33.0 MEAN CELL HGB CONCETRATION (test code=MCHC) 32.4 gram/dL 33.0-36.0 RED CELL DISTRIBUTION WIDTH (test code=RDW) 14.0 % 11.6-16.2 PLATELET COUNT (test code=PLT) 583 K/mm3 150-450 RESULT VERIFIED BY REPEAT ANALYSIS MEAN PLATELET VOLUME (test code=MPV) 9.0 fL 6.7-11.0 THYROID STIMULATING [id number] 02:06:00* Test Item Value Reference Range Comments THYROID STIMULATING HORMONE (test code=TSH) 3.93 uIU/mL 0.36-3.74 TSH REFERENCE RANGES: EUTHYROID: 0.4 - 4.3 HYPO : >7.6 HYPER : <0.1 COMPREHENSIVE METABOLIC [id number] 01:58:00* Test Item Value Reference Range Comments SODIUM (test code=NA) 137 mmol/L 128-145 POTASSIUM (test code=K) 3.9 mmol/L 3.5-5.1 CHLORIDE (test code=CL) 98.0 mmol/L 98-107 CARBON DIOXIDE (test code=CO2) 25.1 mmol/L 22-29 ANION GAP (test code=GAP) 18 mmol/L 10-20 GLUCOSE (test code=GLU) 210 mg/dL 70-110 BLOOD UREA NITROGEN (test code=BUN) 5 mg/dL 7-22 CREATININE (test code=CREAT) 0.88 mg/dL 0.55-1.3 BUN/CREATININE RATIO (test code=BUN/CREA) 5.7 10-20 TOTAL PROTEIN (test code=PROT) 8.4 gram/dL 6.1-7.8 ALBUMIN (test code=ALB) 4.0 g/dL 3.3-4.4 GLOBULIN (test code=GLOB) 4.4 G/DL 1-10 ALBUMIN/GLOBULIN RATIO (test code=A/G) 0.9 0.75-1.50 CALCIUM (test code=CA) 8.7 mg/dL 8.0-10.5 BILIRUBIN TOTAL (test code=BILT) 0.50 mg/dL 0.2-1.2 SGOT/AST (test code=AST) 47 U/L 10-39 SGPT/ALT (test code=ALT) 64 U/L 10-69 ALKALINE PHOSPHATASE TOTAL (test code=ALKP) 153 U/L 50-139 CREATINE KINASE (CK)2018-07-29 01:58:00* Test Item Value Reference Range Comments CREATINE KINASE (CK) (test code=CK) 454 U/L 39-308 COMPREHENSIVE METABOLIC [id number] 01:54:00* Test Item Value Reference Range Comments SODIUM (test code=NA) 137 mmol/L 128-145 POTASSIUM (test code=K) 3.9 mmol/L 3.5-5.1 CHLORIDE (test code=CL) 98.0 mmol/L 98-107 CARBON DIOXIDE (test code=CO2) 25.1 mmol/L 22-29 ANION GAP (test code=GAP) 18 mmol/L 10-20 GLUCOSE (test code=GLU) 210 mg/dL 70-110 BLOOD UREA NITROGEN (test code=BUN) 5 mg/dL 7-22 CREATININE (test code=CREAT) 0.88 mg/dL 0.55-1.3 BUN/CREATININE RATIO (test code=BUN/CREA) 5.7 10-20 TOTAL PROTEIN (test code=PROT) gram/dL 6.4-8.2 ALBUMIN (test code=ALB) g/dL 3.4-5.0 GLOBULIN (test code=GLOB) G/DL 1-10 ALBUMIN/GLOBULIN RATIO (test code=A/G) 0.75-1.50 CALCIUM (test code=CA) 8.7 mg/dL 8.0-10.5 BILIRUBIN TOTAL (test code=BILT) mg/dL 0.0-1.0 SGOT/AST (test code=AST) IUnit/L 15-37 SGPT/ALT (test code=ALT) IUnit/L 12-78 ALKALINE PHOSPHATASE TOTAL (test code=ALKP) IUnit/L 45-117 CREATINE KINASE (CK)2018-07-29 01:54:00* Test Item Value Reference Range Comments CREATINE KINASE (CK) (test code=CK) U/L 39-308 CBC W/AUTO [id number] 01:46:00* Test Item Value Reference Range Comments WHITE BLOOD CELL (test code=WBC) 14.7 K/mm3 4.5-12.5 RED BLOOD CELL (test code=RBC) 3.60 mill/mm3 4.0-5.8 HEMOGLOBIN (test code=HGB) 10.8 gram/dL 13.0-17.5 HEMATOCRIT (test code=HCT) 32.6 % 42.0-52.0 MEAN CELL VOLUME (test code=MCV) 90.6 fL 80-98 MEAN CELL HGB (test code=MCH) 30.0 picogram 27.0-33.0 MEAN CELL HGB CONCETRATION (test code=MCHC) 33.1 gram/dL 33.0-36.0 RED CELL DISTRIBUTION WIDTH (test code=RDW) 13.9 % 11.6-16.2 RED CELL DISTRIBUTION WIDTH SD (test code=RDW-SD) 46.1 fL 37.0-51.0 PLATELET COUNT (test code=PLT) 637 K/mm3 150-450 RESULT VERIFIED BY REPEAT ANALYSIS MEAN PLATELET VOLUME (test code=MPV) 8.8 fL 6.7-11.0 NEUTROPHIL % (test code=NT%) 67.6 % 39.0-69.0 LYMPHOCYTE % (test code=LY%) 19.3 % 25.0-55.0 MONOCYTE % (test code=MO%) 9.6 % 0.0-10.0 EOSINOPHIL % (test code=EO%) 1.3 % 0.0-5.0 BASOPHIL % (test code=BA%) 0.5 % 0.0-1.0 NEUTROPHIL # (test code=NT#) 9.93 K/mm3 1.8-7.7 LYMPHOCYTE # (test code=LY#) 2.83 K/mm3 1.0-5.0 MONOCYTE # (test code=MO#) 1.41 K/mm3 0-0.8 EOSINOPHIL # (test code=EO#) 0.19 K/mm3 0.0-0.5 BASOPHIL # (test code=BA#) 0.08 K/mm3 0.0-0.2 MANUAL DIFF REQUIRED (test code=MDIFF) NO [id number] 07:36:00* Test Item Value Reference Range Comments GLUBED (test code=GLUBED) 118 MG/DL 70-110 Performed by certified auxiliary equipment operator at [facility] [id number] 23:42:00* Test Item Value Reference Range Comments GLUBED (test code=GLUBED) 130 MG/DL 70-110 Performed by certified auxiliary equipment operator at [facility] [id number] 17:50:00* Test Item Value Reference Range Comments GLUBED (test code=GLUBED) 120 MG/DL 70-110 Performed by certified auxiliary equipment operator at [facility] [id number] 10:31:00* Test Item Value Reference Range Comments GLUBED (test code=GLUBED) 136 MG/DL 70-110 Performed by certified auxiliary equipment operator at [facility] [id number] 10:31:00* Test Item Value Reference Range Comments GLUBED (test code=GLUBED) 109 MG/DL 70-110 Performed by certified auxiliary equipment operator at [facility] RENAL FUNCTION [id number] 07:15:00* Test Item Value Reference Range Comments SODIUM (test code=NA) 136 mEq/L 134-147 POTASSIUM (test code=K) 3.8 mEq/L 3.4-5.0 CHLORIDE (test code=CL) 104 mEq/L 100-108 CARBON DIOXIDE (test code=CO2) 24 mEq/L 21-33 ANION GAP (test code=GAP) 12 0-20 GLUCOSE (test code=GLU) 128 mg/dL 70-110 BLOOD UREA NITROGEN (test code=BUN) 12 mg/dL 7-18 GLOMERULAR FILTRATION RATE (test code=GFR) 126.2 105-110 Units of measure=ml/min/1.73 m2 CREATININE (test code=CREAT) 0.7 mg/dL 0.6-1.3 ALBUMIN (test code=ALB) 3.30 g/dL 3.4-5.0 CALCIUM (test code=CA) 8.9 mg/dL 8.0-10.5 PHOSPHOROUS (test code=PHOS) 5.1 mg/dL 2.5-4.9 [id number] 07:15:00* Test Item Value Reference Range Comments MAGNESIUM (test code=MAG) 2.00 mg/dL 1.8-2.4 CBC W/AUTO [id number] 06:57:00* Test Item Value Reference Range Comments WHITE BLOOD CELL (test code=WBC) 8.72 x10 3/uL 4.5-11.0 RED BLOOD CELL (test code=RBC) 3.09 x10 6/uL 4.00-5.60 HEMOGLOBIN (test code=HGB) 9.2 g/dL 12.5-16.9 HEMATOCRIT (test code=HCT) 29.0 % 37.5-50.7 MEAN CELL VOLUME (test code=MCV) 93.9 fL 81.0-99.0 MEAN CELL HGB (test code=MCH) 29.8 pg 27.0-33.0 MEAN CELL HGB CONCETRATION (test code=MCHC) 31.7 g/dL 33.0-37.0 RED CELL DISTRIBUTION WIDTH CV (test code=RDW) 14.0 % 11.5-14.5 RED CELL DISTRIBUTION WIDTH SD (test code=RDW-SD) 47.2 fL 37.0-54.0 PLATELET COUNT (test code=PLT) 573 x10 3/uL 150-400 MEAN PLATELET VOLUME (test code=MPV) 9.1 fL 7.0-9.0 NEUTROPHIL % (test code=NT%) 61.0 % 56.0-77.0 IMMATURE GRANULOCYTE % (test code=IG%) 3.8 % 0.0-2.0 LYMPHOCYTE % (test code=LY%) 20.5 % 14.0-32.0 MONOCYTE % (test code=MO%) 11.6 % 4.8-9.0 EOSINOPHIL % (test code=EO%) 2.3 % 0.3-3.7 BASOPHIL % (test code=BA%) 0.8 % 0.0-2.0 NUCLEATED RBC % (test code=NRBC%) 0.3 % 0-0 NEUTROPHIL # (test code=NT#) 5.32 x10 3/uL 2.0-7.6 IMMATURE GRANULOCYTE # (test code=IG#) 0.33 x10 3/uL 0.00-0.03 LYMPHOCYTE # (test code=LY#) 1.79 x10 3/uL 1.0-3.8 MONOCYTE # (test code=MO#) 1.01 x10 3/uL 0.1-0.8 EOSINOPHIL # (test code=EO#) 0.20 x10 3/uL 0.0-0.2 BASOPHIL # (test code=BA#) 0.07 x10 3/uL 0.0-0.2 NUCLEATED RBC # (test code=NRBC#) 0.03 x10 3/uL 0.0-0.1 MANUAL DIFF REQUIRED (test code=MDIFF) NO [id number] 20:46:00* Test Item Value Reference Range Comments GLUBED (test code=GLUBED) 136 MG/DL 70-110 Performed by certified auxiliary equipment operator at [facility] [id number] 17:45:00* Test Item Value Reference Range Comments GLUBED (test code=GLUBED) 117 MG/DL 70-110 Performed by certified auxiliary equipment operator at [facility] [id number] 11:31:00* Test Item Value Reference Range Comments GLUBED (test code=GLUBED) 119 MG/DL 70-110 Performed by certified auxiliary equipment operator at [facility] [id number] 11:10:00* Test Item Value Reference Range Comments GLUBED (test code=GLUBED) 117 MG/DL 70-110 Performed by certified auxiliary equipment operator at [facility] [id number] 20:38:00* Test Item Value Reference Range Comments GLUBED (test code=GLUBED) 116 MG/DL 70-110 Performed by certified auxiliary equipment operator at [facility] [id number] 16:45:00* Test Item Value Reference Range Comments GLUBED (test code=GLUBED) 118 MG/DL 70-110 Performed by certified auxiliary equipment operator at [facility] [id number] 16:45:00* Test Item Value Reference Range Comments GLUBED (test code=GLUBED) 124 MG/DL 70-110 Performed by certified auxiliary equipment operator at [facility] [id number] 11:11:00* Test Item Value Reference Range Comments GLUBED (test code=GLUBED) 83 MG/DL 70-110 Performed by certified auxiliary equipment operator at [facility] RENAL FUNCTION [id number] 06:37:00* Test Item Value Reference Range Comments SODIUM (test code=NA) 135 mEq/L 134-147 POTASSIUM (test code=K) 3.7 mEq/L 3.4-5.0 CHLORIDE (test code=CL) 101 mEq/L 100-108 CARBON DIOXIDE (test code=CO2) 28 mEq/L 21-33 ANION GAP (test code=GAP) 10 0-20 GLUCOSE (test code=GLU) 108 mg/dL 70-110 BLOOD UREA NITROGEN (test code=BUN) 12 mg/dL 7-18 GLOMERULAR FILTRATION RATE (test code=GFR) 94.4 105-110 Units of measure=ml/min/1.73 m2 CREATININE (test code=CREAT) 0.9 mg/dL 0.6-1.3 ALBUMIN (test code=ALB) 3.70 g/dL 3.4-5.0 CALCIUM (test code=CA) 9.3 mg/dL 8.0-10.5 PHOSPHOROUS (test code=PHOS) 4.4 mg/dL 2.5-4.9 [id number] 06:37:00* Test Item Value Reference Range Comments MAGNESIUM (test code=MAG) 2.10 mg/dL 1.8-2.4 CBC W/AUTO [id number] 06:22:00* Test Item Value Reference Range Comments WHITE BLOOD CELL (test code=WBC) 6.71 x10 3/uL 4.5-11.0 RED BLOOD CELL (test code=RBC) 3.40 x10 6/uL 4.00-5.60 HEMOGLOBIN (test code=HGB) 10.1 g/dL 12.5-16.9 HEMATOCRIT (test code=HCT) 31.6 % 37.5-50.7 MEAN CELL VOLUME (test code=MCV) 92.9 fL 81.0-99.0 MEAN CELL HGB (test code=MCH) 29.7 pg 27.0-33.0 MEAN CELL HGB CONCETRATION (test code=MCHC) 32.0 g/dL 33.0-37.0 RED CELL DISTRIBUTION WIDTH CV (test code=RDW) 13.9 % 11.5-14.5 RED CELL DISTRIBUTION WIDTH SD (test code=RDW-SD) 46.7 fL 37.0-54.0 PLATELET COUNT (test code=PLT) 528 x10 3/uL 150-400 MEAN PLATELET VOLUME (test code=MPV) 8.9 fL 7.0-9.0 NEUTROPHIL % (test code=NT%) 53.5 % 56.0-77.0 IMMATURE GRANULOCYTE % (test code=IG%) 4.2 % 0.0-2.0 LYMPHOCYTE % (test code=LY%) 22.4 % 14.0-32.0 MONOCYTE % (test code=MO%) 17.1 % 4.8-9.0 EOSINOPHIL % (test code=EO%) 2.2 % 0.3-3.7 BASOPHIL % (test code=BA%) 0.6 % 0.0-2.0 NUCLEATED RBC % (test code=NRBC%) 0.6 % 0-0 NEUTROPHIL # (test code=NT#) 3.59 x10 3/uL 2.0-7.6 IMMATURE GRANULOCYTE # (test code=IG#) 0.28 x10 3/uL 0.00-0.03 LYMPHOCYTE # (test code=LY#) 1.50 x10 3/uL 1.0-3.8 MONOCYTE # (test code=MO#) 1.15 x10 3/uL 0.1-0.8 EOSINOPHIL # (test code=EO#) 0.15 x10 3/uL 0.0-0.2 BASOPHIL # (test code=BA#) 0.04 x10 3/uL 0.0-0.2 NUCLEATED RBC # (test code=NRBC#) 0.04 x10 3/uL 0.0-0.1 MANUAL DIFF REQUIRED (test code=MDIFF) NO [id number] 23:27:00* Test Item Value Reference Range Comments GLUBED (test code=GLUBED) 125 MG/DL 70-110 Performed by certified auxiliary equipment operator at [facility] [id number] 20:37:00* Test Item Value Reference Range Comments GLUBED (test code=GLUBED) 98 MG/DL 70-110 Performed by certified auxiliary equipment operator at [facility] [id number] 15:50:00* Test Item Value Reference Range Comments GLUBED (test code=GLUBED) 91 MG/DL 70-110 Performed by certified auxiliary equipment operator at [facility] [id number] 08:15:00* Test Item Value Reference Range Comments GLUBED (test code=GLUBED) 100 MG/DL 70-110 Performed by certified auxiliary equipment operator at [facility] [id number] 06:04:00* Test Item Value Reference Range Comments GLUBED (test code=GLUBED) 108 MG/DL 70-110 Performed by certified auxiliary equipment operator at [facility] [id number] 16:48:00* Test Item Value Reference Range Comments GLUBED (test code=GLUBED) 99 MG/DL 70-110 Performed by certified auxiliary equipment operator at [facility] [id number] 07:41:00* Test Item Value Reference Range Comments GLUBED (test code=GLUBED) 104 MG/DL 70-110 Performed by certified auxiliary equipment operator at [facility] [id number] 17:16:00* Test Item Value Reference Range Comments GLUBED (test code=GLUBED) 101 MG/DL 70-110 Performed by certified auxiliary equipment operator at [facility] [id number] 12:15:00* Test Item Value Reference Range Comments GLUBED (test code=GLUBED) 106 MG/DL 70-110 Performed by certified auxiliary equipment operator at [facility] CBC W/AUTO [id number] 11:06:00* Test Item Value Reference Range Comments WHITE BLOOD CELL (test code=WBC) 4.96 x10 3/uL 4.5-11.0 RED BLOOD CELL (test code=RBC) 2.73 x10 6/uL 4.00-5.60 HEMOGLOBIN (test code=HGB) 8.0 g/dL 12.5-16.9 HEMATOCRIT (test code=HCT) 24.8 % 37.5-50.7 MEAN CELL VOLUME (test code=MCV) 90.8 fL 81.0-99.0 MEAN CELL HGB (test code=MCH) 29.3 pg 27.0-33.0 MEAN CELL HGB CONCETRATION (test code=MCHC) 32.3 g/dL 33.0-37.0 RED CELL DISTRIBUTION WIDTH CV (test code=RDW) 13.2 % 11.5-14.5 RED CELL DISTRIBUTION WIDTH SD (test code=RDW-SD) 43.2 fL 37.0-54.0 PLATELET COUNT (test code=PLT) 302 x10 3/uL 150-400 MEAN PLATELET VOLUME (test code=MPV) 9.0 fL 7.0-9.0 MANUAL DIFF REQUIRED (test code=MDIFF) NO SLIDE REVIEWED, CONSISTENT WITH AUTO DIFF. [id number] 10:17:00* Test Item Value Reference Range Comments GLUBED (test code=GLUBED) 114 MG/DL 70-110 Performed by certified auxiliary equipment operator at [facility] BASIC METABOLIC [id number] 06:50:00* Test Item Value Reference Range Comments SODIUM (test code=NA) 136 mEq/L 134-147 POTASSIUM (test code=K) 3.8 mEq/L 3.4-5.0 CHLORIDE (test code=CL) 103 mEq/L 100-108 CARBON DIOXIDE (test code=CO2) 26 mEq/L 21-33 ANION GAP (test code=GAP) 11 0-20 GLUCOSE (test code=GLU) 105 mg/dL 70-110 BLOOD UREA NITROGEN (test code=BUN) 9 mg/dL 7-18 GLOMERULAR FILTRATION RATE (test code=GFR) 150.8 105-110 Units of measure=ml/min/1.73 m2 CREATININE (test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 the endotracheal tube, nasogastric tube and right jugular central venous catheter has not significantly changed in the interim. The cardiomediastinal shadow is stable. Lung volumes are decreased with persistent atelectasis in both lung bases. The upper lung duncan appear clear. The pulmonary vasculature is normal in caliber. No acute pleural space abnormalities are detected. IMPRESSION: 1. Stable positioning of the life-support apparatus. 2. Low lung volumes with persistent bilateral basilar atelectasis. SL: 131 at 0553 Reported and signed by: Migue River M.D. CC: Edda Chaparro MD; Marcelo [facility] Technologist: Tamie Quinones, RT(R); RT Gemma(R) Trnutrd Date/Time/By: 07/16/2018 (0553) : By: Gabbi Orig Print D/T: S: 07/16/2018 (0556) PAGE 1 Signed Report [id number] 05:42:00* Test Item Value Reference Range Comments GLUBED (test code=GLUBED) 113 MG/DL 70-110 Performed by certified auxiliary equipment operator at [facility] [id number] 05:42:00* Test Item Value Reference Range Comments GLUBED (test code=GLUBED) 124 MG/DL 70-110 Performed by certified auxiliary equipment operator at [facility] CBC W/AUTO [id number] 05:41:00* Test Item Value Reference Range Comments WHITE BLOOD CELL (test code=WBC) 5.20 x10 3/uL 4.5-11.0 RED BLOOD CELL (test code=RBC) 2.44 x10 6/uL 4.00-5.60 HEMOGLOBIN (test code=HGB) 7.5 g/dL 12.5-16.9 HEMATOCRIT (test code=HCT) 23.6 % 37.5-50.7 MEAN CELL VOLUME (test code=MCV) 96.7 fL 81.0-99.0 MEAN CELL HGB (test code=MCH) 30.7 pg 27.0-33.0 MEAN CELL HGB CONCETRATION (test code=MCHC) 31.8 g/dL 33.0-37.0 RED CELL DISTRIBUTION WIDTH CV (test code=RDW) 14.2 % 11.5-14.5 RED CELL DISTRIBUTION WIDTH SD (test code=RDW-SD) 50.7 fL 37.0-54.0 PLATELET COUNT (test code=PLT) 131 x10 3/uL 150-400 MEAN PLATELET VOLUME (test code=MPV) 9.6 fL 7.0-9.0 NEUTROPHIL % (test code=NT%) 63.7 % 56.0-77.0 IMMATURE GRANULOCYTE % (test code=IG%) 0.2 % 0.0-2.0 LYMPHOCYTE % (test code=LY%) 20.0 % 14.0-32.0 MONOCYTE % (test code=MO%) 11.3 % 4.8-9.0 EOSINOPHIL % (test code=EO%) 3.8 % 0.3-3.7 BASOPHIL % (test code=BA%) 1.0 % 0.0-2.0 NUCLEATED RBC % (test code=NRBC%) 0.0 % 0-0 NEUTROPHIL # (test code=NT#) 3.31 x10 3/uL 2.0-7.6 IMMATURE GRANULOCYTE # (test code=IG#) 0.01 x10 3/uL 0.00-0.03 LYMPHOCYTE # (test code=LY#) 1.04 x10 3/uL 1.0-3.8 MONOCYTE # (test code=MO#) 0.59 x10 3/uL 0.1-0.8 EOSINOPHIL # (test code=EO#) 0.20 x10 3/uL 0.0-0.2 BASOPHIL # (test code=BA#) 0.05 x10 3/uL 0.0-0.2 NUCLEATED RBC # (test code=NRBC#) 0.00 x10 3/uL 0.0-0.1 MANUAL DIFF REQUIRED (test code=MDIFF) NO [id number] 18:14:00* Test Item Value Reference Range Comments GLUBED (test code=GLUBED) 116 MG/DL 70-110 Performed by certified auxiliary equipment operator at [facility] T4 [id number] 13:59:00* Test Item Value Reference Range Comments T4 FREE (test code=T4F) 0.7 ng/dL 0.77-1.61 THYROID STIMULATING [id number] 13:59:00* Test Item Value Reference Range Comments THYROID STIMULATING HORMONE (test code=TSH) 7.67 0.42-5.47 Results in deana-International Units/mL HGBA1C%2018-07-15 13:59:00* Test Item Value Reference Range Comments HGBA1C% (test code=HGBA1C%) 5.1 %A1C 4.8-6.0 [id number] 12:39:00* Test Item Value Reference Range Comments GLUBED (test code=GLUBED) 139 MG/DL 70-110 Performed by certified auxiliary equipment operator at [facility] - MRI BRAIN W/O [id number] 12:09:00 FAX: Kadie Leal DO [phone] [place]: St: [facility] FAX: Marcelo Peck MD [phone] Name: LESVIA RUSSO [facility] : 1980 Age/S: 38/M [address] [place] [address] Unit #: [id number] Loc: G.M310 [place], [place] [address] Phys: Kadie Connell DO Acct: [id number] Dis Date: Status: ADM IN PHONE #: [phone] Exam Date: 07/15/2018 1126 FAX #: [phone] Reason: f/u septum pellucidum hemorrhage EXAMS: CPT CODE: [id number] MRI BRAIN W/O CONT 71285 MRI brain without contrast 07/15/2018 HISTORY: Hemo rrhage on noncontrast CT PROCEDURE: Multiplanar multisequence imag ing of the brain is performed without contrast Comparison is made to CT performed on 07/15/2018 FINDINGS: Blooming artifact in the posterior septum pellucidum corresponds to acute hemorrhage on recent CT. Additional area of blooming artifact in the superior left corpus call osum is not as well visualized on CT and measures 7 x 3 mm. No midline sh ift or hydrocephalus is present. No extra-axial fluid collection is prese nt. No significant area of abnormal increased FLAIR signal in the c erebral white matter is present. No evidence for acute ischemia is presen t. The visualized mastoid air cells are clear. There is no air-fluid lev el in the visualized paranasal sinuses. The expected intracranial flow vo ids are present. IMPRESSION: Subcentimeter hemorrhages i nvolving septum pellucidum and superior left corpus callosum SL: [id number] at 1209 Reported and signed by: Josh Shah M.D. CC: Kadie Connell DO; Marcelo [facility] Technologist: Dillan smith, RT(R)(CT)(MR) Trnscrd Date/Time/By: 9 (2921) : By: [email or web address] Orig Print D/T: S: 07/15/2018 (5730) PAGE 1 Signed Report - CT ABD PELVIS W/[id number] 11:32:00 Name: JILLIANMIGUEL A PRECIADON [facility] : 1980 Age/S: 38 / M [address] [place] [address] Unit #: [id number] Loc: [place] [address] Phys: Edda Chaparro MD Acct: [id number] Dis Date: Status: ADM IN PHONE #: [phone] Exam Date: 07/15/2018 1055 FAX #: [phone] Reason: auto-ped, hgb 11->8, assess for missed intra-ab EXAMS: CPT CODE: [id number] CT ABD PELVIS W/CONT 77271 CT SCAN OF THE CHEST ABDOMEN AND PELVIS WITH CONTRAST (MAJOR TRAUMA PROTOCOL): HISTORY: Major trauma. Acute injury. Dropping hemoglobin. Known intracranial hemorrhage. COMPARISON EXAMS: Current chest x-ray of 07/15/2018. TECHNIQUE: Axial images were obtained of the chest from the lung apices to the lung bases following intravenous injection of 100 mL Isovue-300. Images were obtained of the abdomen and pelvis from the domes of the diaphragm to the symphysis pubis. Coronal reconstructions were generated of the chest, abdomen and pelvis. Sagittal reconstructions were obtained of the thoracic and lumbar spine. DOSE: CT imaging performed at this location utilizes radiation dose optimization technique which includes one or more of the followin) Automated exposure control; 2) Adjustment of the mA and/or kV according to patient's size; 3) Use of iterative reconstruction techniques. DLP (mGy-cm): 1230 FINDINGS: CHEST: No evidence of traumatic vascular injury or mediastinal hematoma. No evidence of pleural effusion or pneumothorax. Bibasilar atelectasis accounts for the opacities described on the chest x- ray. Endotracheal tube tip is in good position just above the sean. Gastric tube courses into the lumen of the stomach. ABDOMEN AND PELVIS: No solid organ laceration identified in the abdomen or pelvis. No focal lesions in the liver, spleen, pancreas, adrenal glands or kidneys. No evidence of mesenteric hematoma, free air or free fluid. No active extravasation. The gallbladder is normal in size. No evidence of appendicitis. The abdominal wall is intact. No evidence of abdominal pelvic hematoma or free fluid. A Park catheter bulb is identified within the bladder lumen. SKELETAL: Bone windows show no evidence of acute fracture or suspicious blastic or lytic lesions. Spinal alignment is normal. No evidence of spinal or pelvic fracture. Minimal irregularity of the upper sternum, especially noted on the sagittal reconstructions, appears secondary to respiratory motion artifact. PAGE 1 Signed Report (CONTINUED) [facility] 1980 Age/S: 38 / M [address] [place] [address] Unit #: [id number] Loc: [place] [address] P hys: Edda Chaparro MD Acct: [id number] Dis Date: Status: ADM IN PHONE #: [phone] Exam Date: 07/15/2018 1055 F AX #: [phone] Reason: auto-ped, hgb 11->8, assess for missed intra-ab EXAMS: CPT CODE: [id number] CT ABD PELVIS W/CONT 79878 <Continued> IMPRESSION: 1. No acute changes identified in the chest, abdomen or pelvis. 2. Bibasilar atelectasis accounts for the opac ities noted on the chest x-ray. 3. ET tube and gastric tube in good position. 4. No evidence of hematoma or free fluid. SL:01 Electronic ally Signed by Mable Salcedo on 9 at 1132 Reported and signed by: Denton Salcedo M.D. CC: Edda Chaparro MD; Marcelo Grahamm Technologist:RT Andreea(R)(CT) CTDI: DLP: Trnscb Date/Time: 07/15/2018 (1132) [email or web address] Orig Print D/T: S: 07/15/2018 (1135) PAGE 2 Signed Report - CT CHEST W/[id number] 11:32:00 Name: [facility] 1980 Age/S: 38 / M [address] [place] [address] Unit #: [id number] Loc: [place] [address] Phys: Jose Chaparro MD Acct: [id number] Di s Date: Status: ADM IN PHONE #: Exam Date: 07/15/2018 1055 FAX #: Reason: auto-ped, hgb 11->8, left effusion on xray EXAMS: CPT CODE: [id number] CT CHEST W/CONTRAST 26437 CT SCAN OF THE CHEST ABDOMEN AND PELVIS WITH CONTRAST (MAJOR TRAUMA PROTOCOL): HISTORY: Major trauma. Acute injury. Dropping hemoglobin. Known intracranial hemorrhage. COMPARISON EXAMS: Current chest x-ray of 07/15/2018. TECHNIQUE: Axial images were obtained of the chest from the lung apices to the lung bases following intravenous injection of 100 mL Isovue-300. Images were obtained of the abdomen and pelvis from the domes of the diaphragm to the symphysis pubis. Coronal reconstructions were generated of the chest, abdomen and pelvis. Sagittal reconstructions were obtained of the thoracic and lumbar spine. DOSE: CT imaging performed at this location utilizes radiation dose optimization technique which includes one or more of the followin) Automated exposure control; 2) Adjustment of the mA and/or kV according to patient's size; 3) Use of iterative reconstruction techniques. DLP (mGy- cm): 1230 FINDINGS: CHEST: No evidence of traumatic vascular injury or mediastinal hematoma. No evidence of pleural effusion or pneumothorax. Bibasilar atelectasis accounts for the opacities described on the chest x-ray. Endotracheal tube tip is in good position just above the sean. Gastric tube courses into the lumen of the stomach. ABDOMEN AND PELVIS: No solid organ l aceration identified in the abdomen or pelvis. No focal lesions in the li tomy, spleen, pancreas, adrenal glands or kidneys. No evidence of mesenter ic hematoma, free air or free fluid. No active extravasation. The gallbl adder is normal in size. No evidence of appendicitis. The abdominal wall is intact. No evidence of abdominal pelvic hematoma or free fluid. A Park catheter bulb is identified within the bladder lumen. SKE LETAL: Bone windows show no evidence of acute fracture or suspicious yoav tic or lytic lesions. Spinal alignment is normal. No evidence of spinal or pelvic fracture. Minimal irregularity of the upper sternum, especially noted on the sagittal reconstructions, appears secondary to respiratory m otion artifact. PAGE 1 Signed Report (CONTINUED) Name: LESVIA RUSSO [facility] : 1980 Age/S: 38 / M [address] [place] [address] Unit #: [id number] Loc: [place] [address] P hys: Edda Chaparro MD Acct: [id number] Dis Date: Status: ADM IN PHONE #: [phone] Exam Date: 07/15/2018 1055 F AX #: [phone] Reason: auto-ped, hgb 11->8, left effusion on xray EXAMS: CPT CODE: [id number] CT CHEST W/CONTRAST 13662 <Continued> IMPRESSION: 1. No acute changes identified in the chest, abdomen or pelvis. 2. Bibasilar atelectasis accounts for the opac ities noted on the chest x-ray. 3. ET tube and gastric tube in good position. 4. No evidence of hematoma or free fluid. SL:01 Electronic ally Signed by Mable Salcedo on 9 at 1132 Reported and signed by: Denton Salcedo M.D. CC: Edda Chaparro MD; Marcelo Rogers Technologist:RT Andreea(R)(CT) CTDI: DLP: Trnscb Date/Time: 07/15/2018 (966) t.MONIK Orig Print D/T: S: 07/15/2018 (1260) PAGE 2 Signed Report - XR CHEST 1 [id number] 07:21:00 FAX: Marcelo Peck MD [phone] [place]: St: ADM Name: LESVIA MCCLELLAN [facility] : [birth year] Age/S: 38/M [address] [place] [address] Unit #: [id number] Loc: [address] [address] Phys: Marcelo Rogers MD Acct: [id number] Dis Date: Status: ADM IN PHONE #: [phone] Exam Date: 07/15/2018 0535 FAX #: [phone] Reason: TRAUMA EXAMS: CPT CODE: [id number] XR CHEST 1 V 46531 - XR CHEST 1 V 07/15/2018 5:00 AM Ordering Physician: Marcelo Rogers MD CLINICAL HISTORY: Tr auma; TECHNIQUE: A single AP view of the chest was obtained. COMPARISON: July 14, 2018. FINDINGS: Bibas ilar subsegmental atelectasis remains. Small left pleural effusion may be present. No radiographically detectable pneumothorax is present. The heart is normal in size. Support lines and tubes are unchanged in positions. No acute osseous abnormality is evident. IMPRESSION: 1. No significant change. SL: CY-H at 0721 Reported and signed by: Katy Harman M.D. CC: Marcelo Rogers Technologist: Tamie Quinones, RT(R); Archie Minaya RT(R) Trnscrd Date/Time/By: 07/15/2018 (0721) : By: [email or web address] Orig Print D/T: S: 0 07/15/2018 (0757) PAGE 1 Signed Re port - CT HEAD/BRAIN W/O [id number] 07:09:00 Name: LESVIA RUSSO [facility] : 1980 Age/S: 38 / M [address] [place] [address] Unit #: [id number] Loc: [place] [address] Phys: Arcadio Rogers MD Acct: [id number] Di s Date: Status: ADM IN PHONE #: Exam Date: 07/15/2018 043 FAX #: [phone] Reason: autoped, IPH, ? VALENTINO EXAMS: CPT CODE: [id number] CT HEAD/BRAIN W/O CONT 93310 CT head without contrast 07/15/2018 HISTORY: Intracranial hemorrhage after trauma PROCEDURE: Multiple axial images from the skull base to the skull vert ex were obtained without contrast. Coronal and sagittal reconstructed nai ges were performed. DLP: 883 Comparison is made to 07/14/2018 FINDINGS: Scalp soft tissue swelling is unchanged. Superior right skin graham are unchanged. 6 mm hemorrhage involving the septum pellu cidum is unchanged. No new hemorrhage is present. No new infarct is note d. No midline shift or hydrocephalus is present. The visualized mastoid air cells are clear. There is no air-fluid level in the visualized parana bari sinuses. IMPRESSION: 1. Unchanged 6 mm hemorrhage i n septum pellucidum. 2. No new hemorrhage. No new infarct. SL: [id number] at 0709 Reported and signed by: Josh Shah M.D. CC: Marcelo Rogers; Kaya Hernandez MD Technologist:Cesar Tavarez RT(R) CTDI: DLP: Trnscb Date/Time: 07/15/2018 (708) [email or web address] Orig Print D/T: S: 07/15/2018 (711) PAGE 1 Signed Report [id number] 06:46:00* Test Item Value Reference Range Comments GLUBED (test code=GLUBED) 138 MG/DL 70-110 Performed by certified auxiliary equipment operator at [facility] RENAL FUNCTION [id number] 05:58:00* Test Item Value Reference Range Comments SODIUM (test code=NA) 139 mEq/L 134-147 POTASSIUM (test code=K) 4.0 mEq/L 3.4-5.0 CHLORIDE (test code=CL) 107 mEq/L 100-108 CARBON DIOXIDE (test code=CO2) 24 mEq/L 21-33 ANION GAP (test code=GAP) 12 0-20 GLUCOSE (test code=GLU) 137 mg/dL 70-110 BLOOD UREA NITROGEN (test code=BUN) 8 mg/dL 7-18 GLOMERULAR FILTRATION RATE (test code=GFR) 126.2 105-110 Units of measure=ml/min/1.73 m2 CREATININE (test code=CREAT) 0.7 mg/dL 0.6-1.3 ALBUMIN (test code=ALB) 2.70 g/dL 3.4-5.0 CALCIUM (test code=CA) 7.4 mg/dL 8.0-10.5 PHOSPHOROUS (test code=PHOS) 2.0 mg/dL 2.5-4.9 [id number] 05:58:00* Test Item Value Reference Range Comments MAGNESIUM (test code=MAG) 2.00 mg/dL 1.8-2.4 CBC W/AUTO [id number] 05:33:00* Test Item Value Reference Range Comments WHITE BLOOD CELL (test code=WBC) 6.60 x10 3/uL 4.5-11.0 RED BLOOD CELL (test code=RBC) 2.70 x10 6/uL 4.00-5.60 HEMOGLOBIN (test code=HGB) 8.1 g/dL 12.5-16.9 HEMATOCRIT (test code=HCT) 25.4 % 37.5-50.7 MEAN CELL VOLUME (test code=MCV) 94.1 fL 81.0-99.0 MEAN CELL HGB (test code=MCH) 30.0 pg 27.0-33.0 MEAN CELL HGB CONCETRATION (test code=MCHC) 31.9 g/dL 33.0-37.0 RED CELL DISTRIBUTION WIDTH CV (test code=RDW) 14.3 % 11.5-14.5 RED CELL DISTRIBUTION WIDTH SD (test code=RDW-SD) 49.1 fL 37.0-54.0 PLATELET COUNT (test code=PLT) 112 x10 3/uL 150-400 MEAN PLATELET VOLUME (test code=MPV) 9.6 fL 7.0-9.0 NEUTROPHIL % (test code=NT%) 66.9 % 56.0-77.0 IMMATURE GRANULOCYTE % (test code=IG%) 0.5 % 0.0-2.0 LYMPHOCYTE % (test code=LY%) 17.3 % 14.0-32.0 MONOCYTE % (test code=MO%) 11.8 % 4.8-9.0 EOSINOPHIL % (test code=EO%) 2.9 % 0.3-3.7 BASOPHIL % (test code=BA%) 0.6 % 0.0-2.0 NUCLEATED RBC % (test code=NRBC%) 0.0 % 0-0 NEUTROPHIL # (test code=NT#) 4.42 x10 3/uL 2.0-7.6 IMMATURE GRANULOCYTE # (test code=IG#) 0.03 x10 3/uL 0.00-0.03 LYMPHOCYTE # (test code=LY#) 1.14 x10 3/uL 1.0-3.8 MONOCYTE # (test code=MO#) 0.78 x10 3/uL 0.1-0.8 EOSINOPHIL # (test code=EO#) 0.19 x10 3/uL 0.0-0.2 BASOPHIL # (test code=BA#) 0.04 x10 3/uL 0.0-0.2 NUCLEATED RBC # (test code=NRBC#) 0.00 x10 3/uL 0.0-0.1 MANUAL DIFF REQUIRED (test code=MDIFF) NO [id number] 23:38:00* Test Item Value Reference Range Comments GLUBED (test code=GLUBED) 106 MG/DL 70-110 Performed by certified auxiliary equipment operator at [facility] [id number] 17:29:00* Test Item Value Reference Range Comments GLUBED (test code=GLUBED) 120 MG/DL 70-110 Performed by certified auxiliary equipment operator at [facility] [id number] 11:51:00* Test Item Value Reference Range Comments GLUBED (test code=GLUBED) 228 MG/DL 70-110 Performed by certified auxiliary equipment operator at [facility] ARTERIAL BLOOD [id number] 06:50:00* Test Item Value Reference Range Comments ARTERIAL BLOOD GAS PH (test code=PHA) 7.309 7.35-7.45 ARTERIAL BLOOD GAS PCO2 (test code=PCO2A) 39.2 mmHg 35-45 ARTERIAL BLOOD GAS PO2 (test code=PO2A) 478 mmHg 80-100 BICARBONATE TOTAL HCO3 (test code=HCO3) 19.7 mmol/L 22.0-26.0 BASE EXCESS (test code=GISELA) -7.0 mmol/L -4-4 ABG O2 SATURATION (test code=SATA) 100 % 90-100 FIO2 (test code=FIO2A) 100 % ABG DELIVERY (test code=ELBA) Vent ABG VENT MODE (test code=MODEA) AC v con ABG VENT RESP RATE (test code=RRA) 18 /MIN ABG TIDAL VOLUME (test code=TVA) 450 ml ABG PEEP (test code=PEEPA) 5 cmH2O Performed by certified auxiliary equipment operator at [facility] ABG TEMPERATURE (test code=TEMPA) 98.6 F ABG SITE (test code=SITEA) L Rad PREDICTED AA GRADIENT (test code=AP) 173 PREDICTED PO2 (test code=OP) 493 a/A RATIO (test code=RATIO) 0.72 TCO2 ARTERIAL (test code=TCO2A) 21 A-A GRADIENT (test code=AAGRADE) 188 [id number] 06:49:00* Test Item Value Reference Range Comments GLUBED (test code=GLUBED) 271 mg/dL 74-106 Performed by certified auxiliary equipment operator at [facility] DRUGS OF ABUSE SCREEN [id number] 06:03:00* Test Item Value Reference Range Comments URN COCAINE (test code=COCAURN) NEGATIVE NEGATIVE URN CANNABINOIDS (test code=CANNABURN) NEGATIVE NEGATIVE URN AMPHETAMINE (test code=AMPHETURN) NEGATIVE NEGATIVE URN BARBITURATE (test code=BARBITURN) NEGATIVE NEGATIVE URN BENZODIAZEPINE (test code=BENZOURN) POSITIVE NEGATIVE Cut-off value:200 ng/mL URN OPIATES (test code=OPIATURN) NEGATIVE NEGATIVE Cut-off value:2000 ng/mL URN PHENCYCLIDINE (PCP) (test code=PHENCURN) NEGATIVE NEGATIVE Cutoffs:Barbiturates 200 ng/mLBenzodiazepines 200 ng/mLTHC Cannabinoids 50 ng/mLOpiates(Morphine) 2000 ng/mLAmphetamine 1000 ng/mLCocaine 300 ng/mLPCP phencyclidine 25 ng/mL Unconfirmed screening results shouldnot be used for non-medical purposes. DRUGS OF ABUSE SCREEN [id number] 05:51:00* Test Item Value Reference Range Comments URN COCAINE (test code=COCAURN) NEGATIVE NEGATIVE URN CANNABINOIDS (test code=CANNABURN) NEGATIVE NEGATIVE URN AMPHETAMINE (test code=AMPHETURN) NEGATIVE NEGATIVE URN BARBITURATE (test code=BARBITURN) NEGATIVE NEGATIVE URN BENZODIAZEPINE (test code=BENZOURN) NEGATIVE URN OPIATES (test code=OPIATURN) NEGATIVE NEGATIVE Cut-off value:2000 ng/mL URN PHENCYCLIDINE (PCP) (test code=PHENCURN) NEGATIVE NEGATIVE Cutoffs:Barbiturates 200 ng/mLBenzodiazepines 200 ng/mLTHC Cannabinoids 50 ng/mLOpiates(Morphine) 2000 ng/mLAmphetamine 1000 ng/mLCocaine 300 ng/mLPCP phencyclidine 25 ng/mL Unconfirmed screening results shouldnot be used for non-medical purposes. URINALYSIS [id number] 05:40:00* Test Item Value Reference Range Comments UA COLOR (test code=COLU) YELLOW YEL/STRAW UA APPEARANCE (test code=APPU) CLEAR CLEAR UA GLUCOSE DIPSTICK (test code=DGLUU) 3+ NEGATIVE UA BILIRUBIN DIPSTICK (test code=BILU) NEGATIVE NEGATIVE UA KETONE DIPSTICK (test code=KETU) NEGATIVE NEGATIVE UA SPECIFIC GRAVITY (test code=SGU) 1.054 1.005-1.030 UA BLOOD DIPSTICK (test code=KILO) 3+ NEGATIVE UA PH DIPSTICK (test code=PRICILA) 5.0 5.0-7.0 UA PROTEIN DIPSTICK (test code=PROU) 2+ NEGATIVE UA UROBILINIOGEN DIPSTICK (test code=URO) 0.2 mg/dL 0.2-1.0 UA NITRITE DIPSTICK (test code=ELIOT) NEGATIVE NEGATIVE UA LEUKOCYTE ESTERASE DIPSTICK (test code=LEUU) NEGATIVE NEGATIVE UA WBC (test code=WBCU) 4-9 WBC/HPF 0-3 UA RBC (test code=RBCU) >50 RBC/HPF 0-3 UA BACTERIA (test code=BACU) TRACE /HPF NONE SEEN UA SQUAMOUS CELLS (test code=SQU) 0-5 /HPF NONE SEEN UA MUCUS (test code=MUCU) TRACE /LPF NONE SEEN - CT HEAD/BRAIN W/O [id number] 05:21:00 Name: LESVIA RUSSO [facility] : 1980 Age/S: 38 / M [address] [place] [address] Unit #: [id number] Loc: [place] [address] Phys: Marcelo Rogers MD Acct: [id number] Dis Date: Status: ADM IN PHONE #: [phone] Exam Date: 07/14/2018 0436 FAX #: [phone] Reason: autoped, septum pellucidum bleed, ? VALENTINO EXAMS: CPT CODE: [id number] CT HEAD/BRAIN W/O CONT [id number] EXAM: CT, CT HEAD/BRAIN W/O CONTRAST: 07/14/2018, 0437 hours HISTORY: autoped, septum pellucidum bleed, ? VALENTINO COMPARISON: 05/19/2018. TECHNIQUE: CT images were obtained from the foramen magnum to the vertex without the use of intravenous contrast on a multidetector CT. CT imaging was performed with exposure control parameters to reduce radiation dose. Coronal and sagittal reconstructions were obtained. CT radiation dose DLP: 472.16 mGy-cm FINDINGS: Beam hardening artifact limits the optimal evaluation of base of brain and posterior fossa. BRAIN PARENCHYMA: Mild diffuse brain atrophy seen. The periventricular white matter appears unremarkable. No focal mass lesions on this noncontrast head CT. No significant mass effect, midline shift or edema. There is trace 7 mm x 4 mm x 5 mm (AP x transverse x CC) bleed in the septum pellucidum. No low attenuation demarcating areas on this non-contrast CT to suggest subacute stroke. VENTRICLES: The lateral ventricles, third and fourth ventricles appear unremarkable. The basilar cisterns are normal. ORBITS, MASTOIDS AND PARANASAL SINUSES: The visualized orbits are unremarkable. The visualized paranasal sinuses are unremarkable. The mastoid air cells are clear. SKULL: There are no osseous abnormalities. Right frontoparietal scalp swelling and scalp hematoma with overlying skin staple. Left nasal bone fracture. If there is further concern for intracranial pathology or acute stroke, MRI of the brain may be performed for complete assessment. IMPRESSION: 1. Small hemorrhage in the septum pellucidum., Not common site for hemorrhage in trauma. If indicated, further evaluation with MRI should be considered. 2. No noncontrast CT evidence of midline shift hydr ocephalus, or PAGE 1 Signed Report (CONTINUED) Name: LESVIA RUSSO [facility] : 1980 Age/S: 38 / M [address] [place] [address] Unit #: [id number] Loc: [place] [address] [facility] s: Marcelo Rogers MD Acct: [id number] Dis Date: Status: ADM IN PHONE #: [phone] Exam Date: 07/14/2018 0439 FAX #: [phone] Reason: autoped, septum pellucidum bleed, ? VALNETINO EXAMS: CPT CODE: [id number] CT HEAD/BRAIN W/O CONT 33548 <Continued> subacute stroke. 3. Right frontoparietal scalp swelling and scalp hematoma 4. Left nasal bone fracture, age undetermined. Findings were discussed with Dr. Hernandez on 05/14/2018, 0519 hours SL: FLACAH at 0521 Reported and signed by: Josse Chowdhury M.D. CC: Marcelo Rogers; Kaya Hernandez MD Technologist:Ivan Saab, RT(R)(CT) CTDI: DLP: Trnscb Date/Time: 07/14/2018 (520) [email or web address] Orig Print D/T: S: 07/14/2018 (2584) PAGE 2 Signed Report COMPREHENSIVE METABOLIC [id number] 04:53:00* Test Item Value Reference Range Comments SODIUM (test code=NA) 141 mEq/L 134-147 POTASSIUM (test code=K) 3.7 mEq/L 3.4-5.0 CHLORIDE (test code=CL) 110 mEq/L 100-108 CARBON DIOXIDE (test code=CO2) 20 mEq/L 21-33 ANION GAP (test code=GAP) 15 0-20 GLUCOSE (test code=GLU) 229 mg/dL 70-110 BLOOD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 [id number] 22:36:00* Test Item Value Reference Range Comments ALCOHOL (test code=ALC) mg/dL 0-3 URINALYSIS [id number] 22:33:00* Test Item Value Reference Range Comments UA COLOR (test code=COLU) YELLOW YELLOW UA APPEARANCE (test code=APPU) CLEAR CLEAR UA GLUCOSE DIPSTICK (test code=DGLUU) NEGATIVE mg/dL NEGATIVE UA BILIRUBIN DIPSTICK (test code=BILU) NEGATIVE mg/dL NEGATIVE UA KETONE DIPSTICK (test code=KETU) NEGATIVE mg/dL NEGATIVE UA SPECIFIC GRAVITY (test code=SGU) 1.019 1.001-1.035 UA BLOOD DIPSTICK (test code=KILO) 0.1 mg/dL (1+) mg/dL NEGATIVE UA PH DIPSTICK (test code=PRICILA) 6.0 5.0-8.0 UA PROTEIN DIPSTICK (test code=PROU) 300 (3+) mg/dL NEGATIVE UA UROBILINIOGEN DIPSTICK (test code=URO) Normal mg/dL NEGATIVE UA NITRITE DIPSTICK (test code=ELIOT) NEGATIVE NEGATIVE UA LEUKOCYTE ESTERASE W REFLEX (test code=LEUUR) NEGATIVE Teo/uL NEGATIVE UA WBC (test code=WBCU) 0-5 per HPF 0-5 UA RBC (test code=RBCU) 0-2 #/HPF 0-5 UA EPITHELIAL CELLS (test code=EPIU) FEW per HPF FEW UA BACTERIA (test code=BACU) NONE SEEN #/HPF NONE UA MUCUS (test code=MUCU) FEW #/LPF FEW Urine Source? Clean CatchDRUGS OF ABUSE SCREEN [id number] 22:33:00* Test Item Value Reference Range Comments URN COCAINE (test code=COCAURN) <300 ng/mL URN CANNABINOIDS (test code=CANNABURN) <50 ng/mL URN AMPHETAMINE (test code=AMPHETURN) <1000 ng/mL URN BARBITURATE (test code=BARBITURN) <200 ng/mL URN BENZODIAZEPINE (test code=BENZOURN) <200 ng/mL URN OPIATES (test code=OPIATURN) <300 ng/mL URN PHENCYCLIDINE (PCP) (test code=PHENCURN) <25 ng/mL URN METHADONE (test code=METHAURN) <300 ng/mL Urine Source? Clean CatchURINALYSIS [id number] 22:29:00* Test Item Value Reference Range Comments UA COLOR (test code=COLU) YELLOW YELLOW UA APPEARANCE (test code=APPU) CLEAR CLEAR UA GLUCOSE DIPSTICK (test code=DGLUU) NEGATIVE mg/dL NEGATIVE UA BILIRUBIN DIPSTICK (test code=BILU) NEGATIVE mg/dL NEGATIVE UA KETONE DIPSTICK (test code=KETU) NEGATIVE mg/dL NEGATIVE UA SPECIFIC GRAVITY (test code=SGU) 1.019 1.001-1.035 UA BLOOD DIPSTICK (test code=KILO) 0.1 mg/dL (1+) mg/dL NEGATIVE UA PH DIPSTICK (test code=PRICILA) 6.0 5.0-8.0 UA PROTEIN DIPSTICK (test code=PROU) 300 (3+) mg/dL NEGATIVE UA UROBILINIOGEN DIPSTICK (test code=URO) Normal mg/dL NEGATIVE UA NITRITE DIPSTICK (test code=ELIOT) NEGATIVE NEGATIVE UA LEUKOCYTE ESTERASE W REFLEX (test code=LEUUR) NEGATIVE Teo/uL NEGATIVE UA WBC (test code=WBCU) per HPF 0-5 UA RBC (test code=RBCU) per HPF 0-5 UA EPITHELIAL CELLS (test code=EPIU) per HPF Few UA BACTERIA (test code=BACU) per HPF NONE Urine Source? Clean CatchDRUGS OF ABUSE SCREEN [id number] 22:29:00* Test Item Value Reference Range Comments URN COCAINE (test code=COCAURN) <300 ng/mL URN CANNABINOIDS (test code=CANNABURN) <50 ng/mL URN AMPHETAMINE (test code=AMPHETURN) <1000 ng/mL URN BARBITURATE (test code=BARBITURN) <200 ng/mL URN BENZODIAZEPINE (test code=BENZOURN) <200 ng/mL URN OPIATES (test code=OPIATURN) <300 ng/mL URN PHENCYCLIDINE (PCP) (test code=PHENCURN) <25 ng/mL URN METHADONE (test code=METHAURN) <300 ng/mL Urine Source? Clean CatchCBC W/O [id number] 22:20:00* Test Item Value Reference Range Comments WHITE BLOOD CELL (test code=WBC) 5.1 K/mm3 4.5-12.5 RED BLOOD CELL (test code=RBC) 4.35 mill/mm3 4.0-5.8 HEMOGLOBIN (test code=HGB) 13.2 gram/dL 13.0-17.5 HEMATOCRIT (test code=HCT) 41.3 % 42.0-52.0 MEAN CELL VOLUME (test code=MCV) 94.9 fL 80-98 MEAN CELL HGB (test code=MCH) 30.3 picogram 27.0-33.0 MEAN CELL HGB CONCETRATION (test code=MCHC) 32.0 gram/dL 33.0-36.0 RED CELL DISTRIBUTION WIDTH (test code=RDW) 13.7 % 11.6-16.2 PLATELET COUNT (test code=PLT) 176 K/mm3 150-450 MEAN PLATELET VOLUME (test code=MPV) 8.7 fL 6.7-11.0 BASIC METABOLIC [id number] 20:07:00* Test Item Value Reference Range Comments SODIUM (test code=NA) 140 mmol/L 136-145 POTASSIUM (test code=K) 3.3 mmol/L 3.5-5.1 CHLORIDE (test code=CL) 104.0 mmol/L 98-107 CARBON DIOXIDE (test code=CO2) 25.0 mmol/L 21-32 ANION GAP (test code=GAP) 14.3 10-20 GLUCOSE (test code=GLU) 117 mg/dL 74-106 BLOOD UREA NITROGEN (test code=BUN) 5 mg/dL 7-18 GLOMERULAR FILTRATION RATE (test code=GFR) > 60 mL/min >=60 Estimated GFR by using Modified MDRD formula.Chronic kidney disease is defined as either kidney damageor GFR <60 mL/min/1.73 m2 for >3 months. CREATININE (test code=CREAT) 0.70 mg/dL 0.7-1.3 BUN/CREATININE RATIO (test code=BUN/CREA) 7.1 10-20 CALCIUM (test code=CA) 8.8 mg/dL 8.5-10.1 HEPATIC FUNCTION [id number] 20:07:00* Test Item Value Reference Range Comments TOTAL PROTEIN (test code=PROT) 7.7 gram/dL 6.4-8.2 ALBUMIN (test code=ALB) 4.0 g/dL 3.4-5.0 GLOBULIN (test code=GLOB) 3.7 gram/dL 2.7-4.2 ALBUMIN/GLOBULIN RATIO (test code=A/G) 1.1 0.75-1.50 BILIRUBIN TOTAL (test code=BILT) 1.00 mg/dL 0.0-1.0 BILIRUBIN DIRECT (test code=BILD) 0.40 mg/dL 0.0-0.20 SGOT/AST (test code=AST) 36 IUnit/L 15-37 SGPT/ALT (test code=ALT) 46 IUnit/L 12-78 ALKALINE PHOSPHATASE TOTAL (test code=ALKP) 97 IUnit/L 45-117 Note change in reference range due to change in reagent. CREATINE KINASE (CK)2018-05-19 20:07:00* Test Item Value Reference Range Comments CREATINE KINASE (CK) (test code=CK) 458 IUnit/L 26-208 [id number] 20:07:00* Test Item Value Reference Range Comments LIPASE (test code=LIP) 113 U/L 73.0-393.0 [id number] 20:07:00* Test Item Value Reference Range Comments TROPONIN-I (test code=TROPI) <0.015 ng/mL 0-0.045 [id number] 20:07:00* Test Item Value Reference Range Comments ALCOHOL (test code=ALC) < 3 mg/dL 0.0-3.0 INTERPRETIVE DATA NOTE: POSITIVE SCREENING RESULTS SHOULD BE CONSIDERED PRESUMPTIVE.WHEN COLLECTED FOR MEDICAL PURPOSES ONLY. SPECIMEN WILL NOTBE COLLECTED BY CHAIN OF CUSTODY.IF A CONFIRMATION OF POSITIVE RESULTS IS DESIRED, ACONFIRMATION TEST MUST BE REQUESTED BY THE PHYSICIAN AT ANADDITIONAL CHARGE TO THE PATIENT. - CT C-SPINE W/O [id number] 20:05:00 Name: LESVIA RUSSO [facility] : 1980 Age/S: 37 / M [address] [facility] Unit #: [id number] Loc: [place] [address] Phys: Richie Bella MD Acct: [id number] Dis Date: Status: PRE ER PHONE #: [phone] Exam Date: 05/19/2018 1950 FAX #: [phone] Reason: NECK PAIN EXAMS: CPT CODE: [id number] CT C-SPINE W/O CONTRAST [id number] REASON FOR EXAM: NECK PAIN EXAM ORDER DATE: 05/19/2018 7:00 PM Ordering Mable: Richie Bella MD PROCEDURE: - CT C-SPINE W/O CONTRAST FINDINGS: CT images of the cervical spine were obtained without IV contrast at 2.5mm. Reconstructed coronal and sagittal images were also provided. Dose modulation, iterative reconstruction, and/or weight based adjustment of the MA/KV was utilized to reduce the radiation dose to as low as reasonably achievable. The osseous structures are intact. The central canal is patent. The disc spaces are maintained. IMPRESSION: Unremarkable cervical spine. at 2004 Reported and signed by: Gold Duong M.D. CC: Richie Bella MD Technologist:Edda Glynn RT(R),CT; CTDI: DLP: Trnscb Date/Time: 05/19/2018 (2004) [email or web address] Orig Print D/T: S: 05/19/2018 (2007) CTDI: DLP: PAGE 1 Signed Report - CT HEAD/BRAIN W/O [id number] 20:03:00 Name: LESVIA RUSSO [facility] : 1980 Age/S: 37 / M [address] [facility] Unit #: [id number] Loc: [place] [address] Phys: Richie Bella MD Acct: [id number] Dis Date: Status: PRE ER PHONE #: [phone] Exam Date: 05/19/2018 1950 FAX #: [phone] Reason: Seizure EXAMS: CPT CODE: [id number] CT HEAD/BRAIN W/O CONT [id number] REASON FOR EXAM: Seizure EXAM ORDER DATE: 05/19/2018 7:00 PM Ordering Mable: Richie Bella MD PROCEDURE: - CT HEAD/BRAIN W/O CONT COMPARISON: 07/16/2017 FINDINGS: CT images of the brain were obtained without IV contrast. Dose modulation, iterative reconstruction, and/or weight based adjustment of the MA/KV was utilized to reduce the radiation dose to as low as reasonably achievable. The brain parenchyma is within normal limits. The echols-white matter delineation is unremarkable. The ventricles, cisterns, and sulci are unremarkable. There is no evidence of hemorrhage, mass, mass effect. There is no evidence of acute or old infarct. The calvarium is intact. IMPRESSION: Unremarkable brain. at 2002 Reported and signed by: Gold Duong M.D. CC: Richie Bella MD Technologist:Edda Glynn RT(R),CT; CTDI: DLP: Trnscb Date/Time: 05/19/2018 (2002) [email or web address] Orig Print D/T: S: 05/19/2018 (2005) CTDI: DLP: PAGE 1 Signed Report BASIC METABOLIC [id number] 19:54:00* Test Item Value Reference Range Comments SODIUM (test code=NA) 140 mmol/L 136-145 POTASSIUM (test code=K) 3.3 mmol/L 3.5-5.1 CHLORIDE (test code=CL) 104.0 mmol/L 98-107 CARBON DIOXIDE (test code=CO2) mmol/L 21-32 ANION GAP (test code=GAP) 10-20 GLUCOSE (test code=GLU) mg/dL 74-106 BLOOD UREA NITROGEN (test code=BUN) mg/dL 7-18 GLOMERULAR FILTRATION RATE (test code=GFR) mL/min >=60 CREATININE (test code=CREAT) mg/dL 0.7-1.3 BUN/CREATININE RATIO (test code=BUN/CREA) 10-20 CALCIUM (test code=CA) mg/dL 8.5-10.1 HEPATIC FUNCTION [id number] 19:54:00* Test Item Value Reference Range Comments TOTAL PROTEIN (test code=PROT) gram/dL 6.4-8.2 ALBUMIN (test code=ALB) g/dL 3.4-5.0 GLOBULIN (test code=GLOB) gram/dL 2.7-4.2 ALBUMIN/GLOBULIN RATIO (test code=A/G) 0.75-1.50 BILIRUBIN TOTAL (test code=BILT) mg/dL 0.0-1.0 BILIRUBIN DIRECT (test code=BILD) mg/dL 0.0-0.20 SGOT/AST (test code=AST) IUnit/L 15-37 SGPT/ALT (test code=ALT) IUnit/L 12-78 ALKALINE PHOSPHATASE TOTAL (test code=ALKP) IUnit/L 45-117 CREATINE KINASE (CK)2018-05-19 19:54:00* Test Item Value Reference Range Comments CREATINE KINASE (CK) (test code=CK) IUnit/L 26-208 [id number] 19:54:00* Test Item Value Reference Range Comments LIPASE (test code=LIP) U/L 73.0-393.0 [id number] 19:54:00* Test Item Value Reference Range Comments TROPONIN-I (test code=TROPI) ng/mL 0-0.045 [id number] 19:54:00* Test Item Value Reference Range Comments ALCOHOL (test code=ALC) mg/dL 0-3 CBC W/O [id number] 19:47:00* Test Item Value Reference Range Comments WHITE BLOOD CELL (test code=WBC) 7.0 K/mm3 4.5-12.5 RED BLOOD CELL (test code=RBC) 4.34 mill/mm3 4.0-5.8 HEMOGLOBIN (test code=HGB) 13.1 gram/dL 13.0-17.5 HEMATOCRIT (test code=HCT) 38.6 % 42.0-52.0 MEAN CELL VOLUME (test code=MCV) 88.9 fL 80-98 MEAN CELL HGB (test code=MCH) 30.2 picogram 27.0-33.0 MEAN CELL HGB CONCETRATION (test code=MCHC) 33.9 gram/dL 33.0-36.0 RED CELL DISTRIBUTION WIDTH (test code=RDW) 13.1 % 11.6-16.2 PLATELET COUNT (test code=PLT) 212 K/mm3 150-450 MEAN PLATELET VOLUME (test code=MPV) 9.4 fL 6.7-11.0 [id number] 17:14:00* Test Item Value Reference Range Comments Accuchek (test code=ACU) 84 mg/dL 70-110 [id number] 11:02:00* Test Item Value Reference Range Comments Accuchek (test code=ACU) 186 mg/dL 70-110 [id number] 20:47:00* Test Item Value Reference Range Comments Accuchek (test code=ACU) 112 mg/dL 70-110 [id number] 20:12:00* Test Item Value Reference Range Comments Toxicology (test code=JACQUELYN) Not Detected NotDetected Toxicology (test code=PCP) Not Detected NotDetected Toxicology (test code=COCN) Not Detected NotDetected Toxicology (test code=METHAMPU) Not Detected NotDetected Toxicology (test code=OPIA) Not Detected NotDetected Toxicology (test code=AMPHU) Not Detected NotDetected Toxicology (test code=ASHWINI) Detected NotDetected Toxicology (test code=TRICY) Not Detected NotDetected Toxicology (test code=MTD) Not Detected NotDetected Toxicology (test code=BLAZE) Not Detected NotDetected Toxicology (test code=OXYCOD) Not Detected NotDetected Toxicology (test code=PPX) Not Detected NotDetected Toxicology (test code=MTCUTOFF) The [employer] Profile- V Panel for Qualitative Drugs ofAbuse assays are for presumptive screening testing only.The drug class and detection limits are as follows:Drug Class Detection LimitAmphetamine 500 ng/mL*Barbiturates 200 ng/mLBenzodiazepines 150 ng/mL*Cocaine 150 ng/mL*Methamphetamine 500 ng/mL*Methadone 200 ng/mL*Opiates 100 ng/mL*Oxycodone 100 ng/mLPCP 25 ng/mLPropoxyphene 300 ng/mLTricyclic Antidepressants 300 ng/mLCannabinoids (THC) 50 ng/mLTests which yield a presumptive positive result must betested using a more specific alternate chemical method inorder to obtain a confirmed analytical result. Additionalconfirmation and identification may be ordered on a routinebasis, if desired. Presumptive positive urines are held fortwo weeks. Urine Source: Urine Clean CatchChemistry - [id number] 19:06:00* Test Item Value Reference Range Comments Chemistry - Specials (test code=FT4) 0.84 ng/dL 0.70-1.48 [id number] 18:55:00* Test Item Value Reference Range Comments Chemistry (test code=VALP) Less than 12.5 ug/mL 50.0-100.0 Therapeutic Range: 50.0 - 100.0 ug/mL Date of next dose: .Time of next dose: .[id number] 16:41:00* Test Item Value Reference Range Comments Chemistry (test code=PROLAC) 12.13 ng/mL 3.46-19.40 Chemistry - [id number] 16:40:00* Test Item Value Reference Range Comments Chemistry - Specials (test code=TSH3) 5.2332 uIU/mL 0.35-4.94 [id number] 13:11:00* Test Item Value Reference Range Comments Chemistry (test code=NA-T) 139 mmol/L 136-145 Chemistry (test code=K-T) 4.0 mmol/L 3.5-5.1 Chemistry (test code=CL) 103 mmol/L 98-107 Chemistry (test code=CO2) 22 mmol/L 22-29 Chemistry (test code=ANGP) 18 mmol/L 10-20 Chemistry (test code=BUN) 10 mg/dL 8.9-20.6 Chemistry (test code=CREATT) 0.90 mg/dL 0.7-1.3 Chemistry (test code=EGFRMDRD) Greater than 90 Reference Range for Estimated GFR: Greater than 90 mL/min/1.73 m2NOTE:The MDRD equation has not been validated for use with theelderly (over 70 years of age), women, patientswith serious comorbid condition or persons with extremes ofbody size, muscle mass, or nutritional status. Chemistry (test code=GLU-T) 95 mg/dL 70-105 Chemistry (test code=CA) 10.3 mg/dL 7.8-10.44 Chemistry (test code=TBILI) 1.6 mg/dL 0.2-1.2 Chemistry (test code=TP) 8.3 g/dL 6.0-8.3 Chemistry (test code=ALB) 4.8 g/dL 3.5-5.0 Chemistry (test code=GLOB) 3.5 g/dL 2.4-3.5 Chemistry (test code=AG) 1.4 g/dL 1.2-2.2 Chemistry (test code=ALP) 97 U/L 40-150 Chemistry (test code=AST) 42 U/L 5-34 Chemistry (test code=ALT) 67 U/L 8-55 [id number] 13:11:00* Test Item Value Reference Range Comments Chemistry (test code=CK) 240 U/L 30-200 [id number] 12:49:00* Test Item Value Reference Range Comments Hematology (test code=WBCT) 8.8 thou/uL 4.8-10.8 Hematology (test code=RBCT) 4.78 mill/uL 4.70-6.10 Hematology (test code=HGBT) 15.2 g/dL 14.0-18.0 Hematology (test code=HCTT) 45.4 % 42.0-52.0 Hematology (test code=MCV) 94.9 fL 78.0-98.0 Hematology (test code=MCH) 31.7 pg 27.0-31.0 Hematology (test code=MCHC) 33.5 g/dL 32.0-36.0 Hematology (test code=RDW) 12.5 % 11.5-14.5 Hematology (test code=PLTT) 304 thou/uL 130-400 Hematology (test code=MPV) 6.8 fL 7.4-10.4 Hematology (test code=%NEUT) 58.3 % 42.0-75.0 Hematology (test code=%LYMPH) 28.9 % 21.0-51.0 Hematology (test code=%MONO) 9.2 % 0.0-10.0 Hematology (test code=%EOS) 2.4 % 0.0-10.0 Hematology (test code=%BASO) 1.2 % 0.0-1.0 Hematology (test code=NEUT#) 5.1 thou/uL 1.40-6.50 Hematology (test code=LYMPH#) 2.5 thou/uL 1.20-3.40 Hematology (test code=MONO#) 0.8 thou/uL 0.11-0.59 Hematology (test code=EOS#) 0.2 thou/uL 0.0-0.7 Hematology (test code=BASO#) 0.1 thou/uL 0.0-0.2 [id number] 01:44:00* Test Item Value Reference Range Comments Chemistry (test code=NA-T) 139 mmol/L 136-145 Chemistry (test code=K-T) 4.2 mmol/L 3.5-5.1 Chemistry (test code=CL) 102 mmol/L 98-107 Chemistry (test code=CO2) 19 mmol/L 22-29 Chemistry (test code=ANGP) 22 mmol/L 10-20 Chemistry (test code=BUN) 9 mg/dL 8.9-20.6 Chemistry (test code=CREATT) 1.01 mg/dL 0.7-1.3 Chemistry (test code=EGFRMDRD) 83 Reference Range for Estimated GFR: Greater than 90 mL/min/1.73 m2NOTE:The MDRD equation has not been validated for use with theelderly (over 70 years of age), women, patien tswith serious comorbid condition or persons with extremes ofbody size, muscle mass, or nutritional status. Chemistry (test code=GLU-T) 377 mg/dL 70-105 Chemistry (test code=CA) 9.3 mg/dL 7.8-10.44 Chemistry (test code=TBILI) 0.7 mg/dL 0.2-1.2 Chemistry (test code=TP) 7.8 g/dL 6.0-8.3 Chemistry (test code=ALB) 4.5 g/dL 3.5-5.0 Chemistry (test code=GLOB) 3.3 g/dL 2.4-3.5 Chemistry (test code=AG) 1.4 g/dL 1.2-2.2 Chemistry (test code=ALP) 154 U/L 40-150 Chemistry (test code=AST) 131 U/L 5-34 Chemistry (test code=ALT) 163 U/L 8-55 [id number] 01:35:00* Test Item Value Reference Range Comments Accuchek (test code=ACU) 327 mg/dL 70-110 Point of Care [id number] 01:26:00* Test Item Value Reference Range Comments Point of Care Testing (test code=POCpHv) 7.453 7.35-7.45 Point of Care Testing (test code=DJReWU4x) 32.7 mmHg 41.0-51.0 Point of Care Testing (test code=KNPjB5k) 127.3 mmHg 35.0-45.0 Point of Care Testing (test code=NMEDCJ4d) 22.9 mmol/L 22.0-29.0 Point of Care Testing (test code=POCBEv) -0.3 mmol/L 0 (+/- 2.5) Point of Care Testing (test code=POCO2v) 99.1 % 94-98 Point of Care Testing (test code=POCHCTVBG) 44.0 % 36-52 Point of Care Testing (test code=POCHGBVBG) 14.8 g/dL 12.0-18.0 Point of Care Testing (test code=POCNAVBG) 141.0 mmol/L 138-145 Point of Care Testing (test code=POCKVBG) 4.3 mmol/L 3.4-4.7 Point of Care Testing (test code=POCCLVBG) 107.0 mmol/L 98-113 Point of Care Testing (test code=GPCTZV4r) 23.9 mmol/L 1.0-85.0 Point of Care Testing (test code=POCCAVBG) 1.00 mmol/L 1.12-1.32 Point of Care Testing (test code=POCANGP) 11 mmol/L 10- Knfbkoxnkm7201-78-94 01:23:00* Test Item Value Reference Range Comments Hematology (test code=WBCT) 7.2 thou/uL 4.8-10.8 Hematology (test code=RBCT) 4.40 mill/uL 4.70-6.10 Hematology (test code=HGBT) 14.1 g/dL 14.0-18.0 Hematology (test code=HCTT) 41.1 % 42.0-52.0 Hematology (test code=MCV) 93.3 fL 78.0-98.0 Hematology (test code=MCH) 32.1 pg 27.0-31.0 Hematology (test code=MCHC) 34.4 g/dL 32.0-36.0 Hematology (test code=RDW) 12.5 % 11.5-14.5 Hematology (test code=PLTT) 243 thou/uL 130-400 Hematology (test code=MPV) 7.0 fL 7.4-10.4 Hematology (test code=%NEUT) 50.7 % 42.0-75.0 Hematology (test code=%LYMPH) 37.3 % 21.0-51.0 Hematology (test code=%MONO) 9.5 % 0.0-10.0 Hematology (test code=%EOS) 1.4 % 0.0-10.0 Hematology (test code=%BASO) 1.2 % 0.0-1.0 Hematology (test code=NEUT#) 3.7 thou/uL 1.40-6.50 Hematology (test code=LYMPH#) 2.7 thou/uL 1.20-3.40 Hematology (test code=MONO#) 0.7 thou/uL 0.11-0.59 Hematology (test code=EOS#) 0.1 thou/uL 0.0-0.7 Hematology (test code=BASO#) 0.1 thou/uL 0.0-0.2 Culture, [id number] 12:22:00* Test Item Value Reference Range Comments Culture, Blood (test code=BC) NG5 Nurse will mqnjFsovdvbqvq8782-19-84 03:39:00* Test Item Value Reference Range Comments Hematology (test code=SED) 23 mm/hr Less than 15 Npqzcszzai7873-20-74 03:32:00* Test Item Value Reference Range Comments Urinalysis (test code=UACLR) YELLOW Yellow Urinalysis (test code=UACLY) CLEAR Clear Urinalysis (test code=SPGR) 1.013 1.002-1.036 Urinalysis (test code=PRICILA) 6.5 5.0-9.0 Urinalysis (test code=UALEU) Negative Negative Urinalysis (test code=UANIT) Negative Negative Urinalysis (test code=PROUADIP) 100 mg/dL Neg-Trace Urinalysis (test code=GLUCU) 250 mg/dL Negative Urinalysis (test code=KETU) Negative mg/dL Negative Urinalysis (test code=UAUROB) 1.0 mg/dL 0.2-1.0 Urinalysis (test code=UABIL) Negative Negative Urinalysis (test code=UABLD) Negative Negative Urinalysis (test code=UARBC) 0-3 HPF 0-3 Urinalysis (test code=UAWBC) None Seen HPF 0-3 Urinalysis (test code=UASQUAM) None Seen HPF 0-3 Urinalysis (test code=UABAC) None Seen HPF None Seen Urinalysis (test code=UACAST) 0-3 HYALINE CAST LPF 0-3 Hyaline Urine Source: Urine GqbdrsBqxflkwpk1965-24-49 03:25:00* Test Item Value Reference Range Comments Chemistry (test code=CRP) Less than 0.50 mg/dL =or < 0.5 What test does the doctor want? C-REACTIVE PROTEIN (CRP)Lmqiumkfp6630-50-24 02:27:00* Test Item Value Reference Range Comments Chemistry (test code=ETOH) 31 mg/dL Less than 10 The pharmacological response to blood alcohol levels mayvary from individual to individual. Negative: Less than 10 mg/dL Toxic: 50 - 100 mg/dL Depression of LOG STACKER OPERATOR: Greater than 100 mg/dL Fatalities reported: Greater than 400 mg/dL Xezsqgcuw8297-53-16 02:11:00* Test Item Value Reference Range Comments Chemistry (test code=NA-T) 138 mmol/L 136-145 Chemistry (test code=K-T) 3.8 mmol/L 3.5-5.1 Chemistry (test code=CL) 100 mmol/L 98-107 Chemistry (test code=CO2) 22 mmol/L 22-29 Chemistry (test code=ANGP) 20 mmol/L 10-20 Chemistry (test code=BUN) 6 mg/dL 8.9-20.6 Chemistry (test code=CREATT) 0.82 mg/dL 0.7-1.3 Chemistry (test code=EGFRMDRD) Greater than 90 Reference Range for Estimated GFR: Greater than 90 mL/min/1.73 m2NOTE:The MDRD equation has not been validated for use with theelderly (over 70 years of age), women, patientswith serious comorbid condition or persons with extremes ofbody size, muscle mass, or nutritional status. Chemistry (test code=GLU-T) 253 mg/dL 70-105 Chemistry (test code=CA) 9.6 mg/dL 7.8-10.44 Chemistry (test code=TBILI) 1.1 mg/dL 0.2-1.2 Chemistry (test code=TP) 8.6 g/dL 6.0-8.3 Chemistry (test code=ALB) 4.7 g/dL 3.5-5.0 Chemistry (test code=GLOB) 3.9 g/dL 2.4-3.5 Chemistry (test code=AG) 1.2 g/dL 1.2-2.2 Chemistry (test code=ALP) 99 U/L 40-150 Chemistry (test code=AST) 51 U/L 5-34 Chemistry (test code=ALT) 49 U/L 8-55 Chemistry - [id number] 02:07:00* Test Item Value Reference Range Comments Chemistry - Lactate (test code=LACTSEP-T) 2.0 mmol/L 0.5-2.2 Ezmiopftta0783-67-81 01:50:00* Test Item Value Reference Range Comments Hematology (test code=WBCT) 8.4 thou/uL 4.8-10.8 Hematology (test code=RBCT) 4.55 mill/uL 4.70-6.10 Hematology (test code=HGBT) 14.9 g/dL 14.0-18.0 Hematology (test code=HCTT) 41.8 % 42.0-52.0 Hematology (test code=MCV) 91.9 fL 78.0-98.0 Hematology (test code=MCH) 32.7 pg 27.0-31.0 Hematology (test code=MCHC) 35.6 g/dL 32.0-36.0 Hematology (test code=RDW) 12.8 % 11.5-14.5 Hematology (test code=PLTT) 231 thou/uL 130-400 Hematology (test code=MPV) 6.7 fL 7.4-10.4 Hematology (test code=%NEUT) 56.8 % 42.0-75.0 Hematology (test code=%LYMPH) 32.2 % 21.0-51.0 Hematology (test code=%MONO) 6.3 % 0.0-10.0 Hematology (test code=%EOS) 3.7 % 0.0-10.0 Hematology (test code=%BASO) 1.1 % 0.0-1.0 Hematology (test code=NEUT#) 4.7 thou/uL 1.40-6.50 Hematology (test code=LYMPH#) 2.7 thou/uL 1.20-3.40 Hematology (test code=MONO#) 0.5 thou/uL 0.11-0.59 Hematology (test code=EOS#) 0.3 thou/uL 0.0-0.7 Hematology (test code=BASO#) 0.1 thou/uL 0.0-0.2 Sqvmcaye4995-20-69 19:13:00* Test Item Value Reference Range Comments Accuchek (test code=ACU) 236 mg/dL 70-110 Wmzwwqtry6729-87-14 09:27:00* Test Item Value Reference Range Comments Chemistry (test code=NA-T) 141 mmol/L 136-145 Chemistry (test code=K-T) 4.0 mmol/L 3.5-5.1 Chemistry (test code=CL) 102 mmol/L 98-107 Chemistry (test code=CO2) 24 mmol/L 22-29 Chemistry (test code=ANGP) 19 mmol/L 10-20 Chemistry (test code=BUN) 7 mg/dL 8.9-20.6 Chemistry (test code=CREATT) 0.78 mg/dL 0.7-1.3 Chemistry (test code=EGFRMDRD) Greater than 90 Reference Range for Estimated GFR: Greater than 90 mL/min/1.73 m2NOTE:The MDRD equation has not been validated for use with theelderly (over 70 years of age), women, patientswith serious comorbid condition or persons with extremes ofbody size, muscle mass, or nutritional status. Chemistry (test code=GLU-T) 128 mg/dL 70-105 Chemistry (test code=CA) 9.6 mg/dL 7.8-10.44 Chemistry (test code=TBILI) 0.8 mg/dL 0.2-1.2 Chemistry (test code=TP) 8.2 g/dL 6.0-8.3 Chemistry (test code=ALB) 4.4 g/dL 3.5-5.0 Chemistry (test code=GLOB) 3.8 g/dL 2.4-3.5 Chemistry (test code=AG) 1.2 g/dL 1.2-2.2 Chemistry (test code=ALP) 89 U/L 40-150 Chemistry (test code=AST) 32 U/L 5-34 Chemistry (test code=ALT) 35 U/L 8-55 Vnlihjvtk1323-76-44 09:27:00* Test Item Value Reference Range Comments Chemistry (test code=ACET-T) Less than 6.0 mcg/mL 10.0-30.0 Therapeutic Range: 10.0 - 30.0 ug/mLToxic Range: Possible toxicity: 150 - 200 ug/mL Probable toxicity: Greater than 200 ug/mL*IMPORTANT TESTING INFORMATION* The half-life of NAC is 2 hours. The total NAC clearanceis 5.6 hours for adults and 11 hours for Newborns. Testing acetaminophen levels prior to a reasonable timeframe for clearance can cause falsely decreasedacetaminophen levels. Chemistry (test code=ETOH) 141 mg/dL Less than 10 The pharmacological response to blood alcohol levels mayvary from individual to individual. Negative: Less than 10 mg/dL Toxic: 50 - 100 mg/dL Depression of LOG STACKER OPERATOR: Greater than 100 mg/dL Fatalities reported: Greater than 400 mg/dL Chemistry (test code=SALCY) Less than 8.0 mg/dL 15.0-30.0 Kfjbfspibv3092-23-50 09:11:00* Test Item Value Reference Range Comments Urinalysis (test code=UACLR) YELLOW Yellow Urinalysis (test code=UACLY) CLEAR Clear Urinalysis (test code=SPGR) 1.009 1.002-1.036 Urinalysis (test code=PRICILA) 6.5 5.0-9.0 Urinalysis (test code=UALEU) Negative Negative Urinalysis (test code=UANIT) Negative Negative Urinalysis (test code=PROUADIP) 30 mg/dL Neg-Trace Urinalysis (test code=GLUCU) Negative mg/dL Negative Urinalysis (test code=KETU) Negative mg/dL Negative Urinalysis (test code=UAUROB) 1.0 mg/dL 0.2-1.0 Urinalysis (test code=UABIL) Negative Negative Urinalysis (test code=UABLD) Negative Negative Urinalysis (test code=UARBC) 0-3 HPF 0-3 Urinalysis (test code=UAWBC) 0-3 HPF 0-3 Urinalysis (test code=UASQUAM) None Seen HPF 0-3 Urinalysis (test code=UABAC) None Seen HPF None Seen Urinalysis (test code=UACAST) 0-3 HYALINE CAST LPF 0-3 Hyaline Urine Source: Urine AqsukzUynptuiodd7119-22-23 09:09:00* Test Item Value Reference Range Comments Toxicology (test code=JACQUELYN) Not Detected NotDetected Toxicology (test code=PCP) Not Detected NotDetected Toxicology (test code=COCN) Not Detected NotDetected Toxicology (test code=METHAMPU) Not Detected NotDetected Toxicology (test code=OPIA) Detected NotDetected Toxicology (test code=AMPHU) Not Detected NotDetected Toxicology (test code=ASHWINI) Detected NotDetected Toxicology (test code=TRICY) Not Detected NotDetected Toxicology (test code=MTD) Not Detected NotDetected Toxicology (test code=BLAZE) Not Detected NotDetected Toxicology (test code=OXYCOD) Not Detected NotDetected Toxicology (test code=PPX) Not Detected NotDetected Toxicology (test code=MTCUTOFF) The [employer] Profile- V Panel for Qualitative Drugs ofAbuse assays are for presumptive screening testing only.The drug class and detection limits are as follows:Drug Class Detection LimitAmphetamine 500 ng/mL*Barbiturates 200 ng/mLBenzodiazepines 150 ng/mL*Cocaine 150 ng/mL*Methamphetamine 500 ng/mL*Methadone 200 ng/mL*Opiates 100 ng/mL*Oxycodone 100 ng/mLPCP 25 ng/mLPropoxyphene 300 ng/mLTricyclic Antidepressants 300 ng/mLCannabinoids (THC) 50 ng/mLTests which yield a presumptive positive result must betested using a more specific alternate chemical method inorder to obtain a confirmed analytical result. Additionalconfirmation and identification may be ordered on a routinebasis, if desired. Presumptive positive urines are held fortwo weeks. Urine Source: Urine DkyycaJpfoqxdcde6196-63-02 08:37:00* Test Item Value Reference Range Comments Hematology (test code=WBCT) 10.4 thou/uL 4.8-10.8 Hematology (test code=RBCT) 4.63 mill/uL 4.70-6.10 Hematology (test code=HGBT) 14.6 g/dL 14.0-18.0 Hematology (test code=HCTT) 42.8 % 42.0-52.0 Hematology (test code=MCV) 92.4 fL 78.0-98.0 Hematology (test code=MCH) 31.4 pg 27.0-31.0 Hematology (test code=MCHC) 34.0 g/dL 32.0-36.0 Hematology (test code=RDW) 12.4 % 11.5-14.5 Hematology (test code=PLTT) 321 thou/uL 130-400 Hematology (test code=MPV) 7.0 fL 7.4-10.4 Hematology (test code=%NEUT) 54.8 % 42.0-75.0 Hematology (test code=%LYMPH) 33.7 % 21.0-51.0 Hematology (test code=%MONO) 6.2 % 0.0-10.0 Hematology (test code=%EOS) 4.1 % 0.0-10.0 Hematology (test code=%BASO) 1.2 % 0.0-1.0 Hematology (test code=NEUT#) 5.7 thou/uL 1.40-6.50 Hematology (test code=LYMPH#) 3.5 thou/uL 1.20-3.40 Hematology (test code=MONO#) 0.6 thou/uL 0.11-0.59 Hematology (test code=EOS#) 0.4 thou/uL 0.0-0.7 Hematology (test code=BASO#) 0.1 thou/uL 0.0-0.2 Urdnlmpq3053-61-56 16:10:00* Test Item Value Reference Range Comments Accuchek (test code=ACU) 136 mg/dL 70-110 Gghrfzag6834-46-92 12:18:00* Test Item Value Reference Range Comments Accuchek (test code=ACU) 203 mg/dL 70-110 Ubufrmel0514-99-95 07:48:00* Test Item Value Reference Range Comments Accuchek (test code=ACU) 223 mg/dL 70-110 Dpgejosk9616-81-32 06:58:00* Test Item Value Reference Range Comments Accuchek (test code=ACU) 197 mg/dL 70-110 Chemistry - Yjnwmbzj4709-74-76 06:24:00* Test Item Value Reference Range Comments Chemistry - Specials (test code=TSH3) 5.8801 uIU/mL 0.35-4.94 Zmrfdkiup1358-66-78 06:05:00* Test Item Value Reference Range Comments Chemistry (test code=NA-T) 142 mmol/L 136-145 Chemistry (test code=K-T) 3.8 mmol/L 3.5-5.1 Chemistry (test code=CL) 103 mmol/L 98-107 Chemistry (test code=CO2) 29 mmol/L 22-29 Chemistry (test code=ANGP) 14 mmol/L 10-20 Chemistry (test code=BUN) 8 mg/dL 8.9-20.6 Chemistry (test code=CREATT) 0.82 mg/dL 0.7-1.3 Chemistry (test code=EGFRMDRD) Greater than 90 Reference Range for Estimated GFR: Greater than 90 mL/min/1.73 m2NOTE:The MDRD equation has not been validated for use with theelderly (over 70 years of age), women, patientswith serious comorbid condition or persons with extremes ofbody size, muscle mass, or nutritional status. Chemistry (test code=GLU-T) 217 mg/dL 70-105 Chemistry (test code=CA) 9.3 mg/dL 7.8-10.44 Gnyeoimji7436-71-47 06:05:00* Test Item Value Reference Range Comments Chemistry (test code=MG) 2.0 mg/dL 1.6-2.6 Ponurmbjhmz7294-44-97 05:54:00* Test Item Value Reference Range Comments Coagulation (test code=PT-T) 14.3 SEC 12.0-14.7 Coagulation (test code=INR) 1.1 ATTENTION: READ CAREFULLY The recommended therapeutic ranges for oral anticoagulanttreatments are: Low Intensity: 1.5 - 2.0 Moderate Intensity: 2.0 - 3.0 High Intensity (1): 2.5 - 3.5 High Intensity (2): 3.0 - 4.0 CRITICAL: > 4.0 Coagulation (test code=PTT) 31.6 SEC 22.9-36.1 Anticoagulant? BGNGJhutouzbtg6383-93-45 05:52:00* Test Item Value Reference Range Comments Hematology (test code=WBCT) 8.6 thou/uL 4.8-10.8 Hematology (test code=RBCT) 4.29 mill/uL 4.70-6.10 Hematology (test code=HGBT) 13.9 g/dL 14.0-18.0 Hematology (test code=HCTT) 40.4 % 42.0-52.0 Hematology (test code=MCV) 94.2 fL 78.0-98.0 Hematology (test code=MCH) 32.4 pg 27.0-31.0 Hematology (test code=MCHC) 34.4 g/dL 32.0-36.0 Hematology (test code=RDW) 12.3 % 11.5-14.5 Hematology (test code=PLTT) 354 thou/uL 130-400 Hematology (test code=MPV) 6.9 fL 7.4-10.4 Hematology (test code=%NEUT) 44.4 % 42.0-75.0 Hematology (test code=%LYMPH) 42.4 % 21.0-51.0 Hematology (test code=%MONO) 8.3 % 0.0-10.0 Hematology (test code=%EOS) 3.6 % 0.0-10.0 Hematology (test code=%BASO) 1.4 % 0.0-1.0 Hematology (test code=NEUT#) 3.8 thou/uL 1.40-6.50 Hematology (test code=LYMPH#) 3.6 thou/uL 1.20-3.40 Hematology (test code=MONO#) 0.7 thou/uL 0.11-0.59 Hematology (test code=EOS#) 0.3 thou/uL 0.0-0.7 Hematology (test code=BASO#) 0.1 thou/uL 0.0-0.2 Twstedan4903-08-45 03:19:00* Test Item Value Reference Range Comments Accuchek (test code=ACU) 177 mg/dL 70-110 Hcvryrjdpm0268-32-87 23:45:00* Test Item Value Reference Range Comments Toxicology (test code=JACQUELYN) Not Detected NotDetected Toxicology (test code=PCP) Not Detected NotDetected Toxicology (test code=COCN) Not Detected NotDetected Toxicology (test code=METHAMPU) Not Detected NotDetected Toxicology (test code=OPIA) Not Detected NotDetected Toxicology (test code=AMPHU) Not Detected NotDetected Toxicology (test code=ASHWINI) Detected NotDetected Toxicology (test code=TRICY) Not Detected NotDetected Toxicology (test code=MTD) Not Detected NotDetected Toxicology (test code=BLAZE) Not Detected NotDetected Toxicology (test code=OXYCOD) Not Detected NotDetected Toxicology (test code=PPX) Not Detected NotDetected Toxicology (test code=MTCUTOFF) The [employer] Profile- V Panel for Qualitative Drugs ofAbuse assays are for presumptive screening testing only.The drug class and detection limits are as follows:Drug Class Detection LimitAmphetamine 500 ng/mL*Barbiturates 200 ng/mLBenzodiazepines 150 ng/mL*Cocaine 150 ng/mL*Methamphetamine 500 ng/mL*Methadone 200 ng/mL*Opiates 100 ng/mL*Oxycodone 100 ng/mLPCP 25 ng/mLPropoxyphene 300 ng/mLTricyclic Antidepressants 300 ng/mLCannabinoids (THC) 50 ng/mLTests which yield a presumptive positive result must betested using a more specific alternate chemical method inorder to obtain a confirmed analytical result. Additionalconfirmation and identification may be ordered on a routinebasis, if desired. Presumptive positive urines are held fortwo weeks. Urine Source: Urine YuobcqCrxsuqeuqx8430-01-95 23:45:00* Test Item Value Reference Range Comments Urinalysis (test code=UACLR) YELLOW Yellow Urinalysis (test code=UACLY) CLEAR Clear Urinalysis (test code=SPGR) 1.004 1.002-1.036 Urinalysis (test code=PRICILA) 6.0 5.0-9.0 Urinalysis (test code=UALEU) Negative Negative Urinalysis (test code=UANIT) Negative Negative Urinalysis (test code=PROUADIP) Negative mg/dL Neg-Trace Urinalysis (test code=GLUCU) Negative mg/dL Negative Urinalysis (test code=KETU) Negative mg/dL Negative Urinalysis (test code=UAUROB) 0.2 mg/dL 0.2-1.0 Urinalysis (test code=UABIL) Negative Negative Urinalysis (test code=UABLD) Negative Negative Urine Source: Urine FrrlbcJesphvigj8578-97-66 20:50:00* Test Item Value Reference Range Comments Chemistry (test code=NA-T) 141 mmol/L 136-145 Chemistry (test code=K-T) 4.1 mmol/L 3.5-5.1 Chemistry (test code=CL) 103 mmol/L 98-107 Chemistry (test code=CO2) 29 mmol/L 22-29 Chemistry (test code=ANGP) 13 mmol/L 10-20 Chemistry (test code=BUN) 8 mg/dL 8.9-20.6 Chemistry (test code=CREATT) 0.90 mg/dL 0.7-1.3 Chemistry (test code=EGFRMDRD) Greater than 90 Reference Range for Estimated GFR: Greater than 90 mL/min/1.73 m2NOTE:The MDRD equation has not been validated for use with theelderly (over 70 years of age), women, patientswith serious comorbid condition or persons with extremes ofbody size, muscle mass, or nutritional status. Chemistry (test code=GLU-T) 165 mg/dL 70-105 Chemistry (test code=CA) 9.8 mg/dL 7.8-10.44 Chemistry (test code=TBILI) 0.8 mg/dL 0.2-1.2 Chemistry (test code=TP) 8.9 g/dL 6.0-8.3 Chemistry (test code=ALB) 4.8 g/dL 3.5-5.0 Chemistry (test code=GLOB) 4.1 g/dL 2.4-3.5 Chemistry (test code=AG) 1.2 g/dL 1.2-2.2 Chemistry (test code=ALP) 138 U/L 40-150 Chemistry (test code=AST) 36 U/L 5-34 Chemistry (test code=ALT) 47 U/L 8-55 [id number] 20:50:00* Test Item Value Reference Range Comments Chemistry (test code=CK) 139 U/L 30-200 Oozwadbbq5629-25-34 20:50:00* Test Item Value Reference Range Comments Chemistry (test code=LIP) 41 U/L 8-78 Oogxwpuik8783-85-29 20:50:00* Test Item Value Reference Range Comments Chemistry (test code=ACET-T) Less than 6.0 mcg/mL 10.0-30.0 Therapeutic Range: 10.0 - 30.0 ug/mLToxic Range: Possible toxicity: 150 - 200 ug/mL Probable toxicity: Greater than 200 ug/mL*IMPORTANT TESTING INFORMATION* The half-life of NAC is 2 hours. The total NAC clearanceis 5.6 hours for adults and 11 hours for Newborns. Testing acetaminophen levels prior to a reasonable timeframe for clearance can cause falsely decreasedacetaminophen levels. Chemistry (test code=ETOH) 321 mg/dL Less than 10 The pharmacological response to blood alcohol levels mayvary from individual to individual. Negative: Less than 10 mg/dL Toxic: 50 - 100 mg/dL Depression of LOG STACKER OPERATOR: Greater than 100 mg/dL Fatalities reported: Greater than 400 mg/dL Chemistry (test code=SALCY) Less than 8.0 mg/dL 15.0-30.0 Iaisjskmi8516-67-46 20:48:00* Test Item Value Reference Range Comments Chemistry (test code=VALP) Less than 12.5 ug/mL 50.0-100.0 Therapeutic Range: 50.0 - 100.0 ug/mL Date of next dose: unknownTime of next dose: pinatcgBdldlxrga6774-03-56 20:48:00 * Test Item Value Reference Range Comments Chemistry (test code=CRP) 0.99 mg/dL =or < 0.5 What test does the doctor want? C-REACTIVE PROTEIN (CRP)Nxaadoaytm5868-35-15 20:29:00* Test Item Value Reference Range Comments Hematology (test code=WBCT) 9.7 thou/uL 4.8-10.8 Hematology (test code=RBCT) 4.99 mill/uL 4.70-6.10 Hematology (test code=HGBT) 16.1 g/dL 14.0-18.0 Hematology (test code=HCTT) 46.8 % 42.0-52.0 Hematology (test code=MCV) 93.7 fL 78.0-98.0 Hematology (test code=MCH) 32.3 pg 27.0-31.0 Hematology (test code=MCHC) 34.5 g/dL 32.0-36.0 Hematology (test code=RDW) 12.3 % 11.5-14.5 Hematology (test code=PLTT) 387 thou/uL 130-400 Hematology (test code=MPV) 6.7 fL 7.4-10.4 Hematology (test code=%NEUT) 51.7 % 42.0-75.0 Hematology (test code=%LYMPH) 36.5 % 21.0-51.0 Hematology (test code=%MONO) 7.8 % 0.0-10.0 Hematology (test code=%EOS) 3.2 % 0.0-10.0 Hematology (test code=%BASO) 0.9 % 0.0-1.0 Hematology (test code=NEUT#) 5.0 thou/uL 1.40-6.50 Hematology (test code=LYMPH#) 3.5 thou/uL 1.20-3.40 Hematology (test code=MONO#) 0.8 thou/uL 0.11-0.59 Hematology (test code=EOS#) 0.3 thou/uL 0.0-0.7 Hematology (test code=BASO#) 0.1 thou/uL 0.0-0.2 [id number] 19:37:00* Test Item Value Reference Range Comments Accuchek (test code=ACU) 150 mg/dL 70-110 Culture, [id number] 09:45:00* Test Item Value Reference Range Comments Culture, Blood (test code=BC) NG5 Patient is unavailableCulture, Skimu7033-89-45 09:45:00* Test Item Value Reference Range Comments Culture, Blood (test code=BC) NG5 Patient is wmdxodslqpqAubmqitk0135-27-38 06:00:00* Test Item Value Reference Range Comments Accuchek (test code=ACU) 114 mg/dL 70-110 Lbcidlhd0343-91-09 20:48:00* Test Item Value Reference Range Comments Accuchek (test code=ACU) 111 mg/dL 70-110 Chcxhpgx4129-26-63 15:05:00* Test Item Value Reference Range Comments Accuchek (test code=ACU) 98 mg/dL 70-110 Gbngfdcd3609-96-13 11:30:00* Test Item Value Reference Range Comments Accuchek (test code=ACU) 171 mg/dL 70-110 Ogmkmbjb0781-84-65 05:56:00* Test Item Value Reference Range Comments Accuchek (test code=ACU) 149 mg/dL 70-110 Fmoovzte6616-21-02 21:03:00* Test Item Value Reference Range Comments Accuchek (test code=ACU) 165 mg/dL 70-110 Homxcvtz6002-02-33 15:58:00* Test Item Value Reference Range Comments Accuchek (test code=ACU) 158 mg/dL 70-110 Yzucucvcn1048-50-10 12:07:00* Test Item Value Reference Range Comments Chemistry (test code=CRP) 0.85 mg/dL =or < 0.5 What test does the doctor want? C-REACTIVE PROTEIN (CRP)Bmhjwoahtw3997-64-35 12:05:00* Test Item Value Reference Range Comments Hematology (test code=SED) 9 mm/hr Less than 15 [id number] 11:45:00* Test Item Value Reference Range Comments Accuchek (test code=ACU) 110 mg/dL 70-110 [id number] 02:10:00* Test Item Value Reference Range Comments Chemistry (test code=CRP) 0.87 mg/dL =or < 0.5 Patient is unavailableWhat test does the doctor want? C-REACTIVE PROTEIN (CRP) [id number] 01:52:00* Test Item Value Reference Range Comments Chemistry (test code=NA-T) 138 mmol/L 136-145 Chemistry (test code=K-T) 4.0 mmol/L 3.5-5.1 Chemistry (test code=CL) 104 mmol/L 98-107 Chemistry (test code=CO2) 24 mmol/L 22-29 Chemistry (test code=ANGP) 14 mmol/L 10-20 Chemistry (test code=BUN) 15 mg/dL 8.9-20.6 Chemistry (test code=CREATT) 1.15 mg/dL 0.6-1.3 Chemistry (test code=EGFRMDRD) 72 Reference Range for Estimated GFR: Greater than 90 mL/min/1.73 m2NOTE:The MDRD equation has not been validated for use with theelderly (over 70 years of age), women, patien tswith serious comorbid condition or persons with extremes ofbody size, muscle mass, or nutritional status. Chemistry (test code=GLU-T) 166 mg/dL 70-105 Chemistry (test code=CA) 10.1 mg/dL 7.8-10.44 Chemistry (test code=TBILI) 1.3 mg/dL 0.2-1.2 Chemistry (test code=TP) 7.6 g/dL 6.0-8.3 Chemistry (test code=ALB) 4.1 g/dL 3.5-5.0 Chemistry (test code=GLOB) 3.5 g/dL 2.4-3.5 Chemistry (test code=AG) 1.2 g/dL 1.2-2.2 Chemistry (test code=ALP) 112 U/L 40-150 Chemistry (test code=AST) 108 U/L 5-34 Chemistry (test code=ALT) 134 U/L 8-55 Chemistry - [id number] 01:46:00* Test Item Value Reference Range Comments Chemistry - Lactate (test code=LACTSEP-T) 1.1 mmol/L 0.5-2.2 [id number] 01:28:00* Test Item Value Reference Range Comments Hematology (test code=WBCT) 7.3 thou/uL 4.8-10.8 Hematology (test code=RBCT) 4.11 mill/uL 4.70-6.10 Hematology (test code=HGBT) 13.3 g/dL 14.0-18.0 Hematology (test code=HCTT) 38.9 % 42.0-52.0 Hematology (test code=MCV) 94.7 fL 78.0-98.0 Hematology (test code=MCH) 32.4 pg 27.0-31.0 Hematology (test code=MCHC) 34.2 g/dL 32.0-36.0 Hematology (test code=RDW) 12.2 % 11.5-14.5 Hematology (test code=PLTT) 248 thou/uL 130-400 Hematology (test code=MPV) 7.1 fL 7.4-10.4 Hematology (test code=%NEUT) 57.0 % 42.0-75.0 Hematology (test code=%LYMPH) 25.6 % 21.0-51.0 Hematology (test code=%MONO) 14.6 % 0.0-10.0 Hematology (test code=%EOS) 2.0 % 0.0-10.0 Hematology (test code=%BASO) 0.8 % 0.0-1.0 Hematology (test code=NEUT#) 4.2 thou/uL 1.40-6.50 Hematology (test code=LYMPH#) 1.9 thou/uL 1.20-3.40 Hematology (test code=MONO#) 1.1 thou/uL 0.11-0.59 Hematology (test code=EOS#) 0.1 thou/uL 0.0-0.7 Hematology (test code=BASO#) 0.1 thou/uL 0.0-0.2 [id number] 12:06:00* Test Item Value Reference Range Comments Accuchek (test code=ACU) 216 mg/dL 70-110 Clvqlzhi3010-03-23 09:30:00* Test Item Value Reference Range Comments Accuchek (test code=ACU) 157 mg/dL 70-110 Lifgepwvfc0626-86-14 05:14:00* Test Item Value Reference Range Comments Hematology (test code=WBCT) 7.2 thou/uL 4.8-10.8 Hematology (test code=RBCT) 4.15 mill/uL 4.70-6.10 Hematology (test code=HGBT) 13.6 g/dL 14.0-18.0 Hematology (test code=HCTT) 39.4 % 42.0-52.0 Hematology (test code=MCV) 94.9 fL 78.0-98.0 Hematology (test code=MCH) 32.8 pg 27.0-31.0 Hematology (test code=MCHC) 34.6 g/dL 32.0-36.0 Hematology (test code=RDW) 12.4 % 11.5-14.5 Hematology (test code=PLTT) 146 thou/uL 130-400 Hematology (test code=MPV) 7.1 fL 7.4-10.4 Hematology (test code=%NEUT) 65.8 % 42.0-75.0 Hematology (test code=%LYMPH) 21.2 % 21.0-51.0 Hematology (test code=%MONO) 10.2 % 0.0-10.0 Hematology (test code=%EOS) 2.0 % 0.0-10.0 Hematology (test code=%BASO) 0.8 % 0.0-1.0 Hematology (test code=NEUT#) 4.7 thou/uL 1.40-6.50 Hematology (test code=LYMPH#) 1.5 thou/uL 1.20-3.40 Hematology (test code=MONO#) 0.7 thou/uL 0.11-0.59 Hematology (test code=EOS#) 0.1 thou/uL 0.0-0.7 Hematology (test code=BASO#) 0.1 thou/uL 0.0-0.2 [id number] 20:09:00* Test Item Value Reference Range Comments Accuchek (test code=ACU) 284 mg/dL 70-110 [id number] 16:01:00* Test Item Value Reference Range Comments Accuchek (test code=ACU) 125 mg/dL 70-110 Hgpqzlrpv9985-26-78 03:13:00* Test Item Value Reference Range Comments Chemistry (test code=CKMBM-T) 3.0 ng/mL 0-6.6 Chemistry (test code=TROPI-T) Less than 0.010 ng/mL < 0.028 Reference Range 0.00 - 0.028 ng/mL Negative 0.029 - 0.29 ng/mL Indeterminate Greater or Equal to 0.3 ng/mL Strongly suggests PA [id number] 02:54:00* Test Item Value Reference Range Comments Chemistry (test code=NA-T) 136 mmol/L 136-145 Chemistry (test code=K-T) 3.9 mmol/L 3.5-5.1 Chemistry (test code=CL) 98 mmol/L 98-107 Chemistry (test code=CO2) 29 mmol/L 22-29 Chemistry (test code=ANGP) 13 mmol/L 10-20 Chemistry (test code=BUN) 10 mg/dL 8.9-20.6 Chemistry (test code=CREATT) 0.84 mg/dL 0.6-1.3 Chemistry (test code=EGFRMDRD) Greater than 90 Reference Range for Estimated GFR: Greater than 90 mL/min/1.73 m2NOTE:The MDRD equation has not been validated for use with theelderly (over 70 years of age), women, patientswith serious comorbid condition or persons with extremes ofbody size, muscle mass, or nutritional status. Chemistry (test code=GLU-T) 196 mg/dL 70-105 Chemistry (test code=CA) 10.3 mg/dL 7.8-10.44 Chemistry (test code=TBILI) 2.0 mg/dL 0.2-1.2 Chemistry (test code=TP) 8.3 g/dL 6.0-8.3 Chemistry (test code=ALB) 4.3 g/dL 3.5-5.0 Chemistry (test code=GLOB) 4.0 g/dL 2.4-3.5 Chemistry (test code=AG) 1.1 g/dL 1.2-2.2 Chemistry (test code=ALP) 107 U/L 40-150 Chemistry (test code=AST) 127 U/L 5-34 Chemistry (test code=ALT) 122 U/L 8-55 [id number] 02:43:00* Test Item Value Reference Range Comments Urinalysis (test code=UACLR) STEVEN Yellow Urinalysis (test code=UACLY) CLEAR Clear Urinalysis (test code=SPGR) 1.018 1.002-1.036 Urinalysis (test code=PRICILA) 7.0 5.0-9.0 Urinalysis (test code=UALEU) Trace Negative Urinalysis (test code=UANIT) Negative Negative Urinalysis (test code=PROUADIP) 300 mg/dL Neg-Trace Urinalysis (test code=GLUCU) Negative mg/dL Negative Urinalysis (test code=KETU) Negative mg/dL Negative Urinalysis (test code=UAUROB) 2.0 mg/dL 0.2-1.0 Urinalysis (test code=UABIL) Small Negative CAUTIONUrine Bilirubin has a high incidence of false positiveresults due to urine color interferance.Interpret results in conjunction with other clinicalfindings. Urinalysis (test code=UABLD) Negative Negative Urinalysis (test code=UARBC) 0-3 HPF 0-3 Urinalysis (test code=UAWBC) 0-3 HPF 0-3 Urinalysis (test code=UASQUAM) None Seen HPF 0-3 Urinalysis (test code=UABAC) None Seen HPF None Seen Urinalysis (test code=UACAST) NONE SEEN LPF 0-3 Hyaline Urine Source: Urine [id number] 02:32:00* Test Item Value Reference Range Comments Hematology (test code=WBCT) 6.8 thou/uL 4.8-10.8 Hematology (test code=RBCT) 4.65 mill/uL 4.70-6.10 Hematology (test code=HGBT) 15.2 g/dL 14.0-18.0 Hematology (test code=HCTT) 43.8 % 42.0-52.0 Hematology (test code=MCV) 94.3 fL 78.0-98.0 Hematology (test code=MCH) 32.6 pg 27.0-31.0 Hematology (test code=MCHC) 34.6 g/dL 32.0-36.0 Hematology (test code=RDW) 12.3 % 11.5-14.5 Hematology (test code=PLTT) 162 thou/uL 130-400 Hematology (test code=MPV) 7.3 fL 7.4-10.4 Hematology (test code=%NEUT) 64.9 % 42.0-75.0 Hematology (test code=%LYMPH) 22.7 % 21.0-51.0 Hematology (test code=%MONO) 9.5 % 0.0-10.0 Hematology (test code=%EOS) 2.2 % 0.0-10.0 Hematology (test code=%BASO) 0.8 % 0.0-1.0 Hematology (test code=NEUT#) 4.4 thou/uL 1.40-6.50 Hematology (test code=LYMPH#) 1.5 thou/uL 1.20-3.40 Hematology (test code=MONO#) 0.7 thou/uL 0.11-0.59 Hematology (test code=EOS#) 0.1 thou/uL 0.0-0.7 Hematology (test code=BASO#) 0.1 thou/uL 0.0-0.2 [id number] 18:15:00* Test Item Value Reference Range Comments Chemistry (test code=NA-T) 134 mmol/L 136-145 Chemistry (test code=K-T) 3.7 mmol/L 3.5-5.1 Chemistry (test code=CL) 103 mmol/L 98-107 Chemistry (test code=CO2) 17 mmol/L 22-29 Chemistry (test code=ANGP) 18 mmol/L 10-20 Chemistry (test code=BUN) 7 mg/dL 8.9-20.6 Chemistry (test code=CREATT) 0.83 mg/dL 0.6-1.3 Chemistry (test code=EGFRMDRD) Greater than 90 Reference Range for Estimated GFR: Greater than 90 mL/min/1.73 m2NOTE:The MDRD equation has not been validated for use with theelderly (over 70 years of age), women, patientswith serious comorbid condition or persons with extremes ofbody size, muscle mass, or nutritional status. Chemistry (test code=GLU-T) 329 mg/dL 70-105 Chemistry (test code=CA) 8.3 mg/dL 7.8-10.44 Chemistry (test code=TBILI) 1.0 mg/dL 0.2-1.2 Chemistry (test code=TP) 7.3 g/dL 6.0-8.3 Chemistry (test code=ALB) 3.9 g/dL 3.5-5.0 Chemistry (test code=GLOB) 3.4 g/dL 2.4-3.5 Chemistry (test code=AG) 1.1 g/dL 1.2-2.2 Chemistry (test code=ALP) 133 U/L 40-150 Chemistry (test code=AST) 63 U/L 5-34 Chemistry (test code=ALT) 70 U/L 8-55 [id number] 18:15:00* Test Item Value Reference Range Comments Chemistry (test code=CK) 425 U/L 30-200 [id number] 18:15:00* Test Item Value Reference Range Comments Chemistry (test code=MG) 2.0 mg/dL 1.6-2.6 [id number] 18:06:00* Test Item Value Reference Range Comments Chemistry (test code=ACET-T) Less than 6.0 mcg/mL 10.0-30.0 Therapeutic Range: 10.0 - 30.0 ug/mLToxic Range: Possible toxicity: 150 - 200 ug/mL Probable toxicity: Greater than 200 ug/mL*IMPORTANT TESTING INFORMATION* The half-life of NAC is 2 hours. The total NAC clearanceis 5.6 hours for adults and 11 hours for Newborns. Testing acetaminophen levels prior to a reasonable timeframe for clearance can cause falsely decreasedacetaminophen levels. Chemistry (test code=ETOH) 311 mg/dL Less than 10 The pharmacological response to blood alcohol levels mayvary from individual to individual. Negative: Less than 10 mg/dL Toxic: 50 - 100 mg/dL Depression of LOG STACKER OPERATOR: Greater than 100 mg/dL Fatalities reported: Greater than 400 mg/dL Chemistry (test code=SALCY) Less than 8.0 mg/dL 15.0-30.0 [id number] 17:45:00* Test Item Value Reference Range Comments Hematology (test code=WBCT) 9.8 thou/uL 4.8-10.8 Hematology (test code=RBCT) 4.31 mill/uL 4.70-6.10 Hematology (test code=HGBT) 14.1 g/dL 14.0-18.0 Hematology (test code=HCTT) 40.3 % 42.0-52.0 Hematology (test code=MCV) 93.6 fL 78.0-98.0 Hematology (test code=MCH) 32.6 pg 27.0-31.0 Hematology (test code=MCHC) 34.8 g/dL 32.0-36.0 Hematology (test code=RDW) 12.3 % 11.5-14.5 Hematology (test code=PLTT) 153 thou/uL 130-400 Hematology (test code=MPV) 7.0 fL 7.4-10.4 Hematology (test code=%NEUT) 68.1 % 42.0-75.0 Hematology (test code=%LYMPH) 20.4 % 21.0-51.0 Hematology (test code=%MONO) 10.0 % 0.0-10.0 Hematology (test code=%EOS) 1.0 % 0.0-10.0 Hematology (test code=%BASO) 0.5 % 0.0-1.0 Hematology (test code=NEUT#) 6.7 thou/uL 1.40-6.50 Hematology (test code=LYMPH#) 2.0 thou/uL 1.20-3.40 Hematology (test code=MONO#) 1.0 thou/uL 0.11-0.59 Hematology (test code=EOS#) 0.1 thou/uL 0.0-0.7 Hematology (test code=BASO#) 0.1 thou/uL 0.0-0.2 [id number] 02:47:00* Test Item Value Reference Range Comments Toxicology (test code=JACQUELYN) Not Detected NotDetected Toxicology (test code=PCP) Not Detected NotDetected Toxicology (test code=COCN) Not Detected NotDetected Toxicology (test code=METHAMPU) Not Detected NotDetected Toxicology (test code=OPIA) Not Detected NotDetected Toxicology (test code=AMPHU) Not Detected NotDetected Toxicology (test code=ASHWINI) Not Detected NotDetected Toxicology (test code=TRICY) Not Detected NotDetected Toxicology (test code=MTD) Not Detected NotDetected Toxicology (test code=BLAZE) Not Detected NotDetected Toxicology (test code=OXYCOD) Not Detected NotDetected Toxicology (test code=PPX) Not Detected NotDetected Toxicology (test code=MTCUTOFF) The [employer] Profile- V Panel for Qualitative Drugs ofAbuse assays are for presumptive screening testing only.The drug class and detection limits are as follows:Drug Class Detection LimitAmphetamine 500 ng/mL*Barbiturates 200 ng/mLBenzodiazepines 150 ng/mL*Cocaine 150 ng/mL*Methamphetamine 500 ng/mL*Methadone 200 ng/mL*Opiates 100 ng/mL*Oxycodone 100 ng/mLPCP 25 ng/mLPropoxyphene 300 ng/mLTricyclic Antidepressants 300 ng/mLCannabinoids (THC) 50 ng/mLTests which yield a presumptive positive result must betested using a more specific alternate chemical method inorder to obtain a confirmed analytical result. Additionalconfirmation and identification may be ordered on a routinebasis, if desired. Presumptive positive urines are held fortwo weeks. Urine Source: Urine [id number] 02:45:00* Test Item Value Reference Range Comments Chemistry (test code=NA-T) 134 mmol/L 136-145 Chemistry (test code=K-T) 4.5 mmol/L 3.5-5.1 Chemistry (test code=CL) 95 mmol/L 98-107 Chemistry (test code=CO2) 25 mmol/L 22-29 Chemistry (test code=ANGP) 19 mmol/L 10-20 Chemistry (test code=BUN) 7 mg/dL 8.9-20.6 Chemistry (test code=CREATT) 1.02 mg/dL 0.6-1.3 Chemistry (test code=EGFRMDRD) 82 Reference Range for Estimated GFR: Greater than 90 mL/min/1.73 m2NOTE:The MDRD equation has not been validated for use with theelderly (over 70 years of age), women, patien tswith serious comorbid condition or persons with extremes ofbody size, muscle mass, or nutritional status. Chemistry (test code=GLU-T) 456 mg/dL 70-105 Chemistry (test code=CA) 9.8 mg/dL 7.8-10.44 Chemistry (test code=TBILI) 1.2 mg/dL 0.2-1.2 Chemistry (test code=TP) 8.3 g/dL 6.0-8.3 Chemistry (test code=ALB) 4.4 g/dL 3.5-5.0 Chemistry (test code=GLOB) 3.9 g/dL 2.4-3.5 Chemistry (test code=AG) 1.1 g/dL 1.2-2.2 Chemistry (test code=ALP) 178 U/L 40-150 Chemistry (test code=AST) 66 U/L 5-34 Chemistry (test code=ALT) 86 U/L 8-55 [id number] 02:45:00* Test Item Value Reference Range Comments Chemistry (test code=MG) 2.2 mg/dL 1.6-2.6 [id number] 02:45:00* Test Item Value Reference Range Comments Chemistry (test code=ETOH) 207 mg/dL Less than 10 The pharmacological response to blood alcohol levels mayvary from individual to individual. Negative: Less than 10 mg/dL Toxic: 50 - 100 mg/dL Depression of LOG STACKER OPERATOR: Greater than 100 mg/dL Fatalities reported: Greater than 400 mg/dL [id number] 02:23:00* Test Item Value Reference Range Comments Hematology (test code=WBCT) 8.7 thou/uL 4.8-10.8 Hematology (test code=RBCT) 4.71 mill/uL 4.70-6.10 Hematology (test code=HGBT) 14.9 g/dL 14.0-18.0 Hematology (test code=HCTT) 44.2 % 42.0-52.0 Hematology (test code=MCV) 93.8 fL 78.0-98.0 Hematology (test code=MCH) 31.6 pg 27.0-31.0 Hematology (test code=MCHC) 33.7 g/dL 32.0-36.0 Hematology (test code=RDW) 12.2 % 11.5-14.5 Hematology (test code=PLTT) 166 thou/uL 130-400 Hematology (test code=MPV) 7.3 fL 7.4-10.4 Hematology (test code=%NEUT) 69.1 % 42.0-75.0 Hematology (test code=%LYMPH) 18.3 % 21.0-51.0 Hematology (test code=%MONO) 10.4 % 0.0-10.0 Hematology (test code=%EOS) 1.6 % 0.0-10.0 Hematology (test code=%BASO) 0.7 % 0.0-1.0 Hematology (test code=NEUT#) 6.0 thou/uL 1.40-6.50 Hematology (test code=LYMPH#) 1.6 thou/uL 1.20-3.40 Hematology (test code=MONO#) 0.9 thou/uL 0.11-0.59 Hematology (test code=EOS#) 0.1 thou/uL 0.0-0.7 Hematology (test code=BASO#) 0.1 thou/uL 0.0-0.2 [id number] 12:00:00* Test Item Value Reference Range Comments Toxicology (test code=JACQUELYN) Not Detected NotDetected Toxicology (test code=PCP) Not Detected NotDetected Toxicology (test code=COCN) Not Detected NotDetected Toxicology (test code=METHAMPU) Not Detected NotDetected Toxicology (test code=OPIA) Not Detected NotDetected Toxicology (test code=AMPHU) Not Detected NotDetected Toxicology (test code=ASHWINI) Detected NotDetected Toxicology (test code=TRICY) Not Detected NotDetected Toxicology (test code=MTD) Not Detected NotDetected Toxicology (test code=BLAZE) Not Detected NotDetected Toxicology (test code=OXYCOD) Not Detected NotDetected Toxicology (test code=PPX) Not Detected NotDetected Toxicology (test code=MTCUTOFF) The [employer] Profile- V Panel for Qualitative Drugs ofAbuse assays are for presumptive screening testing only.The drug class and detection limits are as follows:Drug Class Detection LimitAmphetamine 500 ng/mL*Barbiturates 200 ng/mLBenzodiazepines 150 ng/mL*Cocaine 150 ng/mL*Methamphetamine 500 ng/mL*Methadone 200 ng/mL*Opiates 100 ng/mL*Oxycodone 100 ng/mLPCP 25 ng/mLPropoxyphene 300 ng/mLTricyclic Antidepressants 300 ng/mLCannabinoids (THC) 50 ng/mLTests which yield a presumptive positive result must betested using a more specific alternate chemical method inorder to obtain a confirmed analytical result. Additionalconfirmation and identification may be ordered on a routinebasis, if desired. Presumptive positive urines are held fortwo weeks. Urine Source: Urine [id number] 08:56:00* Test Item Value Reference Range Comments Chemistry (test code=NA-T) 135 mmol/L 136-145 Chemistry (test code=K-T) 3.8 mmol/L 3.5-5.1 Chemistry (test code=CL) 97 mmol/L 98-107 Chemistry (test code=CO2) 23 mmol/L 22-29 Chemistry (test code=ANGP) 19 mmol/L 10-20 Chemistry (test code=BUN) 10 mg/dL 8.9-20.6 Chemistry (test code=CREATT) 0.91 mg/dL 0.6-1.3 Chemistry (test code=EGFRMDRD) Greater than 90 Reference Range for Estimated GFR: Greater than 90 mL/min/1.73 m2NOTE:The MDRD equation has not been validated for use with theelderly (over 70 years of age), women, patientswith serious comorbid condition or persons with extremes ofbody size, muscle mass, or nutritional status. Chemistry (test code=GLU-T) 342 mg/dL 70-105 Chemistry (test code=CA) 9.0 mg/dL 7.8-10.44 Chemistry (test code=TBILI) 1.0 mg/dL 0.2-1.2 Chemistry (test code=TP) 7.9 g/dL 6.0-8.3 Chemistry (test code=ALB) 4.1 g/dL 3.5-5.0 Chemistry (test code=GLOB) 3.8 g/dL 2.4-3.5 Chemistry (test code=AG) 1.1 g/dL 1.2-2.2 Chemistry (test code=ALP) 150 U/L 40-150 Chemistry (test code=AST) 89 U/L 5-34 Chemistry (test code=ALT) 94 U/L 8-55 [id number] 08:56:00* Test Item Value Reference Range Comments Chemistry (test code=ACET-T) Less than 6.0 mcg/mL 10.0-30.0 Therapeutic Range: 10.0 - 30.0 ug/mLToxic Range: Possible toxicity: 150 - 200 ug/mL Probable toxicity: Greater than 200 ug/mL*IMPORTANT TESTING INFORMATION* The half-life of NAC is 2 hours. The total NAC clearanceis 5.6 hours for adults and 11 hours for Newborns. Testing acetaminophen levels prior to a reasonable timeframe for clearance can cause falsely decreasedacetaminophen levels. Chemistry (test code=ETOH) 117 mg/dL Less than 10 The pharmacological response to blood alcohol levels mayvary from individual to individual. Negative: Less than 10 mg/dL Toxic: 50 - 100 mg/dL Depression of LOG STACKER OPERATOR: Greater than 100 mg/dL Fatalities reported: Greater than 400 mg/dL Chemistry (test code=SALCY) Less than 8.0 mg/dL 15.0-30.0 Zkegclipxi2041-18-31 08:36:00* Test Item Value Reference Range Comments Hematology (test code=WBCT) 7.4 thou/uL 4.8-10.8 Hematology (test code=RBCT) 4.44 mill/uL 4.70-6.10 Hematology (test code=HGBT) 14.0 g/dL 14.0-18.0 Hematology (test code=HCTT) 41.5 % 42.0-52.0 Hematology (test code=MCV) 93.4 fL 78.0-98.0 Hematology (test code=MCH) 31.6 pg 27.0-31.0 Hematology (test code=MCHC) 33.8 g/dL 32.0-36.0 Hematology (test code=RDW) 12.5 % 11.5-14.5 Hematology (test code=PLTT) 183 thou/uL 130-400 Hematology (test code=MPV) 7.4 fL 7.4-10.4 Hematology (test code=%NEUT) 53.1 % 42.0-75.0 Hematology (test code=%LYMPH) 32.0 % 21.0-51.0 Hematology (test code=%MONO) 12.0 % 0.0-10.0 Hematology (test code=%EOS) 1.7 % 0.0-10.0 Hematology (test code=%BASO) 1.2 % 0.0-1.0 Hematology (test code=NEUT#) 3.9 thou/uL 1.40-6.50 Hematology (test code=LYMPH#) 2.4 thou/uL 1.20-3.40 Hematology (test code=MONO#) 0.9 thou/uL 0.11-0.59 Hematology (test code=EOS#) 0.1 thou/uL 0.0-0.7 Hematology (test code=BASO#) 0.1 thou/uL 0.0-0.2 [id number] 11:09:00* Test Item Value Reference Range Comments Chemistry (test code=ETOH) 18 mg/dL Less than 10 The pharmacological response to blood alcohol levels mayvary from individual to individual. Negative: Less than 10 mg/dL Toxic: 50 - 100 mg/dL Depression of LOG STACKER OPERATOR: Greater than 100 mg/dL Fatalities reported: Greater than 400 mg/dL Qzkrlhegr5190-18-30 08:10:00* Test Item Value Reference Range Comments Chemistry (test code=ETOH) 114 mg/dL Less than 10 The pharmacological response to blood alcohol levels mayvary from individual to individual. Negative: Less than 10 mg/dL Toxic: 50 - 100 mg/dL Depression of LOG STACKER OPERATOR: Greater than 100 mg/dL Fatalities reported: Greater than 400 mg/dL [id number] 06:41:00* Test Item Value Reference Range Comments Chemistry (test code=TROPI-T) Less than 0.010 ng/mL < 0.028 Reference Range 0.00 - 0.028 ng/mL Negative 0.029 - 0.29 ng/mL Indeterminate Greater or Equal to 0.3 ng/mL Strongly suggests PA Tktxumkulw5760-04-58 02:29:00* Test Item Value Reference Range Comments Toxicology (test code=JACQUELYN) Not Detected NotDetected Toxicology (test code=PCP) Not Detected NotDetected Toxicology (test code=COCN) Not Detected NotDetected Toxicology (test code=METHAMPU) Not Detected NotDetected Toxicology (test code=OPIA) Not Detected NotDetected Toxicology (test code=AMPHU) Not Detected NotDetected Toxicology (test code=ASHWINI) Not Detected NotDetected Toxicology (test code=TRICY) Not Detected NotDetected Toxicology (test code=MTD) Not Detected NotDetected Toxicology (test code=BLAZE) Not Detected NotDetected Toxicology (test code=OXYCOD) Not Detected NotDetected Toxicology (test code=PPX) Not Detected NotDetected Toxicology (test code=MTCUTOFF) The [employer] Profile- V Panel for Qualitative Drugs ofAbuse assays are for presumptive screening testing only.The drug class and detection limits are as follows:Drug Class Detection LimitAmphetamine 500 ng/mL*Barbiturates 200 ng/mLBenzodiazepines 150 ng/mL*Cocaine 150 ng/mL*Methamphetamine 500 ng/mL*Methadone 200 ng/mL*Opiates 100 ng/mL*Oxycodone 100 ng/mLPCP 25 ng/mLPropoxyphene 300 ng/mLTricyclic Antidepressants 300 ng/mLCannabinoids (THC) 50 ng/mLTests which yield a presumptive positive result must betested using a more specific alternate chemical method inorder to obtain a confirmed analytical result. Additionalconfirmation and identification may be ordered on a routinebasis, if desired. Presumptive positive urines are held fortwo weeks. Urine Source: Urine [id number] 02:16:00* Test Item Value Reference Range Comments Chemistry (test code=ACET-T) Less than 6.0 mcg/mL 10.0-30.0 Therapeutic Range: 10.0 - 30.0 ug/mLToxic Range: Possible toxicity: 150 - 200 ug/mL Probable toxicity: Greater than 200 ug/mL*IMPORTANT TESTING INFORMATION* The half-life of NAC is 2 hours. The total NAC clearanceis 5.6 hours for adults and 11 hours for Newborns. Testing acetaminophen levels prior to a reasonable timeframe for clearance can cause falsely decreasedacetaminophen levels. Chemistry (test code=ETOH) 315 mg/dL Less than 10 The pharmacological response to blood alcohol levels mayvary from individual to individual. Negative: Less than 10 mg/dL Toxic: 50 - 100 mg/dL Depression of LOG STACKER OPERATOR: Greater than 100 mg/dL Fatalities reported: Greater than 400 mg/dL Chemistry (test code=SALCY) Less than 8.0 mg/dL 15.0-30.0 [id number] 02:13:00* Test Item Value Reference Range Comments Chemistry (test code=CKMBM-T) 5.2 ng/mL 0-6.6 Chemistry (test code=TROPI-T) Less than 0.010 ng/mL < 0.028 Reference Range 0.00 - 0.028 ng/mL Negative 0.029 - 0.29 ng/mL Indeterminate Greater or Equal to 0.3 ng/mL Strongly suggests PA [id number] 02:09:00* Test Item Value Reference Range Comments Chemistry (test code=NA-T) 141 mmol/L 136-145 Chemistry (test code=K-T) 3.9 mmol/L 3.5-5.1 Chemistry (test code=CL) 102 mmol/L 98-107 Chemistry (test code=CO2) 26 mmol/L 22-29 Chemistry (test code=ANGP) 17 mmol/L 10-20 Chemistry (test code=BUN) 8 mg/dL 8.9-20.6 Chemistry (test code=CREATT) 0.94 mg/dL 0.6-1.3 Chemistry (test code=EGFRMDRD) 90 Reference Range for Estimated GFR: Greater than 90 mL/min/1.73 m2NOTE:The MDRD equation has not been validated for use with theelderly (over 70 years of age), women, patien tswith serious comorbid condition or persons with extremes ofbody size, muscle mass, or nutritional status. Chemistry (test code=GLU-T) 428 mg/dL 70-105 Chemistry (test code=CA) 8.8 mg/dL 7.8-10.44 Chemistry (test code=TBILI) 0.8 mg/dL 0.2-1.2 Chemistry (test code=TP) 7.6 g/dL 6.0-8.3 Chemistry (test code=ALB) 4.1 g/dL 3.5-5.0 Chemistry (test code=GLOB) 3.5 g/dL 2.4-3.5 Chemistry (test code=AG) 1.2 g/dL 1.2-2.2 Chemistry (test code=ALP) 151 U/L 40-150 Chemistry (test code=AST) 80 U/L 5-34 Chemistry (test code=ALT) 125 U/L 8-55 Krfgvqesoc2424-31-22 01:50:00* Test Item Value Reference Range Comments Hematology (test code=WBCT) 7.4 thou/uL 4.8-10.8 Hematology (test code=RBCT) 4.52 mill/uL 4.70-6.10 Hematology (test code=HGBT) 14.3 g/dL 14.0-18.0 Hematology (test code=HCTT) 43.4 % 42.0-52.0 Hematology (test code=MCV) 96.0 fL 78.0-98.0 Hematology (test code=MCH) 31.6 pg 27.0-31.0 Hematology (test code=MCHC) 32.9 g/dL 32.0-36.0 Hematology (test code=RDW) 12.6 % 11.5-14.5 Hematology (test code=PLTT) 200 thou/uL 130-400 Hematology (test code=MPV) 6.8 fL 7.4-10.4 Hematology (test code=%NEUT) 54.3 % 42.0-75.0 Hematology (test code=%LYMPH) 32.2 % 21.0-51.0 Hematology (test code=%MONO) 9.6 % 0.0-10.0 Hematology (test code=%EOS) 2.4 % 0.0-10.0 Hematology (test code=%BASO) 1.5 % 0.0-1.0 Hematology (test code=NEUT#) 4.0 thou/uL 1.40-6.50 Hematology (test code=LYMPH#) 2.4 thou/uL 1.20-3.40 Hematology (test code=MONO#) 0.7 thou/uL 0.11-0.59 Hematology (test code=EOS#) 0.2 thou/uL 0.0-0.7 Hematology (test code=BASO#) 0.1 thou/uL 0.0-0.2 CHEST SINGLE (PORTABLE) [facility] [address] [id number] Patient Name: LESVIA RUSSO MR #: [id number] : 1980 Age/Sex: 36/M Req #: [id number] Adm Physician: Ordered by: MARIELLA BRAUN [place] ENGINEER Report #: [id number] Location: ER Room/Bed: Procedure: [id number] DX/CHEST SINGLE (PORTABLE) Exam Date: 04/30/17 Exam Time: 1813 REPORT STA TUS: Signed PROCEDURE: A single AP view of the chest. COMPARISON: [facility], DX, CHEST 2 VIEWS, 06/08/2016, 13:47. INDICATIONS: pain all over FINDINGS: Lines/tubes: None. Lungs: The kayley gs are well inflated and clear. There is no evidence of pneumonia or pulmonar y edema. Pleura: There is no pleural effusion or pneumothorax. Hear t and mediastinum: The heart and the mediastinum are unremarkable. Bones: No acute bony abnormality. IMPRESSION: 1. No acute cardiopulmona ry abnormalities Lauri So M.D. Dictated by: Lauri So M.D. on 04/30/2017 at 18:32 Electronically approved by: Lauri So M.D. on 04/30/2017 at 18:32 Dictated By: LAURI KUHN MD [id number] Transcribe d By: ROOSEVELT on 04/30/171831 COPY TO: MARIELLA [employer] ENGINEER
--- NOTE | 2018-09-28 19:10 | NUR ---
pt arrived by ems. pt cursing at ems staff and er staff. pt making vulgar statement regarding sexuality of staff and ems. pt noting apologizing to ems stating "sorry you are bain and light on your feet." pt stating that he is ready to fight stating "i'm ready, come at me bro." attempted to calm patient down and reassure patient that staff is here to help, pt states that "you can suck my oscar." er md to room to assess patient. charge nurse aware.
== END 2018-09-28 19:22 | disposition left against medical advice (07) ==
LOC: ER 18:55
DX: F10.129 Alcohol abuse with intoxication, unspecified (principal); F17.210 Nicotine dependence, cigarettes, uncomplicated

== ENCOUNTER 2018-12-20 04:30 | Emergency (ER) | payer SELFPAY ==
[~2018-12-20] VITALS: Ht 170.2 cm; Wt 104.3 kg
--- OUTSIDE RECORDS SUMMARY | 2018-12-20 04:33 | XMS REPORT | Encounter Summary ---
Author Author FOUZIA Best Ifeoma E Organization [facility] Address Unknown Phone Unavailable Care Team Providers Care Cricket Coach Name Role Phone FOUZIA Best Ifeoma E Unavailable Conditions or Problems No information available. Medications Medication Instructions Start Date Stop Date Generic Name [facility] Provider LEVETIRACETAM 500 MG TABS Take 1 tablet by mouth twice daily x 30 days. nkop LEVETIRACETAM [id number] Adali Best NP THIAMINE HCL 100 MG/ML SOLN If not able to tolerate tabs, Give 100 mg IM daily x 3 days NON-KOP THIAMINE HCL 63305007437 Adali Bryant Best NP METFORMIN HCL 500 MG TABS Take 1 tablet by mouth twice daily x 365 days. nKOP METFORMIN HCL 68720355007 Adali Bryant Best NP BACTRIM DS 800-160 MG TABS Take 1 tablet by mouth twice daily x 10 days. n KOP SULFAMETHOXAZOLE-TRIMETHOPRIM 35640622008 Adali Best NP PROAIR HFA AERS take 2 puffs by mouth BID/PRN asthma for 60 days nkop ALBUTEROL SULFATE AERS 68167610307 Adali Bryant Best NP LEVOTHYROXINE SODIUM 100 MCG TABS Take 1 tablet by mouth every morning x 90 days. n KOP LEVOTHYROXINE SODIUM 43411405582 Adali Bryant Best NP ADVAIR DISKUS 250-50 MCG/DOSE AEPB 1 puff inhaled twice daily x 30 days NKOP FLUTICASONE-SALMETEROL 32080712050 Adali RamiresFOUZIA marlow DEPAKOTE ER 500 MG [id number] one tablet by mouth one times QPM 365 days NKOP DIVALPROEX SODIUM 19325227600 Adali BestFOUZIA SINGULAIR 10 MG TABS Take 1 tablet by mouth in the evening x 30 days. NKOP MONTELUKAST SODIUM 85511073762 Adali RamiresgmsusanFOUZIA TRICOR 145 MG TABS Take 1 tablet by mouth every evening x 365 days. NKOP FENOFIBRATE 05517611697 Adali RamiresmgsusanFOUZIA BSOYHIRE-LTC-7 0.2 MG/24HR PTWK Start with 6th dose of Clonidine X 1 patch nkop CLONIDINE HCL 09388970236 Adali RamachandranFOUZIA marin CLONIDINE HCL 0.2 MG TABS One tablet by mouth three times daily X 9 doses nkop CLONIDINE HCL 49547637918 Adali RamiresFOUZIA marlow IMODIUM A-D 2 MG TABS PRN Diarrhea Take 2 tablets by mouth every 8 hours X 96 hours nkop LOPERAMIDE HCL 65348123763 Adali QuirosFOUZIA gibson PROMETHAZINE HCL 25 MG TABS PRN nausea vomiting PO.take 1 tablet every 6 hrs nkop PROMETHAZINE HCL 65039354577 Adali E FOUZIA Best PROMETHAZINE HCL 25 MG SUPP PRN nausea vomiting per rectum.take 1 suppository every 6 hrs OR nkop PROMETHAZINE HCL 87693933749 Adali E FOUZIA Best PROMETHAZINE HCL 25 MG/ML SOLN PRN nausea/vomiting Give 1 ml IM every 6 hours x 96 hours NON-KOP PROMETHAZINE HCL 44599426830 Adali E FOUZIA Best PROMETHAZINE HCL 25 MG SUPP PRN nausea vomiting per rectum.take 1 suppository every 6 hrs OR nkop PROMETHAZINE HCL 32653187409 Adali E FOUZIA Best ATIVAN 1 MG TABS PRN Take 2 tablets po q 1 hr for agitation ,tremors,tachycardia(pulserate>=120) or diastolic bp>100mmHg nkop LORAZEPAM 91946133253 Adali E FOUZIA Best ATIVAN 2 MG/ML SOLN PRN 2 mg IM Q1 hours agitation, tremors, tachycardia (pulse rate greater than or equal to 120), or Diastolic blood pressure greater than 100mmHg X 4 days (96 hours) OR LORAZEPAM 46376352097 Adali E FOUZIA Best CHLORDIAZEPOXIDE HCL 25 MG CAPS Take 2 caps by mouth QID X 8 doses THEN 2 caps by mouth TID X 6 doses THEN 2 caps by mouth BID X 4 doses THEN 2 caps by mouth QD X 2 doses. NON-KOP CHLORDIAZEPOXIDE HCL 23061102004 Adali E FOUZIA Best THIAMINE HCL 100 MG TABS Take 1 tablet by mouth daily x 3 days NON-KOP THIAMINE HCL 55873226595 Adali E FOUZIA Best LISINOPRIL 10 MG TABS Take one tablet by mouth daily x 365 days nkop LISINOPRIL 65697901660 Adali E FOUZIA Best Medications Administered No information available. Allergies, Adverse Reactions, Alerts No information available.
--- OUTSIDE RECORDS SUMMARY | 2018-12-20 04:33 | XMS REPORT | Encounter Summary ---
Author Author FOUZIA Best Ifeoma E Organization [facility] Address Unknown Phone Unavailable Care Team Providers Care Osteopathy Doctor Name Role Phone FOUZIA Best Ifeoma E Unavailable Conditions or Problems No information available. Medications Medication Instructions Start Date Stop Date Generic Name [facility] Provider LEVETIRACETAM 500 MG TABS Take 1 tablet by mouth twice daily x 30 days. nkop LEVETIRACETAM [id number] Adali Best NP THIAMINE HCL 100 MG/ML SOLN If not able to tolerate tabs, Give 100 mg IM daily x 3 days NON-KOP THIAMINE HCL 23559525037 Adali Bryant Best NP METFORMIN HCL 500 MG TABS Take 1 tablet by mouth twice daily x 365 days. nKOP METFORMIN HCL 69209467560 Adali Bryant Best NP BACTRIM DS 800-160 MG TABS Take 1 tablet by mouth twice daily x 10 days. n KOP SULFAMETHOXAZOLE-TRIMETHOPRIM 67915390463 Adali Best NP PROAIR HFA AERS take 2 puffs by mouth BID/PRN asthma for 60 days nkop ALBUTEROL SULFATE AERS 21600348848 Adali Bryant Best NP LEVOTHYROXINE SODIUM 100 MCG TABS Take 1 tablet by mouth every morning x 90 days. n KOP LEVOTHYROXINE SODIUM 71141403240 Adali Bryant Best NP ADVAIR DISKUS 250-50 MCG/DOSE AEPB 1 puff inhaled twice daily x 30 days NKOP FLUTICASONE-SALMETEROL 42650665605 Adali RamiresFOUZIA marlow DEPAKOTE ER 500 MG [id number] one tablet by mouth one times QPM 365 days NKOP DIVALPROEX SODIUM 82625492620 Adali BestFOUZIA SINGULAIR 10 MG TABS Take 1 tablet by mouth in the evening x 30 days. NKOP MONTELUKAST SODIUM 90709295797 Adali RamiresgmsusanFOUZIA TRICOR 145 MG TABS Take 1 tablet by mouth every evening x 365 days. NKOP FENOFIBRATE 40579780588 Adali RamiresgmsusanFOUZIA YIOTQVLL-LDO-1 0.2 MG/24HR PTWK Start with 6th dose of Clonidine X 1 patch nkop CLONIDINE HCL 17158370153 Adali RamachandranFOUZIA marin CLONIDINE HCL 0.2 MG TABS One tablet by mouth three times daily X 9 doses nkop CLONIDINE HCL 08306973384 Adali RamiresFOUZIA marlow IMODIUM A-D 2 MG TABS PRN Diarrhea Take 2 tablets by mouth every 8 hours X 96 hours nkop LOPERAMIDE HCL 86089880016 Adali QuirosFOUZIA gibson PROMETHAZINE HCL 25 MG TABS PRN nausea vomiting PO.take 1 tablet every 6 hrs nkop PROMETHAZINE HCL 88226275056 Adali E FOUZIA Best PROMETHAZINE HCL 25 MG SUPP PRN nausea vomiting per rectum.take 1 suppository every 6 hrs OR nkop PROMETHAZINE HCL 34274972098 Adali E FOUZIA Best PROMETHAZINE HCL 25 MG/ML SOLN PRN nausea/vomiting Give 1 ml IM every 6 hours x 96 hours NON-KOP PROMETHAZINE HCL 01731375417 Adali E FOUZIA Best PROMETHAZINE HCL 25 MG SUPP PRN nausea vomiting per rectum.take 1 suppository every 6 hrs OR nkop PROMETHAZINE HCL 99223090962 Adali E FOUZIA Best ATIVAN 1 MG TABS PRN Take 2 tablets po q 1 hr for agitation ,tremors,tachycardia(pulserate>=120) or diastolic bp>100mmHg nkop LORAZEPAM 15404518185 Adali E FOUZIA Best ATIVAN 2 MG/ML SOLN PRN 2 mg IM Q1 hours agitation, tremors, tachycardia (pulse rate greater than or equal to 120), or Diastolic blood pressure greater than 100mmHg X 4 days (96 hours) OR LORAZEPAM 12636616516 Adali E FOUZIA Best CHLORDIAZEPOXIDE HCL 25 MG CAPS Take 2 caps by mouth QID X 8 doses THEN 2 caps by mouth TID X 6 doses THEN 2 caps by mouth BID X 4 doses THEN 2 caps by mouth QD X 2 doses. NON-KOP CHLORDIAZEPOXIDE HCL 45229983151 Adali E FOUZIA Best THIAMINE HCL 100 MG TABS Take 1 tablet by mouth daily x 3 days NON-KOP THIAMINE HCL 63870144454 Adali E FOUZIA Best LISINOPRIL 10 MG TABS Take one tablet by mouth daily x 365 days nkop LISINOPRIL 55213932147 Adali E FOUZIA Best Medications Administered No information available. Allergies, Adverse Reactions, Alerts No information available.
--- OUTSIDE RECORDS SUMMARY | 2018-12-20 04:33 | XMS REPORT | Encounter Summary ---
Author Author FOUZIA Stringer, Court Cruz Organization [facility] Address Unknown Phone Unavailable Care Team Providers Care Sales Incentive Analyst Name Role Phone FOUZIA Best, Adali Hurtado Unavailable Conditions or Problems No information available. Medications Medication Instructions Start Date Stop Date Generic Name [facility] Provider LEVETIRACETAM 500 MG TABS Take 1 tablet by mouth twice daily x 30 days. nkop LEVETIRACETAM [id number] Adali Best NP THIAMINE HCL 100 MG/ML SOLN If not able to tolerate tabs, Give 100 mg IM daily x 3 days NON-KOP THIAMINE HCL 64017187362 Adali Best NP METFORMIN HCL 500 MG TABS Take 1 tablet by mouth twice daily x 365 days. nKOP METFORMIN HCL 09029190349 Adali Best NP BACTRIM DS 800-160 MG TABS Take 1 tablet by mouth twice daily x 10 days. n KOP SULFAMETHOXAZOLE-TRIMETHOPRIM 82688841206 Adali Best NP PROAIR HFA AERS take 2 puffs by mouth BID/PRN asthma for 60 days nkop ALBUTEROL SULFATE AERS 02522876179 Adali Best NP LEVOTHYROXINE SODIUM 100 MCG TABS Take 1 tablet by mouth every morning x 90 days. n KOP LEVOTHYROXINE SODIUM 52369630553 Adali Best NP ADVAIR DISKUS 250-50 MCG/DOSE AEPB 1 puff inhaled twice daily x 30 days NKOP FLUTICASONE-SALMETEROL 89756907532 Adali Evansu, SEA[employer]OD FISHERMAN DEPAKOTE ER 500 MG [id number] one tablet by mouth one times QPM 365 days NKOP DIVALPROEX SODIUM 55326140589 Adali BestFOUZIA SINGULAIR 10 MG TABS Take 1 tablet by mouth in the evening x 30 days. NKOP MONTELUKAST SODIUM 82061842663 Adali RamiresFOUZIA marlow TRICOR 145 MG TABS Take 1 tablet by mouth every evening x 365 days. NKOP FENOFIBRATE 46675032729 Adali RamiresgmsusanFOUZIA SAVYMKJQ-IWC-9 0.2 MG/24HR PTWK Start with 6th dose of Clonidine X 1 patch nkop CLONIDINE HCL 38934888046 Adali RamiresFOUZIA marlow CLONIDINE HCL 0.2 MG TABS One tablet by mouth three times daily X 9 doses nkop CLONIDINE HCL 23293395398 Adali RamiresFOUZIA marlow IMODIUM A-D 2 MG TABS PRN Diarrhea Take 2 tablets by mouth every 8 hours X 96 hours nkop LOPERAMIDE HCL 77600316990 Adali RamiresFOUZIA marlow PROMETHAZINE HCL 25 MG TABS PRN nausea vomiting PO.take 1 tablet every 6 hrs nkop PROMETHAZINE HCL 81138381450 Adali QuirosFOUZIA gibson PROMETHAZINE HCL 25 MG SUPP PRN nausea vomiting per rectum.take 1 suppository every 6 hrs OR nkop PROMETHAZINE HCL 41812091042 Adali E FOUZIA Best PROMETHAZINE HCL 25 MG/ML SOLN PRN nausea/vomiting Give 1 ml IM every 6 hours x 96 hours NON-KOP PROMETHAZINE HCL 34596639553 Adali Bryant FOUZIA Best PROMETHAZINE HCL 25 MG SUPP PRN nausea vomiting per rectum.take 1 suppository every 6 hrs OR nkop PROMETHAZINE HCL 91965233484 Adali E FOUZIA Best ATIVAN 1 MG TABS PRN Take 2 tablets po q 1 hr for agitation ,tremors,tachycardia(pulserate>=120) or diastolic bp>100mmHg nkop LORAZEPAM 97179772107 Adali E FOUZIA Best ATIVAN 2 MG/ML SOLN PRN 2 mg IM Q1 hours agitation, tremors, tachycardia (pulse rate greater than or equal to 120), or Diastolic blood pressure greater than 100mmHg X 4 days (96 hours) OR LORAZEPAM 97139905819 Adali E FOUZIA Best CHLORDIAZEPOXIDE HCL 25 MG CAPS Take 2 caps by mouth QID X 8 doses THEN 2 caps by mouth TID X 6 doses THEN 2 caps by mouth BID X 4 doses THEN 2 caps by mouth QD X 2 doses. NON-KOP CHLORDIAZEPOXIDE HCL 30867946006 Adali E FOUZIA Best THIAMINE HCL 100 MG TABS Take 1 tablet by mouth daily x 3 days NON-KOP THIAMINE HCL 04001259057 Adali E FOUZIA Best LISINOPRIL 10 MG TABS Take one tablet by mouth daily x 365 days nkop LISINOPRIL 62358337518 Adali E FOUZIA Best Medications Administered No information available. Allergies, Adverse Reactions, Alerts No information available.
--- OUTSIDE RECORDS SUMMARY | 2018-12-20 04:33 | XMS REPORT | Encounter Summary ---
Author Author SHANNEN Graham, Isael Organization [facility] Address Unknown Phone Unavailable Care Team Providers Care Senior Estimator Name Role Phone FOUZIA Best, Adali Hurtado Unavailable Conditions or Problems No information available. Medications Medication Instructions Start Date Stop Date Generic Name [facility] Provider LEVETIRACETAM 500 MG TABS Take 1 tablet by mouth twice daily x 30 days. nkop LEVETIRACETAM [id number] Adali Best NP THIAMINE HCL 100 MG/ML SOLN If not able to tolerate tabs, Give 100 mg IM daily x 3 days NON-KOP THIAMINE HCL 65647839258 Adali Best NP METFORMIN HCL 500 MG TABS Take 1 tablet by mouth twice daily x 365 days. nKOP METFORMIN HCL 12324746094 Adali Best NP BACTRIM DS 800-160 MG TABS Take 1 tablet by mouth twice daily x 10 days. n KOP SULFAMETHOXAZOLE-TRIMETHOPRIM 96787871207 Adali Best NP PROAIR HFA AERS take 2 puffs by mouth BID/PRN asthma for 60 days nkop ALBUTEROL SULFATE AERS 91174699825 Adali Best NP LEVOTHYROXINE SODIUM 100 MCG TABS Take 1 tablet by mouth every morning x 90 days. n KOP LEVOTHYROXINE SODIUM 91370166539 Adali Best NP ADVAIR DISKUS 250-50 MCG/DOSE AEPB 1 puff inhaled twice daily x 30 days NKOP FLUTICASONE-SALMETEROL 83777973628 Adali Best NP DEPAKOTE ER 500 MG [id number] one tablet by mouth one times QPM 365 days NKOP DIVALPROEX SODIUM 49130498814 Adali RamiresFOUZIA marlow SINGULAIR 10 MG TABS Take 1 tablet by mouth in the evening x 30 days. NKOP MONTELUKAST SODIUM 19504201458 Adali RamiresFOUZIA marlow TRICOR 145 MG TABS Take 1 tablet by mouth every evening x 365 days. NKOP FENOFIBRATE 30994303543 Adali RamiresgmsusanFOUZIA WLLYYVRL-MER-5 0.2 MG/24HR PTWK Start with 6th dose of Clonidine X 1 patch nkop CLONIDINE HCL 01506411619 Adali RamachanrdanFOUZIA marin CLONIDINE HCL 0.2 MG TABS One tablet by mouth three times daily X 9 doses nkop CLONIDINE HCL 42609819080 Adali RamiresFOUZIA marlow IMODIUM A-D 2 MG TABS PRN Diarrhea Take 2 tablets by mouth every 8 hours X 96 hours nkop LOPERAMIDE HCL 75890992648 Adali QuirosFOUZIA gibson PROMETHAZINE HCL 25 MG TABS PRN nausea vomiting PO.take 1 tablet every 6 hrs nkop PROMETHAZINE HCL 63027391065 Adali Hurtado FOUZIA Best PROMETHAZINE HCL 25 MG SUPP PRN nausea vomiting per rectum.take 1 suppository every 6 hrs OR nkop PROMETHAZINE HCL 86948038083 Adali Hurtado FOUZIA Best PROMETHAZINE HCL 25 MG/ML SOLN PRN nausea/vomiting Give 1 ml IM every 6 hours x 96 hours NON-KOP PROMETHAZINE HCL 83854749628 Adali Bryant FOUZIA Best PROMETHAZINE HCL 25 MG SUPP PRN nausea vomiting per rectum.take 1 suppository every 6 hrs OR nkop PROMETHAZINE HCL 75305186575 Adali E FOUZIA Best ATIVAN 1 MG TABS PRN Take 2 tablets po q 1 hr for agitation ,tremors,tachycardia(pulserate>=120) or diastolic bp>100mmHg nkop LORAZEPAM 04063280850 Adali E FOUZIA Best ATIVAN 2 MG/ML SOLN PRN 2 mg IM Q1 hours agitation, tremors, tachycardia (pulse rate greater than or equal to 120), or Diastolic blood pressure greater than 100mmHg X 4 days (96 hours) OR LORAZEPAM 99981881438 Adali E FOUZIA Best CHLORDIAZEPOXIDE HCL 25 MG CAPS Take 2 caps by mouth QID X 8 doses THEN 2 caps by mouth TID X 6 doses THEN 2 caps by mouth BID X 4 doses THEN 2 caps by mouth QD X 2 doses. NON-KOP CHLORDIAZEPOXIDE HCL 54467588171 Adali E FOUZIA Best THIAMINE HCL 100 MG TABS Take 1 tablet by mouth daily x 3 days NON-KOP THIAMINE HCL 78681540811 Adali E FOUZIA Best LISINOPRIL 10 MG TABS Take one tablet by mouth daily x 365 days nkop LISINOPRIL 54625467935 Adali E FOUZIA Best Medications Administered No information available. Allergies, Adverse Reactions, Alerts No information available.
--- OUTSIDE RECORDS SUMMARY | 2018-12-20 04:33 | XMS REPORT | Encounter Summary ---
Author Author ANNA Irving Ljon C Organization [facility] Address Unknown Phone Unavailable Care Team Providers Care Stick Feeder Name Role Phone FOUZIA Best, Adali Hurtado Unavailable Conditions or Problems No information available. Medications Medication Instructions Start Date Stop Date Generic Name [facility] Provider LEVETIRACETAM 500 MG TABS Take 1 tablet by mouth twice daily x 30 days. nkop LEVETIRACETAM 43130036139 Adali Best NP THIAMINE HCL 100 MG/ML SOLN If not able to tolerate tabs, Give 100 mg IM daily x 3 days NON-KOP THIAMINE HCL 55445399304 Adali Bryant Best NP METFORMIN HCL 500 MG TABS Take 1 tablet by mouth twice daily x 365 days. nKOP METFORMIN HCL 22553256798 Adali Bryant Best NP BACTRIM DS 800-160 MG TABS Take 1 tablet by mouth twice daily x 10 days. n KOP SULFAMETHOXAZOLE-TRIMETHOPRIM 45052241738 Adali Best NP PROAIR HFA AERS take 2 puffs by mouth BID/PRN asthma for 60 days nkop ALBUTEROL SULFATE AERS 83347987124 Adali E FOUZIA Bets LEVOTHYROXINE SODIUM 100 MCG TABS Take 1 tablet by mouth every morning x 90 days. n KOP LEVOTHYROXINE SODIUM 29575990218 Adali Bryant Best NP ADVAIR DISKUS 250-50 MCG/DOSE AEPB 1 puff inhaled twice daily x 30 days NKOP FLUTICASONE-SALMETEROL 97617502347 Adali RamiresFOUZIA marlow DEPAKOTE ER 500 MG [id number] one tablet by mouth one times QPM 365 days NKOP DIVALPROEX SODIUM 69280090745 Adali BestFOUZIA SINGULAIR 10 MG TABS Take 1 tablet by mouth in the evening x 30 days. NKOP MONTELUKAST SODIUM 92603905147 Adali RamiresgmsusanFOUZIA TRICOR 145 MG TABS Take 1 tablet by mouth every evening x 365 days. NKOP FENOFIBRATE 62153486960 Adali RamiresgmsusanFOUZIA FRAEEBED-EJX-6 0.2 MG/24HR PTWK Start with 6th dose of Clonidine X 1 patch nkop CLONIDINE HCL 66683942527 Adali RamiresFOUZIA marlow CLONIDINE HCL 0.2 MG TABS One tablet by mouth three times daily X 9 doses nkop CLONIDINE HCL 00191706580 Adali RamiresFOUZIA marlow IMODIUM A-D 2 MG TABS PRN Diarrhea Take 2 tablets by mouth every 8 hours X 96 hours nkop LOPERAMIDE HCL 43378074649 Adali RamiresFOUZIA marlow PROMETHAZINE HCL 25 MG TABS PRN nausea vomiting PO.take 1 tablet every 6 hrs nkop PROMETHAZINE HCL 02254075257 Adali Hurtado FOUZIA Best PROMETHAZINE HCL 25 MG SUPP PRN nausea vomiting per rectum.take 1 suppository every 6 hrs OR nkop PROMETHAZINE HCL 88698250104 Adali E FOUZIA Best PROMETHAZINE HCL 25 MG/ML SOLN PRN nausea/vomiting Give 1 ml IM every 6 hours x 96 hours NON-KOP PROMETHAZINE HCL 06783737626 Adali Bryant FOUZIA Best PROMETHAZINE HCL 25 MG SUPP PRN nausea vomiting per rectum.take 1 suppository every 6 hrs OR nkop PROMETHAZINE HCL 56678050963 Adali Bryant FOUZIA Best ATIVAN 1 MG TABS PRN Take 2 tablets po q 1 hr for agitation ,tremors,tachycardia(pulserate>=120) or diastolic bp>100mmHg nkop LORAZEPAM 90614349333 Adali E FOUZIA Best ATIVAN 2 MG/ML SOLN PRN 2 mg IM Q1 hours agitation, tremors, tachycardia (pulse rate greater than or equal to 120), or Diastolic blood pressure greater than 100mmHg X 4 days (96 hours) OR LORAZEPAM 99346464747 Adali E FOUZIA Best CHLORDIAZEPOXIDE HCL 25 MG CAPS Take 2 caps by mouth QID X 8 doses THEN 2 caps by mouth TID X 6 doses THEN 2 caps by mouth BID X 4 doses THEN 2 caps by mouth QD X 2 doses. NON-KOP CHLORDIAZEPOXIDE HCL 80846050894 Adali E FOUZIA Best THIAMINE HCL 100 MG TABS Take 1 tablet by mouth daily x 3 days NON-KOP THIAMINE HCL 00735453207 Adali E FOUZIA Best LISINOPRIL 10 MG TABS Take one tablet by mouth daily x 365 days nkop LISINOPRIL 03784674633 Adali E FOUZIA Best Medications Administered No information available. Allergies, Adverse Reactions, Alerts No information available.
--- OUTSIDE RECORDS SUMMARY | 2018-12-20 04:33 | XMS REPORT | Encounter Summary ---
Author Author ANNA Irving Ljon C Organization [facility] Address Unknown Phone Unavailable Care Team Providers Care Tank House Operator Name Role Phone FOUZIA Best, Adali Hurtado Unavailable Conditions or Problems No information available. Medications Medication Instructions Start Date Stop Date Generic Name [facility] Provider LEVETIRACETAM 500 MG TABS Take 1 tablet by mouth twice daily x 30 days. nkop LEVETIRACETAM 48665639669 Adali Best NP THIAMINE HCL 100 MG/ML SOLN If not able to tolerate tabs, Give 100 mg IM daily x 3 days NON-KOP THIAMINE HCL 36831159954 Adali Bryant Best NP METFORMIN HCL 500 MG TABS Take 1 tablet by mouth twice daily x 365 days. nKOP METFORMIN HCL 78343136436 Adali Bryant Best NP BACTRIM DS 800-160 MG TABS Take 1 tablet by mouth twice daily x 10 days. n KOP SULFAMETHOXAZOLE-TRIMETHOPRIM 19114330638 Adali Best NP PROAIR HFA AERS take 2 puffs by mouth BID/PRN asthma for 60 days nkop ALBUTEROL SULFATE AERS 96839114398 Adali E FOUZIA Best LEVOTHYROXINE SODIUM 100 MCG TABS Take 1 tablet by mouth every morning x 90 days. n KOP LEVOTHYROXINE SODIUM 62783865806 Adali Bryant Best NP ADVAIR DISKUS 250-50 MCG/DOSE AEPB 1 puff inhaled twice daily x 30 days NKOP FLUTICASONE-SALMETEROL 86616990010 Adali RamiresFOUZIA marlow DEPAKOTE ER 500 MG [id number] one tablet by mouth one times QPM 365 days NKOP DIVALPROEX SODIUM 87390536793 Adali BestFOUZIA SINGULAIR 10 MG TABS Take 1 tablet by mouth in the evening x 30 days. NKOP MONTELUKAST SODIUM 45400834514 Adali RamiresgmsusanFOUZIA TRICOR 145 MG TABS Take 1 tablet by mouth every evening x 365 days. NKOP FENOFIBRATE 23023498885 Adali RamiresgmsusanFOUZIA UELVEDVU-ELD-2 0.2 MG/24HR PTWK Start with 6th dose of Clonidine X 1 patch nkop CLONIDINE HCL 04149896794 Adali RamiresFOUZIA marlow CLONIDINE HCL 0.2 MG TABS One tablet by mouth three times daily X 9 doses nkop CLONIDINE HCL 97792702947 Adali RamiresFOUZIA marlow IMODIUM A-D 2 MG TABS PRN Diarrhea Take 2 tablets by mouth every 8 hours X 96 hours nkop LOPERAMIDE HCL 31034005136 Adali RamiresFOUZIA marlow PROMETHAZINE HCL 25 MG TABS PRN nausea vomiting PO.take 1 tablet every 6 hrs nkop PROMETHAZINE HCL 70602377879 Adali Hurtado FOUZIA Best PROMETHAZINE HCL 25 MG SUPP PRN nausea vomiting per rectum.take 1 suppository every 6 hrs OR nkop PROMETHAZINE HCL 95339781120 Adali E FOUZIA Best PROMETHAZINE HCL 25 MG/ML SOLN PRN nausea/vomiting Give 1 ml IM every 6 hours x 96 hours NON-KOP PROMETHAZINE HCL 93074076144 Adali Bryant FOUZIA Best PROMETHAZINE HCL 25 MG SUPP PRN nausea vomiting per rectum.take 1 suppository every 6 hrs OR nkop PROMETHAZINE HCL 17837422607 Adali Bryant FOUZIA Best ATIVAN 1 MG TABS PRN Take 2 tablets po q 1 hr for agitation ,tremors,tachycardia(pulserate>=120) or diastolic bp>100mmHg nkop LORAZEPAM 20242479876 Adali E FOUZIA Best ATIVAN 2 MG/ML SOLN PRN 2 mg IM Q1 hours agitation, tremors, tachycardia (pulse rate greater than or equal to 120), or Diastolic blood pressure greater than 100mmHg X 4 days (96 hours) OR LORAZEPAM 59432273204 Adali E FOUZIA Best CHLORDIAZEPOXIDE HCL 25 MG CAPS Take 2 caps by mouth QID X 8 doses THEN 2 caps by mouth TID X 6 doses THEN 2 caps by mouth BID X 4 doses THEN 2 caps by mouth QD X 2 doses. NON-KOP CHLORDIAZEPOXIDE HCL 03008553382 Adali E FOUZIA Best THIAMINE HCL 100 MG TABS Take 1 tablet by mouth daily x 3 days NON-KOP THIAMINE HCL 83545813374 Adali E FOUZIA Best LISINOPRIL 10 MG TABS Take one tablet by mouth daily x 365 days nkop LISINOPRIL 74648567831 Adali E FOUZIA Best Medications Administered No information available. Allergies, Adverse Reactions, Alerts No information available.
--- OUTSIDE RECORDS SUMMARY | 2018-12-20 04:33 | XMS REPORT | Encounter Summary ---
Author Author FOUZIA Best Ifeoma E Organization [facility] Address Unknown Phone Unavailable Care Team Providers Care Sales Project Manager Name Role Phone FOUZIA Best Ifeoma E Unavailable Conditions or Problems No information available. Medications Medication Instructions Start Date Stop Date Generic Name [facility] Provider LEVETIRACETAM 500 MG TABS Take 1 tablet by mouth twice daily x 30 days. nkop LEVETIRACETAM [id number] Adali Best NP THIAMINE HCL 100 MG/ML SOLN If not able to tolerate tabs, Give 100 mg IM daily x 3 days NON-KOP THIAMINE HCL 11302124025 Adali Bryant Best NP METFORMIN HCL 500 MG TABS Take 1 tablet by mouth twice daily x 365 days. nKOP METFORMIN HCL [id number] Adali Bryant Bets NP BACTRIM DS 800-160 MG TABS Take 1 tablet by mouth twice daily x 10 days. n KOP SULFAMETHOXAZOLE-TRIMETHOPRIM 23816963650 Adali Best NP PROAIR HFA AERS take 2 puffs by mouth BID/PRN asthma for 60 days nkop ALBUTEROL SULFATE AERS 51078878627 Adali Bryant Best NP LEVOTHYROXINE SODIUM 100 MCG TABS Take 1 tablet by mouth every morning x 90 days. n KOP LEVOTHYROXINE SODIUM 52598590022 Adali Bryant Best NP ADVAIR DISKUS 250-50 MCG/DOSE AEPB 1 puff inhaled twice daily x 30 days NKOP FLUTICASONE-SALMETEROL 18751607627 Adali RamiresFOUZIA marlow DEPAKOTE ER 500 MG [id number] one tablet by mouth one times QPM 365 days NKOP DIVALPROEX SODIUM 65522311402 Adali BestFOUZIA SINGULAIR 10 MG TABS Take 1 tablet by mouth in the evening x 30 days. NKOP MONTELUKAST SODIUM 23298023511 Adali RamiresgmsusanFOUZIA TRICOR 145 MG TABS Take 1 tablet by mouth every evening x 365 days. NKOP FENOFIBRATE 11185275814 Adali RamiresgmsusanFOUZIA [id number] 0.2 MG/24HR PTWK Start with 6th dose of Clonidine X 1 patch nkop CLONIDINE HCL 53889911062 Adali RamachandranFOUZIA marin CLONIDINE HCL 0.2 MG TABS One tablet by mouth three times daily X 9 doses nkop CLONIDINE HCL 02532567024 Adali RamiresFOUZIA marlow IMODIUM A-D 2 MG TABS PRN Diarrhea Take 2 tablets by mouth every 8 hours X 96 hours nkop LOPERAMIDE HCL 50444864378 Adali QuirosFOUZIA gibson PROMETHAZINE HCL 25 MG TABS PRN nausea vomiting PO.take 1 tablet every 6 hrs nkop PROMETHAZINE HCL 30073607867 Adali E FOUZIA Best PROMETHAZINE HCL 25 MG SUPP PRN nausea vomiting per rectum.take 1 suppository every 6 hrs OR nkop PROMETHAZINE HCL 81986501666 Adali E FOUZIA Best PROMETHAZINE HCL 25 MG/ML SOLN PRN nausea/vomiting Give 1 ml IM every 6 hours x 96 hours NON-KOP PROMETHAZINE HCL 06740569848 Adali E FOUZIA Best PROMETHAZINE HCL 25 MG SUPP PRN nausea vomiting per rectum.take 1 suppository every 6 hrs OR nkop PROMETHAZINE HCL 58760821913 Adali E FOUZIA Best ATIVAN 1 MG TABS PRN Take 2 tablets po q 1 hr for agitation ,tremors,tachycardia(pulserate>=120) or diastolic bp>100mmHg nkop LORAZEPAM 48933094041 Adali E FOUZIA Best ATIVAN 2 MG/ML SOLN PRN 2 mg IM Q1 hours agitation, tremors, tachycardia (pulse rate greater than or equal to 120), or Diastolic blood pressure greater than 100mmHg X 4 days (96 hours) OR LORAZEPAM 92662779406 Adali E FOUZIA Best CHLORDIAZEPOXIDE HCL 25 MG CAPS Take 2 caps by mouth QID X 8 doses THEN 2 caps by mouth TID X 6 doses THEN 2 caps by mouth BID X 4 doses THEN 2 caps by mouth QD X 2 doses. NON-KOP CHLORDIAZEPOXIDE HCL 00983437950 Adali E FOUZIA Best THIAMINE HCL 100 MG TABS Take 1 tablet by mouth daily x 3 days NON-KOP THIAMINE HCL 23387849066 Adali E FOUZIA Best LISINOPRIL 10 MG TABS Take one tablet by mouth daily x 365 days nkop LISINOPRIL 05606255155 Adali E FOUZIA Best Medications Administered No information available. Allergies, Adverse Reactions, Alerts No information available.
--- OUTSIDE RECORDS SUMMARY | 2018-12-20 04:33 | XMS REPORT | Encounter Summary ---
Author Author ANNA Irving Ljon C Organization [facility] Address Unknown Phone Unavailable Care Team Providers Care Systems Integration Advisor Name Role Phone FOUZIA Best, Adali Hurtado Unavailable Conditions or Problems No information available. Medications Medication Instructions Start Date Stop Date Generic Name [facility] Provider LEVETIRACETAM 500 MG TABS Take 1 tablet by mouth twice daily x 30 days. nkop LEVETIRACETAM [id number] Adali Best NP THIAMINE HCL 100 MG/ML SOLN If not able to tolerate tabs, Give 100 mg IM daily x 3 days NON-KOP THIAMINE HCL 29982898916 Adali Bryant Best NP METFORMIN HCL 500 MG TABS Take 1 tablet by mouth twice daily x 365 days. nKOP METFORMIN HCL 60670782310 Adali Bryant Best NP BACTRIM DS 800-160 MG TABS Take 1 tablet by mouth twice daily x 10 days. n KOP SULFAMETHOXAZOLE-TRIMETHOPRIM 88565541029 Adali Best NP PROAIR HFA AERS take 2 puffs by mouth BID/PRN asthma for 60 days nkop ALBUTEROL SULFATE AERS 47678893787 Adali E FOUZIA Best LEVOTHYROXINE SODIUM 100 MCG TABS Take 1 tablet by mouth every morning x 90 days. n KOP LEVOTHYROXINE SODIUM 54909627729 Adali Bryant Best NP ADVAIR DISKUS 250-50 MCG/DOSE AEPB 1 puff inhaled twice daily x 30 days NKOP FLUTICASONE-SALMETEROL 29010478482 Adali RamiresFOUZIA marlow DEPAKOTE ER 500 MG [id number] one tablet by mouth one times QPM 365 days NKOP DIVALPROEX SODIUM 58868410516 Adali BestFOUZIA SINGULAIR 10 MG TABS Take 1 tablet by mouth in the evening x 30 days. NKOP MONTELUKAST SODIUM 40771697285 Adali RamiresgmsusanFOUZIA TRICOR 145 MG TABS Take 1 tablet by mouth every evening x 365 days. NKOP FENOFIBRATE 06948051839 Adali RamiresgmsusanFOUZIA [id number] 0.2 MG/24HR PTWK Start with 6th dose of Clonidine X 1 patch nkop CLONIDINE HCL 94199619904 Adali RamiresFOUZIA marlow CLONIDINE HCL 0.2 MG TABS One tablet by mouth three times daily X 9 doses nkop CLONIDINE HCL 03521531227 Adali RamiresFOUZIA marlow IMODIUM A-D 2 MG TABS PRN Diarrhea Take 2 tablets by mouth every 8 hours X 96 hours nkop LOPERAMIDE HCL 63536507903 Adali RamiresFOUZIA marlow PROMETHAZINE HCL 25 MG TABS PRN nausea vomiting PO.take 1 tablet every 6 hrs nkop PROMETHAZINE HCL 43553488288 Adali Hurtado FOUZIA Best PROMETHAZINE HCL 25 MG SUPP PRN nausea vomiting per rectum.take 1 suppository every 6 hrs OR nkop PROMETHAZINE HCL 63106680012 Adali E FOUZIA Best PROMETHAZINE HCL 25 MG/ML SOLN PRN nausea/vomiting Give 1 ml IM every 6 hours x 96 hours NON-KOP PROMETHAZINE HCL 95182320979 Adali Bryant FOUZIA Best PROMETHAZINE HCL 25 MG SUPP PRN nausea vomiting per rectum.take 1 suppository every 6 hrs OR nkop PROMETHAZINE HCL 79049454919 Adali Bryant FOUZIA Best ATIVAN 1 MG TABS PRN Take 2 tablets po q 1 hr for agitation ,tremors,tachycardia(pulserate>=120) or diastolic bp>100mmHg nkop LORAZEPAM 38536219636 Adali E FOUZIA Best ATIVAN 2 MG/ML SOLN PRN 2 mg IM Q1 hours agitation, tremors, tachycardia (pulse rate greater than or equal to 120), or Diastolic blood pressure greater than 100mmHg X 4 days (96 hours) OR LORAZEPAM 74030191332 Adali E FOUZIA Best CHLORDIAZEPOXIDE HCL 25 MG CAPS Take 2 caps by mouth QID X 8 doses THEN 2 caps by mouth TID X 6 doses THEN 2 caps by mouth BID X 4 doses THEN 2 caps by mouth QD X 2 doses. NON-KOP CHLORDIAZEPOXIDE HCL 66172863995 Adali E FOUZIA Best THIAMINE HCL 100 MG TABS Take 1 tablet by mouth daily x 3 days NON-KOP THIAMINE HCL 91212163469 Adali E FOUZIA Best LISINOPRIL 10 MG TABS Take one tablet by mouth daily x 365 days nkop LISINOPRIL 32272447685 Adali E FOUZIA Best Medications Administered No information available. Allergies, Adverse Reactions, Alerts No information available.
--- OUTSIDE RECORDS SUMMARY | 2018-12-20 04:33 | XMS REPORT | Encounter Summary ---
Author Author SHANNEN Dickerson, [facility] Address Unknown Phone Unavailable Care Team Providers Care Roasterman Name Role Phone FOUZIA Best, Adali Hurtado Unavailable Conditions or Problems No information available. Medications Medication Instructions Start Date Stop Date Generic Name [facility] Provider LEVETIRACETAM 500 MG TABS Take 1 tablet by mouth twice daily x 30 days. nkop LEVETIRACETAM [id number] Adali Best NP THIAMINE HCL 100 MG/ML SOLN If not able to tolerate tabs, Give 100 mg IM daily x 3 days NON-KOP THIAMINE HCL 46164026561 Adali Best NP METFORMIN HCL 500 MG TABS Take 1 tablet by mouth twice daily x 365 days. nKOP METFORMIN HCL 59348237211 Adali Best NP BACTRIM DS 800-160 MG TABS Take 1 tablet by mouth twice daily x 10 days. n KOP SULFAMETHOXAZOLE-TRIMETHOPRIM 04645362607 Adali Best NP PROAIR HFA AERS take 2 puffs by mouth BID/PRN asthma for 60 days nkop ALBUTEROL SULFATE AERS 07645652135 Adali Best NP LEVOTHYROXINE SODIUM 100 MCG TABS Take 1 tablet by mouth every morning x 90 days. n KOP LEVOTHYROXINE SODIUM 39850685720 Adali Best NP ADVAIR DISKUS 250-50 MCG/DOSE AEPB 1 puff inhaled twice daily x 30 days NKOP FLUTICASONE-SALMETEROL 57853698385 Adali Best, SENIOR QUALITY ASSURANCE ENGINEER DEPAKOTE ER 500 MG [id number] one tablet by mouth one times QPM 365 days NKOP DIVALPROEX SODIUM 61551899610 Adali RamiresgmsusanFOUZIA SINGULAIR 10 MG TABS Take 1 tablet by mouth in the evening x 30 days. NKOP MONTELUKAST SODIUM 47487904559 Adali RamiresFOUZIA marlow TRICOR 145 MG TABS Take 1 tablet by mouth every evening x 365 days. NKOP FENOFIBRATE 17861921265 Adali RamiresgmsusanFOUZIA [id number] 0.2 MG/24HR PTWK Start with 6th dose of Clonidine X 1 patch nkop CLONIDINE HCL 74768809481 Adali QuirosFOUZIA gibson CLONIDINE HCL 0.2 MG TABS One tablet by mouth three times daily X 9 doses nkop CLONIDINE HCL 84936875018 Adali RamiresFOUZIA marlow IMODIUM A-D 2 MG TABS PRN Diarrhea Take 2 tablets by mouth every 8 hours X 96 hours nkop LOPERAMIDE HCL 83002561802 Adali QuirosFOUZIA gibson PROMETHAZINE HCL 25 MG TABS PRN nausea vomiting PO.take 1 tablet every 6 hrs nkop PROMETHAZINE HCL 76816244589 Adali Hurtado FOUZIA Best PROMETHAZINE HCL 25 MG SUPP PRN nausea vomiting per rectum.take 1 suppository every 6 hrs OR nkop PROMETHAZINE HCL 11136855399 Adali E FOUZIA Best PROMETHAZINE HCL 25 MG/ML SOLN PRN nausea/vomiting Give 1 ml IM every 6 hours x 96 hours NON-KOP PROMETHAZINE HCL 89021107414 Adali Bryant FOUZIA Best PROMETHAZINE HCL 25 MG SUPP PRN nausea vomiting per rectum.take 1 suppository every 6 hrs OR nkop PROMETHAZINE HCL 21068508666 Adali E FOUZIA Best ATIVAN 1 MG TABS PRN Take 2 tablets po q 1 hr for agitation ,tremors,tachycardia(pulserate>=120) or diastolic bp>100mmHg nkop LORAZEPAM 46037689622 Adali E FOUZIA Best ATIVAN 2 MG/ML SOLN PRN 2 mg IM Q1 hours agitation, tremors, tachycardia (pulse rate greater than or equal to 120), or Diastolic blood pressure greater than 100mmHg X 4 days (96 hours) OR LORAZEPAM 00894212445 Adali E FOUZIA Best CHLORDIAZEPOXIDE HCL 25 MG CAPS Take 2 caps by mouth QID X 8 doses THEN 2 caps by mouth TID X 6 doses THEN 2 caps by mouth BID X 4 doses THEN 2 caps by mouth QD X 2 doses. NON-KOP CHLORDIAZEPOXIDE HCL 60898414340 Adali E FOUZIA Best THIAMINE HCL 100 MG TABS Take 1 tablet by mouth daily x 3 days NON-KOP THIAMINE HCL 24702743737 Adali E FOUZIA Best LISINOPRIL 10 MG TABS Take one tablet by mouth daily x 365 days nkop LISINOPRIL 12343886983 Adali E FOUZIA Best Medications Administered No information available. Allergies, Adverse Reactions, Alerts No information available.
--- OUTSIDE RECORDS SUMMARY | 2018-12-20 04:33 | XMS REPORT | Encounter Summary ---
Author Author KAROLINA Ovalle, [facility] Address Unknown Phone Unavailable Care Team Providers Care Etl Database Developer Name Role Phone FOUZIA Best, Adali Hurtado Unavailable Conditions or Problems No information available. Medications Medication Instructions Start Date Stop Date Generic Name [facility] Provider LEVETIRACETAM 500 MG TABS Take 1 tablet by mouth twice daily x 30 days. nkop LEVETIRACETAM [id number] Adali Best NP THIAMINE HCL 100 MG/ML SOLN If not able to tolerate tabs, Give 100 mg IM daily x 3 days NON-KOP THIAMINE HCL 89902643522 Adali Bryant Best NP METFORMIN HCL 500 MG TABS Take 1 tablet by mouth twice daily x 365 days. nKOP METFORMIN HCL 77918437816 Adali Bryant Best NP BACTRIM DS 800-160 MG TABS Take 1 tablet by mouth twice daily x 10 days. n KOP SULFAMETHOXAZOLE-TRIMETHOPRIM 46330854184 Adali Best NP PROAIR HFA AERS take 2 puffs by mouth BID/PRN asthma for 60 days nkop ALBUTEROL SULFATE AERS 66043592230 Adali E FOUZIA Best LEVOTHYROXINE SODIUM 100 MCG TABS Take 1 tablet by mouth every morning x 90 days. n KOP LEVOTHYROXINE SODIUM 11268079921 Adali Bryant Best NP ADVAIR DISKUS 250-50 MCG/DOSE AEPB 1 puff inhaled twice daily x 30 days NKOP FLUTICASONE-SALMETEROL 56797978576 Adali Evansu, ASSESSMENT ANALYST DEPAKOTE ER 500 MG [id number] one tablet by mouth one times QPM 365 days NKOP DIVALPROEX SODIUM 50227574297 Adali BestFOUZIA SINGULAIR 10 MG TABS Take 1 tablet by mouth in the evening x 30 days. NKOP MONTELUKAST SODIUM 55448895290 Adali RamiresFOUZIA marlow TRICOR 145 MG TABS Take 1 tablet by mouth every evening x 365 days. NKOP FENOFIBRATE 55271657475 Adali RamiresgmsusanFOUZIA [id number] 0.2 MG/24HR PTWK Start with 6th dose of Clonidine X 1 patch nkop CLONIDINE HCL 00356890668 Adali RamiresFOUZIA marlow CLONIDINE HCL 0.2 MG TABS One tablet by mouth three times daily X 9 doses nkop CLONIDINE HCL 60457763827 Adali RamiresFOUZIA marlow IMODIUM A-D 2 MG TABS PRN Diarrhea Take 2 tablets by mouth every 8 hours X 96 hours nkop LOPERAMIDE HCL 54269221478 Adali RamiresFOUZIA marlow PROMETHAZINE HCL 25 MG TABS PRN nausea vomiting PO.take 1 tablet every 6 hrs nkop PROMETHAZINE HCL 64519358098 Adali QuirosFOUZIA gibson PROMETHAZINE HCL 25 MG SUPP PRN nausea vomiting per rectum.take 1 suppository every 6 hrs OR nkop PROMETHAZINE HCL 30508855196 Adali E FOUZIA Best PROMETHAZINE HCL 25 MG/ML SOLN PRN nausea/vomiting Give 1 ml IM every 6 hours x 96 hours NON-KOP PROMETHAZINE HCL 90718165456 Adali Bryant FOUZIA Best PROMETHAZINE HCL 25 MG SUPP PRN nausea vomiting per rectum.take 1 suppository every 6 hrs OR nkop PROMETHAZINE HCL 03952180418 Adali E FOUZIA Best ATIVAN 1 MG TABS PRN Take 2 tablets po q 1 hr for agitation ,tremors,tachycardia(pulserate>=120) or diastolic bp>100mmHg nkop LORAZEPAM 10130570199 Adali E FOUZIA Best ATIVAN 2 MG/ML SOLN PRN 2 mg IM Q1 hours agitation, tremors, tachycardia (pulse rate greater than or equal to 120), or Diastolic blood pressure greater than 100mmHg X 4 days (96 hours) OR LORAZEPAM 68089782227 Adali E OFUZIA Best CHLORDIAZEPOXIDE HCL 25 MG CAPS Take 2 caps by mouth QID X 8 doses THEN 2 caps by mouth TID X 6 doses THEN 2 caps by mouth BID X 4 doses THEN 2 caps by mouth QD X 2 doses. NON-KOP CHLORDIAZEPOXIDE HCL 92882176574 Adali E FOUZIA Best THIAMINE HCL 100 MG TABS Take 1 tablet by mouth daily x 3 days NON-KOP THIAMINE HCL 95998035485 Adali E FOUZIA Best LISINOPRIL 10 MG TABS Take one tablet by mouth daily x 365 days nkop LISINOPRIL 89704250942 Adali E FOUZIA Best Medications Administered No information available. Allergies, Adverse Reactions, Alerts No information available.
--- OUTSIDE RECORDS SUMMARY | 2018-12-20 04:33 | XMS REPORT | Encounter Summary ---
Author Author SHANNEN Deng, [place] Organization [facility] Address Unknown Phone Unavailable Care Team Providers Care Housekeeper/Laundry Assistant Name Role Phone FOUZIA Best, Adali Hurtado Unavailable Conditions or Problems No information available. Medications Medication Instructions Start Date Stop Date Generic Name [facility] Provider LEVETIRACETAM 500 MG TABS Take 1 tablet by mouth twice daily x 30 days. nkop LEVETIRACETAM 28697489908 Adali Best NP THIAMINE HCL 100 MG/ML SOLN If not able to tolerate tabs, Give 100 mg IM daily x 3 days NON-KOP THIAMINE HCL 91995787621 Adali Bryant Best NP METFORMIN HCL 500 MG TABS Take 1 tablet by mouth twice daily x 365 days. nKOP METFORMIN HCL 22401526875 Adali Bryant Best NP BACTRIM DS 800-160 MG TABS Take 1 tablet by mouth twice daily x 10 days. n KOP SULFAMETHOXAZOLE-TRIMETHOPRIM 56812968786 Adali Best NP PROAIR HFA AERS take 2 puffs by mouth BID/PRN asthma for 60 days nkop ALBUTEROL SULFATE AERS 82917444126 Adali E FOUZIA Best LEVOTHYROXINE SODIUM 100 MCG TABS Take 1 tablet by mouth every morning x 90 days. n KOP LEVOTHYROXINE SODIUM 34909995617 Adali Bryant Best NP ADVAIR DISKUS 250-50 MCG/DOSE AEPB 1 puff inhaled twice daily x 30 days NKOP FLUTICASONE-SALMETEROL 25572178376 Adali Evansu, WINDOW FRAMER DEPAKOTE ER 500 MG [id number] one tablet by mouth one times QPM 365 days NKOP DIVALPROEX SODIUM 82507484566 Adali BestFOUZIA SINGULAIR 10 MG TABS Take 1 tablet by mouth in the evening x 30 days. NKOP MONTELUKAST SODIUM 29777516013 Adali RamiresFOUZIA marlow TRICOR 145 MG TABS Take 1 tablet by mouth every evening x 365 days. NKOP FENOFIBRATE 33380209934 Adali RamiresgmsusanFOUZIA [id number] 0.2 MG/24HR PTWK Start with 6th dose of Clonidine X 1 patch nkop CLONIDINE HCL 75691238152 Adali RamiresFOUZIA marlow CLONIDINE HCL 0.2 MG TABS One tablet by mouth three times daily X 9 doses nkop CLONIDINE HCL 85045831827 Adali RamiresFOUZIA marlow IMODIUM A-D 2 MG TABS PRN Diarrhea Take 2 tablets by mouth every 8 hours X 96 hours nkop LOPERAMIDE HCL 53084634059 Adali RamiresFOUZIA marlow PROMETHAZINE HCL 25 MG TABS PRN nausea vomiting PO.take 1 tablet every 6 hrs nkop PROMETHAZINE HCL 81489890190 Adali QuirosFOUZIA gibson PROMETHAZINE HCL 25 MG SUPP PRN nausea vomiting per rectum.take 1 suppository every 6 hrs OR nkop PROMETHAZINE HCL 49778150624 Adali E FOUZIA Best PROMETHAZINE HCL 25 MG/ML SOLN PRN nausea/vomiting Give 1 ml IM every 6 hours x 96 hours NON-KOP PROMETHAZINE HCL 60319378756 Adali Bryant FOUZIA Best PROMETHAZINE HCL 25 MG SUPP PRN nausea vomiting per rectum.take 1 suppository every 6 hrs OR nkop PROMETHAZINE HCL 28046099744 Adali E FOUZIA Best ATIVAN 1 MG TABS PRN Take 2 tablets po q 1 hr for agitation ,tremors,tachycardia(pulserate>=120) or diastolic bp>100mmHg nkop LORAZEPAM 87184917491 Adali E FOUZIA Best ATIVAN 2 MG/ML SOLN PRN 2 mg IM Q1 hours agitation, tremors, tachycardia (pulse rate greater than or equal to 120), or Diastolic blood pressure greater than 100mmHg X 4 days (96 hours) OR LORAZEPAM 21785304503 Adali E FOUZIA Best CHLORDIAZEPOXIDE HCL 25 MG CAPS Take 2 caps by mouth QID X 8 doses THEN 2 caps by mouth TID X 6 doses THEN 2 caps by mouth BID X 4 doses THEN 2 caps by mouth QD X 2 doses. NON-KOP CHLORDIAZEPOXIDE HCL 42286316983 Adali E FOUZIA Best THIAMINE HCL 100 MG TABS Take 1 tablet by mouth daily x 3 days NON-KOP THIAMINE HCL 54495869614 Adali E FOUZIA Best LISINOPRIL 10 MG TABS Take one tablet by mouth daily x 365 days nkop LISINOPRIL 27951513790 Adali E FOUZIA Best Medications Administered No information available. Allergies, Adverse Reactions, Alerts No information available.
--- OUTSIDE RECORDS SUMMARY | 2018-12-20 04:33 | XMS REPORT | Encounter Summary ---
Author Author KAROLINA Saucedo, [facility] Address Unknown Phone Unavailable Care Team Providers Care Elevator Constructor Electric Name Role Phone FOUZIA Best, Adali Hurtado Unavailable Conditions or Problems No information available. Medications Medication Instructions Start Date Stop Date Generic Name [facility] Provider LEVETIRACETAM 500 MG TABS Take 1 tablet by mouth twice daily x 30 days. nkop LEVETIRACETAM 61989056110 Adali Best NP THIAMINE HCL 100 MG/ML SOLN If not able to tolerate tabs, Give 100 mg IM daily x 3 days NON-KOP THIAMINE HCL 50760505628 Adali Bryant Best NP METFORMIN HCL 500 MG TABS Take 1 tablet by mouth twice daily x 365 days. nKOP METFORMIN HCL 58730278446 Adali Bryant Best NP BACTRIM DS 800-160 MG TABS Take 1 tablet by mouth twice daily x 10 days. n KOP SULFAMETHOXAZOLE-TRIMETHOPRIM 47995569262 Adali Best NP PROAIR HFA AERS take 2 puffs by mouth BID/PRN asthma for 60 days nkop ALBUTEROL SULFATE AERS 82712876751 Adali Bryant Best NP LEVOTHYROXINE SODIUM 100 MCG TABS Take 1 tablet by mouth every morning x 90 days. n KOP LEVOTHYROXINE SODIUM 56202612528 Adali Best NP ADVAIR DISKUS 250-50 MCG/DOSE AEPB 1 puff inhaled twice daily x 30 days NKOP FLUTICASONE-SALMETEROL 78350264099 Adali RamiresFOUZIA marlow DEPAKOTE ER 500 MG [id number] one tablet by mouth one times QPM 365 days NKOP DIVALPROEX SODIUM 91046615607 Adali BestFOUZIA SINGULAIR 10 MG TABS Take 1 tablet by mouth in the evening x 30 days. NKOP MONTELUKAST SODIUM 97144892119 Adali RamiresgmsusanFOUZIA TRICOR 145 MG TABS Take 1 tablet by mouth every evening x 365 days. NKOP FENOFIBRATE 14256828517 Adali RamiresgmsusanFOUZIA [id number] 0.2 MG/24HR PTWK Start with 6th dose of Clonidine X 1 patch nkop CLONIDINE HCL 05548922221 Adali RamiresFOUZIA marlow CLONIDINE HCL 0.2 MG TABS One tablet by mouth three times daily X 9 doses nkop CLONIDINE HCL 54860842526 Adali RamiresFOUZIA marlow IMODIUM A-D 2 MG TABS PRN Diarrhea Take 2 tablets by mouth every 8 hours X 96 hours nkop LOPERAMIDE HCL 28883078184 Adali RamiresFOUZIA marlow PROMETHAZINE HCL 25 MG TABS PRN nausea vomiting PO.take 1 tablet every 6 hrs nkop PROMETHAZINE HCL 34377888371 Adali Hurtado FOUZIA Best PROMETHAZINE HCL 25 MG SUPP PRN nausea vomiting per rectum.take 1 suppository every 6 hrs OR nkop PROMETHAZINE HCL 15979928184 Adali E FOUZIA Best PROMETHAZINE HCL 25 MG/ML SOLN PRN nausea/vomiting Give 1 ml IM every 6 hours x 96 hours NON-KOP PROMETHAZINE HCL 03288186259 Adali Bryant FOUZIA Best PROMETHAZINE HCL 25 MG SUPP PRN nausea vomiting per rectum.take 1 suppository every 6 hrs OR nkop PROMETHAZINE HCL 29676999831 Adali Bryant FOUZIA Best ATIVAN 1 MG TABS PRN Take 2 tablets po q 1 hr for agitation ,tremors,tachycardia(pulserate>=120) or diastolic bp>100mmHg nkop LORAZEPAM 71286458999 Adali E FOUZIA Best ATIVAN 2 MG/ML SOLN PRN 2 mg IM Q1 hours agitation, tremors, tachycardia (pulse rate greater than or equal to 120), or Diastolic blood pressure greater than 100mmHg X 4 days (96 hours) OR LORAZEPAM 20964119016 Adali E FOUZIA Best CHLORDIAZEPOXIDE HCL 25 MG CAPS Take 2 caps by mouth QID X 8 doses THEN 2 caps by mouth TID X 6 doses THEN 2 caps by mouth BID X 4 doses THEN 2 caps by mouth QD X 2 doses. NON-KOP CHLORDIAZEPOXIDE HCL 47439009317 Adali E FOUZIA Best THIAMINE HCL 100 MG TABS Take 1 tablet by mouth daily x 3 days NON-KOP THIAMINE HCL 87214925969 Adali E FOUZIA Best LISINOPRIL 10 MG TABS Take one tablet by mouth daily x 365 days nkop LISINOPRIL 29653343991 Adali E FOUZIA Best Medications Administered No information available. Allergies, Adverse Reactions, Alerts No information available.
--- OUTSIDE RECORDS SUMMARY | 2018-12-20 04:33 | XMS REPORT | Encounter Summary ---
Author Author ANNA Siegel Ayo D Organization [facility] Address Unknown Phone Unavailable Care Team Providers Care Wood Experimental Mechanic Name Role Phone FOUZIA Best, Adali Hurtado Unavailable Conditions or Problems No information available. Medications Medication Instructions Start Date Stop Date Generic Name [facility] Provider LEVETIRACETAM 500 MG TABS Take 1 tablet by mouth twice daily x 30 days. nkop LEVETIRACETAM [id number] Adali Best NP THIAMINE HCL 100 MG/ML SOLN If not able to tolerate tabs, Give 100 mg IM daily x 3 days NON-KOP THIAMINE HCL 24673332037 Adali Bryant Best NP METFORMIN HCL 500 MG TABS Take 1 tablet by mouth twice daily x 365 days. nKOP METFORMIN HCL 49890169788 Adali Bryant Best NP BACTRIM DS 800-160 MG TABS Take 1 tablet by mouth twice daily x 10 days. n KOP SULFAMETHOXAZOLE-TRIMETHOPRIM 45626469304 Adali Best NP PROAIR HFA AERS take 2 puffs by mouth BID/PRN asthma for 60 days nkop ALBUTEROL SULFATE AERS 39238192064 Adali Bryant Best NP LEVOTHYROXINE SODIUM 100 MCG TABS Take 1 tablet by mouth every morning x 90 days. n KOP LEVOTHYROXINE SODIUM 57590401342 Adali Best NP ADVAIR DISKUS 250-50 MCG/DOSE AEPB 1 puff inhaled twice daily x 30 days NKOP FLUTICASONE-SALMETEROL 78174286462 Adali RamiresFOUZIA marlow DEPAKOTE ER 500 MG [id number] one tablet by mouth one times QPM 365 days NKOP DIVALPROEX SODIUM 98989140626 Adali BestFOUZIA SINGULAIR 10 MG TABS Take 1 tablet by mouth in the evening x 30 days. NKOP MONTELUKAST SODIUM 01810952213 Adali RamiresgmsusanFOUZIA TRICOR 145 MG TABS Take 1 tablet by mouth every evening x 365 days. NKOP FENOFIBRATE [id number] Adali RamiresgmsusanFOUZIA [id number]-3 0.2 MG/24HR PTWK Start with 6th dose of Clonidine X 1 patch nkop CLONIDINE HCL 50417342660 Adali RamiresFOUZIA marlow CLONIDINE HCL 0.2 MG TABS One tablet by mouth three times daily X 9 doses nkop CLONIDINE HCL 60180334718 Adali RamiresFOUZIA marlow IMODIUM A-D 2 MG TABS PRN Diarrhea Take 2 tablets by mouth every 8 hours X 96 hours nkop LOPERAMIDE HCL 39681803758 Adali RamiresFOUZIA marlow PROMETHAZINE HCL 25 MG TABS PRN nausea vomiting PO.take 1 tablet every 6 hrs nkop PROMETHAZINE HCL 72894023418 Adali Hurtado FOUZIA Best PROMETHAZINE HCL 25 MG SUPP PRN nausea vomiting per rectum.take 1 suppository every 6 hrs OR nkop PROMETHAZINE HCL 27708123975 Adali E FOUZIA Best PROMETHAZINE HCL 25 MG/ML SOLN PRN nausea/vomiting Give 1 ml IM every 6 hours x 96 hours NON-KOP PROMETHAZINE HCL 47691781968 Adali Bryant FOUZIA Best PROMETHAZINE HCL 25 MG SUPP PRN nausea vomiting per rectum.take 1 suppository every 6 hrs OR nkop PROMETHAZINE HCL 85640733735 Adali Bryant FOUZIA Best ATIVAN 1 MG TABS PRN Take 2 tablets po q 1 hr for agitation ,tremors,tachycardia(pulserate>=120) or diastolic bp>100mmHg nkop LORAZEPAM 90741603358 Adali E FOUZIA Best ATIVAN 2 MG/ML SOLN PRN 2 mg IM Q1 hours agitation, tremors, tachycardia (pulse rate greater than or equal to 120), or Diastolic blood pressure greater than 100mmHg X 4 days (96 hours) OR LORAZEPAM 73745198608 Adali E FOUZIA Best CHLORDIAZEPOXIDE HCL 25 MG CAPS Take 2 caps by mouth QID X 8 doses THEN 2 caps by mouth TID X 6 doses THEN 2 caps by mouth BID X 4 doses THEN 2 caps by mouth QD X 2 doses. NON-KOP CHLORDIAZEPOXIDE HCL 58876553615 Adali E FOUZIA Best THIAMINE HCL 100 MG TABS Take 1 tablet by mouth daily x 3 days NON-KOP THIAMINE HCL 04805832016 Adali E FOUZIA Best LISINOPRIL 10 MG TABS Take one tablet by mouth daily x 365 days nkop LISINOPRIL 90279948638 Adali E FOUZIA Best Medications Administered No information available. Allergies, Adverse Reactions, Alerts No information available.
--- OUTSIDE RECORDS SUMMARY | 2018-12-20 04:33 | XMS REPORT | Encounter Summary ---
Author Author FOUZIA Best Ifeoma E Organization [facility] Address Unknown Phone Unavailable Care Team Providers Care Pole Tester Name Role Phone FOUZIA Best Ifeoma E Unavailable Conditions or Problems No information available. Medications Medication Instructions Start Date Stop Date Generic Name [facility] Provider LEVETIRACETAM 500 MG TABS Take 1 tablet by mouth twice daily x 30 days. nkop LEVETIRACETAM [id number] Adali Best NP THIAMINE HCL 100 MG/ML SOLN If not able to tolerate tabs, Give 100 mg IM daily x 3 days NON-KOP THIAMINE HCL 29800092423 Adali Bryant Best NP METFORMIN HCL 500 MG TABS Take 1 tablet by mouth twice daily x 365 days. nKOP METFORMIN HCL 71692796281 Adali Bryant Best NP BACTRIM DS 800-160 MG TABS Take 1 tablet by mouth twice daily x 10 days. n KOP SULFAMETHOXAZOLE-TRIMETHOPRIM 18838806276 Adali Best NP PROAIR HFA AERS take 2 puffs by mouth BID/PRN asthma for 60 days nkop ALBUTEROL SULFATE AERS 68384021021 Adali Bryant Best NP LEVOTHYROXINE SODIUM 100 MCG TABS Take 1 tablet by mouth every morning x 90 days. n KOP LEVOTHYROXINE SODIUM 88127823353 Adali Bryant Best NP ADVAIR DISKUS 250-50 MCG/DOSE AEPB 1 puff inhaled twice daily x 30 days NKOP FLUTICASONE-SALMETEROL 79849348780 Adali RamiresFOUZIA marlow DEPAKOTE ER 500 MG [id number] one tablet by mouth one times QPM 365 days NKOP DIVALPROEX SODIUM 00513375836 Adali BestFOUZIA SINGULAIR 10 MG TABS Take 1 tablet by mouth in the evening x 30 days. NKOP MONTELUKAST SODIUM 90846148116 Adali RamiresgmsusanFOUZIA TRICOR 145 MG TABS Take 1 tablet by mouth every evening x 365 days. NKOP FENOFIBRATE 90411835761 Adali RamiresgmsusanFOUZIA [id number]-5 0.2 MG/24HR PTWK Start with 6th dose of Clonidine X 1 patch nkop CLONIDINE HCL 18732094278 Adali RamachandranFOUZIA marin CLONIDINE HCL 0.2 MG TABS One tablet by mouth three times daily X 9 doses nkop CLONIDINE HCL 06111683996 Adali RamiresFOUZIA marlow IMODIUM A-D 2 MG TABS PRN Diarrhea Take 2 tablets by mouth every 8 hours X 96 hours nkop LOPERAMIDE HCL 01502244752 Adali QuirosFOUZIA gibson PROMETHAZINE HCL 25 MG TABS PRN nausea vomiting PO.take 1 tablet every 6 hrs nkop PROMETHAZINE HCL 57992654805 Adali E FOUZIA Best PROMETHAZINE HCL 25 MG SUPP PRN nausea vomiting per rectum.take 1 suppository every 6 hrs OR nkop PROMETHAZINE HCL 05780315974 Adali E FOUZIA Best PROMETHAZINE HCL 25 MG/ML SOLN PRN nausea/vomiting Give 1 ml IM every 6 hours x 96 hours NON-KOP PROMETHAZINE HCL 18654674977 Adali E FOUZIA Best PROMETHAZINE HCL 25 MG SUPP PRN nausea vomiting per rectum.take 1 suppository every 6 hrs OR nkop PROMETHAZINE HCL 96758181623 Adali E FOUZIA Best ATIVAN 1 MG TABS PRN Take 2 tablets po q 1 hr for agitation ,tremors,tachycardia(pulserate>=120) or diastolic bp>100mmHg nkop LORAZEPAM 29907625388 Adali E FOUZIA Best ATIVAN 2 MG/ML SOLN PRN 2 mg IM Q1 hours agitation, tremors, tachycardia (pulse rate greater than or equal to 120), or Diastolic blood pressure greater than 100mmHg X 4 days (96 hours) OR LORAZEPAM 46168768890 Adali E FOUZIA Best CHLORDIAZEPOXIDE HCL 25 MG CAPS Take 2 caps by mouth QID X 8 doses THEN 2 caps by mouth TID X 6 doses THEN 2 caps by mouth BID X 4 doses THEN 2 caps by mouth QD X 2 doses. NON-KOP CHLORDIAZEPOXIDE HCL 36579757486 Adali E FOUZIA Best THIAMINE HCL 100 MG TABS Take 1 tablet by mouth daily x 3 days NON-KOP THIAMINE HCL 91130523576 Adali E FOUZIA Best LISINOPRIL 10 MG TABS Take one tablet by mouth daily x 365 days nkop LISINOPRIL 54807973553 Adali E FOUZIA Best Medications Administered No information available. Allergies, Adverse Reactions, Alerts No information available.
--- OUTSIDE RECORDS SUMMARY | 2018-12-20 04:33 | XMS REPORT | Encounter Summary ---
Author Author FOZUIA Stringer, Court Cruz Organization [facility] Address Unknown Phone Unavailable Care Team Providers Care Invoicing Specialist Name Role Phone FOUZIA Best, Adali Hurtado Unavailable Conditions or Problems No information available. Medications Medication Instructions Start Date Stop Date Generic Name [facility] Provider LEVETIRACETAM 500 MG TABS Take 1 tablet by mouth twice daily x 30 days. nkop LEVETIRACETAM 41441367570 Adali Best NP THIAMINE HCL 100 MG/ML SOLN If not able to tolerate tabs, Give 100 mg IM daily x 3 days NON-KOP THIAMINE HCL 30908692149 Adali Best NP METFORMIN HCL 500 MG TABS Take 1 tablet by mouth twice daily x 365 days. nKOP METFORMIN HCL 49079054928 Adali Best NP BACTRIM DS 800-160 MG TABS Take 1 tablet by mouth twice daily x 10 days. n KOP SULFAMETHOXAZOLE-TRIMETHOPRIM 01286485353 Adali Best NP PROAIR HFA AERS take 2 puffs by mouth BID/PRN asthma for 60 days nkop ALBUTEROL SULFATE AERS 56831856845 Adali Best NP LEVOTHYROXINE SODIUM 100 MCG TABS Take 1 tablet by mouth every morning x 90 days. n KOP LEVOTHYROXINE SODIUM 46498260839 Adali Best NP ADVAIR DISKUS 250-50 MCG/DOSE AEPB 1 puff inhaled twice daily x 30 days NKOP FLUTICASONE-SALMETEROL 49131768055 Adail Evansu, HOUSE WIRER HELPER DEPAKOTE ER 500 MG [id number] one tablet by mouth one times QPM 365 days NKOP DIVALPROEX SODIUM 17391962539 Adali BestFOUZIA SINGULAIR 10 MG TABS Take 1 tablet by mouth in the evening x 30 days. NKOP MONTELUKAST SODIUM 46527716444 Adali RamiresFOUZIA marlow TRICOR 145 MG TABS Take 1 tablet by mouth every evening x 365 days. NKOP FENOFIBRATE 83380771571 Adali RamiresgmsusanFOUZIA [id number]-MTC-5 0.2 MG/24HR PTWK Start with 6th dose of Clonidine X 1 patch nkop CLONIDINE HCL 86371935546 Adali RamiresFOUZIA marlow CLONIDINE HCL 0.2 MG TABS One tablet by mouth three times daily X 9 doses nkop CLONIDINE HCL 62284909298 Adali RamiresFOUZIA marlow IMODIUM A-D 2 MG TABS PRN Diarrhea Take 2 tablets by mouth every 8 hours X 96 hours nkop LOPERAMIDE HCL 26361854564 Adali RamiresFOUZIA marlow PROMETHAZINE HCL 25 MG TABS PRN nausea vomiting PO.take 1 tablet every 6 hrs nkop PROMETHAZINE HCL 18839311848 Adali QuirosFOUZIA gibson PROMETHAZINE HCL 25 MG SUPP PRN nausea vomiting per rectum.take 1 suppository every 6 hrs OR nkop PROMETHAZINE HCL 15524747073 Adali E FOUZIA Best PROMETHAZINE HCL 25 MG/ML SOLN PRN nausea/vomiting Give 1 ml IM every 6 hours x 96 hours NON-KOP PROMETHAZINE HCL 18235189113 Adali Bryant FOUZIA Best PROMETHAZINE HCL 25 MG SUPP PRN nausea vomiting per rectum.take 1 suppository every 6 hrs OR nkop PROMETHAZINE HCL 09564985838 Adali E FOUZIA Best ATIVAN 1 MG TABS PRN Take 2 tablets po q 1 hr for agitation ,tremors,tachycardia(pulserate>=120) or diastolic bp>100mmHg nkop LORAZEPAM 33811569350 Adali E FOUZIA Best ATIVAN 2 MG/ML SOLN PRN 2 mg IM Q1 hours agitation, tremors, tachycardia (pulse rate greater than or equal to 120), or Diastolic blood pressure greater than 100mmHg X 4 days (96 hours) OR LORAZEPAM 62466102037 Adali E FOUZIA Best CHLORDIAZEPOXIDE HCL 25 MG CAPS Take 2 caps by mouth QID X 8 doses THEN 2 caps by mouth TID X 6 doses THEN 2 caps by mouth BID X 4 doses THEN 2 caps by mouth QD X 2 doses. NON-KOP CHLORDIAZEPOXIDE HCL 28166299323 Adali E FOUZIA Best THIAMINE HCL 100 MG TABS Take 1 tablet by mouth daily x 3 days NON-KOP THIAMINE HCL 27258069493 Adali E FOUZIA Best LISINOPRIL 10 MG TABS Take one tablet by mouth daily x 365 days nkop LISINOPRIL [id number] Adali E FOUZIA Best Medications Administered No information available. Allergies, Adverse Reactions, Alerts No information available.
--- OUTSIDE RECORDS SUMMARY | 2018-12-20 04:33 | XMS REPORT | Encounter Summary ---
Author [facility] Address Unknown Phone Unavailable Care Team Providers Care Charge Entry Clerk Name Role Phone FOUZIA Best, Adali Hurtado Unavailable Conditions or Problems No information available. Medications Medication Instructions Start Date Stop Date Generic Name [facility] Provider LEVETIRACETAM 500 MG TABS Take 1 tablet by mouth twice daily x 30 days. nkop LEVETIRACETAM 96693914086 Adali Best NP THIAMINE HCL 100 MG/ML SOLN If not able to tolerate tabs, Give 100 mg IM daily x 3 days NON-KOP THIAMINE HCL 05792555137 Adali Bryant Best NP METFORMIN HCL 500 MG TABS Take 1 tablet by mouth twice daily x 365 days. nKOP METFORMIN HCL 65223887066 Adali Bryant Best NP BACTRIM DS 800-160 MG TABS Take 1 tablet by mouth twice daily x 10 days. n KOP SULFAMETHOXAZOLE-TRIMETHOPRIM 63207164652 Adali Best NP PROAIR HFA AERS take 2 puffs by mouth BID/PRN asthma for 60 days nkop ALBUTEROL SULFATE AERS 67176621341 Adali Bryant Best NP LEVOTHYROXINE SODIUM 100 MCG TABS Take 1 tablet by mouth every morning x 90 days. n KOP LEVOTHYROXINE SODIUM 04221178160 Adali Bryant Best NP ADVAIR DISKUS 250-50 MCG/DOSE AEPB 1 puff inhaled twice daily x 30 days NKOP FLUTICASONE-SALMETEROL 04670387379 Adali RamiresFOUZIA marlow DEPAKOTE ER 500 MG [id number] one tablet by mouth one times QPM 365 days NKOP DIVALPROEX SODIUM 13390268054 Adali BestFOUZIA SINGULAIR 10 MG TABS Take 1 tablet by mouth in the evening x 30 days. NKOP MONTELUKAST SODIUM 82473830257 Adali RamiresgmsusanFOUZIA TRICOR 145 MG TABS Take 1 tablet by mouth every evening x 365 days. NKOP FENOFIBRATE 26814994153 Adali RamiresgmsusanFOUZIA [id number] 0.2 MG/24HR PTWK Start with 6th dose of Clonidine X 1 patch nkop CLONIDINE HCL 19780295131 Adali RamachandranFOUZIA marin CLONIDINE HCL 0.2 MG TABS One tablet by mouth three times daily X 9 doses nkop CLONIDINE HCL 53378624932 Adali RamiresFOUZIA marlow IMODIUM A-D 2 MG TABS PRN Diarrhea Take 2 tablets by mouth every 8 hours X 96 hours nkop LOPERAMIDE HCL 56175149183 Adali QuirosFOUZIA gibson PROMETHAZINE HCL 25 MG TABS PRN nausea vomiting PO.take 1 tablet every 6 hrs nkop PROMETHAZINE HCL 78610963998 Adali E FOUZIA Best PROMETHAZINE HCL 25 MG SUPP PRN nausea vomiting per rectum.take 1 suppository every 6 hrs OR nkop PROMETHAZINE HCL 88081177352 Adali E FOUZIA Best PROMETHAZINE HCL 25 MG/ML SOLN PRN nausea/vomiting Give 1 ml IM every 6 hours x 96 hours NON-KOP PROMETHAZINE HCL 19982204401 Adali E FOUZIA Best PROMETHAZINE HCL 25 MG SUPP PRN nausea vomiting per rectum.take 1 suppository every 6 hrs OR nkop PROMETHAZINE HCL 68678632803 Adali E FOUZIA Best ATIVAN 1 MG TABS PRN Take 2 tablets po q 1 hr for agitation ,tremors,tachycardia(pulserate>=120) or diastolic bp>100mmHg nkop LORAZEPAM 67967621788 Adali E FOUZIA Best ATIVAN 2 MG/ML SOLN PRN 2 mg IM Q1 hours agitation, tremors, tachycardia (pulse rate greater than or equal to 120), or Diastolic blood pressure greater than 100mmHg X 4 days (96 hours) OR LORAZEPAM 32154696582 Adali E FOUZIA Best CHLORDIAZEPOXIDE HCL 25 MG CAPS Take 2 caps by mouth QID X 8 doses THEN 2 caps by mouth TID X 6 doses THEN 2 caps by mouth BID X 4 doses THEN 2 caps by mouth QD X 2 doses. NON-KOP CHLORDIAZEPOXIDE HCL 56098857972 Adali E FOUZIA Best THIAMINE HCL 100 MG TABS Take 1 tablet by mouth daily x 3 days NON-KOP THIAMINE HCL 99656905922 Adali E FOUZIA Best LISINOPRIL 10 MG TABS Take one tablet by mouth daily x 365 days nkop LISINOPRIL 12505930072 Adali E FOUZIA Best Medications Administered No information available. Allergies, Adverse Reactions, Alerts No information available.
--- OUTSIDE RECORDS SUMMARY | 2018-12-20 04:33 | XMS REPORT | Encounter Summary ---
Author Author KAROLINA Saucedo, Qwite Organization [facility] Address Unknown Phone Unavailable Care Team Providers Care Chronometer Assembler And Adjuster Name Role Phone FOUZIA Best, Adali Hurtado Unavailable Conditions or Problems No information available. Medications Medication Instructions Start Date Stop Date Generic Name [facility] Provider LEVETIRACETAM 500 MG TABS Take 1 tablet by mouth twice daily x 30 days. nkop LEVETIRACETAM 26386319904 Adali Best NP THIAMINE HCL 100 MG/ML SOLN If not able to tolerate tabs, Give 100 mg IM daily x 3 days NON-KOP THIAMINE HCL 09678671216 Adali Bryant Best NP METFORMIN HCL 500 MG TABS Take 1 tablet by mouth twice daily x 365 days. nKOP METFORMIN HCL 13625323705 Adali Bryant Best NP BACTRIM DS 800-160 MG TABS Take 1 tablet by mouth twice daily x 10 days. n KOP SULFAMETHOXAZOLE-TRIMETHOPRIM 28956202336 Adali Best NP PROAIR HFA AERS take 2 puffs by mouth BID/PRN asthma for 60 days nkop ALBUTEROL SULFATE AERS 42008708450 Adali Bryant Best NP LEVOTHYROXINE SODIUM 100 MCG TABS Take 1 tablet by mouth every morning x 90 days. n KOP LEVOTHYROXINE SODIUM 07236240419 Adali Best NP ADVAIR DISKUS 250-50 MCG/DOSE AEPB 1 puff inhaled twice daily x 30 days NKOP FLUTICASONE-SALMETEROL 26249501679 Adali RamiresFOUZIA marlow DEPAKOTE ER 500 MG [id number] one tablet by mouth one times QPM 365 days NKOP DIVALPROEX SODIUM 43856722066 Adali BestFOUZIA SINGULAIR 10 MG TABS Take 1 tablet by mouth in the evening x 30 days. NKOP MONTELUKAST SODIUM 06146115082 Adali RamiresgmsusanFOUZIA TRICOR 145 MG TABS Take 1 tablet by mouth every evening x 365 days. NKOP FENOFIBRATE 53575181188 Adali RamiresgmsusanFOUZIA [id number]-4 0.2 MG/24HR PTWK Start with 6th dose of Clonidine X 1 patch nkop CLONIDINE HCL 64719696245 Adali RamiresFOUZIA marlow CLONIDINE HCL 0.2 MG TABS One tablet by mouth three times daily X 9 doses nkop CLONIDINE HCL 25820575143 Adali RamiresFOUZIA marlow IMODIUM A-D 2 MG TABS PRN Diarrhea Take 2 tablets by mouth every 8 hours X 96 hours nkop LOPERAMIDE HCL 63356876408 Adali RamiresFOUZIA marlow PROMETHAZINE HCL 25 MG TABS PRN nausea vomiting PO.take 1 tablet every 6 hrs nkop PROMETHAZINE HCL 67355606200 Adali Hurtado FOUZIA Best PROMETHAZINE HCL 25 MG SUPP PRN nausea vomiting per rectum.take 1 suppository every 6 hrs OR nkop PROMETHAZINE HCL 09155221058 Adali E FOUZIA Best PROMETHAZINE HCL 25 MG/ML SOLN PRN nausea/vomiting Give 1 ml IM every 6 hours x 96 hours NON-KOP PROMETHAZINE HCL 96768606640 Adali Bryant FOUZIA Best PROMETHAZINE HCL 25 MG SUPP PRN nausea vomiting per rectum.take 1 suppository every 6 hrs OR nkop PROMETHAZINE HCL 58486759620 Adali Bryant FOUZIA Best ATIVAN 1 MG TABS PRN Take 2 tablets po q 1 hr for agitation ,tremors,tachycardia(pulserate>=120) or diastolic bp>100mmHg nkop LORAZEPAM 15127217624 Adali E FOUZIA Best ATIVAN 2 MG/ML SOLN PRN 2 mg IM Q1 hours agitation, tremors, tachycardia (pulse rate greater than or equal to 120), or Diastolic blood pressure greater than 100mmHg X 4 days (96 hours) OR LORAZEPAM 07412711583 Adali E FOUZIA Best CHLORDIAZEPOXIDE HCL 25 MG CAPS Take 2 caps by mouth QID X 8 doses THEN 2 caps by mouth TID X 6 doses THEN 2 caps by mouth BID X 4 doses THEN 2 caps by mouth QD X 2 doses. NON-KOP CHLORDIAZEPOXIDE HCL 06601488249 Adali E FOUZIA Best THIAMINE HCL 100 MG TABS Take 1 tablet by mouth daily x 3 days NON-KOP THIAMINE HCL 15129494518 Adali E FOUZIA Best LISINOPRIL 10 MG TABS Take one tablet by mouth daily x 365 days nkop LISINOPRIL 28045079431 Adali E FOUZIA Best Medications Administered No information available. Allergies, Adverse Reactions, Alerts No information available.
--- OUTSIDE RECORDS SUMMARY | 2018-12-20 04:34 | XMS REPORT | Encounter Summary ---
Author Author ANNA Ordoñez Oluchi B Organization [facility] Address Unknown Phone Unavailable Care Team Providers Care Olive Pitter Name Role Phone MD Dee, William Silver Unavailable Conditions or Problems No information available. Medications Medication Instructions Start Date Stop Date Generic Name [facility] Provider LISINOPRIL 20 MG TABS 1 tab po daily x 30 days non kop LISINOPRIL 83609363687 William Price MD KEPPRA 500 MG TABS Take 1 tablet by mouth twice daily x 30 days. non kop LEVETIRACETAM 51197310057 William Price MD LEVOTHYROXINE SODIUM 25 MCG TABS 1 tab po daily x 30 days non kop LEVOTHYROXINE SODIUM 88518360907 William Price MD [id number] 0.2 MG/24HR PTWK Start with 6th dose of Clonidine X 1 patch CLONIDINE HCL 43272569879 William Price MD CLONIDINE HCL 0.2 MG TABS One tablet by mouth three times daily X 9 doses CLONIDINE HCL 00179082139 William Price MD IMODIUM A-D 2 MG TABS PRN Diarrhea Take 2 tablets by mouth every 8 hours X 96 hours LOPERAMIDE HCL 05567375757 William Price MD PROMETHAZINE HCL 25 MG TABS PRN nausea vomiting PO.take 1 tablet every 6 hrs PROMETHAZINE HCL 03315077206 William Price MD PROMETHAZINE HCL 25 MG SUPP PRN nausea vomiting per rectum.take 1 suppository every 6 hrs OR PROMETHAZINE HCL 69901962833 William Price MD PROMETHAZINE HCL 25 MG/ML SOLN PRN nausea/vomiting Give 1 ml IM every 6 hours x 96 hours NON-KOP PROMETHAZINE HCL 21696459328 William Price MD ATIVAN 1 MG TABS PRN Take 2 tablets po q 1 hr for agitation ,tremors,tachycardia(pulserate>=120) or diastolic bp>100mmHg LORAZEPAM 66285767362 William Price MD ATIVAN 2 MG/ML SOLN PRN 2 mg IM Q1 hours agitation, tremors, tachycardia (pulse rate greater than or equal to 120), or Diastolic blood pressure greater than 100mmHg X 4 days (96 hours) OR LORAZEPAM 47230986331 William Price MD CHLORDIAZEPOXIDE HCL 25 MG CAPS Take 2 caps by mouth QID X 8 doses THEN 2 caps by mouth TID X 6 doses THEN 2 caps by mouth BID X 4 doses THEN 2 caps by mouth QD X 2 doses. NON-KOP CHLORDIAZEPOXIDE HCL 16653448563 William Price MD THIAMINE HCL 100 MG TABS Take 1 tablet by mouth daily x 3 days NON-KOP THIAMINE HCL 35203725904 William Price MD THIAMINE HCL 100 MG/ML SOLN If not able to tolerate tabs, Give 100 mg IM daily x 3 days NON-KOP THIAMINE HCL 46472808542 William Price MD METFORMIN HCL 500 MG TABS 1 tab po bid x 30 days non kop METFORMIN HCL 90050838586 William Price MD Medications Administered No information available. Allergies, Adverse Reactions, Alerts No information available.
--- OUTSIDE RECORDS SUMMARY | 2018-12-20 04:34 | XMS REPORT | Encounter Summary ---
Author Author ANNA Hemphill Jacqueline E Organization [facility] Address Unknown Phone Unavailable Care Team Providers Care Oven Worker Name Role Phone FOUZIA Best, Adali E Unavailable Conditions or Problems No information available. Medications Medication Instructions Start Date Stop Date Generic Name [facility] Provider METFORMIN HCL 500 MG TABS Take 1 tablet by mouth twice daily x 365 days. nKOP METFORMIN HCL 84564819922 Adali Hurtado FOUZIA Best TRIPLE ANTIBIOTIC 3.5-400-5000 OINT Apply externally daily x 30 days.nkop [id number] 56162246117 Adali E FOUZIA Best LEVOTHYROXINE SODIUM 25 MCG TABS Take 1 tablet by mouth every morning x 90 days. nKOP LEVOTHYROXINE SODIUM 45564304964 Adali Hurtado FOUIZA Best KEPPRA 500 MG TABS Take 1 tablet by mouth twice daily x 30 days. nkop LEVETIRACETAM 52132843649 Adali E FOUZIA Best ATIVAN 1 MG TABS PRN Take 2 tablets po q 1 hr for agitation ,tremors,tachycardia(pulserate>=120) or diastolic bp>100mmHgnkop LORAZEPAM 17740760000 Adali E FOUZIA Best [id number]-JML-1 0.2 MG/24HR PTWK Start with 6th dose of Clonidine X 1 patch nkop CLONIDINE HCL 76155659474 Adali E FOUZIA Best CLONIDINE HCL 0.2 MG TABS One tablet by mouth three times daily X 9 doses nkop CLONIDINE HCL 40282218822 Adali Hurtado FOUZIA Best IMODIUM A-D 2 MG TABS PRN Diarrhea Take 2 tablets by mouth every 8 hours X 96 hours nkop LOPERAMIDE HCL 29950354817 Adali Hurtado FOUZIA Best PROMETHAZINE HCL 25 MG TABS PRN nausea vomiting PO.take 1 tablet every 6 hrs nkop PROMETHAZINE HCL 47365439901 Adali Hurtado FOUZIA Best PROMETHAZINE HCL 25 MG SUPP PRN nausea vomiting per rectum.take 1 suppository every 6 hrs OR nkop PROMETHAZINE HCL 27644731303 Adali Hurtado FOUZIA Best PROMETHAZINE HCL 25 MG/ML SOLN PRN nausea/vomiting Give 1 ml IM every 6 hours x 96 hours NON-KOP PROMETHAZINE HCL 46785294884 Adali Hurtado FOUZIA Best IBUPROFEN 400 MG TABS Take 1 tablet twice a day for 30 days.nkop IBUPROFEN 47781700727 Adali Hurtado FOUZIA Best PROAIR HFA AERS take 2 puffs by mouth BID/PRN asthma for 60 days nkop ALBUTEROL SULFATE AERS 12162639591 Adali Hurtado FOUZIA Best ADVAIR DISKUS 250-50 MCG/DOSE AEPB 1 puff inhaled twice daily x 30 days nkop FLUTICASONE-SALMETEROL 01196755058 Adali Hurtado FOUZIA Best BACTRIM DS 800-160 MG TABS Take 1 tablet by mouth twice daily x 10 days. nKOP SULFAMETHOXAZOLE-TRIMETHOPRIM 41945747991 Adali Hurtado FOUZIA Best LISINOPRIL 20 MG TABS Take one tablet by mouth daily x 365 days.n kop LISINOPRIL 48432237572 Adali E FOUZIA Best Medications Administered No information available. Allergies, Adverse Reactions, Alerts No information available.
--- OUTSIDE RECORDS SUMMARY | 2018-12-20 04:34 | XMS REPORT | Encounter Summary ---
Author Author ANNA Murillo, Yuliana Bond [facility] Address Unknown Phone Unavailable Care Team Providers Care Parking Manager Name Role Phone MD Dee, William Silver Unavailable Conditions or Problems No information available. Medications Medication Instructions Start Date Stop Date Generic Name [facility] Provider LISINOPRIL 20 MG TABS 1 tab po daily x 30 days non kop LISINOPRIL [id number] William Price MD KEPPRA 500 MG TABS Take 1 tablet by mouth twice daily x 30 days. non kop LEVETIRACETAM [id number] William Price MD LEVOTHYROXINE SODIUM 25 MCG TABS 1 tab po daily x 30 days non kop LEVOTHYROXINE SODIUM 52213729720 William Price MD [id number]-[id number]-1 0.2 MG/24HR PTWK Start with 6th dose of Clonidine X 1 patch CLONIDINE HCL [id number] William Price MD CLONIDINE HCL 0.2 MG TABS One tablet by mouth three times daily X 9 doses CLONIDINE HCL [id number] William Price MD IMODIUM A-D 2 MG TABS PRN Diarrhea Take 2 tablets by mouth every 8 hours X 96 hours LOPERAMIDE HCL [id number] William Price MD PROMETHAZINE HCL 25 MG TABS PRN nausea vomiting PO.take 1 tablet every 6 hrs PROMETHAZINE HCL 25263045493 William Price MD PROMETHAZINE HCL 25 MG SUPP PRN nausea vomiting per rectum.take 1 suppository every 6 hrs OR PROMETHAZINE HCL 29871208056 William Price MD PROMETHAZINE HCL 25 MG/ML SOLN PRN nausea/vomiting Give 1 ml IM every 6 hours x 96 hours NON-KOP PROMETHAZINE HCL [id number] William Price MD ATIVAN 1 MG TABS PRN Take 2 tablets po q 1 hr for agitation ,tremors,tachycardia(pulserate>=120) or diastolic bp>100mmHg LORAZEPAM [id number] William Price MD ATIVAN 2 MG/ML SOLN PRN 2 mg IM Q1 hours agitation, tremors, tachycardia (pulse rate greater than or equal to 120), or Diastolic blood pressure greater than 100mmHg X 4 days (96 hours) OR LORAZEPAM [id number] William Price MD CHLORDIAZEPOXIDE HCL 25 MG CAPS Take 2 caps by mouth QID X 8 doses THEN 2 caps by mouth TID X 6 doses THEN 2 caps by mouth BID X 4 doses THEN 2 caps by mouth QD X 2 doses. NON-KOP CHLORDIAZEPOXIDE HCL 18127818825 William Price MD THIAMINE HCL 100 MG TABS Take 1 tablet by mouth daily x 3 days NON-KOP THIAMINE HCL [id number] William Price MD THIAMINE HCL 100 MG/ML SOLN If not able to tolerate tabs, Give 100 mg IM daily x 3 days NON-KOP THIAMINE HCL 13041121242 William Price MD METFORMIN HCL 500 MG TABS 1 tab po bid x 30 days non kop METFORMIN HCL 74221720166 William Price MD Medications Administered No information available. Allergies, Adverse Reactions, Alerts No information available.
--- OUTSIDE RECORDS SUMMARY | 2018-12-20 04:34 | XMS REPORT | Encounter Summary ---
Author Author ANNA Ordoñez Oluchi B Organization [facility] Address Unknown Phone Unavailable Care Team Providers Care Rfp Writer Name Role Phone MD Dee, William Silver Unavailable Conditions or Problems No information available. Medications Medication Instructions Start Date Stop Date Generic Name [facility] Provider LISINOPRIL 20 MG TABS 1 tab po daily x 30 days non kop LISINOPRIL [id number] William Price MD KEPPRA 500 MG TABS Take 1 tablet by mouth twice daily x 30 days. non kop LEVETIRACETAM 24889854416 William Price MD LEVOTHYROXINE SODIUM 25 MCG TABS 1 tab po daily x 30 days non kop LEVOTHYROXINE SODIUM 21904296979 William Price MD [id number]-3 0.2 MG/24HR PTWK Start with 6th dose of Clonidine X 1 patch CLONIDINE HCL [id number] William Price MD CLONIDINE HCL 0.2 MG TABS One tablet by mouth three times daily X 9 doses CLONIDINE HCL 89774144057 William Price MD IMODIUM A-D 2 MG TABS PRN Diarrhea Take 2 tablets by mouth every 8 hours X 96 hours LOPERAMIDE HCL [id number] William Price MD PROMETHAZINE HCL 25 MG TABS PRN nausea vomiting PO.take 1 tablet every 6 hrs PROMETHAZINE HCL [id number] William Price MD PROMETHAZINE HCL 25 MG SUPP PRN nausea vomiting per rectum.take 1 suppository every 6 hrs OR PROMETHAZINE HCL [id number] William Price MD PROMETHAZINE HCL 25 MG/ML SOLN PRN nausea/vomiting Give 1 ml IM every 6 hours x 96 hours NON-KOP PROMETHAZINE HCL 84106109036 William Price MD ATIVAN 1 MG TABS PRN Take 2 tablets po q 1 hr for agitation ,tremors,tachycardia(pulserate>=120) or diastolic bp>100mmHg LORAZEPAM [id number] William Price MD ATIVAN 2 MG/ML SOLN PRN 2 mg IM Q1 hours agitation, tremors, tachycardia (pulse rate greater than or equal to 120), or Diastolic blood pressure greater than 100mmHg X 4 days (96 hours) OR LORAZEPAM [id number] William Price MD CHLORDIAZEPOXIDE HCL 25 MG CAPS Take 2 caps by mouth QID X 8 doses THEN 2 caps by mouth TID X 6 doses THEN 2 caps by mouth BID X 4 doses THEN 2 caps by mouth QD X 2 doses. NON-KOP CHLORDIAZEPOXIDE HCL [id number] William Price MD THIAMINE HCL 100 MG TABS Take 1 tablet by mouth daily x 3 days NON-KOP THIAMINE HCL 16500764086 William Price MD THIAMINE HCL 100 MG/ML SOLN If not able to tolerate tabs, Give 100 mg IM daily x 3 days NON-KOP THIAMINE HCL [id number] William Price MD METFORMIN HCL 500 MG TABS 1 tab po bid x 30 days non kop METFORMIN HCL [id number] William Price MD Medications Administered No information available. Allergies, Adverse Reactions, Alerts No information available.
--- OUTSIDE RECORDS SUMMARY | 2018-12-20 04:34 | XMS REPORT | Encounter Summary ---
Author Author ANNA Ordoñez Oluchi B Organization [facility] Address Unknown Phone Unavailable Care Team Providers Care Cardiology Consultants Name Role Phone MD Dee, William Silver Unavailable Conditions or Problems No information available. Medications Medication Instructions Start Date Stop Date Generic Name [facility] Provider LISINOPRIL 20 MG TABS 1 tab po daily x 30 days non kop LISINOPRIL [id number] William Price MD KEPPRA 500 MG TABS Take 1 tablet by mouth twice daily x 30 days. non kop LEVETIRACETAM [id number] William Price MD LEVOTHYROXINE SODIUM 25 MCG TABS 1 tab po daily x 30 days non kop LEVOTHYROXINE SODIUM 46901886154 William Price MD [id number] 0.2 MG/24HR PTWK Start with 6th dose of Clonidine X 1 patch CLONIDINE HCL [id number] William Price MD CLONIDINE HCL 0.2 MG TABS One tablet by mouth three times daily X 9 doses CLONIDINE HCL [id number] William Price MD IMODIUM A-D 2 MG TABS PRN Diarrhea Take 2 tablets by mouth every 8 hours X 96 hours LOPERAMIDE HCL [id number] William Price MD PROMETHAZINE HCL 25 MG TABS PRN nausea vomiting PO.take 1 tablet every 6 hrs PROMETHAZINE HCL [id number] William Price MD PROMETHAZINE HCL 25 MG SUPP PRN nausea vomiting per rectum.take 1 suppository every 6 hrs OR PROMETHAZINE HCL [id number] William Price MD PROMETHAZINE HCL 25 MG/ML SOLN PRN nausea/vomiting Give 1 ml IM every 6 hours x 96 hours NON-KOP PROMETHAZINE HCL 34845551102 William Price MD ATIVAN 1 MG TABS PRN Take 2 tablets po q 1 hr for agitation ,tremors,tachycardia(pulserate>=120) or diastolic bp>100mmHg LORAZEPAM [id number] William Price MD ATIVAN 2 MG/ML SOLN PRN 2 mg IM Q1 hours agitation, tremors, tachycardia (pulse rate greater than or equal to 120), or Diastolic blood pressure greater than 100mmHg X 4 days (96 hours) OR LORAZEPAM [id number] William Price MD CHLORDIAZEPOXIDE HCL 25 MG CAPS Take 2 caps by mouth QID X 8 doses THEN 2 caps by mouth TID X 6 doses THEN 2 caps by mouth BID X 4 doses THEN 2 caps by mouth QD X 2 doses. NON-KOP CHLORDIAZEPOXIDE HCL [id number] William Price MD THIAMINE HCL 100 MG TABS Take 1 tablet by mouth daily x 3 days NON-KOP THIAMINE HCL [id number] William Price MD THIAMINE HCL 100 MG/ML SOLN If not able to tolerate tabs, Give 100 mg IM daily x 3 days NON-KOP THIAMINE HCL [id number] William Price MD METFORMIN HCL 500 MG TABS 1 tab po bid x 30 days non kop METFORMIN HCL [id number] William Price MD Medications Administered No information available. Allergies, Adverse Reactions, Alerts No information available.
--- OUTSIDE RECORDS SUMMARY | 2018-12-20 04:34 | XMS REPORT | Encounter Summary ---
Author Author ANNA Mancini Alana Organization [facility] Address [address] [place] [address] Phone Care Team Providers Care Hospital Security Officer Name Role Phone MD Dee, William Silver Unavailable Conditions or Problems No information available. Medications Medication Instructions Start Date Stop Date Generic Name [facility] Provider LISINOPRIL 20 MG TABS 1 tab po daily x 30 days non kop LISINOPRIL [id number] William Price MD KEPPRA 500 MG TABS Take 1 tablet by mouth twice daily x 30 days. non kop LEVETIRACETAM [id number] William Price MD LEVOTHYROXINE SODIUM 25 MCG TABS 1 tab po daily x 30 days non kop LEVOTHYROXINE SODIUM [id number] William Price MD [id number]-4 0.2 MG/24HR PTWK Start with 6th dose of Clonidine X 1 patch CLONIDINE HCL [id number] William Price MD CLONIDINE HCL 0.2 MG TABS One tablet by mouth three times daily X 9 doses CLONIDINE HCL [id number] William Price MD IMODIUM A-D 2 MG TABS PRN Diarrhea Take 2 tablets by mouth every 8 hours X 96 hours LOPERAMIDE HCL [id number] William Price MD PROMETHAZINE HCL 25 MG TABS PRN nausea vomiting PO.take 1 tablet every 6 hrs PROMETHAZINE HCL [id number] William Price MD PROMETHAZINE HCL 25 MG SUPP PRN nausea vomiting per rectum.take 1 suppository every 6 hrs OR PROMETHAZINE HCL [id number] William Price MD PROMETHAZINE HCL 25 MG/ML SOLN PRN nausea/vomiting Give 1 ml IM every 6 hours x 96 hours NON-KOP PROMETHAZINE HCL [id number] William Price MD ATIVAN 1 MG TABS PRN Take 2 tablets po q 1 hr for agitation ,tremors,tachycardia(pulserate>=120) or diastolic bp>100mmHg LORAZEPAM [id number] William Price MD ATIVAN 2 MG/ML SOLN PRN 2 mg IM Q1 hours agitation, tremors, tachycardia (pulse rate greater than or equal to 120), or Diastolic blood pressure greater than 100mmHg X 4 days (96 hours) OR LORAZEPAM [id number] William Price MD CHLORDIAZEPOXIDE HCL 25 MG CAPS Take 2 caps by mouth QID X 8 doses THEN 2 caps by mouth TID X 6 doses THEN 2 caps by mouth BID X 4 doses THEN 2 caps by mouth QD X 2 doses. NON-KOP CHLORDIAZEPOXIDE HCL [id number] William Price MD THIAMINE HCL 100 MG TABS Take 1 tablet by mouth daily x 3 days NON-KOP THIAMINE HCL [id number] William Price MD THIAMINE HCL 100 MG/ML SOLN If not able to tolerate tabs, Give 100 mg IM daily x 3 days NON-KOP THIAMINE HCL [id number] William Price MD METFORMIN HCL 500 MG TABS 1 tab po bid x 30 days non kop METFORMIN HCL [id number] William Price MD Medications Administered No information available. Allergies, Adverse Reactions, Alerts No information available.
--- OUTSIDE RECORDS SUMMARY | 2018-12-20 04:34 | XMS REPORT | Encounter Summary ---
Author Author MD Dee, William Silver Organization [facility] Address Unknown Phone Unavailable Care Team Providers Care Retail Administrative Assistant Name Role Phone MD Price Mir Kareem Unavailable Conditions or Problems No information available. Medications Medication Instructions Start Date Stop Date Generic Name [facility] Provider LISINOPRIL 20 MG TABS 1 tab po daily x 30 days non kop LISINOPRIL [id number] William Price MD KEPPRA 500 MG TABS Take 1 tablet by mouth twice daily x 30 days. non kop LEVETIRACETAM [id number] William Price MD LEVOTHYROXINE SODIUM 25 MCG TABS 1 tab po daily x 30 days non kop LEVOTHYROXINE SODIUM 11982434899 William Price MD [id number] 0.2 MG/24HR PTWK Start with 6th dose of Clonidine X 1 patch CLONIDINE HCL 50892717590 William Price MD CLONIDINE HCL 0.2 MG TABS One tablet by mouth three times daily X 9 doses CLONIDINE HCL [id number] William Price MD IMODIUM A-D 2 MG TABS PRN Diarrhea Take 2 tablets by mouth every 8 hours X 96 hours LOPERAMIDE HCL [id number] William Price MD PROMETHAZINE HCL 25 MG TABS PRN nausea vomiting PO.take 1 tablet every 6 hrs PROMETHAZINE HCL [id number] William Price MD PROMETHAZINE HCL 25 MG SUPP PRN nausea vomiting per rectum.take 1 suppository every 6 hrs OR PROMETHAZINE HCL [id number] William Price MD PROMETHAZINE HCL 25 MG/ML SOLN PRN nausea/vomiting Give 1 ml IM every 6 hours x 96 hours NON-KOP PROMETHAZINE HCL [id number] William Price MD ATIVAN 1 MG TABS PRN Take 2 tablets po q 1 hr for agitation ,tremors,tachycardia(pulserate>=120) or diastolic bp>100mmHg LORAZEPAM [id number] William Price MD ATIVAN 2 MG/ML SOLN PRN 2 mg IM Q1 hours agitation, tremors, tachycardia (pulse rate greater than or equal to 120), or Diastolic blood pressure greater than 100mmHg X 4 days (96 hours) OR LORAZEPAM [id number] William Price MD CHLORDIAZEPOXIDE HCL 25 MG CAPS Take 2 caps by mouth QID X 8 doses THEN 2 caps by mouth TID X 6 doses THEN 2 caps by mouth BID X 4 doses THEN 2 caps by mouth QD X 2 doses. NON-KOP CHLORDIAZEPOXIDE HCL [id number] William Price MD THIAMINE HCL 100 MG TABS Take 1 tablet by mouth daily x 3 days NON-KOP THIAMINE HCL [id number] William Price MD THIAMINE HCL 100 MG/ML SOLN If not able to tolerate tabs, Give 100 mg IM daily x 3 days NON-KOP THIAMINE HCL [id number] William Price MD METFORMIN HCL 500 MG TABS 1 tab po bid x 30 days non kop METFORMIN HCL 50452720687 William Price MD Medications Administered No information available. Allergies, Adverse Reactions, Alerts No information available.
--- OUTSIDE RECORDS SUMMARY | 2018-12-20 04:34 | XMS REPORT | Encounter Summary ---
Author Author ANNA Murillo, Yuliana Bond [facility] Address Unknown Phone Unavailable Care Team Providers Care Secretary Receptionist Name Role Phone MD Dee, William Silver Unavailable Conditions or Problems No information available. Medications Medication Instructions Start Date Stop Date Generic Name [facility] Provider LISINOPRIL 20 MG TABS 1 tab po daily x 30 days non kop LISINOPRIL [id number] William Price MD KEPPRA 500 MG TABS Take 1 tablet by mouth twice daily x 30 days. non kop LEVETIRACETAM [id number] William Price MD LEVOTHYROXINE SODIUM 25 MCG TABS 1 tab po daily x 30 days non kop LEVOTHYROXINE SODIUM 88543039625 William Price MD [id number]-3 0.2 MG/24HR PTWK Start with 6th dose of Clonidine X 1 patch CLONIDINE HCL [id number] William Price MD CLONIDINE HCL 0.2 MG TABS One tablet by mouth three times daily X 9 doses CLONIDINE HCL [id number] William Price MD IMODIUM A-D 2 MG TABS PRN Diarrhea Take 2 tablets by mouth every 8 hours X 96 hours LOPERAMIDE HCL [id number] William Price MD PROMETHAZINE HCL 25 MG TABS PRN nausea vomiting PO.take 1 tablet every 6 hrs PROMETHAZINE HCL [id number] William Price MD PROMETHAZINE HCL 25 MG SUPP PRN nausea vomiting per rectum.take 1 suppository every 6 hrs OR PROMETHAZINE HCL [id number] William Price MD PROMETHAZINE HCL 25 MG/ML SOLN PRN nausea/vomiting Give 1 ml IM every 6 hours x 96 hours NON-KOP PROMETHAZINE HCL [id number] William Price MD ATIVAN 1 MG TABS PRN Take 2 tablets po q 1 hr for agitation ,tremors,tachycardia(pulserate>=120) or diastolic bp>100mmHg LORAZEPAM [id number] William Price MD ATIVAN 2 MG/ML SOLN PRN 2 mg IM Q1 hours agitation, tremors, tachycardia (pulse rate greater than or equal to 120), or Diastolic blood pressure greater than 100mmHg X 4 days (96 hours) OR LORAZEPAM [id number] William Price MD CHLORDIAZEPOXIDE HCL 25 MG CAPS Take 2 caps by mouth QID X 8 doses THEN 2 caps by mouth TID X 6 doses THEN 2 caps by mouth BID X 4 doses THEN 2 caps by mouth QD X 2 doses. NON-KOP CHLORDIAZEPOXIDE HCL [id number] William Price MD THIAMINE HCL 100 MG TABS Take 1 tablet by mouth daily x 3 days NON-KOP THIAMINE HCL [id number] William Price MD THIAMINE HCL 100 MG/ML SOLN If not able to tolerate tabs, Give 100 mg IM daily x 3 days NON-KOP THIAMINE HCL [id number] William Price MD METFORMIN HCL 500 MG TABS 1 tab po bid x 30 days non kop METFORMIN HCL [id number] William Price MD Medications Administered No information available. Allergies, Adverse Reactions, Alerts No information available.
--- OUTSIDE RECORDS SUMMARY | 2018-12-20 04:34 | XMS REPORT | Encounter Summary ---
Author Author FOUZIA Soriano, Yanique Grewal Organization [facility] Address Unknown Phone Unavailable Care Team Providers Care Escapement Maker Name Role Phone MD Dee, William Silver Unavailable Conditions or Problems No information available. Medications Medication Instructions Start Date Stop Date Generic Name [facility] Provider LISINOPRIL 20 MG TABS 1 tab po daily x 30 days non kop LISINOPRIL [id number] William Price MD KEPPRA 500 MG TABS Take 1 tablet by mouth twice daily x 30 days. non kop LEVETIRACETAM [id number] William Price MD LEVOTHYROXINE SODIUM 25 MCG TABS 1 tab po daily x 30 days non kop LEVOTHYROXINE SODIUM 16695482177 William Price MD [id number]-1 0.2 MG/24HR PTWK Start with 6th dose of Clonidine X 1 patch CLONIDINE HCL 97546836388 William Price MD CLONIDINE HCL 0.2 MG TABS One tablet by mouth three times daily X 9 doses CLONIDINE HCL [id number] William Price MD IMODIUM A-D 2 MG TABS PRN Diarrhea Take 2 tablets by mouth every 8 hours X 96 hours LOPERAMIDE HCL [id number] William Price MD PROMETHAZINE HCL 25 MG TABS PRN nausea vomiting PO.take 1 tablet every 6 hrs PROMETHAZINE HCL [id number] William Price MD PROMETHAZINE HCL 25 MG SUPP PRN nausea vomiting per rectum.take 1 suppository every 6 hrs OR PROMETHAZINE HCL [id number] William Price MD PROMETHAZINE HCL 25 MG/ML SOLN PRN nausea/vomiting Give 1 ml IM every 6 hours x 96 hours NON-KOP PROMETHAZINE HCL 71758339921 William Price MD ATIVAN 1 MG TABS PRN Take 2 tablets po q 1 hr for agitation ,tremors,tachycardia(pulserate>=120) or diastolic bp>100mmHg LORAZEPAM [id number] William Price MD ATIVAN 2 MG/ML SOLN PRN 2 mg IM Q1 hours agitation, tremors, tachycardia (pulse rate greater than or equal to 120), or Diastolic blood pressure greater than 100mmHg X 4 days (96 hours) OR LORAZEPAM [id number] William Price MD CHLORDIAZEPOXIDE HCL 25 MG CAPS Take 2 caps by mouth QID X 8 doses THEN 2 caps by mouth TID X 6 doses THEN 2 caps by mouth BID X 4 doses THEN 2 caps by mouth QD X 2 doses. NON-KOP CHLORDIAZEPOXIDE HCL [id number] William Price MD THIAMINE HCL 100 MG TABS Take 1 tablet by mouth daily x 3 days NON-KOP THIAMINE HCL [id number] William Price MD THIAMINE HCL 100 MG/ML SOLN If not able to tolerate tabs, Give 100 mg IM daily x 3 days NON-KOP THIAMINE HCL [id number] William Price MD METFORMIN HCL 500 MG TABS 1 tab po bid x 30 days non kop METFORMIN HCL 56728081178 William Price MD Medications Administered No information available. Allergies, Adverse Reactions, Alerts No information available.
--- OUTSIDE RECORDS SUMMARY | 2018-12-20 04:34 | XMS REPORT | Encounter Summary ---
Author Author Cee Hong, [facility] Address Unknown Phone Unavailable Care Team Providers Care Stumper Feller Name Role Phone FOUZIA Best, Adali Hurtado Unavailable Conditions or Problems No information available. Medications Medication Instructions Start Date Stop Date Generic Name [facility] Provider LEVETIRACETAM 500 MG TABS Take 1 tablet by mouth twice daily x 30 days. nkop LEVETIRACETAM [id number] Adali Best NP THIAMINE HCL 100 MG/ML SOLN If not able to tolerate tabs, Give 100 mg IM daily x 3 days NON-KOP THIAMINE HCL 84984025722 Adali Bryant Best NP METFORMIN HCL 500 MG TABS Take 1 tablet by mouth twice daily x 365 days. nKOP METFORMIN HCL 63548778868 Adali Bryant Best NP BACTRIM DS 800-160 MG TABS Take 1 tablet by mouth twice daily x 10 days. n KOP SULFAMETHOXAZOLE-TRIMETHOPRIM 18036806409 Adali Best NP PROAIR HFA AERS take 2 puffs by mouth BID/PRN asthma for 60 days nkop ALBUTEROL SULFATE AERS 29063766466 Adali Bryant Best NP LEVOTHYROXINE SODIUM 100 MCG TABS Take 1 tablet by mouth every morning x 90 days. n KOP LEVOTHYROXINE SODIUM 00234451499 Adali Bryant Best NP ADVAIR DISKUS 250-50 MCG/DOSE AEPB 1 puff inhaled twice daily x 30 days NKOP FLUTICASONE-SALMETEROL 46273549652 Adali RamiresFOUZIA marlow DEPAKOTE ER 500 MG [id number] one tablet by mouth one times QPM 365 days NKOP DIVALPROEX SODIUM 89361505405 Adali BestFOUZIA SINGULAIR 10 MG TABS Take 1 tablet by mouth in the evening x 30 days. NKOP MONTELUKAST SODIUM 35112848158 Adali RamiresgmsusanFOUZIA TRICOR 145 MG TABS Take 1 tablet by mouth every evening x 365 days. NKOP FENOFIBRATE 51415860527 Adali RamiresgmsusanFOUZIA AAGKNGLU-HXC-9 0.2 MG/24HR PTWK Start with 6th dose of Clonidine X 1 patch nkop CLONIDINE HCL 92529167984 Adali RamiresFOUZIA marlow CLONIDINE HCL 0.2 MG TABS One tablet by mouth three times daily X 9 doses nkop CLONIDINE HCL 66179212377 Adali RamiresFOUZIA marlow IMODIUM A-D 2 MG TABS PRN Diarrhea Take 2 tablets by mouth every 8 hours X 96 hours nkop LOPERAMIDE HCL 94073243875 Adali RamiresFOUZIA marlow PROMETHAZINE HCL 25 MG TABS PRN nausea vomiting PO.take 1 tablet every 6 hrs nkop PROMETHAZINE HCL 63289440515 Adali Hurtado FOUZIA Best PROMETHAZINE HCL 25 MG SUPP PRN nausea vomiting per rectum.take 1 suppository every 6 hrs OR nkop PROMETHAZINE HCL 70328370336 Adali E FOUZIA Best PROMETHAZINE HCL 25 MG/ML SOLN PRN nausea/vomiting Give 1 ml IM every 6 hours x 96 hours NON-KOP PROMETHAZINE HCL 38479745724 Adali Bryant FOUZIA Bets PROMETHAZINE HCL 25 MG SUPP PRN nausea vomiting per rectum.take 1 suppository every 6 hrs OR nkop PROMETHAZINE HCL 29800843970 Adali Bryant FOUZIA Best ATIVAN 1 MG TABS PRN Take 2 tablets po q 1 hr for agitation ,tremors,tachycardia(pulserate>=120) or diastolic bp>100mmHg nkop LORAZEPAM [id number] Adali E FOUZIA Best ATIVAN 2 MG/ML SOLN PRN 2 mg IM Q1 hours agitation, tremors, tachycardia (pulse rate greater than or equal to 120), or Diastolic blood pressure greater than 100mmHg X 4 days (96 hours) OR LORAZEPAM 63443501607 Adali E FOUZIA Best CHLORDIAZEPOXIDE HCL 25 MG CAPS Take 2 caps by mouth QID X 8 doses THEN 2 caps by mouth TID X 6 doses THEN 2 caps by mouth BID X 4 doses THEN 2 caps by mouth QD X 2 doses. NON-KOP CHLORDIAZEPOXIDE HCL 37956836946 Adali E FOUZIA Best THIAMINE HCL 100 MG TABS Take 1 tablet by mouth daily x 3 days NON-KOP THIAMINE HCL 18075537423 Adali E FOUZIA Best LISINOPRIL 10 MG TABS Take one tablet by mouth daily x 365 days nkop LISINOPRIL 75597147796 Adali E FOUZIA Best Medications Administered No information available. Allergies, Adverse Reactions, Alerts No information available.
--- OUTSIDE RECORDS SUMMARY | 2018-12-20 04:34 | XMS REPORT | Encounter Summary ---
Author Author Wise, Candy Counter [facility] Address Unknown Phone Unavailable Care Team Providers Care Airplane Pilot Name Role Phone FOUZIA Best, Adali E Unavailable Conditions or Problems No information available. Medications Medication Instructions Start Date Stop Date Generic Name [facility] Provider METFORMIN HCL 500 MG TABS Take 1 tablet by mouth twice daily x 365 days. nKOP METFORMIN HCL [id number] Adali E FOUZIA Best TRIPLE ANTIBIOTIC 3.5-400-5000 OINT Apply externally daily x 30 days.nkop [id number] Adali E FOUZIA Best LEVOTHYROXINE SODIUM 25 MCG TABS Take 1 tablet by mouth every morning x 90 days. nKOP LEVOTHYROXINE SODIUM [id number] Adali E FOUZIA Best KEPPRA 500 MG TABS Take 1 tablet by mouth twice daily x 30 days. nkop LEVETIRACETAM [id number] Adali E FOUZIA Best ATIVAN 1 MG TABS PRN Take 2 tablets po q 1 hr for agitation ,tremors,tachycardia(pulserate>=120) or diastolic bp>100mmHgnkop LORAZEPAM [id number] Adali E FOUZIA Best [id number]-0 0.2 MG/24HR PTWK Start with 6th dose of Clonidine X 1 patch nkop CLONIDINE HCL 76138312951 Adali E FOUZIA Best CLONIDINE HCL 0.2 MG TABS One tablet by mouth three times daily X 9 doses nkop CLONIDINE HCL 45866572316 Adali Hurtado FOUZIA Best IMODIUM A-D 2 MG TABS PRN Diarrhea Take 2 tablets by mouth every 8 hours X 96 hours nkop LOPERAMIDE HCL 86479931885 Adali Hurtado FOUZIA Best PROMETHAZINE HCL 25 MG TABS PRN nausea vomiting PO.take 1 tablet every 6 hrs nkop PROMETHAZINE HCL 99416310993 Adali Hurtado FOUZIA Best PROMETHAZINE HCL 25 MG SUPP PRN nausea vomiting per rectum.take 1 suppository every 6 hrs OR nkop PROMETHAZINE HCL 00948308027 Adali Hurtado FOUZIA Best PROMETHAZINE HCL 25 MG/ML SOLN PRN nausea/vomiting Give 1 ml IM every 6 hours x 96 hours NON-KOP PROMETHAZINE HCL 14576082204 Adali Hurtado FOUZIA Best IBUPROFEN 400 MG TABS Take 1 tablet twice a day for 30 days.nkop IBUPROFEN 76362258237 Adali Hurtado FOUZIA Best PROAIR HFA AERS take 2 puffs by mouth BID/PRN asthma for 60 days nkop ALBUTEROL SULFATE AERS 33793802709 Adali Hurtado FOUZIA Best ADVAIR DISKUS 250-50 MCG/DOSE AEPB 1 puff inhaled twice daily x 30 days nkop FLUTICASONE-SALMETEROL 41881098740 dAali Hurtado FOUZIA Best BACTRIM DS 800-160 MG TABS Take 1 tablet by mouth twice daily x 10 days. nKOP SULFAMETHOXAZOLE-TRIMETHOPRIM 49570439586 Adali Hurtado FOUZIA Best LISINOPRIL 20 MG TABS Take one tablet by mouth daily x 365 days.n kop LISINOPRIL [id number] Adali E FOUZIA Best Medications Administered No information available. Allergies, Adverse Reactions, Alerts No information available.
--- OUTSIDE RECORDS SUMMARY | 2018-12-20 04:34 | XMS REPORT | Encounter Summary ---
Author Author ANNA Irving Ljon C [facility] Address Unknown Phone Unavailable Care Team Providers Care New Vehicle Sales Consultant Name Role Phone FOUZIA Best, Adali Hurtado Unavailable Conditions or Problems No information available. Medications Medication Instructions Start Date Stop Date Generic Name [facility] Provider LEVETIRACETAM 500 MG TABS Take 1 tablet by mouth twice daily x 30 days. nkop LEVETIRACETAM [id number] Adali Best NP THIAMINE HCL 100 MG/ML SOLN If not able to tolerate tabs, Give 100 mg IM daily x 3 days NON-KOP THIAMINE HCL 88294916853 Adali Bryant Best NP METFORMIN HCL 500 MG TABS Take 1 tablet by mouth twice daily x 365 days. nKOP METFORMIN HCL 09495007163 Adali Bryant Best NP BACTRIM DS 800-160 MG TABS Take 1 tablet by mouth twice daily x 10 days. n KOP SULFAMETHOXAZOLE-TRIMETHOPRIM 57349227035 Adali Best NP PROAIR HFA AERS take 2 puffs by mouth BID/PRN asthma for 60 days nkop ALBUTEROL SULFATE AERS 64309257957 Adali E FOUZIA Best LEVOTHYROXINE SODIUM 100 MCG TABS Take 1 tablet by mouth every morning x 90 days. n KOP LEVOTHYROXINE SODIUM 92248592755 Adali Bryant Best NP ADVAIR DISKUS 250-50 MCG/DOSE AEPB 1 puff inhaled twice daily x 30 days NKOP FLUTICASONE-SALMETEROL 78120186354 Adali RamiresFOUZIA marlow DEPAKOTE ER 500 MG [id number] one tablet by mouth one times QPM 365 days NKOP DIVALPROEX SODIUM 79146969123 Adali BestFOUZIA SINGULAIR 10 MG TABS Take 1 tablet by mouth in the evening x 30 days. NKOP MONTELUKAST SODIUM 79253738729 Adali RamiresgmsusanFOUZIA TRICOR 145 MG TABS Take 1 tablet by mouth every evening x 365 days. NKOP FENOFIBRATE 36340245082 Adali RamiresgmsusanFOUZIA [id number]-KVI-3 0.2 MG/24HR PTWK Start with 6th dose of Clonidine X 1 patch nkop CLONIDINE HCL 96797257300 Adali RamiresFOUZIA marlow CLONIDINE HCL 0.2 MG TABS One tablet by mouth three times daily X 9 doses nkop CLONIDINE HCL 66041740131 Adali RamiresFOUZIA marlow IMODIUM A-D 2 MG TABS PRN Diarrhea Take 2 tablets by mouth every 8 hours X 96 hours nkop LOPERAMIDE HCL 06843941195 Adali RamiresFOUZIA marlow PROMETHAZINE HCL 25 MG TABS PRN nausea vomiting PO.take 1 tablet every 6 hrs nkop PROMETHAZINE HCL 29837038431 Adali Hurtado FOUZIA Best PROMETHAZINE HCL 25 MG SUPP PRN nausea vomiting per rectum.take 1 suppository every 6 hrs OR nkop PROMETHAZINE HCL 67111641918 Adali E FOUZIA Best PROMETHAZINE HCL 25 MG/ML SOLN PRN nausea/vomiting Give 1 ml IM every 6 hours x 96 hours NON-KOP PROMETHAZINE HCL 78672032061 Adali Bryant FOUZIA Best PROMETHAZINE HCL 25 MG SUPP PRN nausea vomiting per rectum.take 1 suppository every 6 hrs OR nkop PROMETHAZINE HCL 18456621995 Adali Bryant FOUZIA Best ATIVAN 1 MG TABS PRN Take 2 tablets po q 1 hr for agitation ,tremors,tachycardia(pulserate>=120) or diastolic bp>100mmHg nkop LORAZEPAM 19069199382 Adali E FOUZIA Best ATIVAN 2 MG/ML SOLN PRN 2 mg IM Q1 hours agitation, tremors, tachycardia (pulse rate greater than or equal to 120), or Diastolic blood pressure greater than 100mmHg X 4 days (96 hours) OR LORAZEPAM 74956086597 Adali E FOUZIA Best CHLORDIAZEPOXIDE HCL 25 MG CAPS Take 2 caps by mouth QID X 8 doses THEN 2 caps by mouth TID X 6 doses THEN 2 caps by mouth BID X 4 doses THEN 2 caps by mouth QD X 2 doses. NON-KOP CHLORDIAZEPOXIDE HCL 03601823096 Adali E FOUZIA Best THIAMINE HCL 100 MG TABS Take 1 tablet by mouth daily x 3 days NON-KOP THIAMINE HCL 68660280937 Adali E FOUZIA Best LISINOPRIL 10 MG TABS Take one tablet by mouth daily x 365 days nkop LISINOPRIL 89241694164 Adali E FOUZIA Best Medications Administered No information available. Allergies, Adverse Reactions, Alerts No information available.
--- OUTSIDE RECORDS SUMMARY | 2018-12-20 04:34 | XMS REPORT | Encounter Summary ---
Author Author ANNA Hemphill Jacqueline E Organization [facility] Address Unknown Phone Unavailable Care Team Providers Care Home Care Chaplain Name Role Phone FOUZIA Best, Adali E Unavailable Conditions or Problems No information available. Medications Medication Instructions Start Date Stop Date Generic Name [facility] Provider METFORMIN HCL 500 MG TABS Take 1 tablet by mouth twice daily x 365 days. nKOP METFORMIN HCL 94838342330 Adali Hurtado FOUZIA Best TRIPLE ANTIBIOTIC 3.5-400-5000 OINT Apply externally daily x 30 days.nkop [id number] 54485344294 Adali E FOUZIA Best LEVOTHYROXINE SODIUM 25 MCG TABS Take 1 tablet by mouth every morning x 90 days. nKOP LEVOTHYROXINE SODIUM 03506086368 Adali Hurtado FOUZIA Best KEPPRA 500 MG TABS Take 1 tablet by mouth twice daily x 30 days. nkop LEVETIRACETAM 14038242323 Adali E FOUZIA Best ATIVAN 1 MG TABS PRN Take 2 tablets po q 1 hr for agitation ,tremors,tachycardia(pulserate>=120) or diastolic bp>100mmHgnkop LORAZEPAM 64589502237 Adali E FOUZIA Best [id number]-9 0.2 MG/24HR PTWK Start with 6th dose of Clonidine X 1 patch nkop CLONIDINE HCL 38975750087 Adali E FOUZIA Best CLONIDINE HCL 0.2 MG TABS One tablet by mouth three times daily X 9 doses nkop CLONIDINE HCL 15040520559 Adali Hurtado FOUZIA Best IMODIUM A-D 2 MG TABS PRN Diarrhea Take 2 tablets by mouth every 8 hours X 96 hours nkop LOPERAMIDE HCL 88545388816 Adali Hurtado FOUZIA Best PROMETHAZINE HCL 25 MG TABS PRN nausea vomiting PO.take 1 tablet every 6 hrs nkop PROMETHAZINE HCL 12734410399 Adali Hurtado FOUZIA Best PROMETHAZINE HCL 25 MG SUPP PRN nausea vomiting per rectum.take 1 suppository every 6 hrs OR nkop PROMETHAZINE HCL 41672131792 Adali Hurtado FOUZIA Best PROMETHAZINE HCL 25 MG/ML SOLN PRN nausea/vomiting Give 1 ml IM every 6 hours x 96 hours NON-KOP PROMETHAZINE HCL 07703555848 Adali Hurtado FOUZIA Best IBUPROFEN 400 MG TABS Take 1 tablet twice a day for 30 days.nkop IBUPROFEN 02486663022 Adali Hurtado FOUZIA Best PROAIR HFA AERS take 2 puffs by mouth BID/PRN asthma for 60 days nkop ALBUTEROL SULFATE AERS 15894604771 Adali Hurtado FOUZIA Best ADVAIR DISKUS 250-50 MCG/DOSE AEPB 1 puff inhaled twice daily x 30 days nkop FLUTICASONE-SALMETEROL 60550741343 Adali Hurtado FOUZIA Best BACTRIM DS 800-160 MG TABS Take 1 tablet by mouth twice daily x 10 days. nKOP SULFAMETHOXAZOLE-TRIMETHOPRIM 01818975479 Adali Hurtado FOUZIA Best LISINOPRIL 20 MG TABS Take one tablet by mouth daily x 365 days.n kop LISINOPRIL 11655219427 Adali E FOUZIA Best Medications Administered No information available. Allergies, Adverse Reactions, Alerts No information available.
--- OUTSIDE RECORDS SUMMARY | 2018-12-20 04:34 | XMS REPORT | Encounter Summary ---
Author Author FOUZIA Best, Adali Hurtado Organization [facility] Address Unknown Phone Unavailable Care Team Providers Care Canvas Cutter Machine Name Role Phone FOUZIA Best, Adali Hurtado Unavailable Conditions or Problems No information available. Medications Medication Instructions Start Date Stop Date Generic Name [facility] Provider METFORMIN HCL 500 MG TABS Take 1 tablet by mouth twice daily x 365 days. nKOP METFORMIN HCL 78757028551 Adali Hurtado FOUZIA Best TRIPLE ANTIBIOTIC 3.5-400-5000 OINT Apply externally daily x 30 days.nkop [id number] 55409635682 Adali Hurtado FOUZIA Best LEVOTHYROXINE SODIUM 25 MCG TABS Take 1 tablet by mouth every morning x 90 days. nKOP LEVOTHYROXINE SODIUM 95011426581 Adali Hurtado FOUZIA Best KEPPRA 500 MG TABS Take 1 tablet by mouth twice daily x 30 days. nkop LEVETIRACETAM 94812020024 Adali Bryant Best NP ATIVAN 1 MG TABS PRN Take 2 tablets po q 1 hr for agitation ,tremors,tachycardia(pulserate>=120) or diastolic bp>100mmHgnkop LORAZEPAM 12772781685 Adali Hurtado FOUZIA Best [id number]-3 0.2 MG/24HR PTWK Start with 6th dose of Clonidine X 1 patch nkop CLONIDINE HCL 02895483576 Adali Hurtado FOUZIA Best CLONIDINE HCL 0.2 MG TABS One tablet by mouth three times daily X 9 doses nkop CLONIDINE HCL 16124890156 Adali Hurtado FOUZIA Best IMODIUM A-D 2 MG TABS PRN Diarrhea Take 2 tablets by mouth every 8 hours X 96 hours nkop LOPERAMIDE HCL 79775756271 Adali Hurtado FOUZIA Best PROMETHAZINE HCL 25 MG TABS PRN nausea vomiting PO.take 1 tablet every 6 hrs nkop PROMETHAZINE HCL 87766314434 Adali Hurtado FOUZIA Best PROMETHAZINE HCL 25 MG SUPP PRN nausea vomiting per rectum.take 1 suppository every 6 hrs OR nkop PROMETHAZINE HCL 83450159993 Adali Hurtado FOUZIA Best PROMETHAZINE HCL 25 MG/ML SOLN PRN nausea/vomiting Give 1 ml IM every 6 hours x 96 hours NON-KOP PROMETHAZINE HCL 49445104159 Adali Hurtado FOUZIA Best IBUPROFEN 400 MG TABS Take 1 tablet twice a day for 30 days.nkop IBUPROFEN 90816936385 Adali Hurtado FOUZIA Best PROAIR HFA AERS take 2 puffs by mouth BID/PRN asthma for 60 days nkop ALBUTEROL SULFATE AERS 35744322030 Adali Hurtado FOUZIA Best ADVAIR DISKUS 250-50 MCG/DOSE AEPB 1 puff inhaled twice daily x 30 days nkop FLUTICASONE-SALMETEROL 50162958083 Adali Hurtado FOUZIA Best BACTRIM DS 800-160 MG TABS Take 1 tablet by mouth twice daily x 10 days. nKOP SULFAMETHOXAZOLE-TRIMETHOPRIM 86767808927 Adali Hurtado FOUZIA Best LISINOPRIL 20 MG TABS Take one tablet by mouth daily x 365 days.n kop LISINOPRIL 67161165163 Adali Hurtado FOUZIA Best Medications Administered No information available. Allergies, Adverse Reactions, Alerts No information available.
--- OUTSIDE RECORDS SUMMARY | 2018-12-20 04:34 | XMS REPORT | Encounter Summary ---
Author Author ANNA Clayton, Maricarmen Organization [facility] Address [address] [place] [address] Phone Care Team Providers Care Staff Scientist Name Role Phone MD Dee, William Silver Unavailable Conditions or Problems No information available. Medications Medication Instructions Start Date Stop Date Generic Name [facility] Provider LISINOPRIL 20 MG TABS 1 tab po daily x 30 days non kop LISINOPRIL 72612878260 William Price MD KEPPRA 500 MG TABS Take 1 tablet by mouth twice daily x 30 days. non kop LEVETIRACETAM 77933246630 William Price MD LEVOTHYROXINE SODIUM 25 MCG TABS 1 tab po daily x 30 days non kop LEVOTHYROXINE SODIUM 02513221416 William Price MD [id number] 0.2 MG/24HR PTWK Start with 6th dose of Clonidine X 1 patch CLONIDINE HCL 93574174949 William Price MD CLONIDINE HCL 0.2 MG TABS One tablet by mouth three times daily X 9 doses CLONIDINE HCL 54399330220 William Price MD IMODIUM A-D 2 MG TABS PRN Diarrhea Take 2 tablets by mouth every 8 hours X 96 hours LOPERAMIDE HCL 98931766348 William Price MD PROMETHAZINE HCL 25 MG TABS PRN nausea vomiting PO.take 1 tablet every 6 hrs PROMETHAZINE HCL 70208549324 William Price MD PROMETHAZINE HCL 25 MG SUPP PRN nausea vomiting per rectum.take 1 suppository every 6 hrs OR PROMETHAZINE HCL 51836958226 William Price MD PROMETHAZINE HCL 25 MG/ML SOLN PRN nausea/vomiting Give 1 ml IM every 6 hours x 96 hours NON-KOP PROMETHAZINE HCL 32055191334 William Price MD ATIVAN 1 MG TABS PRN Take 2 tablets po q 1 hr for agitation ,tremors,tachycardia(pulserate>=120) or diastolic bp>100mmHg LORAZEPAM 43306218552 William Price MD ATIVAN 2 MG/ML SOLN PRN 2 mg IM Q1 hours agitation, tremors, tachycardia (pulse rate greater than or equal to 120), or Diastolic blood pressure greater than 100mmHg X 4 days (96 hours) OR LORAZEPAM 60740664634 William Price MD CHLORDIAZEPOXIDE HCL 25 MG CAPS Take 2 caps by mouth QID X 8 doses THEN 2 caps by mouth TID X 6 doses THEN 2 caps by mouth BID X 4 doses THEN 2 caps by mouth QD X 2 doses. NON-KOP CHLORDIAZEPOXIDE HCL 43116776370 William Price MD THIAMINE HCL 100 MG TABS Take 1 tablet by mouth daily x 3 days NON-KOP THIAMINE HCL 90651114200 William Price MD THIAMINE HCL 100 MG/ML SOLN If not able to tolerate tabs, Give 100 mg IM daily x 3 days NON-KOP THIAMINE HCL 86569323493 William Price MD METFORMIN HCL 500 MG TABS 1 tab po bid x 30 days non kop METFORMIN HCL 84905819503 William Price MD Medications Administered No information available. Allergies, Adverse Reactions, Alerts No information available.
--- OUTSIDE RECORDS SUMMARY | 2018-12-20 04:34 | XMS REPORT | Encounter Summary ---
Author Author ANNA Murillo, Yuliana Bond [facility] Address Unknown Phone Unavailable Care Team Providers Care Tile Sorter Name Role Phone MD Dee, William Silver Unavailable Conditions or Problems No information available. Medications Medication Instructions Start Date Stop Date Generic Name [facility] Provider LISINOPRIL 20 MG TABS 1 tab po daily x 30 days non kop LISINOPRIL 55973493406 William Price MD KEPPRA 500 MG TABS Take 1 tablet by mouth twice daily x 30 days. non kop LEVETIRACETAM 90356975302 William Price MD LEVOTHYROXINE SODIUM 25 MCG TABS 1 tab po daily x 30 days non kop LEVOTHYROXINE SODIUM 76560200366 William Price MD [id number] 0.2 MG/24HR PTWK Start with 6th dose of Clonidine X 1 patch CLONIDINE HCL 18761934426 William Price MD CLONIDINE HCL 0.2 MG TABS One tablet by mouth three times daily X 9 doses CLONIDINE HCL 05704572510 William Price MD IMODIUM A-D 2 MG TABS PRN Diarrhea Take 2 tablets by mouth every 8 hours X 96 hours LOPERAMIDE HCL 18332857872 William Price MD PROMETHAZINE HCL 25 MG TABS PRN nausea vomiting PO.take 1 tablet every 6 hrs PROMETHAZINE HCL 27595179429 William Price MD PROMETHAZINE HCL 25 MG SUPP PRN nausea vomiting per rectum.take 1 suppository every 6 hrs OR PROMETHAZINE HCL 03156793227 William Price MD PROMETHAZINE HCL 25 MG/ML SOLN PRN nausea/vomiting Give 1 ml IM every 6 hours x 96 hours NON-KOP PROMETHAZINE HCL 77632304750 William Price MD ATIVAN 1 MG TABS PRN Take 2 tablets po q 1 hr for agitation ,tremors,tachycardia(pulserate>=120) or diastolic bp>100mmHg LORAZEPAM 01415885694 William Price MD ATIVAN 2 MG/ML SOLN PRN 2 mg IM Q1 hours agitation, tremors, tachycardia (pulse rate greater than or equal to 120), or Diastolic blood pressure greater than 100mmHg X 4 days (96 hours) OR LORAZEPAM 10965546470 William Price MD CHLORDIAZEPOXIDE HCL 25 MG CAPS Take 2 caps by mouth QID X 8 doses THEN 2 caps by mouth TID X 6 doses THEN 2 caps by mouth BID X 4 doses THEN 2 caps by mouth QD X 2 doses. NON-KOP CHLORDIAZEPOXIDE HCL 00281706952 William Price MD THIAMINE HCL 100 MG TABS Take 1 tablet by mouth daily x 3 days NON-KOP THIAMINE HCL 19135208285 iWlliam Price MD THIAMINE HCL 100 MG/ML SOLN If not able to tolerate tabs, Give 100 mg IM daily x 3 days NON-KOP THIAMINE HCL 85961330733 William Price MD METFORMIN HCL 500 MG TABS 1 tab po bid x 30 days non kop METFORMIN HCL 24147135381 William Price MD Medications Administered No information available. Allergies, Adverse Reactions, Alerts No information available.
--- OUTSIDE RECORDS SUMMARY | 2018-12-20 04:34 | XMS REPORT | Encounter Summary ---
Author Author ANNA Murillo, Yuliana Bond [facility] Address Unknown Phone Unavailable Care Team Providers Care Accounts Executive Name Role Phone MD Dee, William Silver Unavailable Conditions or Problems No information available. Medications Medication Instructions Start Date Stop Date Generic Name [facility] Provider LISINOPRIL 20 MG TABS 1 tab po daily x 30 days non kop LISINOPRIL 54107865245 William Price MD KEPPRA 500 MG TABS Take 1 tablet by mouth twice daily x 30 days. non kop LEVETIRACETAM 75512206002 William Price MD LEVOTHYROXINE SODIUM 25 MCG TABS 1 tab po daily x 30 days non kop LEVOTHYROXINE SODIUM 02652261208 William Price MD [id number] 0.2 MG/24HR PTWK Start with 6th dose of Clonidine X 1 patch CLONIDINE HCL 23516881505 William Price MD CLONIDINE HCL 0.2 MG TABS One tablet by mouth three times daily X 9 doses CLONIDINE HCL 57485392291 William Price MD IMODIUM A-D 2 MG TABS PRN Diarrhea Take 2 tablets by mouth every 8 hours X 96 hours LOPERAMIDE HCL 17896518616 William Price MD PROMETHAZINE HCL 25 MG TABS PRN nausea vomiting PO.take 1 tablet every 6 hrs PROMETHAZINE HCL 83275255999 William Price MD PROMETHAZINE HCL 25 MG SUPP PRN nausea vomiting per rectum.take 1 suppository every 6 hrs OR PROMETHAZINE HCL 44492851743 William Price MD PROMETHAZINE HCL 25 MG/ML SOLN PRN nausea/vomiting Give 1 ml IM every 6 hours x 96 hours NON-KOP PROMETHAZINE HCL 00503207172 William Price MD ATIVAN 1 MG TABS PRN Take 2 tablets po q 1 hr for agitation ,tremors,tachycardia(pulserate>=120) or diastolic bp>100mmHg LORAZEPAM 05550799677 William Price MD ATIVAN 2 MG/ML SOLN PRN 2 mg IM Q1 hours agitation, tremors, tachycardia (pulse rate greater than or equal to 120), or Diastolic blood pressure greater than 100mmHg X 4 days (96 hours) OR LORAZEPAM 63379784602 William Price MD CHLORDIAZEPOXIDE HCL 25 MG CAPS Take 2 caps by mouth QID X 8 doses THEN 2 caps by mouth TID X 6 doses THEN 2 caps by mouth BID X 4 doses THEN 2 caps by mouth QD X 2 doses. NON-KOP CHLORDIAZEPOXIDE HCL 41117289765 William Price MD THIAMINE HCL 100 MG TABS Take 1 tablet by mouth daily x 3 days NON-KOP THIAMINE HCL 59694629391 William Price MD THIAMINE HCL 100 MG/ML SOLN If not able to tolerate tabs, Give 100 mg IM daily x 3 days NON-KOP THIAMINE HCL 36390583097 William Price MD METFORMIN HCL 500 MG TABS 1 tab po bid x 30 days non kop METFORMIN HCL 18253265863 William Price MD Medications Administered No information available. Allergies, Adverse Reactions, Alerts No information available.
--- OUTSIDE RECORDS SUMMARY | 2018-12-20 04:34 | XMS REPORT | Encounter Summary ---
Author Author MD Dee, William Silver Organization [facility] Address Unknown Phone Unavailable Care Team Providers Care Wheel Mill Operator Name Role Phone MD Price Mir Kareem Unavailable Conditions or Problems No information available. Medications Medication Instructions Start Date Stop Date Generic Name [facility] Provider LISINOPRIL 20 MG TABS 1 tab po daily x 30 days non kop LISINOPRIL 35492714217 William Price MD KEPPRA 500 MG TABS Take 1 tablet by mouth twice daily x 30 days. non kop LEVETIRACETAM 04939891420 William Price MD LEVOTHYROXINE SODIUM 25 MCG TABS 1 tab po daily x 30 days non kop LEVOTHYROXINE SODIUM 95024198720 William Price MD [id number]-5 0.2 MG/24HR PTWK Start with 6th dose of Clonidine X 1 patch CLONIDINE HCL 88341140808 William Price MD CLONIDINE HCL 0.2 MG TABS One tablet by mouth three times daily X 9 doses CLONIDINE HCL 01886118627 William Price MD IMODIUM A-D 2 MG TABS PRN Diarrhea Take 2 tablets by mouth every 8 hours X 96 hours LOPERAMIDE HCL 93036241643 William Price MD PROMETHAZINE HCL 25 MG TABS PRN nausea vomiting PO.take 1 tablet every 6 hrs PROMETHAZINE HCL 20249219551 William Price MD PROMETHAZINE HCL 25 MG SUPP PRN nausea vomiting per rectum.take 1 suppository every 6 hrs OR PROMETHAZINE HCL 68944572885 William Price MD PROMETHAZINE HCL 25 MG/ML SOLN PRN nausea/vomiting Give 1 ml IM every 6 hours x 96 hours NON-KOP PROMETHAZINE HCL 01216756284 William Price MD ATIVAN 1 MG TABS PRN Take 2 tablets po q 1 hr for agitation ,tremors,tachycardia(pulserate>=120) or diastolic bp>100mmHg LORAZEPAM 33868759624 William Price MD ATIVAN 2 MG/ML SOLN PRN 2 mg IM Q1 hours agitation, tremors, tachycardia (pulse rate greater than or equal to 120), or Diastolic blood pressure greater than 100mmHg X 4 days (96 hours) OR LORAZEPAM 81971039756 William Price MD CHLORDIAZEPOXIDE HCL 25 MG CAPS Take 2 caps by mouth QID X 8 doses THEN 2 caps by mouth TID X 6 doses THEN 2 caps by mouth BID X 4 doses THEN 2 caps by mouth QD X 2 doses. NON-KOP CHLORDIAZEPOXIDE HCL 70930315876 William Price MD THIAMINE HCL 100 MG TABS Take 1 tablet by mouth daily x 3 days NON-KOP THIAMINE HCL 02235301009 William Price MD THIAMINE HCL 100 MG/ML SOLN If not able to tolerate tabs, Give 100 mg IM daily x 3 days NON-KOP THIAMINE HCL 28847413199 William Price MD METFORMIN HCL 500 MG TABS 1 tab po bid x 30 days non kop METFORMIN HCL 97686042619 William Price MD Medications Administered No information available. Allergies, Adverse Reactions, Alerts No information available.
--- OUTSIDE RECORDS SUMMARY | 2018-12-20 04:34 | XMS REPORT | Encounter Summary ---
Author Author Joby LVN, Jacqueline E Organization [facility] Address [address] [place] [address] Phone Care Team Providers Care Electric Meter Setter Name Role Phone FOUZIA Best, Adali E Unavailable Conditions or Problems No information available. Medications Medication Instructions Start Date Stop Date Generic Name ND Provider LEVETIRACETAM 500 MG TABS Take 1 tablet by mouth twice daily x 30 days. nkop LEVETIRACETAM [id number] Adali E FOUZIA Best THIAMINE HCL 100 MG/ML SOLN If not able to tolerate tabs, Give 100 mg IM daily x 3 days NON-KOP THIAMINE HCL 98369509980 Adali E FOUZIA Best METFORMIN HCL 500 MG TABS Take 1 tablet by mouth twice daily x 365 days. nKOP METFORMIN HCL 55181204887 Adali E FOUZIA Best BACTRIM DS 800-160 MG TABS Take 1 tablet by mouth twice daily x 10 days. n KOP SULFAMETHOXAZOLE-TRIMETHOPRIM 15313729433 Adali Best NP PROAIR HFA AERS take 2 puffs by mouth BID/PRN asthma for 60 days nkop ALBUTEROL SULFATE AERS 59227449661 Aadli Best NP LEVOTHYROXINE SODIUM 100 MCG TABS Take 1 tablet by mouth every morning x 90 days. n KOP LEVOTHYROXINE SODIUM 12600097005 Adali E FOUZIA Best ADVAIR DISKUS 250-50 MCG/DOSE AEPB 1 puff inhaled twice daily x 30 days NKOP FLUTICASONE-SALMETEROL 15895208063 Adali Hurtado FOUZIA Best DEPAKOTE ER 500 MG [id number] one tablet by mouth one times QPM 365 days NKOP DIVALPROEX SODIUM 87815105320 Adali RamachandranFOUZIA marin SINGULAIR 10 MG TABS Take 1 tablet by mouth in the evening x 30 days. NKOP MONTELUKAST SODIUM 84751676176 Adali QuirosFOUZIA gibson TRICOR 145 MG TABS Take 1 tablet by mouth every evening x 365 days. NKOP FENOFIBRATE 30798379670 Adali Hurtado FOUZIA Best [id number]-1 0.2 MG/24HR PTWK Start with 6th dose of Clonidine X 1 patch nkop CLONIDINE HCL 28802864302 Adali Hurtado FOUZIA Best CLONIDINE HCL 0.2 MG TABS One tablet by mouth three times daily X 9 doses nkop CLONIDINE HCL 71888314945 Adali Hurtado FOUZIA Best IMODIUM A-D 2 MG TABS PRN Diarrhea Take 2 tablets by mouth every 8 hours X 96 hours nkop LOPERAMIDE HCL 06536937747 Adali Hurtado FOUZIA Best PROMETHAZINE HCL 25 MG TABS PRN nausea vomiting PO.take 1 tablet every 6 hrs nkop PROMETHAZINE HCL 24413167002 Adali Hurtado FOUZIA Best PROMETHAZINE HCL 25 MG SUPP PRN nausea vomiting per rectum.take 1 suppository every 6 hrs OR nkop PROMETHAZINE HCL 29508950407 Adali Hurtado FOUZIA Best PROMETHAZINE HCL 25 MG/ML SOLN PRN nausea/vomiting Give 1 ml IM every 6 hours x 96 hours NON-KOP PROMETHAZINE HCL 69803619192 Adali E FOUZIA Best PROMETHAZINE HCL 25 MG SUPP PRN nausea vomiting per rectum.take 1 suppository every 6 hrs OR nkop PROMETHAZINE HCL 78863905877 Adali E FOUZIA Best ATIVAN 1 MG TABS PRN Take 2 tablets po q 1 hr for agitation ,tremors,tachycardia(pulserate>=120) or diastolic bp>100mmHg nkop LORAZEPAM 72379295137 Adali E FOUZIA Best ATIVAN 2 MG/ML SOLN PRN 2 mg IM Q1 hours agitation, tremors, tachycardia (pulse rate greater than or equal to 120), or Diastolic blood pressure greater than 100mmHg X 4 days (96 hours) OR LORAZEPAM 77467094826 Adali E FOUZIA Best CHLORDIAZEPOXIDE HCL 25 MG CAPS Take 2 caps by mouth QID X 8 doses THEN 2 caps by mouth TID X 6 doses THEN 2 caps by mouth BID X 4 doses THEN 2 caps by mouth QD X 2 doses. NON-KOP CHLORDIAZEPOXIDE HCL 77727730182 Adali E FOUZIA Best THIAMINE HCL 100 MG TABS Take 1 tablet by mouth daily x 3 days NON-KOP THIAMINE HCL 35693035439 Adali E FOUZIA Best LISINOPRIL 10 MG TABS Take one tablet by mouth daily x 365 days nkop LISINOPRIL 36626128912 Adali E FOUZIA Best Medications Administered No information available. Allergies, Adverse Reactions, Alerts No information available.
--- OUTSIDE RECORDS SUMMARY | 2018-12-20 04:34 | XMS REPORT | Encounter Summary ---
Author Author ANNA Dao, Gloria Organization [facility] Address [address] [place] [address] Phone Care Team Providers Care Bone Density Technician Name Role Phone FOUZIA Best, Adali E Unavailable Conditions or Problems No information available. Medications Medication Instructions Start Date Stop Date Generic Name [facility] Provider LEVETIRACETAM 500 MG TABS Take 1 tablet by mouth twice daily x 30 days. nkop LEVETIRACETAM [id number] Adali E FOUZIA Best THIAMINE HCL 100 MG/ML SOLN If not able to tolerate tabs, Give 100 mg IM daily x 3 days NON-KOP THIAMINE HCL 33207032833 Adali E FOUZIA Best METFORMIN HCL 500 MG TABS Take 1 tablet by mouth twice daily x 365 days. nKOP METFORMIN HCL 84071665754 Adali E FOUZIA Best BACTRIM DS 800-160 MG TABS Take 1 tablet by mouth twice daily x 10 days. n KOP SULFAMETHOXAZOLE-TRIMETHOPRIM 64936927195 Adali Best NP PROAIR HFA AERS take 2 puffs by mouth BID/PRN asthma for 60 days nkop ALBUTEROL SULFATE AERS 76382724206 Adali Best NP LEVOTHYROXINE SODIUM 100 MCG TABS Take 1 tablet by mouth every morning x 90 days. n KOP LEVOTHYROXINE SODIUM 93164910692 Adali E FOUZIA Best ADVAIR DISKUS 250-50 MCG/DOSE AEPB 1 puff inhaled twice daily x 30 days NKOP FLUTICASONE-SALMETEROL 86769284726 Adali Hurtado FOUZIA Best DEPAKOTE ER 500 MG [id number] one tablet by mouth one times QPM 365 days NKOP DIVALPROEX SODIUM 80712446621 Adali QuirosFOUZIA gibson SINGULAIR 10 MG TABS Take 1 tablet by mouth in the evening x 30 days. NKOP MONTELUKAST SODIUM 33423580260 Adali Hurtado FOUZIA Best TRICOR 145 MG TABS Take 1 tablet by mouth every evening x 365 days. NKOP FENOFIBRATE 83151142134 Adali Hurtado FOUZIA Best [id number]-0 0.2 MG/24HR PTWK Start with 6th dose of Clonidine X 1 patch nkop CLONIDINE HCL 26115732061 Adali Hurtado FOUZIA Best CLONIDINE HCL 0.2 MG TABS One tablet by mouth three times daily X 9 doses nkop CLONIDINE HCL 48956721466 Adali Hurtado FOUZIA Best IMODIUM A-D 2 MG TABS PRN Diarrhea Take 2 tablets by mouth every 8 hours X 96 hours nkop LOPERAMIDE HCL 12791795355 Adali Hurtado FOUZIA Best PROMETHAZINE HCL 25 MG TABS PRN nausea vomiting PO.take 1 tablet every 6 hrs nkop PROMETHAZINE HCL 66390818867 Adali Hurtado FOUZIA Best PROMETHAZINE HCL 25 MG SUPP PRN nausea vomiting per rectum.take 1 suppository every 6 hrs OR nkop PROMETHAZINE HCL 11508179858 Adali Hurtado FOUZIA Best PROMETHAZINE HCL 25 MG/ML SOLN PRN nausea/vomiting Give 1 ml IM every 6 hours x 96 hours NON-KOP PROMETHAZINE HCL 10203305957 Adali E FOUZIA Best PROMETHAZINE HCL 25 MG SUPP PRN nausea vomiting per rectum.take 1 suppository every 6 hrs OR nkop PROMETHAZINE HCL 98905515316 Adail E FOUZIA Best ATIVAN 1 MG TABS PRN Take 2 tablets po q 1 hr for agitation ,tremors,tachycardia(pulserate>=120) or diastolic bp>100mmHg nkop LORAZEPAM 79951912508 Adali E FOUZIA Best ATIVAN 2 MG/ML SOLN PRN 2 mg IM Q1 hours agitation, tremors, tachycardia (pulse rate greater than or equal to 120), or Diastolic blood pressure greater than 100mmHg X 4 days (96 hours) OR LORAZEPAM 68406488091 Adali E FOUZIA Best CHLORDIAZEPOXIDE HCL 25 MG CAPS Take 2 caps by mouth QID X 8 doses THEN 2 caps by mouth TID X 6 doses THEN 2 caps by mouth BID X 4 doses THEN 2 caps by mouth QD X 2 doses. NON-KOP CHLORDIAZEPOXIDE HCL 08092081120 Adali E FOUZIA Best THIAMINE HCL 100 MG TABS Take 1 tablet by mouth daily x 3 days NON-KOP THIAMINE HCL 81066700411 Adali E FOUZIA Best LISINOPRIL 10 MG TABS Take one tablet by mouth daily x 365 days nkop LISINOPRIL 18918649854 Adali E FOUZIA Best Medications Administered No information available. Allergies, Adverse Reactions, Alerts No information available.
--- OUTSIDE RECORDS SUMMARY | 2018-12-20 04:34 | XMS REPORT | Encounter Summary ---
Author Author KAROLINA Le, [facility] Address Unknown Phone Unavailable Care Team Providers Care Director Of Entertainment Name Role Phone MD Dee, William Silver Unavailable Conditions or Problems No information available. Medications Medication Instructions Start Date Stop Date Generic Name [facility] Provider LISINOPRIL 20 MG TABS 1 tab po daily x 30 days non kop LISINOPRIL [id number] William Price MD KEPPRA 500 MG TABS Take 1 tablet by mouth twice daily x 30 days. non kop LEVETIRACETAM 58755317958 William Price MD LEVOTHYROXINE SODIUM 25 MCG TABS 1 tab po daily x 30 days non kop LEVOTHYROXINE SODIUM 02240783046 William Price MD [id number] 0.2 MG/24HR PTWK Start with 6th dose of Clonidine X 1 patch CLONIDINE HCL 81754059996 William Price MD CLONIDINE HCL 0.2 MG TABS One tablet by mouth three times daily X 9 doses CLONIDINE HCL 46931602793 William Price MD IMODIUM A-D 2 MG TABS PRN Diarrhea Take 2 tablets by mouth every 8 hours X 96 hours LOPERAMIDE HCL 72335606978 William Price MD PROMETHAZINE HCL 25 MG TABS PRN nausea vomiting PO.take 1 tablet every 6 hrs PROMETHAZINE HCL 02460545946 William Price MD PROMETHAZINE HCL 25 MG SUPP PRN nausea vomiting per rectum.take 1 suppository every 6 hrs OR PROMETHAZINE HCL 96851931048 William Price MD PROMETHAZINE HCL 25 MG/ML SOLN PRN nausea/vomiting Give 1 ml IM every 6 hours x 96 hours NON-KOP PROMETHAZINE HCL 33114563891 William Price MD ATIVAN 1 MG TABS PRN Take 2 tablets po q 1 hr for agitation ,tremors,tachycardia(pulserate>=120) or diastolic bp>100mmHg LORAZEPAM 78715679836 William Price MD ATIVAN 2 MG/ML SOLN PRN 2 mg IM Q1 hours agitation, tremors, tachycardia (pulse rate greater than or equal to 120), or Diastolic blood pressure greater than 100mmHg X 4 days (96 hours) OR LORAZEPAM 22066125948 William Price MD CHLORDIAZEPOXIDE HCL 25 MG CAPS Take 2 caps by mouth QID X 8 doses THEN 2 caps by mouth TID X 6 doses THEN 2 caps by mouth BID X 4 doses THEN 2 caps by mouth QD X 2 doses. NON-KOP CHLORDIAZEPOXIDE HCL 94302013072 William Price MD THIAMINE HCL 100 MG TABS Take 1 tablet by mouth daily x 3 days NON-KOP THIAMINE HCL 87278282343 William Price MD THIAMINE HCL 100 MG/ML SOLN If not able to tolerate tabs, Give 100 mg IM daily x 3 days NON-KOP THIAMINE HCL 94275329585 William Price MD METFORMIN HCL 500 MG TABS 1 tab po bid x 30 days non kop METFORMIN HCL 61994681381 William Price MD Medications Administered No information available. Allergies, Adverse Reactions, Alerts No information available.
--- OUTSIDE RECORDS SUMMARY | 2018-12-20 04:34 | XMS REPORT | Encounter Summary ---
Author Author ANNA Ordoñez Oluchi B Organization [facility] Address Unknown Phone Unavailable Care Team Providers Care Crane Engineer Name Role Phone MD Dee, William Silver Unavailable Conditions or Problems No information available. Medications Medication Instructions Start Date Stop Date Generic Name [facility] Provider LISINOPRIL 20 MG TABS 1 tab po daily x 30 days non kop LISINOPRIL [id number] William Price MD KEPPRA 500 MG TABS Take 1 tablet by mouth twice daily x 30 days. non kop LEVETIRACETAM 34787979319 William Price MD LEVOTHYROXINE SODIUM 25 MCG TABS 1 tab po daily x 30 days non kop LEVOTHYROXINE SODIUM 82194663209 William Price MD [id number] 0.2 MG/24HR PTWK Start with 6th dose of Clonidine X 1 patch CLONIDINE HCL 05921593068 William Price MD CLONIDINE HCL 0.2 MG TABS One tablet by mouth three times daily X 9 doses CLONIDINE HCL 91770810746 William Price MD IMODIUM A-D 2 MG TABS PRN Diarrhea Take 2 tablets by mouth every 8 hours X 96 hours LOPERAMIDE HCL 73248096306 William Price MD PROMETHAZINE HCL 25 MG TABS PRN nausea vomiting PO.take 1 tablet every 6 hrs PROMETHAZINE HCL 96438250371 William Price MD PROMETHAZINE HCL 25 MG SUPP PRN nausea vomiting per rectum.take 1 suppository every 6 hrs OR PROMETHAZINE HCL 48924709305 William Price MD PROMETHAZINE HCL 25 MG/ML SOLN PRN nausea/vomiting Give 1 ml IM every 6 hours x 96 hours NON-KOP PROMETHAZINE HCL 76702603555 William Price MD ATIVAN 1 MG TABS PRN Take 2 tablets po q 1 hr for agitation ,tremors,tachycardia(pulserate>=120) or diastolic bp>100mmHg LORAZEPAM 82447709146 William Price MD ATIVAN 2 MG/ML SOLN PRN 2 mg IM Q1 hours agitation, tremors, tachycardia (pulse rate greater than or equal to 120), or Diastolic blood pressure greater than 100mmHg X 4 days (96 hours) OR LORAZEPAM 23263219247 William Price MD CHLORDIAZEPOXIDE HCL 25 MG CAPS Take 2 caps by mouth QID X 8 doses THEN 2 caps by mouth TID X 6 doses THEN 2 caps by mouth BID X 4 doses THEN 2 caps by mouth QD X 2 doses. NON-KOP CHLORDIAZEPOXIDE HCL 45870324331 William Pirce MD THIAMINE HCL 100 MG TABS Take 1 tablet by mouth daily x 3 days NON-KOP THIAMINE HCL 23966721300 William Price MD THIAMINE HCL 100 MG/ML SOLN If not able to tolerate tabs, Give 100 mg IM daily x 3 days NON-KOP THIAMINE HCL 19794113831 William Price MD METFORMIN HCL 500 MG TABS 1 tab po bid x 30 days non kop METFORMIN HCL 88115003487 William Price MD Medications Administered No information available. Allergies, Adverse Reactions, Alerts No information available.
--- OUTSIDE RECORDS SUMMARY | 2018-12-20 04:35 | XMS REPORT | Encounter Summary ---
Author Author ANNA Ramirez, Tino O Organization [facility] Address [address] [place] [address] Phone Care Team Providers Care Morning News Producer Name Role Phone FOUZIA Best, Adali E Unavailable Conditions or Problems No information available. Medications Medication Instructions Start Date Stop Date Generic Name ND Provider METFORMIN HCL 500 MG TABS Take 1 tablet by mouth twice daily x 365 days. nKOP METFORMIN HCL 61689438163 Adali Best NP TRIPLE ANTIBIOTIC 3.5-400-5000 OINT Apply externally daily x 30 days.nkop [id number] 39934960686 Adali Best NP LEVOTHYROXINE SODIUM 25 MCG TABS Take 1 tablet by mouth every morning x 90 days. nKOP LEVOTHYROXINE SODIUM 39044025081 Adali Best NP KEPPRA 500 MG TABS Take 1 tablet by mouth twice daily x 30 days. nkop LEVETIRACETAM 34710888937 Adali Best NP ATIVAN 1 MG TABS PRN Take 2 tablets po q 1 hr for agitation ,tremors,tachycardia(pulserate>=120) or diastolic bp>100mmHgnkop LORAZEPAM 11658643260 Adali Best NP [id number] 0.2 MG/24HR PTWK Start with 6th dose of Clonidine X 1 patch nkop CLONIDINE HCL 35302268782 Adali Best NP CLONIDINE HCL 0.2 MG TABS One tablet by mouth three times daily X 9 doses nkop CLONIDINE HCL 84863331402 Adali Hurtado FOUZIA Best IMODIUM A-D 2 MG TABS PRN Diarrhea Take 2 tablets by mouth every 8 hours X 96 hours nkop LOPERAMIDE HCL 60206567460 Adali Hurtado FOUZIA Best PROMETHAZINE HCL 25 MG TABS PRN nausea vomiting PO.take 1 tablet every 6 hrs nkop PROMETHAZINE HCL 92887565674 Adali Hurtado FOUZIA Best PROMETHAZINE HCL 25 MG SUPP PRN nausea vomiting per rectum.take 1 suppository every 6 hrs OR nkop PROMETHAZINE HCL 83491457803 Adali Hurtado FOUZIA Best PROMETHAZINE HCL 25 MG/ML SOLN PRN nausea/vomiting Give 1 ml IM every 6 hours x 96 hours NON-KOP PROMETHAZINE HCL 00629205205 Adali Hurtado FOUZIA Best IBUPROFEN 400 MG TABS Take 1 tablet twice a day for 30 days.nkop IBUPROFEN 95281184668 Adali Hurtado FOUZIA Best PROAIR HFA AERS take 2 puffs by mouth BID/PRN asthma for 60 days nkop ALBUTEROL SULFATE AERS 36226004642 Adali Hurtado FOUZIA Best ADVAIR DISKUS 250-50 MCG/DOSE AEPB 1 puff inhaled twice daily x 30 days nkop FLUTICASONE-SALMETEROL 11095227085 Adali Hurtado FOUZIA Best BACTRIM DS 800-160 MG TABS Take 1 tablet by mouth twice daily x 10 days. nKOP SULFAMETHOXAZOLE-TRIMETHOPRIM 13803095753 Adali Hurtado FOUZIA Best LISINOPRIL 20 MG TABS Take one tablet by mouth daily x 365 days.n kop LISINOPRIL 46519102047 Adali Best NP Medications Administered No information available. Allergies, Adverse Reactions, Alerts No information available.
--- OUTSIDE RECORDS SUMMARY | 2018-12-20 04:35 | XMS REPORT | Encounter Summary ---
Author Author ANNA Palma, Advanced Electron Beams Organization [facility] Address [address] [place] [address] Phone Care Team Providers Care Aviation Electronic Warfare Operator Name Role Phone FOUZIA Best, Adali E Unavailable Conditions or Problems No information available. Medications Medication Instructions Start Date Stop Date Generic Name [facility] Provider METFORMIN HCL 500 MG TABS Take 1 tablet by mouth twice daily x 365 days. nKOP METFORMIN HCL 73517266981 Adali Best NP TRIPLE ANTIBIOTIC 3.5-400-5000 OINT Apply externally daily x 30 days.nkop [id number] 16380119522 Adali Best NP LEVOTHYROXINE SODIUM 25 MCG TABS Take 1 tablet by mouth every morning x 90 days. nKOP LEVOTHYROXINE SODIUM 09617385554 Adali Best NP KEPPRA 500 MG TABS Take 1 tablet by mouth twice daily x 30 days. nkop LEVETIRACETAM 01031585868 Adali Best NP ATIVAN 1 MG TABS PRN Take 2 tablets po q 1 hr for agitation ,tremors,tachycardia(pulserate>=120) or diastolic bp>100mmHgnkop LORAZEPAM 62039104127 Adali Best NP [id number] 0.2 MG/24HR PTWK Start with 6th dose of Clonidine X 1 patch nkop CLONIDINE HCL 50314134776 Adali Best NP CLONIDINE HCL 0.2 MG TABS One tablet by mouth three times daily X 9 doses nkop CLONIDINE HCL 36288190678 Adali Hurtado FOUZIA Best IMODIUM A-D 2 MG TABS PRN Diarrhea Take 2 tablets by mouth every 8 hours X 96 hours nkop LOPERAMIDE HCL 95397469227 Adali Hurtado FOUZIA Best PROMETHAZINE HCL 25 MG TABS PRN nausea vomiting PO.take 1 tablet every 6 hrs nkop PROMETHAZINE HCL 53518789899 Adali Hurtado FOUZIA Best PROMETHAZINE HCL 25 MG SUPP PRN nausea vomiting per rectum.take 1 suppository every 6 hrs OR nkop PROMETHAZINE HCL 11275220634 Adali Hurtado FOUZIA Best PROMETHAZINE HCL 25 MG/ML SOLN PRN nausea/vomiting Give 1 ml IM every 6 hours x 96 hours NON-KOP PROMETHAZINE HCL 33502945863 Adali Hurtado FOUZIA Best IBUPROFEN 400 MG TABS Take 1 tablet twice a day for 30 days.nkop IBUPROFEN 69492189480 Adali Best NP PROAIR HFA AERS take 2 puffs by mouth BID/PRN asthma for 60 days nkop ALBUTEROL SULFATE AERS 97644105136 Adali Best NP ADVAIR DISKUS 250-50 MCG/DOSE AEPB 1 puff inhaled twice daily x 30 days nkop FLUTICASONE-SALMETEROL 45116427306 Adali Best NP BACTRIM DS 800-160 MG TABS Take 1 tablet by mouth twice daily x 10 days. nKOP SULFAMETHOXAZOLE-TRIMETHOPRIM 41747624539 Adali Hurtado FOUIZA Best LISINOPRIL 20 MG TABS Take one tablet by mouth daily x 365 days.n kop LISINOPRIL 39549103815 Adali Best NP Medications Administered No information available. Allergies, Adverse Reactions, Alerts No information available.
--- OUTSIDE RECORDS SUMMARY | 2018-12-20 04:35 | XMS REPORT | Encounter Summary ---
Author Author ANNA Palma, VIAP Organization [facility] Address [address] [place] [address] Phone Care Team Providers Care Telegraphic Typewriter Repairer Name Role Phone FOUZIA Best, Adali E Unavailable Conditions or Problems No information available. Medications Medication Instructions Start Date Stop Date Generic Name [facility] Provider METFORMIN HCL 500 MG TABS Take 1 tablet by mouth twice daily x 365 days. nKOP METFORMIN HCL 14959083071 Adali Best NP TRIPLE ANTIBIOTIC 3.5-400-5000 OINT Apply externally daily x 30 days.nkop [id number] 61485574174 Adali Best NP LEVOTHYROXINE SODIUM 25 MCG TABS Take 1 tablet by mouth every morning x 90 days. nKOP LEVOTHYROXINE SODIUM 67468745412 Adali Best NP KEPPRA 500 MG TABS Take 1 tablet by mouth twice daily x 30 days. nkop LEVETIRACETAM 45341039970 Adali Best NP ATIVAN 1 MG TABS PRN Take 2 tablets po q 1 hr for agitation ,tremors,tachycardia(pulserate>=120) or diastolic bp>100mmHgnkop LORAZEPAM 22856373523 Adali Best NP [id number] 0.2 MG/24HR PTWK Start with 6th dose of Clonidine X 1 patch nkop CLONIDINE HCL 01391208810 Adali Best NP CLONIDINE HCL 0.2 MG TABS One tablet by mouth three times daily X 9 doses nkop CLONIDINE HCL 39476044537 Adali Hurtado FOUZIA Best IMODIUM A-D 2 MG TABS PRN Diarrhea Take 2 tablets by mouth every 8 hours X 96 hours nkop LOPERAMIDE HCL 65945402810 Adali Hurtado FOUZIA Best PROMETHAZINE HCL 25 MG TABS PRN nausea vomiting PO.take 1 tablet every 6 hrs nkop PROMETHAZINE HCL 37014113300 Adali Hurtado FOUZIA Bets PROMETHAZINE HCL 25 MG SUPP PRN nausea vomiting per rectum.take 1 suppository every 6 hrs OR nkop PROMETHAZINE HCL 18766216458 Adali Hurtado FOUZIA Best PROMETHAZINE HCL 25 MG/ML SOLN PRN nausea/vomiting Give 1 ml IM every 6 hours x 96 hours NON-KOP PROMETHAZINE HCL 19785718084 Adali Hurtado FOUZIA Best IBUPROFEN 400 MG TABS Take 1 tablet twice a day for 30 days.nkop IBUPROFEN 37318988936 Adali Best NP PROAIR HFA AERS take 2 puffs by mouth BID/PRN asthma for 60 days nkop ALBUTEROL SULFATE AERS 11051280568 Adali Best NP ADVAIR DISKUS 250-50 MCG/DOSE AEPB 1 puff inhaled twice daily x 30 days nkop FLUTICASONE-SALMETEROL 73957279282 Adali Best NP BACTRIM DS 800-160 MG TABS Take 1 tablet by mouth twice daily x 10 days. nKOP SULFAMETHOXAZOLE-TRIMETHOPRIM 53256858869 Adali Hurtado FOUZIA Best LISINOPRIL 20 MG TABS Take one tablet by mouth daily x 365 days.n kop LISINOPRIL 17606203863 Adali Best NP Medications Administered No information available. Allergies, Adverse Reactions, Alerts No information available.
--- OUTSIDE RECORDS SUMMARY | 2018-12-20 04:42 | XMS REPORT | Summary of Care ---
Author Author [facility] - Health Organization [facility] - Health Address Unknown Phone Unavailable Care Team Providers Care Salesforce Specialist Name Role Phone Pcp, Patient Does Not Have A PCP Reason for Referral * (Routine) Referred By Contact Referred To Contact Status Reason Specialty Diagnoses / Procedures Dolores Solis MD [address] [place] [phone] Pcp, Patient Does Not Have A [address] [place] [address] New Request Diagnoses Syncope, unspecified syncope type P rocedures Discharge Follow-up: PCP PATIENT DOES NOT HAVE A PCP; 3-5 Days * MRI/CAT Scan (STAT) Referred By Contact Referred To Contact Status Reason Specialty Diagnoses / Procedures Badawy, Amr, DO [address] [address] New Request Diagnostic Diagnoses Radiology Injury of head, initial encounter P rocedures CT Cervical Spine W/O Contrast * MRI/CAT Scan (STAT) Referred By Contact Referred To Contact Status Reason Specialty Diagnoses / Procedures Badawy, Amr, DO [address] [address] New Request Diagnostic Diagnoses Radiology Injury of head, initial encounter P rocedures CT Head W/O Contrast * Radiology Services (STAT) Referred By Contact Referred To Contact Status Reason Specialty Diagnoses / Procedures Badawy, Amr, DO [address] [address] New Request Diagnostic Diagnoses Radiology Injury of head, initial encounter P rocedures Chest 1 View * MRI/CAT Scan (STAT) Referred By Contact Referred To Contact Status Reason Specialty Diagnoses / Procedures Soniya Diego, DO [address] [facility] [address] [place] [address] New Request Diagnostic Diagnoses Radiology Injury of head, initial encounter P rocedures CT Cervical Spine W/O Contrast * MRI/CAT Scan (STAT) Referred By Contact Referred To Contact Status Reason Specialty Diagnoses / Procedures Soniya Diego, DO [address] [facility] [address] [place] [address] New Request Diagnostic Diagnoses Radiology Injury of head, initial encounter P rocedures CT Head W/O Contrast * Radiology Services (STAT) Referred By Contact Referred To Contact Status Reason Specialty Diagnoses / Procedures Soniya Diego, DO [id number] [place] [address] New Request Diagnostic Diagnoses Radiology Injury of head, initial encounter P rocedures Chest 1 View Reason for Visit * Auth/Cert Referred By Contact Referred To Contact Status Reason Specialty Diagnoses / Procedures [facility] Emergency Dept [address] [place] [phone] Emergency Medicine Encounter Details Care Team Description Date Type Department Soniya Diego, DO [address] [address] [phone] Monroe Porter MD [address] [place] [phone] Syncope 10/18/2018 Emergency [facility] Health - Medicine/Surgery CLC 4B 10/20/[address] [place] [phone] Allergies Comments Active Allergy Reactions Severity Noted Date Phenytoin Anaphylaxis 06/16/2009 documented as of this encounter (statuses as of 10/20/2018) Medications End Date Status Medication Sig Dispensed Refills Start Date Active DEPAKOTE 500 MG ORAL TBEC None Entered 0 Active CITALOPRAM 40 MG ORAL TAB None Entered 0 Active TYLENOL-CODEINE #3 ORAL None Entered 0 11/02/2018 Active clindamycin 300 mg Take 1 56 capsule 0 capsuleIndications: capsule by 9 Syncope, unspecified mouth 4 syncope type (four) times daily for 14 days. Active HYDROcodone-acetaminophen Take 1 tablet 30 tablet 0 (NORCO) 10-325 mg by mouth 9 tabletIndications: every 6 (six) Syncope, unspecified hours as syncope type needed for Pain (scale 7-10). Active ketorolac 10 mg Take 1 tablet 30 tablet 0 tabletIndications: by mouth 9 Syncope, unspecified every 6 (six) syncope type hours as needed for Pain (scale 7-10). 10/20/2018 Discontinued clonidine HCl (CLONIDINE Take 0.2 mg 0 ORAL) by mouth. documented as of this encounter (statuses as of 10/20/2018) Active Problems Problem Noted Date Syncope 10/19/2018 Morbid obesity with body mass index of 40.0-49.9 10/19/2018 Alcohol intoxication 10/19/2018 Electrolyte abnormality 10/19/2018 Anemia 10/19/2018 Cirrhosis 10/19/2018 documented as of this encounter (statuses as of 10/20/2018) Social History Date Tobacco Use Types Packs/Day Years Used Never Assessed Sex Assigned at Date Recorded Not on file Industry Job Start Date Occupation Not on file Not on file Not on file Travel End Travel History Travel Start No recent travel history available. documented as of this encounter Last Filed Vital Signs Reading Time Taken Comments Vital Sign 156/112 10/20/2018 11:00 AM CDT rn notified Blood Pressure 114 10/20/2018 11:00 AM CDT Pulse 37.4 C (99.3 F) 10/20/2018 11:00 AM CDT Temperature 20 10/20/2018 11:00 AM CDT Respiratory Rate 97% 10/20/2018 11:00 AM CDT Oxygen Saturation - - Inhaled Oxygen Concentration 116.1 kg (256 lb) 10/18/2018 8:59 PM CDT Weight 167.6 cm (5' 6") 10/18/2018 8:59 PM CDT Height 41.32 10/18/2018 8:59 PM CDT Body Mass Index documented in this encounter Progress Notes * Margareth Park MD - 10/20/2018 9:48 AM CDT Internal Medicine Progress Note Date of Service: 10/20/2018 Chief Complaint: wants to go home, no acute events overnight. Review of System (ROS) General: (-) fever, (-) chills, (-) weight loss Skin: (-) rash HEENT: (-) headache, (-) change in hearing Neck: (-) mass Heme: (-) bleeding disorder Resp: (-) cough, (-) shortness of breath, (-) dyspnea on exertion Cardio: (-) chest pain, (-) palpitations GI: (-) abdominal pain, (-) nausea, (-) vomiting, (-) diarrhea, (-) constipation : (-) dysuria, (-) hematuria Endo: (-) heat intolerance, (-) diabetes, (-) cold intolerance, (-) polyuria Neuro: (-) numbness Back: (-)spasms MS: (+) joint pain Psych: (-) anxiety, (-) depression Vital Signs: Vitals: 10/19/18 2030 10/19/18 2339 10/20/18 0400 10/20/18 0700 BP: (!) 164/116 (!) 165/108 (!) 148/91 (!) 170/121 Pulse: 108 91 87 100 Resp: Temp: 37.3 C (99.2 F) 37 C (98.6 F) 36.1 C (96.9 F) 37.1 C (98.8 F) TempSrc: Tympanic Tympanic Tympanic Tympanic SpO2: 100% 97% 98% 98% Weight: Height: Physical Exam: General: alert and oriented x 4 (person, place, date/time and situation); no jane arent distress, well developed, well nourished HEENT: normocephalic atraumatic, pupils equal, round, reactive to light Neck: full range of motion Lungs: clear to auscultation bilaterally Cardio: S1, S2 normal; no murmurs, rubs or gallops, regular rate and rhythm Abdomen: soft; non-tender; non-distended; normoactive bowel sounds : not examined Rectal: not examined Extremities: no clubbing, cyanosis, or edema, left lower extremity with dressing in place Skin: no rashes Neuro: no focal deficits, alert and oriented x 3 Lab Data/Imaging: Recent Results (from the past 24 hour(s)) POCT GLUCOSE (AUTOMATED) Collection Time: 10/19/18 2:26 PM Result Value Ref Range POCT GLU 149 (H) 70 - 110 mg/dL POCT GLUCOSE (AUTOMATED) Collection Time: 10/19/18 6:15 PM Result Value Ref Range POCT GLU 149 (H) 70 - 110 mg/dL POCT GLUCOSE (AUTOMATED) Collection Time: 10/19/18 9:32 PM Result Value Ref Range POCT GLU 148 (H) 70 - 110 mg/dL Lipid Panel (Total Cholesterol, Triglycerides, HDL) - Fasting Collection Time: 10/20/18 4:09 AM Result Value Ref Range CHOL 241 (H) 120 - 200 mg/dL HDL 41 >40 mg/dL HDLC RATIO 5.9 (H) <=5.0 TRIG 789 (H) 30 - 170 mg/dL LDL CHOL <=160 mg/dL VLDL 5 - 60 mg/dL Basic Metabolic Panel (NA, K, CL, CO2, GLUCOSE, BUN, CREATININE, CA) Collection Time: 10/20/18 4:09 AM Result Value Ref Range NA 135 135 - 145 mmol/L K 3.8 3.5 - 5.0 mmol/L CL 94 (L) 98 - 108 mmol/L CO2 TOTAL 26 23 - 31 mmol/L AGAP 15 2 - 16 BUN 11 7 - 23 mg/dL GLUCOSE 155 (H) 70 - 110 mg/dL CREATININE 0.71 0.60 - 1.25 mg/dL CALCIUM 9.7 8.6 - 10.6 mg/dL eGFR Calculation (Non-) 124.2 mL/min/1.73m2 eGFR Calculation () 150.5 mL/min/1.73m2 Magnesium Serum Collection Time: 10/20/18 4:09 AM Result Value Ref Range MAGNESIUM 1.7 1.7 - 2.4 mg/dL CBC WITH DIFFERENTIAL Collection Time: 10/20/18 4:09 AM Result Value Ref Range WBC 5.27 4.20 - 10.70 10*3/L RBC 4.03 (L) 4.26 - 5.52 10*6/L HGB 9.9 (L) 12.2 - 16.4 g/dL HCT 31.3 (L) 38.4 - 49.3 % MCV 77.7 (L) 81.7 - 95.6 fL MCH 24.6 (L) 26.1 - 32.7 pg MCHC 31.6 31.2 - 35.0 g/dL RDW-SD 42.9 38.5 - 51.6 fL RDW-CV 15.3 12.1 - 15.4 % PLT 345 (H) 150 - 328 10*3/L MPV 8.2 (L) 9.8 - 13.0 fL NRBC/100 WBC 0.0 0.0 - 10.0 /100 WBCs NRBC x10^3 <0.01 10*3/L GRAN MAT (NEUT) % 54.5 % IMM GRAN % 0.20 % LYMPH % 28.1 % MONO % 10.6 % EOS % 5.5 % BASO % 1.1 % GRAN MAT x10^3(ANC) 2.87 1.99 - 6.95 10*3/uL IMM GRAN x10^3 <0.03 0.00 - 0.06 10*3/uL LYMPH x10^3 1.48 1.09 - 3.23 10*3/uL MONO x10^3 0.56 0.36 - 1.02 10*3/uL EOS x10^3 0.29 0.06 - 0.53 10*3/uL BASO x10^3 0.06 0.01 - 0.09 10*3/uL POCT GLUCOSE (AUTOMATED) Collection Time: 10/20/18 7:47 AM Result Value Ref Range POCT GLU 143 (H) 70 - 110 mg/dL Chest 1 View Result Date: 10/19/2018 Cardiomegaly. Underinflation of the lungs with pulmonary vascular crowding. Susp ected small left pleural effusion. Ct Cervical Spine W/o Contrast Result Date: 10/18/2018 No acute cervical spine traumatic injury. RL: 6200 AFC: [id number] Ct Head W/o Contrast Result Date: 10/18/2018 1. No acute intracranial abnormalities. RL: 6200 AFC: 75624 Assessment/Plan: 1. Acute alcohol intoxication - in setting of EtOH abuse, with daily 2 pints of vodka per patient's report. Admitted with dizziness and possible syncopal episo de. Most likely due to acute EtOH intoxication, CT head negative for intra cran ial process. On serax taper, patient has history of DT per report given by him. C/w telemetry monitoring. 2. Left leg fracture - had surgical intervention at [facility] and had superinfection with MRSA with removal of hardware. Now has dressing in place. Will need outpa tient orthopaedic follow up with his surgeon. Stable now. 3.HTN - on amlodipine 4. DVT ppx - Heparin 5. Full Code 6. Disposition - inpatient care Margareth Park MD * Dolores Solis MD - 10/19/2018 7:59 AM CDT MICU Progress Note Date of Service: 10/19/2018 07:59 Reason for ICU admission: pancreatitis Last 24 hour events (major events): Admitted to the Medicine Service Added Amlodipine 10 mg daily Subjective: C/o leg pain PHYSICAL EXAMINATION: Temp: [36.1 C (96.9 F)-37.5 C (99.5 F)] Heart Rate (monitor): [98] Pulse: [87-108] Resp: [18-22] BP: (148-178)/(91-128) MAP (mmHg): [133-140] Vitals: 10/19/18 2030 10/19/18 2339 10/20/18 0400 10/20/18 0700 BP: (!) 164/116 (!) 165/108 (!) 148/91 (!) 170/121 Pulse: 108 91 87 100 Resp: Temp: 37.3 C (99.2 F) 37 C (98.6 F) 36.1 C (96.9 F) 37.1 C (98.8 F) TempSrc: Tympanic Tympanic Tympanic Tympanic SpO2: 100% 97% 98% 98% Weight: Height: Constitutional: alert and oriented x 2 (person and place); no apparent distress HEENT: pupils equal, round, reactive to light; extraocular movements intact; johanna pharynx clear; moist mucous membranes Neck: supple, no lymphadenopathy, no bruits, no JVD Resp: clear to auscultation bilaterally Cardio: S1, S2 normal; no murmurs, rubs or gallops GI: soft; non-tender; non-distended; normoactive bowel sounds : not examined Rectal: not examined MSK: no clubbing, cyanosis, or edema Integ: no rashes Neuro: cranial nerves II through XII grossly intact; sensation grossly intact; m uscle strength 5 out of 5 in all four extremities Psych: anxious, disoriented Labs (pertinent only)/Imaging: Chest 1 View Result Date: 10/19/2018 Cardiomegaly. Underinflation of the lungs with pulmonary vascular crowding. Susp ected small left pleural effusion. Ct Cervical Spine W/o Contrast Result Date: 10/18/2018 No acute cervical spine traumatic injury. RL: 6200 AFC: 02165 Ct Head W/o Contrast Result Date: 10/18/2018 1. No acute intracranial abnormalities. RL: 6200 AFC: 30394 Microbiology: Assessment/Plan: Lesvia Russo is a 38 year old male admitted to the medicine service with the following critical problems: Altered mental status - due to acute toxic metabolic encephalopathy Alcohol intoxication Seizure disorder - ? Compliant to medications Remainder of the active problems during the current hospitalizations, are summar ized below: Patient Active Problem List Diagnosis Syncope Morbid obesity with body mass index of 40.0-49.9 Alcohol intoxication Electrolyte abnormality Anemia Cirrhosis PLAN: C//w Aggressive fluid resuscitation Replenish electrolyte deficiencies Banana bag Serax taper Resume antiepileptic medications Consult psychiatry inpatient Renally dose medications Will continue with aggressive supportive care Acute Care Inpatient Quality Metrics Checklist: Nutrition: Advance as tolerates Pain: Tylenol for minimal pain, [place] 5 for moderate and Morphine for severe / breakthrough pain Sedation: N/A Ulcer prophylaxis: Pepcid DVT / PE prophylaxis: SCD / Heparin Mobility: As tolerates Vascular access: PIVs Park: Not required at this juncture Code status: Full Fall risk: High Restraint: Not required at this juncture Next of kin: TBD Prognosis: Serious Medications: All medications were reviewed in details and required changes wer e made. Disposition: Med/Surg acute floor bed - Telemetry Dolores Solis M.D., M.Ed., M.Sc. [facility] documented in this encounter Plan of Treatment Order Schedule Name Type Priority Associated Diagnoses ONCE for 1 Occurrences starting 10/18/2018 until 10/18/2018 EKG-12 LEAD ROUTINE HEART STATION STAT Health Maintenance Due Date Last Done Comments VARICELLA VACCINES (1 of 1993 2 - 13+ 2-dose series) DTaP,Tdap,and Td Vaccines 06/24/1999 (1 - Tdap) INFLUENZA VACCINE (#1) 2018 PNEUMOCOCCAL 0-64 YEARS Aged Out No longer eligible based COMBINED SERIES on patient's age to complete this topic documented as of this encounter Procedures Comments Procedure Name Priority Date/Time Associated Diagnosis POCT GLUCOSE (AUTOMATED) Routine 10/20/2018 7:47 AM CDT LOW-DENSITY LIPOPROTEIN, Routine 10/20/2018 DIRECT 4:09 AM CDT CBC WITH DIFFERENTIAL Routine 10/20/2018 4:09 AM CDT CBC WITH DIFF Routine 10/20/2018 4:09 AM CDT LIPID PANEL (64061)(TOTAL Routine 10/20/2018 CHOLESTEROL, 4:09 AM CDT TRIGLYCERIDES, HDL) BASIC METABOLIC PANEL Routine 10/20/2018 (NA, K, CL, CO2, GLUCOSE, 4:09 AM CDT BUN, CREATININE, CA) MAGNESIUM Routine 10/20/2018 4:09 AM CDT POCT GLUCOSE (AUTOMATED) Routine 10/19/2018 9:32 PM CDT POCT GLUCOSE (AUTOMATED) Routine 10/19/2018 6:15 PM CDT POCT GLUCOSE (AUTOMATED) Routine 10/19/2018 2:26 PM CDT POCT GLUCOSE (AUTOMATED) Routine 10/19/2018 7:42 AM CDT ACTIVATED PARTIAL BILLY 10/19/2018 THRMPLAS CARYN 4:15 AM CDT PROTHROMBIN TIME / INR BILLY 10/19/2018 4:15 AM CDT GLYCOSYLATED HEMOGLOBIN Routine 10/19/2018 (A1C) 4:15 AM CDT BASIC METABOLIC PANEL BILLY 10/19/2018 (NA, K, CL, CO2, GLUCOSE, 4:15 AM CDT BUN, CREATININE, CA) HEPATIC FUNCTION PANEL BILLY 10/19/2018 (19258) (ALB,T.PRO,BILI 4:15 AM CDT T,BU/BC,ALT,AST,ALK PHOS) C-REACTIVE PROTEIN Routine 10/19/2018 4:15 AM CDT PHOSPHORUS Routine 10/19/2018 4:15 AM CDT CBC WITH DIFFERENTIAL BILLY 10/19/2018 4:14 AM CDT CBC WITH DIFF BILLY 10/19/2018 4:14 AM CDT URINALYSIS STAT 10/19/2018 Injury of head, initial 12:47 AM CDT encounter GALV/CLC ONLY - URINE STAT 10/19/2018 Injury of head, initial DRUG (IMMUNOASSAY) - 4 ER 12:47 AM CDT encounter PANEL CT CERVICAL SPINE WO STAT 10/18/2018 Injury of head, initial CONTRAST 10:[address] HEAD WO CONTRAST STAT 10/18/2018 Injury of head, initial 10:48 PM CDT encounter XR CHEST 1 VW STAT 10/18/2018 Injury of head, initial 10:46 PM CDT encounter CBC WITH DIFFERENTIAL STAT 10/18/2018 Injury of head, initial 9:31 PM CDT encounter ACTIVATED PARTIAL STAT 10/18/2018 Injury of head, initial THRMPLAS CARYN 9:31 PM CDT encounter PROTHROMBIN TIME / INR STAT 10/18/2018 Injury of head, initial 9:31 PM CDT encounter CBC WITH DIFF Routine 10/18/2018 Injury of head, initial 9:31 PM CDT encounter ETHANOL STAT 10/18/2018 Injury of head, initial 9:31 PM CDT encounter BASIC METABOLIC PANEL STAT 10/18/2018 Injury of head, initial (NA, K, CL, CO2, GLUCOSE, 9:31 PM CDT encounter BUN, CREATININE, CA) HEPATIC FUNCTION PANEL STAT 10/18/2018 Injury of head, initial (83377) (ALB,T.PRO,BILI 9:31 PM CDT encounter T,BU/BC,ALT,AST,ALK PHOS) TROPONIN I STAT 10/18/2018 Injury of head, initial 9:31 PM CDT encounter documented in this encounter Results * POCT GLUCOSE (AUTOMATED) (10/20/2018 7:47 AM CDT) Pathologist [facility] POCT GLU 143 (H) 70 - 110 mg/dL [facility] Specimen Blood Performing Organization Address City/[facility]/Zipcode Phone Number [facility] CLIA: [id number], [address] [place] [address] St * LOW-DENSITY LIPOPROTEIN, DIRECT (10/20/2018 4:09 AM CDT) Pathologist [facility] dLDL Chol 128 <130 mg/dL [facility] SERVICES Specimen Blood - ARM, RIGHT Performing Organization Address City/State/Zipcode Phone Number [facility] SERVICES CLIA: [id number], [address] [place] [address] * CBC WITH DIFFERENTIAL (10/20/2018 4:09 AM CDT) Pathologist [facility] WBC 5.27 4.20 - 10.70 [facility] 10*3/L [facility] RBC 4.03 (L) 4.26 - 5.52 10*6/L [facility] HGB 9.9 (L) 12.2 - 16.4 g/dL [facility] HCT 31.3 (L) 38.4 - 49.3 % [facility] MCV 77.7 (L) 81.7 - 95.6 fL [facility] MCH 24.6 (L) 26.1 - 32.7 pg [facility] MCHC 31.6 31.2 - 35.0 g/dL [facility] RDW-SD 42.9 38.5 - 51.6 fL [facility] RDW-CV 15.3 12.1 - 15.4 % [facility] PLT 345 (H) 150 - 328 10*3/L [facility] MPV 8.2 (L) 9.8 - 13.0 fL [facility] NRBC/100 WBC 0.0 0.0 - 10.0 /100 WBCs [facility] NRBC x10^3 <0.01 10*3/L [facility] GRAN MAT (NEUT) 54.5 % [facility] % [facility] IMM GRAN % 0.20 % [facility] LYMPH % 28.1 % [facility] MONO % 10.6 % [facility] EOS % 5.5 % [facility] BASO % 1.1 % [facility] GRAN MAT 2.87 1.99 - 6.95 10*3/uL [facility] x10^3(ANC) [facility] IMM GRAN x10^3 <0.03 0.00 - 0.06 10*3/uL [facility] LYMPH x10^3 1.48 1.09 - 3.23 10*3/uL [facility] MONO x10^3 0.56 0.36 - 1.02 10*3/uL [facility] EOS x10^3 0.29 0.06 - 0.53 10*3/uL [facility] BASO x10^3 0.06 0.01 - 0.09 10*3/uL [facility] Specimen Blood - ARM, RIGHT Performing Organization Address [facility] Phone Number [facility] CLIA: [id number], [address] [place] [address] [facility] * Lipid Panel (Total Cholesterol, Triglycerides, HDL) - Fasting (10/20/2018 4:09 AM CDT) CHOL 241 (H) 120 - 200 mg/dL [facility] HDL 41 >40 mg/dL [facility] HDLC RATIO 5.9 (H) <=5.0 [facility] TRIG 789 (H) 30 - 170 mg/dL [facility] LDL CHOL Comment: Unable to calculate <=160 mg/dL [facility] LDL due to elevated [facility] triglyceride level [facility] than 400 mg/dL. VLDL Comment: Unable to calculate 5 - 60 mg/dL [facility] VLDL due to elevated [facility] triglyceride level greater [facility] than 710 mg/dL. Specimen Blood - ARM, RIGHT Performing Organization Address [facility] Phone Number [facility] CLIA: [id number], [address] [place] [address] [facility] * Magnesium Serum (10/20/2018 4:09 AM CDT) MAGNESIUM 1.7 1.7 - 2.4 mg/dL [facility] Specimen Blood - ARM, RIGHT Performing Organization Address [facility] Phone Number [facility] CLIA: [id number], [address] [place] [address] [facility] * Basic Metabolic Panel (NA, K, CL, CO2, GLUCOSE, BUN, CREATININE, CA) (10/20/2018 4:09 AM CDT) NA 135 135 - 145 mmol/L [facility] K 3.8 3.5 - 5.0 mmol/L [facility] CL 94 (L) 98 - 108 mmol/L [facility] CO2 TOTAL 26 23 - 31 mmol/L [facility] AGAP 15 2 - 16 [facility] BUN 11 7 - 23 mg/dL [facility] GLUCOSE 155 (H) 70 - 110 mg/dL [facility] CREATININE 0.71 0.60 - 1.25 mg/dL [facility] CALCIUM 9.7 8.6 - 10.6 mg/dL [facility] eGFR 124.2 mL/min/1.73m2 [facility] Calculation SERVICES-CLEAR (Non-[facility]) eGFR 150.5 mL/min/1.73m2 [facility] Calculation SERVICES-CLEAR ([facility]) Specimen Blood - ARM, RIGHT Narrative Performed At Association of Glomerular Filtration Rate (GFR) and Staging of Kidney Disease* [facility] + + + + [facility] | GFR (mL/min/1.73 m2)| With Kidney Damage|Without Kidney Damage CAMPUS + + + + |>90|Stage one| Normal + + + + |60-89|Stage two| Decreased GFR + + + + |30-59|Stage three| Stage three + + + + |15-29|Stage four | Stage four + + + + |<15 (or dialysis)|Stage five | Stage five + + + + *Each stage assumes the associated GFR level has been in effect for at least three months.Stages 1 to 5, with or without kidney disease, indicate chronic kidney disease. Notes: Determination of stages one and two (with eGFR >59mL/min/1.73 m2) requires estimation of kidney damage for at least three months as defined by structural or functional abnormalities of the kidney, manifested by either: Pathological abnormalities or Markers of kidney damage (including abnormalities in the composition of the blood or urine or abnormalities in imaging tests). Performing Organization Address City/[facility]/Zipcode Phone Number [facility] CLIA: [id number], [address] [place] [address] SERVICES-[facility] * POCT GLUCOSE (AUTOMATED) (10/19/2018 9:32 PM CDT) [facility] POCT GLU 148 (H) 70 - 110 mg/dL [facility] Specimen Blood Performing Organization Address [facility]/Zipcode Phone Number [facility] CLIA: [id number], [address] [place] [address] St * POCT GLUCOSE (AUTOMATED) (10/19/2018 6:15 PM CDT) POCT GLU 149 (H) 70 - 110 mg/dL [facility] Specimen Blood Performing Organization Address City/[facility]/Zipcode Phone Number [facility] CLIA: [id number], [address] [place] [address] St * POCT GLUCOSE (AUTOMATED) (10/19/2018 2:26 PM CDT) POCT GLU 149 (H) 70 - 110 mg/dL [facility] Specimen Blood Performing Organization Address City/[facility]/Zipcode Phone Number [facility] CLIA: [id number], [address] [place] [address] St * POCT GLUCOSE (AUTOMATED) (10/19/2018 7:42 AM CDT) POCT GLU 166 (H) 70 - 110 mg/dL [facility] Specimen Blood Performing Organization Address City/[facility]/Zipcode Phone Number [facility] CLIA: [id number], [address] [place] [address] St * C-REACTIVE PROTEIN (10/19/2018 4:15 AM CDT) CRP 0.2 <0.8 mg/dL [facility] Specimen Blood - LINE, VENOUS Performing Organization Address City/[facility]/Zipcode Phone Number [facility] CLIA: [id number], [address] [place] [address] [facility] * Glycosylated Hemoglobin (A1C) (10/19/2018 4:15 AM CDT) HGB A1C 6.9 (H) 4.0 - 6.0 % NGSP [facility] SERVICES-[facility] Specimen Blood - LINE, VENOUS Performing Organization Address City/[facility]/Zipcode Phone Number [facility] CLIA: [id number], [address] [place] [address] [facility] * aPTT (10/19/2018 4:15 AM CDT) APTT Patient 30 26 - 36 Seconds [facility] Specimen Blood - LINE, VENOUS Performing Organization Address City/State/Zipcode Phone Number [facility] CLIA: [id number], [address] [place] [address] [facility] * Prothrombin Time / INR (10/19/2018 4:15 AM CDT) PROTIME PATIENT 11.9 10.1 - 12.6 Seconds [facility] INR 1.1Comment: Normal INR <1.1; [facility] Warfarin Therapeutic range 2.0 [facility] to 3.0 or 2.5 to 3.5[facility] depending upon the indications. Specimen Blood - LINE, VENOUS Performing Organization Address [facility] Phone Number [facility] CLIA: [id number], [address] [place] [address] [facility] * Phosphorus Serum (10/19/2018 4:15 AM CDT) PHOSPHORUS 4.7 2.5 - 5.0 mg/dL [facility] Specimen Blood - LINE, VENOUS Performing Organization Address [facility] Hospital[facility] Phone Number [facility] CLIA: [id number], [address] [place] [address] [facility] * HEPATIC FUNCTION PANEL (65099) (ALB,T.PRO,BILI T,BU/BC,ALT,AST,ALK PHOS) (10/19/2018 4:15 AM CDT) TOTAL BILI 0.3 0.1 - 1.1 mg/dL [facility] BILI UNCON 0.1 0.1 - 1.1 mg/dL [facility] BILI CONJ 0.0 0.0 - 0.3 mg/dL [facility] T PROTEIN 7.7 6.3 - 8.2 g/dL [facility] ALBUMIN 4.2 3.5 - 5.0 g/dL [facility] ALK PHOS 101 34 - 122 U/L [facility] ALT(SGPT) 39 9 - 51 U/L [facility] AST(SGOT) 43 (H) 13 - 40 U/L [facility] Specimen Blood - LINE, VENOUS Performing Organization Address City/State/Zipcode Phone Number [facility] CLIA: [id number], [address] [place], [place] [address] [facility] * BASIC METABOLIC PANEL (NA, K, CL, CO2, GLUCOSE, BUN, CREATININE, CA) (10/19/2018 4:15 AM CDT) NA 141 135 - 145 mmol/L [facility] K 4.3 3.5 - 5.0 mmol/L [facility] CL 105 98 - 108 mmol/L [facility] CO2 TOTAL 24 23 - 31 mmol/L [facility] AGAP 12 2 - 16 [facility] BUN 10 7 - 23 mg/dL [facility] GLUCOSE 148 (H) 70 - 110 mg/dL [facility] CREATININE 0.56 (L) 0.60 - 1.25 mg/dL [facility] CALCIUM 8.4 (L) 8.6 - 10.6 mg/dL [facility] eGFR 163.3 mL/min/1.73m2 [facility] Calculation [facility] (Non-[facility]) eGFR 197.9 mL/min/1.73m2 [facility] Calculation [facility] ([facility]) Specimen Blood - LINE, VENOUS Narrative Performed At Association of Glomerular Filtration Rate (GFR) and Staging of Kidney Disease* [facility] + + + + [facility] | GFR (mL/min/1.73 m2)| With Kidney Damage|Without Kidney Damage CAMPUS + + + + |>90|Stage one| Normal + + + + |60-89|Stage two| Decreased GFR + + + + |30-59|Stage three| Stage three + + + + |15-29|Stage four | Stage four + + + + |<15 (or dialysis)|Stage five | Stage five + + + + *Each stage assumes the associated GFR level has been in effect for at least three months.Stages 1 to 5, with or without kidney disease, indicate chronic kidney disease. Notes: Determination of stages one and two (with eGFR >59mL/min/1.73 m2) requires estimation of kidney damage for at least three months as defined by structural or functional abnormalities of the kidney, manifested by either: Pathological abnormalities or Markers of kidney damage (including abnormalities in the composition of the blood or urine or abnormalities in imaging tests). Performing Organization Address City/State/Zipcode Phone Number [facility] CLIA: [id number], [address] [place] [address] [facility] * CBC WITH DIFFERENTIAL (10/19/2018 4:14 AM CDT) WBC 5.10 4.20 - 10.70 [facility] 10*3/L [facility] RBC 3.57 (L) 4.26 - 5.52 10*6/L [facility] HGB 8.9 (L) 12.2 - 16.4 g/dL [facility] HCT 27.7 (L) 38.4 - 49.3 % [facility] MCV 77.6 (L) 81.7 - 95.6 fL [facility] MCH 24.9 (L) 26.1 - 32.7 pg [facility] MCHC 32.1 31.2 - 35.0 g/dL [facility] RDW-SD 43.8 38.5 - 51.6 fL [facility] RDW-CV 15.5 (H) 12.1 - 15.4 % [facility] PLT 387 (H) 150 - 328 10*3/L [facility] MPV 8.1 (L) 9.8 - 13.0 fL [facility] NRBC/100 WBC 0.0 0.0 - 10.0 /100 WBCs [facility] NRBC x10^3 <0.01 10*3/L [facility] GRAN MAT (NEUT) 44.3 % [facility] % [facility] IMM GRAN % 0.40 % [facility] SERVICES-[facility] LYMPH % 39.0 % [facility] SERVICES-[facility] MONO % 10.0 % [facility] EOS % 4.9 % [facility] SERVICES-[facility] BASO % 1.4 % [facility] GRAN MAT 2.26 1.99 - 6.95 10*3/uL [facility] x10^3(ANC) [facility] IMM GRAN x10^3 <0.03 0.00 - 0.06 10*3/uL [facility] SERVICES-[facility] LYMPH x10^3 1.99 1.09 - 3.23 10*3/uL [facility] SERVICES-[facility] MONO x10^3 0.51 0.36 - 1.02 10*3/uL [facility] EOS x10^3 0.25 0.06 - 0.53 10*3/uL [facility] SERVICES-[facility] BASO x10^3 0.07 0.01 - 0.09 10*3/uL [facility] Specimen Blood - LINE, VENOUS Performing Organization Address City/State/Zipcode Phone Number [facility] CLIA: [id number], [address] [place] [address] [facility] * Urinalysis (10/19/2018 12:47 AM CDT) APPEARANCE Clear Clear [facility] COLOR Yellow Yellow [facility] PH 5.0 4.8 - 8.0 [facility] SP GRAVITY 1.018 1.003 - 1.030 [facility] SERVICES[facility] GLU U QUAL Normal Normal [facility] BLOOD Negative Negative [facility] KETONES Negative Negative [facility] PROTEIN 100 mg/dL (A) Negative [facility] UROBILIN Normal Normal [facility] BILIRUBIN Negative Negative [facility] NITRITE Negative Negative [facility] LEUK RICHELLE Negative Negative [facility] RBC/HPF <1 0 - 3 HPF [facility] WBC/HPF 1 0 - 5 HPF [facility] BACTERIA Negative Negative [facility] MUCOUS Slight (A) Negative LPF [facility] SQ EPITH <1 <=2 HPF [facility] Specimen Urine - URINE, CLEAN CATCH Performing Organization Address [facility] Hospitalcomt Phone Number [facility] CLIA: [id number], [address] [place] [address] [facility] * Drug Screen ER (10/19/2018 12:47 AM CDT) AMPHET Negative Negative [facility] Cocaine Negative Negative [facility] Metabolite [facility] OPIATES Negative [facility] THC Negative Negative [facility] Specimen Urine - URINE, CLEAN CATCH Narrative Performed At Urine Drug Cutoff Ranges [facility] Amphetamine: 1,000 ng/mL [facility] Cocaine: 150 ng/mL [facility] Opiates: 300 ng/mL Cannabinoids:50 ng/mL The results are to be used only for medical (i.e., treatment) purposes. Unconfirmed screening results must not be used for non-medical purposes (e.g., employment testing, legal testing). Performing Organization Address City/[facility] Hospital[facility]t Phone Number [facility] CLIA: [id number], [address] [place] [address] [facility] * CT Cervical Spine W/O Contrast (10/18/2018 10:48 PM CDT) Specimen Impressions Performed At No acute cervical spine traumatic injury. PACS/VR/DOSE RL: [id number] AFC: [id number] Narrative Performed At Patient name: [facility]IA [facility] PACS/VR/DOSE : 1980 38 years EXAMINATION: CT CERVICAL SPINE WO CONTRAST Ordering Physician: SONIYA DIEGO CLINICAL HISTORY: Neck pain after trauma COMPARISON: None TECHNIQUE: Helical CT images of the cervical spine were performed without the administration of IV contrast. Coronal and sagittal reconstruction was performed. CT performed using ALARA (As Low As Reasonably Achievable).. FINDINGS: Normal cervical curvature identified. No fracture or subluxation is identified. No prevertebral edema. The lateral masses are aligned. No osseous lesion seen. Disc heights are maintained. No spinal canal stenosis. No epidural hemorrhage. No severe spinal canal stenosis. Visualized lung apices are clear. Thyroid gland is normal. No neck mass. Procedure Note [facility], Radiant Results Inft User - 10/18/2018 11:19 PM CDT Patient name: LESVIA RUSSO : 1980 38 years EXAMINATION: CT CERVICAL SPINE WO CONTRAST Ordering Physician: SONIYA DIEGO CLINICAL HISTORY: Neck pain after trauma COMPARISON: None TECHNIQUE: Helical CT images of the cervical spine were performed without the administration of IV contrast. Coronal and sagittal reconstruction was performed. CT performed using ALARA (As Low As Reasonably Achievable).. FINDINGS: Normal cervical curvature identified. No fracture or subluxation is identified. No prevertebral edema. The lateral masses are aligned. No osseous lesion seen. Disc heights are maintained. No spinal canal stenosis. No epidural hemorrhage. No severe spinal canal stenosis. Visualized lung apices are clear. Thyroid gland is normal. No neck mass. IMPRESSION No acute cervical spine traumatic injury. RL: [id number] AFC: [id number] Performing Organization Address City/State/Zipcode Phone Number PACS/VR/DOSE * CT Head W/O Contrast (10/18/2018 10:48 PM CDT) Specimen Impressions Performed At 1.No acute intracranial abnormalities. PACS/VR/DOSE RL:[id number] AFC: [id number] Narrative Performed At CLINICAL HISTORY:Syncope, simple, normal neuro exam PACS/VR/DOSE COMPARISON:none Ordering Physician:SONIYA DIEGO TECHNIQUE: CT scan of the head performed. Contiguous axial CT images were obtained from the skull base through the vertex without administration of intravenous contrast. Study was interpreted and a report was generated within 1 hour of the acquisition of the images. CT done according to ALARA. FINDINGS: There is no mass effect or midline shift.There is no evidence of intraparenchymal hemorrhage or extra-axial collections.Ventricles and sulci are age-appropriate.No focal hypodensities to suggest trans cortical infarct. Paranasal sinuses and mastoid air cells are normally aerated. Procedure Note [facility], Radiant Results Inft User - 10/18/2018 11:20 PM CDT CLINICAL HISTORY: Syncope, simple, normal neuro exam COMPARISON: none Ordering Physician: [facility] BADAWY TECHNIQUE: CT scan of the head performed. Contiguous axial CT images were obtained from the skull base through the vertex without administration of intravenous contrast. Study was interpreted and a report was generated within 1 hour of the acquisition of the images. CT done according to ALARA. FINDINGS: There is no mass effect or midline shift. There is no evidence of intraparenchymal hemorrhage or extra-axial collections. Ventricles and sulci are age-appropriate. No focal hypodensities to suggest trans cortical infarct. Paranasal sinuses and mastoid air cells are normally aerated. IMPRESSION 1. No acute intracranial abnormalities. RL: [id number] AFC: [id number] Performing Organization Address [facility] Phone Number PACS/VR/DOSE * Chest 1 View (10/18/2018 10:46 PM CDT) Specimen Impressions Performed At Cardiomegaly. PACS/VR/DOSE Underinflation of the lungs with pulmonary vascular crowding. Suspected small left pleural effusion. Narrative Performed At * * * * * * * * ORIGINAL REPORT * * * * * * * * PACS/VR/DOSE PROCEDURE: XR CHEST 1 VW CLINICAL INDICATION: syncope COMPARISON: None FINDINGS: The lungs are underinflated with pulmonary vascular crowding. Small left pleural effusion is suspected. No pneumothorax is seen. The heart is increased in size. No acute bony abnormality. Procedure Note [facility], Radiant Results Inft User - 10/19/2018 12:02 AM CDT * * * * * * * * ORIGINAL REPORT * * * * * * * * PROCEDURE: XR CHEST 1 VW CLINICAL INDICATION: syncope COMPARISON: None FINDINGS: The lungs are underinflated with pulmonary vascular crowding. Small left pleural effusion is suspected. No pneumothorax is seen. The heart is increased in size. No acute bony abnormality. IMPRESSION Cardiomegaly. Underinflation of the lungs with pulmonary vascular crowding. Suspected small left pleural effusion. Performing Organization Address [facility] Phone Number PACS/VR/DOSE * CBC WITH DIFFERENTIAL (10/18/2018 9:31 PM CDT) WBC 5.77 4.20 - 10.70 [facility] 10*3/L [facility] RBC 3.51 (L) 4.26 - 5.52 10*6/L [facility] SERVICES-[facility] HGB 8.8 (L) 12.2 - 16.4 g/dL [facility] HCT 27.5 (L) 38.4 - 49.3 % [facility] MCV 78.3 (L) 81.7 - 95.6 fL [facility] MCH 25.1 (L) 26.1 - 32.7 pg [facility] MCHC 32.0 31.2 - 35.0 g/dL [facility] RDW-SD 44.3 38.5 - 51.6 fL [facility] RDW-CV 15.6 (H) 12.1 - 15.4 % [facility] PLT 413 (H) 150 - 328 10*3/L [facility] MPV 8.3 (L) 9.8 - 13.0 fL [facility] NRBC/100 WBC 0.0 0.0 - 10.0 /100 WBCs [facility] NRBC x10^3 <0.01 10*3/L [facility] GRAN MAT (NEUT) 46.6 % [facility] % [facility] IMM GRAN % 0.30 % [facility] LYMPH % 37.1 % [facility] MONO % 9.9 % [facility] EOS % 4.5 % [facility] BASO % 1.6 % [facility] GRAN MAT 2.69 1.99 - 6.95 10*3/uL [facility] x10^3(ANC) [facility] IMM GRAN x10^3 <0.03 0.00 - 0.06 10*3/uL [facility] LYMPH x10^3 2.14 1.09 - 3.23 10*3/uL [facility] MONO x10^3 0.57 0.36 - 1.02 10*3/uL [facility] EOS x10^3 0.26 0.06 - 0.53 10*3/uL [facility] BASO x10^3 0.09 0.01 - 0.09 10*3/uL [facility] Specimen Blood - VENOUS Performing Organization Address City/State/Zipcode Phone Number [facility] CLIA: [id number], [address] [place] [address] [facility] * Ethanol Level (10/18/2018 9:31 PM CDT) ALCOHOL 366 mg/dL [facility] Specimen Blood - VENOUS Narrative Performed At Toxic Greater than or equal to 80 mg/dL. [facility] NOTE: Whole blood values are approximately 10% to 15% lower than serum and [facility] plasma. CAMPUS Performing Organization Address City/State/Zipcode Phone Number [facility] CLIA: [id number], [address] [place], [place] [address] [facility] * Prothrombin Time (PT) / INR (10/18/2018 9:31 PM CDT) PROTIME PATIENT 11.7 10.1 - 12.6 Seconds [facility] INR 1.1Comment: Normal INR <1.1; [facility] Warfarin Therapeutic range 2.0 [facility] to 3.0 or 2.5 to 3.5, [facility] depending upon the indications. Specimen Blood - VENOUS Performing Organization Address City/[facility]/Zipcode Phone Number [facility] CLIA: [id number], [address] [place] [address] [facility] * aPTT (10/18/2018 9:31 PM CDT) APTT Patient 29 26 - 36 Seconds [facility] Specimen Blood - VENOUS Performing Organization Address City/State/Zipcode Phone Number [facility] CLIA: [id number], [address] [place] [address] [facility] * Troponin I (10/18/2018 9:31 PM CDT) TROPONIN I 0.003 <=0.034 ng/mL [facility] Specimen Blood - VENOUS Narrative Performed At Equal or Less than 0.034 ng/ml---Normal [facility] Note: Cardiac troponin begins to rise 3-4 hours after the onset of ischemia. [facility] Repeat in 4-6 hours if the sample was drawn within 3-4 hours of the onset of the CAMPUS symptom and found normal. Between 0.035 and 0.120 ng/mL--- Borderline. Questionable myocardial injury or necrosis Note: Serial measurement may be necessary to confirm or exclude the diagnosis of myocardial injury or necrosis; Clinical correlation (symptoms, EKGs, imaging studies, and others) required; Repeat in 4-6 hours if clinically indicated. Equal or Higher than 0.121 ng/mL---Abnormal. Myocardial Injury or Necrosis Likely Biotin has been reported to cause a negative bias, interpret results relative to patient's use of biotin. Performing Organization Address [facility] Phone Number [facility] CLIA: [id number], [address] [place] [address] [facility] * Hepatic Function Panel (ALB, T.PRO, BILI T, BU/BC, ALT, AST, ALK PHOS) (10/18/2018 9:31 PM CDT) TOTAL BILI 0.2 0.1 - 1.1 mg/dL [facility] BILI UNCON 0.1 0.1 - 1.1 mg/dL [facility] BILI CONJ 0.0 0.0 - 0.3 mg/dL [facility] T PROTEIN 7.5 6.3 - 8.2 g/dL [facility] ALBUMIN 4.2 3.5 - 5.0 g/dL [facility] ALK PHOS 113 34 - 122 U/L [facility] ALT(SGPT) 41 9 - 51 U/L [facility] AST(SGOT) 38 13 - 40 U/L [facility] Specimen Blood - VENOUS Performing Organization Address [facility]/Zipcode Phone Number [facility] CLIA: [id number], [address] [place] [address] [facility] * Basic Metabolic Panel (NA, K, CL, CO2, GLUCOSE, BUN, CREATININE, CA) (10/18/2018 9:31 PM CDT) NA 141 135 - 145 mmol/L [facility] K 4.2 3.5 - 5.0 mmol/L [facility] CL 105 98 - 108 mmol/L [place] [facility] CO2 TOTAL 21 (L) 23 - 31 mmol/L [facility] AGAP 15 2 - 16 [facility] BUN 9 7 - 23 mg/dL [facility] GLUCOSE 208 (H) 70 - 110 mg/dL [facility] CREATININE 0.75 0.60 - 1.25 mg/dL [facility] CALCIUM 8.6 8.6 - 10.6 mg/dL [facility] eGFR 116.6 mL/min/1.73m2 [facility] Calculation [facility] ([facility]) eGFR 141.3 mL/min/1.73m2 [facility] Calculation [facility] ([facility]) Specimen Blood - VENOUS Narrative Performed At Association of Glomerular Filtration Rate (GFR) and Staging of Kidney Disease* [facility] + + + + [facility] | GFR (mL/min/1.73 m2)| With Kidney Damage|Without Kidney Damage CAMPUS + + + + |>90|Stage one| Normal + + + + |60-89|Stage two| Decreased GFR + + + + |30-59|Stage three| Stage three + + + + |15-29|Stage four | Stage four + + + + |<15 (or dialysis)|Stage five | Stage five + + + + *Each stage assumes the associated GFR level has been in effect for at least three months.Stages 1 to 5, with or without kidney disease, indicate chronic kidney disease. Notes: Determination of stages one and two (with eGFR >59mL/min/1.73 m2) requires estimation of kidney damage for at least three months as defined by structural or functional abnormalities of the kidney, manifested by either: Pathological abnormalities or Markers of kidney damage (including abnormalities in the composition of the blood or urine or abnormalities in imaging tests). Performing Organization Address City/State/Zipcode Phone Number [facility] CLIA: [id number], [address] [place] [address] [facility] [address] [facility] documented in this encounter Visit Diagnoses Diagnosis Syncope, unspecified syncope type - Primary Injury of head, initial encounter Tachycardia Tachycardia, unspecified documented in this encounter Administered Medications Action Date Dose Rate Site Medication Order MAR Action acetaminophen (TYLENOL) tablet 650 mg 650 mg, Oral, Q6HPRN, Starting 10/19/18 at 0130, Until Discontinued, Routine, Pain (scale 1-3) 10/20/2018 7:45 AM CDT 1 tablet acetaminophen-codeine (TYLENOL #3) Given 300-30 mg tablet 1 tablet 1 tablet, Oral, Q6HPRN, Starting 10/19/18 at 0130, Until 10/21/18 at 0129, Routine, Pain (scale 4-6) 1 tablet Given 10/19/2018 11:27 PM CDT 1 tablet Given 10/19/2018 5:36 PM CDT 10/20/2018 7:45 AM CDT 10 mg amLODIPine (NORVASC) tablet 10 mg Given 10 mg, Oral, DAILY, First dose on 10/19/18 at 1100, Until Discontinued, Routine 10 mg Given 10/19/2018 11:01 AM CDT bisacodyl (DULCOLAX) tablet 10 mg 10 mg, Oral, QDAILYPRN, Starting 10/19/18 at 0151, Until Discontinued, Routine, Constipation dextrose 50 % in water (D50W) injection 25 mL 25 mL, Slow IV Push, PRN, Starting 10/19/18 at 0130, Until Discontinued, BILLY, Blood Glucose < or=70 mg/dL and patient is unable to swallow or has mental status changes. 10/20/2018 7:45 AM CDT 100 mg docusate (COLACE) capsule 100 mg Given 100 mg, Oral, DAILY, First dose on 10/19/18 at 0900, Until Discontinued, Routine 100 mg Given 10/19/2018 9:21 AM CDT 10/20/2018 7:44 AM CDT 1 mg foLIC acid (FOLATE) tablet 1 mg Given 1 mg, Oral, DAILY, First dose on 10/19/18 at 0900, Until Discontinued, Routine 1 mg Given 10/19/2018 9:21 AM CDT glucagon (GLUCAGEN DIAGNOSTIC KIT) injection 1 mg 1 mg, Intramuscular, PRN, Starting 10/19/18 at 0130, Until Discontinued, BILLY, Blood Glucose < or=70 mg/dL and patient is unable to swallow or has mental changes. 10/19/2018 8:06 PM CDT 5,000 Units Abdomen-SC heparin injection 5,000 Units Given 5,000 Units, Subcutaneous, Q12H, First dose on [place] 10/19/18 at 0800, Until Discontinued, Routine 5,000 Units Abdomen-SC Given 10/19/2018 9:26 AM CDT 10/19/2018 3:21 AM CDT 1,000 mL 150 mL/hr lactated ringers IV infusion 1,000 mL New Bag at 150 mL/hr, 1,000 mL, IV Infusion, CONTINUOUS, Starting [place] 10/19/18 at 0245, Until Discontinued, Routine 10/20/2018 7:45 AM CDT 500 mg levETIRAcetam (KEPPRA) tablet 500 mg Given 500 mg, Oral, BID, First dose on [place] 10/19/18 at 0015, Until Discontinued, Routine 500 mg Given 10/19/2018 8:05 PM CDT 500 mg Given 10/19/2018 9:21 AM CDT 10/20/2018 5:21 AM CDT 2 mg morpHINE injection 2 mg Given 2 mg, Slow IV Push, Q4HPRN, Starting Sat10/20/18 at 0458, Until Sat10/21/18 at 0457, Routine, Pain (scale 7-10) 10/19/2018 6:32 PM CDT 4 mg ondansetron (ZOFRAN (PF)) injection 4 mg Given 4 mg, Slow IV Push, Q6HPRN, Starting [place] 10/19/18 at 0131, Until Discontinued, Routine, Nausea and Vomiting (N/V) 10/20/2018 5:21 AM CDT 15 mg oxazepam (SERAX) capsule 15 mg Given 15 mg, Oral, Q8H, 3 doses, First dose on Sat10/20/18 at 0600, Last dose on Sat10/20/18 at 2200, Routine oxazepam (SERAX) capsule 15 mg 15 mg, Oral, Q12H, 2 doses, First dose on Sat10/21/18 at 0800, Last dose on Sat10/21/18 at 2000, Routine oxazepam (SERAX) capsule 15 mg 15 mg, Oral, Q4HPRN, Starting 10/19/18 at 0123, Until Discontinued, Routine, Only while awake for DBP equal to or greater than 100, HR equal to or greater than 100. 10/19/2018 5:36 PM CDT 1 tablet sennosides-docusate sodium (SENOKOT S) Given 8.6-50 mg per tablet 1 tablet 1 tablet, Oral, DAILY AT 1700, First dose on 10/19/18 at 1700, Until Discontinued, Routine Sliding Scale Insulin-Regular + Fsbg Testing Subcutaneous, AC+HS, First dose on 10/19/18 at 0730, Until Discontinued, Routine 10/20/2018 7:45 AM CDT 100 mg thiamine (VITAMIN B1) tablet 100 mg Given 100 mg, Oral, DAILY, First dose on 10/19/18 at 0900, Until Discontinued, Routine 100 mg Given 10/19/2018 9:21 AM CDT Action Date Dose Rate Site Medication Order MAR Action 10/19/2018 2:25 PM CDT 10 mg hydralAZINE (APRESOLINE) injection 10 mg Given 10 mg, Intravenous, ONCE, 1 dose, 10/19/18 at 1515, Routine, Indication: Hypertensive Emergency 10/19/2018 2:13 AM CDT 1,000 mL 999 mL/hr lactated ringers IV infusion 1,000 mL New Bag at 999 mL/hr, 1,000 mL, Intravenous, ONCE, 1 dose, 10/19/18 at 0245, Routine 10/19/2018 8:09 PM CDT 2 mg morpHINE injection 2 mg Given 2 mg, Slow IV Push, Q4HPRN, Starting 10/19/18 at 0130, Until Sat10/20/18 at 0129, Routine, Pain (scale 7-10) 2 mg Given 10/19/2018 3:50 PM CDT 2 mg Given 10/19/2018 10:50 AM CDT 10/19/2018 11:27 PM CDT 15 mg oxazepam (SERAX) capsule 15 mg Given 15 mg, Oral, Q6H, 4 doses, First dose on 10/19/18 at 0600, Last dose on Sat10/20/18 at 0000, Routine 15 mg Given 10/19/2018 5:36 PM CDT 15 mg Given 10/19/2018 11:01 AM CDT documented in this encounter
--- NOTE | 2018-12-20 05:15 | NUR ---
pt up out stretcher and closed door to room. to room to assess, pt noted getting back onto stretcher. pt noted attempting to hide object in bed. pt asked to show object. pt noted c 62% ethyl alcohol seam stay stitcher bottle from hand seam stay stitcher dispenser. bottle removed from room. supply cart removed from room. pt cursing at staff and charge nurse.
--- NOTE | 2018-12-20 06:00 | NUR ---
pt up amubating to bathroom at this time s calling for assistance. to bathroom with pt, noted c steady gait/balance. back to room and into stretcher. no distress noted. resp even and unlabored on ra. answers questions appropriately.
[2018-12-20 06:41] VITALS: BP 111/76
== END 2018-12-20 06:50 | disposition home or self-care (01) ==
LOC: ER 04:30
DX: F10.120 Alcohol abuse with intoxication, uncomplicated (principal)
CPT/HCPCS: 99283

== ENCOUNTER 2019-01-13 02:50 | Emergency (ER) | payer SELFPAY ==
[~2019-01-13] VITALS: Ht 170.2 cm; Wt 104.3 kg
--- NOTE | 2019-01-13 03:05 | NUR ---
ER MD TO BS FOR INITIAL EVAL; PT CURSING AT ER MD AND STAFF; PT ASKED TO STOP VERBALLY ABUSING STAFF, PT RESPONDED, "FUCK YOU, YOU FUCKING BITCH." INFORMED PT THAT DEBRA GOMEZ WOULD BE CALLED TO ER PT WOULD NOT STOP YELLING AND CURSING AT STAFF. PT DEPARTED UNIT AMBULATORY WITH STEADY GAIT AND NAD NOTED.
== END 2019-01-13 03:10 | disposition home or self-care (01) ==
LOC: ER 02:50
DX: F10.129 Alcohol abuse with intoxication, unspecified (principal)
CPT/HCPCS: 99282

== ENCOUNTER 2019-05-27 15:21 | Emergency (ER) | payer SELFPAY ==
[~2019-05-27] VITALS: Ht 170.2 cm; Wt 104.3 kg
[2019-05-27] MEDS ORDERED: SODIUM CHLORIDE 0.9% 1000ML 1,000 ML IV STA (15:27)
--- NOTE | 2019-05-27 15:33 | NUR ---
CLIENT STATES THAT HE IS INTERESTED IN DETOX.
[2019-05-27 16:07] LABS: BASOPHILS % 0.6 % (0.0-1.0); EOSINOPHILS # (AUTO) 0.1 (0.0-0.4); EOSINOPHILS % 1.3 % (0.0-6.0); HEMOGLOBIN 9.1 g/dL (14.0-18.0); LYMPHOCYTES # (AUTO) 1.1 (1.0-3.2); LYMPHOCYTES % 24.1 % (18.0-39.1); MEAN CORPUSCULAR HEMOGLOBIN 20.9 pg (28-32); MEAN CORPUSCULAR HGB CONC 30.3 g/dL (31-35); MEAN CORPUSCULAR VOLUME 68.8 fL (81-99); MONOCYTES # (AUTO) 0.7 (0.2-0.8); MONOCYTES % 15.1 % (4.4-11.3); NEUTROPHILS # (AUTO) 2.7 (2.1-6.9); NEUTROPHILS % 58.5 % (38.7-80.0); PLATELET COUNT 135 x10e3/uL (140-360); RED BLOOD COUNT 4.36 x10e6/uL (4.3-5.7); RED CELL DISTRIBUTION WIDTH 21.4 % (11.7-14.4)
--- NOTE | 2019-05-27 17:00 | Diagnostic Imaging Report ---
EXAMINATION: CHEST SINGLE (PORTABLE) INDICATION: Fall COMPARISON: None FINDINGS: LINES/TUBES:None LUNGS:The lungs are well-inflated. No focal consolidation or pulmonary edema. PLEURA:No pleural effusion or pneumothorax. MEDIASTINUM:The cardiomediastinal silhouette appears normal in size and shape. BONES/SOFT TISSUES:No acute osseous injury. ABDOMEN:No free air under the diaphragm. IMPRESSION: No radiographic evidence of acute traumatic injury to the thorax. No focal pneumonia or pulmonary edema. Signed by: Pema Case MD on 05/27/2019 4:57 PM
--- NOTE | 2019-05-27 17:38 | NUR ---
CLIENT STATING THAT HE WANTS TO LEAVE, CLIENT IS REFUSING ALL TREATMENT INCLUDING CT SCAN OF THE HEAD/BRAIN. CLIENT CHOOSING TO DISCONTINUE TREATMENT AND TO LEAVE. CLIENT ADVISED OF RISKS AND CONTINUES TO DEMAND TO LEAVE. IV CATHETER REMOVED WITH CATHETER INTACT AND BLEEDING CONTROLLED, BANDAGED WITH 2X2 AND TAPE. CLIENT REFUSED TO HAVE LAERATION TO FOREHEAD REPAIRED AND CLEANED PRIOR TO DEPARTING ED.
[2019-05-27 18:03] LABS: ALANINE AMINOTRANSFERASE 99 IU/L (0-55); ALBUMIN 3.5 g/dL (3.5-5.0); ALBUMIN/GLOBULIN RATIO 0.9 (0.8-2.0); ALKALINE PHOSPHATASE 170 IU/L (40-150); ANION GAP 19.7 mmol/L (8-16); BLOOD UREA NITROGEN 6 mg/dL (7-26); BUN/CREATININE RATIO 7 (6-25); CALCIUM 8.4 mg/dL (8.4-10.2); CARBON DIOXIDE 20 mmol/L (22-29); CHLORIDE 98 mmol/L (98-107); CREATININE, SERUM 0.84 mg/dL (0.72-1.25); EST GLOMERULAR FILTRATION RATE > 60 ML/MIN (60-); GLUCOSE 366 mg/dL (74-118); MAGNESIUM 1.9 MG/DL (1.3-2.1); POTASSIUM 3.7 mmol/L (3.5-5.1); SODIUM 134 mmol/L (136-145)
== END 2019-05-27 18:00 | disposition home or self-care (01) ==
LOC: ER 15:21
DX: S00.83XA Contusion of other part of head, initial encounter (principal); W01.0XXA Fall on same level from slipping, tripping and stumbling without subsequent striking against object, initial encounter; Y93.01 Activity, walking, marching and hiking; Y92.488 Other paved roadways as the place of occurrence of the external cause; E11.65 Type 2 diabetes mellitus with hyperglycemia; I10 Essential (primary) hypertension; G40.909 Epilepsy, unspecified, not intractable, without status epilepticus; B19.20 Unspecified viral hepatitis C without hepatic coma; J44.9 Chronic obstructive pulmonary disease, unspecified
CPT/HCPCS: 36415; 71045; 80053; 83735; 85025; 87086; 99284; J7030

== ENCOUNTER 2019-07-30 14:41 | Emergency (ER) | payer SELFPAY ==
[~2019-07-30] VITALS: Ht 170.2 cm; Wt 104.3 kg
--- OUTSIDE RECORDS SUMMARY | 2019-07-30 14:44 | XMS REPORT | Summary of Care ---
Author Author [facility] Organization [facility] Address Unknown Phone Unavailable Encounter JANINE Beckford(LETY) [id number] Date(s): 02/15/16 - 02/15/16 [facility] [address] [employer] provided by [employer] [facility] [place] [address]- Discharge Diagnosis: Facial laceration Discharge Diagnosis: Acute head trauma Discharge Diagnosis: Alcohol abuse Discharge Disposition: DC/TF TO COURT/LAW Attending Physician: Nicola Zaman MD Vital Signs 1 2 3 Most recent to oldest [Reference Range]: 97.2 DegF (02/15/16 5:00 AM) 97.6 DegF (02/15/16 1:48 AM) Temperature Oral [96.4-99.1 DegF] 131/75 mmHg (02/15/16 5:00 AM) 140/78 mmHg (02/15/16 3:30 AM) 136/83 mmHg (02/15/16 1:48 AM) Blood Pressure [90-140/60-90 mmHg] 18 BRMIN (02/15/16 5:00 AM) 18 BRMIN (02/15/16 3:30 AM) 18 BRMIN (02/15/16 1:48 AM) Respiratory Rate [14-20 BRMIN] 91 bpm (02/15/16 5:00 AM) 100 bpm (02/15/16 3:30 AM) 115 bpm *HI* (02/15/16 1:48 AM) Peripheral Pulse Rate [60-100 bpm] Problem List No data available for this section Allergies, Adverse Reactions, Alerts Substance Reaction Severity Status Dilantin Active NKDA Active Medications Ativan 2 mg, 1 mL, Route: IVP, Drug form: INJ, ONCE, kg, Priority: STAT, Start date: 2:01:00 MEDICAL WRITER, Stop date: 02/15/16 2:01:00 MEDICAL WRITER Notes: (Same as: Ativan) Start Date: 02/15/16 Stop Date: 02/15/16 Status: Completed lidocaine-epi [id number] 1 appl, Route: TOP, Drug Form: INJ, kg, ONCE, STAT, Start date: 02/15/16 3:25:00 MEDICAL WRITER, Stop date: 02/15/16 3:25:00 MEDICAL WRITER Notes: (Same as: Xylocaine w/Epinephrine) Start Date: 02/15/16 Stop Date: 02/15/16 Status: Completed NS (Bolus) IV 1,000 mL, 1,000 ml/hr, Infuse Over: 1 hr, Route: IV, 1,000, Drug form: INJ, ONCE , Priority: STAT, kg, Start date: 02/15/16 2:02:00 MEDICAL WRITER, Duration: 1 doses or yanira es, Stop date: 02/15/16 2:02:00 MEDICAL WRITER Start Date: 02/15/16 Stop Date: 02/15/16 Status: Completed Results ELECTROLYTES Most recent to 1 oldest [Reference Range]: Sodium Lvl [135-145 135 mEq/L mEq/L] (02/15/16 2:17 AM) Potassium Lvl 3.9 mEq/L [3.5-5.1 mEq/L] (02/15/16 2:17 AM) Chloride Lvl [95-109 98 mEq/L mEq/L] (02/15/16 2:17 AM) CO2 [24-32 mEq/L] 24 mEq/L (02/15/16 2:17 AM) AGAP [10.0-20.0 16.9 mEq/L mEq/L] (02/15/16 2:17 AM) CHEM PANEL Most recent to 1 oldest [Reference Range]: Creatinine Lvl 0.91 mg/dL [0.50-1.40 mg/dL] (02/15/16 2:17 AM) eGFR 109 mL/min/1.73m2 1 *NA* (02/15/16 2:17 AM) BUN [7-22 mg/dL] 12 mg/dL (02/15/16 2:17 AM) Glucose Lvl [70-99 382 mg/dL mg/dL] *HI* (02/15/16 2:17 AM) Calcium Lvl 8.5 mg/dL [8.5-10.5 mg/dL] (02/15/16 2:17 AM) Phosphorus [2.5-4.5 4.5 mg/dL mg/dL] (02/15/16 2:17 AM) Magnesium Lvl 2.0 mg/dL [1.8-2.4 mg/dL] (02/15/16 2:17 AM) 1Result Comment: The eGFR is calculated using the CKD-EPI formula. In most young, healthy individuals the eGFR will be >90 mL/min/1.73m2. The eGFR declines with age. An eGFR of 60-89 may be normal in some populations, particularly the elderly, for whom the CKD-EPI formula has not been extensively validated. Use of the eGFR is not recommended in the following populations: Individuals with unstable creatinine concentrations, including patients and those with serious co-morbid conditions. Patients with extremes in muscle mass or diet. The data above are obtained from the National Kidney Disease Education Program ( NKDEP) which additionally recommends that when the eGFR is used in patients with extremes of body mass index for purposes of drug dosing, the eGFR should be mul tiplied by the estimated BMI. TOXICOLOGY Most recent to 1 oldest [Reference Range]: Etoh (%) .219 % *NA* (02/15/16:17 AM) Ethanol Lvl 219 mg/dL *NA* (02/15/16:17 AM) HEMATOLOGY Most recent to 1 oldest [Reference Range]: WBC [3.7-10.4 K/CMM] 11.0 K/CMM *HI* (02/15/16 2:17 AM) RBC [4.70-6.10 4.91 M/CMM M/CMM] (02/15/16 2:17 AM) Hgb [14.0-18.0 g/dL] 15.9 g/dL (02/15/16 2:17 AM) Hct [42.0-54.0 %] 45.3 % (02/15/16 2:17 AM) MCV [80.0-94.0 fL] 92.3 fL (02/15/16 2:17 AM) MCH [27.0-31.0 pg] 32.4 pg *HI* (02/15/16 2:17 AM) MCHC [32.0-36.0 35.1 g/dL g/dL] (02/15/16: AM) RDW [11.5-14.5 %] 14.4 % (02/15/16:17 AM) Platelet [133-450 245 K/CMM K/CMM] (02/15/16: AM) MPV [7.4-10.4 fL] 7.5 fL (02/15/16: AM) Segs [45.0-75.0 %] 62.6 % (02/15/16: AM) Lymphocytes 26.3 % [20.0-40.0 %] (02/15/16: AM) Monocytes [2.0-12.0 8.3 % %] (02/15/16: AM) Eosinophils [0.0-4.0 1.8 % %] (02/15/16: AM) Basophils [0.0-1.0 1.0 % %] (02/15/16: AM) Segs-Bands # 6.9 K/CMM [1.5-8.1 K/CMM] (02/15/16: AM) Lymphocytes # 2.9 K/CMM [1.0-5.5 K/CMM] (02/15/16: AM) Monocytes # [0.0-0.8 0.9 K/CMM K/CMM] *HI* (02/15/16 2:17 AM) Eosinophils # 0.2 K/CMM [0.0-0.5 K/CMM] (02/15/16:17 AM) Basophils # [0.0-0.2 0.1 K/CMM K/CMM] (02/15/16 2:17 AM) PT [12.0-14.7 14.2 seconds seconds] (02/15/16 2:17 AM) INR [0.85-1.17] 1.08 (02/15/16 2:17 AM) PTT [22.9-35.8 31.8 seconds seconds] (02/15/16: AM) Immunizations No data available for this section Procedures No data available for this section Social History Social History Type Response Smoking Status Current every day smoker; T ype: Cigarettes; Concerns about tobacco use in household: No; Exposure to Tobacco Smok e None; Cigarette Smoking Last 365 Days Yes; Reg Smoking Cessation 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
--- OUTSIDE RECORDS SUMMARY | 2019-07-30 14:44 | XMS REPORT | Summary of Care ---
Author Author [facility] Organization [facility] Address Unknown Phone Unavailable Encounter JANINE Beckford(LETY) [id number] Date(s): 08/09/18 - 08/10/18 [facility] [address] [facility] provided by [facility] [employer] [facility] [employer] [place] [address]- Discharge Disposition: Acute Care Attending Physician: Gopal Alvarez MD Admitting Physician: Gopal Alvarez MD Vital Signs 1 2 3 Most recent to oldest [Reference Range]: 172.72 cm (08/10/18 3:52 AM) Height 97.5 DegF (08/10/18 4:04 PM) 97.9 DegF (08/10/18 11:45 AM) 97.7 DegF (08/10/18 3:55 AM) Temperature Oral [96.4-99.1 DegF] 167/90 mmHg *HI* (08/10/18 4:04 PM) 153/82 mmHg *HI* (08/10/18 11:45 AM) 154/78 mmHg *HI* (08/10/18 6:42 AM) Blood Pressure [90-140/60-90 mmHg] 18 BRMIN (08/10/18 4:04 PM) 18 BRMIN (08/10/18 11:45 AM) 20 BRMIN (08/10/18 4:35 AM) Respiratory Rate [14-20 BRMIN] 102 bpm *HI* (08/10/18 4:04 PM) 103 bpm *HI* (08/10/18 11:45 AM) 98 bpm (08/10/18 6:42 AM) Peripheral Pulse Rate [60-100 bpm] 104.091 kg (08/10/18 3:52 AM) Weight 34.89 m2 (08/10/18 3:52 AM) Body Mass Index Problem List No data available for this section Allergies, Adverse Reactions, Alerts Substance Reaction Severity Status Dilantin Active Medications acetaminophen 1,000 mg, 2 tab, Route: PO, Drug form: TAB, Q6Hnow, kg, Start date: 08/10/18 4:0 0:00 CDT, Duration: 30 day, Stop date: 09/09/18 2:00:00 CDT Notes: Max acetaminophen 4000 mg/day (4 gm/day). (Same as: Tylenol Extra Streng th) Start Date: 08/10/18 Stop Date: 08/10/18 Status: Discontinued acetaminophen 500 mg oral tablet 1,000 mg = 2 tab, PO, Q6Hnow, 0 Refill(s) Start Date: 08/10/18 Status: Ordered chlordiazePOXIDE 25 mg oral capsule (Librium) 25 mg, 1 cap, Route: PO, Drug form: CAP, Q6H, Dosing Weight 104.091, kg, Alcohol Withdrawal, Start date: 08/10/18 12:00:00 CDT, Duration: 3 day, Stop date: 07/20 08/06 6:00:00 CDT Start Date: 08/10/18 Stop Date: 08/10/18 Status: Discontinued Dextrose 50% Syringe 25 gm, 50 mL, Route: IVP, Drug Form: INJ, kg, PRN, PRN Blood Glucose Results, St art date: 08/10/18 3:29:00 CDT, Duration: 30 day, Stop date: 09/09/18 3:28:00 CD T Start Date: 08/10/18 Stop Date: 08/10/18 Status: Discontinued Dextrose 50% Syringe 12.5 gm, 25 mL, Route: IVP, Drug Form: INJ, kg, PRN, PRN Blood Glucose Results, Start date: 08/10/18 3:29:00 CDT, Duration: 30 day, Stop date: 09/09/18 3:28:00 CDT Start Date: 08/10/18 Stop Date: 08/10/18 Status: Discontinued docusate 100 mg, 1 cap, Route: PO, Drug form: CAP, BID, kg, Start date: 08/10/18 9:00:00 CDT, Duration: 30 day, Stop date: 09/08/18 17:00:00 CDT Notes: (Same as: Colace) (Do Not Crush) Start Date: 08/10/18 Stop Date: 08/10/18 Status: Discontinued docusate sodium 100 mg oral capsule 100 mg = 1 cap, PO, BID, 0 Refill(s) Start Date: 08/10/18 Status: Ordered folic acid 1 mg, 1 tab, Route: PO, Drug form: TAB, Daily, Dosing Weight 104.091, kg, Start date: 08/10/18 9:00:00 CDT, Duration: 30 day, Stop date: 09/08/18 9:00:00 CDT Notes: (Same as: Folvite) Start Date: 08/10/18 Stop Date: 08/10/18 Status: Discontinued folic acid 1 mg oral tablet 1 mg = 1 tab, PO, Daily, 0 Refill(s) Start Date: 08/10/18 Status: Ordered glucagon 1 mg, Route: IM, Drug form: PDR/INJ, PRN, kg, PRN Blood Glucose Results, Start d ate: 08/10/18 3:29:00 CDT, Duration: 30 day, Stop date: 09/09/18 3:28:00 CDT Start Date: 08/10/18 Stop Date: 08/10/18 Status: Discontinued Lactated Ringers (Bolus) IV 1,000 mL, 1000 ml/hr, Infuse Over: 1 hr, Route: IV, 1,000, Drug form: INJ, ONCE, Priority: STAT, kg, Start date: 08/10/18 2:43:00 CDT, Stop date: 08/10/18 2:43: 00 CDT Start Date: 08/10/18 Stop Date: 08/10/18 Status: Completed morphine Sulfate 4 mg, 1 mL, Route: IVP, Drug form: SOLN, ONCE, kg, Priority: STAT, Start date: 0 08/09/18 23:10:00 CDT, Stop date: 08/09/18 23:10:00 CDT Notes: (Same as:MORPhine Sulfate) Start Date: 08/09/18 Stop Date: 08/09/18 Status: Completed morphine Sulfate 4 mg, 1 mL, Route: IVP, Drug form: SOLN, ONCE, kg, Priority: STAT, Start date: 0 08/10/18 1:51:00 CDT, Stop date: 08/10/18 1:51:00 CDT Notes: (Same as:MORPhine Sulfate) Start Date: 08/10/18 Stop Date: 08/10/18 Status: Completed NIFEdipine 30 mg oral tablet, extended release 30 mg, 1 tab, Route: PO, Drug form: ERTAB, Daily, Dosing Weight 104.091, kg, Sta rt date: 08/10/18 6:15:00 CDT, Duration: 30 day, Stop date: 09/08/18 9:00:00 CDT Notes: (Same as: Adalat CC, Procardia XL) Give on empty stomach. Take 1 hour be fore or 2 hours after meal; "Avoid grapefruit and grapefruit juice". Do not cru sh Start Date: 08/10/18 Stop Date: 08/10/18 Status: Discontinued NIFEdipine 30 mg oral tablet, extended release 30 mg = 1 tab, PO, Daily, 0 Refill(s) Start Date: 08/10/18 Status: Ordered ondansetron 4 mg, 2 mL, Route: IVP, Drug form: INJ, ONCE, kg, Priority: STAT, Start date: 23:10:00 CDT, Stop date: 08/09/18 23:10:00 CDT Notes: (Same as: Shaka) MEDICATION WASTE Product Size: 4 mgProduct Was kenisha: ___ mg Start Date: 08/09/18 Stop Date: 08/09/18 Status: Completed ondansetron 4 mg, 2 mL, Route: IVP, Drug form: INJ, ONCE, kg, Priority: STAT, Start date: 1:51:00 CDT, Stop date: 08/10/18 1:51:00 CDT Notes: (Same as: Shaka) MEDICATION WASTE Product Size: 4 mgProduct Was kenisha: 0mg Start Date: 08/10/18 Stop Date: 08/10/18 Status: Completed ondansetron 2 mg/mL injectable solution 4 mg = 2 mL, IVP, Q8H, PRN Nausea, 0 Refill(s) Start Date: 08/10/18 Status: Ordered oxyCODONE 5 mg immediate release 5 mg, 1 tab, Route: PO, Drug form: TAB, Q4H, kg, PRN Pain Score 4-6, Start date: 08/10/18 3:28:00 CDT, Duration: 30 day, Stop date: 09/09/18 3:27:00 CDT Notes: (Same as: Roxicodone) Start Date: 08/10/18 Stop Date: 08/10/18 Status: Discontinued oxyCODONE 5 mg oral tablet, immediate release 10 mg, 2 tab, Route: PO, Drug form: TAB, Q4H, Dosing Weight 104.091, kg, PRN Bernardo n Score 7-10, Start date: 08/10/18 10:51:00 CDT, Duration: 30 day, Stop date: 10:50:00 CDT Notes: (Same as: Roxicodone) Start Date: 08/10/18 Stop Date: 08/10/18 Status: Discontinued oxyCODONE 5 mg oral tablet, immediate release 10 mg = 2 tab, PO, Q4H, PRN Pain Score 7-10, 0 Refill(s) Start Date: 08/10/18 Status: Ordered oxyCODONE 5 mg oral tablet, immediate release 5 mg = 1 tab, PO, Q4H, PRN Pain Score 4-6, 0 Refill(s) Start Date: 08/10/18 Status: Ordered PlasmaLyte A PH-7.4 1,000 mL 1,000 mL, Rate: 75 ml/hr, Infuse over: 13.3 hr, Route: IV, Dosing Weight 104.091 kg, Total Volume: 1,000, Start date: 08/10/18 16:28:00 CDT, Duration: 30 day, S top date: 09/09/18 16:27:00 CDT, 2.26, m2 Notes: (Same as: Isolyte S PH 7.4) Start Date: 08/10/18 Stop Date: 08/10/18 Status: Discontinued senna 17.2 mg, 2 tab, Route: PO, Drug Form: TAB, kg, Bedtime, Start date: 08/10/18 21: 00:00 CDT, Duration: 30 day, Stop date: 09/08/18 21:00:00 CDT Notes: (Same as: Senokot) Start Date: 08/10/18 Stop Date: 08/10/18 Status: Canceled Sodium Chloride 0.9% (Bolus) IV 1,000 mL, 1000 ml/hr, Infuse Over: 1 hr, Route: IV, 1,000, Drug form: INJ, ONCE, Priority: STAT, kg, Start date: 08/09/18 23:10:00 CDT, Stop date: 08/09/18 23:1 0:00 CDT Start Date: 08/09/18 Stop Date: 08/09/18 Status: Completed thiamine 100 mg, 1 tab, Route: PO, Drug form: TAB, Daily, Dosing Weight 104.091, kg, Star t date: 08/10/18 9:00:00 CDT, Duration: 30 day, Stop date: 09/08/18 9:00:00 CDT Notes: (Same As: Vitamin B1) Start Date: 08/10/18 Stop Date: 08/10/18 Status: Discontinued thiamine 100 mg oral tablet 100 mg = 1 tab, PO, Daily, 0 Refill(s) Start Date: 08/10/18 Status: Ordered vancomycin 1 gm, Route: IVPB, Drug form: INJ, ONCE, kg, Priority: STAT, Start date: 9 23:03:00 CDT, Stop date: 08/09/18 23:03:00 CDT, ABX Indication: Skin/Soft Tiss ue Infection Notes: TIME CRITICAL MEDICATION(Same As: Vancocin)Infusion rate< 1000 mg: infuse over 1 [id number] - 1500 mg: infuse over 1.5 [id number] - 2000 mg: infuse over 2 hours> 2001 mg: infuse over 2.5 hoursFor adult patients only: Round to nearest 250 mg per Medical Staff approval MEDICATION WASTE Product Size: 1000 mgProduct Wasted: ___ mg Start Date: 08/09/18 Stop Date: 08/09/18 Status: Completed Zofran 4 mg, 2 mL, Route: IVP, Drug form: INJ, Q8H, Dosing Weight 104.091, kg, PRN Na ea, Start date: 08/10/18 12:15:00 CDT, Duration: 30 day, Stop date: 09/09/18 12: 14:00 CDT Notes: (Same as: Zofran) MEDICATION WASTE Product Size: 4 mgProduct Was kenisha: ___ mg Start Date: 08/10/18 Stop Date: 08/10/18 Status: Discontinued Results Most recent to 1 2 oldest [Reference Range]: [facility] HIV 4th GEN Negative [Negative] *NA* (08/09/18 11:10 PM) Neutrophils # 5.6 K/CMM [1.5-8.1 K/CMM] (08/09/18 11:10 PM) Lymphocytes # 1.4 K/CMM [1.0-5.5 K/CMM] (08/09/18 11:10 PM) Monocytes # [0.0-0.8 0.9 K/CMM K/CMM] *HI* (08/09/18 11:10 PM) Eosinophils # 0.2 K/CMM [0.0-0.5 K/CMM] (08/09/18 11:10 PM) E. faecalis [Not Not Detected Detected] (08/09/18 11:20 PM) E. faecium [Not Not Detected Detected] (08/09/18 11:20 PM) Listeria spp. [Not Not Detected Detected] (08/09/18 11:20 PM) mecA Methicillin Not Detected Resistance [Not (08/09/18 11:20 PM) Detected] S. agalactiae [Not Not Detected Detected] (08/09/18 11:20 PM) S. anginosus grp Not Detected [Not Detected] (08/09/18 11:20 PM) S. aureus [Not Not Detected Detected] (08/09/18 11:20 PM) S. epidermidis [Not Detected Detected] *ABN* (08/09/18 11:20 PM) S. lugdunensis [Not Not Detected Detected] (08/09/18 11:20 PM) S. pneumoniae [Not Not Detected Detected] (08/09/18 11:20 PM) S. pyogenes [Not Not Detected Detected] (08/09/18 11:20 PM) Staphylococcus spp. Detected [Not Detected] *ABN* (08/09/18 11:20 PM) Streptococcus spp. Not Detected [Not Detected] (08/09/18 11:20 PM) Gabriel Vancomycin Not Detected Resistance [Not (08/09/18 11:20 PM) Detected] vanB Vancomycin Not Detected Resistance [Not (08/09/18 11:20 PM) Detected] eGFR 97 mL/min/1.73m2 1 84 mL/min/1.73m2 2 *NA* *NA* (08/10/18 4:25 AM) (08/09/18 11:10 PM) ABO/Rh O POS *Unknown* (08/10/18 4:25 AM) Antibody Scrn Negative (08/10/18 4:25 AM) AGAP [10.0-20.0 14.7 mEq/L 20.5 mEq/L mEq/L] (08/10/18 4:25 AM) *HI* (08/09/18 11:10 PM) Basophils [0.0-1.0 0.4 % %] (08/09/18 11:10 PM) BUN [7-22 mg/dL] 10 mg/dL 9 mg/dL (08/10/18 4:25 AM) (08/09/18 11:10 PM) Calcium Lvl 8.8 mg/dL 9.0 mg/dL [8.5-10.5 mg/dL] (08/10/18 4:25 AM) (08/09/18 11:10 PM) Chloride Lvl [95-109 102 mEq/L 94 mEq/L mEq/L] (08/10/18 4:25 AM) *LOW* (08/09/18 11:10 PM) CO2 [24-32 mEq/L] 22 mEq/L 19 mEq/L *LOW* *LOW* (08/10/18 4:25 AM) (08/09/18 11:10 PM) Creatinine Lvl 0.99 mg/dL 1.11 mg/dL [0.50-1.40 mg/dL] (08/10/18 4:25 AM) (08/09/18 11:10 PM) CRP [<=2.9 mg/L] 68.5 mg/L *HI* (08/10/18 2:16 AM) Eosinophils [0.0-4.0 3.0 % %] (08/09/18 11:10 PM) Glucose Lvl [70-99 170 mg/dL 226 mg/dL mg/dL] *HI* *HI* (08/10/18 4:25 AM) (08/09/18 11:10 PM) Hct [42.0-54.0 %] 30.3 % *LOW* (08/09/18:10 PM) Hgb [14.0-18.0 g/dL] 10.1 g/dL *LOW* (08/09/18 11:10 PM) INR [0.85-1.17] 1.04 (08/10/18 4:25 AM) Potassium Lvl 3.7 mEq/L 3.5 mEq/L [3.5-5.1 mEq/L] (08/10/18 4:25 AM) (08/09/18 11:10 PM) Lactic Acid Lvl 0.8 mMol/L [0.5-2.2 mMol/L] (08/10/18 2:16 AM) Lymphocytes 16.7 % [20.0-40.0 %] *LOW* (08/09/18 11:10 PM) MCH [27.0-31.0 pg] 29.4 pg (08/09/18:10 PM) MCHC [32.0-36.0 33.5 g/dL g/dL] (08/09/18 11:10 PM) MCV [80.0-94.0 fL] 88.0 fL (08/09/18:10 PM) Monocytes [2.0-12.0 11.2 % %] (08/09/18 11:10 PM) MPV [7.4-10.4 fL] 6.8 fL *LOW* (08/09/18: PM) Sodium Lvl [135-145 135 mEq/L 130 mEq/L mEq/L] (08/10/18 4:25 AM) *LOW* (08/09/18 11:10 PM) Platelet [133-450 184 K/CMM K/CMM] (08/09/18 11:10 PM) Segs [45.0-75.0 %] 68.7 % (08/09/18 11:10 PM) PT [12.0-14.7 13.4 seconds seconds] (08/10/18 4:25 AM) PTT [22.9-35.8 33.7 seconds seconds] (08/10/18 4:25 AM) RBC [4.70-6.10 3.44 M/CMM M/CMM] *LOW* (08/09/18 11:10 PM) RDW [11.5-14.5 %] 15.4 % *HI* (08/09/18 11:10 PM) Sed Rate [0-15 28 mm/hr mm/hr] *HI* (08/10/18 4:25 AM) WBC [3.7-10.4 K/CMM] 8.2 K/CMM (08/09/18 11:10 PM) Lactic Acid WB 3.1 mmol/L [0.5-2.2 mmol/L] *HI* (08/09/18 11:10 PM) 1Result Comment: The eGFR is calculated using [...] be mul tiplied by the estimated BMI. 2Result Comment: The eGFR is calculated using the [...] be mul tiplied by the estimated BMI. Immunizations No data available for this section Procedures No data available for this section Social History Social History Type Response Substance Abuse Use: Past. Alcohol Current, Type Liquor. Freq uency: Daily. Last use: 08/09/18. Previous treatment: Outpatient. 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 1.Left leg cellulitis(L03.116) Received vancomycin in the ED Follow-up blood culture, intraoperative cultures Start broad-spectrum antibiotics after OR Ordered: Admit/Condition, 08/10/18 3:29:00 CDT, Status: Inpatient, Acute, Expected LOS: 3 or [employer], Gopal Alvarez MD, Admit MD Review/Approve Yes, Isolation: No Isolation/Standard Precautions, Left leg cellulitis 2.Infected hardware in left leg(T84.7XXA) NonweightbearingLLE To OR today- GABBY w ex fix vs casting of left ankle Multimodal pain management Start broad-spectrum antibiotics after OR PT, OT after OR 3.Pre-operative exam(Z01.818) Mets more than 4 RCRI0, 3.9 risk of MACE No History of CAD/CVA/insulin use EKG NSR Patient is low risk for intermediate risk surgery, can proceed with surgeryif PT, PTTis normal (currently pending) 4.Lactic acidosis(E87.2) Also had metabolic acidosis Likely related to cellulitis Resolved 5.HTN (hypertension)(I10) Start on nifedipine 30 mg 6.Type 2 diabetes mellitus(E11.9) Sliding scale insulin Blood sugar goal 140-180 7.Hepatitis C(B19.20) Outpatient hepatology follow-up 8.Alcohol abuse(F10.10) Folic acid, thiamine No signs of withdrawal Watch for withdrawal Prophylactic Librium taper 9.Tobacco abuse(Z72.0) Counselled 10. COPD Not in exacerbation DuoNeb as needed 11. Hypothyroidism Patient currently not taking levothyroxine Obtain TSHand supplementation accordingly lovenox to OR today
--- OUTSIDE RECORDS SUMMARY | 2019-07-30 14:44 | XMS REPORT | Continuity of Care Document ---
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 knee is identified. There is a small amorphous calcification adjacent to the medial femoral condyle that may represent sequela of medial collateral ligament injury. Mild medial clear space widening and distal tibiofibular syndesmotic joint widening are better seen on the ankle radiograph. Left distal fibular hardware is again noted. Minimally displaced posterior malleolus fracture is also noted. There is mild diffuse soft tissue swelling of the left lower leg without subcutaneous emphysema identified. IMPRESSION: 1. Small suprapatellar left knee joint effusion with mild soft tissue prominence along the medial aspect of the knee. No associated acute fracture or malalignment of the left knee. 2. No acute bony abnormality of the pro ximal to mid left tibia and fibula. 3. Mild medial clear space and distal t ibiofibular syndesmotic joint widening, better seen on the ankle radiograph. 4. Minimally displaced posterior malleo delia fracture. 5. Mild diffuse soft tissue swelling of the left lower leg. 08/10/2018 [facility] Ankle 3 views DX EXAM: LEFT An kle 3 views DX DATE: 08/10/2018 at 0108 hours INDICATION: - 3-week history of gradually worsening lower extremity swelling and erythema status post surgery. ADDITIONAL INFORMATION: 'Pt here with complaints of left ankle pain and redness X 3 days. Pt recent surgery at [facility] for ankle fracture. Pt was at [facility] and was told of possible ankle infection. Pt states of pain with ambulation . PMH of seizure, DM, HTN' COMPARISON: None. TECHNIQUE: AP, oblique and lateral views of the left ankle. FINDINGS: There is lateral side plate and screw fixation of the distal left fibula stabilizing an oblique fracture of the distal fibular shaft extends to approximately 1 cm above the level of the tibial plafond. There is mild lucency around the 4 most proximal screws, in addition the 4th screw is not flush with the plate and bulges out approximately 2 mm. The fracture line is well seen without intervening callus. There is widening of the distal interosseous space with minimal early callus. There is soft tissue swelling of the medial ankle without adjacent malleolar fracture indicating a deltoid ligament injury. There is widening of the medial clear space of approximately 5 mm. There is a small minimally displaced posterior malleolar fracture. There is diffuse soft tissue swelling surrounding the left ankle and distal lower leg. There is mild spur formation at the plantar insertion of the calcaneus. IMPRESSION: 1. Lateral plate and screw fixation of a low Tamez C type injury with residual widening of the medial clear space and widening of the syndesmosis indicating an unstable ankle joint with deltoid ligament injury and minimally displaced posterior malleolar fracture. 2. Mild lucency noted surrounding the 4 most proximal screws through the plate with the 4th screw not flush with the plate and slightly bulging outward of approximately 2 mm. This is worrisome for hardware loosening and/or infection. 3. Diffuse soft tissue swelling surroun ding the distal left lower leg and ankle. Soft tissue infection is not excluded. 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 No focal consolidation or pneumothorax seen. The cardiomediastinal silhouette is normal for technique. There are no acute displaced fractures. IMPRESSION: Mildly blunted bilateral costophrenic sulci may be secondary to pleural fluid or extrapleural fat/thickening. 02/15/2016 [facility] Shoulder series DX EXAM: XR RI GHT SHOULDER 3 VIEWS DATE: 02/15/2016 2:02 AM 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 INDICATION: Pain from a fall COMPARISON: None TECHNIQUE: AP views in internal and external rotation, and an axillary view of the right shoulder FINDINGS: No acute fracture or malalignment is identified. Mild degenerative changes are seen at the acromioclavicular and glenohumeral joints. 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 IMPRESSION: 1. No acute fracture or dislocation. 2. 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 3. Degenerative changes of the glenohum eral and acromioclavicular joints. 02/15/2016 [facility] Spine cervical wo contrast CT EXAM: CT CERVICAL SPINE WITHOUT CONTRAST DATE: 02/15/2016 2:01 AM 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 INDICATION: Pain Post Trauma COMPARISON: Cervical spine CT dated 08/06/2006 TECHNIQUE: Volumetric CT acquisition of the cervical spine without contrast. Axial, sagittal and coronal reconstructions. As per the technologist development, patient was intoxicated and uncooperative during the scan. Study is limited by motion artifact. IV contrast: None. DLP: 544 mGy-cm FINDINGS: The spine is imaged from the skull base to the level of T1. Study is limited by motion artifact at C4-C5 level. Otherwise, no acute fracture or dislocation is identified. Apparent anterolisthesis at C4-C5 is probably related to motion artifact. Mild asymmetric prominence of left C5-C6 facet joint is likely degenerative in nature. No obvious pre or paravertebral hematoma is seen. Nonspecific left anterior paravertebral soft tissue calcifications are seen at C2-C3. Right maxillary sinus opacification is partially seen. IMPRESSION: 1. Study limited by motion artifact at C4-C5. No acute fracture or dislocation seen in rest of the cervical spine. 2. Partially visualized right maxillary sinus mucosal opacification. 02/15/2016 [facility] Brain wo contrast CT EXAM: CT BRAIN WITHOUT CONTRAST DATE: 02/15/2016 2:28 AM 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 INDICATION: Altered level of consciousness COMPARISON: Brain CT dated 08/06/2006 TECHNIQUE: Routine axial CT images of the brain were obtained. DLP: 3031 mGy-cm (this includes the cervical spine CT). FINDINGS: Some of the images are degraded by motion artifact. I do not identify any focal parenchymal lesion. The echols-white matter distinction is adequate. The ventricles and sulci are normal in size. The paranasal sinuses, orbits and mastoids are unremarkable. Soft tissue injuries in the left frontal scalp are identified. IMPRESSION: 1. Examination limited by motion. 2. No definite intracranial abnormality. 02/15/2016 [facility] Consultation Notes No Data Provided for This Section Discharge Summaries No Data Provided for This Section History and Physicals No Data Provided for This Section Vital Signs Vital Sign Value Date Comments Source Systolic (mm Hg) 180 08/28/2018 [facility] Diastolic (mm Hg) 114 08/28/2018 [facility] Temperature Oral (F) 98.4 F 08/28/2018 [facility] Heart Rate 100 08/28/2018 [facility] Respitory Rate 18 08/28/2018 [facility] Heart Rate 89 08/28/2018 [facility] Systolic (mm Hg) 147 08/28/2018 [facility] Diastolic (mm Hg) 88 08/28/2018 [facility] Respitory Rate 18 08/28/2018 [facility] Systolic (mm Hg) 183 08/28/2018 [facility] Diastolic (mm Hg) 95 08/28/2018 [facility] Heart Rate 18 08/28/2018 [facility] Temperature Oral (F) 98.6 F 08/28/2018 [facility] BMI Calculated 35.04 08/28/2018 [facility] Height 172.72 cm 08/28/2018 [facility] Weight 104.545 08/28/2018 [facility] Temperature Oral (F) 98.5 F 08/28/2018 [facility] Respitory Rate 99 08/28/2018 [facility] Respitory Rate 18 08/10/2018 [facility] Heart Rate 102 08/10/2018 [facility] Temperature Oral (F) 97.5 F 08/10/2018 [facility] Systolic (mm Hg) 167 08/10/2018 [facility] Diastolic (mm Hg) 90 08/10/2018 [facility] Systolic (mm Hg) 153 08/10/2018 [facility] Diastolic (mm Hg) 82 08/10/2018 [facility] Respitory Rate 18 08/10/2018 [facility] Heart Rate 103 08/10/2018 [facility] Temperature Oral (F) 97.9 F 08/10/2018 [facility] Systolic (mm Hg) 154 08/10/2018 [facility] Diastolic (mm Hg) 78 08/10/2018 [facility] Heart Rate 98 08/10/2018 [facility] Respitory Rate 20 08/10/2018 [facility] Temperature Oral (F) 97.7 F 08/10/2018 [facility] Weight 104.091 08/10/2018 [facility] BMI Calculated 34.89 08/10/2018 [facility] Height 172.72 cm 08/10/2018 [facility] Systolic (mm Hg) 131 02/15/2016 [facility] Diastolic (mm Hg) 75 02/15/2016 [facility] Heart Rate 91 02/15/2016 [facility] Respitory Rate 18 02/15/2016 [facility] Temperature Oral (F) 97.2 F 02/15/2016 [facility] Heart Rate 100 02/15/2016 [facility] Systolic (mm Hg) 140 02/15/2016 [facility] Diastolic (mm Hg) 78 02/15/2016 [facility] Respitory Rate 18 02/15/2016 [facility] Temperature Oral (F) 97.6 F 02/15/2016 [facility] Heart Rate 115 02/15/2016 [facility] Systolic (mm Hg) 136 02/15/2016 [facility] Diastolic (mm Hg) 83 02/15/2016 [facility] Respitory Rate 18 02/15/2016 [facility] Encounters Location Location Details Encounter Type Encounter Number Reason For Visit Attending Provider ADM Date DC Date Status Source [facility] Emergency [id number] Nicola Junie 02/15/2016 02/15/2016 [facility] Inpatient [id number] Gopal Alvarez 08/10/2018 08/11/2018 [facility] Emergency [id number] Ludivina Drummond 08/27/2018 08/28/2018 [facility] Procedures No Data Provided for This Section Assessment and Plan Assessment and Plan Date Source Extracted from:Title: History and Physic al Author: Rufino Mack MD Date: 08/10/18 38-year-old malePMH of hypertension, lucy betes mellitus,hepatitis C, anxiety, hypothyroidism, recentleft ankle fracturestatus [...] TSHand supplementation accordingly lovenox to OR today 08/11/2018 [facility] Plan of Care No Data Provided for This Section Social History Social History Date Source Social History TypeResponse Substance Abuse Use: Past. Alcohol Current, Type Liquor. Frequency: Daily. Last use: 08/09/18. Previous treatment: Outpatient. Smoking Status Current every day smoker; Type: Cigarettes; Concerns about tobacco use in household: No; Exposure to Tobacco Smoke None; Cigarette Smoking Last 365 Days Yes; Reg Smoking Cessation Counseling No entered on: 08/28/18 08/10/2018 [facility] Family History No Data Provided for This Section Advance Directives No Data Provided for This Section Functional Status No Data Provided for This Section
--- OUTSIDE RECORDS SUMMARY | 2019-07-30 14:44 | XMS REPORT | Summary of Care ---
Author Author [facility] Organization [facility] Address Unknown Phone Unavailable Encounter HQ Shakeel(FIN) [id number] Date(s): 08/27/18 - 08/28/18 [facility] [address] [employer] provided by [employer] [facility] [employer] [place] [place] [address]- Encounter Diagnosis Ankle pain (Discharge Diagnosis) - 08/28/18 Cellulitis (Discharge Diagnosis) - 08/28/18 Discharge Disposition: Home or Self Care Attending Physician: Ludivina Drummond MD Vital Signs 1 2 3 Most recent to oldest [Reference Range]: 172.72 cm (08/27/18 7:36 PM) Height 98.4 DegF (08/28/18 6:17 AM) 98.6 DegF (08/28/18 2:05 AM) 98.5 DegF (08/27/18 7:36 PM) Temperature Oral [96.4-99.1 DegF] 180/114 mmHg *HI* (08/28/18 6:17 AM) 147/88 mmHg *HI* (08/28/18 3:15 AM) 183/95 mmHg *HI* (08/28/18 2:05 AM) Blood Pressure [90-140/60-90 mmHg] 18 BRMIN (08/28/18 6:17 AM) 18 BRMIN (08/28/18 3:15 AM) 99 BRMIN *HI* (08/27/18 7:36 PM) Respiratory Rate [14-20 BRMIN] 100 bpm (08/28/18 6:17 AM) 89 bpm (08/28/18 3:15 AM) 18 bpm *LOW* (08/28/18 2:05 AM) Peripheral Pulse Rate [60-100 bpm] 104.545 kg (08/27/18 7:36 PM) Weight 35.04 m2 (08/27/18 7:36 PM) Body Mass Index Problem List No data available for this section Allergies, Adverse Reactions, Alerts Substance Reaction Severity Status Dilantin Active Medications Bactrim DS 800 mg- 160 mg oral tablet 1 tab, Route: PO, Drug Form: TAB, Dosing Weight 104.545, kg, ONCE, Start date: 0 08/28/18 4:56:00 CDT, Stop date: 08/28/18 4:56:00 CDT, 0 Notes: One DS tablet = trimethoprim 160mg + sulfamethoxazole 800 mgDose based on trimethoprim component On empty stomach with a glass of water. (Same As: Bactr im DS, Septra DS) Start Date: 08/28/18 Stop Date: 08/28/18 Status: Completed Bactrim DS 800 mg- 160 mg oral tablet 1 tab, PO, BID, X 7 day, # 14 tab, 0 Refill(s) Start Date: 08/28/18 Stop Date: 09/04/18 Status: Ordered morphine Sulfate 4 mg, 1 mL, Route: IVP, Drug form: SOLN, ONCE, Dosing Weight 104.545, kg, Priori ty: STAT, Start date: 08/28/18 3:39:00 CDT, Stop date: 08/28/18 3:39:00 CDT, 0 Notes: (Same as:MORPhine Sulfate) Start Date: 08/28/18 Stop Date: 08/28/18 Status: Completed rifaMPIN 300 mg oral capsule 600 mg = 2 cap, PO, Daily, X 7 day, # 14 cap, 0 Refill(s) Start Date: 08/28/18 Stop Date: 09/04/18 Status: Ordered Zofran 4 mg, 2 mL, Route: IVP, Drug form: INJ, ONCE, Dosing Weight 104.545, kg, Priorit y: STAT, Start date: 08/28/18 3:40:00 CDT, Stop date: 08/28/18 3:40:00 CDT, 0 Notes: (Same as: Zofran) MEDICATION WASTE Product Size: 4 mgProduct Was kenisha: _0__ mg Start Date: 08/28/18 Stop Date: 08/28/18 Status: Completed Results Most recent to 1 oldest [Reference Range]: CDC HIV 4th GEN Negative [Negative] *NA* (08/28/18 4:54 AM) Neutrophils # 4.1 K/CMM [1.5-8.1 K/CMM] (08/28/18 4:54 AM) Lymphocytes # 2.0 K/CMM [1.0-5.5 K/CMM] (08/28/18 4:54 AM) Monocytes # [0.0-0.8 1.5 K/CMM K/CMM] *HI* (08/28/18 4:54 AM) Eosinophils # 0.2 K/CMM [0.0-0.5 K/CMM] (08/28/18 4:54 AM) Basophils # [0.0-0.2 0.1 K/CMM K/CMM] (08/28/18 4:54 AM) eGFR 112 mL/min/1.73m2 1 *NA* (08/28/18 4:54 AM) ABO/Rh O POS *Unknown* (08/28/18 5:09 AM) Antibody Scrn Negative (08/28/18 5:09 AM) AGAP [10.0-20.0 16.0 mEq/L mEq/L] (08/28/18 4:54 AM) Basophils [0.0-1.0 0.9 % %] (08/28/18 4:54 AM) BUN [7-22 mg/dL] 11 mg/dL (08/28/18 4:54 AM) Calcium Lvl 9.3 mg/dL [8.5-10.5 mg/dL] (08/28/18 4:54 AM) Chloride Lvl [95-109 101 mEq/L mEq/L] (08/28/18 4:54 AM) CO2 [24-32 mEq/L] 25 mEq/L (08/28/18 4:54 AM) Creatinine Lvl 0.83 mg/dL [0.50-1.40 mg/dL] (08/28/18 4:54 AM) CRP [<=2.9 mg/L] 4.2 mg/L *HI* (08/28/18 4:54 AM) Eosinophils [0.0-4.0 2.3 % %] (08/28/18 4:54 AM) Glucose Lvl [70-99 171 mg/dL mg/dL] *HI* (08/28/18 4:54 AM) Hct [42.0-54.0 %] 31.4 % *LOW* (08/28/18 4:54 AM) Hgb [14.0-18.0 g/dL] 10.3 g/dL *LOW* (08/28/18 4:54 AM) INR [0.85-1.17] 1.02 (08/28/18 4:54 AM) Potassium Lvl 4.0 mEq/L [3.5-5.1 mEq/L] (08/28/18 4:54 AM) Lymphocytes 25.1 % [20.0-40.0 %] (08/28/18 4:54 AM) MCH [27.0-31.0 pg] 28.3 pg (08/28/18 4:54 AM) MCHC [32.0-36.0 32.8 g/dL g/dL] (08/28/18 4:54 AM) MCV [80.0-94.0 fL] 86.4 fL (08/28/18 4:54 AM) Monocytes [2.0-12.0 19.1 % %] *HI* (08/28/18 4:54 AM) MPV [7.4-10.4 fL] 6.5 fL *LOW* (08/28/18 4:54 AM) Sodium Lvl [135-145 138 mEq/L mEq/L] (08/28/18 4:54 AM) Platelet [133-450 307 K/CMM K/CMM] (08/28/18 4:54 AM) Segs [45.0-75.0 %] 52.6 % (08/28/18 4:54 AM) PT [12.0-14.7 13.2 seconds seconds] (08/28/18 4:54 AM) PTT [22.9-35.8 31.1 seconds seconds] (08/28/18 4:54 AM) RBC [4.70-6.10 3.63 M/CMM M/CMM] *LOW* (08/28/18 4:54 AM) RDW [11.5-14.5 %] 16.2 % *HI* (08/28/18 4:54 AM) WBC [3.7-10.4 K/CMM] 7.8 K/CMM (08/28/18 4:54 AM) 1Result Comment: The eGFR is calculated [...] Last 365 Days Yes; Reg Smoking Cessation Leather Coverer ing No entered on: 08/28/18 Assessment and Plan No data available for this section
[2019-07-30] MEDS ORDERED: PANTOPRAZOLE 40 MG 10ML VIAL IV STA (15:21)
[2019-07-30] MEDS ORDERED: SODIUM CHLORIDE 0.9% 1000ML 1,000 ML IV STA (15:21)
--- NOTE | 2019-07-30 16:12 | NUR ---
pt refused to have temp checked; pt inappropriate with staff calling staff bitch and hitting on cipriano
--- NOTE | 2019-07-30 16:23 | NUR ---
PT STATES HE'S LEAVING AMA SECURITY WAS CALLED AND PT WALKED OUT OF ER WITH IV IN PLACE; JULIO RN ATTEMPTED TO TALK PT INTO STAYING BUT PT CONTINUED TO WALK OUT OF ER
--- NOTE | 2019-07-30 16:29 | NUR ---
PD CALLED FOR PT HAVING IV IN PLACE
[2019-07-30 16:37] LABS: BASOPHILS # (AUTO) 0.1 (0.0-0.1); EOSINOPHILS # (AUTO) 0.1 (0.0-0.4); HEMATOCRIT 28.4 % (38.2-49.6); HEMOGLOBIN 8.2 g/dL (14.0-18.0); LYMPHOCYTES # (AUTO) 1.9 (1.0-3.2); LYMPHOCYTES % 27.3 % (18.0-39.1); MEAN CORPUSCULAR HEMOGLOBIN 21.4 pg (28-32); MEAN CORPUSCULAR HGB CONC 28.9 g/dL (31-35); MEAN CORPUSCULAR VOLUME 74.2 fL (81-99); MONOCYTES # (AUTO) 0.9 (0.2-0.8); MONOCYTES % 12.4 % (4.4-11.3); NEUTROPHILS % 56.9 % (38.7-80.0); PLATELET COUNT 155 x10e3/uL (140-360); RED BLOOD COUNT 3.83 x10e6/uL (4.3-5.7); RED CELL DISTRIBUTION WIDTH 22.2 % (11.7-14.4)
[2019-07-30 16:51] LABS: PROTHROMBIN TIME 13.8 seconds (11.9-14.5)
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
== END 2019-07-30 16:30 | disposition home or self-care (01) ==
LOC: ER 14:41
DX: R41.82 Altered mental status, unspecified (principal); F10.129 Alcohol abuse with intoxication, unspecified; I10 Essential (primary) hypertension; E11.9 Type 2 diabetes mellitus without complications; J44.9 Chronic obstructive pulmonary disease, unspecified; B19.20 Unspecified viral hepatitis C without hepatic coma; G40.909 Epilepsy, unspecified, not intractable, without status epilepticus; F31.9 Bipolar disorder, unspecified; Z86.14 Personal history of Methicillin resistant Staphylococcus aureus infection
CPT/HCPCS: 36415; 83880; 85025; 85610; 85730; 93005; 99283; C9113; J7030

== ENCOUNTER 2019-08-13 19:07 | Emergency (ER) | payer SELFPAY ==
[~2019-08-13] VITALS: Ht 170.2 cm; Wt 104.3 kg
[2019-08-13 20:59] LABS: BASOPHILS # (AUTO) 0.1 (0.0-0.1); BASOPHILS % 1.3 % (0.0-1.0); EOSINOPHILS # (AUTO) 0.1 (0.0-0.4); HEMOGLOBIN 8.4 g/dL (14.0-18.0); LYMPHOCYTES # (AUTO) 1.9 (1.0-3.2); LYMPHOCYTES % 31.5 % (18.0-39.1); MEAN CORPUSCULAR HEMOGLOBIN 21.1 pg (28-32); MEAN CORPUSCULAR VOLUME 70.4 fL (81-99); MONOCYTES # (AUTO) 0.7 (0.2-0.8); MONOCYTES % 11.4 % (4.4-11.3); NEUTROPHILS # (AUTO) 3.2 (2.1-6.9); NEUTROPHILS % 53.6 % (38.7-80.0); PLATELET COUNT 110 x10e3/uL (140-360); RED BLOOD COUNT 3.98 x10e6/uL (4.3-5.7); RED CELL DISTRIBUTION WIDTH 20.4 % (11.7-14.4)
[2019-08-13 21:18] LABS: ALANINE AMINOTRANSFERASE 44 IU/L (0-55); ALBUMIN 3.4 g/dL (3.5-5.0); ALBUMIN/GLOBULIN RATIO 0.9 (0.8-2.0); ALKALINE PHOSPHATASE 132 IU/L (40-150); ANION GAP 17.2 mmol/L (8-16); BLOOD UREA NITROGEN < 5 mg/dL (7-26); CALCIUM 8.4 mg/dL (8.4-10.2); CARBON DIOXIDE 22 mmol/L (22-29); CHLORIDE 95 mmol/L (98-107); CREATININE, SERUM 0.81 mg/dL (0.72-1.25); EST GLOMERULAR FILTRATION RATE > 60 ML/MIN (60-); GLUCOSE 283 mg/dL (74-118); POTASSIUM 3.2 mmol/L (3.5-5.1); SODIUM 131 mmol/L (136-145)
[2019-08-13 21:21] LABS: BUN/CREATININE RATIO 6 (6-25)
--- NOTE | 2019-08-13 23:38 | NUR ---
Patient sleeping on hallway stretcher at this time. No distress noted.
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
--- NOTE | 2019-08-14 01:50 | NUR ---
Patient has gotten up several times to urinate. No distress noted.
--- NOTE | 2019-08-14 04:35 | NUR ---
Patient eloped at this time. ER MD notified.
--- NOTE | 2019-08-14 05:00 | NUR ---
Patient did not sign his DC paperwork
== END 2019-08-14 04:35 | disposition home or self-care (01) ==
LOC: ER 19:07
DX: F10.129 Alcohol abuse with intoxication, unspecified (principal); I10 Essential (primary) hypertension; E11.9 Type 2 diabetes mellitus without complications; G40.909 Epilepsy, unspecified, not intractable, without status epilepticus; J44.9 Chronic obstructive pulmonary disease, unspecified; B19.20 Unspecified viral hepatitis C without hepatic coma; F43.10 Post-traumatic stress disorder, unspecified; Z86.14 Personal history of Methicillin resistant Staphylococcus aureus infection
CPT/HCPCS: 36415; 80053; 80320; 83605; 85025; 99283

== ENCOUNTER 2019-08-14 05:28 | Emergency (ER) | payer SELFPAY ==
[~2019-08-14] VITALS: Ht 170.2 cm; Wt 104.3 kg
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
== END 2019-08-14 05:54 | disposition home or self-care (01) ==
LOC: ER 05:28
DX: F10.10 Alcohol abuse, uncomplicated (principal); Z76.5 Malingerer [conscious simulation]; I10 Essential (primary) hypertension; E11.9 Type 2 diabetes mellitus without complications; J44.9 Chronic obstructive pulmonary disease, unspecified; B19.20 Unspecified viral hepatitis C without hepatic coma; G40.909 Epilepsy, unspecified, not intractable, without status epilepticus; F31.9 Bipolar disorder, unspecified; Z86.14 Personal history of Methicillin resistant Staphylococcus aureus infection
CPT/HCPCS: 99282

== ENCOUNTER 2024-02-21 20:22 | Emergency (ER) | payer SELFPAY ==
[~2024-02-21] VITALS: Ht 172.7 cm; Wt 109.8 kg
[2024-02-21 20:38] VITALS: TEMP 99.3
[2024-02-21 22:01] LABS: BASOPHILS % 0.4 % (0.0-1.0); EOSINOPHILS # (AUTO) 0.1 (0.0-0.4); EOSINOPHILS % 1.5 % (0.0-6.0); HEMATOCRIT 25.7 % (38.2-49.6); HEMOGLOBIN 7.2 g/dL (14.0-18.0); LYMPHOCYTES # (AUTO) 0.7 (1.0-3.2); LYMPHOCYTES % 13.6 % (18.0-39.1); MEAN CORPUSCULAR HEMOGLOBIN 23.4 pg (28-32); MEAN CORPUSCULAR VOLUME 83.4 fL (81-99); MONOCYTES # (AUTO) 0.7 (0.2-0.8); NEUTROPHILS # (AUTO) 3.8 (2.1-6.9); NEUTROPHILS % 70.9 % (38.7-80.0); PLATELET COUNT 337 x10e3/uL (140-360); RED BLOOD COUNT 3.08 x10e6/uL (4.3-5.7); RED CELL DISTRIBUTION WIDTH 18.6 % (11.7-14.4); WHITE BLOOD COUNT 5.29 x10e3/uL (4.8-10.8)
[2024-02-21 22:14] LABS: ANION GAP 16.3 mmol/L (8-16); CALCIUM 8.8 mg/dL (8.4-10.2); CREATININE, SERUM 0.68 mg/dL (0.72-1.25); POTASSIUM 3.3 mmol/L (3.5-5.1)
[2024-02-21 22:42] LABS: AMPHETAMINES SCREEN,URINE NEGATIVE (NEGATIVE); BENZODIAZEPINES SCREEN,URINE POSITIVE (NEGATIVE); CANNABINOIDS SCREEN,URINE NEGATIVE (NEGATIVE); COCAINE SCREEN,URINE NEGATIVE (NEGATIVE); METHADONE SCREEN, URINE NEGATIVE (NEGATIVE); OPIATES SCREEN,URINE NEGATIVE (NEGATIVE); PHENCYCLIDINE SCREEN,URINE NEGATIVE (NEGATIVE)
[2024-02-21 23:30] VITALS: PULSE 90; RESP 17; O2SAT 100
== END 2024-02-21 23:38 | disposition home or self-care (01) ==
LOC: ER 20:27
DX: R07.89 Other chest pain (principal); D64.9 Anemia, unspecified; I10 Essential (primary) hypertension; E11.65 Type 2 diabetes mellitus with hyperglycemia; E78.5 Hyperlipidemia, unspecified; J44.9 Chronic obstructive pulmonary disease, unspecified; G40.909 Epilepsy, unspecified, not intractable, without status epilepticus; K76.9 Liver disease, unspecified; F31.9 Bipolar disorder, unspecified; F17.210 Nicotine dependence, cigarettes, uncomplicated
CPT/HCPCS: 36415; 71045; 80048; 80307; 84484; 85025; 93005; 99284